=== PATIENT | male | born 1965 | race Caucasian/White ===

== ENCOUNTER → 2016-06-15 | Outpatient (CLI) | payer BC ==
[~2016-06-15] MED LIST: LEVO137T3 PO; LORA-741 PO; LOSA100T33 PO; LOSARTAN-HCTZ PO; LPT40 PO; LXP10 PO; OMEP40CA41 PO
--- NOTE | 2016-06-15 11:34 | DIAGNOSTIC IMAGING REPORT ---
CHEST 2 VIEWS ROUTINE CLINICAL HISTORY: Acute bronchitis COMPARISON STUDY: Chest radiograph August 14, 2015. FINDINGS: Lung volumes are normal. There is no pneumothorax or pleural effusion. No consolidation is identified. There is no evidence of pulmonary edema. Cardiac size is normal. Mediastinal contours are normal. IMPRESSION: No acute cardiopulmonary findings. Electronically signed by: Holland Au M.D. 06/15/2016 11:32 AM
== END | disposition home or self-care (01) ==
LOC: C.RADBC 11:09
PROVIDERS: ATTEND Internal Medicine
DX: J20.9 Acute bronchitis, unspecified (principal)

== ENCOUNTER 2016-10-03 13:12 | Emergency (ER) | payer BC, OTHER ==
[~2016-10-03] VITALS: Ht 170.2 cm; Wt 86.6 kg
[~2016-10-03 13:12] MED LIST changes: -LOSA100T33 PO; -LXP10 PO; -OMEP40CA41 PO
[2016-10-03 13:20] VITALS: TEMP 36.5; Ht 170.2 cm; Wt 86.6 kg
--- NOTE | 2016-10-03 13:48 | DIAGNOSTIC IMAGING REPORT ---
LEFT HAND 3 VIEWS HISTORY: Left hand pain. fall COMPARISON: None. FINDINGS: There is no fracture or dislocation. Mild dorsal soft tissue swelling. No radiopaque foreign bodies. IMPRESSION: No fractures. Electronically signed by: Low Cuello M.D. 10/03/2016 1:46 PM Dictated Date/Time: 10/03/2016 1:43 PM
[2016-10-03 14:10] VITALS: BP 145/94; PULSE 76; O2SAT 94
--- NOTE | 2016-10-03 16:19 | EMERGENCY ROOM VISIT NOTE ---
History First contact with patient: 13:26 Chief Complaint: HAND PAIN/INJURY Stated Complaint: HAND PAIN History of Present Illness The patient is a 51 year old male who presents to the Emergency Room with complaints of left hand pain. The patient reports that he fell over the weekend while fishing. He does not know if he landed on a rock, but noticed sudden onset of excruciating pain in the hand. As he was attempting to get up, he fell again. The patient reports persistent swelling and bruising of the hand. He denies any pain, paresthesias or numbness radiating into the wrist or forearm. The patient is [id number], and rates his discomfort a 4 out of 10. Review of Systems 10 system review was performed and was negative except for pertinent positives and negatives as indicated in history of present illness Past Medical/Surgical History Medical Problems: (1) Anxiety State Nos (2) Diaphragmatic Hernia (3) Esophageal reflux (4) GERD (gastroesophageal reflux disease) (5) Hyperlipidemia (6) Hypertension (7) Hypothyroidism Nos (8) thyroid problems (9) Tobacco Use Disorder Surgical Problems: (1) Lumbar sacral fusion history Family History FH: heart disease FH: hypertension Social History Smoking Status: Current Every Day Smoker Alcohol Use: occasionally Marital Status: Occupation Status: employed Current/Historical Medications Scheduled Atorvastatin (Atorvastatin Calcium), 40 MG PO DAILY Levothyroxine Sodium (Levothyroxine Sodium), 137 MCG PO DAILY [Losartan-Hctz], 1 TAB PO DAILY Scheduled PRN Lorazepam (Ativan), 0.5 MG PO Q6H PRN for Anxiety/Agitation Allergies Coded Allergies: Sulfa Drugs (Verified Allergy, Mild, HIVES, 09/19/14) Physical Exam Vital Signs Date Time Temp Pulse Resp B/P Pulse Ox O2 Delivery O2 Flow Rate FiO2 10/03/16 14:10 76 18 145/94 94 Room Air 10/03/16 13:20 36.5 80 18 151/91 94 Room Air Physical Exam CONSTITUTIONAL: Healthy and well nourished. Alert and oriented X 3 with positive affect. Patient does not appear in any acute distress. HEENT: Normocephalic, atraumatic. Pupils equal, round and reactive. NECK: Full active range of motion without discomfort. MUSCULOSKELETAL: Examination of the left hand shows diffuse edema and ecchymosis of the palm and dorsal distal third and fourth carpal region. The patient otherwise is able to flex and extend the fingers with mild discomfort. Capillary refill is less than 2 seconds. Negative anatomic snuffbox tenderness. The patient has no open wounds on the hand, fingers or wrist. INTEGUMENTARY: No rash or other significant dermatologic conditions noted. NEUROLOGIC: Left hand and fingers are sensory intact. Medical Decision & Procedures ER Provider Diagnostic Interpretation: My interpretation of left hand x-rays does not show any acute fractures or dislocations. Radiologist report is as follows: LEFT HAND 3 VIEWS HISTORY: Left hand pain. fall COMPARISON: None. FINDINGS: There is no fracture or dislocation. Mild dorsal soft tissue swelling. No radiopaque foreign bodies. IMPRESSION: No fractures. ED Course Patient history and physical exam were performed. Nurse's notes were reviewed. Vital signs were reviewed and normal. X-rays of the left hand were normal. The patient was advised that his symptoms are likely secondary to a contusion. He was encouraged to intermittently apply ice and elevate hand for swelling. Ibuprofen and/or Tylenol as needed for additional pain relief. He was given instructions on range of motion exercises to prevent stiffness. Follow-up with family doctor or orthopedics if symptoms have not improved within the next 5-7 days. The patient was happy with plan care, voiced understanding of all discharge instructions, and rated his discomfort a 3 out of 10 at the time of discharge. Impression Primary Impression: Contusion of left hand Departure Information Referrals No Doctor, Assigned (PCP) Patient Instructions My [facility] Problem Qualifiers Primary Impression: Contusion of left hand Encounter type: initial encounter Qualified Codes: S60.222A - Contusion of left hand, initial encounter
[2017-04-18] MEDS ORDERED: LXP10 PO (14:31)
[2017-04-18] MEDS ORDERED: LOSA100T33 PO (14:31)
[2017-04-18] MEDS ORDERED: OMEP40CA41 PO (14:31)
== END 2016-10-03 14:11 | disposition home or self-care (01) ==
LOC: C.EDB 13:13 → C.EDD 14:11
DX: M79.642 Pain in left hand (principal); W19.XXXA Unspecified fall, initial encounter; Y93.89 Activity, other specified; K21.9 Gastro-esophageal reflux disease without esophagitis; I10 Essential (primary) hypertension; E78.5 Hyperlipidemia, unspecified; Z82.49 Family history of ischemic heart disease and other diseases of the circulatory system; F17.210 Nicotine dependence, cigarettes, uncomplicated; Z79.899 Other long term (current) drug therapy

== ENCOUNTER → 2016-10-21 | Outpatient (CLI) | payer BC ==
[~2016-10-21] MED LIST changes: +LOSA100T33 PO; +LXP10 PO; +OMEP40CA41 PO
[2016-10-21 11:16] LABS: BLOOD UREA NITROGEN 14 mg/dl (7-18); BUN/CREATININE RATIO 12.8 (10-20); CARBON DIOXIDE 28 mmol/L (21-32); CHLORIDE 105 mmol/L (98-107); GLUCOSE 108 mg/dl (70-99); POTASSIUM 4.1 mmol/L (3.5-5.1); SODIUM 139 mmol/L (136-145)
[2016-10-21 11:58] LABS: CALCIUM 9.3 mg/dl (8.5-10.1)
== END | disposition home or self-care (01) ==
LOC: C.LABBC 08:02
PROVIDERS: ATTEND Internal Medicine
DX: I10 Essential (primary) hypertension (principal)

== ENCOUNTER → 2017-03-14 | Outpatient (CLI) | payer BC ==
[~2017-03-14] MED LIST changes: -LOSA100T33 PO; -LXP10 PO; -OMEP40CA41 PO
[2017-03-14 11:21] LABS: BASO % 1.1 %; COMPLETE YES; EOS % 5.3 %; HEMATOCRIT 46.8 % (42-52); IG% 0.2 %; LYMPH % 18.7 %; MEAN CELL VOLUME 96.1 fL (80-100); MEAN CORPUSCULAR HGB CONC 33.3 g/dl (32-36); MEAN PLATELET VOLUME 10.6 fL (7.4-10.4); MONO % 12.3 %; NEUT % 62.4 %; PLATELET COUNT 204 K/uL (130-400); RED BLOOD COUNT 4.87 M/uL (4.7-6.1); WHITE BLOOD COUNT 9.11 K/uL (4.8-10.8)
[2017-03-14 11:27] LABS: ALT/SGPT 46 U/L (12-78); BLOOD UREA NITROGEN 16 mg/dl (7-18); CALCIUM 9.2 mg/dl (8.5-10.1); CARBON DIOXIDE 29 mmol/L (21-32); CHLORIDE 104 mmol/L (98-107); CHOLESTEROL 222 mg/dl (0-200); GLUCOSE 98 mg/dl (70-99); POTASSIUM 3.7 mmol/L (3.5-5.1); SODIUM 140 mmol/L (136-145)
[2017-03-14 11:37] LABS: ALKALINE PHOSPHATASE 82 U/L (45-117); AST/SGOT 34 U/L (15-37); CHOLESTEROL/HDL RATIO 2.2; HDL CHOLESTEROL 100 mg/dl; LDL CHOLESTEROL CALCULATED 104 mg/dl; TRIGLYCERIDES 89 mg/dl (0-150); VERY LOW DENSITY LIPOPROT CALC 18 mg/dl
== END | disposition home or self-care (01) ==
LOC: C.LABBC 07:39
PROVIDERS: ATTEND Internal Medicine
DX: K21.9 Gastro-esophageal reflux disease without esophagitis (principal); E03.9 Hypothyroidism, unspecified

== ENCOUNTER 2020-02-24 23:46 | Observation (INO) ==
[2020-02-24] MEDS ORDERED: NITROGLYCERIN SL 0.4 MG/TAB TAB SL STA (23:58)
[2020-02-24] MEDS ORDERED: FAMOTIDINE 20 MG TAB PO ONE (23:58)
[2020-02-24] MEDS ORDERED: GI COCKTAIL ED USE PO ONE (23:58)
[2020-02-24] MEDS ORDERED: ASPIRIN 81 MG CHEW PO STA (23:58)
--- NOTE | 2020-02-25 00:03 | Emergency Department Note ---
Impression & Plan Left-sided chest pain, Alcohol intoxication, Hypokalemia, Hypomagnesemia ED Provider Note Name: SACHIN MCCALL Age: 55 Sex: M Arrives Via: Walk-In Informant: Patient ED Provider: Abdirahman Mukherjee MD Chief Complaint: Left Chest Pain Impression: Left-Sided Chest Pain Alcohol Intoxication Hypokalemia Hypomagnesemia Medical Decision Makin yr old male with history of Hypothyroid, HTN, GERD, DLP, Anxiety, Depression, Asthma and alcoholism arrives with acute left sided chest pain. Intermittent chest pain over the previous month or so without cardiac work-up thus far. Symptoms tonight far greater intensity and duration. Symptoms resolved with SLNTG. Given ASA and with this felt GI Cocktail/Pepcid given acute alcohol use and previous GERD issues. Patient makes clear Chest pain is not similar to GERD symptoms. He has quite an elevated ETOH though by exam is not heavily intoxicated. Good bilateral lower extremity pulses, normal CXR, and symptoms resolving thus I feel dissection risk is low and CTA not indicated. No hypoxia, no DVT findings, no PE/DVT history, and symptoms resolved with SLNTG, thus CTA for PE not indicated. Patient has multiple electrolyte issues consistent with chronic alcoholism thus banana bag given along with K and Mag. Patient stable throughout and agreeable to hospitalization. He is requesting catheterization but I discussed with him given normal trop, unremarkable EKG, and resolution of pain no indication at this time for cath team and further work-up needed before proceeding that direction. Prior Medical Record and Triage/Nursing Notes reviewed by Me Additional history obtained from chart Differentials:Cardiac ischemia, aortic dissection, pulmonary embolism, pn eumothorax, pneumonia, pericarditis, myocarditis, esophageal rupture, GERD, cholecystitis, pancreatitis, musculoskeletal, as well as other pathologies. Vital Signs: reviewed and remarkable for no significant abnormalities Interventions: saline lock, snltg, asa 162mg po, gi cocktail, pepcid po Labs:Reviewed and remarkable for hypoK, HypoMag Imaging:X ray results are stated below per my interpretation: Chest: 1 view: No infiltrate, no effusion, normal cardiac border. EKG:Per My Interpretation: Indication left Chest Pain: NSR 83 bpm, qtc 437. No Ectopy. No Ischemia. No previous for comparison Cardiac/Tele Monitoring: Cardiac Monitoring: An Order was placed for continuous cardiac monitoring. The monitor shows a rate of 80 with a normal sinus rhythm. Consults:Dr John JOHNSON Hospitalist Plan: Disposition:Hospitalization. Condition: Good Blood pressure:Normal.No Referral necessary Prescriptions:none PDMP: n/a History of Present Illness:55 yr old male with history HTN, DLP, Alcoholism, Hypothyroid, GERD arrives for evaluation of chest pain. Patient notes rapid onset left anterior chest pain over the last few hours. Worse with exertion. Better with rest. ASA 81mg PO x 2 without improvement. Denies cough, sob, syncope, headache, neck pain, nausea, vomiting, abdominal pain, weakness, nor other symptoms. No previous CAD though last stress test several years ago. Father of PA. Admits ETOH tonight. Denies left chest pain this severe before, though has had on and off chest pains for the last month without them being this severe nor this long lasting. No leg nor calf pain/swelling. Admits father of PA. ROS: See above HPI for pertinent positives & negatives. A total of 10 systems reviewed and were otherwise negative. Past Medical History:HTN, DLP, Alcoholism, Hypothyroid, GERD Past Surgical History:See Below Family History:See Below Social History:Smoker, Alcoholic, Home Medications:See Below Allergies:Sulfa, Ramses, Amlodipine, Clonidine, chantix Vitals:Blood Pressure: 152/103, Pulse 81, RR 24, T 36.5C, O2 99% on RA Physical Exam: GENERAL: Patient is uncomfortable appearing and in moderate distress. Smells slightly of alcohol EYES: No scleral icterus, unremarkable pupils. ENT: Mucous membranes moist, no nasal congestion. NECK: No masses appreciated, nomeningismus, trachea is midline. RESPIRATORY: No dyspnea. Clear to auscultation and equal bilaterally. No wheeze, no rhonchi. CARDIOVASCULAR: Regular rate and rhythm.No murmurs, rubs, gallops appreciated. GASTROINTESTINAL: Abdomen soft, non-tender, no peritonitis.Bowel sounds positive.No masses appreciated. BACK: No midline tenderness, no CVA tenderness EXTREMITIES: Normal motion all extremities, no cyanosis, no edema. NEUROLOGIC: Alert and oriented, no acute motor or sensory deficits, no focal weakness, cranial nerves grossly intact. SKIN: No rash, no jaundice, no diaphoresis. PSYCH: Appropriate GCS: 15 ED Course: Times/Reassessments: improved with meds and BP trending normal. Abdirahman Mukherjee MD Past Med/Surg History Medical History (Updated 02/25/20 @ 03:43 by Abdirahman Mukherjee MD) Adjustment disorder with depressed mood Alcohol intoxication Allergic rhinitis Anxiety Barretts esophagus Chronic cough Colon polyps Compression fracture of vertebra Current smoker GERD (gastroesophageal reflux disease) Hiatal hernia Hyperlipidemia Hypertension Hypothyroidism Inhibited sexual excitement Obstructive sleep apnea Periodic limb movements of sleep Small airways disease Surgical History History of appendectomy History of colonoscopy History of esophagogastroduodenoscopy (EGD) History of lumbar spinal fusion History of tonsillectomy History of tooth extraction WISDOM TEETH Hx of vasectomy S/P LASIK surgery of both eyes S/P wrist surgery R WRIST REPAIR OF TORN TENDON Family History Father Alcohol abuse COPD (chronic obstructive pulmonary disease) Hypertension Reported family history of early sudden deaths Mother Hypertension Hyperlipidemia Brother Hypertension Sister Graves' disease Social History (Updated 11/11/19 @ 10:33 by Apurva Espinal) Smoking Status: Current every day smoker Cigarettes Per Day: ABOUT 14 A DAY; Second Hand Exposure: No; Hx Alcohol Use: Yes Alcohol type: beer, wine and hard liquor Hx Substance Use: No Preferred Language: Gabonese Communication Ability: Effective Visual Impairment: Limited Hearing Ability: Normal Specialty Therapist Required: No Beliefs That Will Affect Care: None marital status: Current Living Situation: Alone Current Living Situation Comment: LIVES WITH GIRLFRIEND current occupational status: employed current occupation: [employer] Feels Safe at Home: Yes Safety Concerns: Feels Safe At This Time Childhood Exposure to Second-Hand Smoke: No caffeine: Yes Dental Care, Regularly: Yes Physical Activity Frequency: Does not Exercise Seatbelt Use: always Sunscreen Use: No Allergies Allergies Allergy/AdvReac Type Severity Reaction Status Date / Time Sulfa (Sulfonamide Allergy Mild HIVES Verified 02/25/20 00:36 Antibiotics) RAMSES Inhibitors Allergy COUGH Verified 02/25/20 00:36 amlodipine Allergy FATIGUE Verified 02/25/20 00:36 clonidine Allergy HEADACHES Verified 02/25/20 00:36 varenicline [From Chantix] Allergy Unknown Verified 02/25/20 00:36 Home Meds Previous Rx's Medication Instructions Recorded albuterol sulfate 90 mcg/actuation 1 puff INHALATION Q4H PRN #18 gm 03/15/19 aerosol inhaler atorvastatin 40 mg tablet 40 mg PO QPM #90 tab 08/29/19 escitalopram oxalate 10 mg tablet 10 mg PO QPM #90 tab 08/29/19 omeprazole 40 mg capsule,delayed 40 mg PO QPM #90 cap 08/29/19 release valsartan 160 1 tab PO DAILY #90 tab 08/29/19 mg-hydrochlorothiazide 12.5 mg tablet disulfiram 250 mg tablet 250 mg PO BID #180 tab 11/11/19 levothyroxine 137 mcg tablet 137 mcg PO DAILY #90 tab 01/06/20 tadalafil 5 mg tablet 5 mg PO DAILY #30 tab 01/14/20 Results & Data (ED) Vital Signs Vital Signs - 24 hr 02/24/20 23:52 02/24/20 23:53 02/24/20 23:57 Temperature 36.5 C Temperature Source Oral Pulse Rate 81 78 79 Pulse Rate from SpO2 Sensor 78 81 Respiratory Rate 24 16 21 Respiratory Effort / Characteristics Non-Labored Spontaneous Respiratory Depth Normal Blood Pressure 152/103 H 152/103 H Blood Pressure Mean 119 112 Pulse Oximetry 95 98 98 Oxygen Delivery Method Room Air Room Air Sepsis Recent Fever Within 48 Hours No Sepsis New/Unexplained Change in Mental Status No Sepsis Action Taken by Nursing No Action Required Pulse Oximetry Post Tiitration 99 02/25/20 00:00 02/25/20 00:01 02/25/20 00:10 Temperature Temperature Source Pulse Rate 75 75 77 Pulse Rate from SpO2 Sensor 75 75 78 Respiratory Rate 16 14 13 Respiratory Effort / Characteristics Respiratory Depth Blood Pressure 151/95 H Blood Pressure Mean 99 Pulse Oximetry 97 96 96 Oxygen Delivery Method Sepsis Recent Fever Within 48 Hours Sepsis New/Unexplained Change in Mental Status Sepsis Action Taken by Nursing Pulse Oximetry Post Tiitration 02/25/20 00:12 02/25/20 00:13 02/25/20 00:20 Temperature Temperature Source Pulse Rate 83 78 77 Pulse Rate from SpO2 Sensor 84 79 78 Respiratory Rate 20 20 16 Respiratory Effort / Characteristics Respiratory Depth Blood Pressure 121/75 Blood Pressure Mean 93 Pulse Oximetry 91 95 94 Oxygen Delivery Method Sepsis Recent Fever Within 48 Hours Sepsis New/Unexplained Change in Mental Status Sepsis Action Taken by Nursing Pulse Oximetry Post Tiitration 02/25/20 00:33 02/25/20 00:34 02/25/20 00:40 Temperature Temperature Source Pulse Rate 80 77 76 Pulse Rate from SpO2 Sensor 79 76 76 Respiratory Rate 13 Respiratory Effort / Characteristics Respiratory Depth Blood Pressure 113/66 Blood Pressure Mean 82 Pulse Oximetry 94 96 93 Oxygen Delivery Method Sepsis Recent Fever Within 48 Hours Sepsis New/Unexplained Change in Mental Status Sepsis Action Taken by Nursing Pulse Oximetry Post Tiitration 02/25/20 00:50 02/25/20 01:00 02/25/20 01:01 Temperature Temperature Source Pulse Rate 77 74 76 Pulse Rate from SpO2 Sensor 77 74 76 Respiratory Rate 24 12 17 Respiratory Effort / Characteristics Respiratory Depth Blood Pressure 99/65 L Blood Pressure Mean 70 Pulse Oximetry 94 92 94 Oxygen Delivery Method Sepsis Recent Fever Within 48 Hours Sepsis New/Unexplained Change in Mental Status Sepsis Action Taken by Nursing Pulse Oximetry Post Tiitration 02/25/20 01:10 02/25/20 01:20 02/25/20 01:30 Temperature Temperature Source Pulse Rate 74 69 73 Pulse Rate from SpO2 Sensor 73 70 71 Respiratory Rate 16 21 12 Respiratory Effort / Characteristics Respiratory Depth Blood Pressure 119/79 Blood Pressure Mean 94 Pulse Oximetry 90 94 94 Oxygen Delivery Method Sepsis Recent Fever Within 48 Hours Sepsis New/Unexplained Change in Mental Status Sepsis Action Taken by Nursing Pulse Oximetry Post Tiitration 02/25/20 01:31 02/25/20 01:40 02/25/20 01:50 Temperature Temperature Source Pulse Rate 73 76 67 Pulse Rate from SpO2 Sensor 72 75 67 Respiratory Rate 17 18 17 Respiratory Effort / Characteristics Respiratory Depth Blood Pressure Blood Pressure Mean Pulse Oximetry 95 94 93 Oxygen Delivery Method Sepsis Recent Fever Within 48 Hours Sepsis New/Unexplained Change in Mental Status Sepsis Action Taken by Nursing Pulse Oximetry Post Tiitration Laboratory Data Result diagrams: 02/24/20 23:59 02/25/20 02:48 Lab Results 02/24/20 02/24/20 02/25/20 Range/Units 23:59 23:59 00:10 WBC 9.07 (4.8-10.8) K/uL RBC 4.16 L (4.7-6.1) M/uL Hgb 13.9 L (14.0-18.0) g/dL Hct 40.0 L (42-52) % MCV 96.2 (80-100) fL MCH 33.4 (25-34) pg MCHC 34.8 (32-36) g/dL RDW Std Deviation 50.8 H (36.4-46.3) fL RDW Coeff of Joshua 14.6 H (11.5-14.5) % Plt Count 190 (130-400) K/uL MPV 9.8 (7.4-10.4) fL Immature Gran % (Auto) 0.3 % Neut % (Auto) 57.5 % Lymph % (Auto) 29.1 % Peach % (Auto) 10.1 % Eos % (Auto) 2.6 % Baso % (Auto) 0.4 % Neut # (Auto) 5.20 (1.4-6.5) K/uL Lymph # (Auto) 2.64 (1.2-3.4) K/uL Peach # (Auto) 0.92 H (0.11-0.59) K/uL Eos # (Auto) 0.24 (0-0.5) K/uL Baso # (Auto) 0.04 (0-0.2) K/uL Immature Gran # (Auto) 0.03 H (0.00-0.02) K/uL Sodium 141 (136-145) mmol/L Potassium 3.0 L (3.5-5.1) mmol/L Chloride 104 (98-107) mmol/L Carbon Dioxide 25 (21-32) mmol/L Anion Gap 12.0 H (3-11) BUN 10 (7-18) mg/dl Creatinine 1.08 (0.6-1.4) mg/dl Est Cr Clr Drug Dosing 81.4 ml/min Est GFR ( Amer) 88.5 Est GFR (Non-Af Amer) 76.3 BUN/Creatinine Ratio 9.6 L (10-20) Glucose 118 H (70-99) mg/dl Calcium 8.9 (8.5-10.1) mg/dl Magnesium 1.7 L (1.8-2.4) mg/dl Total Bilirubin 0.3 (0.2-1) mg/dl Direct Bilirubin < 0.1 (0-0.2) mg/dl AST 32 (15-37) U/L ALT 53 (12-78) U/L Alkaline Phosphatase 87 (45-117) U/L Troponin I < 0.015 (0-0.045) ng/ml Total Protein 7.5 (6.4-8.2) gm/dl Albumin 3.7 (3.4-5.0) gm/dl Ethyl Alcohol mg/dL 270.0 H (0-3) mg/dl Administered Medications Potassium Chloride/Sodium Chloride (Normal Saline W/20 Meq Kcl) 20 meq in 1,000 mls @ 100 mls/hr IV .Q10H NAEEM Stop: 03/26/20 02:59 Last Admin: 02/25/20 03:15 Dose: 100 mls/hr Documented by: [id number] Discontinued Medications Al Hydrox/Mg Hydrox/Simethicone (Gi Cocktail Ed Use) 1 dose PO ONE ONE Stop: 02/24/20 23:59 Last Admin: 02/25/20 00:12 Dose: 1 dose Documented by: [id number] Aspirin (Aspirin 81 Mg Chew) 162 mg PO NOW STA Stop: 02/24/20 23:59 Last Admin: 02/25/20 00:12 Dose: 162 mg Documented by: [id number] Famotidine (Famotidine 20 Mg Tab) 20 mg PO NOW ONE Stop: 02/24/20 23:59 Last Admin: 02/25/20 00:12 Dose: 20 mg Documented by: [id number] Multivitamins 10 ml/ Thiamine HCl 100 mg/ Folic Acid 1 mg/Sodium Chloride 1,011.2 mls @ 1,011.2 mls/hr IV .Q1H ONE Stop: 02/25/20 01:49 Last Infusion: 02/25/20 02:12 Dose: 0 mls/hr Documented by: [id number] Admin: 02/25/20 01:11 Dose: 1,011.2 mls/hr Documented by: [id number] Magnesium Sulfate/Dextrose (Magnesium Sulfate / D5w) 1 gm in 100 mls @ 100 mls/hr IV NOW STA Stop: 02/25/20 01:49 Last Infusion: 02/25/20 02:12 Dose: 0 mls/hr Documented by: [id number] Admin: 02/25/20 01:11 Dose: 100 mls/hr Documented by: [id number] Potassium Chloride (K Felice / Wtr) 10 meq in 100 mls @ 100 mls/hr IV ONE ONE Stop: 02/25/20 01:49 Last Infusion: 02/25/20 02:12 Dose: 0 mls/hr Documented by: [id number] Admin: 02/25/20 01:11 Dose: 100 mls/hr Documented by: [id number] Nitroglycerin (Nitroglycerin Sl 0.4 Mg/Tab Tab) 0.4 mg SL NOW STA Stop: 02/24/20 23:59 Last Admin: 02/25/20 00:12 Dose: 0.4 mg Documented by: [id number] Potassium Chloride (Potassium Chloride 20 Meq Tabcr) 40 meq PO NOW STA Stop: 02/25/20 02:42 Last Admin: 02/25/20 03:15 Dose: 40 meq Documented by: [id number] Discharge Plan Visit Data Chief Complaint: Chest Pain Stated Complaint: CHEST PAIN ED Provider: Abdirahman Mukherjee Discharge Problem: Left-sided chest pain, Alcohol intoxication, Hypokalemia, Hypomagnesemia Patient Disposition: Admitted As Inpatient Discharge Instructions Interventions: ED Discharge Assessment Last Done: 02/25/20 02:19 Discharge Problem: Alcohol intoxication Qualifiers: Complication of substance-induced condition: uncomplicated Qualified Code(s): F10.920 - Alcohol use, unspecified with intoxication, uncomplicated
[2020-02-25 00:14] LABS: Basophils # (auto) 0.04 K/uL (0-0.2); Basophils % (auto) 0.4 %; Eosinophils # (auto) 0.24 K/uL (0-0.5); Eosinophils % (auto) 2.6 %; Hemoglobin 13.9 g/dL (14.0-18.0); Immature Granulocytes # (auto) 0.03 K/uL (0.00-0.02); Immature Granulocytes % (auto) 0.3 %; Lymphocytes # (auto) 2.64 K/uL (1.2-3.4); Lymphocytes % (auto) 29.1 %; Mean Corpuscular Hemoglobin 33.4 pg (25-34); Mean Corpuscular Hgb Conc 34.8 g/dL (32-36); Mean Corpuscular Volume 96.2 fL (80-100); Mean Platelet Volume 9.8 fL (7.4-10.4); Monocytes # (auto) 0.92 K/uL (0.11-0.59); Monocytes % (auto) 10.1 %; Neutrophils % (auto) 57.5 %; Platelet Count 190 K/uL (130-400); RDW Coefficient of Variation 14.6 % (11.5-14.5); RDW Standard Deviation 50.8 fL (36.4-46.3); Red Blood Count 4.16 M/uL (4.7-6.1); White Blood Count 9.07 K/uL (4.8-10.8)
[2020-02-25 00:38] LABS: Alanine Aminotransferase 53 U/L (12-78); Albumin Level 3.7 gm/dl (3.4-5.0); Aspartate Aminotransferase 32 U/L (15-37); BUN Creatinine Ratio 9.6 (10-20); Bilirubin Direct < 0.1 mg/dl (0-0.2); Blood Urea Nitrogen 10 mg/dl (7-18); Calcium 8.9 mg/dl (8.5-10.1); Carbon Dioxide 25 mmol/L (21-32); Chloride 104 mmol/L (98-107); Creatinine Clr Calc Pharmacy 81.4 ml/min; Est GFR (African American) 88.5; Est GFR (Non-African American) 76.3; Glucose 118 mg/dl (70-99); Magnesium 1.7 mg/dl (1.8-2.4); Sodium 141 mmol/L (136-145)
[2020-02-25 00:43] LABS: Alkaline Phosphatase 87 U/L (45-117); Bilirubin,Total 0.3 mg/dl (0.2-1); Total Protein 7.5 gm/dl (6.4-8.2); Troponin I < 0.015 ng/ml (0-0.045)
[2020-02-25] MEDS ORDERED: MULTI-VITAMIN INFUSION 10 ML, THIAMINE HCL 100 MG, FOLIC ACID 1 MG in SODIUM CHLORIDE 0... IV ONE (00:50)
[2020-02-25] MEDS ORDERED: MAGNESIUM SULFATE / D5W 1 GM/100 ML BAG IV STA (00:50)
[2020-02-25] MEDS ORDERED: POTASSIUM CHLORIDE / WTR 10 MEQ/100 ML PLCT IV ONE (00:50)
--- NOTE | 2020-02-25 01:54 | History & Physical Report ---
Date of Service February 25, 2020 Assessment & Plan (1) Left-sided chest pain: The patient will be admitted to telemetry for serial cardiac enzymes, serial EKG's, cardiac rhythm monitoring and a 2-D echocardiogram with Dopplers. Risk factors include age, hypertension, hyperlipidemia and tobacco use. Holding his antihypertensives at this time due to blood pressure of 99/65 while in the ED. Present on Admission?: Yes (2) Alcohol intoxication: Alcohol intoxication/alcohol abuse- Hold disulfiram. Present on Admission?: Yes (3) Hypokalemia: Potassium 3.0 upon admission and magnesium 1.7. Replace both orally and IV. Follow serial laboratories. Hold for losartan/HCTZ Present on Admission?: Yes (4) Asthma: Hold albuterol HFA Present on Admission?: Yes (5) Hypothyroidism: Continue levothyroxine 137 mcg daily Present on Admission?: Yes (6) Anxiety: Continue Lexapro 10 mg daily Present on Admission?: Yes (7) Hypertension: (8) Barretts esophagus: Hunter's esophagus/GERD- Omeprazole 40 mg p.o. daily Present on Admission?: Yes (9) Hyperlipidemia: Continue atorvastatin 40 mg p.o. daily. Check a fasting lipid panel and hemoglobin A1c Present on Admission?: Yes (10) Alcohol abuse: Holding disulfiram as noted above Present on Admission?: Yes History of Present Illness Chief Complaint: The patient presents to the emergency department with complaint of severe left-sided chest pain, that was improved by sublingual nitroglycerin in the ED. Primary Care Provider: Harmeet Wright MD The patient is a 55-year-old male past medical history including asthma, hypothyroidism, adjustment disorder with depressed mood, allergic rhinitis, anxiety, Hunter's esophagus, chronic cough, colon polyps, hiatal hernia, obstructive sleep apnea, periodic limb movements of sleep, small airways disease, hypertension, alcohol use disorder, hyperlipidemia and GERD. The patient presents to the ED tonight with acute onset of severe left-sided chest pain, unlike ending is experienced in the past. He tried taking 2 baby aspirin at home without relief, but did have significant improvement with sublingual nitroglycerin given in the ED. He has had a stress test in the past, but has not had a cardiac catheterization. His father reportedly because his heart stopped, but there was no confirmation of MRI per the patient Allergies Allergy/AdvReac Type Severity Reaction Status Date / Time Sulfa (Sulfonamide Allergy Mild HIVES Verified 02/25/20 00:36 Antibiotics) MARGARET Inhibitors Allergy COUGH Verified 02/25/20 00:36 amlodipine Allergy FATIGUE Verified 02/25/20 00:36 clonidine Allergy HEADACHES Verified 02/25/20 00:36 varenicline [From Chantix] Allergy Unknown Verified 02/25/20 00:36 Home Medications Home Medications Medication Instructions Recorded Confirmed Type albuterol sulfate 90 mcg/actuation 1 puff INHALATION Q4H PRN #18 gm 03/15/19 02/25/20 Rx aerosol inhaler atorvastatin 40 mg tablet 40 mg PO QPM #90 tab 08/29/19 02/25/20 Rx escitalopram oxalate 10 mg tablet 10 mg PO QPM #90 tab 08/29/19 02/25/20 Rx omeprazole 40 mg capsule,delayed 40 mg PO QPM #90 cap 08/29/19 02/25/20 Rx release valsartan 160 1 tab PO DAILY #90 tab 08/29/19 02/25/20 Rx mg-hydrochlorothiazide 12.5 mg tablet disulfiram 250 mg tablet 250 mg PO BID #180 tab 11/11/19 02/25/20 Rx levothyroxine 137 mcg tablet 137 mcg PO DAILY #90 tab 01/06/20 02/25/20 Rx tadalafil 5 mg tablet 5 mg PO DAILY #30 tab 01/14/20 02/25/20 Rx Past Med/Surg History Medical History (Updated 02/25/20 @ 03:43 by Abdirahman Mukherjee MD) Adjustment disorder with depressed mood Alcohol abuse Alcohol intoxication Allergic rhinitis Anxiety Barretts esophagus Chronic cough Colon polyps Compression fracture of vertebra Current smoker GERD (gastroesophageal reflux disease) Hiatal hernia Hyperlipidemia Hypertension Hypothyroidism Inhibited sexual excitement Obstructive sleep apnea Periodic limb movements of sleep Small airways disease Surgical History History of appendectomy History of colonoscopy History of esophagogastroduodenoscopy (EGD) History of lumbar spinal fusion History of tonsillectomy History of tooth extraction WISDOM TEETH Hx of vasectomy S/P LASIK surgery of both eyes S/P wrist surgery R WRIST REPAIR OF TORN TENDON Family History Father Alcohol abuse COPD (chronic obstructive pulmonary disease) Hypertension Reported family history of early sudden deaths Mother Hypertension Hyperlipidemia Brother Hypertension Sister Graves' disease Social History (Updated 11/11/19 @ 10:33 by Apurva Espinal) Smoking Status: Current every day smoker Cigarettes Per Day: ABOUT 14 A DAY; Second Hand Exposure: No; Hx Alcohol Use: Yes Alcohol type: beer, wine and hard liquor Hx Substance Use: No Preferred Language: Greenlandic Communication Ability: Effective Visual Impairment: Limited Hearing Ability: Normal [employer] Carpets Required: No Beliefs That Will Affect Care: None marital status: Current Living Situation: Alone Current Living Situation Comment: LIVES WITH GIRLFRIEND current occupational status: employed current occupation: [employer] Feels Safe at Home: Yes Safety Concerns: Feels Safe At This Time Childhood Exposure to Second-Hand Smoke: No caffeine: Yes Dental Care, Regularly: Yes Physical Activity Frequency: Does not Exercise Seatbelt Use: always Sunscreen Use: No Review of Systems Review of Systems: The patient denies palpitations, shortness of breath, dyspnea on exertion, lower extremity swelling, sore throat, fevers, chills, sweats, fatigue, nausea, vomiting, diarrhea , constipation, abdominal pain, pelvic pain, blood in urine or stool, dysuria, urinary frequency or urgency, lightheadedness, dizziness, headache, memory loss, loss of consciousness, rash, abnormal bruising or bleeding, imbalance, focal or generalized weakness, numbness or tingling in arms or legs, generalized arthralgias or myalgias, back or neck pain, or night sweats. The review of systems is otherwise negative other than for that already noted above, and at least 10 systems have been reviewed. Physical Exam Physical Exam: The patient is awake, alert and oriented 3, well developed and well nourished, normocephalic and atraumatic, lying in bed and in no acute distress. HEENT--PERRL, EOMI, mucous membranes and oropharynx normal. Neck--supple. No JVD. No bruits. Thyroid normal, trachea midline, no adenopathy. Heart--normal S1 and S2. No murmurs, rubs or gallops. Lungs--clear bilaterally, no respiratory distress, no accessory muscle use. Abdomen--normal bowel sounds and soft. Nontender. Nondistended. Mildly tympanitic and distended Extremities--no cyanosis or clubbing. No edema. Dermatologic--normal skin turgor, normal color, no abnormal lymph nodes, no rash. Neurologic--cranial nerves II through XII grossly intact. Rheumatologic--normal range of motion. Psychiatric--normal affect. Results & Data Results & Data ([facility]) Vital Signs (Past 12 Hours) Vital Signs Temp Pulse Resp BP Pulse Ox 02/25/20 00:20 77 16 94 02/25/20 00:13 78 20 95 02/25/20 00:12 83 20 121/75 91 02/25/20 00:10 77 13 96 02/25/20 00:01 75 14 96 02/25/20 00:00 75 16 151/95 H 97 02/24/20 23:57 79 21 98 02/24/20 23:53 78 16 152/103 H 98 02/24/20 23:52 97.7 F 81 24 152/103 H 95 Laboratory Results Laboratory Results WBC 9.07 K/uL (4.8-10.8) 02/24/20 23:59 RBC 4.16 M/uL (4.7-6.1) L 02/24/20 23:59 Hgb 13.9 g/dL (14.0-18.0) L 02/24/20 23:59 Hct 40.0 % (42-52) L 02/24/20 23:59 MCV 96.2 fL (80-100) 02/24/20 23:59 MCH 33.4 pg (25-34) 02/24/20 23:59 MCHC 34.8 g/dL (32-36) 02/24/20 23:59 RDW Std Deviation 50.8 fL (36.4-46.3) H 02/24/20 23:59 RDW Coeff of Joshua 14.6 % (11.5-14.5) H 02/24/20 23:59 Plt Count 190 K/uL (130-400) 02/24/20 23:59 MPV 9.8 fL (7.4-10.4) 02/24/20 23:59 Immature Gran % (Auto) 0.3 % 02/24/20 23:59 Neut % (Auto) 57.5 % 02/24/20 23:59 Lymph % (Auto) 29.1 % 02/24/20 23:59 [place] % (Auto) 10.1 % 02/24/20 23:59 Eos % (Auto) 2.6 % 02/24/20 23:59 Baso % (Auto) 0.4 % 02/24/20 23:59 Neut # (Auto) 5.20 K/uL (1.4-6.5) 02/24/20 23:59 Lymph # (Auto) 2.64 K/uL (1.2-3.4) 02/24/20 23:59 [place] # (Auto) 0.92 K/uL (0.11-0.59) H 02/24/20 23:59 Eos # (Auto) 0.24 K/uL (0-0.5) 02/24/20 23:59 Baso # (Auto) 0.04 K/uL (0-0.2) 02/24/20 23:59 Immature Gran # (Auto) 0.03 K/uL (0.00-0.02) H 02/24/20 23:59 Sodium 145 mmol/L (136-145) 02/25/20 02:48 Potassium 3.7 mmol/L (3.5-5.1) D 02/25/20 02:48 Chloride 109 mmol/L (98-107) H 02/25/20 02:48 Carbon Dioxide 30 mmol/L (21-32) 02/25/20 02:48 Anion Gap 6.0 (3-11) 02/25/20 02:48 BUN 10 mg/dl (7-18) 02/25/20 02:48 Creatinine 1.01 mg/dl (0.6-1.4) 02/25/20 02:48 Est Cr Clr Drug Dosing 85.9 ml/min 02/25/20 02:48 Est GFR ( Amer) 95.9 02/25/20 02:48 Est GFR (Non-Af Amer) 82.8 02/25/20 02:48 BUN/Creatinine Ratio 9.8 (10-20) L 02/25/20 02:48 Glucose 101 mg/dl (70-99) H 02/25/20 02:48 Calcium 8.5 mg/dl (8.5-10.1) 02/25/20 02:48 Magnesium 1.7 mg/dl (1.8-2.4) L 02/24/20 23:59 Total Bilirubin 0.3 mg/dl (0.2-1) 02/24/20 23:59 Direct Bilirubin < 0.1 mg/dl (0-0.2) 02/24/20 23:59 AST 32 U/L (15-37) 02/24/20 23:59 ALT 53 U/L (12-78) 02/24/20 23:59 Alkaline Phosphatase 87 U/L (45-117) 02/24/20 23:59 Troponin I < 0.015 ng/ml (0-0.045) 02/24/20 23:59 Total Protein 7.5 gm/dl (6.4-8.2) 02/24/20 23:59 Albumin 3.7 gm/dl (3.4-5.0) 02/24/20 23:59 Ethyl Alcohol mg/dL 270.0 mg/dl (0-3) H 02/25/20 00:10 Code Status & VTE Plan Code Status Full code VTE Prophylaxis Plan VTE Prophylaxis will be ordered: Yes PG Care Time/CCT Total # of Minutes Spent Total Time Spent with Patient: Total time spent is greater than 50% in coordination of care (as documented) at patient's floor/unit and/or counseling patient: Coding Level of Care Code 03580 OBS Care - Level 3 Diagnoses Left-sided chest pain R07.9 Alcohol intoxication F10.920 Complication of substance-induced condition: uncomplicated Hypokalemia E87.6 Asthma J45.909 Hypothyroidism E03.9 Anxiety F41.9 Hypertension I10 Barretts esophagus K22.70 Hyperlipidemia E78.5 Alcohol abuse F10.10 (1) Alcohol intoxication Complication of substance-induced condition: uncomplicated Qualified Code(s): F10.920 - Alcohol use, unspecified with intoxication, uncomplicated
[2020-02-25] MEDS ORDERED: ACETAMINOPHEN 325 MG TAB PO PRN (02:41)
[2020-02-25] MEDS ORDERED: MAGNESIUM HYDROXIDE SUSP 30 ML UDC PO PRN (02:41)
[2020-02-25] MEDS ORDERED: POTASSIUM CHLORIDE 20 MEQ TABCR PO STA (02:41)
[2020-02-25] MEDS ORDERED: ONDANSETRON INJ 2 MG/ML 2 ML VIAL IV PRN (02:41)
[2020-02-25] MEDS ORDERED: ALUMINUM/MAGNESIUM SUSP 30 ML UDC PO PRN (02:41)
[2020-02-25] MEDS ORDERED: NSS + 20MEQ KCL 20 MEQ/1,000 ML BAG IV SCH (03:00)
[2020-02-25 03:26] LABS: BUN Creatinine Ratio 9.8 (10-20); Calcium 8.5 mg/dl (8.5-10.1); Creatinine Clr Calc Pharmacy 85.9 ml/min; Est GFR (African American) 95.9; Est GFR (Non-African American) 82.8; Potassium 3.7 mmol/L (3.5-5.1)
[2020-02-25] MEDS ORDERED: LEVOTHYROXINE SODIUM 137 MCG TABLET PO SCH (06:30)
[2020-02-25 07:09] LABS: BUN Creatinine Ratio 9.8 (10-20); Blood Urea Nitrogen 9 mg/dl (7-18); Calcium 8.7 mg/dl (8.5-10.1); Carbon Dioxide 28 mmol/L (21-32); Chloride 111 mmol/L (98-107); Creatinine Clr Calc Pharmacy 95.4 ml/min; Est GFR (African American) 108.8; Est GFR (Non-African American) 93.9; Glucose 90 mg/dl (70-99); Sodium 145 mmol/L (136-145)
[2020-02-25 07:14] LABS: Troponin I < 0.015 ng/ml (0-0.045)
[2020-02-25] MEDS ORDERED: MAGNESIUM OXIDE 400 MG TAB PO ONE ×2 (07:27→12:00)
--- NOTE | 2020-02-25 07:47 | XRay Report ---
XR chest 1V portable CLINICAL HISTORY: Chest pain. COMPARISON STUDY: Chest CT March 04, 2019. FINDINGS: Lung volumes are normal. Lungs are clear. There is no pneumothorax or pleural effusion. Car diac size is normal. Mediastinal contours are normal. There is no evidence for pulmonary edema. IMPRESSION: No acute cardiopulmonary findings. ACT 112: Negative or not required by law. Electronically signed by: Holland Au M.D. 02/25/2020 7:45 AM
[2020-02-25] MEDS ORDERED: PANTOprazole 40 MG TAB PO SCH (09:00)
[2020-02-25] MEDS ORDERED: NICOTINE 14 MG/24 HR PATCH TD SCH (10:00)
--- NOTE | 2020-02-25 11:06 | XCELERA ---
[id number] \\[id number]_[id number]___[id number]
--- NOTE | 2020-02-25 11:08 | XCELERA ---
[id number] \\[id number]\PDF_[id number]___[id number]
--- NOTE | 2020-02-25 15:12 | Electrocardiogram Report ---
Test Reason : Blood Pressure : / mmHG Vent. Rate : 083 BPM Atrial Rate : 083 BPM P-R Int : 156 ms QRS Dur : 086 ms QT Int : 372 ms P-R-T Axes : 072 060 061 degrees QTc Int : 437 ms Poor data quality, interpretation may be adversely affected Normal sinus rhythm Nonspecific T wave abnormality Abnormal ECG When compared with ECG of 18-APR-2017 13:14, Nonspecific T wave abnormality now evident in Lateral leads Confirmed by Wiliam Vee ([id number]) on 02/25/2020 3:12:49 PM Referred By: REFERRED SELF Confirmed By:Wiliam Vee
--- NOTE | 2020-02-25 15:15 | Electrocardiogram Report ---
Test Reason : Blood Pressure : / mmHG Vent. Rate : 078 BPM Atrial Rate : 078 BPM P-R Int : 124 ms QRS Dur : 082 ms QT Int : 378 ms P-R-T Axes : 016 068 057 degrees QTc Int : 430 ms Normal sinus rhythm Normal ECG When compared with ECG of 24-FEB-2020 23:50, (unconfirmed) No significant change was found Confirmed by Wiliam Vee ([id number]) on 02/25/2020 3:15:12 PM Referred By: REFERRED SELF Confirmed By:Wiliam Vee
--- NOTE | 2020-02-25 18:17 | Discharge Summary ---
Date of Service February 25, 2020 Admission HPI Per Admitting Provider The patient is a 55-year-old male past medical history including asthma, hypothyroidism, adjustment disorder with depressed mood, allergic rhinitis, anxiety, Hunter's esophagus, chronic cough, colon polyps, hiatal hernia, obstructive sleep apnea, periodic limb movements of sleep, small airways disease, hypertension, alcohol use disorder, hyperlipidemia and GERD. The patient presents to the ED tonight with acute onset of severe left-sided chest pain, unlike ending is experienced in the past. He tried taking 2 baby aspirin at home without relief, but did have significant improvement with sublingual nitroglycerin given in the ED. He has had a stress test in the past, but has not had a cardiac catheterization. His father reportedly because his heart stopped, but there was no confirmation of MRI per the patient Principal Diagnosis rib related chest pain Discharge Exam gen aaox3 pleasant nad heent nc at mmm breathing unlabored no accessory muscles good effort skin no rashes no pallor or icterus. L sided ribs somewhat tender intercostals. seems to reproduce chest pain some Discharge Data Allergies Allergy/AdvReac Type Severity Reaction Status Date / Time Sulfa (Sulfonamide Allergy Mild HIVES Verified 02/25/20 00:36 Antibiotics) MARGARET Inhibitors Allergy COUGH Verified 02/25/20 00:36 amlodipine Allergy FATIGUE Verified 02/25/20 00:36 clonidine Allergy HEADACHES Verified 02/25/20 00:36 varenicline [From Chantix] Allergy Unknown Verified 02/25/20 00:36 Consultations 02/25/20 00:55 ED Decision to Admit Stat Hospital Course (1) Left-sided chest pain: CA ruled out with reassuring EKGs and negative troponins unstable angina quite unlikely due to reassuring stress test at 85% MPHR alternate explanation of rib pain far more likely stable for home BP up but also seemed reasonably stressed about hospital stay - outpt f/u on this (2) Alcohol intoxication: Alcohol intoxication/alcohol abuse- outpt f/u (3) Hypokalemia: replaced. outpt f/u Total Time Total Time Spent Total Time Spent (In Minutes): <30 Discharge Plan Discharge Items Patient Disposition: Home - Self-Care Reason For Visit: CHEST PAIN Discharge Diagnosis: chest pain Activity: Per Instructions section Non-emergency contact: Primary Care Provider Call non-emergency contact if: your symptoms worsen Follow-up/Referrals: Harmeet Wright MD [Primary Care Provider] - 03/03/20 3:45 pm (PLEASE COME 15 MNUTES EARLY WAIT IN YOUR CAR AND THEY WILL CALL WHEN THEY ARE REAADY TO SEE YOU.) Diet: Heart Healthy Addtl Attending Provider Instructions: Chest pain You came to the hospital for chest pain that was severe in your left chest. Given that you have a history of hypertension, elevated lipids, and tobacco use we were concerned that the chest pain may be from your heart. We evaluated your heart with EKG, labs, ECHO (ultrasound of your heart), we also did a stress test. The chest pain appears to be caused by muscles between your ribs. We reviewed some stretches that may improve your symptoms. To decrease your risk of cardiac issues you should exercise 150 minutes a week at a moderate intensity. You can also try to eat a "Mediterranean diet". Tobacco use You brought up that you were interested in quitting smoking. You have used patches in the past and felt that this worked well for you. Pending Studies at Discharge: No Stand-Alone Forms: My [facility], Smoking Cessation Medications and DC Order Prescriptions: New nicotine 14 mg/24 hr patch 24 hour 1 patch transdermal DAILY Qty: 14 RF: 0 Continued albuterol sulfate [ProAir HFA] 90 mcg/actuation HFA aerosol inhaler 1 puff INHALATION Q4H PRN (Reason: shortness of breath) Qty: 18 RF: 3 atorvastatin 40 mg tablet 40 mg PO QPM Qty: 90 RF: 3 omeprazole 40 mg capsule,delayed release(DR/EC) 40 mg PO QPM Qty: 90 RF: 3 escitalopram oxalate 10 mg tablet 10 mg PO QPM Qty: 90 RF: 3 valsartan-hydrochlorothiazide 160-12.5 mg tablet 1 tab PO DAILY Qty: 90 RF: 3 levothyroxine 137 mcg tablet 137 mcg PO DAILY Qty: 90 RF: 3 tadalafil 5 mg tablet 5 mg PO DAILY Qty: 30 RF: 5 disulfiram 250 mg tablet 250 mg PO BID Qty: 180 RF: 3 Discharge Orders: Discharge Order (Routine); Ordered 02/25/20 Ordered By: [address]/Other Patient Handouts: Alcohol Addiction Admission Data Admit Date/Time: 02/25/20 01:53 Attending Provider: Vic Nguyen Admit Provider: Ramana Lopez Primary Care Provider: Harmeet Wright Other Providers: Ramana Lopez Other Interventions: Discharge Summary Assessment (RN) Last Done: 02/25/20 12:14 Coding Level of Care Code 67008 OBS Care - Discharge Diagnoses Left-sided chest pain R07.9 Alcohol intoxication F10.920 Complication of substance-induced condition: uncomplicated Hypokalemia E87.6
[2020-02-25] MEDS ORDERED: ESCITALOPRAM OXALATE 10 MG TAB PO SCH (21:00)
[2020-02-25] MEDS ORDERED: ATORVASTATIN 40 MG TAB PO SCH (21:00)
[2020-02-25] MEDS ORDERED: NON-FORMULARY MEDICATION (Omeprazole 40 MG) PO SCH (21:00)
== END 2020-02-25 12:49 | disposition home or self-care (01) ==
LOC: 2E 23:46 → ED 23:46 → SUATTDRO 02-25 01:53 → 2E 02-25 02:19

== ENCOUNTER 2023-08-11 22:42 | Inpatient (IN) ==
[2023-08-11 23:38] LABS: Basophils # (auto) 0.01 K/uL (0.00-0.20); Basophils % (auto) 0.1 %; Hematocrit (blood only) 38.2 % (42.0-52.0); Hemoglobin 13.2 g/dl (14.0-18.0); Immature Granulocytes # (auto) 0.07 K/uL (0.01-0.20); Lymphocytes # (auto) 0.45 K/uL (1.20-3.40); Lymphocytes % (auto) 6.4 %; Mean Corpuscular Hemoglobin 34.3 pg (25.0-34.0); Mean Corpuscular Hgb Conc 34.6 g/dL (32.0-36.0); Mean Corpuscular Volume 99.2 fL (80.0-100.0); Mean Platelet Volume 11.5 fL (9.4-12.4); Monocytes # (auto) 0.65 K/uL (0.11-0.59); Monocytes % (auto) 9.3 %; Neutrophils # (auto) 5.81 K/uL (1.40-6.50); Neutrophils % (auto) 83.2 %; Nucleated RBC # (auto) 0.07 K/uL (0.00-0.12); Platelet Count 125 K/uL (130-400); RDW Coefficient of Variation 16.6 % (11.5-14.5); RDW Standard Deviation 60.3 fL (36.4-46.3); Red Blood Count 3.85 M/uL (4.70-6.10); White Blood Count 6.99 K/ul (4.8-10.8)
[2023-08-11 23:42] LABS: Albumin Globulin Ratio 1.4 (0.9-2); Albumin Level 4.6 gm/dl (3.4-5.0); BUN Creatinine Ratio 20.3 (10-20); Bilirubin,Total 2.2 mg/dl (0.2-1.0); Calcium 10.3 mg/dl (8.6-10.3); Est GFR (African American) 47.7 ml/min; Est GFR (Non-African American) 41.1 ml/min; Globulin 3.4 gm/dl (2.5-4.0); Potassium 3.1 mmol/L (3.5-5.1)
[2023-08-11 23:57] LABS: Thyroid Stimulating Hormone 25.498 uIu/ml (0.300-4.500)
[2023-08-12 00:03] LABS: Acetaminophen < 3 ug/ml (10-30); Salicylate < 3.0 mg/dl (3.0-30)
[2023-08-12 00:17] LABS: Influenza A virus by PCR Negative (Neg); Influenza B virus by PCR Negative (Neg); RSV by PCR Negative (Neg); SARS CoV2 RNA(COVID-19) Ceph NEGATIVE (Negative)
[2023-08-12 00:35] LABS: Magnesium 1.8 mg/dl (1.7-2.4)
[2023-08-12] MEDS: SODIUM CHLORIDE 0.9% 1,000 ML IV ONE (01:05)
--- NOTE | 2023-08-12 01:09 | History & Physical Report ---
"Date of Service August 12, 2023 Assessment & Plan (1) Alcohol abuse: (2) Adjustment disorder with depressed mood: (3) Hypothyroidism: (4) Barretts esophagus: (5) GERD (gastroesophageal reflux disease): (6) Asthma: (7) Hyperlipidemia: (8) Hypertension: Plan Alcohol Use Disorder -Patient states he drinks 1 pint of vodka daily, last drink at 6pm on 08/10 -Denies any prior seizures from alcohol withdrawal -Has been on naltrexone, disulfiram in the past. Has previously been to [facility]/rehab -[facility] protocol ordered, will start daily thiamine and folic acid Adjustment Disorder with Depressed Mood -Patient denies current SI or H -Currently on Lexapro. Has not consistently seeing counselor at [place] -Psychiatry consulted, appreciate recommendations Elevated Liver Function Tests -MELD score calculated: 17 -AST, ALT, alk phos and bili elevated from prior tests, likely secondary to ongoing alcohol consumption Hypothyroidism -TSH on admission elevated to 25 -Unsure if patient has been taking medication as prescribed, may need to repeat as outpatient and adjust home dosage -Continue levothyroxine Acute Kidney Injury -Cr at 1.77 on admission, baseline from prior labs appears to be ~1.1 -Monitor Cr with repeat BMP in a.m. Hypokalemia -Potassium of 3.1 on arrival -Repletion ordered, recheck metabolic panel in a.m. GERD | Hunter's Esophagus -Continue daily PPI Hypertension -Continue valsartan-HCTZ Hyperlipidemia -Continue atorvastatin, ezetimibe Admit to telemetry Diet: Heart healthy Code Status: full code History of Present Illness Primary Care Provider: DO Alexei Jenkins Bryan is a 58 year-old male with past medical history including asthma, hypothyroidism, adjustment disorder with depressed mood, allergic rhinitis, anxiety, Hunter's esophagus, chronic cough, colon polyps, hiatal hernia, obstructive sleep apnea, periodic limb movements of sleep, small airways disease, hypertension, alcohol use disorder, hyperlipidemia and GERD. He was brought in by EMS due to concern for ongoing drinking and inability for him to care for himself. Patient endorses drinking 1 pint of vodka per day (last drink was at 6pm), per prior documentation there was concern that patient was not eating for several days at a time and was only leaving the house to buy alcohol. Patient states he used to go to [facility] but has not been going as of late. He denies any specific reason that he has stopped taking his naltrexone and going to [facility]. He states he knows that he drinks too much and would like to stop, but is not interested in going to rehab at this time. Patient denies any nausea/vomiting/abdominal pain/urinary changes. Denies SI or HI at this time. Patient denies any prior history of seizures with alcohol withdrawal. Allergies Allergy/AdvReac Type Severity Reaction Status Date / Time Sulfa (Sulfonamide Allergy Mild HIVES Verified 08/12/23 02:12 Antibiotics) MARGARET Inhibitors Allergy Unknown COUGH Verified 08/12/23 02:12 amlodipine Allergy Unknown FATIGUE Verified 08/12/23 02:12 clonidine Allergy Unknown HEADACHES Verified 08/12/23 02:12 varenicline [From Chantix] Allergy Unknown Unknown Verified 08/12/23 02:12 Home Medications Medication Instructions Recorded Confirmed Type ezetimibe 10 mg tablet 10 mg PO HS 07/29/21 08/12/23 History atorvastatin 40 mg tablet 40 mg PO QPM #90 tabs 09/01/22 08/12/23 Rx omeprazole 40 mg capsule,delayed 40 mg PO QPM #90 caps 09/01/22 08/12/23 Rx release multivitamin 1 tab PO QAM 11/10/22 08/12/23 History tadalafil 5 mg tablet 5 mg PO DAILY PRN Erectile 11/10/22 08/12/23 History Dysfunction valsartan 320 1 tab PO QAM 11/10/22 08/12/23 History mg-hydrochlorothiazide 12.5 mg tablet levothyroxine 125 mcg tablet 125 mcg PO QAM #90 tabs 12/27/22 08/12/23 Rx valacyclovir 1 gram tablet 1,000 mg PO TID #21 tabs 05/31/23 08/12/23 Rx (Valtrex) escitalopram oxalate 20 mg tablet 20 mg PO QPM #90 tabs 06/09/23 08/12/23 Rx disulfiram 250 mg tablet See Rx Instructions .Route 06/28/23 08/12/23 Rx .COMPLEX #60 tabs albuterol sulfate 90 mcg/actuation See Rx Instructions .Route 06/30/23 08/12/23 Rx aerosol inhaler .COMPLEX #18 ea Past Med/Surg History Medical History (Updated 08/12/23 @ 14:24 by Savanah Craven PA-C) Prediabetes Presumed- Hgb A1C 6.3 on 10/12/22 Coronary artery calcification seen on CAT scan chest CT 03/2020 negative stress test 06/2021 Alcohol abuse Adjustment disorder with depressed mood Allergic rhinitis Anxiety Barretts esophagus Chronic cough Hiatal hernia Obstructive sleep apnea no device Periodic limb movements of sleep Small airways disease prn inhaler for this > rare res inh use Hypothyroidism GERD (gastroesophageal reflux disease) Hyperlipidemia Hypertension Surgical History S/P wrist surgery R WRIST REPAIR OF TORN TENDON Hx of vasectomy History of colonoscopy History of esophagogastroduodenoscopy (EGD) History of appendectomy History of tooth extraction WISDOM TEETH History of tonsillectomy S/P LASIK surgery of both eyes History of lumbar spinal fusion Family History Father Alcohol abuse COPD (chronic obstructive pulmonary disease) Hypertension Reported family history of early sudden deaths Mother Hypertension Hyperlipidemia Brother Hypertension Sister Graves' disease Social History Smoking Status: Current every day smoker Tobacco Type: Cigarettes Cigarettes Per Day: 1 ppd; Second Hand Exposure: No; Do You Dip or Chew Tobacco: No; Hx Alcohol Use: No Hx Substance Use: Yes Substance Use Type Other:: medical card very occasional Preferred Language: Slovenian Communication Ability: Effective Visual Impairment: Limited Hearing Ability: Normal Home Health Care Physician Required: No Beliefs That Will Affect Care: None marital status: Current Living Situation: Significant Other Current Living Situation Comment: LIVES WITH GIRLFRIEND current occupational status: employed current occupation: [employer] Feels Safe at Home: Yes Childhood Exposure to Second-Hand Smoke: No caffeine: Yes Dental Care, Regularly: Yes Physical Activity Frequency: Does not Exercise Seatbelt Use: always Sunscreen Use: No Assistive Devices: Glasses Review of Systems Review of Systems: As per above Physical Exam Constitutional: WD/WN, vitals as above Eyes: + anicteric sclerae; no conjunctival abn ormality ENMT: Ears: no external ear abnormality Nose: no external nose abnormality moist mucous membranes Respiratory: normal respiratory effort, lungs clear to auscultation Cardiovascular: Rate/Rhythm: regular rate and regular rhythm No lower extremity edema Gastrointestinal (Abdomen): Inspection/Auscultation: abdomen normal to inspection; abdomen not distended Percussion/Palpation: abdomen soft; abdomen nontender Skin: no rashes, warm and dry no jaundice Psychiatric: Orientation: alert and oriented x 3 Affect: + flat affect Results & Data Results & Data Vital Signs (Past 12 Hours) Vital Signs Temp Pulse Pulse Resp BP BP Pulse Ox 08/12/23 00:46 112 H 08/12/23 00:39 111 H 18 123/88 97 08/11/23 22:49 36.6 C 120 H 20 121/96 93 O2 Del Method 08/12/23 00:46 08/12/23 00:39 Room Air 08/11/23 22:49 Supervising Physician Co-Signing Physician Notes Attending addendum: I have physically seen this patient, have supervised the medical residents activities, and agree with the H&P unless as otherwise noted. Assessment and Plan: Alcohol use disorder- The patient will be admitted to telemetry for serial cardiac enzymes, serial EKG's, cardiac rhythm monitoring and a 2-D echocardiogram with Dopplers. Admits to 1 pint of vodka daily with last drink 6 PM on 08/10 Naltrexone Denies history of alcohol withdrawal seizures Has been to rehab in the past [facility] protocol adjustment disorder with depressed mood- Continue Lexapro Consult to psychiatry Abnormal LFTs- AST 238, ALT 176, alkaline phosphatase 224, INR 1.0 and total bilirubin 2.2 Calculated MELD score 15, MELD sodium score [address] scan abdomen pelvis without contrast Acute kidney injury/hypokalemia- Creatinine 1.77, with baseline 1.14 Potassium 3.1, magnesium 1.8 Status post 1 L normal saline and banana bag in the ED Continue IV fluids with potassium supplementation orally Serial laboratories in a.m. Remaining orders and notations as noted Resident Activity Tracking Resident Involvement: Resident Care Provided Care Provided: Adult Hospital Medicine"
[2023-08-12] MEDS: MULTI-VITAMIN INFUSION 10 ML, THIAMINE HCL 100 MG, FOLIC ACID 1 MG in SODIUM CHLORIDE 0... IV ONE (01:21)
[2023-08-12] MEDS: POTASSIUM CHLORIDE / WTR 10 MEQ/100 ML PLCT IV ONE (01:29)
[2023-08-12 01:37] LABS: T4 Free Thyroxine 0.83 ng/dl (0.61-1.60)
[2023-08-12 02:25] LABS: Prothrombin Time 10.9 Seconds (9.0-12.0)
[2023-08-12] MEDS ORDERED: NICOTINE POLACRILEX 2 MG GUM MT PRN (03:21)
[2023-08-12] MEDS ORDERED: Ativan IV Alcohol Withdrawal--Active Protocol IV PRN (03:57)
[2023-08-12] MEDS ORDERED: ONDANSETRON INJ 2 MG/ML 2 ML VIAL IV PRN (03:57)
[2023-08-12 06:39] LABS: Albumin Globulin Ratio 1.4 (0.9-2); Albumin Level 3.8 gm/dl (3.4-5.0); BUN Creatinine Ratio 20.7 (10-20); Bilirubin,Total 2.4 mg/dl (0.2-1.0); Calcium 8.9 mg/dl (8.6-10.3); Est GFR (African American) 50.4 ml/min; Est GFR (Non-African American) 43.5 ml/min; Globulin 2.8 gm/dl (2.5-4.0); Potassium 3.1 mmol/L (3.5-5.1); Total Protein 6.6 gm/dl (6.0-8.3)
[2023-08-12 06:52] LABS: Basophils # (auto) 0.01 K/uL (0.00-0.20); Basophils % (auto) 0.1 %; Eosinophils # (auto) 0.02 K/uL (0.00-0.50); Eosinophils % (auto) 0.3 %; Hematocrit (blood only) 31.7 % (42.0-52.0); Hemoglobin 10.8 g/dl (14.0-18.0); Immature Granulocytes # (auto) 0.04 K/uL (0.01-0.20); Immature Granulocytes % (auto) 0.6 %; Mean Corpuscular Hemoglobin 34.6 pg (25.0-34.0); Mean Corpuscular Hgb Conc 34.1 g/dL (32.0-36.0); Mean Corpuscular Volume 101.6 fL (80.0-100.0); Mean Platelet Volume 11.6 fL (9.4-12.4); Monocytes # (auto) 0.63 K/uL (0.11-0.59); Monocytes % (auto) 8.7 %; Neutrophils # (auto) 5.22 K/uL (1.40-6.50); Neutrophils % (auto) 72.3 %; Nucleated RBC # (auto) 0.06 K/uL (0.00-0.12); Nucleated RBC % (auto) 0.8 %; Platelet Count 104 K/uL (130-400); RDW Standard Deviation 63.4 fL (36.4-46.3); Red Blood Count 3.12 M/uL (4.70-6.10); White Blood Count 7.22 K/ul (4.8-10.8)
--- NOTE | 2023-08-12 07:17 | CT Scan Report ---
CT head/brain wo con CLINICAL HISTORY: 58 years-old Male with head strike seizure. Acute head injury status post fall TECHNIQUE: Multiple axial CT images of the head were obtained without contrast. A dose lowering tech nique was utilized adhering to the principles of ALARA. CT DOSE: 2289.01 mGy.cm COMPARISON: 09/18/2014. FINDINGS: No acute intracranial hemorrhage, midline shift, intracranial mass, hydrocephalus, territorial ischem ia or abnormal extra-axial collection. Progressive involutional changes. The calvarium is intact. Small left superior forehead frontal scalp contusion. The paranasal sinuses, mastoid air cells, and middle ear cavities are clear. IMPRESSION: 1. No acute intracranial abnormality or calvarial fracture. 2. Small left frontal scalp contusion. ACT 112: Negative or not required by law. The above report was generated using voice recognition software. It may contain grammatical, syntax o r spelling errors. Electronically signed by: Sumit Richey M.D. 08/12/2023 7:14 AM
--- NOTE | 2023-08-12 07:19 | CT Scan Report ---
CT cervical spine wo con CLINICAL HISTORY: 58 years-old Male with direct fall to face toilet with siezure. Acute neck pain st atus post fall COMPARISON: Head CT of same day TECHNIQUE: Multiple axial CT images of the cervical spine were obtained without contrast. A dose low ering technique was utilized adhering to the principles of ALARA. FINDINGS: Grade 1 anterolisthesis C3 on C4, likely secondary to chronic severe facet arthrosis. Multi level intervertebral disc space narrowing includes moderate to severe disc space narrowing at C3-C4, C5-C6 and C6-C7 with moderate to severe multilevel facet arthrosis and moderate spondylitic spurring. Multilevel neural foraminal narrowing is suboptimally evaluated by CT technique. There is at least m ild central canal stenosis at C6/C7 secondary to a large posterior disc osteophyte complex. Straighte agustina of the normal cervical lordosis. The cervical soft tissues appear unremarkable. The visualized lung apices appear clear. IMPRESSION: No acute cervical spine fracture or subluxation. ACT 112: Negative or not required by law. The above report was generated using voice recognition software. It may contain grammatical, syntax o r spelling errors. Electronically signed by: Sumit Richey M.D. 08/12/2023 7:18 AM
[2023-08-12] MEDS: LORazepam 2 MG/1 ML VIAL ONE (07:23)
--- NOTE | 2023-08-12 07:42 | CT Scan Report ---
ABDOMEN AND PELVIS CT WITHOUT CONTRAST HISTORY: Acute generalized abdominal pain status post fall cirrhotic eval for ascities other abd pat hology TECHNIQUE: Multiaxial CT images of the abdomen and pelvis were performed without contrast. A dose lo wering technique was utilized adhering to the principles of ALARA. COMPARISON STUDY: 09/11/2013 FINDINGS: Cardiomegaly with coronary arterial calcifications. Decreased attenuation of the cardiac bl ood pool suggestive of anemia. Mild bibasilar groundglass densities favor atelectasis. There is no fr ee air. Unremarkable spleen, pancreas and adrenal glands. Hyperattenuation of the gallbladder may rep resent biliary sludge. Hepatic steatosis with hepatomegaly. There is equivocal marginal nodularity of the liver. No hepatic mass identified. Nonspecific bilateral perinephric inflammatory stranding. No renal or ureteral calculi or hydronephro sis. Decompressed urinary bladder with wall thickening. Prostatomegaly. Fat filled inguinal hernias a re noted, left greater than right. Atherosclerosis of aorta without aneurysm. No lymphadenopathy. No bowel obstruction. Scattered air-fluid levels are noted throughout the large and small bowel. Fertile jayden diverticulosis. There is wall thickening within the large bowel are noted, with pronounced in the ascending and transverse portions. No CT evidence of acute appendicitis. Unremarkable soft tissues. No acute fracture identified. Posterior interbody rods and screw fusion with discectomy at L5-S1. The re are chronic L5 pars defects with grade 1 anterolisthesis L5 on S1. IMPRESSION: 1. No acute posttraumatic intra-abdominal or intrapelvic abnormality identified. 2. Hepatic steatosis with possible early cirrhosis. 3. Mild wall thickening of the ascending and transverse colon is likely secondary to partial distenti on. A nonspecific colitis considered less likely. 4. Additional findings as above. ACT 112: Negative or not required by law. The above report was generated using voice recognition software. It may contain grammatical, syntax o r spelling errors. Electronically signed by: Sumit Richey M.D. 08/12/2023 7:40 AM
--- NOTE | 2023-08-12 07:48 | Emergency Department Note ---
Impression & Plan Alcohol withdrawal, Acute alcoholic hepatitis, Acute dehydration, Hypokalemia, Acute kidney injury, Thrombocytopenia Admit to the [facility] ED Provider Note NAME: SACHIN MCCALL AGE: 58 SEX: Male INFORMANT: Patient ED PROVIDER(S): Tanesha Aaron DO CHIEF COMPLAINT: Mental health evaluation PLAN: Disposition: Admit to the [facility] for medical clearance and then further evaluation by psychiatry on 302 MEDICAL DECISION MAKING: This is a 58-year-old male patient with a history of alcohol abuse who presents to the emergency department on a 302 warrant. Family was concerned that the patient is not caring for himself by not eating or drinking and only consuming alcohol. Over the past couple of weeks, it was described that he was only leaving the house to get alcohol. On my evaluation of the patient, he is quite unkempt. He seemed lethargic and slightly confused. He appears significantly dehydrated and tachycardic. Laboratory studies revealed no leukocytosis. H/H were stable. However the patient is noted to be thrombocytopenic. Coagulation studies were normal. LFTs are consistent with an alcoholic hepatitis with total bilirubin at 2.2, AST at 238, ALT at 176 and alk phos at 224. The patient was hypokalemic with a potassium of 3.1. The patient was given a K rider. He had evidence of acute kidney injury with a BUN of 36 and a creatinine of 1.77 along with his physical exam findings consistent with acute dehydration. Patient was bolused with IV normal saline solution. The patient could not be medically cleared here in the emergency department for mental health evaluation(302.) He also remained lethargic and confused at times and could not participate in a psychiatric evaluation. The patient was tremulous on exam and appeared to have been withdrawing from alcohol as his level was 0. The patient was given a banana bag and the case was discussed with the [facility]ist. Care/management discussed with: ED psychiatric piano case maker, [facility] Triage Nursing notes: Reviewed and agree with them. Vital Signs: reviewed and remarkable for hypertension and tachycardia Chronic Medical/Social Conditions affecting care: Alcohol use-the patient told me that up until approximately 3 weeks ago that he had been attending [facility] outpatient drug and alcohol therapy 3 times a week and was not drinking alcohol at that time. Differential Diagnosis: Alcohol intoxication, alcohol withdrawal, alcoholic hepatitis, dehydration, hypokalemia, hypomagnesemia, hypoglycemia Diagnostics, independently interpreted by me: ECG: Sinus tachycardia at a rate of [address] segment elevation or signs of ischemia. There is no ectopy. QTc was 457 ms. Cardiac Monitoring: Sinus tachycardia at 109 HPI: 58 year old Male arrives for evaluation of mental health eval. Patient's family petitioned a 302 stating the patient was unable to care for himself as he is not getting up and leaving the house other than to go by alcohol. The patient explains to me that he likes to drink alcohol and that is what he is chosen to do over the past 3 weeks. He denies any suicidal or homicidal thoughts. He does state that he had been going to [facility] drug and alcohol outpatient therapy routinely 3 times a week up until that point and had been sober. PAST MEDICAL HISTORY: See Below, PAST SURGICAL HISTORY: See Below, SOCIAL HISTORY: See Below, HOME MEDICATIONS: See list ALLERGIES: See list VITALS: See Below PHYSICAL EXAMINATION: HEENT: Head - normocephalic and atraumatic Pupils are equal, round, and reactive to light. Extraocular eye muscles are intact, and sclera are anicteric. Nose -dry nasal mucosa without discharge. Mouth -dry buccal mucosa. Oropharynx is nonerythematous and there is no tonsillar exudate or edema noted. Neck: Supple; no cervical lymphadenopathy Heart: Tachycardic rate and regular rhythm. There is a normal S1 and S2 with no murmurs, clicks, or gallops appreciated. Lungs: Clear to auscultation bilaterally with no wheezes, rales, or rhonchi. Abdomen: Soft, completely nontender, nondistended, with good bowel sounds. There are no palpable pulsatile masses or hepatosplenomegaly. There is no guarding, rigidity, or rebound noted. Extremities: No evidence of cyanosis, clubbing, or edema. There are easily palpable peripheral pulses. Skin: warm and dry with poor turgor and no rashes. Emergency department treatment: clinical research monitor, IV normal saline bolus, IV K rider, IV banana bag Emergency department course: The patient was evaluated in room A-6. A complete history and physical was performed. An IV lock was initiated and labs were drawn as above. An order was placed for continuous cardiac monitoring. Patient was in a sinus tachycardia at a rate of 109. A twelve-lead EKG was obtained. The patient was bolused with a liter of normal saline solution. He was then switched to an IV banana bag and started on an IV K rider. I discussed the case with the [facility] Hospitalist and they will evaluate for further inpatient care. Past Med/Surg History Medical History (Updated 08/12/23 @ 07:48 by Tanesha Aaron DO) Prediabetes Presumed- Hgb A1C 6.3 on 10/12/22 Coronary artery calcification seen on CAT scan chest CT 03/2020 negative stress test 06/2021 Alcohol abuse Adjustment disorder with depressed mood Allergic rhinitis Anxiety Barretts esophagus Chronic cough Hiatal hernia Obstructive sleep apnea no device Periodic limb movements of sleep Small airways disease prn inhaler for this > rare res inh use Hypothyroidism GERD (gastroesophageal reflux disease) Hyperlipidemia Hypertension Surgical History S/P wrist surgery R WRIST REPAIR OF TORN TENDON Hx of vasectomy History of colonoscopy History of esophagogastroduodenoscopy (EGD) History of appendectomy History of tooth extraction WISDOM TEETH History of tonsillectomy S/P LASIK surgery of both eyes History of lumbar spinal fusion Family History Father Alcohol abuse COPD (chronic obstructive pulmonary disease) Hypertension Reported family history of early sudden deaths Mother Hypertension Hyperlipidemia Brother Hypertension Sister Graves' disease Social History Smoking Status: Current every day smoker Tobacco Type: Cigarettes Cigarettes Per Day: 1 ppd; Second Hand Exposure: No; Do You Dip or Chew Tobacco: No; Hx Alcohol Use: No Hx Substance Use: Yes Substance Use Type Other:: medical card very occasional Preferred Language: Ukrainian Communication Ability: Effective Visual Impairment: Limited Hearing Ability: Normal Bag Builder Required: No Beliefs That Will Affect Care: None marital status: Current Living Situation: Significant Other Current Living Situation Comment: LIVES WITH GIRLFRIEND current occupational status: employed current occupation: [employer] Feels Safe at Home: Yes Childhood Exposure to Second-Hand Smoke: No caffeine: Yes Dental Care, Regularly: Yes Physical Activity Frequency: Does not Exercise Seatbelt Use: always Sunscreen Use: No Assistive Devices: Glasses Allergies Allergies Allergy/AdvReac Type Severity Reaction Status Date / Time Sulfa (Sulfonamide Allergy Mild HIVES Verified 08/12/23 02:12 Antibiotics) MARGARET Inhibitors Allergy Unknown COUGH Verified 08/12/23 02:12 amlodipine Allergy Unknown FATIGUE Verified 08/12/23 02:12 clonidine Allergy Unknown HEADACHES Verified 08/12/23 02:12 varenicline [From Chantix] Allergy Unknown Unknown Verified 08/12/23 02:12 Home Meds Home Medications Medication Instructions Recorded Confirmed ezetimibe 10 mg tablet 10 mg PO HS 07/29/21 08/12/23 multivitamin 1 tab PO QAM 11/10/22 08/12/23 tadalafil 5 mg tablet 5 mg PO DAILY PRN Erectile 11/10/22 08/12/23 Dysfunction valsartan 320 1 tab PO QAM 11/10/22 08/12/23 mg-hydrochlorothiazide 12.5 mg tablet Previous Rx's Medication Instructions Recorded atorvastatin 40 mg tablet 40 mg PO QPM #90 tabs 09/01/22 omeprazole 40 mg capsule,delayed 40 mg PO QPM #90 caps 09/01/22 release levothyroxine 125 mcg tablet 125 mcg PO QAM #90 tabs 12/27/22 valacyclovir 1 gram tablet 1,000 mg PO TID #21 tabs 05/31/23 (Valtrex) escitalopram oxalate 20 mg tablet 20 mg PO QPM #90 tabs 06/09/23 disulfiram 250 mg tablet See Rx Instructions .Route 06/28/23 .COMPLEX #60 tabs albuterol sulfate 90 mcg/actuation See Rx Instructions .Route 06/30/23 aerosol inhaler .COMPLEX #18 ea Results & Data (ED) Vital Signs Vital Signs - 24 hr 08/11/23 22:49 08/12/23 00:39 08/12/23 00:46 Temperature 36.6 C Temperature Source Oral Pulse Rate 120 H 112 H Pulse Rate [Finger] 111 H Respiratory Rate 20 18 Blood Pressure 121/96 Blood Pressure [Right Arm] 123/88 Blood Pressure Mean 104 Blood Pressure Mean [Right Arm] 99 Blood Pressure Position [Right Arm] Pulse Oximetry 93 97 Oxygen Delivery Method Room Air Sepsis Recent Fever Within 48 Hours No Sepsis New/Unexplained Change in Mental Status N/A Sepsis Action Taken by Nursing No Action Required 08/12/23 01:55 Temperature 36.8 C Temperature Source Oral Pulse Rate Pulse Rate [Finger] 93 H Respiratory Rate 24 Blood Pressure Blood Pressure [Right Arm] 130/89 Blood Pressure Mean Blood Pressure Mean [Right Arm] 102 Blood Pressure Position [Right Arm] Lying Pulse Oximetry 98 Oxygen Delivery Method Room Air Sepsis Recent Fever Within 48 Hours Sepsis New/Unexplained Change in Mental Status Sepsis Action Taken by Nursing Laboratory Data 08/12/23 06:03 08/12/23 06:03 Lab Results 08/11/23 Range/Units 22:55 WBC 6.99 (4.8-10.8) K/ul RBC 3.85 L (4.70-6.10) M/uL Hgb 13.2 L (14.0-18.0) g/dl Hct 38.2 L (42.0-52.0) % MCV 99.2 (80.0-100.0) fL MCH 34.3 H (25.0-34.0) pg MCHC 34.6 (32.0-36.0) g/dL RDW Std Deviation 60.3 H (36.4-46.3) fL RDW Coeff of Joshua 16.6 H (11.5-14.5) % Plt Count 125 L (130-400) K/uL MPV 11.5 (9.4-12.4) fL Immature Gran % (Auto) 1.0 % Neut % (Auto) 83.2 % Lymph % (Auto) 6.4 % [place] % (Auto) 9.3 % Eos % (Auto) 0.0 % Baso % (Auto) 0.1 % Neut # (Auto) 5.81 (1.40-6.50) K/uL Lymph # (Auto) 0.45 L (1.20-3.40) K/uL [place] # (Auto) 0.65 H (0.11-0.59) K/uL Eos # (Auto) 0.00 (0.00-0.50) K/uL Baso # (Auto) 0.01 (0.00-0.20) K/uL Immature Gran # (Auto) 0.07 (0.01-0.20) K/uL Absolute Nucleated RBC 0.07 (0.00-0.12) K/uL Nucleated RBC % (auto) 1.0 % PT 10.9 (9.0-12.0) Seconds INR 1.0 (0.9-1.1) Sodium 136 (136-145) mmol/L Potassium 3.1 L (3.5-5.1) mmol/L Chloride 93 L (98-107) mmol/L Carbon Dioxide 23 (21-32) mmol/L Anion Gap 20 H (3-11) BUN 36 H (6-23) mg/dl Creatinine 1.77 H (0.6-1.4) mg/dl Est Cr Clr Drug Dosing 42.0 ml/min Est GFR ( Amer) 47.7 ml/min Est GFR (Non-Af Amer) 41.1 ml/min BUN/Creatinine Ratio 20.3 H (10-20) Glucose 150 H (70-99(Fasting)) mg/dl Calcium 10.3 (8.6-10.3) mg/dl Magnesium 1.8 (1.7-2.4) mg/dl Total Bilirubin 2.2 H (0.2-1.0) mg/dl AST 238 H (13-39) U/L ALT 176 H (7-52) U/L Alkaline Phosphatase 224 H (34-104) U/L Total Protein 8.0 (6.0-8.3) gm/dl Albumin 4.6 (3.4-5.0) gm/dl Globulin 3.4 (2.5-4.0) gm/dl Albumin/Globulin Ratio 1.4 (0.9-2) TSH 25.498 H (0.300-4.500) uIu/ml Free T4 0.83 (0.61-1.60) ng/dl Salicylates < 3.0 L (3.0-30) mg/dl Acetaminophen < 3 L (10-30) ug/ml Ethyl Alcohol mg/dL < 10.0 (<10.0) mg/dl SARS-CoV-2 (PCR) NEGATIVE (Negative) Influenza Type A (PCR) Negative (Neg) Influenza Type B (PCR) Negative (Neg) RSV (RT-PCR) Negative (Neg) SARS-CoV-2, RNA, NAAT Cancelled Administered Medications Discontinued Medications Sodium Chloride (Nss) 1,000 mls @ 999 mls/hr IV .Q1H1M ONE Stop: 08/12/23 01:50 Last Infusion: 08/12/23 02:10 Dose: Infused Documented By: Admin: 08/12/23 01:05 Dose: 999 mls/hr Documented By: BOBO Multivitamins 10 ml/ Thiamine HCl 100 mg/ Folic Acid 1 mg/Sodium Chloride 1,011.2 mls @ 500 mls/hr IV .Q2H2M ONE Stop: 08/12/23 02:51 Last Infusion: 08/12/23 03:34 Dose: Infused Documented By: Admin: 08/12/23 01:21 Dose: 500 mls/hr Documented By: BOBO Potassium Chloride (K Felice / Wtr) 10 meq in 100 mls @ 100 mls/hr IV ONE ONE Stop: 08/12/23 02:17 Last Infusion: 08/12/23 02:35 Dose: Infused Documented By: Admin: 08/12/23 01:29 Dose: 100 mls/hr Documented By: BOBO Lorazepam (Lorazepam 2 Mg/1 Ml Vial) Confirm Administered Dose 2 mg .ROUTE .STK- MED ONE Stop: 08/12/23 05:57 Last Admin: 08/12/23 07:23 Dose: Not Given Documented By: ASM Discharge Plan Visit Data Chief Complaint: Mental Health Evaluation Stated Complaint: 302 ED Provider: Tanesha Aaron Discharge Problem: Alcohol withdrawal, Acute alcoholic hepatitis, Acute dehydration, Hypokalemia, Acute kidney injury, Thrombocytopenia Patient Disposition: Admitted As Inpatient Discharge Instructions Interventions: ED Discharge Assessment Last Done: 08/12/23 03:35
[2023-08-12] MEDS: LEVOTHYROXINE SODIUM 125 MCG TABLET PO SCH (08:11)
[2023-08-12] MEDS: hydroCHLOROthiazide 25 MG TAB PO SCH (08:12)
[2023-08-12] MEDS: FOLIC ACID 1 MG TAB PO SCH (08:12)
[2023-08-12] MEDS: THIAMINE HCL 100 MG TAB PO SCH (08:13)
[2023-08-12] MEDS: VALSARTAN 80 MG TAB PO SCH (08:13)
[2023-08-12] MEDS: POTASSIUM CHLORIDE CRTAB 20 MEQ TABCR PO STA (08:16)
[2023-08-12] MEDS ORDERED: GABAPENTIN 1200MG ALCOHOL WITHDRAWAL LOAD PO STA (08:31)
--- NOTE | 2023-08-12 08:38 | Electrocardiogram Report ---
Test Reason : Blood Pressure : / mmHG Vent. Rate : 126 BPM Atrial Rate : 126 BPM P-R Int : 136 ms QRS Dur : 086 ms QT Int : 316 ms P-R-T Axes : 055 048 072 degrees QTc Int : 457 ms Sinus tachycardia Diffuse Minor Nonspecific ST abnormality Abnormal ECG When compared with ECG of 11-NOV-2022 09:23, Vent. rate has increased BY 58 BPM Non-specific change in ST segment in Lateral leads Confirmed by Rocco Trammell ([id number]) on 08/12/2023 8:38:10 AM Referred By: REFERRED SELF Confirmed By:Rocco Trammell
[2023-08-12] MEDS: THIAMINE HCL 500 MG in SODIUM CHLORIDE 0.9% 50 ML IV SCH (09:02)
[2023-08-12] MEDS: GABAPENTIN 600 MG TAB PO ONE (09:03)
--- NOTE | 2023-08-12 09:41 | Hospitalist Progress Note ---
Date of Service August 12, 2023 Assessment & Plan (1) Alcohol withdrawal: Plan: -Patient states he drinks 1 pint of vodka daily, last drink at 6pm on 08/10. -Reports witnessed (by girlfriend) ?seizure a few days prior to admission - Etoh level on admission <10 -Has been on naltrexone, disulfiram in the past but has not taken in some time. Has previously been to [facility]/rehab. Was going to therapy at [facility] but stopped in the last month, without a reason -AWSS protocol ordered - Ativan speck dyer of 08/11 - patient with witnessed seizure, fell off toilet and hit head/face - CT Head/C-spine/Abd without acute findings Gabapentin AWSS protocol added Continue folic Acid Thiamine increased to 500 mg IV TID x 6 doses Psych consult - patient currently on 302 from arrival (2) Adjustment disorder with depressed mood: Plan: last seen by PCP for this 01/2023 - documented not controlled, increased lexapro to 20mg - denies suicidial thoughts - Psychiatry following (3) Thrombocytopenia: Plan: Platelets 125 on arrival Decreased to 104 with AM abs Suspect in the setting of increasing LFTs/ETOh abuse AM CBC (4) Acute kidney injury: Plan: -Cr at 1.77 on admission, baseline from prior labs appears to be ~1.1 -Given 1L bolus in ED -am Cr 1.69, will hydrated with IV fluids overnight Hold HCTZ AM BMP (5) Elevated LFTs: Plan: -MELD score calculated: 17 on admission -AST, ALT, alk phos and bili elevated from prior tests, likely secondary to ongoing alcohol consumption - hepatic steatosis with possible early cirrhosis seen on CT A/P (6) Hypokalemia: Plan: -Potassium of 3.1 on arrival, 10meq IV replacement ordered in ED AM labs: K 3.1 --> 40meq PO given recheck AM BMP (7) Hypothyroidism: Plan: -TSH on admission elevated to 25 -Unsure if patient has been taking medication as prescribed, may need to repeat as outpatient and adjust home dosage -Continue levothyroxine (8) Hyperlipidemia: Plan: Continue Atorvastatin, Ezetimibe (9) Hypertension: Plan: Valsartan, HCTZ on hold with EARLINE Plan Dispo: continued inpatient stay DVT Proh: SCDs, (hold on heparin given thrombocytopenia, and lovenox given EARLINE) Admission and Anticipated Discharge Date Admission Date: August 12, 2023 Supervising Physician Co-Signing Physician Notes Attending Attestation - Chart reviewed in detail, care plan d/w HAMZAH Craven. I agree with the mccauley components of her documentation. Yoel Ellis MD Subjective Patient resting in bed. Reports that he stopped going to therapy without a reason. takes medications at home ocassionaly. Would consider inpatient treatment Denies suicidal thoughts or thoughts of self harm. Does report having a seizure at home a few days ago, witnessed by girlfriend, states that was his first one. Maintains appetite. Denies pain currently. Tele Sinus Tachycardia 100s Review of Systems Review of Systems: All systems reviewed & are unremarkable except as noted in Subjective Physical Exam Physical Exam: General: NAD, VS as above Resp: normal respiratory effort, lungs clear to auscultation CV: tachycardic, no murmur, Abd: normal bowel sounds, non tender, no hepatosplenomegaly Extremities: Moves all extremities, no edema Neuro: A&O x3, Results & Data Results & Data Vital Signs (Past 12 Hours) Vital Signs Temp Pulse Pulse Resp BP BP BP 08/12/23 08:01 36.9 C 90 20 153/107 H 08/12/23 03:57 37.2 C 107 H 18 142/96 H 08/12/23 03:51 98 H 08/12/23 03:35 94 H 24 132/89 08/12/23 03:23 36.7 C 97 H 20 153/90 H 08/12/23 03:10 36.8 C 102 H 27 H 153/90 H 08/12/23 01:55 36.8 C 93 H 24 130/89 08/12/23 00:46 112 H 08/12/23 00:39 111 H 18 123/88 08/11/23 22:49 36.6 C 120 H 20 121/96 Pulse Ox O2 Del Method 08/12/23 08:01 95 Room Air 08/12/23 03:57 95 Room Air 08/12/23 03:51 08/12/23 03:35 97 Room Air 08/12/23 03:23 98 Room Air 08/12/23 03:10 95 Room Air 08/12/23 01:55 98 Room Air 08/12/23 00:46 08/12/23 00:39 97 Room Air 08/11/23 22:49 93 Laboratory Results CBC, chemistry, thyroid studies reviewed Diagnostic Findings CT head, C-spine, abdomen pelvis reviewed PG Care Time/CCT Total # of Minutes Spent Total Time Spent with Patient: Total time spent is greater than 50% in coordination of care (as documented) at patient's floor/unit and/or counseling patient: Coding Level of Care Code 18417 SUB INP/OBS CARE 3/50MIN Diagnoses Alcohol withdrawal F10.939 Adjustment disorder with depressed mood F43.21 Thrombocytopenia D69.6 Acute kidney injury N17.9 Elevated LFTs R79.89 Hypokalemia E87.6 Hypothyroidism E03.9 Hyperlipidemia E78.5 Hypertension I10
[2023-08-12] MEDS: LORazepam 1 MG in SYRINGE 0.5 ML IV PRN (10:17)
--- NOTE | 2023-08-12 13:18 | Psychiatric Consultation ---
Date of Consultation August 12, 2023 Impression / Recommendations Impression 58 yo male with little formal psych hx, hx of rx of antabuse for ETOH recovery and relapse after period of non compliance. Unclear when last appointment occurred at [facility]. (1) Alcohol withdrawal: Plan This is a limited consult as patient remains unable to be assessed to complete or decline 302. Based on history so far, alcohol seems primary and explained to significant other that he is unlikely to meet criteria for involuntary commitment under [place] mental health law. so far he has been cooperative as able with medical care and has not been attempting to leave the hospital. He is currently unable to leave AMA with the active [address] CPT Code Overall, I spent a total of 58 minutes with this case, including review of chart, communication with girlfriend, coordination with nursing, and documentation. Psych History Identifying Data 58 yo male from [place] brought to ED on 302 warrant (crisis/[employer] the petitioner). Admit medically for ETOH detox. Chief Complaint unable to be assessed History of Present Illness as per petitioning statement/box A warrant: Mental health decline leading to alc oholism and inability to care. Not taking care of animals, currently incontinent, not eating, not practicing hygiene, and refuses help from family/professionals. Family fears that he may . He takes a bit of food every 4-5 days. Only leaves home to purchase alcohol and is usually drunk when doing so. If he is not drinking, he is sleeping." Girlfriend (emergency contact) is at bedside and denied a mental health history other than nonspecific dep/anxiety for which he has been prescribed Lexapro. Surescripts indicates he has been filling Antabuse but she reports he hasn't taken it for some time and relapsed significantly in past month. He has not made any recent suicidal statements or gestures per chart notes and girlfriend though she did question him 2 weeks ago about him holding on to a bottle of medication and he made a passive suicidal statement that she didn't take seriously at the time as he was intoxicated. The patient has not been consistently able to be examined/provide history due to his medical state and is now sleeping/post ictal after having a witnessed seizure and falling forward off the toilet. Allergies Allergy/AdvReac Type Severity Reaction Status Date / Time Sulfa (Sulfonamide Allergy Mild HIVES Verified 08/12/23 02:12 Antibiotics) MARGARET Inhibitors Allergy Unknown COUGH Verified 08/12/23 02:12 amlodipine Allergy Unknown FATIGUE Verified 08/12/23 02:12 clonidine Allergy Unknown HEADACHES Verified 08/12/23 02:12 varenicline [From Chantix] Allergy Unknown Unknown Verified 08/12/23 02:12 Home Medications Medication Instructions Recorded Confirmed Type ezetimibe 10 mg tablet 10 mg PO HS 07/29/21 08/12/23 History atorvastatin 40 mg tablet 40 mg PO QPM #90 tabs 09/01/22 08/12/23 Rx omeprazole 40 mg capsule,delayed 40 mg PO QPM #90 caps 09/01/22 08/12/23 Rx release multivitamin 1 tab PO QAM 11/10/22 08/12/23 History tadalafil 5 mg tablet 5 mg PO DAILY PRN Erectile 11/10/22 08/12/23 History Dysfunction valsartan 320 1 tab PO QAM 11/10/22 08/12/23 History mg-hydrochlorothiazide 12.5 mg tablet levothyroxine 125 mcg tablet 125 mcg PO QAM #90 tabs 12/27/22 08/12/23 Rx valacyclovir 1 gram tablet 1,000 mg PO TID #21 tabs 05/31/23 08/12/23 Rx (Valtrex) escitalopram oxalate 20 mg tablet 20 mg PO QPM #90 tabs 06/09/23 08/12/23 Rx disulfiram 250 mg tablet See Rx Instructions .Route 06/28/23 08/12/23 Rx .COMPLEX #60 tabs albuterol sulfate 90 mcg/actuation See Rx Instructions .Route 06/30/23 08/12/23 Rx aerosol inhaler .COMPLEX #18 ea Patient History Medical History Prediabetes Presumed- Hgb A1C 6.3 on 10/12/22 Coronary artery calcification seen on CAT scan chest CT 03/2020 negative stress test 06/2021 Alcohol abuse Adjustment disorder with depressed mood Allergic rhinitis Anxiety Barretts esophagus Chronic cough Hiatal hernia Obstructive sleep apnea no device Periodic limb movements of sleep Small airways disease prn inhaler for this > rare res inh use Hypothyroidism GERD (gastroesophageal reflux disease) Hyperlipidemia Hypertension Surgical History S/P wrist surgery R WRIST REPAIR OF TORN TENDON Hx of vasectomy History of colonoscopy History of esophagogastroduodenoscopy (EGD) History of appendectomy History of tooth extraction WISDOM TEETH History of tonsillectomy S/P LASIK surgery of both eyes History of lumbar spinal fusion Family History Father Alcohol abuse COPD (chronic obstructive pulmonary disease) Hypertension Reported family history of early sudden deaths Mother Hypertension Hyperlipidemia Brother Hypertension Sister Graves' disease Social History Smoking Status: Current every day smoker Tobacco Type: Cigarettes Cigarettes Per Day: 1 ppd; Second Hand Exposure: No; Do You Dip or Chew Tobacco: No; Hx Alcohol Use: No Hx Substance Use: Yes Substance Use Type Other:: medical card very occasional Preferred Language: Danish Communication Ability: Effective Visual Impairment: Limited Hearing Ability: Normal Manager Corporate Responsibility Required: No Beliefs That Will Affect Care: None marital status: Current Living Situation: Significant Other Current Living Situation Comment: LIVES WITH GIRLFRIEND current occupational status: employed current occupation: [employer] Feels Safe at Home: Yes Childhood Exposure to Second-Hand Smoke: No caffeine: Yes Dental Care, Regularly: Yes Physical Activity Frequency: Does not Exercise Seatbelt Use: always Sunscreen Use: No Assistive Devices: Glasses Physical Exam Psychiatric: unable to arouse meaningfully Vital Signs (Past 24 Hours): Last Vital Signs Temp 36.8 C 08/12/23 11:58 Pulse 93 H 08/12/23 11:58 Resp 22 08/12/23 11:58 BP 112/74 08/12/23 11:58 Pulse Ox 94 08/12/23 11:58 O2 Del Method Room Air 08/12/23 11:58 Review of Systems Unobtainable due to cognitive status Results & Data (PSY) Laboratory Results 08/12/23 08/11/23 Range/Units 06:03 22:55 WBC 7.22 6.99 (4.8-10.8) K/ul RBC 3.12 L 3.85 L (4.70-6.10) M/uL Hgb 10.8 L 13.2 L (14.0-18.0) g/dl Hct 31.7 L 38.2 L (42.0-52.0) % MCV 101.6 H 99.2 (80.0-100.0) fL MCH 34.6 H 34.3 H (25.0-34.0) pg MCHC 34.1 34.6 (32.0-36.0) g/dL RDW Std Deviation 63.4 H 60.3 H (36.4-46.3) fL RDW Coeff of Joshua 17.0 H 16.6 H (11.5-14.5) % Plt Count 104 L 125 L (130-400) K/uL MPV 11.6 11.5 (9.4-12.4) fL Immature Gran % (Auto) 0.6 1.0 % Neut % (Auto) 72.3 83.2 % Lymph % (Auto) 18.0 6.4 % [place] % (Auto) 8.7 9.3 % Eos % (Auto) 0.3 0.0 % Baso % (Auto) 0.1 0.1 % Neut # (Auto) 5.22 5.81 (1.40-6.50) K/uL Lymph # (Auto) 1.30 0.45 L (1.20-3.40) K/uL [place] # (Auto) 0.63 H 0.65 H (0.11-0.59) K/uL Eos # (Auto) 0.02 0.00 (0.00-0.50) K/uL Baso # (Auto) 0.01 0.01 (0.00-0.20) K/uL Immature Gran # (Auto) 0.04 0.07 (0.01-0.20) K/uL Absolute Nucleated RBC 0.06 0.07 (0.00-0.12) K/uL Nucleated RBC % (auto) 0.8 1.0 % PT 10.9 (9.0-12.0) Seconds INR 1.0 (0.9-1.1) Sodium 138 136 (136-145) mmol/L Potassium 3.1 L 3.1 L (3.5-5.1) mmol/L Chloride 99 93 L (98-107) mmol/L Carbon Dioxide 18 L 23 (21-32) mmol/L Anion Gap 21 H 20 H (3-11) BUN 35 H 36 H (6-23) mg/dl Creatinine 1.69 H 1.77 H (0.6-1.4) mg/dl Est Cr Clr Drug Dosing 44.0 42.0 ml/min Est GFR ( Amer) 50.4 47.7 ml/min Est GFR (Non-Af Amer) 43.5 41.1 ml/min BUN/Creatinine Ratio 20.7 H 20.3 H (10-20) Glucose 122 H 150 H (70-99(Fasting)) mg/dl Calcium 8.9 10.3 (8.6-10.3) mg/dl Magnesium 1.8 (1.7-2.4) mg/dl Total Bilirubin 2.4 H 2.2 H (0.2-1.0) mg/dl AST 449 H 238 H (13-39) U/L ALT 214 H 176 H (7-52) U/L Alkaline Phosphatase 197 H 224 H (34-104) U/L Total Protein 6.6 8.0 (6.0-8.3) gm/dl Albumin 3.8 4.6 (3.4-5.0) gm/dl Globulin 2.8 3.4 (2.5-4.0) gm/dl Albumin/Globulin Ratio 1.4 1.4 (0.9-2) TSH 25.498 H (0.300-4.500) uIu/ml Free T4 0.83 (0.61-1.60) ng/dl Salicylates < 3.0 L (3.0-30) mg/dl Acetaminophen < 3 L (10-30) ug/ml Ethyl Alcohol mg/dL < 10.0 (<10.0) mg/dl SARS-CoV-2 (PCR) NEGATIVE (Negative) Influenza Type A (PCR) Negative (Neg) Influenza Type B (PCR) Negative (Neg) RSV (RT-PCR) Negative (Neg) SARS-CoV-2, RNA, NAAT Cancelled Medications Administered Folic Acid (Folic Acid 1 Mg Tab) 1 mg PO [facility] Stop: 09/11/23 08:59 Last Admin: 08/12/23 08:12 Dose: 1 mg Documented By: DMB Hydrochlorothiazide (Hydrochlorothiazide 25 Mg Tab) 12.5 mg PO [facility] Stop: 09/11/23 08:59 Last Admin: 08/12/23 08:12 Dose: 12.5 mg Documented By: HEIDI Lorazepam 1 mg/ Syringe 1 mls @ 2 mls/min IV UD PRN; Protocol PRN Reason: EtOH Withdrawal AWSS Score 6,7 Stop: 09/11/23 03:56 Last Admin: 08/12/23 10:17 Dose: 2 mls/min Documented By: [place] Thiamine HCl 500 mg/ Sodium (Chloride) 55 mls @ 210 mls/hr IV Q8H [facility] Stop: 08/14/23 01:16 Last Infusion: 08/12/23 09:18 Dose: Infused Documented By: Admin: 08/12/23 09:02 Dose: 210 mls/hr Documented By: HEIDI Levothyroxine Sodium (Levothyroxine Sodium 125 Mcg Tablet) [facility] Stop: 09/11/23 06:29 Last Admin: 08/12/23 08:11 Dose: 125 mcg Documented By: HEIDI Thiamine HCl (Thiamine Hcl 100 Mg Tab) 100 mg PO [facility] Stop: 09/11/23 08:59 Last Admin: 08/12/23 08:13 Dose: 100 mg Documented By: HEIDI Valsartan (Valsartan 80 Mg Tab) [facility] Stop: 09/11/23 08:59 Last Admin: 08/12/23 08:13 Dose: 320 mg Documented By: HEIDI Coding Level of Care Code 53563 [facility] Intl Hosp Care Lvl 2 Diagnoses Alcohol withdrawal F10.939
[2023-08-12] MEDS: GABAPENTIN 600 MG TAB PO SCH (15:11)
--- NOTE | 2023-08-12 15:51 | Billing Data ---
Date of Service August 12, 2023 Coding Level of Care Code 09671 INT INP/OBS CARE
[2023-08-12] MEDS: LACTATED RINGER'S 1,000 ML IV SCH (16:30)
[2023-08-12] MEDS: ESCITALOPRAM OXALATE 20 MG TAB PO SCH (21:29)
[2023-08-12] MEDS: EZETIMIBE 10 MG TAB PO SCH (21:29)
[2023-08-12] MEDS: ATORVASTATIN 40 MG TAB PO SCH (21:29)
[2023-08-12] MEDS: PANTOprazole 40 MG TAB PO SCH (21:29)
[2023-08-13] MEDS: GABAPENTIN 600 MG TAB PO SCH (03:46)
[2023-08-13 08:25] LABS: Hematocrit (blood only) 28.2 % (42.0-52.0); Hemoglobin 9.3 g/dl (14.0-18.0); Mean Corpuscular Hemoglobin 33.5 pg (25.0-34.0); Mean Corpuscular Volume 101.4 fL (80.0-100.0); Mean Platelet Volume 11.4 fL (9.4-12.4); Nucleated RBC # (auto) 0.03 K/uL (0.00-0.12); Nucleated RBC % (auto) 0.5 %; Platelet Count 92 K/uL (130-400); RDW Coefficient of Variation 16.6 % (11.5-14.5); RDW Standard Deviation 61.3 fL (36.4-46.3); Red Blood Count 2.78 M/uL (4.70-6.10); White Blood Count 5.79 K/ul (4.8-10.8)
[2023-08-13 08:29] LABS: Albumin Globulin Ratio 1.3 (0.9-2); Albumin Level 3.5 gm/dl (3.4-5.0); BUN Creatinine Ratio 19.8 (10-20); Bilirubin,Total 2.1 mg/dl (0.2-1.0); Calcium 8.8 mg/dl (8.6-10.3); Creatinine Clr Calc Pharmacy 66.7 ml/min; Est GFR (African American) 75.5 ml/min; Est GFR (Non-African American) 65.1 ml/min; Globulin 2.6 gm/dl (2.5-4.0); Potassium 3.3 mmol/L (3.5-5.1); Total Protein 6.1 gm/dl (6.0-8.3)
[2023-08-13] MEDS: LORazepam 2 MG in SYRINGE 1 ML IV PRN (08:35)
[2023-08-13 09:03] LABS: Basophils # (auto) 0.02 K/uL (0.00-0.20); Basophils % (auto) 0.3 %; Eosinophils # (auto) 0.13 K/uL (0.00-0.50); Eosinophils % (auto) 2.2 %; Immature Granulocytes # (auto) 0.04 K/uL (0.01-0.20); Immature Granulocytes % (auto) 0.7 %; Lymphocytes # (auto) 0.99 K/uL (1.20-3.40); Lymphocytes % (auto) 17.1 %; Monocytes # (auto) 0.43 K/uL (0.11-0.59); Monocytes % (auto) 7.4 %; Neutrophils # (auto) 4.18 K/uL (1.40-6.50); Neutrophils % (auto) 72.3 %
[2023-08-13] MEDS: POTASSIUM CHLORIDE CRTAB 20 MEQ TABCR PO STA (10:22)
[2023-08-13] MEDS: PANTOprazole 40 MG in SYRINGE 0 ML IV SCH (10:23)
[2023-08-13 10:30] LABS: INR 1.1 (0.9-1.1); Prothrombin Time 11.5 Seconds (9.0-12.0)
--- NOTE | 2023-08-13 13:26 | Psychiatric Progress Note ---
Date of Service August 13, 2023 Impression / Recommendations Impression 58 yo male with little formal psych hx, hx of rx of antabuse for ETOH recovery and relapse after period of non compliance. Unclear when last appointment occurred at [facility]. Overall, I spent a total of 40 minutes with this case, including review of chart, direct evaluation of the patient, coordination with nursing,coordination of care with hospitalist service, and documentation. (1) Alcohol withdrawal: Plan the 302 warrant will be declined as collateral history, available MSE, and hospital course are consistent with acute alcohol withdrawal delirium. There is no evidence of acute psychotic condition or that his alcohol use was a suicidal gesture. Any 1-on-1 for suicide precautions/302 status can be discontinued but hospitalist service may have other criteria for 1 on 1 for safety given hx of fall/seizure and ongoing confusion. That said, this patient remains confused and at the time of today's exam was not able to fully understand his medical conditions or risks of leaving AMA so although he is not meeting criteria for commitment under the mental health act, he currently lacks capacity to leave the hospital AMA due to ongoing withdrawal delirium. HAMZAH Lozano and Dr. Ellis updated. He voiced some willingness for rehab programming when medically cleared but was inconsistent in treatment needs at this time. Interval History Identifying Information 58 yo male from [place] brought to ED on 302 warrant (crisis/[employer] the petitioner). Admit medically for ETOH detox. Chief Complaint "I don't want to hurt myself. Antabuse was good. My sister gave that info." Subjective Subjective Patient was seen & assessed and interval progress reviewed with nursing. Patient has been scoring on the AWSS protocol and received prn benzos was s leeping/unable to be assessed this am. Received notice from staff around noon that he was eating and able to communicate. Patient has limited memory of police bringing him to the hospital. Physical Exam Psychiatric Orientation: alert Apperance: + disheveled Eye Contact: + fair eye contact Motor Behavior: + abnormal motor movements (minimal restlessness) Speech: + abnormal rate/rhythm/volume of speech (slurred) Affect: + blunted affect Mood: no depressed mood Thought Process: + concrete thought process Thought Content: not paranoid and no delusions Suicidal Thoughts: denies suicidal thoughts Homicidal Thoughts: denies homicidal thoughts Hallucinations: no auditory hallucinations and no visual hallucinations Cognition: language grossly intact; + attention not intact Vital Signs (Past 24 Hours) Last Vital Signs Temp 36.9 C 08/13/23 11:30 Pulse 113 H 08/13/23 11:30 Resp 28 H 08/13/23 11:30 BP 129/99 08/13/23 11:30 Pulse Ox 96 08/13/23 11:30 O2 Del Method Room Air 08/13/23 11:30 Results & Data ([facility]) Laboratory Results Laboratory Results - last 24 hr 08/13/23 08/13/23 08/13/23 07:34 09:35 12:10 WBC 5.79 RBC 2.78 L Hgb 9.3 L Hct 28.2 L MCV 101.4 H MCH 33.5 MCHC 33.0 RDW Std Deviation 61.3 H RDW Coeff of Joshua 16.6 H Plt Count 92 L MPV 11.4 Immature Gran % (Auto) 0.7 Neut % (Auto) 72.3 Lymph % (Auto) 17.1 [place] % (Auto) 7.4 Eos % (Auto) 2.2 Baso % (Auto) 0.3 Neut # (Auto) 4.18 Lymph # (Auto) 0.[address] [place] # (Auto) 0.43 Eos # (Auto) 0.13 Baso # (Auto) 0.02 Immature Gran # (Auto) 0.04 Absolute Nucleated RBC 0.03 Nucleated RBC % (auto) 0.5 PT 11.5 INR 1.1 Sodium 137 Potassium 3.3 L Chloride 105 Carbon Dioxide 26 Anion Gap 6 BUN 24 H Creatinine 1.21 D Est Cr Clr Drug Dosing 66.7 Est GFR ( Amer) 75.5 Est GFR (Non-Af Amer) 65.1 BUN/Creatinine Ratio 19.8 Glucose 87 Calcium 8.8 Total Bilirubin 2.1 H AST 617 H ALT 355 H Alkaline Phosphatase 209 H Total Creatine Kinase 76 Total Protein 6.1 Albumin 3.5 Globulin 2.6 Albumin/Globulin Ratio 1.3 Stool Occult Bld Scrn Cancelled 08/13/23 12:50 WBC RBC Hgb Hct MCV MCH MCHC RDW Std Deviation RDW Coeff of Joshua Plt Count MPV Immature Gran % (Auto) Neut % (Auto) Lymph % (Auto) [place] % (Auto) Eos % (Auto) Baso % (Auto) Neut # (Auto) Lymph # (Auto) [place] # (Auto) Eos # (Auto) Baso # (Auto) Immature Gran # (Auto) Absolute Nucleated RBC Nucleated RBC % (auto) PT INR Sodium Potassium Chloride Carbon Dioxide Anion Gap BUN Creatinine Est Cr Clr Drug Dosing Est GFR ( Amer) Est GFR (Non-Af Amer) BUN/Creatinine Ratio Glucose Calcium Total Bilirubin AST ALT Alkaline Phosphatase Total Creatine Kinase Total Protein Albumin Globulin Albumin/Globulin Ratio Stool Occult Bld Scrn Pending Current Inpatient Medications Current Inpatient Medications: Current Inpatient Medications Acetaminophen (Acetaminophen 325 Mg Tab) 650 mg PO Q4H PRN PRN Reason: Pain or Fever Stop: 09/11/23 03:56 Atorvastatin Calcium (Atorvastatin 40 Mg Tab) 40 mg PO QPM [facility] Stop: 09/11/23 20:59 Last Admin: 08/12/23 21:29 Dose: 40 mg Ezetimibe (Ezetimibe 10 Mg Tab) 10 mg PO HS [facility] Stop: 09/11/23 20:59 Last Admin: 08/12/23 21:29 Dose: 10 mg Escitalopram Oxalate (Escitalopram Oxalate 20 Mg Tab) 20 mg PO QPM [facility] Stop: 09/11/23 20:59 Last Admin: 08/12/23 21:29 Dose: 20 mg Folic Acid (Folic Acid 1 Mg Tab) 1 mg PO QAM [facility] Stop: 09/11/23 08:59 Last Admin: 08/13/23 07:30 Dose: 1 mg Gabapentin (Gabapentin 600 Mg Tab) 600 mg PO Q24H [facility] Stop: 08/15/23 20:46 Gabapentin (Gabapentin 600 Mg Tab) 600 mg PO Q12H [facility] Stop: 08/14/23 20:46 Gabapentin (Gabapentin 600 Mg Tab) 600 mg PO Q8H [facility] Stop: 08/13/23 20:46 Last Admin: 08/13/23 13:08 Dose: 600 mg Hydrochlorothiazide (Hydrochlorothiazide 25 Mg Tab) 12.5 mg PO QAM [facility] Stop: 09/11/23 08:59 Last Admin: 08/12/23 08:12 Dose: 12.5 mg Lorazepam 1 mg/ Syringe 1 mls @ 2 mls/min IV UD PRN; Protocol PRN Reason: EtOH Withdrawal AWSS Score 6,7 Stop: 09/11/23 03:56 Last Admin: 08/12/23 23:08 Dose: 2 mls/min Lorazepam 2 mg/ Syringe 2 mls @ 2 mls/min IV UD PRN; Protocol PRN Reason: EtOH Withdrawal AWSS Score 8,9 Stop: 09/11/23 03:56 Last Admin: 08/13/23 08:35 Dose: 2 mls/min Lorazepam 3 mg/ Syringe 3 mls @ 2 mls/min IV ONCE PRN; Protocol PRN Reason: EtOH Withdrawal AWSS Score 10+ Thiamine HCl 500 mg/ Sodium (Chloride) 55 mls @ 210 mls/hr IV Q8H [facility] Stop: 08/14/23 01:16 Last Infusion: 08/13/23 08:06 Dose: Infused Lactated Ringer's (Lr) 1,000 mls @ 100 mls/hr IV .Q10H [facility] Stop: 09/11/23 16:29 Last Admin: 08/13/23 03:40 Dose: 100 mls/hr Pantoprazole Sodium 40 mg/ (Syringe) 10 mls @ 5 mls/min IV BID [facility] Stop: 09/12/23 08:59 Last Admin: 08/13/23 10:23 Dose: 5 mls/min Levothyroxine Sodium (Levothyroxine Sodium 125 Mcg Tablet) 125 mcg PO DAILYBB [facility] Stop: 09/11/23 06:29 Last Admin: 08/13/23 06:07 Dose: 125 mcg Ondansetron HCl (Ondansetron Inj 2 Mg/Ml 2 Ml Vial) 4 mg IV Q6H PRN PRN Reason: Nausea Stop: 09/11/23 03:56 Thiamine HCl (Thiamine Hcl 100 Mg Tab) [address] [facility] Stop: 09/11/23 08:59 Last Admin: 08/13/23 07:30 Dose: 100 mg Valsartan (Valsartan 80 Mg Tab) 320 mg PO QAM [facility] Stop: 09/11/23 08:59 Last Admin: 08/13/23 10:24 Dose: 320 mg
--- NOTE | 2023-08-13 13:36 | Hospitalist Progress Note ---
Date of Service August 13, 2023 Assessment & Plan (1) Alcohol withdrawal: Plan: -Patient states he drinks 1 pint of vodka daily, last drink at 6pm on 08/10. -Reports witnessed (by girlfriend) ?seizure a few days prior to admission, girlfriend reported that possible seizure occurred on 08/10 prior to supervisor title arrival - Etoh level on admission <10 -Has been on naltrexone, disulfiram in the past but has not taken in some time. Has previously been to [facility]/rehab. Was going to therapy at [place] but stopped in the last month, without a reason (s/o thinks related to Losing his job) -AWSS protocol ordered - Ativan body line finisher of 08/11 - patient with witnessed seizure, fell off toilet and hit head/face - CT Head/C-spine/Abd without acute findings Gabapentin AWSS protocol added Continue folic Acid Thiamine increased to 500 mg IV TID x 6 doses Psych consult - 302 warrant denied - However at this time does not exhibit capacity to leave AMA at this time (2) Adjustment disorder with depressed mood: Plan: last seen by PCP for this 01/2023 - documented not controlled, increased lexapro to 20mg - denies suicidial thoughts - Psychiatry following (3) Thrombocytopenia: Plan: Platelets 125 on arrival Decreased to 104 --> 92 Suspect in the setting of increasing LFTs/ETOh abuse Follow AM CBC (4) Anemia: Plan: Hgb 13.2 on arrival --> 10.8 --> 9.3 - Baseline 15, suspect some component of dilution and phlebotomy - no evidence of bleeding currently - Heme occult stool negative - Transition PPI to IV BID Trend CBC (5) Acute kidney injury: Plan: -Cr at 1.77 on admission, baseline from prior labs appears to be ~1.1 -Given 1L bolus in ED -am Cr 1.69, will hydrated with IV fluids overnight Hold HCTZ AM BMP (6) Elevated LFTs: Plan: -MELD score calculated: 17 on admission -AST, ALT, alk phos and bili elevated from prior tests, likely secondary to ongoing alcohol consumption - hepatic steatosis with possible early cirrhosis seen on CT A/P 08/12 LFTs increasing, discriminant function 4.4, no indication for steroids at this time Follow AM CMP (7) Hypokalemia: Plan: -Potassium of 3.1 on arrival, 10meq IV replacement ordered in ED AM labs: K 3.1 --> 40meq PO given 3/3: K 3.3 --> 40meq PO given recheck AM CMP and mag (8) Hypothyroidism: Plan: -TSH on admission elevated to 25 -Unsure if patient has been taking medication as prescribed, may need to repeat as outpatient and adjust home dosage -Continue levothyroxine (9) Hyperlipidemia: Plan: Continue Atorvastatin, Ezetimibe (10) Hypertension: Plan: Valsartan continued HCTZ on hold with EARLINE Plan Dispo: continued inpatient stay DVT Proh: SCDs, (hold on heparin given thrombocytopenia, and lovenox given EARLINE) significant other updated at bedside Discussed case with Dr. Avelar, psychiatry Admission and Anticipated Discharge Date Admission Date: August 12, 2023 Supervising Physician Co-Signing Physician Notes Attending Attestation - Chart reviewed in detail, care plan d/w HAMZAH Craven. I agree with the mccauley components of her documentation. Yoel Ellis MD Subjective attempted to see the patient this morning, however he had just received a dose of Ativan and was very difficult to to arouse. Revisited patient later this afternoon had received another dose of Ativan was a little bit more arousable. States that he feels good when he sleeping, when he is not sleeping he feels tired. Denies any pain. Girlfriend present at bedside does not know patient's extensive history as they have not been together long but is concerned about his mental health. States that he stopped going to therapy and taking his medications after he lost his job. he got a new job but was concerned that would not be a good fit for him and he never went to his first day to try it. She is also concerned about his finances. She relates that mother and sister are involved in his care but does relate that there does appear to be family difficulties.. discussed potential seizure that patient relayed to me, girlfriend states that she had gone to the store and came back and patient was sitting with arms extended and almost looked frozen and then after that had difficulty speaking for a few minutes. Questioning if she was seeing him in a postictal state. I informed girlfriend that when he arrived his alcohol level was less than 10, and she is wondering if he did try to stop drinking at home. States that he has been able to cut himself off cold turkey in the past but thinks that this course of drinking was much more than his usual. Tele ST 100s Review of Systems Review of Systems: Unobtainable due to cognitive status Physical Exam Physical Exam: General: NAD, VS as above Resp: Tachypneic, lungs clear to auscultation CV: tachycardic, no murmur, Abd: normal bowel sounds, non tender, no hepatosplenomegaly Extremities: Moves all extremities, no edema mild tremor at times Results & Data Results & Data Vital Signs (Past 12 Hours) Vital Signs Temp Pulse Resp BP Pulse Ox O2 Del Method 08/13/23 11:30 36.9 C 113 H 28 H 129/99 96 Room Air 08/13/23 07:05 37.0 C 90 22 148/104 H 95 Room Air 08/13/23 03:00 36.9 C 97 H 23 138/95 94 Room Air Laboratory Results CBC, chemistry reviewed fecal occult blood reviewed Medications Administered , PG Care Time/CCT Total # of Minutes Spent Total Time Spent with Patient: Total time spent is greater than 50% in coordination of care (as documented) at patient's floor/unit and/or counseling patient: Coding Level of Care Code 62033 SUB INP/OBS CARE 3/50MIN Diagnoses Alcohol withdrawal F10.939 Adjustment disorder with depressed mood F43.21 Thrombocytopenia D69.6 Anemia D64.9 Acute kidney injury N17.9 Elevated LFTs R79.89 Hypokalemia E87.6 Hypothyroidism E03.9 Hyperlipidemia E78.5 Hypertension I10
[2023-08-13 14:52] LABS: Hematocrit (blood only) 26.3 % (42.0-52.0); Hemoglobin 8.8 g/dl (14.0-18.0)
[2023-08-13] MEDS: LORazepam 3 MG in SYRINGE 1.5 ML IV PRN ×2 (20:11→23:00)
--- NOTE | 2023-08-13 21:38 | CT Scan Report ---
Exam(s): CT HEAD Without Contrast EXAM: CT Head Without Intravenous Contrast CLINICAL HISTORY: Reason for exam: Change in Mental Status. TECHNIQUE: Axial computed tomography images of the head/brain without intravenous contrast. CTDI is 37.78 mGy and DLP is 547.75 mGy-cm. Automated exposure control was utilized for the study. A dose lowering technique was utilized adhering to the principles of ALARA. COMPARISON: No relevant prior studies available. FINDINGS: No acute intracranial hemorrhage. No midline shift or mass effect. The [place]-white matter differentiation is maintained throughout. Age-related cerebral volume loss. Periventricular and subcortical white matter hypoattenuation, consistent with chronic microangiopathy. The visualized orbits appear grossly unremarkable. The calvarium is intact. The visualized paranasal sinuses and mastoid air cells are grossly clear. IMPRESSION: No acute intracranial hemorrhage, midline shift, or mass effect. Electronically signed by: Josiah Sanchez MD 08/13/23 21:37 PM
[2023-08-13] MEDS: LORazepam 2 MG in SYRINGE 1 ML IV SCH (21:48)
[2023-08-13 21:57] LABS: Base Excess VBG 3.5 mEq/L; HCO3 VBG 27 mmol/L; Oxygen Saturation VBG 87.5 %; PCO2 VBG 35 mmHg (38-50); PO2 VBG 52 mmHg; pH VBG 7.49 (7.36-7.41)
[2023-08-13] MEDS ORDERED: LORazepam 1 MG TAB PO SCH (22:00)
[2023-08-13 22:03] LABS: Basophils # (auto) 0.02 K/uL (0.00-0.20); Basophils % (auto) 0.3 %; Eosinophils # (auto) 0.14 K/uL (0.00-0.50); Eosinophils % (auto) 2.4 %; Hematocrit (blood only) 25.6 % (42.0-52.0); Hemoglobin 8.5 g/dl (14.0-18.0); Immature Granulocytes # (auto) 0.07 K/uL (0.01-0.20); Immature Granulocytes % (auto) 1.2 %; Lymphocytes # (auto) 1.16 K/uL (1.20-3.40); Lymphocytes % (auto) 20.2 %; Mean Corpuscular Hemoglobin 33.7 pg (25.0-34.0); Mean Corpuscular Hgb Conc 33.2 g/dL (32.0-36.0); Mean Corpuscular Volume 101.6 fL (80.0-100.0); Mean Platelet Volume 11.6 fL (9.4-12.4); Monocytes # (auto) 0.51 K/uL (0.11-0.59); Monocytes % (auto) 8.9 %; Neutrophils # (auto) 3.84 K/uL (1.40-6.50); Nucleated RBC # (auto) 0.06 K/uL (0.00-0.12); Platelet Count 98 K/uL (130-400); RDW Coefficient of Variation 16.5 % (11.5-14.5); RDW Standard Deviation 61.1 fL (36.4-46.3); Red Blood Count 2.52 M/uL (4.70-6.10); White Blood Count 5.74 K/ul (4.8-10.8)
[2023-08-13 22:06] LABS: Appearance Urine Cloudy (Clear); Bacteria Urine Automated 1+ (Negative); Blood Urine Negative (Negative); Color Urine Dark Yellow; Epithelial Cell Urine Auto 0-5 /lpf (0-5); Glucose Urine UA Negative (Negative); Ketones Urine Negative (Negative); Leukocyte Esterase Urine 2+ (Negative); Nitrite Urine Positive (Negative); Protein Urine 1+ (Negative); RBC Urine Automated 0-4 /hpf (0-4); Specific Gravity Urine 1.023 (1.000-1.030); Urobilinogen Urine Positive (Negative); WBC Urine Automated >30 /hpf (0-5)
[2023-08-13 22:12] LABS: Bilirubin Urine 1+ (Negative)
[2023-08-13 22:21] LABS: Albumin Level 3.2 gm/dl (3.4-5.0); Bilirubin,Total 1.8 mg/dl (0.2-1.0); Calcium 8.6 mg/dl (8.6-10.3); Magnesium 1.2 mg/dl (1.7-2.4); Potassium 3.4 mmol/L (3.5-5.1)
[2023-08-13 22:23] LABS: Amphetamines+Metham, Urine Neg (Neg); Barbiturates, Urine Neg (Neg); Benzodiazepine, Urine Neg (Neg); Cocaine, Urine Neg (Neg); MDMA (Ecstacy), Urine Neg (Neg); Marijuana, Urine Neg (Neg); Methadone, Urine Neg (Neg); Opiate, Urine Neg (Neg); Phencyclidine, Urine Neg (Neg)
[2023-08-13 22:27] LABS: Albumin Globulin Ratio 1.2 (0.9-2); Creatinine Clr Calc Pharmacy 67.3 ml/min; Est GFR (African American) 76.3 ml/min; Est GFR (Non-African American) 65.8 ml/min; Globulin 2.6 gm/dl (2.5-4.0); Total Protein 5.8 gm/dl (6.0-8.3)
[2023-08-14] MEDS: MAGNESIUM SULFATE / D5W 1 GM/100 ML BAG IV SCH (00:33)
[2023-08-14] MEDS: POTASSIUM CHLORIDE / WTR 10 MEQ/100 ML PLCT IV SCH (00:33)
--- NOTE | 2023-08-14 06:01 | Communication Note ---
First alerted of elevated AWSS= 13 at approximately 2000 and pt was given 3mg Ativan per AWSS protocol. Evaluated pt at bedside and pt, was sedated but arousable, unable to answer questions appropriate. Ordered repeat labs; CBC, CMP, Mg, Ammonia, VBG which were largely unremarkable compared to prior. K=3.4, Mg=1.2 and both were repleted. CXR unremarkable per my read, f/u final read. Re peat Head CT was ordered and was without acute findings. Throughout the night his AWSS has remained between 13-15. He was been tachycardia and HTN which has improved some with Ativan. He has also been tachypneic. Considered started phenobarbital, but decided against, since he has already been on protocol with Ativan for 3 days. Added scheduled Ativan 2mg q8 in addition to AWSS protocol. Have been monitoring end tidal Co2. I have been up to evaluated pt throughout out the night multiple times for elevated AWSS scores. Assessed and gave additional doses of Ativan as appropriate, when pt was not overly sedated and as he became more tachycardic, HTN, tachypneic and anxious. Date of Service: August 14, 2023
[2023-08-14 06:05] LABS: Base Excess VBG 2.3 mEq/L; HCO3 VBG 27 mmol/L; Oxygen Saturation VBG 66.2 %; PCO2 VBG 39 mmHg (38-50); PO2 VBG 38 mmHg; pH VBG 7.44 (7.36-7.41)
[2023-08-14 06:13] LABS: Basophils # (auto) 0.03 K/uL (0.00-0.20); Basophils % (auto) 0.5 %; Eosinophils # (auto) 0.14 K/uL (0.00-0.50); Eosinophils % (auto) 2.3 %; Hematocrit (blood only) 24.5 % (42.0-52.0); Hemoglobin 8.4 g/dl (14.0-18.0); Immature Granulocytes # (auto) 0.08 K/uL (0.01-0.20); Immature Granulocytes % (auto) 1.3 %; Lymphocytes # (auto) 1.02 K/uL (1.20-3.40); Mean Corpuscular Hemoglobin 34.1 pg (25.0-34.0); Mean Corpuscular Hgb Conc 34.3 g/dL (32.0-36.0); Mean Corpuscular Volume 99.6 fL (80.0-100.0); Mean Platelet Volume 11.5 fL (9.4-12.4); Monocytes # (auto) 0.47 K/uL (0.11-0.59); Monocytes % (auto) 7.8 %; Neutrophils # (auto) 4.26 K/uL (1.40-6.50); Neutrophils % (auto) 71.1 %; Nucleated RBC # (auto) 0.05 K/uL (0.00-0.12); Nucleated RBC % (auto) 0.8 %; Platelet Count 91 K/uL (130-400); RDW Coefficient of Variation 16.5 % (11.5-14.5); Red Blood Count 2.46 M/uL (4.70-6.10); Reticulocyte % 1.56 % (0.50-2.00)
[2023-08-14 06:37] LABS: Albumin Globulin Ratio 1.3 (0.9-2); Albumin Level 3.2 gm/dl (3.4-5.0); BUN Creatinine Ratio 13.3 (10-20); Bilirubin,Total 1.9 mg/dl (0.2-1.0); Calcium 8.4 mg/dl (8.6-10.3); Creatinine Clr Calc Pharmacy 72.1 ml/min; Est GFR (Non-African American) 70.8 ml/min; Globulin 2.5 gm/dl (2.5-4.0); Magnesium 1.9 mg/dl (1.7-2.4); Potassium 3.5 mmol/L (3.5-5.1); Total Protein 5.7 gm/dl (6.0-8.3)
--- NOTE | 2023-08-14 06:50 | XRay Report ---
XR chest 1V portable CLINICAL HISTORY: Increased respitory rate TECHNIQUE: Single frontal radiograph of the chest was obtained. Comparison: Comparison is made to chest radiograph 11/08/2022 FINDINGS: No lines and tubes are seen. The cardiomediastinal silhouette is normal. Faint bilateral airspace opa cities are seen in the left midlung and right upper and midlung. The lungs are noted to be underinfla maya. No evidence of pleural effusion or pneumothorax. IMPRESSION: Faint bilateral airspace opacities which likely represent atelectasis with or without superimposed as piration/pneumonia ACT 112: Negative or not required by law. Electronically signed by: David Owusu M.D. 08/14/2023 6:49 AM
[2023-08-14 07:20] LABS: INR 1.1 (0.9-1.1); Prothrombin Time 11.5 Seconds (9.0-12.0)
[2023-08-14] MEDS: THIAMINE HCL 200 MG in SODIUM CHLORIDE 0.9% 50 ML IV SCH (08:44)
[2023-08-14] MEDS ORDERED: GABAPENTIN 600 MG TAB PO SCH (08:45)
[2023-08-14] MEDS: PHENobarbital sodium 130 MG/ML VIAL IM STA (09:16)
[2023-08-14] MEDS: AMPICILLIN/SULBACTAM SOD 3,000 MG in SODIUM CHLOR 0.9% MINI-B 100 ML IV SCH ×2 (09:16→19:57)
--- NOTE | 2023-08-14 09:52 | Hospitalist Progress Note ---
Date of Service August 14, 2023 Assessment & Plan (1) Alcohol withdrawal: Plan: Metabolic encephalopathy -Patient states he drinks 1 pint of vodka daily, last drink at 6pm on 08/10. -Reports witnessed (by girlfriend) ?seizure a few days prior to admission, girlfriend reported that possible seizure occurred on 08/10 prior to buttonhole facer arrival - Etoh level on admission <10 -Has been on naltrexone, disulfiram in the past but has not taken in some time. Has previously been to [facility]/rehab. 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 - patient with witnessed seizure, fell off toilet and hit head/face - CT Head/C-spine/Abd without acute findings 08/13 - Acute worsening overnight, reported DTs overnight - Stopped Ativan and Gabapentin protocol, and started Phenobarbital protocol - Lopressor 5mg q6h - Clonidine patch added Real Estate Broker Associate consulted - Recommended giving the patient ETOH, however patient currently cannot respond to commands and is NPO and do not feel this is safe - Recommend diuresis - 40mg IV ordered by manager of software development - abx stopped by manager of software development, however + UC and procal so these will be restarted Will place IV fluids on hold, while diuresing Continue folic Acid Thiamine increased to 500 mg IV TID x 6 doses --> completed, now 200 mg IV BID Psych consult - 302 warrant denied - However at this time does not exhibit capacity to leave AMA at this time (2) Adjustment disorder with depressed mood: Plan: last seen by PCP for this 01/2023 - documented not controlled, increased lexapro to 20mg - denies suicidial thoughts - Psychiatry following (3) UTI (urinary tract infection): Plan: 08/12 urine culture with gram negative bacilli - + procal Currently on Unasyn (4) Thrombocytopenia: Plan: Platelets 125 on arrival Decreased to 104 --> 92 Suspect in the setting of increasing LFTs/ETOh abuse Follow AM CBC (5) Anemia: Plan: Hgb 13.2 on arrival --> 10.8 --> 9.3 - Baseline 15, suspect some component of dilution and phlebotomy - no evidence of bleeding currently - Heme occult stool negative - B12 > 1500 - Iron studies without iron deficiency - Transition PPI to IV BID Trend CBC (6) Acute kidney injury: Plan: -Cr at 1.77 on admission, baseline from prior labs appears to be ~1.1 -Given 1L bolus in ED -am Cr 1.69, will hydrated with IV fluids overnight Hold HCTZ Fluids on hold AM BMP (7) Elevated LFTs: Plan: -MELD score calculated: 17 on admission -AST, ALT, alk phos and bili elevated from prior tests, likely secondary to ongoing alcohol consumption - hepatic steatosis with possible early cirrhosis seen on CT A/P 3/ LFTs increasing, discriminant function 4.4, no indication for steroids at this time 3/ LFTs improving Follow AM CMP (8) Hypokalemia: Plan: -Potassium of 3.1 on arrival, 10meq IV replacement ordered in ED AM labs: K 3.1 --> 40meq PO given 08/12: K 3.3 --> 40meq PO given /4 stable (9) Hypothyroidism: Plan: -TSH on admission elevated to 25 -Unsure if patient has been taking medication as prescribed, may need to repeat as outpatient and adjust home dosage -Continue levothyroxine (10) Hyperlipidemia: Plan: Continue Atorvastatin, Ezetimibe (11) Hypertension: Plan: Valsartan continued HCTZ on hold with EARLINE Metoprolol and clonidine added to treat hypertension secondary to ETOH withdrawal Plan Dispo: continued inpatient stay DVT Proh: SCDs, (hold on heparin given thrombocytopenia, and lovenox given EARLINE) significant other updated at bedside Admission and Anticipated Discharge Date Admission Date: August 12, 2023 Supervising Physician Co-Signing Physician Notes Attending Attestation and Progress Note: Pt seen & examined, chart reviewed in detail, care plan d/w HAMZAH Craven. I agree with the mccauley components of her documentation. Events of overnight and the last 24 hours noted. Bedside exam - gen - patient not responsive to his name being called, ill-appearing, tachypneic with retractions neck - no obvious JVD heart - tachy, s1 s2 lungs - course BS b/l, tachypnea, retractions abd - soft NT ND BS+ ext - no edema, pulses 2+ b/l skin - diaphoretic A/P: 1. acute metabolic encephalopathy 2. acute hypoxic respiratory failure 3. severe etoh withdrawal/DTs 4. UTI 5. ?pneumonia 6. acute alcoholic hepatitis 7. tobacco dependence Consulted Dr Garcia from the ICU due to concern he would need higher level of care in the setting of worsening #1, #2, #3. Antibiotics for #4, #5. Stop IV ativan (scheduled and prn). Stop gabapentin. Change to phenobarbital protocol Thiamine, folic acid supplementation. BP control - Dr Garcia added clonidine which will help with BPs and #3. High risk of ongoing deterioration. Yoel Ellis MD Subjective Patient seen earlier this morning - opens his eyes to stimuli. Discussed case with Dr. Garcia this morning, manager of software development, recommended switching to Phenobarbital protocol. Patient acutely worse this afternoon, formally consulted, note in chart. Tele - Sinus Tach 100-110s Review of Systems Review of Systems: Unobtainable due to cognitive status Physical Exam Physical Exam: General: lying in bed, opens eyes to stimuli only , VS as above Resp: Tachypneic,with accessory muscle use CV: tachycardic, no murmur, Abd: appears non tender, Extremities: Moves all extremities, no edema, no tremor presently Results & Data Results & Data Vital Signs (Past 12 Hours) Vital Signs Temp Pulse Pulse Resp BP BP BP 08/14/23 09:16 91 H 46 H 164/112 H 08/14/23 07:44 90 25 H 164/121 H 08/14/23 05:57 36.8 C 96 H 40 H 164/121 H 08/14/23 04:51 36.8 C 92 H 34 H 158/116 H 08/14/23 03:59 37 C 105 H 46 H 148/112 H 08/14/23 02:56 37 C 90 28 H 160/117 H 08/14/23 02:02 37.2 C 94 H 36 H 151/113 H 08/14/23 00:42 37.1 C 94 H 38 H 151/113 H 08/14/23 00:00 37.2 C 94 H 36 H 166/116 H 08/13/23 23:17 36.8 C 96 H 36 H 165/116 H 08/13/23 22:47 37.1 C 97 H 36 H 147/108 H 08/13/23 22:03 37.1 C 91 H 40 H 166/102 H 08/13/23 22:00 96 H Pulse Ox O2 Del Method 08/14/23 09:16 08/14/23 07:44 94 Room Air 08/14/23 05:57 94 Room Air 08/14/23 04:51 93 Room Air 08/14/23 03:59 93 Room Air 08/14/23 02:56 93 Room Air 08/14/23 02:02 94 Room Air 08/14/23 00:42 95 Room Air 08/14/23 00:00 95 Room Air 08/13/23 23:17 95 Room Air 08/13/23 22:47 95 Room Air 08/13/23 22:03 96 Room Air 08/13/23 22:00 Laboratory Results CBC, chemistry, ammonia, irons studies, B12 reveiwed Diagnostic Findings CXR reviewed PG Care Time/CCT Total # of Minutes Spent Total Time Spent with Patient: Total time spent is greater than 50% in coordination of care (as documented) at patient's floor/unit and/or counseling patient: Coding Level of Care Code 70496 SUB INP/OBS CARE 3/50MIN Diagnoses Alcohol withdrawal F10.939 Adjustment disorder with depressed mood F43.21 UTI (urinary tract infection) N39.0 Thrombocytopenia D69.6 Anemia D64.9 Acute kidney injury N17.9 Elevated LFTs R79.89 Hypokalemia E87.6 Hypothyroidism E03.9 Hyperlipidemia E78.5 Hypertension I10
[2023-08-14] MEDS: PHENobarbital sodium 65 MG/ML VIAL IM SCH (12:24)
[2023-08-14] MEDS: METOPROLOL TARTRATE 1 MG/ML VIAL IV SCH (12:50)
[2023-08-14 14:48] LABS: Allen Test Pos (Pos); Base Excess ABG 1.3 mEq/L (-9-1.8); HCO3 ABG 25 mmol/L (19-24); Oxygen Saturation ABG 97.3 % (90-95); PCO2 ABG 33 mmHg (35-46); PO2 ABG 77 mmHg (80-95); pH ABG 7.48 (7.35-7.45)
--- NOTE | 2023-08-14 14:51 | Critical Care Consultation ---
Date of Consultation August 14, 2023 Assessment & Plan (1) Acute alcoholic hepatitis: (2) Alcohol withdrawal: (3) Anemia: (4) Hypertension: Plan Impression: 58-year-old male with extensive history of alcohol abuse admitted for alcohol withdrawal and questionable seizure activity. He is currently on phenobarb and appears sedated but remains tachypneic. His chest x-ray shows low lung volumes and the patient is over 6 L positive which may be driving some of his tachypnea. He continues to demonstrate hypertension. Recommendations: 1. Alcohol withdrawal: Options at this point in time would be to just provide the patient alcohol is apparently according to the notes he does not have any intention of remaining abstinent or participating in counseling programs. The likelihood of him remaining alcohol free after an extensive hospitalization and detox appears low. If additional efforts to remain free of alcohol are required, would agree with phenobarb for now. Could continue judicious benzodiazepines. Medications are largely being dosed based on vital sign abnormalities so would try and treat these abnormalities independent. His tachypnea may be secondary to volume overload so dose of diuretics and follow-up might be appropriate. Will place the patient on a trial of transdermal clonidine which may offer some benefits with regards to central GRADER GREEN MEAT effects as well as antihypertensives. Agree with high-dose thiamine and folate. Precedex would be unlikely to treat tachypnea. If the patient were to demonstrate increasing agitation, restraints, or sitter, consideration for escalation of care may be appropriate however after discussion with the nurse it appears that he does not require those interventions currently. 2. Management of the patient's other medical issues is deferred to the primary admitting service. I do not see an indication for antimicrobial therapy so I would recommend antibiotics be withheld. Critical care services will sign off but will remain remain aware of the patient if our input is needed. Thanks for the opportunity of participating in the care of this patient History of Present Illness Attending Physician: Yoel Ellis MD History of Present Illness Asked by hospitalist to evaluate this patient with tachypnea and alcohol withdrawal syndrome. History is obtained from review the electronic medical record. The patient is obtunded and unable to provide any pertinent history. Patient is a 58-year-old male with a history of alcohol abuse who presented to the hospital 08/12/2023 by EMS and inability to care for the patient at home. The patient has an extensive alcohol history. He is apparently been enrolled in rehab in the past and has been on medications but has failed these inte rventions. He was admitted to the hospitalist service with a diagnosis of alcohol withdrawal. He had questionable seizure activity noted during this hospitalization. He was seen by psychiatry for possible medical hold but this was not felt to be appropriate. He was initially placed on Ativan which was then transitioned to Neurontin. Has been placed on phenobarb today. He remains tachypneic and hypertensive. His elevated alcohol withdrawal scores are largely driven by his vital sign abnormalities including hypertension and tachycardia. He is over 6 L positive since presentation. He has been placed on thiamine and folate. He is on antibiotics for reasons that are not entirely clear. Allergies Allergy/AdvReac Type Severity Reaction Status Date / Time Sulfa (Sulfonamide Allergy Mild HIVES Verified 08/12/23 02:12 Antibiotics) MARGARET Inhibitors Allergy Unknown COUGH Verified 08/12/23 02:12 amlodipine Allergy Unknown FATIGUE Verified 08/12/23 02:12 clonidine Allergy Unknown HEADACHES Verified 08/12/23 02:12 varenicline [From Chantix] Allergy Unknown Unknown Verified 08/12/23 02:12 Home Medications Medication Instructions Recorded Confirmed Type ezetimibe 10 mg tablet 10 mg PO HS 07/29/21 08/12/23 History atorvastatin 40 mg tablet 40 mg PO QPM #90 tabs 09/01/22 08/12/23 Rx omeprazole 40 mg capsule,delayed 40 mg PO QPM #90 caps 09/01/22 08/12/23 Rx release multivitamin 1 tab PO QAM 11/10/22 08/12/23 History tadalafil 5 mg tablet 5 mg PO DAILY PRN Erectile 11/10/22 08/12/23 History Dysfunction valsartan 320 1 tab PO QAM 11/10/22 08/12/23 History mg-hydrochlorothiazide 12.5 mg tablet levothyroxine 125 mcg tablet 125 mcg PO QAM #90 tabs 12/27/22 08/12/23 Rx valacyclovir 1 gram tablet 1,000 mg PO TID #21 tabs 05/31/23 08/12/23 Rx (Valtrex) escitalopram oxalate 20 mg tablet 20 mg PO QPM #90 tabs 06/09/23 08/12/23 Rx disulfiram 250 mg tablet See Rx Instructions .Route 06/28/23 08/12/23 Rx .COMPLEX #60 tabs albuterol sulfate 90 mcg/actuation See Rx Instructions .Route 06/30/23 08/12/23 Rx aerosol inhaler .COMPLEX #18 ea Patient History Medical History (Updated 08/13/23 @ 14:40 by Savanah Craven PA-C) Prediabetes Presumed- Hgb A1C 6.3 on 10/12/22 Coronary artery calcification seen on CAT scan chest CT 03/2020 negative stress test 06/2021 Alcohol abuse Adjustment disorder with depressed mood Allergic rhinitis Anxiety Barretts esophagus Chronic cough Hiatal hernia Obstructive sleep apnea no device Periodic limb movements of sleep Small airways disease prn inhaler for this > rare res inh use Hypothyroidism GERD (gastroesophageal reflux disease) Hyperlipidemia Hypertension Surgical History S/P wrist surgery R WRIST REPAIR OF TORN TENDON Hx of vasectomy History of colonoscopy History of esophagogastroduodenoscopy (EGD) History of appendectomy History of tooth extraction WISDOM TEETH History of tonsillectomy S/P LASIK surgery of both eyes History of lumbar spinal fusion Family History Father Alcohol abuse COPD (chronic obstructive pulmonary disease) Hypertension Reported family history of early sudden deaths Mother Hypertension Hyperlipidemia Brother Hypertension Sister Graves' disease Social History Smoking Status: Current every day smoker Tobacco Type: Cigarettes Cigarettes Per Day: 1 ppd; Second Hand Exposure: No; Do You Dip or Chew Tobacco: No; Hx Alcohol Use: No Hx Substance Use: Yes Substance Use Type Other:: medical card very occasional Preferred Language: Hungarian Communication Ability: Effective Visual Impairment: Limited Hearing Ability: Normal Robotics Technician Required: No Beliefs That Will Affect Care: None marital status: Current Living Situation: Significant Other Current Living Situation Comment: LIVES WITH GIRLFRIEND current occupational status: employed current occupation: [employer]ika [employer] Feels Safe at Home: Yes Childhood Exposure to Second-Hand Smoke: No caffeine: Yes Dental Care, Regularly: Yes Physical Activity Frequency: Does not Exercise Seatbelt Use: always Sunscreen Use: No Assistive Devices: Glasses Review of Systems Review of Systems: Unobtainable due to reduced consciousness Physical Exam Constitutional: Sedated Neck: trachea midline, no thyromegaly Respiratory: + tachypneic; no respiratory distress, n o labored breathing and no cough Auscultation: + crackles; no wheezes Cardiovascular: RRR, no murmur, no edema Gastrointestinal (Abdomen): normal bowel sounds, soft, nontender, no hepatosplenomegaly Musculoskeletal: Extremities: extremities normal to inspection Skin: no rashes, warm and dry Neurologic: Nonfocal exam Lymphatic: no cervical lymphadenopathy Results & Data Results & Data Vital Signs (Past 12 Hours) Vital Signs Temp Pulse Pulse Resp BP BP BP 08/14/23 14:39 95 H 38 H 160/128 H 08/14/23 13:05 91 H 08/14/23 12:24 94 H 22 158/125 H 08/14/23 10:59 36.9 C 90 40 H 158/125 H 08/14/23 09:16 91 H 46 H 164/112 H 08/14/23 07:44 90 25 H 164/121 H 08/14/23 05:57 36.8 C 96 H 40 H 164/121 H 08/14/23 04:51 36.8 C 92 H 34 H 158/116 H 08/14/23 03:59 37 C 105 H 46 H 148/112 H 08/14/23 02:56 37 C 90 28 H 160/117 H Pulse Ox O2 Del Method 08/14/23 14:39 08/14/23 13:05 08/14/23 12:24 08/14/23 10:59 93 Room Air 08/14/23 09:16 08/14/23 07:44 94 Room Air 08/14/23 05:57 94 Room Air 08/14/23 04:51 93 Room Air 08/14/23 03:59 93 Room Air 08/14/23 02:56 93 Room Air Critical Care Results & Data Vital Signs (Past 12 Hours) Vital Signs Temp Pulse Pulse Resp BP BP BP 08/14/23 14:39 95 H 38 H 160/128 H 08/14/23 13:05 91 H 08/14/23 12:24 94 H 22 158/125 H 08/14/23 10:59 36.9 C 90 40 H 158/125 H 08/14/23 09:16 91 H 46 H 164/112 H 08/14/23 07:44 90 25 H 164/121 H 08/14/23 05:57 36.8 C 96 H 40 H 164/121 H 08/14/23 04:51 36.8 C 92 H 34 H 158/116 H 08/14/23 03:59 37 C 105 H 46 H 148/112 H 08/14/23 02:56 37 C 90 28 H 160/117 H Pulse Ox O2 Del Method 08/14/23 14:39 08/14/23 13:05 08/14/23 12:24 08/14/23 10:59 93 Room Air 08/14/23 09:16 08/14/23 07:44 94 Room Air 08/14/23 05:57 94 Room Air 08/14/23 04:51 93 Room Air 08/14/23 03:59 93 Room Air 08/14/23 02:56 93 Room Air Lab & Micro Results (Past 24 Hours) RBC 2.46 M/uL (4.70-6.10) L 08/14/23 WBC 6.00 K/ul (4.8-10.8) 08/14/23 Hgb 8.4 g/dl (14.0-18.0) L 08/14/23 Hct 24.5 % (42.0-52.0) L 08/14/23 MCV 99.6 fL (80.0-100.0) 08/14/23 MCH 34.1 pg (25.0-34.0) H 08/14/23 MCHC 34.3 g/dL (32.0-36.0) 08/14/23 RDW Standard Deviation 60.0 fL (36.4-46.3) H 08/14/23 RDW Coefficient of Variation 16.5 % (11.5-14.5) H 08/14/23 Plt Count 91 K/uL (130-400) L 08/14/23 MPV 11.5 fL (9.4-12.4) 08/14/23 Nucleated Red Blood Cells % (auto) 0.8 % 08/13 Nucleated RBC Absolute Count (auto) 0.05 K/uL (0.00-0.12) 0 08/14/23 Neutrophils (%) (Auto) 71.1 % 08/14/23 Lymphocytes (%) (Auto) 17.0 % 08/14/23 Monocytes # (Auto) 0.47 K/uL (0.11-0.59) 08/14/23 Eosinophils # (Auto) 0.14 K/uL (0.00-0.50) 08/14/23 Immature Granulocyte % (Auto) 1.3 % 08/14/23 Neutrophils # (Auto) 4.26 K/uL (1.40-6.50) 08/14/23 Lymphocytes # (Auto) 1.02 K/uL (1.20-3.40) L 08/14/23 Monocytes # (Auto) 0.47 K/uL (0.11-0.59) 08/14/23 Eosinophils # (Auto) 0.14 K/uL (0.00-0.50) 08/14/23 Basophils # (Auto) 0.03 K/uL (0.00-0.20) 08/14/23 Immature Granulocyte # (Auto) 0.08 K/uL (0.01-0.20) 4 Na 135 mmol/L (136-145) L 08/14/23 K 3.5 mmol/L (3.5-5.1) 08/14/23 Cl 105 mmol/L (98-107) 08/14/23 CO2 25 mmol/L (21-32) 08/14/23 Anion Gap 5 (3-11) 08/14/23 BUN 15 mg/dl (6-23) 08/14/23 Creatinine 1.13 mg/dl (0.6-1.4) 08/14/23 Estimated GFR ( Amer) 82.0 ml/min 08/14/23 Estimated GFR (Non-Af Amer) 70.8 ml/min 08/14/23 BUN/Creatinine Ratio 13.3 (10-20) 08/14/23 Glu 95 mg/dl (70-99(Fasting)) 08/14/23 Ca 8.4 mg/dl (8.6-10.3) L 08/14/23 Total Bilirubin 1.9 mg/dl (0.2-1.0) H 08/14/23 AST 395 U/L (13-39) H 08/14/23 ALT 289 U/L (7-52) H 08/14/23 Alkaline Phosphatase 200 U/L (34-104) H 08/14/23 TP 5.7 gm/dl (6.0-8.3) L 08/14/23 Albumin 3.2 gm/dl (3.4-5.0) L 08/14/23 Globulin 2.5 gm/dl (2.5-4.0) 08/14/23 Albumin/Globulin Ratio 1.3 (0.9-2) 08/14/23 Mg 1.9 mg/dl (1.7-2.4) 08/14/23 05:53 Calcium Level 8.4 mg/dl (8.6-10.3) L 08/14/23 05:53 Prothromb Time International Ratio 1.1 (0.9-1.1) 08/14/23 05:5 3 Venous Blood pH 7.44 (7.36-7.41) H 08/14/23 05:53 Venous Blood Partial Pressure CO2 39 mmHg (38-50) 08/14/23 05:5 3 Venous Blood Partial Pressure O2 38 mmHg 08/14/23 05:53 Venous Blood HCO3 27 mmol/L 08/14/23 05:53 Venous Blood Base Excess 2.3 mEq/L 08/14/23 05:53 Venous Blood Oxygen Saturation 66.2 % 08/14/23 05:53 Arterial Blood pH 7.48 (7.35-7.45) H 08/14/23 14:35 Arterial Blood Partial Pressure CO2 33 mmHg (35-46) L 08/14/23 14:35 Arterial Blood Partial Pressure O2 77 mmHg (80-95) L 08/14/23 1 4:35 Arterial Blood HCO3 25 mmol/L (19-24) H 08/14/23 14:35 Arterial Blood Base Excess 1.3 mEq/L (-9-1.8) 08/14/23 14:35 Arterial Blood Oxygen Saturation 97.3 % (90-95) H 08/14/23 14:3 5 Blood Gas Oxygen Given ROOM AIR 08/14/23 14:35 Binh Test Pos (Pos) 08/14/23 14:35 Microbiology 08/13/23 Unknown Urine Culture - Preliminary Urine,Clean Catch Gram negative bacilli Diagnostic Findings (Past 24 Hours) Chest X-Ray 08/13/23 20:34 XR chest 1V portable CLINICAL HISTORY: Increased respitory rate TECHNIQUE: Single frontal radiograph of the chest was obtained. Comparison: Comparison is made to chest radiograph 11/08/2022 FINDINGS: No lines and tubes are seen. The cardiomediastinal silhouette is normal. Faint bilateral airspace opacities are seen in the left midlung and right upper and midlung. The lungs are noted to be underinflated. No evidence of pleural effusion or pneumothorax. IMPRESSION: Faint bilateral airspace opacities which likely represent atelectasis with or without superimposed aspiration/pneumonia ACT 112: Negative or not required by law. Electronically signed by: David Owusu M.D. 08/14/2023 6:[address] 08/13/23 21:01 Exam(s): CT HEAD Without Contrast EXAM: CT Head Without Intravenous Contrast CLINICAL HISTORY: Reason for exam: Change in Mental Status. TECHNIQUE: Axial computed tomography images of the head/brain without intravenous contrast. CTDI is 37.78 mGy and DLP is 547.75 mGy-cm. Automated exposure control was utilized for the study. A dose lowering technique was utilized adhering to the principles of ALARA. COMPARISON: No relevant prior studies available. FINDINGS: No acute intracranial hemorrhage. No midline shift or mass effect. The [place]-white matter differentiation is maintained throughout. Age-related cerebral volume loss. Periventricular and subcortical white matter hypoattenuation, consistent with chronic microangiopathy. The visualized orbits appear grossly unremarkable. The calvarium is intact. The visualized paranasal sinuses and mastoid air cells are grossly clear. IMPRESSION: No acute intracranial hemorrhage, midline shift, or mass effect. Electronically signed by: Josiah Sanchez MD 08/13/23 21:37 PM I & O Totals 24 Hours 08/13/23 08/14/23 08/15/23 06:59 06:59 06:59 Intake Total 1195 / 1195 2637.5 / 2637.5 985.333 / 985.333 Output Total 480 / 480 115 / 115 Balance 715 / 715 2522.5 / 2522.5 985.333 / 985.333 Cumulative 08/11/23 22:32 thru 08/14/23 10:16 Intake Total 6929.033 Output Total 597 Balance 6332.033 RT Ventilator Mngmt (Last Documented) Ventilator Ordered Settings Respiratory Rate 38 08/14/23 14:39 Ventilator - PT Measurements Respiratory Rate 38 Coding Level of Care Code 95995 IN/OBS CONSULT LVL 4,60M Diagnoses Acute alcoholic hepatitis K70.10 Alcohol withdrawal F10.939 Anemia D64.9 Hypertension I10
[2023-08-14] MEDS: FUROSEMIDE 40 MG/4 ML VIAL IV ONE (15:23)
[2023-08-14] MEDS: cloNIDine HCL 0.3 MG/24 HR TRANSDERM SYS TD SCH (15:23)
[2023-08-14] MEDS: CHECK CLONIDINE PATCH PLACEMENT SCH (15:24)
[2023-08-15 06:20] LABS: Base Excess VBG 4.9 mEq/L; HCO3 VBG 28 mmol/L; Oxygen Saturation VBG 96.8 %; PCO2 VBG 35 mmHg (38-50); PO2 VBG 73 mmHg; pH VBG 7.51 (7.36-7.41)
[2023-08-15 06:28] LABS: Basophils # (auto) 0.02 K/uL (0.00-0.20); Basophils % (auto) 0.3 %; Eosinophils % (auto) 1.5 %; Hematocrit (blood only) 27.1 % (42.0-52.0); Hemoglobin 9.5 g/dl (14.0-18.0); Immature Granulocytes # (auto) 0.11 K/uL (0.01-0.20); Immature Granulocytes % (auto) 1.6 %; Lymphocytes # (auto) 0.83 K/uL (1.20-3.40); Lymphocytes % (auto) 12.3 %; Mean Corpuscular Hemoglobin 34.1 pg (25.0-34.0); Mean Corpuscular Hgb Conc 35.1 g/dL (32.0-36.0); Mean Corpuscular Volume 97.1 fL (80.0-100.0); Monocytes # (auto) 0.68 K/uL (0.11-0.59); Monocytes % (auto) 10.1 %; Neutrophils # (auto) 5.01 K/uL (1.40-6.50); Neutrophils % (auto) 74.2 %; Nucleated RBC # (auto) 0.02 K/uL (0.00-0.12); Nucleated RBC % (auto) 0.3 %; Platelet Count 112 K/uL (130-400); RDW Coefficient of Variation 16.4 % (11.5-14.5); RDW Standard Deviation 58.4 fL (36.4-46.3); Red Blood Count 2.79 M/uL (4.70-6.10); White Blood Count 6.75 K/ul (4.8-10.8)
[2023-08-15 06:46] LABS: Bilirubin,Total 1.8 mg/dl (0.2-1.0); Calcium 8.3 mg/dl (8.6-10.3); Creatinine Clr Calc Pharmacy 81.6 ml/min; Est GFR (African American) 95.1 ml/min; Potassium 3.3 mmol/L (3.5-5.1)
[2023-08-15 06:47] LABS: Albumin Globulin Ratio 1.1 (0.9-2); Albumin Level 3.2 gm/dl (3.4-5.0); Globulin 2.8 gm/dl (2.5-4.0)
[2023-08-15 08:20] LABS: Magnesium 1.4 mg/dl (1.7-2.4)
--- NOTE | 2023-08-15 09:34 | Hospitalist Progress Note ---
Date of Service August 15, 2023 Assessment & Plan (1) Alcohol withdrawal: Plan: Metabolic encephalopathy -Patient reported he drinks 1 pint of vodka daily, last drink at 6pm on 08/10. -Reports witnessed (by girlfriend) ?seizure a few days prior to admission, girlfriend reported that possible seizure occurred on 08/10 prior to glycerin operator arrival - Etoh level on admission <10 -Has been on naltrexone, disulfiram in the past but has not taken in some time. Has previously been to [facility]/rehab. 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, fell off toilet and hit head/face -> CT Head/C-spine/Abd without acute findings Acute worsening overnight into 08/13, reported DTs --> Stopped Ativan and Gabapentin protocol, and started Phenobarbital protocol - Lopressor 5mg q6h - Clonidine patch added Director Security Risk Management consulted - Recommended giving the patient ETOH, however patient currently cannot respond to commands and is NPO and do not feel this is safe - Recommend diuresis - 40mg IV ordered by health and physical education teacher - abx stopped by health and physical education teacher, however + UC and procal so these will be restarted Placed IV fluids on hold 08/13, given 40mg IV lasix by health and physical education teacher Continue folic Acid --> converting to IV daily, added B12 IM Thiamine increased to 500 mg IV TID x 6 doses --> completed, now 200 mg IV BID Psych consult - 302 warrant denied , however at this time NOT having capacity to leave AMA 08/14 Remains sedated on phenobarbital, RAAS -3 most recently. No further DTs observed Continues NPO, not safe for PO intake at present Nutrition consulted K/magnesium replacement ordered, ordered gentle IVF @ 60cc/hr with 20meq kcl with reduced PO intake. Can give additional lasix once more alert/taking PO if needed (was given 40mg IV x 1 on 08/13) Clonidine patch for HTN, hydralazine IV also ordered Abx for UTI: Unasyn IV discontinued, switching to Cefazolin given urine cx ecoli w/ resistance to Unasyn consider IV synthroid if remaining nothing by mouth given TSH to 25 on admission (2) Adjustment disorder with depressed mood: Plan: last seen by PCP for this 01/2023 - documented not controlled, increased lexapro to 20mg - denies suicidal thoughts following, now reduced consciousness Psych on consult/following (3) UTI (urinary tract infection): Plan: 3 urine culture with gram negative bacilli - + procal 0.57 IV Unasyn ordered, switching to Ancef 3/5 in IV given NPO at present and can convert to PO once more awake/taking PO (4) Acute kidney injury: Plan: Cr at 1.77 on admission, baseline from prior labs appears to be ~1.1 1L IVF in ER, HCTZ placed on hold and continuous IVF through 3/4 w/ volume overload and placed on hold w/ IV lasix put out ~3L w/ IV dose of lasix Cr down to 1.0 on AM labs, continue without HCTZ --> urine slight dark in color 08/14 and no PO intake. Resumed gentle IVF as above Monitor BMP (5) Hypokalemia: Plan: 3.1 on arrival, additional PO/IV ordered and remaining low on AM labs at 3.3 and 2 K riders ordered and placed 20meq to IVF Mag checked for completeness, 1.4 and IV replacement ordered BMP/mag in AM (6) Hypomagnesemia: Plan: checked again for stability/tachycardia --> LOW again at 1.4, 3gm IV ordered and will monitor in AM K replacement as above (7) Thrombocytopenia: Plan: Platelets 125 on arrival Decreased to 104 --> 92 --> 112 Suspect in the setting of increasing LFTs/ETOh abuse Follow AM CBC (8) Anemia: Plan: Hgb 13.2 on arrival --> 10.8 --> 9.3 --> 9.5 following IVF - Baseline 15, suspect some component of dilution and phlebotomy - no evidence of bleeding currently - Heme occult stool negative - B12 > 1500 - Iron studies without iron deficiency - Transition PPI to IV BID and continue IV for now while NPO Trend CBC (9) Elevated LFTs: Plan: -MELD score calculated: 17 on admission -AST, ALT, alk phos and bili elevated from prior tests, likely secondary to ongoing alcohol consumption - hepatic steatosis with possible early cirrhosis seen on CT A/P 3/3 LFTs increasing, discriminant function 4.4, no indication for steroids at this time 3/4 LFTs improving however slightly WORSE today and will monitor w/ IVF Follow AM CMP (10) Hypothyroidism: Plan: TSH on admission elevated to 25 -Unsure if patient has been taking medication as prescribed, may need to repeat as outpatient and adjust home dosage -Continue levothyroxine 125mcg daily --MISSED PAST TWO DAYS GIVEN NPO, may require dose IV. will repeat TSH/T4 w/ AM labs (11) Hyperlipidemia: Plan: Continue Atorvastatin, Ezetimibe when taking PO (12) Hypertension: Plan: Valsartan continued (as able w/ BP) HCTZ on hold with EARLINE , decreased PO intake Metoprolol and clonidine added to treat hypertension secondary to ETOH withdrawal , hydralazine IV available today given BP elevated but better, currently 147/101 Plan Dispo: continued inpatient stay DVT Proh: SCDs, (hold on heparin given thrombocytopenia, and lovenox given EARLINE) significant other updated at bedside 3/4 (per nurse, visited this morning) Admission and Anticipated Discharge Date Admission Date: August 12, 2023 Supervising Physician Co-Signing Physician Notes The patient was not seen by me. The chart was reviewed. Case discussed with HAMZAH Dee. Agree with assessment and plan Subjective Evaluated this morning. Remains sedated on phenobarbital. GF visited this morning, information shared with ex- w/ code word as needed (they have children together). Put out ~3L with one time dose of IV lasix yesterday, HRs improved but BP elevated. On clonidine patch, hydralazine added IV. Continues without PO status due to safety. Adding IVF at low rate, urine concentrated. Electrolyte replacement ordered. Urine cx w/ ecoli w/ resistance to Unasyn/ampicillin, switching to Cefazolin IV. Physical Exam Physical Exam: General: 58 yo male laying in bed, seizure pads in place, reduced level of consciousness on phenobarbital but NAD HEENT: head atraumatic, normocephalic, mm slightly dry, trachea midline, CO2 probe in place Resp: even/unlabored, slightly diminished in the bases, no tachypnea (prior RN reported elevated RR previously), on 1L NC CV: RRR, slightly tachy to low 100s at times but maintaining 90s, no significant m/r/g, trace pedal edema GI :+BS, slight distension, nontender : catheter draining slightly concentrated yellow urine/slight pink tinge MSK/Neuro/psych: not able to follow commands due to mental status Results & Data Results & Data Vital Signs (Past 12 Hours) Vital Signs Temp Pulse Pulse Resp BP BP BP 08/15/23 07:43 08/15/23 07:20 37.2 C 90 19 150/110 H 08/15/23 06:11 80 149/106 H 08/15/23 05:37 85 151/115 H 08/15/23 05:34 85 36 H 151/115 H 08/15/23 02:45 37 C 86 32 H 145/109 H 08/15/23 00:34 85 154/108 H 08/15/23 00:01 93 H 143/110 H 08/14/23 23:56 93 H 32 H 143/110 H 08/14/23 22:01 96 H Pulse Ox O2 Del Method O2 Flow Rate 08/15/23 07:43 Nasal Cannula 2 08/15/23 07:20 99 Nasal Cannula 2 08/15/23 06:11 08/15/23 05:37 08/15/23 05:34 93 Room Air 08/15/23 02:45 94 Room Air 08/15/23 00:34 08/15/23 00:01 08/14/23 23:56 92 Room Air 08/14/23 22:01 Laboratory Results 08/15/23 08/14/23 Range/Units 06:02 14:35 WBC 6.75 (4.8-10.8) K/ul RBC 2.79 L (4.70-6.10) M/uL Hgb 9.5 L (14.0-18.0) g/dl Hct 27.1 L (42.0-52.0) % MCV 97.1 (80.0-100.0) fL MCH 34.1 H (25.0-34.0) pg MCHC 35.1 (32.0-36.0) g/dL RDW Std Deviation 58.4 H (36.4-46.3) fL RDW Coeff of Joshua 16.4 H (11.5-14.5) % Plt Count 112 L (130-400) K/uL MPV 11.0 (9.4-12.4) fL Immature Gran % (Auto) 1.6 % Neut % (Auto) 74.2 % Lymph % (Auto) 12.3 % Elbert % (Auto) 10.1 % Eos % (Auto) 1.5 % Baso % (Auto) 0.3 % Neut # (Auto) 5.01 (1.40-6.50) K/uL Lymph # (Auto) 0.83 L (1.20-3.40) K/uL Elbert # (Auto) 0.68 H (0.11-0.59) K/uL Eos # (Auto) 0.10 (0.00-0.50) K/uL Baso # (Auto) 0.02 (0.00-0.20) K/uL Immature Gran # (Auto) 0.11 (0.01-0.20) K/uL Absolute Nucleated RBC 0.02 (0.00-0.12) K/uL Nucleated RBC % (auto) 0.3 % ABG pH 7.48 H (7.35-7.45) ABG pCO2 33 L (35-46) mmHg ABG pO2 77 L (80-95) mmHg ABG HCO3 25 H (19-24) mmol/L ABG O2 Saturation 97.3 H (90-95) % ABG Base Excess 1.3 (-9-1.8) mEq/L Binh Test Pos (Pos) VBG pH 7.51 H (7.36-7.41) VBG pCO2 35 L (38-50) mmHg VBG pO2 73 mmHg VBG HCO3 28 mmol/L VBG O2 Saturation 96.8 % VBG Base Excess 4.9 mEq/L Oxygen Given ROOM AIR Sodium 137 (136-145) mmol/L Potassium 3.3 L (3.5-5.1) mmol/L Chloride 101 (98-107) mmol/L Carbon Dioxide 25 (21-32) mmol/L Anion Gap 11 (3-11) BUN 15 (6-23) mg/dl Creatinine 1.00 (0.6-1.4) mg/dl Est Cr Clr Drug Dosing 81.6 ml/min Est GFR ( Amer) 95.1 ml/min Est GFR (Non-Af Amer) 82.0 ml/min BUN/Creatinine Ratio 15.0 (10-20) Glucose 84 (70-99(Fasting)) mg/dl Lactate 0.8 (0.4-2.0) mmol/L Calcium 8.3 L (8.6-10.3) mg/dl Magnesium 1.4 L (1.7-2.4) mg/dl Total Bilirubin 1.8 H (0.2-1.0) mg/dl AST 321 H (13-39) U/L ALT 249 H (7-52) U/L Alkaline Phosphatase 240 H (34-104) U/L Ammonia 35.0 (18-72) umol/L Total Protein 6.0 (6.0-8.3) gm/dl Albumin 3.2 L (3.4-5.0) gm/dl Globulin 2.8 (2.5-4.0) gm/dl Albumin/Globulin Ratio 1.1 (0.9-2) Procalcitonin 0.53 H (0-0.5) ng/ml PG Care Time/CCT Total # of Minutes Spent Total Time Spent with Patient: Total time spent is greater than 50% in coordination of care (as documented) at patient's floor/unit and/or counseling patient: Coding Level of Care Code 32205 SUB INP/OBS CARE 3/50MIN Diagnoses Alcohol withdrawal F10.939 Adjustment disorder with depressed mood F43.21 UTI (urinary tract infection) N39.0 Acute kidney injury N17.9 Hypokalemia E87.6 Hypomagnesemia E83.42 Thrombocytopenia D69.6 Anemia D64.9 Elevated LFTs R79.89 Hypothyroidism E03.9 Hyperlipidemia E78.5 Hypertension I10
[2023-08-15] MEDS: MAGNESIUM SULFATE / D5W 1 GM/100 ML BAG IV SCH (09:58)
[2023-08-15] MEDS: POTASSIUM CHLORIDE / WTR 10 MEQ/100 ML PLCT IV SCH (09:58)
[2023-08-15] MEDS: ceFAZolin 2000MG 2,000 MG/15 ML SYR IV SCH (11:38)
[2023-08-15] MEDS: NSS + 20MEQ KCL 20 MEQ/1,000 ML BAG IV SCH (11:38)
[2023-08-15] MEDS: FOLIC ACID 1 MG in SYRINGE 9.8 ML IV SCH (12:14)
[2023-08-15] MEDS: hydrALAZINE HCL 20 MG/ML VIAL IV PRN ×2 (13:39→20:39)
[2023-08-15] MEDS: PHENobarbital sodium 65 MG/ML VIAL IM PRN (20:27)
[2023-08-15] MEDS ORDERED: GABAPENTIN 600 MG TAB PO SCH (20:45)
--- NOTE | 2023-08-16 07:29 | XRay Report ---
XR chest 1V portable CLINICAL HISTORY: f/u aspiration/atelectasis TECHNIQUE: Single frontal radiograph of the chest was obtained. Comparison: Comparison is made to chest radiograph 08/13/2023 FINDINGS: No lines and tubes are seen. The cardiomediastinal silhouette is normal. Lungs are better aerated on today's exam, previously noted left midlung and right upper lung remain but are less conspicuous. No evidence of pleural effusion or pneumothorax. IMPRESSION: Lungs are better aerated with improvement of bilateral airspace opacities. These may represent atelec tasis, pneumonia, and/or aspiration. ACT 112: Negative or not required by law. Electronically signed by: David Owusu M.D. 08/16/2023 7:28 AM
[2023-08-16] MEDS: CYANOCOBALAMIN 1000 MCG/ML VIAL IM SCH (07:45)
--- NOTE | 2023-08-16 07:45 | Hospitalist Progress Note ---
Date of Service August 16, 2023 Assessment & Plan (1) Alcohol withdrawal: Plan: Metabolic encephalopathy Patient reporting drinking pint of vodka daily (actually a fifth on further questioning) with last drink 08/10 around 6pm. Has previously been to [facility]/rehab. Was going to therapy at [facility] but stopped in the last month, without a reason (s/o thinks related to Losing his job) Had been on naltrexone, disulfiram in past but not taken in some time on admission (however PCP noting did have recent fill) Etoh on admission <10 Witnessed seizure on admission 08/11 inpatient and reports of ?witnessed seizure few days prior to admission witnessed by GF possible? CT head/c-scope/abdomen without acute findings following fall Initially on ativan protocol however switched to Phenobarbitol protocol (got 130mg IM x 1 dose on 08/13) and nothing on 08/14 but again repeated this morning for 65mg IM x 1 dose and appearing stable but fatigued/falling back asleep quickly Procedure Analyst consulted for consideration for precedex, recommended giving etoh, however reduced LOC/unsafe and NPO at present time. --> Was provided lasix 40mg IV x 1 on 08/13 for diuresis (~3L output reported) but had been NPO on 08/14 and gentle IVF + 20meq KCL provided overnight -- Clonidine patch ordered for HTN, hydralazine available prn (currently BP 123/88) Abx switched to cefazolin 08/14 to cover for ecoli UTI resistant to Unasyn which he was previously on Continue folic acid, B12. Thiamine IV TID x 6 doses and remains on IV continued K/magnesium replacement, also checked phos and ordered dose of K phos for today (08/15) and will monitor electrolyte on repeat Stopping further IVF for today and will see about trial of diet for this evening with supervision CXR w/ improvement in aeration, ?atelectasis vs aspiration vs pneumonia -- supplemental O2 to maintain sats and will monitor WBC wnl, afebrile TSH checked and further elevated to 30s (T4/t3 wnl) and will plan for dose IV if unable to take his PO in AM Continued monitoring on telemetry (2) Adjustment disorder with depressed mood: Plan: last seen by PCP for this 01/2023 - documented not controlled, increased lexapro to 20mg however unclear if he was actually taking this Psych on consult/to follow while inpatient Denies any SI/HI at present but does have reduced level of consciousness 2nd to medications for above (3) UTI (urinary tract infection): Plan: Urine cx w/ ecoli resistant to unasyn as above and switched abx to Ancef given NPO status for now and can convert to PO once PO intake improves/safe Monitor UOP (4) Acute kidney injury: Plan: Cr 1.7 on admit w/ ~1.1 baseline s/p 1L IVF in ER and continuous IVF on admission, now s/p IV lasix and did provide gentle IVF 08/14-08/15 @ 60cc/hr given NPO/cognitive status BUN/Cr stable at 14/0.85 at present Home HCTZ on hold, monitor Urine looking senior clinical data coordinator in color (was darkened on 08/14) and abx for UTI coverage as above Renal dose meds as needed/avoid nephrotoxins as able Monitor BMP (5) Hypokalemia: Plan: 3.1 on arrival, additional PO/IV ordered and remaining low on repeat labs and was given K riders and added to IVF. mag checked/low as below and replacement ordered K 3.4 and K rider as well as K phos ordered and monitor labs in AM (6) Hypomagnesemia: Plan: checked again for stability/tachycardia and was LOW 1.4 on 08/14 and 3gm IV ordered and repeat still low at 1.6 --> additional IV ordered for today and will monitor on repeat (7) Thrombocytopenia: Plan: Platelets 125 on arrival Decreased to 104 --> 92 --> 112 --> IMPROVED and stable at 144 Suspect in the setting of increasing LFTs/ETOh abuse Follow (8) Anemia: Plan: Hgb 13.2 on arrival --> 10.8 --> 9.3 --> 9.5 following IVF and repeat w/ additional IVF stable at 9.5. IVF stopped Suspect some aspect of dilutional and repeat phlebotomy, no evidence of bleeding at present. FOCB NEGATIVE B12 >1500, no iron deficiency on iron studies Continue PPI BID for now given NPO and likely underlying gastritis from drinking TSH elevated on check --> see below Monitor CBC in am/any bleeding (9) Elevated LFTs: Plan: MELD score calculated@17 on admission (currently MELD 7 on 08/15) -AST, ALT, alk phos and bili elevated from prior tests, likely secondary to ongoing alcohol consumption - hepatic steatosis with possible early cirrhosis seen on CT A/P 08/12 LFTs increasing, discriminant function 4.4, no indication for steroids at this time 08/13 LFTs improving however slightly WORSE today and will monitor w/ IVF IVF ordered on 08/14 as outlined above --> LFTS w/ TB 1.8--> 1.2. AST 321--> 224, ALT 249-> 172 however ALP 240--> 252 --> IVF stopped Of note, does have possible biliary sludge but denied any abdominal pain on exam and will monitor Consider obtaining RUQ US for further eval if TB/ALP remaining elevated Hepatitis panel pending Monitor LFTs in AM (10) Hypothyroidism: Plan: TSH on admission elevated to 25 -Unsure if patient has been taking medication as prescribed, may need to repeat as outpatient and adjust home dosage Orders to continue levothyroxine 125mcg daily however given NPO had missed past 3 days --> TSH to 30 on repeat but normal T4/t3 and hopefully able to take PO by tomorrow morning but will consider dose of IV if needed Suspect he hadn't been taking as directed at home, likely contributing to worsened cognitive exam in setting of alcohol use Also suspect contributing to his anemia/tachycardia (however has been NSR/no arrhythmia on monitor at present time) (11) Hyperlipidemia: Plan: Continue Atorvastatin, Ezetimibe as able (12) Hypertension: Plan: Valsartan continued (as able w/ BP) HCTZ on hold with EARLINE , decreased PO intake and NPO as above Metoprolol and clonidine added to treat hypertension secondary to ETOH withdrawal , hydralazine IV available today given BP elevated but better, currently 123/88 Plan Dispo: continued inpatient stay DVT Proh: SCDs in place (hold on heparin given thrombocytopenia, and lovenox given EARLINE) significant other updated at bedside 08/13 Admission and Anticipated Discharge Date Admission Date: August 12, 2023 Supervising Physician Co-Signing Physician Notes The patient was not seen by me. The chart was reviewed. Case discussed with HAMZAH Dee. Agree with assessment and plan Subjective Evaluated this afternoon around lunch. More awake today but back and forth. Discussed diet -- he is hungry. Will discuss if more awake will attempt. Knows august, in [facility], initially said 2013 but easily reoriented to 2023. Moving bowels. No chest pain/shortness of breath. Does appear to have periods of apnea but denied SUZI at baseline but will check overnight pulse ox study as well. Was provided additional dose of phenobarbital overnight for agitation and remaining calm at present. VSS 123/88, 70-90s on monitor NSR, 96%on 2L but currently on room air. Physical Exam Physical Exam: General: 58 yo male laying in bed, seizure pads in place, reduced level of consciousness however able to be aroused more easily today however does go in/out of sleeping but NAD HEENT: head atraumatic, normocephalic, mm slightly dry, , trachea midline, +thick neck Resp: even/unlabored, slightly diminished in the bases, no tachypnea, on room air at present (occassionally 2L) CV: RRR, no significant m/r/g, trace pedal edema GI :+BS, no further significant distension, nontender : catheter draining slightly concentrated urine MSK/Neuro/psych: not able to follow commands due to mental status alert to person, knows in [facility], year 2013 vs 2023, cooperative slightly tremulous at times Results & Data Results & Data Vital Signs (Past 12 Hours) Vital Signs Temp Pulse Pulse Resp BP BP BP 08/16/23 05:26 84 125/95 08/16/23 05:05 102 H 149/96 H 08/16/23 05:03 105 H 32 H 149/96 H 08/16/23 04:24 106 H 127/99 08/16/23 02:57 36.8 C 85 26 H 148/106 H 08/16/23 02:07 87 138/98 08/15/23 23:43 08/15/23 22:57 36.6 C 97 H 22 145/99 H 08/15/23 20:27 99 H 22 152/106 H Pulse Ox O2 Del Method O2 Flow Rate 08/16/23 05:26 08/16/23 05:05 08/16/23 05:03 08/16/23 04:24 08/16/23 02:57 97 Nasal Cannula 08/16/23 02:07 08/15/23 23:43 Nasal Cannula 2 03/05/24 22:57 97 Nasal Cannula 08/15/23 20:27 Laboratory Results 08/16/23 Range/Units 07:48 WBC 6.36 (4.8-10.8) K/ul RBC 2.81 L (4.70-6.10) M/uL Hgb 9.5 L (14.0-18.0) g/dl Hct 28.4 L (42.0-52.0) % MCV 101.1 H (80.0-100.0) fL MCH 33.8 (25.0-34.0) pg MCHC 33.5 (32.0-36.0) g/dL RDW Std Deviation 64.6 H (36.4-46.3) fL RDW Coeff of Joshua 17.3 H (11.5-14.5) % Plt Count 144 (130-400) K/uL MPV 11.0 (9.4-12.4) fL Absolute Nucleated RBC 0.02 (0.00-0.12) K/uL Nucleated RBC % (auto) 0.3 % PT 11.4 (9.0-12.0) Seconds INR 1.0 (0.9-1.1) Sodium 139 (136-145) mmol/L Potassium 3.4 L (3.5-5.1) mmol/L Chloride 105 (98-107) mmol/L Carbon Dioxide 24 (21-32) mmol/L Anion Gap 10 (3-11) BUN 14 (6-23) mg/dl Creatinine 0.85 (0.6-1.4) mg/dl Est Cr Clr Drug Dosing 97.4 ml/min Est GFR ( Amer) 110.5 ml/min Est GFR (Non-Af Amer) 95.4 ml/min BUN/Creatinine Ratio 16.5 (10-20) Glucose 87 (70-99(Fasting)) mg/dl Estimat Average Glucose 128 mg/dl Hemoglobin A1c 6.1 H (4.5-5.6) % Calcium 8.0 L (8.6-10.3) mg/dl Phosphorus 1.6 L (2.5-4.9) mg/dl Magnesium 1.6 L (1.7-2.4) mg/dl Total Bilirubin 1.2 H (0.2-1.0) mg/dl Direct Bilirubin 0.6 H (0-0.2) mg/dl AST 224 H (13-39) U/L ALT 172 H (7-52) U/L Alkaline Phosphatase 252 H (34-104) U/L Total Protein 6.0 (6.0-8.3) gm/dl Albumin 3.1 L (3.4-5.0) gm/dl TSH 30.719 H (0.300-4.500) uIu/ml Free T4 0.71 (0.61-1.60) ng/dl Free T3 2.63 (2.3-4.2) pg/ml Hepatitis A IgM Ab Pending Hep Bs Antigen Pending Hep Bs Ag Confirmation Pending Hep B Core IgM Ab Pending Hepatitis C Ab (EIA) Pending Diagnostic Findings Chest X-Ray 08/16/23 06:30 XR chest 1V portable CLINICAL HISTORY: f/u aspiration/atelectasis TECHNIQUE: Single frontal radiograph of the chest was obtained. Comparison: Comparison is made to chest radiograph 08/13/2023 FINDINGS: No lines and tubes are seen. The cardiomediastinal silhouette is normal. Lungs are better aerated on today's exam, previously noted left midlung and right upper lung remain but are less conspicuous. No evidence of pleural effusion or pneumothorax. IMPRESSION: Lungs are better aerated with improvement of bilateral airspace opacities. These may represent atelectasis, pneumonia, and/or aspiration. ACT 112: Negative or not required by law. Electronically signed by: David Owusu M.D. 08/16/2023 7:28 AM PG Care Time/CCT Total # of Minutes Spent Total Time Spent with Patient: Total time spent is greater than 50% in coordination of care (as documented) at patient's floor/unit and/or counseling patient: Coding Level of Care Code 21619 SUB INP/OBS CARE 3/50MIN Diagnoses Alcohol withdrawal F10.939 Adjustment disorder with depressed mood F43.21 UTI (urinary tract infection) N39.0 Acute kidney injury N17.9 Hypokalemia E87.6 Hypomagnesemia E83.42 Thrombocytopenia D69.6 Anemia D64.9 Elevated LFTs R79.89 Hypothyroidism E03.9 Hyperlipidemia E78.5 Hypertension I10
[2023-08-16 08:14] LABS: Hematocrit (blood only) 28.4 % (42.0-52.0); Hemoglobin 9.5 g/dl (14.0-18.0); Mean Corpuscular Hemoglobin 33.8 pg (25.0-34.0); Mean Corpuscular Hgb Conc 33.5 g/dL (32.0-36.0); Mean Corpuscular Volume 101.1 fL (80.0-100.0); Nucleated RBC # (auto) 0.02 K/uL (0.00-0.12); Nucleated RBC % (auto) 0.3 %; Platelet Count 144 K/uL (130-400); RDW Coefficient of Variation 17.3 % (11.5-14.5); RDW Standard Deviation 64.6 fL (36.4-46.3); Red Blood Count 2.81 M/uL (4.70-6.10); White Blood Count 6.36 K/ul (4.8-10.8)
[2023-08-16 08:22] LABS: Estimated Average Glucose 128 mg/dl; Hemoglobin A1C 6.1 % (4.5-5.6)
[2023-08-16 08:41] LABS: Albumin Level 3.1 gm/dl (3.4-5.0); BUN Creatinine Ratio 16.5 (10-20); Bilirubin Direct 0.6 mg/dl (0-0.2); Bilirubin,Total 1.2 mg/dl (0.2-1.0); Creatinine Clr Calc Pharmacy 97.4 ml/min; Est GFR (African American) 110.5 ml/min; Est GFR (Non-African American) 95.4 ml/min; Magnesium 1.6 mg/dl (1.7-2.4); Phosphorus 1.6 mg/dl (2.5-4.9); Potassium 3.4 mmol/L (3.5-5.1)
[2023-08-16 08:46] LABS: Prothrombin Time 11.4 Seconds (9.0-12.0)
[2023-08-16 08:55] LABS: Thyroid Stimulating Hormone 30.719 uIu/ml (0.300-4.500)
[2023-08-16] MEDS: POTASSIUM CHLORIDE / WTR 10 MEQ/100 ML PLCT IV ONE (09:20)
[2023-08-16] MEDS: MAGNESIUM SULFATE / D5W 1 GM/100 ML BAG IV SCH (09:20)
[2023-08-16 09:30] LABS: T4 Free Thyroxine 0.71 ng/dl (0.61-1.60)
[2023-08-16] MEDS ORDERED: POTASSIUM PHOS 3 MMOL/1 ML INFUSION IV STA (12:03)
[2023-08-16] MEDS: POTASSIUM PHOSPHATE 15 MMOL in SODIUM CHLORIDE 0.9% 250 ML IV ONE (12:36)
[2023-08-16] MEDS: PHENobarbital sodium 65 MG/ML VIAL IM PRN (20:46)
[2023-08-17] MEDS: NICOTINE 14 MG/24 HR PATCH TD SCH (01:30)
[2023-08-17 06:54] LABS: Hematocrit (blood only) 25.6 % (42.0-52.0); Hemoglobin 8.9 g/dl (14.0-18.0); Mean Corpuscular Hemoglobin 34.2 pg (25.0-34.0); Mean Corpuscular Hgb Conc 34.8 g/dL (32.0-36.0); Mean Corpuscular Volume 98.5 fL (80.0-100.0); Mean Platelet Volume 10.9 fL (9.4-12.4); Platelet Count 165 K/uL (130-400); RDW Coefficient of Variation 17.7 % (11.5-14.5); RDW Standard Deviation 63.8 fL (36.4-46.3); White Blood Count 6.12 K/ul (4.8-10.8)
[2023-08-17 07:26] LABS: Albumin Globulin Ratio 1.1 (0.9-2); BUN Creatinine Ratio 11.2 (10-20); Calcium 8.1 mg/dl (8.6-10.3); Creatinine Clr Calc Pharmacy 92.9 ml/min; Est GFR (African American) 108.5 ml/min; Est GFR (Non-African American) 93.6 ml/min; Globulin 2.7 gm/dl (2.5-4.0); Magnesium 1.5 mg/dl (1.7-2.4); Potassium 3.3 mmol/L (3.5-5.1); Total Protein 5.7 gm/dl (6.0-8.3)
--- NOTE | 2023-08-17 07:55 | Hospitalist Progress Note ---
Date of Service August 17, 2023 Assessment & Plan (1) Alcohol withdrawal: Plan: Metabolic encephalopathy Patient reporting drinking pint of vodka daily (actually a fifth on further questioning) with last drink 08/10 around 6pm. Has previously been to [facility]/rehab. Was going to therapy at [facility] but stopped in the last month, without a reason (s/o thinks related to Losing his job) Had been on naltrexone, disulfiram in past but not taken in some time on admission (however PCP noting did have recent fill) Etoh on admission <10 Witnessed seizure on admission 08/11 inpatient and reports of ?witnessed seizure few days prior to admission witnessed by GF possible? CT head/c-scope/abdomen without acute findings following fall Initially on ativan protocol however switched to Phenobarbitol protocol (got 130mg IM x 1 dose on 08/13) and nothing on 08/14 but again repeated this morning for 65mg IM x 1 dose and appearing stable but fatigued/falling back asleep quickly Blood Bank Custodian consulted for consideration for precedex, recommended giving etoh, however reduced LOC/unsafe and NPO at present time. --> Was provided lasix 40mg IV x 1 on 08/13 for diuresis (~3L output reported) but had been NPO on 08/14 and gentle IVF + 20meq KCL provided overnight -- Clonidine patch ordered for HTN, hydralazine available prn (currently BP 123/88) Abx switched to cefazolin 08/14 to cover for ecoli UTI resistant to Unasyn which he was previously on Continue folic acid, B12. Thiamine IV TID x 6 doses and remains on IV continued K/magnesium replacement, also checked phos and ordered dose of K phos for today (08/15) and will monitor electrolyte on repeat Stopped further IVF for 08/15 and will see about trial of diet for this evening with supervision CXR w/ improvement in aeration, ?atelectasis vs aspiration vs pneumonia -- supplemental O2 to maintain sats and will monitor WBC wnl, afebrile TSH checked and further elevated to 30s (T4/t3 wnl) and will plan for dose IV if unable to take his PO in AM Continued monitoring on telemetry 08/16 Was given one dose of phenobarbital 65mg last evening around 20:46 and remaining calm Given soft/bite size diet, tolerating. K 3.3, PO replacement ordered. Mag 1.5 and additional IV magnesium replacement ordered. TB now wnl, AST/ALT/ALP trending down compared to yesterday Eating soft/bite size diet Valsartan resumed for HTN now that taking PO. Labetalol transitioned to metoprolol tartrate 12.5mg BID for now. Monitor ability to dc clonidine vs metoprolol . Have been giving hydralazine prn as well Continue ancef for now given unreliable PO intake however for UTI coverage. 97% on room air PT consult placed (did get up to bedside commode w/ nursing yesterday and reportedly did fairly well) (2) Adjustment disorder with depressed mood: Plan: last seen by PCP for this 01/2023 - documented not controlled, increased lexapro to 20mg however unclear if he was actually taking this Psych on consult/to follow while inpatient Denies any SI/HI at present but does have reduced level of consciousness 2nd to medications for above (3) UTI (urinary tract infection): Plan: Urine cx w/ ecoli resistant to unasyn as above and switched abx to Ancef given NPO status for now and can convert to PO once PO intake improves/safe Monitor UOP (4) Acute kidney injury: Plan: Cr 1.7 on admit w/ ~1.1 baseline s/p 1L IVF in ER and continuous IVF on admission, now s/p IV lasix and did provide gentle IVF 08/14-36 @ 60cc/hr given NPO/cognitive status BUN/Cr stable 10/.89, no further IVF HCTZ remaining on hold but improvement in PO intake Urine slight dark tinge (from bili 2nd to liver/alcohol use) Renal dose meds/avoid nephrotoxins as able Resumed valsartan for BP control BMP in AM (5) Hypokalemia: Plan: additional replacement ordered, mag IV HCTZ remains on hold BMP in AM (6) Hypomagnesemia: Plan: IV magnesium ordered again for today -- hopefully w/ continued improvement in PO intake will normalize BMP in AM (7) Thrombocytopenia: Plan: Platelets 125 on arrival Decreased to 104 --> 92 --> 112 --> IMPROVED and stable at 144 Suspect in the setting of increasing LFTs/ETOh abuse Follow (8) Anemia: Plan: Hgb 13.2 on arrival --> 10.8 --> 9.3 --> 9.5 following IVF and repeat w/ additional IVF stable at 9.5. IVF stopped but 8.9 on repeat Suspect some aspect of dilutional and repeat phlebotomy, no evidence of bleeding at present. FOCB NEGATIVE B12 >1500, no iron deficiency on iron studies Continue PPI BID for now given NPO and likely underlying gastritis from drinking TSH elevated on check --> see below Monitor CBC in am/any bleeding (9) Elevated LFTs: Plan: MELD score calculated@17 on admission (currently MELD 7 on 08/15) -AST, ALT, alk phos and bili elevated from prior tests, likely secondary to ongoing alcohol consumption - hepatic steatosis with possible early cirrhosis seen on CT A/P 08/12 LFTs increasing, discriminant function 4.4, no indication for steroids at this time 08/13 LFTs improving however slightly WORSE today and will monitor w/ IVF IVF ordered 08/14 w/ slight worsening in ALP to 252, stopped and taking PO Hepatitis panel pending LFTs IMPROVED ON REPEAT TESTING AND WILL CONTINUE TO MONITOR. NO RUQ pain on exam (10) Hypothyroidism: Plan: TSH on admission elevated to 25 -Unsure if patient has been taking medication as prescribed, may need to repeat as outpatient and adjust home dosage Orders to continue levothyroxine 125mcg daily however given NPO had missed past 3 days --> TSH to 30 on repeat but normal T4/t3 and now able to take PO. Consider IV if needed/not taking PO moving forward (11) Hyperlipidemia: Plan: Continue Atorvastatin, Ezetimibe as able (12) Hypertension: Plan: Valsartan held while NPO but initially continued (as able w/ BP) HCTZ on hold with EARLINE , will continue to hold for now Labetalol transitioned to metoprolol PO BID, continue clonidine Improvement in BPs initially however ongoing issues. Valsartan resumed and will monitor. Continue hydralazine as needed Plan Dispo: continued inpatient stay DVT Proh: SCDs in place (hold on heparin given thrombocytopenia, and lovenox given EARLINE) - no calf pain/edema today, pulses palpable PT evals ordered Admission and Anticipated Discharge Date Admission Date: August 12, 2023 Supervising Physician Co-Signing Physician Notes The patient was not seen by me. The chart was reviewed. Case discussed with HAMZAH Dee. Agree with assessment and plan Subjective Evaluated this morning around lunch time. Was gotten up out of bed to bedside last evening with 1-2 assist. Got dose phenobarbital overnight. Staying stable at present. Sleepy this morning but able to be awoken. No fever/chills, no chest pain or difficulty breathing. [place] with slightly concentrated urine (2nd to bilirubin), LFTs improving. Switching labetalol to metoprolol BID, BPs overall improved. Having some liquid stools, but no abdominal pain. Tolerating diet last night. Physical Exam Physical Exam: General: 58 yo male laying in bed, seizure pads in place, more awake today but tired from phenobarb overnight but able to answer more questions today -- knew where he was/month/year reported 2014 again though. reported tolerating diet Head atraumatic, normocephalic, mmm, trachea midline Resp: even/unlabored, diminished in the bases but no w/c/r, on room air CV: RRR, slight systolic murmur, trace pedal edema/calves nontender GI: +BS, slight distension but NONTENDER : slightly concentrated urine draining MSK/Neuro: nonfocal, DTRs intact, pupils equal/reactive to light. Able to follow commands as able when awake, no agitation, slight tremor Psych : alert to person/place, intermittent to year, more cooperative Results & Data Results & Data Vital Signs (Past 12 Hours) Vital Signs Temp Pulse Pulse Resp BP BP Pulse Ox 08/17/23 06:17 135/80 08/17/23 05:44 78 151/109 H 08/17/23 05:25 91 H 159/112 H 08/17/23 02:50 36.8 C 93 H 22 145/94 H 94 08/17/23 00:41 96 H 08/16/23 23:47 89 139/100 08/16/23 23:32 98 H 116/75 08/16/23 23:10 37 C 98 H 22 116/75 96 08/16/23 20:46 101 H 36 H 146/105 H 08/16/23 20:14 O2 Del Method O2 Flow Rate 08/17/23 06:17 08/17/23 05:44 08/17/23 05:25 08/17/23 02:50 Room Air 08/17/23 00:41 08/16/23 23:47 08/16/23 23:32 08/16/23 23:10 Room Air 08/16/23 20:46 08/16/23 20:14 Nasal Cannula 1 Laboratory Results 08/17/23 08/16/23 Range/Units 06:35 07:48 WBC 6.12 6.36 (4.8-10.8) K/ul RBC 2.60 L 2.81 L (4.70-6.10) M/uL Hgb 8.9 L 9.5 L (14.0-18.0) g/dl Hct 25.6 L 28.4 L (42.0-52.0) % MCV 98.5 101.1 H (80.0-100.0) fL MCH 34.2 H 33.8 (25.0-34.0) pg MCHC 34.8 33.5 (32.0-36.0) g/dL RDW Std Deviation 63.8 H 64.6 H (36.4-46.3) fL RDW Coeff of Joshua 17.7 H 17.3 H (11.5-14.5) % Plt Count 165 144 (130-400) K/uL MPV 10.9 11.0 (9.4-12.4) fL Absolute Nucleated RBC 0.02 (0.00-0.12) K/uL Nucleated RBC % (auto) 0.3 % PT 11.4 (9.0-12.0) Seconds INR 1.0 (0.9-1.1) Sodium 136 139 (136-145) mmol/L Potassium 3.3 L 3.4 L (3.5-5.1) mmol/L Chloride 105 105 (98-107) mmol/L Carbon Dioxide 24 24 (21-32) mmol/L Anion Gap 7 10 (3-11) BUN 10 14 (6-23) mg/dl Creatinine 0.89 0.85 (0.6-1.4) mg/dl Est Cr Clr Drug Dosing 92.9 97.4 ml/min Est GFR ( Amer) 108.5 110.5 ml/min Est GFR (Non-Af Amer) 93.6 95.4 ml/min BUN/Creatinine Ratio 11.2 16.5 (10-20) Glucose 100 H 87 (70-99(Fasting)) mg/dl Estimat Average Glucose 128 mg/dl Hemoglobin A1c 6.1 H (4.5-5.6) % Calcium 8.1 L 8.0 L (8.6-10.3) mg/dl Phosphorus 1.6 L (2.5-4.9) mg/dl Magnesium 1.5 L 1.6 L (1.7-2.4) mg/dl Total Bilirubin 1.0 1.2 H (0.2-1.0) mg/dl Direct Bilirubin 0.6 H (0-0.2) mg/dl AST 167 H 224 H (13-39) U/L ALT 111 H 172 H (7-52) U/L Alkaline Phosphatase 239 H 252 H (34-104) U/L Total Protein 5.7 L 6.0 (6.0-8.3) gm/dl Albumin 3.0 L 3.1 L (3.4-5.0) gm/dl Globulin 2.7 (2.5-4.0) gm/dl Albumin/Globulin Ratio 1.1 (0.9-2) TSH 30.719 H (0.300-4.500) uIu/ml Free T4 0.71 (0.61-1.60) ng/dl Free T3 2.63 (2.3-4.2) pg/ml Hepatitis A IgM Ab Pending Hep Bs Antigen Pending Hep Bs Ag Confirmation Pending Hep B Core IgM Ab Pending Hepatitis C Ab (EIA) Pending PG Care Time/CCT Total # of Minutes Spent Total Time Spent with Patient: Total time spent is greater than 50% in coordination of care (as documented) at patient's floor/unit and/or counseling patient: Coding Level of Care Code 59544 SUB INP/OBS CARE 3/50MIN Diagnoses Alcohol withdrawal F10.939 Adjustment disorder with depressed mood F43.21 UTI (urinary tract infection) N39.0 Acute kidney injury N17.9 Hypokalemia E87.6 Hypomagnesemia E83.42 Thrombocytopenia D69.6 Anemia D64.9 Elevated LFTs R79.89 Hypothyroidism E03.9 Hyperlipidemia E78.5 Hypertension I10
[2023-08-17] MEDS: POTASSIUM CHLORIDE CRTAB 20 MEQ TABCR PO STA (08:28)
[2023-08-17] MEDS: MAGNESIUM SULFATE / D5W 1 GM/100 ML BAG IV SCH (08:28)
[2023-08-17 11:42] LABS: HBSAG NON-REACTIVE (NON-REACTIVE); Hepatitis A Antibody IgM NON-REACTIVE (NON-REACTIVE); Hepatitis B Core Antibody IgM NON-REACTIVE (NON-REACTIVE)
[2023-08-17] MEDS ORDERED: VALSARTAN/HCTZ 320/12.5 MG TAB PO SCH (12:30)
[2023-08-17] MEDS ORDERED: VALSARTAN 80 MG TAB PO SCH (12:30)
[2023-08-17] MEDS: hydroCHLOROthiazide 25 MG TAB PO SCH (12:35)
[2023-08-17] MEDS: METOPROLOL TARTRATE 25 MG TAB PO SCH (20:35)
[2023-08-18 06:23] LABS: Albumin Level 2.9 gm/dl (3.4-5.0); BUN Creatinine Ratio 10.6 (10-20); Bilirubin Direct 0.3 mg/dl (0-0.2); Bilirubin,Total 0.7 mg/dl (0.2-1.0); Calcium 7.8 mg/dl (8.6-10.3); Creatinine Clr Calc Pharmacy 97.4 ml/min; Est GFR (African American) 110.5 ml/min; Est GFR (Non-African American) 95.4 ml/min; Magnesium 1.7 mg/dl (1.7-2.4); Phosphorus 2.5 mg/dl (2.5-4.9); Potassium 3.7 mmol/L (3.5-5.1); Total Protein 5.5 gm/dl (6.0-8.3)
[2023-08-18 06:26] LABS: Basophils # (auto) 0.03 K/uL (0.00-0.20); Basophils % (auto) 0.5 %; Eosinophils % (auto) 1.7 %; Hemoglobin 8.4 g/dl (14.0-18.0); Immature Granulocytes # (auto) 0.07 K/uL (0.01-0.20); Immature Granulocytes % (auto) 1.2 %; Lymphocytes # (auto) 0.84 K/uL (1.20-3.40); Lymphocytes % (auto) 14.6 %; Mean Corpuscular Hgb Conc 33.6 g/dL (32.0-36.0); Mean Corpuscular Volume 101.2 fL (80.0-100.0); Mean Platelet Volume 11.1 fL (9.4-12.4); Monocytes # (auto) 0.73 K/uL (0.11-0.59); Monocytes % (auto) 12.7 %; Neutrophils # (auto) 3.97 K/uL (1.40-6.50); Neutrophils % (auto) 69.3 %; Platelet Count 185 K/uL (130-400); RDW Coefficient of Variation 18.1 % (11.5-14.5); RDW Standard Deviation 67.1 fL (36.4-46.3); Red Blood Count 2.47 M/uL (4.70-6.10); White Blood Count 5.74 K/ul (4.8-10.8)
[2023-08-18 06:30] LABS: Prothrombin Time 10.9 Seconds (9.0-12.0)
--- NOTE | 2023-08-18 07:56 | Hospitalist Progress Note ---
Date of Service August 18, 2023 Assessment & Plan (1) Alcohol withdrawal: Plan: Metabolic encephalopathy Patient reporting drinking pint of vodka daily (actually a fifth on further questioning) with last drink 08/10 around 6pm. Has previously been to [facility]/rehab. Was going to therapy at [facility] but stopped in the last month, without a reason (s/o thinks related to Losing his job) Had been on naltrexone, disulfiram in past but not taken in some time on admission (however PCP noting did have recent fill) Etoh on admission <10 Witnessed seizure on admission 08/11 inpatient and reports of ?witnessed seizure few days prior to admission witnessed by GF possible? CT head/c-scope/abdomen without acute findings following fall Initially on ativan protocol however switched to Phenobarbitol protocol (got 130mg IM x 1 dose on 08/13) and nothing on 08/14 but again repeated this morning for 65mg IM x 1 dose and appearing stable but fatigued/falling back asleep quickly Rug Cleaning Supervisor consulted for consideration for precedex, recommended giving etoh, however reduced LOC/unsafe and NPO at present time. --> Was provided lasix 40mg IV x 1 on 08/13 for diuresis (~3L output reported) but had been NPO on 08/14 and gentle IVF + 20meq KCL provided overnight -- Clonidine patch ordered for HTN, hydralazine available prn (currently BP 123/88) Abx switched to cefazolin 08/14 to cover for ecoli UTI resistant to Unasyn which he was previously on Continue folic acid, B12. Thiamine IV TID x 6 doses and remains on IV continued Stopped further IVF for 08/15 CXR w/ improvement in aeration, ?atelectasis vs aspiration vs pneumonia -- supplemental O2 to maintain sats and will monitor WBC wnl, afebrile TSH checked and further elevated to 30s (T4/t3 wnl) -- now taking PO 08/16 Was given one dose of phenobarbital 65mg last evening around 20:46 and remaining calm Given soft/bite size diet, tolerating. K 3.3, PO replacement ordered. Mag 1.5 and additional IV magnesium replacement ordered. TB now wnl, AST/ALT/ALP trending down compared to yesterday Eating soft/bite size diet Valsartan resumed for HTN now that taking PO. Labetalol transitioned to metoprolol tartrate 12.5mg BID for now. Monitor ability to dc clonidine vs metoprolol . Have been giving hydralazine prn as well Continue ancef for now given unreliable PO intake however for UTI coverage. 97% on room air PT consult placed (did get up to bedside commode w/ nursing yesterday and reportedly did fairly well) 08/17 Did only get one loading dose phenobarb. Has gotten prn dose on 08/15, repeated overnight into 08/16 Added back ativan IV AWSS. Will monitor but if worse will plan for scheduled PO phenobarb. Patient awake/alert and oriented during encounter but does have intermittent issues with year with nursing at times still Agreeable to inpatient alcohol rehab, [facility] liason notified to further discuss Labs w/ improvement in electrolytes today, has been taking some PO. Volume overloaded and BNP elevation and lasix 40mg IV x 1 and monitoring response. K supplementaion w/ lasix BP remains elevated, hydralazine available, continues on clonidine patch. Resumed home valsartan 08/16 and will plan to resume his HCTZ vs additonal lasix for tomorrow. Check ECHO given elevated BNP to assess for any further issues. Suspect significant LVH from his HTN. Denied CP/SOB at present time continued telemetry monitoring (2) Adjustment disorder with depressed mood: Plan: last seen by PCP for this 01/2023 - documented not controlled, increased lexapro to 20mg however unclear if he was actually taking this Psych on consult/to follow while inpatient Denies any SI/HI at present but very irritable Ativan AWSS as above, [facility] liaison to see today (3) UTI (urinary tract infection): Plan: Urine cx w/ ecoli resistant to unasyn as above and switched abx to Ancef given NPO status and will just complete course on such to ensure getting adequate treatment with his waxing/waning alertness UOP acceptable,lasix as above (4) Hypertension: Plan: SIGNIFICANT HTN. No CP at present time but BP remaining elevated and working on resuming home medications Valsartan held while NPO and utilizing clonidine/hydralazine/labetalol IV Switched to metoprolol for HR control BID, remains on clonidine Valsartan resumed Hydralazine remains prn Lasix IV x 1 as above, monitor labs in AM/resumed HCTZ pending (5) Acute kidney injury: Plan: Cr 1.7 on admit w/ ~1.1 baseline s/p 1L IVF in ER and continuous IVF on admission, now s/p IV lasix and did provide gentle IVF 08/14-08/15 @ 60cc/hr given NPO/cognitive status HCTZ remaining on hold, valsartan resumed. BUN/Cr 9/0.85 Lasix 40mg IV x 1 for today for volume overload Renal dose meds as needed/avoid nephrotoxins as able BMP in AM (6) Hypokalemia: Plan: IMPROVED/normalized on repeat. Did order dose of lasix as above, PO K w/ such to prevent further hypokalemia Valsartan resumed for BP BMP in AM (7) Hypomagnesemia: Plan: NORMALIZED on repeat, continue to monitor/replacement as needed (8) Thrombocytopenia: Plan: Platelets 125 on arrival , down to 92 but improved/stabilized Monitor (9) Anemia: Plan: 13.2 on admission but copious IVF provided as well as multiple lab draws Iron studies w/o significant deficiency, B12 >1500. Hgb 8.4, heparin/lovenox on hold and using SCDs Fecal occult NEGATIVE BNP elevated/congested --> will order dose lasix today/monitor in AM No bleeding reported at present time Synthroid replacement as outlined CBC in AM (10) Elevated LFTs: Plan: MELD score calculated@17 on admission (MELD 7 on 08/15) AST, ALT, alk phos and bili elevated from prior tests, likely secondary to ongoing alcohol consumption - hepatic steatosis with possible early cirrhosis seen on CT A/P 08/12 LFTs increasing, discriminant function 4.4, no indication for steroids at this time / LFTs improving however slightly WORSE today and will monitor w/ IVF IVF ordered 08/14 w/ slight worsening in ALP to 252, stopped and taking PO now LFTs trending down w/ exception of ALP NO RUQ pain on exam but will monitor Hepatitis panel negative Lasix 40mg IV x 1, suspect some cirrhosis/abdominal fullness/hepatic congestion Notable CXR w/ some pulmonary edema as well Monitor on repeat (11) Hypothyroidism: Plan: TSH on admission elevated to 25 -Unsure if patient has been taking medication as prescribed, may need to repeat as outpatient and adjust home dosage continue levothyroxine 125mcg daily however given NPO had missed prior 3 days, now taking PO and remains on such. If any further NPO/would order dose IV (12) Hyperlipidemia: Plan: Continue Atorvastatin, Ezetimibe as able Placed statin on hold given elevated LFTs and can resume once normalized Plan Dispo: continued inpatient stay DVT Proh: SCDs in place (hold on heparin given thrombocytopenia,lovenox given EARLINE) - no calf pain/edema today, pulses palpable PT evals ordered U liaison to see today/consideration inpatient alcohol rehab Admission and Anticipated Discharge Date Admission Date: August 12, 2023 Supervising Physician Co-Signing Physician Notes The patient was not seen by me. The chart was reviewed. Case discussed with HAMZAH Dee. Agree with assessment and plan Subjective Evaluated this morning around 11am, more awake today/able to converse. When asked orientation questions, reports in hospital, 2023, august. When asking about rehab/inpatient treatment or if he was not interested at this time and he said "I'm interested in treatment". Does seem irritable that staff keep waking him and reports "wish they would just let me fucking sleep". No fever/chills, chest pain, shortness of breath reported. Reported eating fine. No abdominal pain/nausea. Physical Exam Physical Exam: General: 58 yo male laying in bed, seizure pads in place, more awake today and answering questions but irritable and wanting to be left alone to sleep, NAD reports 2023, august, in hospital [facility] Head atraumatic, normocephalic, mmm, trachea midline Resp: even/unlabored, diminished in the bases, end expiratory wheezing, no crackles, on room air CV: RRR, slight systolic murmur, trace pedal edema/calves nontender GI: +BS, slight distension but NONTENDER : slightly concentrated urine draining (?2nd to bili) MSK/Neuro: nonfocal, DTRs intact, pupils equal/reactive to light. Able to follow commands as able when awake, + agitation, slight tremor (decreased) Psych : alert to person/place, intermittent to year (improved 08/17), more cooperative but agitated/irritable Results & Data Results & Data Vital Signs (Past 12 Hours) Vital Signs Temp Pulse Pulse Resp BP Pulse Ox O2 Del Method 08/18/23 07:48 36.6 C 102 H 24 166/105 H 96 Room Air 08/18/23 02:57 37.2 C 79 22 117/79 95 Room Air 08/18/23 02:19 79 08/17/23 22:58 37.1 C 79 25 H 133/90 97 Room Air Laboratory Results 08/18/23 08/16/23 Range/Units 05:53 07:48 WBC 5.74 (4.8-10.8) K/ul RBC 2.47 L (4.70-6.10) M/uL Hgb 8.4 L (14.0-18.0) g/dl Hct 25.0 L (42.0-52.0) % MCV 101.2 H (80.0-100.0) fL MCH 34.0 (25.0-34.0) pg MCHC 33.6 (32.0-36.0) g/dL RDW Std Deviation 67.1 H (36.4-46.3) fL RDW Coeff of Joshua 18.1 H (11.5-14.5) % Plt Count 185 (130-400) K/uL MPV 11.1 (9.4-12.4) fL Immature Gran % (Auto) 1.2 % Neut % (Auto) 69.3 % Lymph % (Auto) 14.6 % [place] % (Auto) 12.7 % Eos % (Auto) 1.7 % Baso % (Auto) 0.5 % Neut # (Auto) 3.97 (1.40-6.50) K/uL Lymph # (Auto) 0.84 L (1.20-3.40) K/uL [place] # (Auto) 0.73 H (0.11-0.59) K/uL Eos # (Auto) 0.10 (0.00-0.50) K/uL Baso # (Auto) 0.03 (0.00-0.20) K/uL Immature Gran # (Auto) 0.07 (0.01-0.20) K/uL PT 10.9 (9.0-12.0) Seconds INR 1.0 (0.9-1.1) Sodium 137 (136-145) mmol/L Potassium 3.7 (3.5-5.1) mmol/L Chloride 108 H (98-107) mmol/L Carbon Dioxide 23 (21-32) mmol/L Anion Gap 6 (3-11) BUN 9 (6-23) mg/dl Creatinine 0.85 (0.6-1.4) mg/dl Est Cr Clr Drug Dosing 97.4 ml/min Est GFR ( Amer) 110.5 ml/min Est GFR (Non-Af Amer) 95.4 ml/min BUN/Creatinine Ratio 10.6 (10-20) Glucose 97 (70-99(Fasting)) mg/dl Calcium 7.8 L (8.6-10.3) mg/dl Phosphorus 2.5 (2.5-4.9) mg/dl Magnesium 1.7 (1.7-2.4) mg/dl Total Bilirubin 0.7 (0.2-1.0) mg/dl Direct Bilirubin 0.3 H (0-0.2) mg/dl AST 160 H (13-39) U/L ALT 83 H (7-52) U/L Alkaline Phosphatase 259 H (34-104) U/L B-Natriuretic Peptide 256 H (0-100) pg/ml Total Protein 5.5 L (6.0-8.3) gm/dl Albumin 2.9 L (3.4-5.0) gm/dl Hepatitis A IgM Ab NON-REACTIVE (NON-REACTIVE) Hep Bs Antigen NON-REACTIVE (NON-REACTIVE) Hep Bs Ag Confirmation TNP Hep B Core IgM Ab NON-REACTIVE (NON-REACTIVE) Hepatitis C Ab (EIA) NON-REACTIVE (NON-REACTIVE) PG Care Time/CCT Total # of Minutes Spent Total Time Spent with Patient: Total time spent is greater than 50% in coordination of care (as documented) at patient's floor/unit and/or counseling patient: Coding Level of Care Code 46308 SUB INP/OBS CARE 3/50MIN Diagnoses Alcohol withdrawal F10.939 Adjustment disorder with depressed mood F43.21 UTI (urinary tract infection) N39.0 Hypertension I10 Acute kidney injury N17.9 Hypokalemia E87.6 Hypomagnesemia E83.42 Thrombocytopenia D69.6 Anemia D64.9 Elevated LFTs R79.89 Hypothyroidism E03.9 Hyperlipidemia E78.5
[2023-08-18] MEDS: FUROSEMIDE INJ 20 MG/2 ML VIAL IV ONE (08:15)
[2023-08-18] MEDS: POTASSIUM CHLORIDE CRTAB 20 MEQ TABCR PO STA (08:15)
[2023-08-18] MEDS ORDERED: Ativan IV Alcohol Withdrawal--Active Protocol IV PRN (08:18)
[2023-08-18] MEDS ORDERED: LORazepam 2 MG in SYRINGE 1 ML IV PRN (08:18)
[2023-08-18] MEDS ORDERED: LORazepam 3 MG in SYRINGE 1.5 ML IV PRN (08:18)
--- NOTE | 2023-08-18 11:23 | XCELERA ---
[id number] [id number]
[2023-08-18] MEDS: LORazepam 1 MG in SYRINGE 0.5 ML IV PRN (13:28)
--- NOTE | 2023-08-18 18:09 | Communication Note ---
Date of Service: August 18, 2023 Visited with Alexei this afternoon per his request. He was much more awake/alert and willing to have conversation. Initially reported ok w/ inpatient alcohol rehab this morning but he is hopeful to dc home first. Discussed needing to ensure therapy evals/safety at home. Discussed I do not feel this is safe at this present time and just today appearing improved and wanting to monitor and resume home medications/better control of his blood pressure and monitoring for further DTs. Discussed given lasix this morning and monitoring ability to resume home HCTZ in AM vs additional lasix dosing pending repeat exam. Reports breathing stable, no CP. He does note increased stress earlier this year with loosing his job. Support provided, encouraged cessation and discussion of risks w/ continued drinking and withdrawals, especially given he had a seizure while inpatient due to such. Vitals presently stable, BP 142/77, HR in 70s on telemetry, NSR, no fever. No tremor at present. While wanting to go home, he was agreeable to work with me through this weekend to see how tuned up we can get him and will have psych also eval to ensure able to have follow up/safe to dc. Will need ongoing discussions on risks if he ends up wanting to sign out AMA at this time. Psych liaison contacted this afternoon, was not able to see this morning and going to room last evening.
[2023-08-19 06:59] LABS: Hematocrit (blood only) 25.6 % (42.0-52.0); Hemoglobin 8.5 g/dl (14.0-18.0); Mean Corpuscular Hemoglobin 34.1 pg (25.0-34.0); Mean Corpuscular Hgb Conc 33.2 g/dL (32.0-36.0); Mean Corpuscular Volume 102.8 fL (80.0-100.0); Mean Platelet Volume 11.3 fL (9.4-12.4); Platelet Count 199 K/uL (130-400); RDW Coefficient of Variation 18.1 % (11.5-14.5); Red Blood Count 2.49 M/uL (4.70-6.10); White Blood Count 5.78 K/ul (4.8-10.8)
[2023-08-19 07:34] LABS: Albumin Level 3.1 gm/dl (3.4-5.0); BUN Creatinine Ratio 8.3 (10-20); Bilirubin Direct 0.3 mg/dl (0-0.2); Bilirubin,Total 0.7 mg/dl (0.2-1.0); Calcium 8.3 mg/dl (8.6-10.3); Creatinine Clr Calc Pharmacy 85.6 ml/min; Est GFR (African American) 99.9 ml/min; Est GFR (Non-African American) 86.2 ml/min; Magnesium 1.4 mg/dl (1.7-2.4); Phosphorus 3.2 mg/dl (2.5-4.9); Potassium 3.8 mmol/L (3.5-5.1); Total Protein 5.7 gm/dl (6.0-8.3)
--- NOTE | 2023-08-19 07:41 | Hospitalist Progress Note ---
Date of Service August 19, 2023 Assessment & Plan (1) Alcohol withdrawal: Plan: Metabolic encephalopathy Patient reporting drinking pint of vodka daily (actually a fifth on further questioning) with last drink 08/10 around 6pm. Has previously been to [facility]/rehab. Was going to therapy at [facility] but stopped in the last month, without a reason (s/o thinks related to Losing his job) Had been on naltrexone, disulfiram in past but not taken in some time on admission (however PCP noting did have recent fill) Etoh on admission <10 Witnessed seizure on admission 08/11 inpatient and reports of ?witnessed seizure few days prior to admission witnessed by GF possible? CT head/c-scope/abdomen without acute findings following fall Initially on ativan protocol however switched to Phenobarbitol protocol (got 130mg IM x 1 dose on 08/13) and nothing on 08/14 but again repeated this morning for 65mg IM x 1 dose and appearing stable but fatigued/falling back asleep quickly Hospitalist Nocturnist Physician consulted for consideration for precedex, recommended giving etoh, however reduced LOC/unsafe and NPO at present time. --> Was provided lasix 40mg IV x 1 on 08/13 for diuresis (~3L output reported) but had been NPO on 08/14 and gentle IVF + 20meq KCL provided overnight -- Clonidine patch ordered for HTN, hydralazine available prn (currently BP 123/88) Abx switched to cefazolin 08/14 to cover for ecoli UTI resistant to Unasyn which he was previously on Continue folic acid, B12. Thiamine IV TID x 6 doses and remains on IV continued Stopped further IVF for 08/15 CXR w/ improvement in aeration, ?atelectasis vs aspiration vs pneumonia -- supplemental O2 to maintain sats and will monitor WBC wnl, afebrile TSH checked and further elevated to 30s (T4/t3 wnl) -- now taking PO 08/16 Was given one dose of phenobarbital 65mg last evening around 20:46 and remaining calm Given soft/bite size diet, tolerating. K 3.3, PO replacement ordered. Mag 1.5 and additional IV magnesium replacement ordered. TB now wnl, AST/ALT/ALP trending down compared to yesterday Eating soft/bite size diet Valsartan resumed for HTN now that taking PO. Labetalol transitioned to metoprolol tartrate 12.5mg BID for now. Monitor ability to dc clonidine vs metoprolol . Have been giving hydralazine prn as well Continue ancef for now given unreliable PO intake however for UTI coverage. 97% on room air PT consult placed (did get up to bedside commode w/ nursing yesterday and reportedly did fairly well) 08/17 Did only get one loading dose phenobarb. Has gotten prn dose on 08/15, repeated overnight into 08/16 Added back ativan IV AWSS. Will monitor but if worse will plan for scheduled PO phenobarb. Patient awake/alert and oriented during encounter but does have intermittent issues with year with nursing at times still Agreeable to inpatient alcohol rehab, U liason notified to further discuss Labs w/ improvement in electrolytes today, has been taking some PO. Volume overloaded and BNP elevation and lasix 40mg IV x 1 and monitoring response. K supplementation w/ lasix BP remains elevated, hydralazine available, continues on clonidine patch. Resumed home valsartan 08/16 and will plan to resume his HCTZ vs additional lasix for tomorrow. Check ECHO given elevated BNP to assess for any further issues. Suspect significant LVH from his HTN. Denied CP/SOB at present time continued telemetry monitoring 08/18 - VSS this morning, BP 116/82, HR 71, temp 36.8C, 97% on RA - Received 1mg IV ativan afternoon 08/17, additional 1mg overnight into this morning for AWSS of 6 (prior 1) and will continue to monitor - Received 40mg IV lasix yesterday morning, BUN/Cr stable 8/0.96 and will repeat dose for today - Mag 1.4, IV replacement ordered and adding PO slow mag daily and can consider increasing to BID if needed pending AM labs - Discussed w/ patient last enveing about rehab and he did want to go home. Continued discussions/working on underlying medical issues but appearing much better. U liaison was to visit/talk with patient last night. Patient did remember our discussion/conversation about wanting to keep inpatient/concerns about going home and need for rehab. PT hamletals do recommend rehab, he is a little unsteady on his feet likely from being in bed for several days while needing sedation following seizure/phenobarbitol use. He was ok w/ updating his significant other. Called her today and she is in agreement Alexei should not come home just yet and is also on board with need for some short term rehab. She will be in to see him shortly and continue to encourage inpatient stay working on elevcetrolytes/volume overload/etc prior to entertaining discharge. Should he want to leave, would contact psych to see about ability to allow him to sign self out AMA - did discuss in my medical opinion at present time concerns about discharge too soon given events during inpatient stay (2) Adjustment disorder with depressed mood: Plan: last seen by PCP for this 01/2023 - documented not controlled, increased lexapro to 20mg however unclear if he was actually taking this Psych on consult/to follow while inpatient Denies any SI/HI at present but very irritable at times (improved for myself 08/18 but still wanting to go home) [facility] as [facility], [facility] liaison saw 08/17. Would have see if decides to want to sign out AMA (3) UTI (urinary tract infection): Plan: Urine cx w/ ecoli resistant to unasyn as above and switched abx to Ancef given NPO status and will just complete course on such to ensure getting adequate treatment with his waxing/waning alertness UOP acceptable,lasix as above (4) Hypertension: Plan: SIGNIFICANT HTN. No CP at present time but BP remaining elevated and working on resuming home medications Valsartan has been resumed and continued Given Lasix 40mg IV on 08/17, repeating for today Holding further metoprolol (not on at home) as BP MUCH improved and to 113/75 --> remains on clonidine patch in meantime (suspect benefit w/ mood w/ such as well, consider continuing at discharge) Monitor labs/BP in AM (5) Acute kidney injury: Plan: Cr 1.7 on admit w/ ~1.1 baseline s/p 1L IVF in ER and continuous IVF on admission, now s/p IV lasix by Dr Garcia last week Did provide gentle IVF 08/14-08/15 @ 60cc/hr given NPO/cognitive status but now more awake/taking PO Valsartan resumed, lasix 40mg IV on 08/17, repeated for today given BUN/Cr 8/0.96 and likely able to resume HCTZ in AM, however suspect likely with underlying cirrhosis may be more better suited with low dose lasix, ?20 vs 40mg PO BMP in AM (6) Hypokalemia: Plan: IMPROVED/normalized on repeat. Valsartan resumed and remaining stable. Did get PO Kcl w/ IV lasix to prevent any further issues. PO intake as above much improved BMP in AM (7) Hypomagnesemia: Plan: NORMALIZED on repeat, however have been continuing to monitor for stability --> Again low 1.4, IV magnesium ordered and starting once daily SLOW MAG but consider increasing to BID if remaining low Mag in AM (8) Thrombocytopenia: Plan: Platelets 125 on arrival , down to 92 but improved/stabilized and remaining stable Monitor (9) Anemia: Plan: 13.2 on admission but copious IVF provided as well as multiple lab draws Iron studies w/o significant deficiency, B12 >1500. Hgb 8.4, heparin/lovenox on hold and using SCDs Fecal occult NEGATIVE, no bleeding reported. Will repeat fecal occult given loose stools (however no darkened/black stools reported) BNP elevated/congested --> IV lasix as above, Synthroid as outlined below Continuing on B12/folate supplementation given etoh as above Hgb presently 8.5 and will monitor with continued diuretics/any bleeding CBC in AM (10) Elevated LFTs: Plan: MELD score calculated@17 on admission (MELD 7 on 08/15) AST, ALT, alk phos and bili elevated from prior tests, likely secondary to ongoing alcohol consumption - hepatic steatosis with possible early cirrhosis seen on CT A/P 08/12 LFTs increasing, discriminant function 4.4, no indication for steroids at this time 3/ LFTs improving however slightly WORSE today and will monitor w/ IVF IVF ordered 08/14 w/ slight worsening in ALP to 252, stopped and taking PO now and provided lasix x1 *Notable patient had been continued on his statin however was not getting while NPO 08/12-08/14 but was given 08/15 --NOW ON HOLD FOR FURTHER LFTs w/ normal TB 0.7 at present. DB 0.3. However, AST slightly worse today at 174 from 160 however ALT/ALP trending down Continue to hold statin, lasix as above Consider RUQ in f/u if any worsening (did have some sludge on initial imaging but normal TB at present time) LFTs in AM (11) Hypothyroidism: Plan: TSH on admission elevated to 25 -Unsure if patient has been taking medication as prescribed, may need to repeat as outpatient and adjust home dosage Had missed several days while NPO and elevated to 30 on repeat (normal T4/T3 to note) but now taking PO and home dose 125mcg continued Will need repeat TFT as outpatient in next month/adjustment as needed (12) Hyperlipidemia: Plan: Continue Atorvastatin, Ezetimibe as able Placed statin on hold given elevated LFTs and can resume once normalized Plan Dispo: continued inpatient stay DVT proph: SCDs continued. No evidence for DVT at present but prior heparin placed on hold given thrombocytopenia (now improved/resolved) and lovenox given EARLINE -No calf pain reported and has been having improvement with ambulation. Checking repeat fecal occult given loose stools/hgb 8.5 without reports of bleeding. If remains negative can restart Heparin SQ if plts remaining stable PT eval rec rehab -- patient declined. Should have continued therapy while inpatient and ongoing discussions/encouragement for rehab [place] [facility] given extended inpatient stay/not stable for dc home by himself at present time. Discussed care with nicko Del Toro this morning, she will continue to encourage rehab. Going to ask Alexei if needing anything brought in/assistance with paying bills to encourage staying to get care he needs Admission and Anticipated Discharge Date Admission Date: August 12, 2023 Supervising Physician Co-Signing Physician Notes The patient was not seen by me. The chart was reviewed. Case discussed with HAMZAH Dee. Agree with assessment and plan Subjective Evaluated this morning, resting in bed upon entry, easily awoken. When asked if he rememebered our discussion last night, he was able to recall we talked about keeping in the hospital a little longer and attempting to get his medical issues under control and labs/electrolyte improved and wanting to go home and talk with PCP about rehab in follow up but wanting to go home first. Did see U liaison last evening. PT saw yesterday and got up to the chair. Discussed when witnessing patient get up to side of the bed to use urinal (noting urinating clear yellow urine on the floor), was somewhat unsteady and I didn't feel comfortable at this point letting him go home and will continue to monitor daily. If labs improved/stable, will see about tomorrow but discussed it may be more of against medical advice if he is alert/oriented and able to demonstrate understanding of risks at discharge. When asked if able to update significant other he reports being fine with this. THey live together in shared home and he reports it is his house. Reports no chest pain/shortness of breath. Intermittent nausea at times but not at present time/need for medication. Will call to discuss questions/concerns. Physical Exam Physical Exam: General: 58 yo male laying in bed, seizure pads in place, more awake today and answering questions more appropriately, less irritable, NAD, wanting to get up to pee Year 2013 reported but knew in [place], month, remembered our conversation from evening 08/17 Head atraumatic, normocephalic, mmm, trachea midline Resp: even/unlabored, slightly diminished in the bases w/ faint end expiratory wheeze, no crackles, on room air 96% CV: RRR, no significant m/r/g, trace pedal edema, calves nontender GI: +BS, slight distension but no overt tenderness ; no funez, sitting up in bed using urinal, urine spilled on the floor MSK/Neuro: nonfocal, strength equal bilaterally however some muscle atrophy to legs, no significant tremor, impulsive at times Psych: alert to person/place/month, intermittent to year, cooperative for myself during encounter but still voicing wanting to go home Results & Data Results & Data Vital Signs (Past 12 Hours) Vital Signs Temp Pulse Pulse Resp BP Pulse Ox O2 Del Method 08/19/23 07:29 36.8 C 71 18 116/82 97 Room Air 08/19/23 03:17 73 20 154/99 H 95 Room Air 08/18/23 23:35 37.3 C 75 19 141/91 H 96 Room Air 08/18/23 23:17 71 08/18/23 21:57 Room Air Laboratory Results 08/19/23 Range/Units 06:35 WBC 5.78 (4.8-10.8) K/ul RBC 2.49 L (4.70-6.10) M/uL Hgb 8.5 L (14.0-18.0) g/dl Hct 25.6 L (42.0-52.0) % MCV 102.8 H (80.0-100.0) fL MCH 34.1 H (25.0-34.0) pg MCHC 33.2 (32.0-36.0) g/dL RDW Std Deviation 68.0 H (36.4-46.3) fL RDW Coeff of Joshua 18.1 H (11.5-14.5) % Plt Count 199 (130-400) K/uL MPV 11.3 (9.4-12.4) fL Sodium 136 (136-145) mmol/L Potassium 3.8 (3.5-5.1) mmol/L Chloride 106 (98-107) mmol/L Carbon Dioxide 25 (21-32) mmol/L Anion Gap 5 (3-11) BUN 8 (6-23) mg/dl Creatinine 0.96 (0.6-1.4) mg/dl Est Cr Clr Drug Dosing 85.6 ml/min Est GFR ( Amer) 99.9 ml/min Est GFR (Non-Af Amer) 86.2 ml/min BUN/Creatinine Ratio 8.3 L (10-20) Glucose 89 (70-99(Fasting)) mg/dl Calcium 8.3 L (8.6-10.3) mg/dl Ionized Calcium 1.19 (1.12-1.32) mmol/L Phosphorus 3.2 (2.5-4.9) mg/dl Magnesium 1.4 L (1.7-2.4) mg/dl Total Bilirubin 0.7 (0.2-1.0) mg/dl Direct Bilirubin 0.3 H (0-0.2) mg/dl AST 174 H (13-39) U/L ALT 63 H (7-52) U/L Alkaline Phosphatase 248 H (34-104) U/L Total Protein 5.7 L (6.0-8.3) gm/dl Albumin 3.1 L (3.4-5.0) gm/dl PG Care Time/CCT Total # of Minutes Spent Total Time Spent with Patient: Total time spent is greater than 50% in coordination of care (as documented) at patient's floor/unit and/or counseling patient: Coding Level of Care Code 71671 SUB INP/OBS CARE 3/50MIN Diagnoses Alcohol withdrawal F10.939 Adjustment disorder with depressed mood F43.21 UTI (urinary tract infection) N39.0 Hypertension I10 Acute kidney injury N17.9 Hypokalemia E87.6 Hypomagnesemia E83.42 Thrombocytopenia D69.6 Anemia D64.9 Elevated LFTs R79.89 Hypothyroidism E03.9 Hyperlipidemia E78.5
[2023-08-19] MEDS: MAGNESIUM SULFATE / D5W 1 GM/100 ML BAG IV SCH (08:08)
[2023-08-19] MEDS: POTASSIUM CHLORIDE 10 MEQ TABCR PO STA (08:08)
[2023-08-19] MEDS: FUROSEMIDE 40 MG/4 ML VIAL IV ONE (08:08)
[2023-08-19] MEDS: CYANOCOBALAMIN (B-12) 500 MCG TABLET PO SCH (08:09)
[2023-08-19] MEDS: MAGNESIUM CHLORIDE W/CALCIUM 64MG DELAYED REL TAB PO SCH (08:09)
[2023-08-19] MEDS: FOLIC ACID 1 MG TAB PO SCH (08:10)
[2023-08-19] MEDS: THIAMINE HCL 100 MG TAB PO SCH (20:30)
[2023-08-20 07:13] LABS: Hematocrit (blood only) 26.6 % (42.0-52.0); Hemoglobin 8.9 g/dl (14.0-18.0); Mean Corpuscular Hemoglobin 33.6 pg (25.0-34.0); Mean Corpuscular Hgb Conc 33.5 g/dL (32.0-36.0); Mean Corpuscular Volume 100.4 fL (80.0-100.0); Mean Platelet Volume 11.3 fL (9.4-12.4); Platelet Count 229 K/uL (130-400); RDW Coefficient of Variation 17.8 % (11.5-14.5); RDW Standard Deviation 65.9 fL (36.4-46.3); Red Blood Count 2.65 M/uL (4.70-6.10); White Blood Count 6.21 K/ul (4.8-10.8)
[2023-08-20 07:32] LABS: Albumin Level 3.3 gm/dl (3.4-5.0); BUN Creatinine Ratio 8.2 (10-20); Bilirubin Direct 0.2 mg/dl (0-0.2); Bilirubin,Total 0.7 mg/dl (0.2-1.0); Calcium 8.4 mg/dl (8.6-10.3); Creatinine Clr Calc Pharmacy 83.8 ml/min; Est GFR (African American) 98.6 ml/min; Est GFR (Non-African American) 85.1 ml/min; Magnesium 1.7 mg/dl (1.7-2.4); Potassium 3.8 mmol/L (3.5-5.1); Total Protein 6.1 gm/dl (6.0-8.3)
--- NOTE | 2023-08-20 07:45 | Hospitalist Progress Note ---
Date of Service August 20, 2023 Assessment & Plan (1) Alcohol withdrawal: Plan: Metabolic encephalopathy Patient reporting drinking pint of vodka daily (actually a fifth on further questioning) with last drink 08/10 around 6pm. Has previously been to [facility]/rehab. Was going to therapy at [facility] but stopped in the last month, without a reason (s/o thinks related to Losing his job) Had been on naltrexone, disulfiram in past but not taken in some time on admission (however PCP noting did have recent fill) Etoh on admission <10 Witnessed seizure on admission 08/11 inpatient and reports of ?witnessed seizure few days prior to admission witnessed by GF possible? CT head/c-scope/abdomen without acute findings following fall Initially on ativan protocol however switched to Phenobarbitol protocol (got 130mg IM x 1 dose on 08/13) and nothing on 08/14 but again repeated this morning for 65mg IM x 1 dose and appearing stable but fatigued/falling back asleep quickly Manager Marketing consulted for consideration for precedex, recommended giving etoh, however reduced LOC/unsafe and NPO at present time. --> Was provided lasix 40mg IV x 1 on 08/13 for diuresis (~3L output reported) but had been NPO on 08/14 and gentle IVF + 20meq KCL provided overnight -- Clonidine patch ordered for HTN, hydralazine available prn (currently BP 123/88) Abx switched to cefazolin 08/14 to cover for ecoli UTI resistant to Unasyn which he was previously on Continue folic acid, B12. Thiamine IV TID x 6 doses and remains on IV continued Stopped further IVF for 08/15 CXR w/ improvement in aeration, ?atelectasis vs aspiration vs pneumonia -- supplemental O2 to maintain sats and will monitor WBC wnl, afebrile TSH checked and further elevated to 30s (T4/t3 wnl) -- now taking PO 08/16 Was given one dose of phenobarbital 65mg last evening around 20:46 and remaining calm Given soft/bite size diet, tolerating. K 3.3, PO replacement ordered. Mag 1.5 and additional IV magnesium replacement ordered. TB now wnl, AST/ALT/ALP trending down compared to yesterday Eating soft/bite size diet Valsartan resumed for HTN now that taking PO. Labetalol transitioned to metoprolol tartrate 12.5mg BID for now. Monitor ability to dc clonidine vs metoprolol . Have been giving hydralazine prn as well Continue ancef for now given unreliable PO intake however for UTI coverage. 97% on room air PT consult placed (did get up to bedside commode w/ nursing yesterday and reportedly did fairly well) 08/17 Did only get one loading dose phenobarb. Has gotten prn dose on 08/15, repeated overnight into 08/16 Added back ativan IV AWSS. Will monitor but if worse will plan for scheduled PO phenobarb. Patient awake/alert and oriented during encounter but does have intermittent issues with year with nursing at times still Agreeable to inpatient alcohol rehab, U liason notified to further discuss Labs w/ improvement in electrolytes today, has been taking some PO. Volume overloaded and BNP elevation and lasix 40mg IV x 1 and monitoring response. K supplementation w/ lasix BP remains elevated, hydralazine available, continues on clonidine patch. Resumed home valsartan 08/16 and will plan to resume his HCTZ vs additional lasix for tomorrow. Check ECHO given elevated BNP to assess for any further issues. Suspect significant LVH from his HTN. Denied CP/SOB at present time continued telemetry monitoring 08/18 - VSS this morning, BP 116/82, HR 71, temp 36.8C, 97% on RA - Received 1mg IV ativan afternoon 08/17, additional 1mg overnight into this morning for AWSS of 6 (prior 1) and will continue to monitor - Received 40mg IV lasix yesterday morning, BUN/Cr stable 8/0.96 and will repeat dose for today - Mag 1.4, IV replacement ordered and adding PO slow mag daily and can consider increasing to BID if needed pending AM labs - Discussed w/ patient last evening about rehab and he did want to go home. Continued discussions/working on underlying medical issues but appearing much better. U liaison was to visit/talk with patient last night. Patient did remember our discussion/conversation about wanting to keep inpatient/concerns about going home and need for rehab. PT evals do recommend rehab, he is a little unsteady on his feet likely from being in bed for several days while needing sedation following seizure/phenobarbitol use. He was ok w/ updating his significant other. Called her today and she is in agreement Alexei should not come home just yet and is also on board with need for some short term rehab. She will be in to see him shortly and continue to encourage inpatient stay working on elevcetrolytes/volume overload/etc prior to entertaining discharge. Should he want to leave, would contact psych to see about ability to allow him to sign self out AMA - did discuss in my medical opinion at present time concerns about discharge too soon given events during inpatient stay 08/19 AWSS most recently 1 overnight. Has not required any further ativan at this time since ~1am on 08/18 Lasix 40mg PO for this morning LFTs remain elevated/TB wnl. Hepatitis panel negative. Did have some diarrhea, cdiff/occult blood negative Could consider repeat CTabd imaging vs RUQ US however DENIES abdominal pain at present. Chronic elevations 2nd to alcohol use. Monitor for hepatotoxic medications Psych to see in AM as discussed with Liason this morning, updated significant other by phone and significant concerns w/ strength at home at wi given inpatient course. Encouarged to strongly encourage rehab during their encounter as well (2) Adjustment disorder with depressed mood: Plan: last seen by PCP for this 01/2023 - documented not controlled, increased lexapro to 20mg however unclear if he was actually taking this Psych on consult/to follow while inpatient Denies any SI/HI at present but very irritable at times (improved for myself 08/18 but still wanting to go home) [facility] as [facility], [facility] liaison saw 08/17. Would have see if decides to want to sign out AMA (3) UTI (urinary tract infection): Plan: Urine cx w/ ecoli resistant to unasyn as above and switched abx to Ancef given NPO status and will just complete course on such to ensure getting adequate treatment with his waxing/waning alertness UOP acceptable,lasix as above would complete 7 day course which should be complete 08/20 cdiff negative, less diarrhea - likely from withdrawals, improving (4) Hypertension: Plan: SIGNIFICANT HTN. No CP at present time but BP remaining elevated and working on resuming home medications Valsartan has been resumed and continued Given Lasix 40mg IV on 08/17, repeated 08/18 and ordered 40mg PO for 08/19 Metoprolol discontinued as not taking at home, remains on clonidine patch and suspect helping with his mood as well and would consider continuing such at dis charge Discussed w/ patient low dose diuretic w/ lasix over HCTZ at discharge and will monitor response to PO lasix -- BP presently 121/76 this afternoon Monitor (5) Acute kidney injury: Plan: Cr 1.7 on admit w/ ~1.1 baseline s/p 1L IVF in ER and continuous IVF on admission, now s/p IV lasix by Dr Garcia last week -Did provide gentle IVF 08/14-08/15 @ 60cc/hr given NPO/cognitive status but now more awake/taking PO Valsartan resumed, lasix 40mg IV on 08/17 and 08/18 and ordered PO for today Suspect could dc on lasix 40mg PO daily if continuing to tolerate/kidney function remains stable BMP in AM (6) Hypokalemia: Plan: IMPROVED/normalized on repeat. Valsartan resumed and remaining stable. Did get PO Kcl w/ IV lasix to prevent any further issues however not for today and will monitor given improvement in PO intake Monitor BMP (7) Hypomagnesemia: Plan: NORMALIZED on repeat, however have been continuing to monitor for stability and had been low on repeat/additional IV ordered 08/18 and started daily slow mag and normal on AM labs but again will repeat in AM to see if needing to increase PO to BID (8) Thrombocytopenia: Plan: Platelets 125 on arrival , down to 92 but improved/stabilized and remaining stable on repeat labs Monitor (9) Anemia: Plan: 13.2 on admission but copious IVF provided as well as multiple lab draws Iron studies w/o significant deficiency, B12 >1500. Hgb 8.4, heparin/lovenox on hold and using SCDs Fecal occult NEGATIVE, no bleeding reported. repeat fecal occult remaining negative Hgb 8.9 with continued diuretics and repeat PO dose for today and continues on B12/folate/thiamine for etoh as above Monitor (10) Elevated LFTs: Plan: MELD score calculated@17 on admission (MELD 7 on 08/15) AST, ALT, alk phos and bili elevated from prior tests, likely secondary to ongoing alcohol consumption - hepatic steatosis with possible early cirrhosis seen on CT A/P 08/12 LFTs increasing, discriminant function 4.4, no indication for steroids at this time 08/13 LFTs improving however slightly WORSE today and will monitor w/ IVF IVF ordered 08/14 w/ slight worsening in ALP to 252, stopped and taking PO now and provided lasix x1 *Notable patient had been continued on his statin however was not getting while NPO 08/12-08/14 but was given 08/15 --NOW ON HOLD FOR FURTHER 08/19- TB/DB wnl, AST/ALT/ALP elevated. No abdominal pain reported today (does have some sludge on imaging) and will monitor, continue to hold statin/ezetimibe (11) Hypothyroidism: Plan: TSH on admission elevated to 25 -Unsure if patient has been taking medication as prescribed, may need to repeat as outpatient and adjust home dosage Had missed several days while NPO and elevated to 30 on repeat (normal T4/T3 to note) but now taking PO and home dose 125mcg continued Will need repeat TFT as outpatient in next month/adjustment as needed (12) Hyperlipidemia: Plan: Continue Atorvastatin, Ezetimibe as able Placed statin on hold given elevated LFTs and can resume once normalized vs continuing to hold given underlying liver dysfunction Plan Dispo: continued inpatient stay DVT proph: SCDs continued. prior heparin placed on hold given thrombocytopenia (now improved/resolved) and lovenox given EARLINE. No evidence for DVT at present time PT eval rec rehab -- patient declined rehab but has been encouraged. Will repeat eval in AM Updated s.o Katey AM 08/19 Admission and Anticipated Discharge Date Admission Date: August 12, 2023 Supervising Physician Co-Signing Physician Notes The patient was not seen by me. The chart was reviewed. Case discussed with HAMZAH Dee. Agree with assessment and plan Subjective Evaluated this morning, continues with improvement. BP elevated but improved. No headache reported. Remembers seeing me from days prior -- discussed and confirmed I am with medicine taking care of him (mentioned to nursing hasn't been seen in 2 days). Reports good appetite, can be irritable about waiting to go home at times but did discuss labs improving and appearing better but would like to keep another night and have therapy re-evaluate him in the morning to see if strong enough for discharge. Said girlfriend coming in today with whatever he needs for bills/etc. No abdominal, pain or nausea reported. He would like to go home tomorrow . Discussed will attempt measures to see if able to make this happen. Physical Exam Physical Exam: General: 58 yo male laying in bed, seizure pads in place, more awake today/answering questions. appears alert to person/place/month but intermittently will say year is 2013 at times Head atraumatic, normocephalic, mmm, trachea midline Resp: even/unlabored, slightly diminished in the bases w/ faint end expiratory wheeze, no crackles, on room air 97% CV: RRR, no significant m/r/g, trace pedal edema, calves nontender GI: +BS, slight distension (decreased) but no overt tenderness ; no funez MSK/Neuro: nonfocal, strength equal bilaterally however some muscle atrophy to legs, no significant tremor, impulsive at times Psych: alert to person/place/month, intermittent to year, cooperative for myself during encounter but still voicing wanting to go home Results & Data Results & Data Vital Signs (Past 12 Hours) Vital Signs Temp Pulse Pulse Resp BP Pulse Ox O2 Del Method 08/20/23 03:15 37.3 C 77 15 123/82 95 Room Air 08/19/23 23:05 36.8 C 76 16 143/99 H 95 Room Air 08/19/23 22:55 72 08/19/23 19:20 36.7 C 74 21 147/95 H 95 Room Air Laboratory Results 08/20/23 08/19/23 Range/Units 06:34 17:30 WBC 6.21 (4.8-10.8) K/ul RBC 2.65 L (4.70-6.10) M/uL Hgb 8.9 L (14.0-18.0) g/dl Hct 26.6 L (42.0-52.0) % MCV 100.4 H (80.0-100.0) fL MCH 33.6 (25.0-34.0) pg MCHC 33.5 (32.0-36.0) g/dL RDW Std Deviation 65.9 H (36.4-46.3) fL RDW Coeff of Joshua 17.8 H (11.5-14.5) % Plt Count 229 (130-400) K/uL MPV 11.3 (9.4-12.4) fL Sodium 135 L (136-145) mmol/L Potassium 3.8 (3.5-5.1) mmol/L Chloride 102 (98-107) mmol/L Carbon Dioxide 26 (21-32) mmol/L Anion Gap 7 (3-11) BUN 8 (6-23) mg/dl Creatinine 0.97 (0.6-1.4) mg/dl Est Cr Clr Drug Dosing 83.8 ml/min Est GFR ( Amer) 98.6 ml/min Est GFR (Non-Af Amer) 85.1 ml/min BUN/Creatinine Ratio 8.2 L (10-20) Glucose 96 (70-99(Fasting)) mg/dl Calcium 8.4 L (8.6-10.3) mg/dl Magnesium 1.7 (1.7-2.4) mg/dl Total Bilirubin 0.7 (0.2-1.0) mg/dl Direct Bilirubin 0.2 (0-0.2) mg/dl AST 187 H (13-39) U/L ALT 59 H (7-52) U/L Alkaline Phosphatase 259 H (34-104) U/L Total Creatine Kinase 46 (30-223) U/L Total Protein 6.1 (6.0-8.3) gm/dl Albumin 3.3 L (3.4-5.0) gm/dl Stool Occult Bld Scrn Negative (Negative) Stl C. diff Tox B Gene Negative Cdiff Gene (Neg) PG Care Time/CCT Total # of Minutes Spent Total Time Spent with Patient: Total time spent is greater than 50% in coordination of care (as documented) at patient's floor/unit and/or counseling patient: Coding Level of Care Code 61751 SUB INP/OBS CARE 3/50MIN Diagnoses Alcohol withdrawal F10.939 Adjustment disorder with depressed mood F43.21 UTI (urinary tract infection) N39.0 Hypertension I10 Acute kidney injury N17.9 Hypokalemia E87.6 Hypomagnesemia E83.42 Thrombocytopenia D69.6 Anemia D64.9 Elevated LFTs R79.89 Hypothyroidism E03.9 Hyperlipidemia E78.5
[2023-08-20] MEDS: FUROSEMIDE 40 MG TAB PO ONE (09:22)
--- NOTE | 2023-08-20 13:26 | Communication Note ---
Date of Service: August 20, 2023 Went back to visit/see patient this afternoon with ex- Rossana and significant other Katey. Patient calm/cooperative during encounter. Discussed our concerns for weakness due to hospital stay and need for rehab at discharge. Strongly encouraged but discussed cannot force him. When asked if he would be willing to consider after our discussion he reported yes and will contact CM to send referral. Would be agreeable to [facility] this upcoming week, will have CM follow up.
[2023-08-20] MEDS: PANTOprazole 40 MG TAB PO SCH (20:30)
[2023-08-20] MEDS: ACETAMINOPHEN 325 MG TAB PO PRN (23:58)
[2023-08-21 06:54] LABS: Hematocrit (blood only) 26.9 % (42.0-52.0); Hemoglobin 8.9 g/dl (14.0-18.0); Mean Corpuscular Hemoglobin 33.6 pg (25.0-34.0); Mean Corpuscular Hgb Conc 33.1 g/dL (32.0-36.0); Mean Corpuscular Volume 101.5 fL (80.0-100.0); Mean Platelet Volume 10.9 fL (9.4-12.4); Platelet Count 257 K/uL (130-400); RDW Coefficient of Variation 17.3 % (11.5-14.5); RDW Standard Deviation 63.8 fL (36.4-46.3); Red Blood Count 2.65 M/uL (4.70-6.10); White Blood Count 6.55 K/ul (4.8-10.8)
[2023-08-21 07:29] LABS: Albumin Level 3.3 gm/dl (3.4-5.0); BUN Creatinine Ratio 7.1 (10-20); Bilirubin Direct 0.2 mg/dl (0-0.2); Bilirubin,Total 0.6 mg/dl (0.2-1.0); Calcium 8.7 mg/dl (8.6-10.3); Creatinine Clr Calc Pharmacy 81.7 ml/min; Est GFR (African American) 96.2 ml/min; Magnesium 1.5 mg/dl (1.7-2.4); Potassium 3.8 mmol/L (3.5-5.1); Total Protein 6.1 gm/dl (6.0-8.3)
--- NOTE | 2023-08-21 07:42 | Hospitalist Progress Note ---
Date of Service August 21, 2023 Assessment & Plan (1) Alcohol withdrawal: Plan: Metabolic encephalopathy Patient reporting drinking pint of vodka daily (actually a fifth on further questioning) with last drink 08/10 around 6pm. Has previously been to [facility]/rehab. Was going to therapy at [facility] but stopped in the last month, without a reason (s/o thinks related to Losing his job) Had been on naltrexone, disulfiram in past but not taken in some time on admission (however PCP noting did have recent fill) Etoh on admission <10 Witnessed seizure on admission 08/11 inpatient and reports of ?witnessed seizure few days prior to admission witnessed by GF possible? CT head/c-scope/abdomen without acute findings following fall Initially on ativan protocol however switched to Phenobarbitol protocol (got 130mg IM x 1 dose on 08/13) and nothing on 08/14 but again repeated this morning for 65mg IM x 1 dose and appearing stable but fatigued/falling back asleep quickly Esthetician consulted for consideration for precedex, recommended giving etoh, however reduced LOC/unsafe and NPO at present time. --> Was provided lasix 40mg IV x 1 on 08/13 for diuresis (~3L output reported) but had been NPO on 08/14 and gentle IVF + 20meq KCL provided overnight -- Clonidine patch ordered for HTN, hydralazine available prn (currently BP 123/88) Abx switched to cefazolin 08/14 to cover for ecoli UTI resistant to Unasyn which he was previously on Continue folic acid, B12. Thiamine IV TID x 6 doses and remains on IV continued Stopped further IVF for 08/15 CXR w/ improvement in aeration, ?atelectasis vs aspiration vs pneumonia -- supplemental O2 to maintain sats and will monitor WBC wnl, afebrile TSH checked and further elevated to 30s (T4/t3 wnl) -- now taking PO 08/16 Was given one dose of phenobarbital 65mg last evening around 20:46 and remaining calm Given soft/bite size diet, tolerating. K 3.3, PO replacement ordered. Mag 1.5 and additional IV magnesium replacement ordered. TB now wnl, AST/ALT/ALP trending down compared to yesterday Eating soft/bite size diet Valsartan resumed for HTN now that taking PO. Labetalol transitioned to metoprolol tartrate 12.5mg BID for now. Monitor ability to dc clonidine vs metoprolol . Have been giving hydralazine prn as well Continue ancef for now given unreliable PO intake however for UTI coverage. 97% on room air PT consult placed (did get up to bedside commode w/ nursing yesterday and reportedly did fairly well) 08/17 Did only get one loading dose phenobarb. Has gotten prn dose on 08/15, repeated overnight into 08/16 Added back ativan IV AWSS. Will monitor but if worse will plan for scheduled PO phenobarb. Patient awake/alert and oriented during encounter but does have intermittent issues with year with nursing at times still Agreeable to inpatient alcohol rehab, U liason notified to further discuss Labs w/ improvement in electrolytes today, has been taking some PO. Volume overloaded and BNP elevation and lasix 40mg IV x 1 and monitoring response. K supplementation w/ lasix BP remains elevated, hydralazine available, continues on clonidine patch. Resumed home valsartan 08/16 and will plan to resume his HCTZ vs additional lasix for tomorrow. Check ECHO given elevated BNP to assess for any further issues. Suspect significant LVH from his HTN. Denied CP/SOB at present time continued telemetry monitoring 08/18 - VSS this morning, BP 116/82, HR 71, temp 36.8C, 97% on RA - Received 1mg IV Ativan afternoon 08/17, additional 1mg overnight into this morning for AWSS of 6 (prior 1) and will continue to monitor - Received 40mg IV Lasix yesterday morning, BUN/Cr stable 8/0.96 and will repeat dose for today - Mag 1.4, IV replacement ordered and adding PO slow mag daily and can consider increasing to BID if needed pending AM labs - Discussed w/ patient last evening about rehab and he did want to go home. Continued discussions/working on underlying medical issues but appearing much better. U liaison was to visit/talk with patient last night. Patient did remember our discussion/conversation about wanting to keep inpatient/concerns about going home and need for rehab. PT evals do recommend rehab, he is a little unsteady on his feet likely from being in bed for several days while needing sedation following seizure/phenobarbital use. He was ok w/ updating his significant other. Called her today and she is in agreement Alexei should not come home just yet and is also on board with need for some short term rehab. She will be in to see him shortly and continue to encourage inpatient stay working on electrolytes/volume overload/etc prior to entertaining discharge. Should he want to leave, would contact psych to see about ability to allow him to sign self out AMA - did discuss in my medical opinion at present time concerns about discharge too soon given events during inpatient stay 08/19 AWSS most recently 1 overnight. Has not required any further ativan at this time since ~1am on 08/18 Lasix 40mg PO for this morning LFTs remain elevated/TB wnl. Hepatitis panel negative. Did have some diarrhea, cdiff/occult blood negative Could consider repeat CTabd imaging vs RUQ US however DENIES abdominal pain at present. Chronic elevations 2nd to alcohol use. Monitor for hepatotoxic medications Psych to see in AM as discussed with Liaison this morning, updated significant other by phone and significant concerns w/ strength at home at or given inpatient course. Encouraged to strongly encourage rehab during their encounter as well 08/20 WBC wnl, afebrile. Last Ativan 1mg on 08/18. Most recent AWSS 1 Scheduled lasix 40mg daily for control of his cirrhosis/volume overload from admission and suspect benefit for ongoing use at discharge and will utilize over his HCTZ. HCTZ discontinued at or Mag 1.5, IV replacement ordered and increased PO slow mag to BID. Suspect from diarrheal losses/PPI use. Diarrhea slowed/negative cdiff testing. Continue increased mag PO BID at discharge Remains on valsartan/clonidine patch for BP control, BP presently stable 126/83 Was agreeable to inpatient physical therapy afternoon 08/19 and will need continued discussion --> now not agreeable, Psych req neuro consult, neuro consult noting patient alert/oriented, able to make decisions, answering questions appropriately Psych seen for clearance, able to express wishes/decide on rehab. Patient decided AGAINST acute inpatient rehab and wanting to go home but discuss w/ PCP this upcoming week about inpatient D&A, insurance did lapse and can have assistance through [facility]. Asked case management to provide information for MA application/number for [facility] in case any issues. Rxs for meds sent at or to [facility] for cost. -->Rx for BP at or : patient agreeable to continue clonidine patch - 0.3mg transdermal, changing prior to dc and discussed next change 7 days. continue valsartan and lasix 40mg PO over his HCTZ Rx for PPI BID continued and recommended he have f/u GI outpatient for surveillance/screening given his cirrhosis. No significant ascites prior to dc/SOB/hypoxia or fever/leukocytosis or abdominal pain and tolerating diet without issue. Fecal occult negative x 2. To continue vitamin replacement w/ thiamine/folate/b12 as well. avoidance of alcohol strongly encouraged and holding his home statin/zetia given LFT elevation and should be discussed with PCP in follow up. Synthroid rx at discharge, to take prior to other meds/empty stomach and repeat TFT w/ PCP and adjustments pending repeat testing Provided walker to assist with ambulation at discharge to ensure steady on his feet/avoidance of falls- seen by PT as asked to see on day of discharge to assess ambulation and to continue RW at discharge. Significant other called/updated via voicemail this morning about able to pick him up this evening given clearance and alert/oriented and answering questions appropriately. Demonstrated capacity to make decision and discharge instructions typed out thoroughly for patient for reference at discharge. Can arrange for Lyft at or if able to ensure someone to get his rx (2) Adjustment disorder with depressed mood: last seen by PCP for this 01/2023 - documented not controlled, increased lexapro to 20mg however unclear if he was actually taking this Psych on consult/to follow while inpatient Denies any SI/HI at present but very irritable at times (improved for myself 08/18 but still wanting to go home) [facility], [facility] [[email or web address] liaison saw 08/17. Would have see if decides to want to sign out AMA (3) UTI (urinary tract infection): Urine cx w/ ecoli resistant to unasyn as above and switched abx to Ancef given NPO status and will just complete course on such to ensure getting adequate treatment with his waxing/waning alertness UOP acceptable,lasix as above would complete 7 day course which should be complete 08/20 cdiff negative, less diarrhea - likely from withdrawals, improving (4) Hypertension: SIGNIFICANT HTN (notable significant LVH on ECHO as well) No CP at present time but BP remaining elevated and working on resuming home medications Valsartan has been resumed and continued Given Lasix 40mg IV on 08/17, repeated 08/18 and ordered 40mg PO for 08/19 Metoprolol discontinued as not taking at home, remains on clonidine patch and suspect helping with his mood as well and would consider continuing such at discharge Discussed w/ patient low dose diuretic w/ lasix over HCTZ at discharge and will monitor response to PO lasix -- BP presently 121/76 this afternoon Monitor (5) Acute kidney injury: Cr 1.7 on admit w/ ~1.1 baseline s/p 1L IVF in ER and continuous IVF on admission, now s/p IV lasix by Dr Garcia last week -Did provide gentle IVF 08/14-08/15 @ 60cc/hr given NPO/cognitive status but now more awake/taking PO Valsartan resumed, lasix 40mg IV on 08/17 and 08/18 and ordered PO for today Suspect could dc on lasix 40mg PO daily if continuing to tolerate/kidney function remains stable BMP in AM (6) Hypokalemia: IMPROVED/normalized on repeat. Valsartan resumed and remaining stable. Did get PO Kcl w/ IV lasix to prevent any further issues however not for today and will monitor given improvement in PO intake Monitor BMP (7) Hypomagnesemia: NORMALIZED on repeat, however have been continuing to monitor for stability and had been low on repeat/additional IV ordered 08/18 and started daily slow mag and normal on AM labs but again will repeat in AM to see if needing to increase PO to BID (8) Thrombocytopenia: Platelets 125 on arrival , down to 92 but improved/stabilized and remaining stable on repeat labs Monitor (9) Anemia: 13.2 on admission but copious IVF provided as well as multiple lab draws Iron studies w/o significant deficiency, B12 >1500. Hgb 8.4, heparin/lovenox on hold and using SCDs Fecal occult NEGATIVE, no bleeding reported. repeat fecal occult remaining negative Hgb 8.9 with continued diuretics and repeat PO dose for today and continues on B12/folate/thiamine for etoh as above Monitor (10) Elevated LFTs: MELD score calculated@17 on admission (MELD 7 on 08/15) AST, ALT, alk phos and bili elevated from prior tests, likely secondary to ongoing alcohol consumption - hepatic steatosis with possible early cirrhosis seen on CT A/P 08/12 LFTs increasing, discriminant function 4.4, no indication for steroids at this time 08/13 LFTs improving however slightly WORSE today and will monitor w/ IVF IVF ordered 08/14 w/ slight worsening in ALP to 252, stopped and taking PO now and provided lasix x1 *Notable patient had been continued on his statin however was not getting while NPO 08/12-08/14 but was given 08/15 --NOW ON HOLD FOR FURTHER 08/19- TB/DB wnl, AST/ALT/ALP elevated. No abdominal pain reported today (does have some sludge on imaging) and will monitor, continue to hold statin/ezetimibe (11) Hypothyroidism: TSH on admission elevated to 25 -Unsure if patient has been taking medication as prescribed, may need to repeat as outpatient and adjust home dosage Had missed several days while NPO and elevated to 30 on repeat (normal T4/T3 to note) but now taking PO and home dose 125mcg continued Will need repeat TFT as outpatient in next month/adjustment as needed (12) Hyperlipidemia: Continue Atorvastatin, Ezetimibe as able Placed statin on hold given elevated LFTs and can resume once normalized vs continuing to hold given underlying liver dysfunction Plan Dispo: continued inpatient stay DVT proph: SCDs continued. prior heparin placed on hold given thrombocytopenia (now improved/resolved) and lovenox given EARLINE. No evidence for DVT at present time PT eval rec rehab -- patient declined rehab but has been encouraged. Will repeat eval in AM Updated s.o Katey AM 08/19 (2) Adjustment disorder with depressed mood: (3) Thrombocytopenia: (4) Anemia: (5) Acute kidney injury: (6) Elevated LFTs: (7) Hypokalemia: (8) Hypothyroidism: (9) Hyperlipidemia: (10) Hypertension: (11) UTI (urinary tract infection): (12) Hypomagnesemia: Admission and Anticipated Discharge Date Admission Date: August 12, 2023 Subjective Evaluted this morning, had been asking for me. Walking in the halls with walker, currently declining inpatient physial rehab as wanting to go home first. Denies homicidal/suicidal thoughts at present. Denies fever/chills, chest pain, shortness of breath, abdominal pain or nausea/vomiting. Reports in [facility], year he reports "I wanna say 2013, but I know that's wrong", month intermittent September vs August. Discussed significant other able to assist with septic issues at home, but again he declines. He states he would be agreeable to home health therapy. Will have PT see today as well as psych for possible clearance. Strongly encouraged avoiding alcohol with medications - he was agreeable to continue the lasix in place of HCTZ and continue the clonidine given improvement in blood pressure with such given prior elevations. Discussed rx for medications at discharge. Questions/concerns addressed at this time. Results & Data Results & Data Vital Signs (Past 12 Hours) Vital Signs Temp Pulse Pulse Resp BP Pulse Ox O2 Del Method 08/21/23 03:24 37.2 C 72 16 126/83 95 Room Air 08/21/23 00:06 37.3 C 74 16 145/90 H 97 Room Air 08/20/23 23:11 77 08/20/23 20:11 37.1 C 74 18 123/83 97 Room Air Laboratory Results 08/21/23 08/20/23 Range/Units 06:37 06:34 WBC 6.55 (4.8-10.8) K/ul RBC 2.65 L (4.70-6.10) M/uL Hgb 8.9 L (14.0-18.0) g/dl Hct 26.9 L (42.0-52.0) % MCV 101.5 H (80.0-100.0) fL MCH 33.6 (25.0-34.0) pg MCHC 33.1 (32.0-36.0) g/dL RDW Std Deviation 63.8 H (36.4-46.3) fL RDW Coeff of Joshua 17.3 H (11.5-14.5) % Plt Count 257 (130-400) K/uL MPV 10.9 (9.4-12.4) fL PT Pending INR Pending Sodium 136 (136-145) mmol/L Potassium 3.8 (3.5-5.1) mmol/L Chloride 103 (98-107) mmol/L Carbon Dioxide 26 (21-32) mmol/L Anion Gap 7 (3-11) BUN 7 (6-23) mg/dl Creatinine 0.99 (0.6-1.4) mg/dl Est Cr Clr Drug Dosing 81.7 ml/min Est GFR ( Amer) 96.2 ml/min Est GFR (Non-Af Amer) 83.0 ml/min BUN/Creatinine Ratio 7.1 L (10-20) Glucose 95 (70-99(Fasting)) mg/dl Calcium 8.7 (8.6-10.3) mg/dl Magnesium 1.5 L (1.7-2.4) mg/dl Total Bilirubin 0.6 (0.2-1.0) mg/dl Direct Bilirubin 0.2 (0-0.2) mg/dl AST 185 H (13-39) U/L ALT 53 H (7-52) U/L Alkaline Phosphatase 236 H (34-104) U/L Total Creatine Kinase 46 (30-223) U/L Total Protein 6.1 (6.0-8.3) gm/dl Albumin 3.3 L (3.4-5.0) gm/dl PG Care Time/CCT Total # of Minutes Spent Total Time Spent with Patient: Total time spent is greater than 50% in coordination of care (as documented) at patient's floor/unit and/or counseling patient: Coding Diagnoses Alcohol withdrawal F10.939 Adjustment disorder with depressed mood F43.21 Thrombocytopenia D69.6 Anemia D64.9 Acute kidney injury N17.9 Elevated LFTs R79.89 Hypokalemia E87.6 Hypothyroidism E03.9 Hyperlipidemia E78.5 Hypertension I10 UTI (urinary tract infection) N39.0 Hypomagnesemia E83.42
[2023-08-21 07:45] LABS: INR 1.1 (0.9-1.1); Prothrombin Time 11.9 Seconds (9.0-12.0)
--- NOTE | 2023-08-21 07:47 | Hospitalist Progress Note ---
Date of Service August 21, 2023 Assessment & Plan Admission and Anticipated Discharge Date Admission Date: August 12, 2023 Results & Data Results & Data Vital Signs (Past 12 Hours) Vital Signs Temp Pulse Pulse Resp BP BP Pulse Ox 08/21/23 07:39 36.5 C 66 18 128/87 93 08/21/23 03:24 37.2 C 72 16 126/83 95 08/21/23 00:06 37.3 C 74 16 145/90 H 97 08/20/23 23:11 77 08/20/23 20:11 37.1 C 74 18 123/83 97 O2 Del Method 08/21/23 07:39 Room Air 08/21/23 03:24 Room Air 08/21/23 00:06 Room Air 08/20/23 23:11 08/20/23 20:11 Room Air PG Care Time/CCT Total # of Minutes Spent Total Time Spent with Patient: Total time spent is greater than 50% in coordination of care (as documented) at patient's floor/unit and/or counseling patient: Coding
[2023-08-21] MEDS: MAGNESIUM SULFATE / D5W 1 GM/100 ML BAG IV SCH (08:08)
[2023-08-21] MEDS: MAGNESIUM CHLORIDE W/CALCIUM 64MG DELAYED REL TAB PO SCH (08:14)
[2023-08-21] MEDS: FUROSEMIDE 40 MG TAB PO SCH (08:50)
--- NOTE | 2023-08-21 10:00 | Neurology Consultation ---
Date of Consultation August 21, 2023 Assessment & Plan (1) Alcohol withdrawal: History of Present Illness Attending Physician: Tamy Hernandez MD History of Present Illness pt this morning alert and not in distress. pt not sure why neurology consulted. pt without seizure and no confusion. chart reviewed. admission HPI:Alexei Adams is a 58 year-old male with past medical history including asthma, hypothyroidism, adjustment disorder with depressed mood, allergic rhinitis, anxiety, Hunter's esophagus, chronic cough, colon polyps, hiatal hernia, obstructive sleep apnea, periodic limb movements of sleep, small airways disease, hypertension, alcohol use disorder, hyperlipidemia and GERD. He was brought in by EMS due to concern for ongoing drinking and inability for him to care for himself. Patient endorses drinking 1 pint of vodka per day (last drink was at 6pm), per prior documentation there was concern that patient was not eating for several days at a time and was only leaving the house to buy alcohol. Patient states he used to go to [facility] but has not been going as of late. He denies any specific reason that he has stopped taking his naltrexone and going to [facility]. He states he knows that he drinks too much and would like to stop, but is not interested in going to rehab at this time. Patient denies any nausea/vomiting/abdominal pain/urinary changes. Denies SI or HI at this time. Patient denies any prior history of seizures with alcohol withdrawal. Allergies Allergy/AdvReac Type Severity Reaction Status Date / Time Sulfa (Sulfonamide Allergy Mild HIVES Verified 08/12/23 02:12 Antibiotics) MARGARET Inhibitors Allergy Unknown COUGH Verified 08/12/23 02:12 amlodipine Allergy Unknown FATIGUE Verified 08/12/23 02:12 clonidine Allergy Unknown HEADACHES Verified 08/12/23 02:12 varenicline [From Chantix] Allergy Unknown Unknown Verified 08/12/23 02:12 Home Medications Medication Instructions Recorded Confirmed Type ezetimibe 10 mg tablet 10 mg PO HS 07/29/21 08/12/23 History atorvastatin 40 mg tablet 40 mg PO QPM #90 tabs 09/01/22 08/12/23 Rx omeprazole 40 mg capsule,delayed 40 mg PO QPM #90 caps 09/01/22 08/12/23 Rx release multivitamin 1 tab PO QAM 11/10/22 08/12/23 History tadalafil 5 mg tablet 5 mg PO DAILY PRN Erectile 11/10/22 08/12/23 History Dysfunction valsartan 320 1 tab PO QAM 11/10/22 08/12/23 History mg-hydrochlorothiazide 12.5 mg tablet levothyroxine 125 mcg tablet 125 mcg PO QAM #90 tabs 12/27/22 08/12/23 Rx valacyclovir 1 gram tablet 1,000 mg PO TID #21 tabs 05/31/23 08/12/23 Rx (Valtrex) escitalopram oxalate 20 mg tablet 20 mg PO QPM #90 tabs 06/09/23 08/12/23 Rx disulfiram 250 mg tablet See Rx Instructions .Route 06/28/23 08/12/23 Rx .COMPLEX #60 tabs albuterol sulfate 90 mcg/actuation See Rx Instructions .Route 06/30/23 08/12/23 Rx aerosol inhaler .COMPLEX #18 ea Patient History Medical History (Updated 08/21/23 @ 10:15 by Figueroa Valladares MD) Prediabetes Presumed- Hgb A1C 6.3 on 10/12/22 Coronary artery calcification seen on CAT scan chest CT 03/2020 negative stress test 06/2021 Alcohol abuse Adjustment disorder with depressed mood Allergic rhinitis Anxiety Barretts esophagus Chronic cough Hiatal hernia Obstructive sleep apnea no device Periodic limb movements of sleep Small airways disease prn inhaler for this > rare res inh use Hypothyroidism GERD (gastroesophageal reflux disease) Hyperlipidemia Hypertension Surgical History S/P wrist surgery R WRIST REPAIR OF TORN TENDON Hx of vasectomy History of colonoscopy History of esophagogastroduodenoscopy (EGD) History of appendectomy History of tooth extraction WISDOM TEETH History of tonsillectomy S/P LASIK surgery of both eyes History of lumbar spinal fusion Family History Father Alcohol abuse COPD (chronic obstructive pulmonary disease) Hypertension Reported family history of early sudden deaths Mother Hypertension Hyperlipidemia Brother Hypertension Sister Graves' disease Social History Smoking Status: Current every day smoker Tobacco Type: Cigarettes Cigarettes Per Day: 1 ppd; Second Hand Exposure: No; Do You Dip or Chew Tobacco: No; Hx Alcohol Use: No Hx Substance Use: Yes Substance Use Type Other:: medical card very occasional Preferred Language: Romansh Communication Ability: Effective Visual Impairment: Limited Hearing Ability: Normal Building Contractor Required: No Beliefs That Will Affect Care: None marital status: Current Living Situation: Significant Other Current Living Situation Comment: LIVES WITH GIRLFRIEND current occupational status: employed current occupation: [employer] Feels Safe at Home: Yes Childhood Exposure to Second-Hand Smoke: No caffeine: Yes Dental Care, Regularly: Yes Physical Activity Frequency: Does not Exercise Seatbelt Use: always Sunscreen Use: No Assistive Devices: None Exam (Neuro) Physical Exam: HEENT: normocephalic Neuro: Mental: AOx4, fluent speech, normal comprehension, no apraxia, no L/R confusion, no neglect. good conversation skills. CN: PERRL, Full EOM, symmetric face, intact sensation t/o face, midline T/U/P, 5/5 SCM/traps. Motor: No abnormal movements, normal tone and bulk, 5/5 t/o bilaterally Coord: intact b/l Gait:deferred Impression: 58 yo male with severe alcohol abuse hx and recent admission for alcohol withdrawal, UTI and seizure. pt currently doing well without sign of seizure. Pt is not encephalopathic and he is coherent to answering questions logically. Recommendations: Not much to add from neurology at this point. hospitalist and psychiatry can make medical decision for his rehab and future treatment at this point. i do not see need for further neurological work up at this point as pt is not confused or encephalopathic. call again if new question. Chart reviewed I have spent more than 50% educating patient about potential diagnosis and neurological evaluation and coordinating care with patient's treatment team. Total time spent (including chart review and coordination of care): 45 min (this includes chart review). Results & Data Vital Signs (Past 12 Hours) Vital Signs Temp Pulse Pulse Resp BP BP Pulse Ox 08/21/23 07:39 36.5 C 66 18 128/87 93 08/21/23 06:00 72 08/21/23 03:24 37.2 C 72 16 126/83 95 08/21/23 00:06 37.3 C 74 16 145/90 H 97 08/20/23 23:11 77 O2 Del Method 08/21/23 07:39 Room Air 08/21/23 06:00 08/21/23 03:24 Room Air 08/21/23 00:06 Room Air 08/20/23 23:11 PG Care Time/CCT Total # of Minutes Spent Total Time Spent with Patient: Total time spent is greater than 50% in coordination of care (as documented) at patient's floor/unit and/or counseling patient: Coding Level of Care Code 60119 IN/OBS CONSULT LVL 3,45M Diagnoses Alcohol withdrawal syndrome without complication F10.930 Complication of substance-induced condition: uncomplicated (1) Alcohol withdrawal Complication of substance-induced condition: uncomplicated Qualified Code(s): F10.930 - Alcohol use, unspecified with withdrawal, uncomplicated
--- NOTE | 2023-08-21 14:34 | Psychiatric Consultation ---
Date of Consultation August 21, 2023 Impression / Recommendations Impression 58 yo male with little formal psych hx, hx of rx of antabuse for ETOH recovery and relapse after period of non compliance. Unclear when last appointment occurred at [facility]. Overall, I spent a total of 40 minutes with this case, including review of chart, direct evaluation of the patient, coordination with nursing,coordination of care with hospitalist service, and documentation. (1) Alcohol withdrawal: Patient has come through his acute withdrawal and is now ready to go to physical rehab. Complication of substance-induced condition: uncomplicated Qualified Code(s): F10.930 - Alcohol use, unspecified with withdrawal, uncomplicated Plan There is no evidence of acute psychotic condition or that his alcohol use was a suicidal gesture. Patient does not meet criteria for inpatient psychiatric hospitalization. Patient would benefit from substance abuse treatment and this should be offered to him. At the time of the interview, patient did have the capacity to make the decision to go to inpatient physical rehab or to go home. He is being evasive about his motives, but does understand what he is doing. There is likely secondary gain for him from going home vs going to inpatient rehab. He understands the risks and benefits of his choices. He can be discharged from the point of view of psychiatry. Psych History Chief Complaint "I have things to do at home". History of Present Illness 58 year old male with past psychiatric history of alcohol dependence who presented due to increased drinking leading to poor self care. Patient was admitted to the medical floor and stabilized. He reportedly had a seizure. Since that time, the patient has responded to treatment and has improved and stabilized to the point where he can be discharged from the hospital. His primary team appropriately wants him to go to physical rehab but the patient is resisting. He reportedly agrees to go, the states he won't go, but at the time of my interview he stated that he is again intending to go. However, he is being evasive and only superficially cooperative: when I questioned him further he admitted that he will go to rehab only after he goes home first because "I have things to do at home". I told him that going to rehab was usually directly from the hospital rather than going home first. I asked him what things he needed to do. He replied that his septic system was backed up and he needed to pay some bills. I was skeptical of the idea that he could safely do this work in his weakened state but also stated that jesus could be taken care of online. I believe the patient was being purposely evasive however he is fully aware of what he is saying and recognizes the risks he is taking but he does not care. I discussed alcohol rehab with him and he admitted that he has been in treatment before. He was only able to tell me of one occasion when he was abstinent for a month. He showed no interest in going to alcohol rehab treatment again. Allergies Allergy/AdvReac Type Severity Reaction Status Date / Time Sulfa (Sulfonamide Allergy Mild HIVES Verified 08/12/23 02:12 Antibiotics) MARGARET Inhibitors Allergy Unknown COUGH Verified 08/12/23 02:12 amlodipine Allergy Unknown FATIGUE Verified 08/12/23 02:12 clonidine Allergy Unknown HEADACHES Verified 08/12/23 02:12 varenicline [From Chantix] Allergy Unknown Unknown Verified 08/12/23 02:12 Home Medications Medication Instructions Recorded Confirmed Type ezetimibe 10 mg tablet 10 mg PO HS 07/29/21 08/12/23 History atorvastatin 40 mg tablet 40 mg PO QPM #90 tabs 09/01/22 08/12/23 Rx multivitamin 1 tab PO QAM 11/10/22 08/12/23 History tadalafil 5 mg tablet 5 mg PO DAILY PRN Erectile 11/10/22 08/12/23 History Dysfunction valsartan 320 1 tab PO QAM 11/10/22 08/12/23 History mg-hydrochlorothiazide 12.5 mg tablet valacyclovir 1 gram tablet 1,000 mg PO TID #21 tabs 05/31/23 08/12/23 Rx (Valtrex) escitalopram oxalate 20 mg tablet 20 mg PO QPM #90 tabs 06/09/23 08/12/23 Rx disulfiram 250 mg tablet See Rx Instructions .Route 06/28/23 08/12/23 Rx .COMPLEX #60 tabs albuterol sulfate 90 mcg/actuation See Rx Instructions .Route 06/30/23 08/12/23 Rx aerosol inhaler .COMPLEX #18 ea clonidine 0.3 mg/24 hr weekly 1 patch transdermal Q7D #4 ea 08/21/23 Rx transdermal patch cyanocobalamin (vitamin B-12) 500 500 mcg PO QAM #30 tabs 08/21/23 Rx mcg tablet folic acid 1 mg tablet 1 mg PO QAM #30 tabs 08/21/23 Rx furosemide 40 mg tablet 40 mg PO QAM #30 tabs 08/21/23 Rx levothyroxine 125 mcg tablet 125 mcg PO QAM #30 tabs 08/21/23 Rx magnesium chloride 64 mg 64 mg PO BID #60 tabs 08/21/23 Rx (magnesium chloride) tablet,delayed release (Mag 64) omeprazole 40 mg capsule,delayed 40 mg PO BID #60 caps 08/21/23 Rx release thiamine HCl (vitamin B1) 100 mg 100 mg PO BID #60 tabs 08/21/23 Rx tablet valsartan 80 mg tablet (Diovan) 320 mg (4 x 80 mg) PO QAM 30 days 08/21/23 Rx #120 tabs Patient History Medical History (Updated 08/21/23 @ 10:15 by Figueroa Valladares MD) Prediabetes Presumed- Hgb A1C 6.3 on 10/12/22 Coronary artery calcification seen on CAT scan chest CT 03/2020 negative stress test 06/2021 Alcohol abuse Adjustment disorder with depressed mood Allergic rhinitis Anxiety Barretts esophagus Chronic cough Hiatal hernia Obstructive sleep apnea no device Periodic limb movements of sleep Small airways disease prn inhaler for this > rare res inh use Hypothyroidism GERD (gastroesophageal reflux disease) Hyperlipidemia Hypertension Surgical History S/P wrist surgery R WRIST REPAIR OF TORN TENDON Hx of vasectomy History of colonoscopy History of esophagogastroduodenoscopy (EGD) History of appendectomy History of tooth extraction WISDOM TEETH History of tonsillectomy S/P LASIK surgery of both eyes History of lumbar spinal fusion Family History Father Alcohol abuse COPD (chronic obstructive pulmonary disease) Hypertension Reported family history of early sudden deaths Mother Hypertension Hyperlipidemia Brother Hypertension Sister Graves' disease Social History Smoking Status: Current every day smoker Tobacco Type: Cigarettes Cigarettes Per Day: 1 ppd; Second Hand Exposure: No; Do You Dip or Chew Tobacco: No; Hx Alcohol Use: No Hx Substance Use: Yes Substance Use Type Other:: medical card very occasional Preferred Language: Belarusian Communication Ability: Effective Visual Impairment: Limited Hearing Ability: Normal Physician Scientist Required: No Beliefs That Will Affect Care: None marital status: Current Living Situation: Significant Other Current Living Situation Comment: LIVES WITH GIRLFRIEND current occupational status: employed current occupation: [employer] Feels Safe at Home: Yes Childhood Exposure to Second-Hand Smoke: No caffeine: Yes Dental Care, Regularly: Yes Physical Activity Frequency: Does not Exercise Seatbelt Use: always Sunscreen Use: No Assistive Devices: None Physical Exam Psychiatric: Orientation: alert and oriented x 3 Apperance: + disheveled Eye Contact: good eye contact Motor Behavior: no abnormal motor movements Speech: normal rate/rhythm/volume of speech (slurred) Affect: euthymic affect Mood: no depressed mood Thought Process: + concrete thought process Thought Content: reality based without delusions; not paranoid and no delusions Suicidal Thoughts: denies suicidal thoughts Homicidal Thoughts: denies homicidal thoughts Hallucinations: no auditory hallucinations and no visual hallucinations Cognition: attention grossly intact and language grossly intact Estimated Intelligence: consistent with education level Insight: + limited insight Judgment: + limited judgement Vital Signs (Past 24 Hours): Last Vital Signs Temp 36.6 C 08/21/23 11:34 Pulse 65 08/21/23 11:34 Resp 18 08/21/23 11:34 BP 103/71 08/21/23 11:34 Pulse Ox 96 08/21/23 11:34 O2 Del Method Room Air 08/21/23 11:34 O2 Flow Rate 1 08/16/23 20:14 Results & Data (PSY) Medications Administered Acetaminophen (Acetaminophen 325 Mg Tab) 650 mg PO Q4H PRN PRN Reason: Pain or Fever Stop: 09/11/23 03:56 Last Admin: 08/20/23 23:58 Dose: 650 mg Documented By: GERALD Atorvastatin Calcium (Atorvastatin 40 Mg Tab) 40 mg PO QPM [facility]EEM Stop: 09/11/23 20:59 Last Admin: 08/16/23 20:02 Dose: 40 mg Documented By: Admin: 08/15/23 20:07 Dose: Not Given Documented By: TMAnuradha Admin: 08/14/23 19:57 Dose: Not Given Documented By: Admin: 08/13/23 21:34 Dose: Not Given Documented By: Admin: 08/12/23 21:29 Dose: 40 mg Documented By: MARY Clonidine HCl (Clonidine Hcl 0.3 Mg/24 Hr Transderm Sys) 1 patch TD Q7D [facility] Stop: 09/13/23 14:59 Last Admin: 08/14/23 15:23 Dose: 1 patch Documented By: SASHA(2) Cyanocobalamin (Cyanocobalamin (B-12) 500 Mcg Tablet) 500 mcg PO QAM [facility] Stop: 09/18/23 08:59 Last Admin: 08/21/23 08:13 Dose: 500 mcg Documented By: Admin: 08/20/23 08:56 Dose: 500 mcg Documented By: Admin: 08/19/23 08:09 Dose: 500 mcg Documented By: MAXIMILIANO Ezetimibe (Ezetimibe 10 Mg Tab) 10 mg PO [facility] Stop: 09/11/23 20:59 Last Admin: 08/17/23 20:36 Dose: 10 mg Documented By: Admin: 08/16/23 20:01 Dose: 10 mg Documented By: Admin: 08/15/23 20:07 Dose: Not Given Documented By: Admin: 08/14/23 19:57 Dose: Not Given Documented By: Admin: 08/13/23 21:34 Dose: Not Given Documented By: Admin: 08/12/23 21:29 Dose: 10 mg Documented By: MARY Escitalopram Oxalate (Escitalopram Oxalate 20 Mg Tab) 20 mg PO QPM [facility] Stop: 09/11/23 20:59 Last Admin: 08/20/23 20:30 Dose: 20 mg Documented By: Admin: 08/19/23 20:30 Dose: 20 mg Documented By: Admin: 08/18/23 20:30 Dose: 20 mg Documented By: Admin: 08/17/23 20:36 Dose: 20 mg Documented By: Admin: 08/16/23 20:02 Dose: 20 mg Documented By: Admin: 08/15/23 20:07 Dose: Not Given Documented By: Admin: 08/14/23 19:57 Dose: Not Given Documented By: Admin: 08/13/23 21:34 Dose: Not Given Documented By: Admin: 08/12/23 21:29 Dose: 20 mg Documented By: MARY Folic Acid (Folic Acid 1 Mg Tab) 1 mg PO [facility] Stop: 09/18/23 08:59 Last Admin: 08/21/23 08:13 Dose: 1 mg Documented By: Admin: 08/20/23 08:53 Dose: 1 mg Documented By: Admin: 08/19/23 08:10 Dose: 1 mg Documented By: MAXIMILIANO Furosemide (Furosemide 40 Mg Tab) 40 mg PO [facility] Stop: 09/20/23 08:59 Last Admin: 08/21/23 08:50 Dose: 40 mg Documented By: AMNA Hydralazine HCl (Hydralazine Hcl 20 Mg/Ml Vial) 10 mg IV Q6H PRN PRN Reason: hypertension Stop: 09/14/23 10:36 Last Admin: 08/17/23 12:44 Dose: 10 mg Documented By: Admin: 08/16/23 20:50 Dose: 10 mg Documented By: Admin: 08/16/23 14:41 Dose: 10 mg Documented By: Admin: 08/16/23 09:00 Dose: 10 mg Documented By: Admin: 08/16/23 03:25 Dose: 10 mg Documented By: Admin: 08/15/23 20:39 Dose: 10 mg Documented By: FIDE Cefazolin Sodium (Ancef 2000mg) 2,000 mg in 15 mls @ 3.75 mls/min IV Q8H [facility] Stop: 08/25/23 11:59 Last Admin: 08/21/23 12:07 Dose: 3.75 mls/min Documented By: Admin: 08/21/23 04:22 Dose: 3.75 mls/min Documented By: Admin: 08/20/23 20:30 Dose: 3.75 mls/min Documented By: Admin: 08/20/23 12:40 Dose: 3.75 mls/min Documented By: Admin: 08/20/23 04:22 Dose: 3.75 mls/min Documented By: Admin: 08/19/23 19:46 Dose: 3.75 mls/min Documented By: Admin: 08/19/23 12:22 Dose: 3.75 mls/min Documented By: Admin: 08/19/23 04:05 Dose: 3.75 mls/min Documented By: Admin: 08/18/23 19:42 Dose: 3.75 mls/min Documented By: Admin: 08/18/23 13:27 Dose: 3.75 mls/min Documented By: Admin: 08/18/23 04:24 Dose: 3.75 mls/min Documented By: Admin: 08/17/23 19:44 Dose: 3.75 mls/min Documented By: Admin: 08/17/23 11:24 Dose: 3.75 mls/min Documented By: Admin: 08/17/23 03:53 Dose: 3.75 mls/min Documented By: Admin: 08/16/23 20:32 Dose: 3.75 mls/min Documented By: Admin: 08/16/23 11:27 Dose: 3.75 mls/min Documented By: Admin: 08/16/23 03:25 Dose: 3.75 mls/min Documented By: Admin: 08/15/23 20:26 Dose: 3.75 mls/min Documented By: Admin: 08/15/23 11:38 Dose: 3.75 mls/min Documented By: SASHA(2) Lorazepam 1 mg/ Syringe 1 mls @ 2 mls/min IV UD PRN; Protocol PRN Reason: EtOH Withdrawal AWSS Score 6,7 Stop: 09/17/23 08:17 Last Admin: 08/19/23 01:23 Dose: 2 mls/min Documented By: Admin: 08/18/23 13:28 Dose: 2 mls/min Documented By: MAXIMILIANO Levothyroxine Sodium (Levothyroxine Sodium 125 Mcg Tablet) 125 mcg PO DAILYBB [facility] Stop: 09/11/23 06:29 Last Admin: 08/21/23 05:34 Dose: 125 mcg Documented By: Admin: 08/20/23 05:43 Dose: 125 mcg Documented By: Admin: 08/19/23 06:29 Dose: 125 mcg Documented By: Admin: 08/18/23 05:55 Dose: 125 mcg Documented By: Admin: 08/17/23 05:25 Dose: 125 mcg Documented By: Admin: 08/16/23 05:28 Dose: Not Given Documented By: Admin: 08/15/23 05:37 Dose: Not Given Documented By: Admin: 08/14/23 08:45 Dose: Not Given Documented By: SASHA(2) Admin: 08/13/23 06:07 Dose: 125 mcg Documented By: Admin: 08/12/23 08:11 Dose: 125 mcg Documented By: HEIDI Magnesium Chloride (Magnesium Chloride W/Calcium 64mg Delayed Rel Tab) 64 mg PO BID [facility] Stop: 09/20/23 08:59 Last Admin: 08/21/23 08:14 Dose: 64 mg Documented By: AMNA Metoprolol Tartrate (Metoprolol Tartrate 25 Mg Tab) 25 mg PO BID [facility] Stop: 09/16/23 20:59 Last Admin: 08/19/23 08:09 Dose: 25 mg Documented By: Admin: 08/18/23 20:30 Dose: 25 mg Documented By: Admin: 08/18/23 07:51 Dose: 25 mg Documented By: Admin: 08/17/23 20:35 Dose: 25 mg Documented By: GERALD Miscellaneous (Check Clonidine Patch Placement) 1 each N/A QS [facility] Stop: 09/13/23 15:59 Last Admin: 08/21/23 07:35 Dose: 1 each Documented By: Admin: 08/21/23 00:05 Dose: 1 each Documented By: Admin: 08/20/23 16:28 Dose: 1 each Documented By: Admin: 08/20/23 08:51 Dose: 1 each Documented By: Admin: 08/20/23 00:10 Dose: 1 each Documented By: Admin: 08/19/23 16:42 Dose: 1 each Documented By: Admin: 08/19/23 08:08 Dose: 1 each Documented By: Admin: 08/19/23 00:00 Dose: 1 each Documented By: Admin: 08/18/23 16:27 Dose: 1 each Documented By: Admin: 08/18/23 07:49 Dose: 1 each Documented By: Admin: 08/18/23 00:00 Dose: 1 each Documented By: Admin: 08/17/23 16:26 Dose: 1 each Documented By: Admin: 08/17/23 07:17 Dose: 1 each Documented By: Admin: 08/16/23 22:57 Dose: 1 each Documented By: Admin: 08/16/23 14:43 Dose: 1 each Documented By: Admin: 08/16/23 07:38 Dose: 1 each Documented By: Admin: 08/16/23 00:43 Dose: 1 each Documented By: Admin: 08/15/23 15:17 Dose: 1 each Documented By: SASHA(2) Admin: 08/15/23 07:11 Dose: 1 each Documented By: SASHA(2) Admin: 08/15/23 00:01 Dose: 1 each Documented By: Admin: 08/14/23 15:24 Dose: 1 each Documented By: SASHA(2) Miscellaneous (Remove Clonidine Patch) 1 each N/A CQWK [facility] Stop: 09/13/23 14:59 Last Admin: 08/18/23 04:24 Dose: 1 each Documented By: Admin: 08/16/23 00:43 Dose: 1 each Documented By: Admin: 08/14/23 15:24 Dose: Not Given Documented By: SASHA(2) Miscellaneous (Remove Nicoderm Patch) 1 each N/A DAILY@0859 [facility] Stop: 09/16/23 08:58 Last Admin: 08/21/23 08:13 Dose: 1 each Documented By: Admin: 08/20/23 08:51 Dose: 1 each Documented By: Admin: 08/19/23 08:08 Dose: 1 each Documented By: Admin: 08/18/23 08:15 Dose: 1 each Documented By: Admin: 08/17/23 07:17 Dose: 1 each Documented By: NAA Nicotine (Nicotine 14 Mg/24 Hr Patch) 14 mg TD DAILY [facility] Stop: 09/16/23 00:29 Last Admin: 08/21/23 08:14 Dose: 14 mg Documented By: Admin: 08/20/23 08:52 Dose: 14 mg Documented By: Admin: 08/19/23 08:09 Dose: 14 mg Documented By: Admin: 08/18/23 07:50 Dose: 14 mg Documented By: Admin: 08/17/23 07:18 Dose: 14 mg Documented By: Admin: 08/17/23 01:30 Dose: 14 mg Documented By: PHILIP Pantoprazole Sodium (Pantoprazole 40 Mg Tab) 40 mg PO BID [facility] Stop: 09/19/23 20:59 Last Admin: 08/21/23 08:14 Dose: 40 mg Documented By: Admin: 08/20/23 20:30 Dose: 40 mg Documented By: GERALD Phenobarbital Sodium (Phenobarbital Sodium 65 Mg/Ml Vial) 65 mg IM Q4H PRN PRN Reason: AWSS greater than 8 Last Admin: 08/16/23 20:46 Dose: 65 mg Documented By: PHILIP Thiamine HCl (Thiamine Hcl 100 Mg Tab) 100 mg PO BID [facility] Stop: 09/18/23 20:59 Last Admin: 08/21/23 08:14 Dose: 100 mg Documented By: Admin: 08/20/23 20:30 Dose: 100 mg Documented By: Admin: 08/20/23 08:55 Dose: 100 mg Documented By: Admin: 08/19/23 20:30 Dose: 100 mg Documented By: GERALD Valsartan (Valsartan 80 Mg Tab) 320 mg PO QAM [facility] Stop: 09/11/23 08:59 Last Admin: 08/21/23 08:15 Dose: 320 mg Documented By: Admin: 08/20/23 08:54 Dose: 320 mg Documented By: Admin: 08/19/23 08:10 Dose: 320 mg Documented By: Admin: 08/18/23 07:51 Dose: 320 mg Documented By: Admin: 08/17/23 07:17 Dose: 320 mg Documented By: Admin: 08/16/23 07:39 Dose: Not Given Documented By: Admin: 08/15/23 07:15 Dose: Not Given Documented By: SASHA(2) Admin: 08/14/23 08:44 Dose: Not Given Documented By: SASHA(2) Admin: 08/13/23 10:24 Dose: 320 mg Documented By: Admin: 08/12/23 08:13 Dose: 320 mg Documented By: HEIDI Coding [place] [address] Office/OBS Consult Lvl 1 Patient Type Established History Problem Focused Exam Problem Focused Medical Decision Making Low Complexity Diagnoses Alcohol withdrawal syndrome without complication F10.930 Complication of substance-induced condition: uncomplicated Time Spent (min) 30
--- NOTE | 2023-08-21 16:46 | Discharge Summary ---
Date of Service August 21, 2023 Admission HPI Per Admitting Provider Alexei Adams is a 58 year-old male with past medical history including asthma, hypothyroidism, adjustment disorder with depressed mood, allergic rhinitis, anxiety, Hutner's esophagus, chronic cough, colon polyps, hiatal hernia, obstructive sleep apnea, periodic limb movements of sleep, small airways disease, hypertension, alcohol use disorder, hyperlipidemia and GERD. He was brought in by EMS due to concern for ongoing drinking and inability for him to care for himself. Patient endorses drinking 1 pint of vodka per day (last drink was at 6pm), per prior documentation there was concern that patient was not ea ting for several days at a time and was only leaving the house to buy alcohol. Patient states he used to go to [facility] but has not been going as of late. He denies any specific reason that he has stopped taking his naltrexone and going to [facility]. He states he knows that he drinks too much and would like to stop, but is not interested in going to rehab at this time. Patient denies any nausea/vomiting/abdominal pain/urinary changes. Denies SI or HI at this time. Patient denies any prior history of seizures with alcohol withdrawal. Admission Exam Per Admitting Provider Constitutional: WD/WN, vitals as above Eyes: + anicteric sclerae; no conjunctival abn ormality ENMT: Ears: no external ear abnormality Nose: no external nose abnormality moist mucous membranes Respiratory: normal respiratory effort, lungs clear to auscultation Cardiovascular: Rate/Rhythm: regular rate and regular rhythm No lower extremity edema Gastrointestinal (Abdomen): Inspection/Auscultation: abdomen normal to inspection; abdomen not distended Percussion/Palpation: abdomen soft; abdomen nontender Skin: no rashes, warm and dry no jaundice Psychiatric: Orientation: alert and oriented x 3 Affect: + flat affect Principal Diagnosis Alcohol withdrawal, withdrawal seizure, UTI Discharge Exam General: 58 yo male laying in bed on his side, appearing alert/oriented/improved, NAD and tolerating diet, awaiting discharge today Head atraumatic, normocephalic, mmm, trachea midline Resp: even/unlabored, slightly diminished in the bases but no w/c/r, on room air 96% CV: RRR, no significant m/r/g, no pitting edema/calf tenderness GI: +BS, soft, slight distension but nontender, no guarding/rigidity : no funez, voiding in urinal spontaneously MSK/Neuro: nonfocal, generalized weakness, strength 4/5 bilaterally, some atrophy to his leg muscles noted, CN intact grossly, no tremor Psych: alert/oriented, flat affect at times and wanting to go home but denied any SI/HI, agreeable to follow up with [facility] and PCP to consider D&A rehab at discharge Discharge Data Allergies Allergy/AdvReac Type Severity Reaction Status Date / Time Sulfa (Sulfonamide Allergy Mild HIVES Verified 08/12/23 02:12 Antibiotics) MARGARET Inhibitors Allergy Unknown COUGH Verified 08/12/23 02:12 amlodipine Allergy Unknown FATIGUE Verified 08/12/23 02:12 clonidine Allergy Unknown HEADACHES Verified 08/12/23 02:12 varenicline [From Chantix] Allergy Unknown Unknown Verified 08/12/23 02:12 Consultations 08/12/23 01:18 ED Decision to Admit Stat 08/14/23 13:59 Consult Hydro Plant Technician Routine 08/19/23 06:57 Consult Behavioral Health Liaison Routine 08/20/23 10:35 Consult Psychiatry Routine 08/21/23 09:32 Consult Neurology Routine Ordered Studies Cervical Spine CT 08/12/23 05:59 CT cervical spine wo con CLINICAL HISTORY: 58 years-old Male with direct fall to face toilet with siezure. Acute neck pain status post fall COMPARISON: Head CT of same day TECHNIQUE: Multiple axial CT images of the cervical spine were obtained without contrast. A dose lowering technique was utilized adhering to the principles of ALARA. FINDINGS: Grade 1 anterolisthesis C3 on C4, likely secondary to chronic severe facet arthrosis. Multilevel intervertebral disc space narrowing includes moderate to severe disc space narrowing at C3-C4, C5-C6 and C6-C7 with moderate to severe multilevel facet arthrosis and moderate spondylitic spurring. Multilevel neural foraminal narrowing is suboptimally evaluated by CT technique. There is at least mild central canal stenosis at C6/C7 secondary to a large posterior disc osteophyte complex. Straightening of the normal cervical lordosis. The cervical soft tissues appear unremarkable. The visualized lung apices appear clear. IMPRESSION: No acute cervical spine fracture or subluxation. ACT 112: Negative or not required by law. The above report was generated using voice recognition software. It may contain grammatical, syntax or spelling errors. Electronically signed by: Sumit Richey M.D. 08/12/2023 7:[address] 08/12/23 05:59 CT head/brain wo con CLINICAL HISTORY: 58 years-old Male with head strike seizure. Acute head injury status post fall TECHNIQUE: Multiple axial CT images of the head were obtained without contrast. A dose lowering technique was utilized adhering to the principles of ALARA. CT DOSE: 2289.01 mGy.cm COMPARISON: 09/18/2014. FINDINGS: No acute intracranial hemorrhage, midline shift, intracranial mass, hydrocephalus, territorial ischemia or abnormal extra-axial collection. Progressive involutional changes. The calvarium is intact. Small left superior forehead frontal scalp contusion. The paranasal sinuses, mastoid air cells, and middle ear cavities are clear. IMPRESSION: 1. No acute intracranial abnormality or calvarial fracture. 2. Small left frontal scalp contusion. ACT 112: Negative or not required by law. The above report was generated using voice recognition software. It may contain grammatical, syntax or spelling errors. Electronically signed by: Sumit Richey M.D. 08/12/2023 7:14 AM Abdomen/Pelvis CT 08/12/23 06:[address] WITHOUT CONTRAST HISTORY: Acute generalized abdominal pain status post fall cirrhotic eval for ascities other abd pathology TECHNIQUE: Multiaxial CT images of the abdomen and pelvis were performed without contrast. A dose lowering technique was utilized adhering to the principles of ALARA. COMPARISON STUDY: 09/11/2013 FINDINGS: Cardiomegaly with coronary arterial calcifications. Decreased attenuation of the cardiac blood pool suggestive of anemia. Mild bibasilar groundglass densities favor atelectasis. There is no free air. Unremarkable spleen, pancreas and adrenal glands. Hyperattenuation of the gallbladder may represent biliary sludge. Hepatic steatosis with hepatomegaly. There is equivocal marginal nodularity of the liver. No hepatic mass identified. Nonspecific bilateral perinephric inflammatory stranding. No renal or ureteral calculi or hydronephrosis. Decompressed urinary bladder with wall thickening. Prostatomegaly. Fat filled inguinal hernias are noted, left greater than right. Atherosclerosis of aorta without aneurysm. No lymphadenopathy. No bowel obstruction. Scattered air-fluid levels are noted throughout the large and small bowel. Colonic diverticulosis. There is wall thickening within the large bowel are noted, with pronounced in the ascending and transverse portions. No CT evidence of acute appendicitis. Unremarkable soft tissues. No acute fracture identified. Posterior interbody rods and screw fusion with discectomy at L5-S1. There are chronic L5 pars defects with grade 1 anterolisthesis L5 on S1. IMPRESSION: 1. No acute posttraumatic intra-abdominal or intrapelvic abnormality identified. 2. Hepatic steatosis with possible early cirrhosis. 3. Mild wall thickening of the ascending and transverse colon is likely secondary to partial distention. A nonspecific colitis considered less likely. 4. Additional findings as above. ACT 112: Negative or not required by law. The above report was generated using voice recognition software. It may contain grammatical, syntax or spelling errors. Electronically signed by: Sumit Richey M.D. 08/12/2023 7:40 AM Chest X-Ray 08/13/23 20:34 XR chest 1V portable CLINICAL HISTORY: Increased respitory rate TECHNIQUE: Single frontal radiograph of the chest was obtained. Comparison: Comparison is made to chest radiograph 11/08/2022 FINDINGS: No lines and tubes are seen. The cardiomediastinal silhouette is normal. Faint bilateral airspace opacities are seen in the left midlung and right upper and midlung. The lungs are noted to be underinflated. No evidence of pleural effusion or pneumothorax. IMPRESSION: Faint bilateral airspace opacities which likely represent atelectasis with or without superimposed aspiration/pneumonia ACT 112: Negative or not required by law. Electronically signed by: David Owusu M.D. 08/14/2023 6:[address] 08/13/23 21:01 Exam(s): CT HEAD Without Contrast EXAM: CT Head Without Intravenous Contrast CLINICAL HISTORY: Reason for exam: Change in Mental Status. TECHNIQUE: Axial computed tomography images of the head/brain without intravenous contrast. CTDI is 37.78 mGy and DLP is 547.75 mGy-cm. Automated exposure control was utilized for the study. A dose lowering technique was utilized adhering to the principles of ALARA. COMPARISON: No relevant prior studies available. FINDINGS: No acute intracranial hemorrhage. No midline shift or mass effect. The [place]-white matter differentiation is maintained throughout. Age-related cerebral volume loss. Periventricular and subcortical white matter hypoattenuation, consistent with chronic microangiopathy. The visualized orbits appear grossly unremarkable. The calvarium is intact. The visualized paranasal sinuses and mastoid air cells are grossly clear. IMPRESSION: No acute intracranial hemorrhage, midline shift, or mass effect. Electronically signed by: Josiah Sanchez MD 08/13/23 21:37 PM Chest X-Ray 08/16/23 06:30 XR chest 1V portable CLINICAL HISTORY: f/u aspiration/atelectasis TECHNIQUE: Single frontal radiograph of the chest was obtained. Comparison: Comparison is made to chest radiograph 08/13/2023 FINDINGS: No lines and tubes are seen. The cardiomediastinal silhouette is normal. Lungs are better aerated on today's exam, previously noted left midlung and right upper lung remain but are less conspicuous. No evidence of pleural effusion or pneumothorax. IMPRESSION: Lungs are better aerated with improvement of bilateral airspace opacities. These may represent atelectasis, pneumonia, and/or aspiration. ACT 112: Negative or not required by law. Electronically signed by: David Owusu M.D. 08/16/2023 7:28 AM ECHOCARDIOGRAM 08/18/2023 No prior study for comparison The left ventricle is normal in size. Left ventricular systolic function is normal. EF 55-60%. The left ventricular wall motion is normal. There is severe concentric left ventricular hypertrophy. Grade I diastolic dysfunction. The right ventricle is normal in size and function. No significant valvular disease. Hospital Course (1) Alcohol withdrawal: Metabolic encephalopathy Patient reporting drinking pint of vodka daily (actually a fifth on further questioning) with last drink 08/10 around 6pm. Has previously been to [facility]/rehab. Was going to therapy at [facility] but stopped in the last month, without a reason (s/o thinks related to Losing his job) Had been on naltrexone, disulfiram in past but not taken in some time on admission (however PCP noting did have recent fill) Etoh on admission <10 Witnessed seizure on admission 08/11 inpatient and reports of ?possible witnessed seizure few days prior to admission witnessed by GF while attempting to detox himeself at home Initially on ativan protocol however switched to Phenobarbitol protocol w/ seizure activity (got 130mg IM x 1 dose on 08/13) and nothing on 08/14 but got prn IM given NPO/airway not safe on 08/15, 08/16 and switched back to Ativan AWSS following switch abx to ANcef to cover for Ecoli UTI resistant to Unasyn CT head/c-scope/abdomen without acute findings following fall Hydro Plant Technician consulted for consideration transfer/precedex however rec'd to give etoh through [facility] however reduced LOC/unsafe and improvement w/ tx of UTI and switching back to ativan AWSS protocol Was given IVF while npo and volume overloaded subsequently, lasix IV x 1 and gentle IVF while NPO w/ supplemental O2 and started tolerating diet again on 08/16, soft/bite size initially and IV lasix provided subsequently with resumption of some of his home antiHTN agents (utilized clonidine patch while NPO per [facility] [place] and added IV hydralazine) Then daily lasix 40mg PO ordered at time of eval daily w/ return back to baseline w/o volume overload and switched his HCTZ to furosemide as below Continued electrolyte replacement was undertaken and improvement in labs and normalization in renal function given EARLINE on admission with exception of magnesium and PO started/increased as below and continued at discharge On day of discharge: WBC wnl, afebrile. Last Ativan 1mg on 08/18. Most recent AWSS 1, VSS with BP 126/83, pulse 65bpm, RR 18, temp 36.6C, 96% on RA. No tremor or evidence for active DT and is irritable and wanting to go home and declining rehab which he was agreeable to on 08/19 however this was during discussion with ex- and significant other at bedside and suspect he had no intentions of pursuing inpatient physical rehab. Ex/SO concerns about ambulation/weakness at discharge and going home but discussed about evals and if alert/oriented and demonstrating understands risks could be discharged with outpatient follow up and encouragement of alcohol cessation and follow up with outpatient D&A rehab as well as psych/PCP. Patient alert/oriented and answering questions appropriately AM 08/20 and wanting to go home. Discussed would have therapy evals undertaken and discussed with psych about seeing prior to discharge. Psych req neuro consult, placed. neuro consult noting patient alert/oriented, able to make decisions, answering questions appropriately/no further testing or eval warranted -- see note Psych seen for clearance, able to express wishes/decide on rehab. * Patient decided AGAINST acute inpatient rehab and wanting to go home but discuss w/ PCP this upcoming week about inpatient D&A, insurance did lapse and can have assistance through [facility]. Asked case management to provide information for MA application/number for [facility] in case any issues. Asked PT to see patient prior to potential discharge and made improvements but should be utilizing RW at discharge and were able to provide this to patient, delivered to patient in room. To continue HHPT, however issues with insurance/lapse given lost job earlier this year. Again, declined inpatient rehab/SNF at present time, wanting to go home. Significant other called/updated via voicemail this morning about able to pick him up this evening given clearance and alert/oriented and answering questions appropriately. Demonstrated capacity to make decision and discharge instructions typed out thoroughly for patient for reference at discharge. Can arrange for Lyft at nd if able to ensure someone to get his rx Prior to dc, electrolyte/kidney function stable w/ exception mag 1.5- no issues /arrhythmia on monitor or reported palpitations - IV replacement ordered and increased PO slow mag to BID. Suspect 2nd to PPI use/etoh and cdiff testing negative and continue PO BID slow mag at nd. No further reports of diarrhea Remained on valsartan/clonidine patch for BP control, BP presently stable 126/83. -Allergy listed to clonidine but has had in place and denied GRANGER and continued. Changed patch prior to dc and next change due 7 days (08/27). To continue vitamin replacement w/ thiamine/folate/b12 as well. Avoidance of alcohol strongly encouraged Continued to hold his home statin/zetia given LFT elevation and should be discussed with PCP in follow up. Regarding medications at discharge: -HCTZ discontinued, however had been giving IV/PO lasix prior for volume overload, now improved/stable on daily 40mg PO lasix without hypokalemia or EARLINE/elevation in BUN and tolerating diet without issue. Suspect better effect given his underlying cirrhosis, but also discussed should have eventual f/u GI for surveillance/screening w/ EGD/c-scope which can be further discussed w/ PCP in follow up (appointment this upcoming per CM) Rxs for meds sent at nd to [facility] for cost -- clonidine patch, refill of his valsartan. Lasix 40mg PO daily as above. PPI, but increased to BID. No significant ascites prior to dc/SOB/hypoxia or fever/leukocytosis or abdominal pain and tolerating diet without issue. Fecal occult negative x 2. Again, should f/u GI as discussed Synthroid rx at discharge, to take prior to other meds/empty stomach and repeat TFT w/ PCP and adjustments pending repeat testing (2) Adjustment disorder with depressed mood: last seen by PCP for this 01/2023 and was documented as not well controlled, increased lexapro to 20mg daily however unclear if he was actually taking. Has been continued on while inpatient and continued at dc Psych consulted while inpatient, alcohol use not in attempt for suicial attempt. Currently denied any SI/HI but can have flat affect/irritable about going home and not staying any longer. See above, strongly encouraged outpatient follow up with [facility], D&A , AA meetings as well. (3) UTI (urinary tract infection): Urine cx obtained given appearance/confusion and had been on Unasyn IV to cover for urine/pulm. Lasix as above w/ improvement in CXR on repeat, no evidence for PNA on repeat exams or sputum production Abx switched to Ancef and continued IV up front given NPO/mental status and continued to ensure taking (no blood cultures obtained) and completed course from 08/14-08/20 for 7 day course Cdiff testing given diarrhea however suspect from alcohol withdrawal (4) Hypertension: SIGNIFICANT HTN (notable significant LVH on ECHO as well) No CP at present time but BP remaining elevated and improved with IV hydralazine and resumption of his home valsartan followed by switching to lasix over his HCTZ Had been provided lasix 40mg IV 08/17-08/18, switched to PO 40mg on 08/20 and continued 40mg PO daily at discharge HCTZ discontinued Clonidine patch continued (noted allergy but helping w/ BP and mood and denied headache )-- switched pach prior to dc by nursing and to change in 7 days BP 126/83 and much better/improved and stable over past 48 hours since resumption in home meds and changes as outlined Rxs for meds sent at discharge F/u PCP (5) Acute kidney injury: Cr 1.7 on admit w/ ~1.1 baseline s/p 1L IVF in ER and continuous IVF on admission, now s/p IV lasix by Dr Garcia last week -Did provide gentle IVF 08/14-08/15 @ 60cc/hr given NPO/cognitive status but once more awake/taking PO was discontinued, IV lasix and switched to PO as above and renal function staying stable/no hypokalemia BUN/Cr 7/0.99 prior to discharge and continued lasix over HCTZ at discharge as above, valsartan continued Should avoid NSAIDS (6) Hypothyroidism: TSH on admission elevated to 25, Unsure if patient has been taking medication as prescribed and repeated while NPO and was up to 30 however normal T3/T4. Resumed home PO and tolerating but as discussed with patient and written in dc instructions will need repeat TFT in next 4-6 weeks with PCP/adjustment if remains elevated (7) Anemia: 13.2 on admission but copious IVF provided as well as multiple lab draws Iron studies w/o significant deficiency, B12 >1500. Hgb 8.4, heparin/Lovenox on hold and using SCDs Hgb stable/improved to 8.9 and at discharge PO Lasix and B12/thiamine/folate as above, continue Synthroid given TSH elevation and likely had not been taking/compliant (no arrythmia on monitor) Continued PPI but increased to BID and continued at discharge -- as discussed given his cirrhosis should have GI f/u at dc for endoscopy/surveillance Fecal occult NEGATIVE, no bleeding reported. -- REPEAT occult blood NEGATIVE (8) Elevated LFTs: MELD score calculated@17 on admission AST, ALT, alk phos and bili elevated from alcohol consumption, prior elevations. Hepatic steatosis w/ early cirrhosis possible on CTAP HCTZ switched to lasix as above, improvement in LFTs on repeat Educated to limit tylenol use <2gm if needed to use Encouraged to AVOID alcohol at discharge as above HELD Statin/ezetimibe after 08/15 which had been continued initially while in patient and discussed to continue to HOLD at discharge given elevation and f/u discussion with primary care MELD 7 at time of dc - Cr 0.99, TB 0.6, INR 1.1, Na 136 - 1.9% 3 month mortality F/u PCP/GI as above (9) Hypokalemia: IMPROVED/normalized on repeat. Valsartan resumed as above and remaining stable with continued lasix (10) Thrombocytopenia: Platelets 125 on arrival , down to 92 but improved/stabilized and remaining stable on repeat labs and suspect 2nd to alcohol use and has remained stable for days/no bleeding (11) Hyperlipidemia: Continued Atorvastatin, Ezetimibe on admission however given LFT elevation, placed further on hold and continued on lasix for volume management (much improved) and improved on repeat --> to continue to hold at discharge and discuss with primary care in follow up given underlying liver dysfunction/earlier cirrhosis and alcohol use (12) Hypomagnesemia: NORMALIZED on repeat, however have been continuing to monitor for stability and had been low on repeat/additional IV ordered 08/18 and started daily slow mag and normal on AM labs but repeated to ensure staying stable and was again low and IV replacement ordered prior to dc and increased PO to BID at discharge slow mag. Plan Seen by psych/neuro day of discharge, no objections to patient being able to make own decisions and was alert/oriented and deems to have capacity to make decision on not going to inpatient rehab. left voicemail regarding plan with significant other as requested by patient and cleared for discharge. No SI/HI reported when asked. Discharged home with family, new rxs for BP control, PPI, vitamin replacement, rolling walker and encouraged avoidance of alcohol encouraged and follow up with AA meetings/[facility]/PCP (appt this upcoming ). Total Time Total Time Spent Total Time Spent (In Minutes): 70 Discharge Plan Discharge Items Patient Disposition: Home - Self-Care Reason For Visit: ALCOHOL ABUSE Discharge Diagnosis: Alcohol intoxication, withdrawal seizure Goals: You have been hospitalized for an acute medical problem. During your stay at [facility], we have made an effort to correct the problem that brought you to the hospital while keeping you as comfortable as possible. Medications were used to bring your condition under control and your discharge instructions will include directions for any medications you should take after leaving the hospital. Please make sure you see your Primary Care Provider as part of your follow up plan. Activity: As commented below Activity Comment: increase activity with walker as tolerated Non-emergency contact: Primary Care Provider and Psychiatrist Call non-emergency contact if: you have any medication questions, your symptoms worsen, your pain is concerning for you and you have a fever Follow-up/Referrals: [facility] [Other] ([facility]- Please call or visit website [email or web address]) to complete the intake process. ) Sharyn Chi DO [Primary Care Provider] - 08/24/23 10:15 am (appointment with Sara Laura PA-C. Please arrive 15 minutes prior to appointment time. ) Diet: Heart Healthy and Low Sodium (2gm) Addtl Attending Provider Instructions: You have been hospitalized for acute alcohol intoxication and withdrawal. This is a very serious problem Alexei, and you ended up having a withdrawal seizure while in the hospital and medications were used to prevent further seizure and withdrawal, but I worry if you start drinking again this will c ontinue to happen. CT scan of the head was negative for acute stroke. AVOIDANCE of alcohol is strongly encouraged and follow up with drug and alcohol rehab as an outpatient is STRONGLY encouraged as well as smoking cessation. You really would benefit from acute inpatient physical rehab as well, however psych has evaluated you as well as neurology and cleared you for discharge. You are allowed to make your own decisions, even if they aren't what we feel is best for you but are hopeful with close follow up you will continue to improve. You should continue B12, B1, folate supplementation for your alcohol withdrawal. Regarding your cirrhosis, you should get screening endoscopy with EGD/colonoscopy in routine surveillance for evaluation of development of varices which can be caused by increased pressures in your liver and cause bleeding which can be arranged as an outpatient. You should continue your Protonix, but increased to TWICE daily as you likely have underlying gastritis from drinking. Your stool testing was NEGATIVE for blood, checked twice. You should HOLD your home atorvastatin and ezetimibe (Zetia) for your cholesterol given your elevated liver enzymes from drinking and can discuss with primary care in follow up about timing to resume. Your blood pressure was VERY elevated and at discharge your medications should be as follows: - Clonidine 0.3mg transdermal patch which is to be changed every SEVEN days. This was changed prior to discharge and you should change it out for the next one on 08/27 - Valsartan 320mg daily continued - Your hydrochlorothiazide was changed to furosemide (Lasix) 40mg by mouth daily given your underlying cirrhosis from drinking and need to maintain fluid balance/prevent fluid retention. We refilled your other medications and in particular, your Synthroid which should be taken in the morning before other medications and will need repeat thyroid testing in next 4-6 weeks to see if this needs increased. You have also been discharged on oral magnesium to help keep these levels replete and this will be twice daily. You were also found to have evidence for urinary tract infection and completed course of antibiotics while in the hospital. You should follow up with primary care in the next 7-10 days to monitor your status. Again, please AVOID any/all alcohol. Please return to the ER with any fevers/chills, chest pain, shortness of breath, confusion, increased tremors, or for any other symptoms concerning for you. Take care! Pending Studies at Discharge: No Stand-Alone Forms: My [facility], Smoking Cessation Medications and DC Order Prescriptions: New valsartan [Diovan] 80 mg Tablet 320 mg PO QAM 30 Days Qty: 120 0RF clonidine 0.3 mg/24 hr Patch Weekly 1 patch transdermal Q7D Qty: 4 0RF furosemide 40 mg Tablet 40 mg PO QAM Qty: 30 0RF Mag 64 64 mg Tablet,Delayed Release (Dr/Ec) 64 mg PO BID Qty: 60 0RF cyanocobalamin (vitamin B-12) 500 mcg Tablet 500 mcg PO QAM Qty: 30 0RF thiamine HCl (vitamin B1) 100 mg Tablet 100 mg PO BID Qty: 60 0RF folic acid 1 mg Tablet 1 mg PO QAM Qty: 30 0RF Continued escitalopram oxalate 20 mg tablet 20 mg PO QPM Qty: 90 1RF disulfiram 250 mg tablet See Rx Instructions .ROUTE .COMPLEX Qty: 60 1RF Dose Instruction: TAKE 1 TABLET BY MOUTH TWICE A DAY NEEDED FOR OTHER Rx Instructions: TAKE 1 TABLET BY MOUTH TWICE A DAY NEEDED FOR OTHER albuterol sulfate 90 mcg/actuation HFA aerosol inhaler See Rx Instructions .ROUTE .COMPLEX Qty: 18 3RF Dose Instruction: INHALE 1 PUFF BY MOUTH ONCE EVERY 4 HOURS NEEDED FOR SHORTNESS OF BREATH Rx Instructions: INHALE 1 PUFF BY MOUTH ONCE EVERY 4 HOURS NEEDED FOR SHORTNESS OF BREATH multivitamin Tablet 1 tab PO QAM levothyroxine 125 mcg tablet 125 mcg PO QAM Qty: 30 3RF Changed omeprazole 40 mg capsule,delayed release(DR/EC) 40 mg PO BID Qty: 60 3RF Held atorvastatin 40 mg tablet 40 mg PO QPM Qty: 90 3RF Hold Instructions: Resume on 09/15/23. ezetimibe 10 mg tablet 10 mg PO HS Hold Instructions: Resume on 09/15/23. Discontinued valacyclovir [Valtrex] 1 gram tablet 1,000 mg PO TID Qty: 21 0RF tadalafil 5 mg tablet 5 mg PO DAILY PRN (Reason: Erectile Dysfunction) valsartan-hydrochlorothiazide 320-12.5 mg tablet 1 tab PO QAM Discharge Orders: Discharge Order (Routine); Ordered 08/21/23 Ordered By: Bailey Aldana Admission Data Admit Date/Time: 08/12/23 02:30 Attending Provider: Tamy Hernandez Admit Provider: Sandra Velez Primary Care Provider: Sharyn Chi Other Providers: Ramana Lopez; Rafiq Garcia; [facility]; Alexandra Castellon; Alissa Avelar; Berto Melendrez; Ranulfo Leonard; Jigar Vazquez Jr; Devora Avilez; Figueroa Valladares Other Interventions: Discharge Summary Assessment (RN) Last Done: 08/21/23 15:55 Coding Level of Care Code 58555 INP/OBS DISCH >30 MIN Diagnoses Alcohol withdrawal syndrome without complication F10.930 Complication of substance-induced condition: uncomplicated Adjustment disorder with depressed mood F43.21 UTI (urinary tract infection) N39.0 Hypertension I10 Acute kidney injury N17.9 Hypothyroidism E03.9 Anemia D64.9 Elevated LFTs R79.89 Hypokalemia E87.6 Thrombocytopenia D69.6 Hyperlipidemia E78.5 Hypomagnesemia E83.42
== END 2023-08-21 17:10 | disposition home or self-care (01) | DRG 896 ==
LOC: ED 22:42 → 2E 08-12 02:30 → SUATTDRO 08-12 02:30 → 2E 08-12 03:35
DX: E83.42 Hypomagnesemia; Z11.52 Encounter for screening for COVID-19; Z91.81 History of falling; G93.41 Metabolic encephalopathy; Z16.11 Resistance to penicillins; D64.9 Anemia, unspecified; F41.9 Anxiety disorder, unspecified; Z88.2 Allergy status to sulfonamides; Z59.7 Insufficient social insurance and welfare support; E03.9 Hypothyroidism, unspecified; I10 Essential (primary) hypertension; E87.6 Hypokalemia; Y90.0 Blood alcohol level of less than 20 mg/100 ml; Z79.899 Other long term (current) drug therapy; E87.5 Hyperkalemia; Z79.890 Hormone replacement therapy; N39.0 Urinary tract infection, site not specified; J45.909 Unspecified asthma, uncomplicated; K70.10 Alcoholic hepatitis without ascites; E87.70 Fluid overload, unspecified; K70.0 Alcoholic fatty liver; F10.131 Alcohol abuse with withdrawal delirium; Z88.8 Allergy status to other drugs, medicaments and biological substances; B96.20 Unspecified Escherichia coli [E. coli] as the cause of diseases classified elsewhere; F43.21 Adjustment disorder with depressed mood; K22.70 Barrett's esophagus without dysplasia; E86.0 Dehydration; D69.59 Other secondary thrombocytopenia; K21.9 Gastro-esophageal reflux disease without esophagitis; N17.9 Acute kidney failure, unspecified; F17.210 Nicotine dependence, cigarettes, uncomplicated; R56.9 Unspecified convulsions

== ENCOUNTER 2023-10-17 15:54 | Inpatient (IN) ==
--- NOTE | 2023-10-17 16:23 | Emergency Department Note ---
Impression & Plan Acute renal failure (ARF), Anemia, Hypomagnesemia, Weakness, Abnormal CT of the head, Diarrhea ED Provider Note NAME: SACHIN MCCALL AGE: 58 SEX: M : 1965 ARRIVES VIA: Walk-In INFORMANT: Patient, the patient's family members ED PROVIDER(S): Wiliam Steinberg DO CHIEF COMPLAINT: Diarrhea HPI: The patient is a 58-year-old male who presented to the emergency department for an evaluation of diarrhea. The patient was noted to have some blood in his stool. He has been having multiple days of loose stool with blood streaks over the course of the last few days. He states has been compliant with his outpatient medications. He has a history of alcoholism but has not been drinking recently according to his family members. He has not had any vomiting. He denies having any headache or neck pain but has had falls recently that were witnessed by the family members. The patient has not been seen by his family doctor for the symptoms. He denies having any cough or fever but his family state he has been coughing somewhat. Patient denies having any hemoptysis. ROS: See above HPI for pertinent positives & negatives. A total of 10 systems reviewed and were otherwise negative. PAST MEDICAL HISTORY: See Below PAST SURGICAL HISTORY: See Below FAMILY HISTORY: See Below SOCIAL HISTORY: See Below HOME MEDICATIONS: See Below ALLERGIES: See Below VITALS: See Below PHYSICAL EXAMINATION: GENERAL: The patient is awake and alert. The patient isAnxious appearing but overall comfortable. EYES: The conjunctivae are clear. The pupils are round and reactive. EARS, NOSE, MOUTH AND THROAT: The nose is without any evidence of any deformity. Mucous membranes are dry. NECK: The neck is nontender and supple. RESPIRATORY: Normal respiratory effort is noted there is no evidence of wheezing rhonchi or rales CARDIOVASCULAR: Cardiac and regular heart sounds were noted to auscultation. There is no definite murmur. GASTROINTESTINAL: The abdomen was distended but soft. There is no tenderness guarding rigidity. MUSCULOSKELETAL/EXTREMITIES: There is no evidence of gross deformity full range of motion is noted in the hips and shoulders. SKIN: There is no obvious evidence of any rash. There are no petechiae, pallor or cyanosis noted. NEUROLOGIC: Patient is awake alert and oriented x3 strength is symmetric patellar reflexes are 2+ bilaterally MEDICAL DECISION MAKING: The patient is a 58-year-old male who does have a history of alcohol abuse who presented to the emergency department for diarrhea and generalized weakness. The patient was found to have signs of renal failure on laboratory studies. This is most likely prerenal given his recent diarrhea. He was treated with IV fluids in the emergency department. The patient was also hypotensive. There was concerns for sepsis. The patient was cultured and treated with IV antibiotics. I discussed the patient's laboratory and radiographic studies with him. I discussed his condition with the on-call [facility]. They have agreed to evaluate the patient in the emergency department for further management and disposition. Vital signs improved after IV fluid administration. Triage Nursing notes reviewed. Prior medical records reviewed Vital Signs: reviewed and remarkable for tachycardia. Differential diagnosis: Infection, dehydration, metabolic abnormality, hypo/hyperglycemia, electrolyte disturbance, anemia, hypoxia, cardiac sources, intracerebral event, toxicologic, neurologic, as well as other pathologies. ER treatment provided: See below Diagnostics interpreted by me: ECG: EKG was obtained in the emergency department. My interpretation is sinus tachycardia at 119 bpm. There was no ectopy. Nonspecific ST segment abnormalities noted. This was compared to a tracing from August 11, 2023. No changes were noted Cardiac Monitoring: An order was placed for continuous cardiac monitoring. The monitor shows a rate of 93 bpm with sinus rhythm. Laboratory studies: As stated above and show below. Imaging studies: See below. Radiographic imaging was reviewed by myself Consultation(s): I discussed this case with Dr. Babin [facility] Past Med/Surg History Medical History UTI (urinary tract infection) Thrombocytopenia Acute kidney injury Hypokalemia Acute dehydration Alcohol withdrawal Prediabetes Presumed- Hgb A1C 6.3 on 10/12/22 Coronary artery calcification seen on CAT scan chest CT 03/2020 negative stress test 06/2021 Alcohol abuse Adjustment disorder with depressed mood Allergic rhinitis Anxiety Barretts esophagus Chronic cough Hiatal hernia Obstructive sleep apnea no device Periodic limb movements of sleep Small airways disease prn inhaler for this > rare res inh use Hypothyroidism GERD (gastroesophageal reflux disease) Hyperlipidemia Hypertension Surgical History S/P wrist surgery R WRIST REPAIR OF TORN TENDON Hx of vasectomy History of colonoscopy History of esophagogastroduodenoscopy (EGD) History of appendectomy History of tooth extraction WISDOM TEETH History of tonsillectomy S/P LASIK surgery of both eyes History of lumbar spinal fusion Family History Father Alcohol abuse COPD (chronic obstructive pulmonary disease) Hypertension Reported family history of early sudden deaths Mother Hypertension Hyperlipidemia Brother Hypertension Sister Graves' disease Social History Smoking Status: Current every day smoker Tobacco Type: Cigarettes Cigarettes Per Day: 1 ppd; Second Hand Exposure: No; Do You Dip or Chew Tobacco: No; Hx Alcohol Use: No Hx Substance Use: Yes Substance Use Type Other:: medical card very occasional Preferred Language: Haitian Communication Ability: Effective Visual Impairment: Limited Hearing Ability: Normal Therapeutic Assistant Required: No Beliefs That Will Affect Care: None marital status: Current Living Situation: Significant Other Current Living Situation Comment: LIVES WITH GIRLFRIEND current occupational status: employed current occupation: [employer] Feels Safe at Home: Yes Childhood Exposure to Second-Hand Smoke: No caffeine: Yes Dental Care, Regularly: Yes Physical Activity Frequency: Does not Exercise Seatbelt Use: always Sunscreen Use: No Assistive Devices: None Allergies Allergies Allergy/AdvReac Type Severity Reaction Status Date / Time Sulfa (Sulfonamide Allergy Mild HIVES Verified 08/12/23 02:12 Antibiotics) MARGARET Inhibitors Allergy Unknown COUGH Verified 08/12/23 02:12 amlodipine Allergy Unknown FATIGUE Verified 08/12/23 02:12 clonidine Allergy Unknown HEADACHES Verified 08/12/23 02:12 varenicline [From Chantix] Allergy Unknown Unknown Verified 08/12/23 02:12 Home Meds Home Medications Medication Instructions Recorded Confirmed ezetimibe 10 mg tablet 10 mg PO HS 07/29/21 10/17/23 multivitamin 1 tab PO QAM 11/10/22 10/17/23 albuterol sulfate 90 mcg/actuation 1 puff inhalation Q4 PRN sob 10/17/23 10/17/23 aerosol inhaler carvedilol 6.25 mg tablet 6.25 mg PO BID 10/17/23 10/17/23 valsartan 320 mg tablet 320 mg PO QAM 10/17/23 10/17/23 Previous Rx's Medication Instructions Recorded atorvastatin 40 mg tablet 40 mg PO QPM #90 tabs 09/01/22 escitalopram oxalate 20 mg tablet 20 mg PO QPM #90 tabs 06/09/23 cyanocobalamin (vitamin B-12) 500 500 mcg PO QAM #30 tabs 08/21/23 mcg tablet levothyroxine 125 mcg tablet 125 mcg PO QAM #30 tabs 08/21/23 magnesium chloride 64 mg 64 mg PO BID #60 tabs 08/21/23 (magnesium chloride) tablet,delayed release (Mag 64) omeprazole 40 mg capsule,delayed 40 mg PO BID #60 caps 08/21/23 release thiamine HCl (vitamin B1) 100 mg 100 mg PO BID #60 tabs 08/21/23 tablet Results & Data (ED) Vital Signs Vital Signs - 24 hr 10/17/23 16:01 10/17/23 16:26 10/17/23 16:42 Temperature 35.8 C L Temperature Source Temporal Artery Scan Pulse Rate 132 H 104 H Pulse Rate from SpO2 Sensor Respiratory Rate 22 Respiratory Effort / Characteristics Non-Labored Spontaneous Respiratory Depth Normal Blood Pressure 87/57 L Blood Pressure Mean 67 Pulse Oximetry 97 98 Oxygen Delivery Method Room Air Room Air Sepsis Recent Fever Within 48 Hours No Sepsis New/Unexplained Change in Mental Status N/A Sepsis Action Taken by Nursing No Action Required 10/17/23 16:58 10/17/23 17:00 10/17/23 17:18 Temperature Temperature Source Pulse Rate 105 H 102 H 104 H Pulse Rate from SpO2 Sensor 104 H 101 H Respiratory Rate 26 H 25 H 16 Respiratory Effort / Characteristics Respiratory Depth Blood Pressure 119/99 132/95 Blood Pressure Mean 105 107 Pulse Oximetry 97 97 97 Oxygen Delivery Method Room Air Room Air Room Air Sepsis Recent Fever Within 48 Hours Sepsis New/Unexplained Change in Mental Status Sepsis Action Taken by Nursing 10/17/23 17:30 10/17/23 17:45 10/17/23 18:00 Temperature Temperature Source Pulse Rate 102 H 99 H 107 H Pulse Rate from SpO2 Sensor 100 H 98 H 105 H Respiratory Rate 16 22 16 Respiratory Effort / Characteristics Respiratory Depth Blood Pressure 109/82 122/87 125/86 Blood Pressure Mean 91 98 99 Pulse Oximetry 97 98 96 Oxygen Delivery Method Room Air Room Air Room Air Sepsis Recent Fever Within 48 Hours Sepsis New/Unexplained Change in Mental Status Sepsis Action Taken by Nursing 10/17/23 18:15 10/17/23 18:32 10/17/23 20:35 Temperature Temperature Source Pulse Rate 98 H 100 H 94 H Pulse Rate from SpO2 Sensor 101 H Respiratory Rate 20 20 Respiratory Effort / Characteristics Respiratory Depth Blood Pressure 123/88 Blood Pressure Mean 99 Pulse Oximetry 97 99 Oxygen Delivery Method Room Air Sepsis Recent Fever Within 48 Hours Sepsis New/Unexplained Change in Mental Status Sepsis Action Taken by Residential Medications Current Medication List: was personally reviewed by me Laboratory Data Attestation: I reviewed the patient's lab results. 10/17/23 16:24 10/17/23 16:24 Lab Results 10/17/23 10/17/23 10/17/23 Range/Units 16:24 16:38 16:42 WBC 7.34 (4.8-10.8) K/ul RBC 2.94 L (4.70-6.10) M/uL Hgb 10.2 L (14.0-18.0) g/dl POC Hgb 10.5 L (14.0-18.0) g/dl Hct 28.6 L (42.0-52.0) % POC Hct 31 L (42-52) % MCV 97.3 (80.0-100.0) fL MCH 34.7 H (25.0-34.0) pg MCHC 35.7 (32.0-36.0) g/dL RDW Std Deviation 54.6 H (36.4-46.3) fL RDW Coeff of Joshua 15.4 H (11.5-14.5) % Plt Count 165 (130-400) K/uL MPV 11.0 (9.4-12.4) fL Immature Gran % (Auto) 0.5 % Neut % (Auto) 74.7 % Lymph % (Auto) 12.5 % [place] % (Auto) 11.9 % Eos % (Auto) 0.1 % Baso % (Auto) 0.3 % Neut # (Auto) 5.48 (1.40-6.50) K/uL Lymph # (Auto) 0.92 L (1.20-3.40) K/uL [place] # (Auto) 0.87 H (0.11-0.59) K/uL Eos # (Auto) 0.01 (0.00-0.50) K/uL Baso # (Auto) 0.02 (0.00-0.20) K/uL Immature Gran # (Auto) 0.04 (0.01-0.20) K/uL Absolute Nucleated RBC 0.05 (0.00-0.12) K/uL Nucleated RBC % (auto) 0.7 % PT 10.9 (9.0-12.0) Seconds INR 1.0 (0.9-1.1) APTT 24 (21-31) Seconds PTT Ratio 0.9 VBG pH 7.48 H (7.36-7.41) VBG pCO2 30 L (38-50) mmHg VBG pO2 56 mmHg VBG HCO3 22 mmol/L VBG O2 Saturation 87.4 % VBG Base Excess -0.3 mEq/L POC Sodium 133 L (135-144) mmol/L Sodium 135 L (136-145) mmol/L POC Potassium 2.9 L (3.3-5.0) mmol/L Potassium 3.1 L (3.5-5.1) mmol/L POC Chloride 100 L (101-112) mmol/L Chloride 93 L (98-107) mmol/L Carbon Dioxide 20 L (21-32) mmol/L POC Total CO2 21 L (24-31) mmol/L Anion Gap 22 H (3-11) POC Anion Gap 15.0 L (16-25) mmol/L POC BUN 48 H (7-18) mg/dl BUN 58 H (6-23) mg/dl Creatinine 3.85 H (0.6-1.4) mg/dl POC Creatinine 4.4 H (0.6-1.3) mg/dl Est Cr Clr Drug Dosing Not Reportable Est GFR ( Amer) 18.6 ml/min Est GFR (Non-Af Amer) 16.1 ml/min BUN/Creatinine Ratio 15.1 (10-20) Glucose 152 H (70-99(Fasting)) mg/dl POC Glucose (other) 154 H (70-99) mg/dl Lactate 2.4 H* (0.4-2.0) mmol/L Calcium 9.2 (8.6-10.3) mg/dl POC Ioniz Calcium Yolanda 1.03 L (1.12-1.32) mmol/l Magnesium 1.5 L (1.7-2.4) mg/dl Total Bilirubin 1.2 H (0.2-1.0) mg/dl Direct Bilirubin 0.5 H (0-0.2) mg/dl AST 97 H (13-39) U/L ALT 57 H (7-52) U/L Alkaline Phosphatase 181 H (34-104) U/L Troponin I High Sens 34.2 H (0-20) pg/ml Total Protein 7.9 (6.0-8.3) gm/dl Albumin 4.3 (3.4-5.0) gm/dl Globulin 3.6 (2.5-4.0) gm/dl Albumin/Globulin Ratio 1.2 (0.9-2) Lipase 282 H (11-82) U/L Procalcitonin 2.59 H (0-0.5) ng/ml Stl C. cayetanensis PCR (NotDetected) Stool Rotavirus A PCR (NotDetected) Stl Adenov F 40/41 PCR (NotDetected) Stool Astrovirus (PCR) (NotDetected) Stool Campylobacter PCR (NotDetected) Stl C. diff Tox B Gene (Neg) Stool Cryptosporidium PCR (NotDetected) Stl E.coli Shiga Tox PCR (NotDetected) Stl Enterotoxigenic E PCR (NotDetected) Stool EPEC (PCR) (NotDetected) Stool EAEC (PCR) (NotDetected) Stl E. histolytica PCR (NotDetected) Stool Giardia Lamblia PCR (NotDetected) Stool Salmonella PCR (NotDetected) Stool Sapovirus (PCR) (NotDetected) Stl P. shigelloides PCR (NotDetected) Stl Shigella/EIEC PCR (NotDetected) St Y.enterocolitica PCR (NotDetected) Stool Vibrio (PCR) (NotDetected) Stl Vibrio cholerae PCR (NotDetected) Stl Norovirus GI/GII PCR (NotDetected) Ethyl Alcohol mg/dL < 10.0 (<10.0) mg/dl Blood Type O Positive Antibody Screen NEGATIVE 10/17/23 10/17/23 Range/Units 18:45 19:00 WBC (4.8-10.8) K/ul RBC (4.70-6.10) M/uL Hgb (14.0-18.0) g/dl POC Hgb (14.0-18.0) g/dl Hct (42.0-52.0) % POC Hct (42-52) % MCV (80.0-100.0) fL MCH (25.0-34.0) pg MCHC (32.0-36.0) g/dL RDW Std Deviation (36.4-46.3) fL RDW Coeff of Joshua (11.5-14.5) % Plt Count (130-400) K/uL MPV (9.4-12.4) fL Immature Gran % (Auto) % Neut % (Auto) % Lymph % (Auto) % [place] % (Auto) % Eos % (Auto) % Baso % (Auto) % Neut # (Auto) (1.40-6.50) K/uL Lymph # (Auto) (1.20-3.40) K/uL [place] # (Auto) (0.11-0.59) K/uL Eos # (Auto) (0.00-0.50) K/uL Baso # (Auto) (0.00-0.20) K/uL Immature Gran # (Auto) (0.01-0.20) K/uL Absolute Nucleated RBC (0.00-0.12) K/uL Nucleated RBC % (auto) % PT (9.0-12.0) Seconds INR (0.9-1.1) APTT (21-31) Seconds PTT Ratio VBG pH (7.36-7.41) VBG pCO2 (38-50) mmHg VBG pO2 mmHg VBG HCO3 mmol/L VBG O2 Saturation % VBG Base Excess mEq/L POC Sodium (135-144) mmol/L Sodium (136-145) mmol/L POC Potassium (3.3-5.0) mmol/L Potassium (3.5-5.1) mmol/L POC Chloride (101-112) mmol/L Chloride (98-107) mmol/L Carbon Dioxide (21-32) mmol/L POC Total CO2 (24-31) mmol/L Anion Gap (3-11) POC Anion Gap (16-25) mmol/L POC BUN (7-18) mg/dl BUN (6-23) mg/dl Creatinine (0.6-1.4) mg/dl POC Creatinine (0.6-1.3) mg/dl Est Cr Clr Drug Dosing Est GFR ( Amer) ml/min Est GFR (Non-Af Amer) ml/min BUN/Creatinine Ratio (10-20) Glucose (70-99(Fasting)) mg/dl POC Glucose (other) (70-99) mg/dl Lactate 1.7 (0.4-2.0) mmol/L Calcium (8.6-10.3) mg/dl POC Ioniz Calcium Yolanda (1.12-1.32) mmol/l Magnesium (1.7-2.4) mg/dl Total Bilirubin (0.2-1.0) mg/dl Direct Bilirubin (0-0.2) mg/dl AST (13-39) U/L ALT (7-52) U/L Alkaline Phosphatase (34-104) U/L Troponin I High Sens 28.4 H (0-20) pg/ml Total Protein (6.0-8.3) gm/dl Albumin (3.4-5.0) gm/dl Globulin (2.5-4.0) gm/dl Albumin/Globulin Ratio (0.9-2) Lipase (11-82) U/L Procalcitonin (0-0.5) ng/ml Stl C. cayetanensis PCR Not Detected (NotDetected) Stool Rotavirus A PCR Not Detected (NotDetected) Stl Adenov F 40/41 PCR Not Detected (NotDetected) Stool Astrovirus (PCR) Not Detected (NotDetected) Stool Campylobacter PCR Not Detected (NotDetected) Stl C. diff Tox B Gene Negative Cdiff Gene (Neg) Stool Cryptosporidium PCR Not Detected (NotDetected) Stl E.coli Shiga Tox PCR Not Detected (NotDetected) Stl Enterotoxigenic E PCR Not Detected (NotDetected) Stool EPEC (PCR) Not Detected (NotDetected) Stool EAEC (PCR) Not Detected (NotDetected) Stl E. histolytica PCR Not Detected (NotDetected) Stool Giardia Lamblia PCR Not Detected (NotDetected) Stool Salmonella PCR Not Detected (NotDetected) Stool Sapovirus (PCR) Not Detected (NotDetected) Stl P. shigelloides PCR Not Detected (NotDetected) Stl Shigella/EIEC PCR Not Detected (NotDetected) St Y.enterocolitica PCR Not Detected (NotDetected) Stool Vibrio (PCR) Not Detected (NotDetected) Stl Vibrio cholerae PCR Not Detected (NotDetected) Stl Norovirus GI/GII PCR Not Detected (NotDetected) Ethyl Alcohol mg/dL (<10.0) mg/dl Blood Type Antibody Screen Administered Medications Potassium Chloride (K Felice / Wtr) 10 meq in 100 mls @ 100 mls/hr IV Q1H NAEEM Stop: 10/17/23 22:14 Last Admin: 10/17/23 20:47 Dose: 100 mls/hr Documented By: KYRA Discontinued Medications Sodium Chloride (Nss) 1,000 mls @ 999 mls/hr IV .Q1H1M STA Stop: 10/17/23 17:10 Last Infusion: 10/17/23 17:20 Dose: Infused Documented By: Admin: 10/17/23 16:31 Dose: 999 mls/hr Documented By: RISA Thiamine HCl 200 mg/ Sodium (Chloride) 52 mls @ 210 mls/hr IV NOW STA Stop: 10/17/23 16:24 Last Infusion: 10/17/23 17:43 Dose: Infused Documented By: Admin: 10/17/23 17:24 Dose: 210 mls/hr Documented By: RISA Sodium Chloride (Nss) 1,000 mls @ 999 mls/hr IV .Q1H1M ONE Stop: 10/17/23 18:23 Last Infusion: 10/17/23 19:30 Dose: Infused Documented By: Admin: 10/17/23 17:25 Dose: 999 mls/hr Documented By: RISA Potassium Chloride (K Felice / Wtr) 10 meq in 100 mls @ 100 mls/hr IV ONE ONE Stop: 10/17/23 18:42 Last Infusion: 10/17/23 20:02 Dose: Infused Documented By: Admin: 10/17/23 18:59 Dose: 100 mls/hr Documented By: PORSHA Magnesium Sulfate/Dextrose (Magnesium Sulfate / D5w) 1 gm in 100 mls @ 100 mls/hr IV NOW STA Stop: 10/17/23 18:42 Last Infusion: 10/17/23 20:02 Dose: Infused Documented By: Admin: 10/17/23 18:59 Dose: 100 mls/hr Documented By: PORSHA Cefepime HCl (Maxipime) 2,000 mg in 20 mls @ 5 mls/min IV NOW STA; Protocol Stop: 10/17/23 18:11 Last Admin: 10/17/23 18:59 Dose: 5 mls/min Documented By: PORSHA Lactated Ringer's (Lr) 1,000 mls @ 999 mls/hr IV .Q1H1M ONE Stop: 10/17/23 19:19 Last Admin: 10/17/23 18:55 Dose: 999 mls/hr Documented By: PORSHA Magnesium Sulfate/Dextrose (Magnesium Sulfate / D5w) 1 gm in 100 mls @ 100 mls/hr IV NOW STA Stop: 10/17/23 21:04 Last Admin: 10/17/23 20:47 Dose: 100 mls/hr Documented By: KYRA Ondansetron HCl (Ondansetron Inj 2 Mg/Ml 2 Ml Vial) 4 mg IV NOW STA Stop: 10/17/23 16:11 Last Admin: 10/17/23 16:31 Dose: 4 mg Documented By: RISA Imaging Data Attestation: I personally reviewed and interpreted this imaging study as follows: My Impression: CT of the brain was obtained in the emergency department. My interpretation is no intracranial hemorrhage or mass effect, final report below. CT scan of the abdomen and pelvis was obtained in the emergency department. My interpretation is no free air or signs of bowel obstruction, final report below. Radiologist's Impression: Cervical Spine CT 10/17/23 16:10 CT OF THE CERVICAL SPINE WITHOUT CONTRAST CLINICAL HISTORY: fall COMPARISON STUDY: Cervical spine CT September 06, 2023. TECHNIQUE: Helical axial images of the cervical spine were obtained without IV contrast. Sagittal and coronal reconstructions were viewed. Automated exposure control was utilized for the study. A dose lowering technique was utilized adhering to the principles of ALARA. FINDINGS: Reversal of the cervical lordosis is similar to prior exam. Anterolisthesis of C3 on C4 is unchanged. No acute cervical spine fracture is present. Moderate multilevel degenerative disc disease and facet arthrosis is present. There is no prevertebral edema. IMPRESSION: No acute cervical spine fracture or subluxation. ACT 112: Negative or not required by law. Electronically signed by: Holland Au M.D. 10/17/2023 5:[address] 10/17/23 16:10 CT OF THE HEAD WITHOUT CONTRAST CLINICAL HISTORY: fall COMPARISON STUDY: Head CT September 06, 2023. TECHNIQUE: Helical axial images of the head were obtained without IV contrast. Automated exposure control was utilized for the study. A dose lowering technique was utilized adhering to the principles of ALARA. FINDINGS: No acute intracranial hemorrhage, midline shift or mass effect is present. The ventricular system is stable. A 1.6 x 1.3 cm hypodense focus within the central aspect of the gabriela is noted. The appearance has changed since prior CT. The basal cisterns are patent. No extra-axial collections are present. There are no findings to suggest acute dural sinus thrombosis or acute territorial infarct. No significant calvarial abnormalities are present. Visualized portions of the sinuses and mastoid air cells are clear. IMPRESSION: 1. No acute intracranial hemorrhage. 2. No calvarial fractures. 3. 1.6 x 1.3 cm hypodense focus within the central aspect of the gabriela. 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 An old pontine infarct could appear similar. ACT 112: Negative or not required by law. Electronically signed by: Holland Au M.D. 10/17/2023 5:22 PM Chest X-Ray 10/17/23 16:11 XR chest 1V portable CLINICAL HISTORY: fall TECHNIQUE: Single frontal radiograph of the chest was obtained. Comparison: Comparison is made to chest radiograph 08/16/2023 FINDINGS: No lines and tubes are seen. The cardiomediastinal silhouette is normal. The lungs are clear. No evidence of pleural effusion or pneumothorax. IMPRESSION: No acute chest disease. ACT 112: Negative or not required by law. Electronically signed by: David Owusu M.D. 10/17/2023 4:52 PM KUB X-Ray 10/17/23 16:11 XR KUB/Abdomen 1 view CLINICAL HISTORY: fal TECHNIQUE: 1 view of the abdomen was obtained. Comparison: Comparison is made to chest and abdomen radiographs 05/06/2014 FINDINGS: Posterior fixation hardware is seen spanning L5-S1. Degenerative changes are seen in the visualized skeleton. The bowel gas pattern is nonobstructive. Small stool burden is seen. IMPRESSION: Nonobstructive bowel gas pattern. ACT 112: Negative or not required by law. Electronically signed by: David Owusu M.D. 10/17/2023 4:53 PM Abdomen/Pelvis CT 10/17/23 16:44 CT OF THE ABDOMEN AND PELVIS WITHOUT CONTRAST CLINICAL HISTORY: Acute renal failure. COMPARISON STUDY: CT of the abdomen and pelvis August 12, 2023. KUB October 16 TECHNIQUE: Axial images of the abdomen and pelvis were obtained without IV contrast. Images were reviewed in the axial, sagittal, and coronal planes. Automated exposure control was utilized for the study. A dose lowering technique was utilized adhering to the principles of ALARA. FINDINGS: Lung bases are unremarkable. No pneumatosis, free air or portal venous gas is present. There are no renal, ureteral or bladder calculi. There is no hydronephrosis or hydroureter. Mild bilateral symmetric perinephric infiltration is similar to prior exam. Severe hepatic steatosis is noted. There is no biliary or pancreatic ductal dilatation. There is subtle stranding adjacent to the pancreatic head. Spleen, adrenal glands are unremarkable. There is no evidence for a bowel obstruction. No acute fractures are identified. There are no fluid collections. There is no lymphadenopathy. Stable postoperative findings within the lumbosacral spine are noted. IMPRESSION: 1. No urinary calculi or hydronephrosis. 2. Subtle infiltration adjacent to the pancreatic head. Findings could be correlated with serum lipase level to exclude mild acute pancreatitis. 3. Hepatic steatosis. 4. No bowel obstruction. ACT 112: Negative or not required by law. Electronically signed by: Holland Au M.D. 10/17/2023 5:44 PM Discharge Plan Visit Data Chief Complaint: Rectal Bleed Stated Complaint: DIARREA/RECTAL BLEEDING, WEAKNESS/SHAKEY ED Provider: Wiliam Steinberg Discharge Problem: Acute renal failure (ARF), Anemia, Hypomagnesemia, Weakness, Abnormal CT of the head, Diarrhea Patient Disposition: Being Evaluated by Hospitalist Forms Stand Alone Forms: My [facility] Prescriptions Prescriptions: No Action atorvastatin 40 mg tablet 40 mg PO QPM Qty: 90 3RF Hold Instructions: Resume on 09/15/23. escitalopram oxalate 20 mg tablet 20 mg PO QPM Qty: 90 1RF ezetimibe 10 mg tablet 10 mg PO HS Hold Instructions: Resume on 09/15/23. multivitamin Tablet 1 tab PO QAM magnesium chloride [Mag 64] 64 mg Tablet,Delayed Release (Dr/Ec) 64 mg PO BID Qty: 60 0RF cyanocobalamin (vitamin B-12) 500 mcg Tablet 500 mcg PO QAM Qty: 30 0RF thiamine HCl (vitamin B1) 100 mg Tablet 100 mg PO BID Qty: 60 0RF omeprazole 40 mg capsule,delayed release(DR/EC) 40 mg PO BID Qty: 60 3RF levothyroxine 125 mcg tablet 125 mcg PO QAM Qty: 30 3RF carvedilol 6.25 mg Tablet 6.25 mg PO BID Rx Instructions: must administer with a meal/food valsartan 320 mg tablet 320 mg PO QAM albuterol sulfate 90 mcg/actuation HFA aerosol inhaler 1 puff inhalation Q4 PRN (Reason: sob) Rx Instructions: INHALE 1 PUFF BY MOUTH ONCE EVERY 4 HOURS NEEDED FOR SHORTNESS OF BREATH Referrals Referrals: PCP,NO [Primary Care Provider] - Discharge Problem: Acute renal failure (ARF) Qualifiers: Acute renal failure type: unspecified Qualified Code(s): N17.9 - Acute kidney failure, unspecified Anemia Qualifiers: Anemia type: unspecified type Qualified Code(s): D64.9 - Anemia, unspecified Diarrhea Qualifiers: Diarrhea type: unspecified type Qualified Code(s): R19.7 - Diarrhea, unspecified
[2023-10-17] MEDS: ONDANSETRON INJ 2 MG/ML 2 ML VIAL IV STA (16:31)
[2023-10-17] MEDS: SODIUM CHLORIDE 0.9% 1,000 ML IV STA (16:31)
--- NOTE | 2023-10-17 16:53 | XRay Report ---
XR chest 1V portable CLINICAL HISTORY: fall TECHNIQUE: Single frontal radiograph of the chest was obtained. Comparison: Comparison is made to chest radiograph 08/16/2023 FINDINGS: No lines and tubes are seen. The cardiomediastinal silhouette is normal. The lungs are clear. No evid ence of pleural effusion or pneumothorax. IMPRESSION: No acute chest disease. ACT 112: Negative or not required by law. Electronically signed by: David Owusu M.D. 10/17/2023 4:52 PM
--- NOTE | 2023-10-17 16:54 | XRay Report ---
XR KUB/Abdomen 1 view CLINICAL HISTORY: fal TECHNIQUE: 1 view of the abdomen was obtained. Comparison: Comparison is made to chest and abdomen radiographs 05/06/2014 FINDINGS: Posterior fixation hardware is seen spanning L5-S1. Degenerative changes are seen in the visualized s keleton. The bowel gas pattern is nonobstructive. Small stool burden is seen. IMPRESSION: Nonobstructive bowel gas pattern. ACT 112: Negative or not required by law. Electronically signed by: David Owusu M.D. 10/17/2023 4:53 PM
[2023-10-17 16:55] LABS: iSTAT Creatinine 4.4 mg/dl (0.6-1.3); iSTAT Hemoglobin 10.5 g/dl (14.0-18.0); iSTAT Ionized Calcium 1.03 mmol/l (1.12-1.32); iSTAT Potassium 2.9 mmol/L (3.3-5.0)
[2023-10-17 16:59] LABS: Base Excess VBG -0.3 mEq/L; HCO3 VBG 22 mmol/L; Oxygen Saturation VBG 87.4 %; PCO2 VBG 30 mmHg (38-50); PO2 VBG 56 mmHg; pH VBG 7.48 (7.36-7.41)
[2023-10-17 17:10] LABS: Basophils # (auto) 0.02 K/uL (0.00-0.20); Basophils % (auto) 0.3 %; Eosinophils # (auto) 0.01 K/uL (0.00-0.50); Eosinophils % (auto) 0.1 %; Hematocrit (blood only) 28.6 % (42.0-52.0); Hemoglobin 10.2 g/dl (14.0-18.0); Immature Granulocytes # (auto) 0.04 K/uL (0.01-0.20); Immature Granulocytes % (auto) 0.5 %; Lymphocytes # (auto) 0.92 K/uL (1.20-3.40); Lymphocytes % (auto) 12.5 %; Mean Corpuscular Hemoglobin 34.7 pg (25.0-34.0); Mean Corpuscular Hgb Conc 35.7 g/dL (32.0-36.0); Mean Corpuscular Volume 97.3 fL (80.0-100.0); Monocytes # (auto) 0.87 K/uL (0.11-0.59); Monocytes % (auto) 11.9 %; Neutrophils # (auto) 5.48 K/uL (1.40-6.50); Neutrophils % (auto) 74.7 %; Nucleated RBC # (auto) 0.05 K/uL (0.00-0.12); Nucleated RBC % (auto) 0.7 %; Platelet Count 165 K/uL (130-400); RDW Coefficient of Variation 15.4 % (11.5-14.5); RDW Standard Deviation 54.6 fL (36.4-46.3); Red Blood Count 2.94 M/uL (4.70-6.10); White Blood Count 7.34 K/ul (4.8-10.8)
[2023-10-17 17:17] LABS: Partial Thromboplastin Ratio 0.9; Partial Thromboplastin Time 24 Seconds (21-31); Prothrombin Time 10.9 Seconds (9.0-12.0)
[2023-10-17] MEDS: THIAMINE HCL 200 MG in SODIUM CHLORIDE 0.9% 50 ML IV STA (17:24)
--- NOTE | 2023-10-17 17:24 | CT Scan Report ---
CT OF THE HEAD WITHOUT CONTRAST CLINICAL HISTORY: fall COMPARISON STUDY: Head CT September 06, 2023. TECHNIQUE: Helical axial images of the head were obtained without IV contrast. Automated exposure con trol was utilized for the study. A dose lowering technique was utilized adhering to the principles o f ALARA. FINDINGS: No acute intracranial hemorrhage, midline shift or mass effect is present. The ventricular system is stable. A 1.6 x 1.3 cm hypodense focus within the central aspect of the gabriela is noted. The appearance has changed since prior CT. The basal cisterns are patent. No extra-axial collections are present. There are no findings to suggest acute dural sinus thrombosis or acute territorial infarct. No significant calvarial abnormalities are present. Visualized portions of the sinuses and mastoid ai r cells are clear. IMPRESSION: 1. No acute intracranial hemorrhage. 2. No calvarial fractures. 3. 1.6 x 1.3 cm hypodense focus within the central aspect of the gabriela. 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 An old pontine infarct could appear similar. ACT 112: Negative or not required by law. Electronically signed by: Holland Au M.D. 10/17/2023 5:22 PM
[2023-10-17] MEDS: SODIUM CHLORIDE 0.9% 1,000 ML IV ONE (17:25)
--- NOTE | 2023-10-17 17:26 | CT Scan Report ---
CT OF THE CERVICAL SPINE WITHOUT CONTRAST CLINICAL HISTORY: fall COMPARISON STUDY: Cervical spine CT September 06, 2023. TECHNIQUE: Helical axial images of the cervical spine were obtained without IV contrast. Sagittal a nd coronal reconstructions were viewed. Automated exposure control was utilized for the study. A do se lowering technique was utilized adhering to the principles of ALARA. FINDINGS: Reversal of the cervical lordosis is similar to prior exam. Anterolisthesis of C3 on C4 is unchanged. No acute cervical spine fracture is present. Moderate multilevel degenerative disc disease and facet arthrosis is present. There is no prevertebral edema. IMPRESSION: No acute cervical spine fracture or subluxation. ACT 112: Negative or not required by law. Electronically signed by: Holland Au M.D. 10/17/2023 5:25 PM
[2023-10-17 17:29] LABS: Alanine Aminotransferase 57 U/L (7-52); Albumin Globulin Ratio 1.2 (0.9-2); Albumin Level 4.3 gm/dl (3.4-5.0); Alkaline Phosphatase 181 U/L (34-104); Anion Gap 22 (3-11); Aspartate Aminotransferase 97 U/L (13-39); BUN Creatinine Ratio 15.1 (10-20); Bilirubin Direct 0.5 mg/dl (0-0.2); Bilirubin,Total 1.2 mg/dl (0.2-1.0); Blood Urea Nitrogen 58 mg/dl (6-23); Calcium 9.2 mg/dl (8.6-10.3); Carbon Dioxide 20 mmol/L (21-32); Chloride 93 mmol/L (98-107); Est GFR (African American) 18.6 ml/min; Est GFR (Non-African American) 16.1 ml/min; Globulin 3.6 gm/dl (2.5-4.0); Glucose 152 mg/dl (70-99(Fasting)); Lipase 282 U/L (11-82); Magnesium 1.5 mg/dl (1.7-2.4); Potassium 3.1 mmol/L (3.5-5.1); Sodium 135 mmol/L (136-145); Total Protein 7.9 gm/dl (6.0-8.3)
[2023-10-17 17:35] LABS: Troponin I High Sensitivity 34.2 pg/ml (0-20)
--- NOTE | 2023-10-17 17:47 | CT Scan Report ---
CT OF THE ABDOMEN AND PELVIS WITHOUT CONTRAST CLINICAL HISTORY: Acute renal failure. COMPARISON STUDY: CT of the abdomen and pelvis August 12, 2023. KUB October 16 TECHNIQUE: Axial images of the abdomen and pelvis were obtained without IV contrast. Images were revi ewed in the axial, sagittal, and coronal planes. Automated exposure control was utilized for the parrish dy. A dose lowering technique was utilized adhering to the principles of ALARA. FINDINGS: Lung bases are unremarkable. No pneumatosis, free air or portal venous gas is present. Ther e are no renal, ureteral or bladder calculi. There is no hydronephrosis or hydroureter. Mild bilatera l symmetric perinephric infiltration is similar to prior exam. Severe hepatic steatosis is noted. The re is no biliary or pancreatic ductal dilatation. There is subtle stranding adjacent to the pancreati c head. Spleen, adrenal glands are unremarkable. There is no evidence for a bowel obstruction. No acu te fractures are identified. There are no fluid collections. There is no lymphadenopathy. Stable post operative findings within the lumbosacral spine are noted. IMPRESSION: 1. No urinary calculi or hydronephrosis. 2. Subtle infiltration adjacent to the pancreatic head. Findings could be correlated with serum lipas e level to exclude mild acute pancreatitis. 3. Hepatic steatosis. 4. No bowel obstruction. ACT 112: Negative or not required by law. Electronically signed by: Holland Au M.D. 10/17/2023 5:44 PM
[2023-10-17] MEDS: LACTATED RINGER'S 1,000 ML IV ONE (18:55)
[2023-10-17] MEDS: POTASSIUM CHLORIDE / WTR 10 MEQ/100 ML PLCT IV ONE (18:59)
[2023-10-17] MEDS: CEFEPIME 2,000 MG/20 ML VIAL IV STA (18:59)
[2023-10-17] MEDS: MAGNESIUM SULFATE / D5W 1 GM/100 ML BAG IV STA ×2 (18:59→20:47)
--- NOTE | 2023-10-17 20:13 | History & Physical Report ---
Date of Service October 17, 2023 Assessment & Plan (1) Alcohol withdrawal: Plan: Currently with mild tremor but severe withdrawal in August with a seizure Last alcohol 5/6 ?unclear what time of day Will start phenobarbital IV taper - weight pending but notably even doubling current protocol will be significantly less than 10mg/kg loading with other hospital suggested protocols, therefore if he becomes more symptomatic with RASS > 0 then would be safe to give additional doses of phenobarbital Additional doses per RASS if > 0. RASS q4h. High dose IV thiamine for possible Wernicke's although he was given this last admission making this less likely (2) Sepsis: Plan: CXR unremarkable UA ordered but uncollected Procalcitonin elevated Cefepime given empirically in the ER - will switch to ceftriaxone as causes less encephalopathy and covers previously grown E. Coli ?Diarrheal source - stool + c. diff PCR Follow up blood cultures Lactate 2.4 -> 1.7 (3) Acute pancreatitis: Plan: No epigastric pain however needs pancreatitis diagnosis criteria with imaging changes and lipase greater than 3 times the upper limit of normal Appears to be mild and extremely likely alcohol related Continue IV fluids @ 200ml/hr overnight (4) Acute kidney injury: Plan: Suspect mostly pre-renal, UA pending No post obstructive cause on CT IV fluids, repeat with AM labs (5) Hematochezia: Plan: Monitor hemoglobin. No findings on CT to explain this - ?hemorrhoids vs diarrheal illness (6) Anemia: Plan: At baseline, monitor with AM labs with hematochezia Folate within normal limits of May, B12 elevated in August, ferritin elevated in August with normal transferrin saturations. No need to repeat. (7) Hypertension: Plan: Likely does not usually take his prescribed valsartan or carvedilol therefore we will continue to hold these (8) Diarrhea: Plan: Stool and c. diff PCR (9) Abnormal CT of the head: Plan: No focal neurology on exam Possible explains his generalized unbalanced self though Brain MRI Antiplatelets deferred given subacute suspected and hematochezia (10) Hypomagnesemia: Plan: Magnesium level 1.5 - total 3 g magnesium sulfate Repeat with AM labs (11) Hypokalemia: Plan: Suspect secondary to poor oral intake and diarrhea Replace and repeat level tomorrow (12) GERD (gastroesophageal reflux disease): Plan: Switch omeprazole to pantoprazole IV 40 mg daily (13) Hypothyroidism: Plan: TSH previously elevated in August, repeat with a.m. labs Secondary to not taking his usual levothyroxine therefore continue on just his usual dose Plan VTE prophylaxis - hold due to hematochezia, start chemical prophylaxis if hematochezia stopped Diet - regular Disposition - admit to PCU Admission and Anticipated Discharge Date Admission Date: October 17, 2023 History of Present Illness Chief Complaint: Generalized weakness, dehydration Primary Care Provider: NO PCP Alexei Adams is a 58 year old male who presents to the ER per triage complaining of dizziness and lightheadedness. The patient reports he came because he is dehydrated because he drinks too much alcohol, he denies any complaints when seen. History taken from his ex- in the room (notably he has one adult daughter who just turned 18 who I believe would be default decision maker, not present at bedside and number not in EHR). She reports they have been trying to get him to come to the ER for weeks since his last admission in August for alcohol withdrawal which involved a withdrawal seizure and UTI. He reports going right ack to drinking alcohol following this admission with 1 bottle of Captain Ismael a day. He has lost control of his bowels with ongoing diarrhea for more than a week. Yesterday they looked more yellow and blood came from the rectum yesterday evening. Police were brought in for a well check yesterday but he continued to refuse to come to the hospital. The main problem has been generalized weakness and it got to such an extent today he was unable to get up to go out and buy his alcohol therefore was more agreeable to coming to the ER. He reports non-compliance with his medications, taking them intermittently today. He feels he can probably go home (but is agreeable to staying) and denies any current vision, speech, hearing, weakness, headache, respiratory, gastrointestinal or urinary symptoms. No fever or chills. Allergies Allergy/AdvReac Type Severity Reaction Status Date / Time Sulfa (Sulfonamide Allergy Mild HIVES Verified 08/12/23 02:12 Antibiotics) MARGARET Inhibitors Allergy Unknown COUGH Verified 08/12/23 02:12 amlodipine Allergy Unknown FATIGUE Verified 08/12/23 02:12 clonidine Allergy Unknown HEADACHES Verified 08/12/23 02:12 varenicline [From Chantix] Allergy Unknown Unknown Verified 08/12/23 02:12 Home Medications Medication Instructions Recorded Confirmed Type ezetimibe 10 mg tablet 10 mg PO HS 07/29/21 10/17/23 History atorvastatin 40 mg tablet 40 mg PO QPM #90 tabs 09/01/22 10/17/23 Rx multivitamin 1 tab PO QAM 11/10/22 10/17/23 History escitalopram oxalate 20 mg tablet 20 mg PO QPM #90 tabs 06/09/23 10/17/23 Rx cyanocobalamin (vitamin B-12) 500 500 mcg PO QAM #30 tabs 08/21/23 10/17/23 Rx mcg tablet levothyroxine 125 mcg tablet 125 mcg PO QAM #30 tabs 08/21/23 10/17/23 Rx magnesium chloride 64 mg 64 mg PO BID #60 tabs 08/21/23 10/17/23 Rx (magnesium chloride) tablet,delayed release (Mag 64) omeprazole 40 mg capsule,delayed 40 mg PO BID #60 caps 08/21/23 10/17/23 Rx release thiamine HCl (vitamin B1) 100 mg 100 mg PO BID #60 tabs 08/21/23 10/17/23 Rx tablet albuterol sulfate 90 mcg/actuation 1 puff inhalation Q4 PRN sob 10/17/23 10/17/23 History aerosol inhaler carvedilol 6.25 mg tablet 6.25 mg PO BID 10/17/23 10/17/23 History valsartan 320 mg tablet 320 mg PO QAM 10/17/23 10/17/23 History Past Med/Surg History Medical History (Updated 10/18/23 @ 06:39 by Yoel Babin MD) Acute kidney injury Hypokalemia Alcohol withdrawal UTI (urinary tract infection) Thrombocytopenia Acute dehydration Prediabetes Presumed- Hgb A1C 6.3 on 10/12/22 Coronary artery calcification seen on CAT scan chest CT 03/2020 negative stress test 06/2021 Alcohol abuse Adjustment disorder with depressed mood Allergic rhinitis Anxiety Barretts esophagus Chronic cough Hiatal hernia Obstructive sleep apnea no device Periodic limb movements of sleep Small airways disease prn inhaler for this > rare res inh use Hypothyroidism GERD (gastroesophageal reflux disease) Hyperlipidemia Hypertension Surgical History S/P wrist surgery R WRIST REPAIR OF TORN TENDON Hx of vasectomy History of colonoscopy History of esophagogastroduodenoscopy (EGD) History of appendectomy History of tooth extraction WISDOM TEETH History of tonsillectomy S/P LASIK surgery of both eyes History of lumbar spinal fusion Family History Father Alcohol abuse COPD (chronic obstructive pulmonary disease) Hypertension Reported family history of early sudden deaths Mother Hypertension Hyperlipidemia Brother Hypertension Sister Graves' disease Social History Smoking Status: Current every day smoker Tobacco Type: Cigarettes Cigarettes Per Day: 1 ppd; Second Hand Exposure: No; Do You Dip or Chew Tobacco: No; Hx Alcohol Use: No Hx Substance Use: Yes Substance Use Type Other:: medical card very occasional Preferred Language: Yakut Communication Ability: Effective Visual Impairment: Limited Hearing Ability: Normal Derrick Helper Required: No Beliefs That Will Affect Care: None marital status: Current Living Situation: Significant Other Current Living Situation Comment: LIVES WITH GIRLFRIEND current occupational status: employed current occupation: [employer] Other Information That Helps Us Care for You: No Feels Safe at Home: Yes Safety Concerns: Feels Safe At This Time Childhood Exposure to Second-Hand Smoke: No caffeine: Yes Dental Care, Regularly: Yes Physical Activity Frequency: Does not Exercise Seatbelt Use: always Sunscreen Use: No Assistive Devices: Glasses Review of Systems Review of Systems: All systems reviewed & are unremarkable except as noted in HPI & below Physical Exam Constitutional: WD/WN, vitals as above Eyes: PERRL, conjunctivae normal, anicteric sclerae ENMT: external ear and nose normal, oropharynx normal Neck: trachea midline, no thyromegaly Respiratory: normal respiratory effort, lungs clear to auscultation Cardiovascular: Rate/Rhythm: regular rate and regular rhythm Heart Sounds: no murmur Extremities: normal capillary refill; no calf tenderness and no pedal edema Gastrointestinal (Abdomen): normal bowel sounds, soft, nontender, no hepatosplenomegaly Musculoskeletal: no cyanosis or clubbing, extremities motor strength 5/5 Skin: no rashes, warm and dry Neurologic: moves all extremities and awake; no focal motor deficits and not confused Speech / Cognition: normal speech Motor/Sensory: + tremor (mild R > L) Cranial Nerves: PERRL, EOM intact bilaterally, normal facial strength, tongue midline, able to rotate head bilaterally, able to elevate shoulders bilaterally and symmetric palate elevation; + nystagmus (mild bilateral horizontal lateral) Psychiatric: Orientation: alert and oriented to place; + not oriented to person and + not oriented to time Results & Data Results & Data Vital Signs (Past 12 Hours) Vital Signs Temp Pulse Resp BP Pulse Ox O2 Del Method 10/17/23 18:32 100 H 20 99 10/17/23 18:15 98 H 20 123/88 97 Room Air 10/17/23 18:00 107 H 16 125/86 96 Room Air 10/17/23 17:45 99 H 22 122/87 98 Room Air 10/17/23 17:30 102 H 16 109/82 97 Room Air 10/17/23 17:18 104 H 16 132/95 97 Room Air 10/17/23 17:00 102 H 25 H 97 Room Air 10/17/23 16:58 105 H 26 H 119/99 97 Room Air 10/17/23 16:42 104 H 10/17/23 16:26 98 Room Air 10/17/23 16:01 35.8 C L 132 H 22 87/57 L 97 Room Air Laboratory Results Abnormal lab results 10/17/23 10/17/23 10/17/23 Range/Units 16:24 16:42 19:00 RBC 2.94 L (4.70-6.10) M/uL Hgb 10.2 L (14.0-18.0) g/dl POC Hgb 10.5 L (14.0-18.0) g/dl Hct 28.6 L (42.0-52.0) % POC Hct 31 L (42-52) % MCH 34.7 H (25.0-34.0) pg RDW Std Deviation 54.6 H (36.4-46.3) fL RDW Coeff of Joshua 15.4 H (11.5-14.5) % Lymph # (Auto) 0.92 L (1.20-3.40) K/uL Todd # (Auto) 0.87 H (0.11-0.59) K/uL VBG pH 7.48 H (7.36-7.41) VBG pCO2 30 L (38-50) mmHg POC Sodium 133 L (135-144) mmol/L Sodium 135 L (136-145) mmol/L POC Potassium 2.9 L (3.3-5.0) mmol/L Potassium 3.1 L (3.5-5.1) mmol/L POC Chloride 100 L (101-112) mmol/L Chloride 93 L (98-107) mmol/L Carbon Dioxide 20 L (21-32) mmol/L POC Total CO2 21 L (24-31) mmol/L Anion Gap 22 H (3-11) POC Anion Gap 15.0 L (16-25) mmol/L POC BUN 48 H (7-18) mg/dl BUN 58 H (6-23) mg/dl Creatinine 3.85 H (0.6-1.4) mg/dl POC Creatinine 4.4 H (0.6-1.3) mg/dl Glucose 152 H (70-99(Fasting)) mg/dl POC Glucose (other) 154 H (70-99) mg/dl Lactate 2.4 H* (0.4-2.0) mmol/L POC Ioniz Calcium Yolanda 1.03 L (1.12-1.32) mmol/l Magnesium 1.5 L (1.7-2.4) mg/dl Total Bilirubin 1.2 H (0.2-1.0) mg/dl Direct Bilirubin 0.5 H (0-0.2) mg/dl AST 97 H (13-39) U/L ALT 57 H (7-52) U/L Alkaline Phosphatase 181 H (34-104) U/L Troponin I High Sens 34.2 H 28.4 H (0-20) pg/ml Lipase 282 H (11-82) U/L Procalcitonin 2.59 H (0-0.5) ng/ml Diagnostic Findings XR chest 1V portable CLINICAL HISTORY: fall TECHNIQUE: Single frontal radiograph of the chest was obtained. Comparison: Comparison is made to chest radiograph 08/16/2023 FINDINGS: No lines and tubes are seen. The cardiomediastinal silhouette is normal. The lungs are clear. No evidence of pleural effusion or pneumothorax. IMPRESSION: No acute chest disease. CT OF THE ABDOMEN AND PELVIS WITHOUT CONTRAST CLINICAL HISTORY: Acute renal failure. COMPARISON STUDY: CT of the abdomen and pelvis August 12, 2023. KUB October 16 TECHNIQUE: Axial images of the abdomen and pelvis were obtained without IV contrast. Images were reviewed in the axial, sagittal, and coronal planes. Automated exposure control was utilized for the study. A dose lowering technique was utilized adhering to the principles of ALARA. FINDINGS: Lung bases are unremarkable. No pneumatosis, free air or portal venous gas is present. There are no renal, ureteral or bladder calculi. There is no hydronephrosis or hydroureter. Mild bilateral symmetric perinephric infiltration is similar to prior exam. Severe hepatic steatosis is noted. There is no biliary or pancreatic ductal dilatation. There is subtle stranding adjacent to the pancreatic head. Spleen, adrenal glands are unremarkable. There is no evidence for a bowel obstruction. No acute fractures are identified. There are no fluid collections. There is no lymphadenopathy. Stable postoperative findings within the lumbosacral spine are noted. IMPRESSION: 1. No urinary calculi or hydronephrosis. 2. Subtle infiltration adjacent to the pancreatic head. Findings could be correlated with serum lipase level to exclude mild acute pancreatitis. 3. Hepatic steatosis. 4. No bowel obstruction. XR KUB/Abdomen 1 view CLINICAL HISTORY: fal TECHNIQUE: 1 view of the abdomen was obtained. Comparison: Comparison is made to chest and abdomen radiographs 05/06/2014 FINDINGS: Posterior fixation hardware is seen spanning L5-S1. Degenerative changes are seen in the visualized skeleton. The bowel gas pattern is nonobstructive. Small stool burden is seen. IMPRESSION: Nonobstructive bowel gas pattern. Medications Administered ER Medications Given: Normal saline 1L bolus Ondansetron 4mg IV Thiamine 200mg IV Normal saline 1L bolus Potassium chloride 10 meq IV Magnesium sulfate 1g IV Cefepime 2g IV LR 1L bolus ECG Rate (beats per minute): 119 Rhythm: sinus tachycardia Findings: no acute ischemic change Comparison ECG Date: from (August 11, 2023) Change: no significant change Code Status & VTE Plan Code Status Full VTE Prophylaxis Plan VTE Prophylaxis will be ordered: Yes PG Care Time/CCT Total # of Minutes Spent Total Time Spent with Patient: Total time spent is greater than 50% in coordination of care (as documented) at patient's floor/unit and/or counseling patient: Coding Level of Care Code 83954 INT INP/OBS CARE 3/75MIN Diagnoses Alcohol withdrawal syndrome without complication F10.930 Complication of substance-induced condition: uncomplicated Sepsis A41.9 Acute pancreatitis K85.90 Acute kidney injury N17.9 Hematochezia K92.1 Anemia D64.9 Anemia type: unspecified type Hypertension I10 Diarrhea R19.7 Diarrhea type: unspecified type Abnormal CT of the head R93.0 Hypomagnesemia E83.42 Hypokalemia E87.6 GERD (gastroesophageal reflux disease) K21.9 Hypothyroidism E03.9 (1) Alcohol withdrawal Complication of substance-induced condition: uncomplicated Qualified Code(s): F10.930 - Alcohol use, unspecified with withdrawal, uncomplicated (6) Anemia Anemia type: unspecified type Qualified Code(s): D64.9 - Anemia, unspecified (8) Diarrhea Diarrhea type: unspecified type Qualified Code(s): R19.7 - Diarrhea, uns pecified
[2023-10-17] MEDS: POTASSIUM CHLORIDE / WTR 10 MEQ/100 ML PLCT IV SCH (20:47)
[2023-10-17 20:54] LABS: Adenovirus F 40/41 PCR Not Detected (NotDetected); Astrovirus PCR Not Detected (NotDetected); Campylobacter PCR Not Detected (NotDetected); Cryptosporidium PCR Not Detected (NotDetected); Cyclospora cayetanensis PCR Not Detected (NotDetected); Entamoeba histolytica PCR Not Detected (NotDetected); Enteroaggregative E.coli(EAEC) Not Detected (NotDetected); Enteropathogenic E.coli (EPEC) Not Detected (NotDetected); Enterotoxigenic E.coli (ETEC) Not Detected (NotDetected); Giardia lamblia PCR Not Detected (NotDetected); Norovirus GI/GII PCR Not Detected (NotDetected); Plesiomonas shigelloides PCR Not Detected (NotDetected); Rotavirus A PCR Not Detected (NotDetected); Salmonella PCR Not Detected (NotDetected); Sapovirus PCR Not Detected (NotDetected); Shiga-like Toxin E.coli (STEC) Not Detected (NotDetected); Shigella/Enteroinvasive E.coli Not Detected (NotDetected); Vibrio cholerae PCR Not Detected (NotDetected); Vibrio species PCR Not Detected (NotDetected); Yersinia enterocolitica PCR Not Detected (NotDetected)
[2023-10-17] MEDS ORDERED: PHENobarbital PO Alcohol Withdrawal PO STA (22:24)
[2023-10-17] MEDS ORDERED: PHENobarbital sodium 65 MG/ML VIAL IV PRN ×4 (22:24→22:52)
[2023-10-17] MEDS: PHENobarbital sodium 65 MG/ML VIAL IV STA (22:53)
[2023-10-18] MEDS: THIAMINE HCL 200 MG in SODIUM CHLORIDE 0.9% 50 ML IV SCH (01:17)
[2023-10-18] MEDS: LACTATED RINGER'S 1,000 ML IV SCH (01:17)
[2023-10-18] MEDS: PANTOprazole 40 MG in SYRINGE 0 ML IV SCH (01:17)
[2023-10-18] MEDS: MAGNESIUM SULFATE / D5W 1 GM/100 ML BAG IV ONE (01:18)
[2023-10-18] MEDS: POTASSIUM CHLORIDE CRTAB 20 MEQ TABCR PO STA (01:45)
[2023-10-18 04:03] LABS: Appearance Urine Clear (Clear); Bacteria Urine Automated None Seen (None Seen); Bilirubin Urine Negative (Negative); Blood Urine Negative (Negative); Color Urine Yellow; Epithelial Cell Urine Auto 0-2 /hpf (0-2); Glucose Urine UA Negative (Negative); Hyaline Casts Urine Present /lpf (None Presnt); Ketones Urine Trace (Negative); Leukocyte Esterase Urine 2+ (Negative); Nitrite Urine Negative (Negative); Protein Urine 1+ (Negative); RBC Urine Automated 0-2 /hpf (0-2); Specific Gravity Urine 1.016 (1.000-1.030); Urobilinogen Urine Negative (Negative); WBC Urine Automated 21-50 /hpf (0-5); pH Urine 5.5 (4.5-7.5)
[2023-10-18 04:39] LABS: Albumin Globulin Ratio 1.3 (0.9-2); Albumin Level 3.5 gm/dl (3.4-5.0); BUN Creatinine Ratio 17.5 (10-20); Bilirubin,Total 1.2 mg/dl (0.2-1.0); Calcium 8.1 mg/dl (8.6-10.3); Creatinine Clr Calc Pharmacy 27.6 ml/min; Est GFR (African American) 28.7 ml/min; Est GFR (Non-African American) 24.8 ml/min; Globulin 2.7 gm/dl (2.5-4.0); Magnesium 2.2 mg/dl (1.7-2.4); Potassium 3.4 mmol/L (3.5-5.1); Total Protein 6.2 gm/dl (6.0-8.3)
[2023-10-18 04:40] LABS: Amphetamines+Metham, Urine Neg (Neg); Barbiturates, Urine Pos (Neg); Benzodiazepine, Urine Neg (Neg); Cocaine, Urine Neg (Neg); MDMA (Ecstacy), Urine Neg (Neg); Marijuana, Urine Neg (Neg); Methadone, Urine Neg (Neg); Opiate, Urine Neg (Neg); Phencyclidine, Urine Neg (Neg)
[2023-10-18 04:42] LABS: Thyroid Stimulating Hormone 5.68 uIu/ml (0.300-4.500)
[2023-10-18 04:57] LABS: Basophils # (auto) 0.03 K/uL (0.00-0.20); Basophils % (auto) 0.5 %; Eosinophils # (auto) 0.12 K/uL (0.00-0.50); Eosinophils % (auto) 2.1 %; Hematocrit (blood only) 25.3 % (42.0-52.0); Hemoglobin 8.5 g/dl (14.0-18.0); Immature Granulocytes # (auto) 0.11 K/uL (0.01-0.20); Immature Granulocytes % (auto) 1.9 %; Lymphocytes # (auto) 1.13 K/uL (1.20-3.40); Lymphocytes % (auto) 19.3 %; Mean Corpuscular Hemoglobin 34.4 pg (25.0-34.0); Mean Corpuscular Hgb Conc 33.6 g/dL (32.0-36.0); Mean Corpuscular Volume 102.4 fL (80.0-100.0); Mean Platelet Volume 10.9 fL (9.4-12.4); Monocytes # (auto) 0.64 K/uL (0.11-0.59); Neutrophils # (auto) 3.81 K/uL (1.40-6.50); Neutrophils % (auto) 65.2 %; Nucleated RBC # (auto) 0.02 K/uL (0.00-0.12); Nucleated RBC % (auto) 0.3 %; Platelet Count 130 K/uL (130-400); RDW Coefficient of Variation 15.7 % (11.5-14.5); RDW Standard Deviation 58.4 fL (36.4-46.3); Red Blood Count 2.47 M/uL (4.70-6.10); White Blood Count 5.84 K/ul (4.8-10.8)
[2023-10-18 05:33] LABS: T4 Free Thyroxine 0.86 ng/dl (0.61-1.60)
[2023-10-18] MEDS: HEPARIN SOD 5,000 UNIT/0.5 ML VIAL SQ SCH ×2 (06:41→20:18)
[2023-10-18] MEDS: LEVOTHYROXINE SODIUM 125 MCG TABLET PO SCH (06:46)
[2023-10-18] MEDS: CYANOCOBALAMIN (B-12) 500 MCG TABLET PO SCH (08:20)
[2023-10-18] MEDS: cefTRIAXone SODIUM 2,000 MG/50 ML BAG IV SCH (08:20)
--- NOTE | 2023-10-18 09:09 | Magnetic Resonance Report ---
MR brain wo con CLINICAL HISTORY: Abnormal CT ?CVA TECHNIQUE: Multiplanar and multisequence MR images of the brain were obtained without intravenous con trast. Comparison: Comparison is made to CT head 10/17/2023 FINDINGS: No abnormal restricted diffusion is identified. The white matter is unremarkable. The ventricular sys tem is normal in appearance. Previously noted pontine hypodensity corresponds to a focus of increased T2 signal in the gabriela with increased FLAIR peripherally. There is no mass effect or midline shift. T here is no evidence of acute intraparenchymal hemorrhage. No extra axial fluid collections are seen. The corpus callosum, pituitary gland, and cerebellar tonsils appear grossly unremarkable. Flow voids of the major intracranial arterial vessels are identified. The imaged portions of the para nasal sinuses, mastoid air cells, and orbits are unremarkable. IMPRESSION: Previously noted pontine hypodensity corresponds to fluid density in the gabriela compatible with central pontine myelinolysis. ACT 112: Negative or not required by law. Electronically signed by: David Owusu M.D. 10/18/2023 9:07 AM
[2023-10-18] MEDS: POTASSIUM CHLORIDE / WTR 10 MEQ/100 ML PLCT IV SCH (09:54)
[2023-10-18 10:40] LABS: A calco-baum cmplx NotReported Not Detected (NotDetected); Bact fragilis Not Reported Not Detected (NotDetected); Blood Culture Id Panel PCR Panel Negative (NotDetected); C auris Not Reported Not Detected (NotDetected); Calbicans Not Reported Not Detected (NotDetected); Candida glabrata Not Reported Not Detected (NotDetected); Candida krusei Not Reported Not Detected (NotDetected); Cneoformans/gatti Not Reported Not Detected (NotDetected); Cparapsilosis Not Reported Not Detected (NotDetected); E cloacae compx Not Reported Not Detected (NotDetected); Efaecalis Not Reported Not Detected (NotDetected); Efaecium Not Reported Not Detected (NotDetected); Enterobacterales Not Reported Not Detected (NotDetected); Escherichia coli Not Reported Not Detected (NotDetected); H influenzae Not Reported Not Detected (NotDetected); K aerogenes Not Reported Not Detected (NotDetected); Koxytoca Not Reported Not Detected (NotDetected); Kpneumoniae grp Not Reported Not Detected (NotDetected); Lmonocyt Not Reported Not Detected (NotDetected); N meningitidis Not Reported Not Detected (NotDetected); P aeruginosa Not Reported Not Detected (NotDetected); Proteus spp Not Reported Not Detected (NotDetected); Salmonella spp Not Reported Not Detected (NotDetected); Smarcescens Not Reported Not Detected (NotDetected); Staph lugdunensis Not Reported Not Detected (NotDetected); Staph spp. Not Reported Not Detected (NotDetected); Staphaureus Not Reported Not Detected (NotDetected); Staphepi Not Reported Not Detected (NotDetected); Stenmaltophilia Not Reported Not Detected (NotDetected); Strep agal(GrpB) Not Reported Not Detected (NotDetected); Strep pneum Not Reported Not Detected (NotDetected); Strep pyog (GrpA) Not Reported Not Detected (NotDetected); Strep spp Not Reported Not Detected (NotDetected)
[2023-10-18] MEDS ORDERED: PANCREAZE (LIPASE 10,500U) CAP PO PRN (15:42)
[2023-10-18] MEDS: PHENobarbitaL 30 MG TAB PO SCH (16:04)
[2023-10-18] MEDS: PANCREAZE (LIPASE 10,500U) CAP PO SCH (16:06)
--- NOTE | 2023-10-18 17:35 | Hospitalist Progress Note ---
Date of Service October 18, 2023 Assessment & Plan (1) Alcohol withdrawal: Plan: Currently with mild tremor but severe withdrawal in August with a seizure Last alcohol 10/15 ?unclear what time of day - drinking ~ 1 pint per day Continue phenobarbital IV taper - Additional doses per RASS if > 0. RASS q4h. High dose IV thiamine for possible Wernicke's although he was given this last admission making this less likely (2) Sepsis: Plan: Procalcitonin elevated Lactate 2.4 -> 1.7 CXR unremarkable UA not grossly infected, UC pending Stool biofire and cdiff negative Blood cultures; 1 of 4 positive for Gram pos bacili - suspect contaminate but will continue to follow Cefepime given empirically in the ER - will switch to ceftriaxone as causes less encephalopathy and covers previously grown E. Coli (3) Acute pancreatitis: Plan: No epigastric pain however needs pancreatitis diagnosis criteria with imaging changes and lipase greater than 3 times the upper limit of normal Appears to be mild and extremely likely alcohol related Patient has received total of 6L of IVF so far - tolerating PO intake, will hold on additional IVF at this time (4) Acute kidney injury: Plan: Suspect mostly pre-renal, UA pending No post obstructive cause on CT Improving AM BMP (5) Hematochezia: Plan: Monitor hemoglobin. No findings on CT to explain this - ?hemorrhoids vs raúl rrheal illness patient denies blood in stools 10/17 (6) Anemia: Plan: At baseline, monitor with AM labs with hematochezia Folate within normal limits of May, B12 elevated in August, ferritin elevated in August with normal transferrin saturations. No need to repeat. (7) Hypertension: Plan: Likely does not usually take his prescribed valsartan or carvedilol therefore we will continue to hold these (8) Abnormal CT of the head: Plan: Central pontine myelinolysis No focal neurology on exam Possible explains his generalized balance changes - has been getting up to the bathroom Brain MRI: central pontine myelinolysis Antiplatelets deferred given subacute suspected and hematochezia (9) Hypomagnesemia: Plan: Magnesium level 1.5 - total 3 g magnesium sulfate --> repeat 2.2 Also with hypokalemia. 3.4 today replaced IV AM BMP (10) GERD (gastroesophageal reflux disease): Plan: Switch omeprazole to pantoprazole IV 40 mg daily (11) Hypothyroidism: Plan: TSH previously elevated in August, repeat with a.m. labs Secondary to not taking his usual levothyroxine therefore continue on just his usual dose Plan VTE prophylaxis - will begin heparin SQ q 12 Disposition - continued inpatient stay Patient states that if he was unable to make decision for himself, he would want his ex- Rossana to make decisions on his behalf. Admission and Anticipated Discharge Date Admission Date: October 17, 2023 Supervising Physician Co-Signing Physician Notes Attending Attestation - Chart reviewed, care plan d/w HAMZAH Craven. I agree w/ the mccauley components of her documentation. MRI brain with concerns for central pontine myelinolysis (CPM). Review of his medical record dose NOT show any past h/o hyponatremia. CPM likely is due to chronic alcoholism. Can't rule out malnutrition or other factors. PT, OT as needed for any motor/balance issues. Yoel Ellis MD Subjective Patient seen prior to lunch - tells me that he is feeling fine, no abdominal pain. Hungry and asking when he can get home Continue with diarrhea, but denies blood has been drinking a pint a day. Today states he is not interested in going to rehab to get sober, would like to just go home when i discussed with him the impacts that his alcohol use is having on his internal organs he seemed unphased Review of Systems Review of Systems: All systems reviewed & are unremarkable except as noted in Subjective Physical Exam Physical Exam: General: NAD, VS as above HEENT: no scleral icterus, no gross neuro deficits Resp: normal respiratory effort, lungs clear to auscultation CV: RRR, no murmur, Abd: normal bowel sounds, non tender, no hepatosplenomegaly Extremities: Moves all extremities, no edema Neuro: A&O x3, Skin: intact, no lesions noted Results & Data Results & Data Vital Signs (Past 12 Hours) Vital Signs Pulse Pulse Resp BP Pulse Ox O2 Del Method 10/18/23 16:40 82 10/18/23 16:32 86 16 88 L 10/18/23 16:00 84 21 95 10/18/23 16:00 150/95 H 10/18/23 15:30 80 18 96 10/18/23 15:00 103 H 18 10/18/23 14:30 85 16 99 Room Air 10/18/23 14:00 144/94 H 10/18/23 14:00 87 21 99 10/18/23 13:30 82 19 96 10/18/23 13:00 146/108 H 10/18/23 13:00 93 H 23 10/18/23 12:38 145/93 H 10/18/23 12:38 78 19 98 10/18/23 12:37 79 25 H 98 10/18/23 12:00 78 19 124/88 96 Room Air 10/18/23 11:30 86 20 10/18/23 11:06 102 H 16 10/18/23 10:00 86 20 129/92 97 Room Air 10/18/23 09:30 91 H 23 10/18/23 09:20 104 H 23 10/18/23 09:01 127/51 L 10/18/23 09:01 95 H 17 96 10/18/23 09:00 88 20 10/18/23 08:43 79 10/18/23 08:40 81 19 96 10/18/23 08:20 81 15 98 10/18/23 08:18 87 10 L 10/18/23 08:18 141/99 H 10/18/23 07:09 85 17 98 10/18/23 06:12 84 17 92 Room Air Laboratory Results CBC, chemistry, mag and lipase reveiewed PG Care Time/CCT Total # of Minutes Spent Total Time Spent with Patient: Total time spent is greater than 50% in coordination of care (as documented) at patient's floor/unit and/or counseling patient: Coding Level of Care Code 81573 SUB INP/OBS CARE 3/50MIN Diagnoses Alcohol withdrawal syndrome without complication F10.930 Complication of substance-induced condition: uncomplicated Sepsis A41.9 Acute pancreatitis K85.90 Acute kidney injury N17.9 Hematochezia K92.1 Anemia D64.9 Anemia type: unspecified type Hypertension I10 Abnormal CT of the head R93.0 Hypomagnesemia E83.42 GERD (gastroesophageal reflux disease) K21.9 Hypothyroidism E03.9 (1) Alcohol withdrawal Complication of substance-induced condition: uncomplicated Qualified Code(s): F10.930 - Alcohol use, unspecified with withdrawal, uncomplicated (6) Anemia Anemia type: unspecified type Qualified Code(s): D64.9 - Anemia, unspecified
[2023-10-18] MEDS: ESCITALOPRAM OXALATE 20 MG TAB PO SCH (20:18)
[2023-10-18] MEDS: EZETIMIBE 10 MG TAB PO SCH (20:18)
[2023-10-19 06:08] LABS: Basophils # (auto) 0.03 K/uL (0.00-0.20); Basophils % (auto) 0.7 %; Eosinophils # (auto) 0.16 K/uL (0.00-0.50); Eosinophils % (auto) 3.7 %; Hematocrit (blood only) 23.6 % (42.0-52.0); Hemoglobin 8.1 g/dl (14.0-18.0); Immature Granulocytes # (auto) 0.05 K/uL (0.01-0.20); Immature Granulocytes % (auto) 1.2 %; Lymphocytes # (auto) 0.91 K/uL (1.20-3.40); Mean Corpuscular Hemoglobin 34.5 pg (25.0-34.0); Mean Corpuscular Hgb Conc 34.3 g/dL (32.0-36.0); Mean Corpuscular Volume 100.4 fL (80.0-100.0); Mean Platelet Volume 11.3 fL (9.4-12.4); Monocytes # (auto) 0.35 K/uL (0.11-0.59); Monocytes % (auto) 8.1 %; Neutrophils # (auto) 2.83 K/uL (1.40-6.50); Neutrophils % (auto) 65.3 %; Nucleated RBC # (auto) 0.02 K/uL (0.00-0.12); Nucleated RBC % (auto) 0.5 %; Platelet Count 134 K/uL (130-400); RDW Coefficient of Variation 15.1 % (11.5-14.5); RDW Standard Deviation 54.6 fL (36.4-46.3); Red Blood Count 2.35 M/uL (4.70-6.10); White Blood Count 4.33 K/ul (4.8-10.8)
--- NOTE | 2023-10-19 06:08 | Electrocardiogram Report ---
Test Reason : Blood Pressure : / mmHG Vent. Rate : 119 BPM Atrial Rate : 119 BPM P-R Int : 130 ms QRS Dur : 080 ms QT Int : 334 ms P-R-T Axes : 050 047 065 degrees QTc Int : 469 ms Sinus tachycardia Nonspecific ST abnormality When compared with ECG of 11-AUG-2023 22:47, No significant change was found Confirmed by Roe Bush ([id number]) on 10/19/2023 6:08:14 AM Referred By: REFERRED SELF Confirmed By:Roe Bush
[2023-10-19 06:41] LABS: Albumin Globulin Ratio 1.3 (0.9-2); Albumin Level 3.3 gm/dl (3.4-5.0); Bilirubin,Total 0.9 mg/dl (0.2-1.0); Calcium 8.2 mg/dl (8.6-10.3); Creatinine Clr Calc Pharmacy 45.9 ml/min; Est GFR (Non-African American) 45.8 ml/min; Globulin 2.5 gm/dl (2.5-4.0); Magnesium 1.4 mg/dl (1.7-2.4); Potassium 3.4 mmol/L (3.5-5.1); Total Protein 5.8 gm/dl (6.0-8.3)
[2023-10-19] MEDS: POTASSIUM CHLORIDE CRTAB 20 MEQ TABCR PO STA (08:42)
[2023-10-19] MEDS: MAGNESIUM SULFATE / D5W 1 GM/100 ML BAG IV SCH (08:42)
[2023-10-19] MEDS: PHENobarbitaL 30 MG TAB PO SCH (14:02)
--- NOTE | 2023-10-19 16:29 | Hospitalist Progress Note ---
Date of Service October 19, 2023 Assessment & Plan (1) Alcohol withdrawal: Plan: Currently with mild tremor but severe withdrawal in August with a seizure Last alcohol 10/15 ?unclear what time of day - drinking ~ 1 pint per day Continue phenobarbital IV taper - Additional doses per RASS if > 0. RASS q4h. High dose IV thiamine for possible Wernicke's although he was given this last admission making this less likely patient without signs of active withdrawal, continuing phenobarbital taper (2) Sepsis: Plan: Procalcitonin elevated - suspect this was related to EARLINE and pancreatitis rather than actual infection Lactate 2.4 -> 1.7 CXR unremarkable UC negative Stool biofire and cdiff negative Blood cultures; 1 of 4 positive for Gram pos bacili - suspect contaminate but will continue to follow Cefepime given empirically in the ER - will switch to ceftriaxone as causes less encephalopathy and covers previously grown E. Coli (3) Acute pancreatitis: Plan: No epigastric pain however needs pancreatitis diagnosis criteria with imaging changes and lipase greater than 3 times the upper limit of normal Appears to be mild and extremely likely alcohol related Patient has received total of 6L of IVF so far - tolerating PO intake, will hold on additional IVF at this time slight bump in LFTs today will recheck in the morning (4) Acute kidney injury: Plan: Suspect mostly pre-renal, UA pending No post obstructive cause on CT continues to improve AM BMP (5) Hematochezia: Plan: Monitor hemoglobin. No findings on CT to explain this - ?hemorrhoids vs diarrheal illness patient denies blood in stools 10/17 and 10/18 (6) Anemia: Plan: At baseline, monitor with AM labs with hematochezia Folate within normal limits of May, B12 elevated in August, ferritin elevated in August with normal transferrin saturations. No need to repeat. (7) Hypertension: Plan: Likely does not usually take his prescribed valsartan or carvedilol therefore we will continue to hold these BPs without significant elevation (8) Abnormal CT of the head: Plan: Central pontine myelinolysis No focal neurology on exam Possible explains his generalized balance changes - has been getting up to the bathroom Brain MRI: central pontine myelinolysis Antiplatelets deferred given subacute suspected and hematochezia (9) Hypomagnesemia: Plan: Magnesium level 1.5 - total 3 g magnesium sulfate --> repeat 2.2 mag low again today, replaced IV Also with hypokalemia. 3.4 today replaced PO AM Mag (10) GERD (gastroesophageal reflux disease): Plan: Switch omeprazole to pantoprazole IV 40 mg daily (11) Hypothyroidism: Plan: TSH previously elevated in August, repeat with a.m. labs Secondary to not taking his usual levothyroxine therefore continue on just his usual dose Plan VTE prophylaxis - continue heparin SQ q 12 Disposition - continued inpatient stay Patient states that if he was unable to make decision for himself, he would want his ex- Rossana to make decisions on his behalf. Admission and Anticipated Discharge Date Admission Date: October 17, 2023 Supervising Physician Co-Signing Physician Notes Attending Attestation - Chart reviewed, care plan d/w HAMZAH Craven. I agree w/ the mccauley components of her documentation. Yoel Ellis MD Subjective patient seen sitting at the side of the bed. States he still having loose stools about every 2 hours. No blood in the stool, denies abdominal pain. No nausea or vomiting When I asked him today if he was considering going to rehab or getting sober he states that he has not thought about it and is "just trying to get through this" telemetry sinus rhythm in the 80s Review of Systems Review of Systems: All systems reviewed & are unremarkable except as noted in Subjective Physical Exam Physical Exam: General: NAD, VS as above HEENT: no scleral icterus, no gross neuro deficits, no tremor Resp: normal respiratory effort, lungs clear to auscultation CV: RRR, no murmur, Abd: normal bowel sounds, non tender, no hepatosplenomegaly Extremities: Moves all extremities, no edema Neuro: A&O x3, Skin: intact, no lesions noted Results & Data Results & Data Vital Signs (Past 12 Hours) Vital Signs Temp Pulse Pulse Resp BP Pulse Ox O2 Del Method 10/19/23 15:35 91 H 10/19/23 15:10 36.9 C 90 20 124/85 97 Room Air 10/19/23 11:08 36.9 C 81 18 131/88 95 Room Air 10/19/23 09:18 83 10/19/23 08:00 Room Air 10/19/23 07:12 36.9 C 84 18 143/75 H 97 Room Air Laboratory Results CBC, chemistry, magnesium reviewed PG Care Time/CCT Total # of Minutes Spent Total Time Spent with Patient: Total time spent is greater than 50% in coordination of care (as documented) at patient's floor/unit and/or counseling patient: Coding Level of Care Code 33057 SUB INP/OBS CARE 3/50MIN Diagnoses Alcohol withdrawal syndrome without complication F10.930 Complication of substance-induced condition: uncomplicated Sepsis A41.9 Acute pancreatitis K85.90 Acute kidney injury N17.9 Hematochezia K92.1 Anemia D64.9 Anemia type: unspecified type Hypertension I10 Abnormal CT of the head R93.0 Hypomagnesemia E83.42 GERD (gastroesophageal reflux disease) K21.9 Hypothyroidism E03.9 (1) Alcohol withdrawal Complication of substance-induced condition: uncomplicated Qualified Code(s): F10.930 - Alcohol use, unspecified with withdrawal, uncomplicated (6) Anemia Anemia type: unspecified type Qualified Code(s): D64.9 - Anemia, unspecified
[2023-10-19] MEDS: LOPERAMIDE HCL 2 MG CAP PO PRN (16:54)
[2023-10-20 06:31] LABS: Basophils # (auto) 0.03 K/uL (0.00-0.20); Basophils % (auto) 0.7 %; Eosinophils # (auto) 0.11 K/uL (0.00-0.50); Eosinophils % (auto) 2.6 %; Hematocrit (blood only) 23.9 % (42.0-52.0); Hemoglobin 8.2 g/dl (14.0-18.0); Immature Granulocytes # (auto) 0.13 K/uL (0.01-0.20); Immature Granulocytes % (auto) 3.1 %; Lymphocytes # (auto) 0.97 K/uL (1.20-3.40); Lymphocytes % (auto) 22.9 %; Mean Corpuscular Hemoglobin 34.7 pg (25.0-34.0); Mean Corpuscular Hgb Conc 34.3 g/dL (32.0-36.0); Mean Corpuscular Volume 101.3 fL (80.0-100.0); Mean Platelet Volume 10.9 fL (9.4-12.4); Monocytes # (auto) 0.51 K/uL (0.11-0.59); Monocytes % (auto) 12.1 %; Neutrophils # (auto) 2.48 K/uL (1.40-6.50); Neutrophils % (auto) 58.6 %; Nucleated RBC # (auto) 0.08 K/uL (0.00-0.12); Nucleated RBC % (auto) 1.9 %; Platelet Count 145 K/uL (130-400); RDW Coefficient of Variation 15.5 % (11.5-14.5); RDW Standard Deviation 56.4 fL (36.4-46.3); Red Blood Count 2.36 M/uL (4.70-6.10); White Blood Count 4.23 K/ul (4.8-10.8)
[2023-10-20 06:44] LABS: Albumin Globulin Ratio 1.2 (0.9-2); Albumin Level 3.2 gm/dl (3.4-5.0); BUN Creatinine Ratio 10.3 (10-20); Bilirubin,Total 0.9 mg/dl (0.2-1.0); Calcium 8.5 mg/dl (8.6-10.3); Est GFR (African American) 71.9 ml/min; Globulin 2.6 gm/dl (2.5-4.0); Magnesium 1.3 mg/dl (1.7-2.4); Potassium 3.5 mmol/L (3.5-5.1); Total Protein 5.8 gm/dl (6.0-8.3)
[2023-10-20] MEDS: MAGNESIUM SULFATE / D5W 1 GM/100 ML BAG IV SCH (08:25)
[2023-10-20 12:22] LABS: Amobarbital, Urine Conf NEGATIVE ng/mL (<100); Butalbital, Urine NEGATIVE ng/mL (<100); Pentobarbital, Urine Conf NEGATIVE ng/mL (<100); Phenobarbital, Urine 2490 ng/mL (<100); Secobarbital, Urine Conf NEGATIVE ng/mL (<100)
--- NOTE | 2023-10-20 15:37 | Discharge Summary ---
Discharge Summary Date of Service October 20, 2023 Notes For Next Care Provider Patient admitted with lightheaded and dizziness thought to be from dehydration due to frequent diarrhea also secondary to alcohol withdrawal. Also with weakness. He completed a phenobarbital taper without signs of withdrawal, patient repetitively states that he is not interested going to rehab to get sober, handout of local resources provided. encourage compliance of home medications instructed to stop drinking Medication Changes From Visit magnesium supplementation last dose of phenobarbital taper Admission HPI Per Admitting Provider Alexei Adams is a 58 year old male who presents to the ER per triage complaining of dizziness and lightheadedness. The patient reports he came because he is dehydrated because he drinks too much alcohol, he denies any complaints when seen. History taken from his ex- in the room (notably he has one adult daughter who just turned 18 who I believe would be default decision maker, not present at bedside and number not in EHR). She reports they have been trying to get him to come to the ER for weeks since his last admission in August for alcohol withdrawal which involved a withdrawal seizure and UTI. He reports going right ack to drinking alcohol following this admission with 1 bottle of [place] a day. He has lost control of his bowels with ongoing diarrhea for more than a week. Yesterday they looked more yellow and blood came from the rectum yesterday evening. Police were brought in for a well check yesterday but he continued to refuse to come to the hospital. The main problem has been generalized weakness and it got to such an extent today he was unable to get up to go out and buy his alcohol therefore was more agreeable to coming to the ER. He reports non-compliance with his medications, taking them intermittently today. He feels he can probably go home (but is agreeable to staying) and denies any current vision, speech, hearing, weakness, headache, respiratory, gastrointestinal or urinary symptoms. No fever or chills. Principal Dx & Hospital Course #1 = Principal Diagnosis (1) Alcohol withdrawal: had mild tremor on admission but otherwise no signs of symptoms of active withdrawal. Last alcohol 5/6 ?unclear what time of day - drinking ~ 1 pint per day received phenobarbital taper - did not require any of the as needed doses received high dose IV thiamine therapy, continue p.o. thiamine at discharge patient again declining to go to rehab states that he will go to meetings. I discussed with the patient the implications to his liver, kidney, pancreas and brain because of his drinking habits. family really wanting patient to go to rehab but understanding that we cannot for someone to go against their will (2) Acute pancreatitis: No epigastric pain however needs pancreatitis diagnosis criteria with imaging changes and lipase greater than 3 times the upper limit of normal Appears to be mild and extremely likely alcohol related Patient has received total of 6L of IVF so far - tolerating PO intake was given p.o. Creon (3) Sepsis: Procalcitonin elevated - suspect this was related to EARLINE and pancreatitis rather than actual infection Lactate 2.4 -> 1.7 CXR unremarkable UC negative Stool biofire and cdiff negative Blood cultures; 1 of 4 positive for Gram pos bacili - contaminant as other cultures remain negative no source of infection Cefepime given empirically in the ER - will switch to ceftriaxone as causes less encephalopathy, this was discontinued after no source found (4) Acute kidney injury: Suspect mostly pre-renal, UA noninfectious No post obstructive cause on CT resolved with rehydration (5) Hematochezia: No findings on CT to explain this - ?hemorrhoids vs diarrheal illness hemoglobin remained stable patient denies blood in stools 10/17 and 10/18 (6) Anemia: At baseline, monitor with AM labs with hematochezia Folate within normal limits of May, B12 elevated in August, ferritin elevated in August with normal transferrin saturations. No need to repeat. 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 labs Secondary to not taking his usual levothyroxine therefore continue on just his usual dose Plan dispo: Discharged to home today, strongly encouraged rehab again but patient continues to refuse. Provided written documentation of local resources Discharge Exam General: NAD, VS as above HEENT: no scleral icterus, no gross neuro deficits, no tremor Resp: normal respiratory effort, lungs clear to auscultation CV: RRR, no murmur, Abd: normal bowel sounds, non tender, no hepatosplenomegaly Neuro: A&O x3, Updated Medication List Medication Instructions Recorded Confirmed Type ezetimibe 10 mg tablet 10 mg PO HS 07/29/21 10/17/23 History atorvastatin 40 mg tablet 40 mg PO QPM #90 tabs 09/01/22 10/17/23 Rx multivitamin 1 tab PO QAM 11/10/22 10/17/23 History escitalopram oxalate 20 mg tablet 20 mg PO QPM #90 tabs 06/09/23 10/17/23 Rx cyanocobalamin (vitamin B-12) 500 500 mcg PO QAM #30 tabs 08/21/23 10/17/23 Rx mcg tablet levothyroxine 125 mcg tablet 125 mcg PO QAM #30 tabs 08/21/23 10/17/23 Rx omeprazole 40 mg capsule,delayed 40 mg PO BID #60 caps 08/21/23 10/17/23 Rx release thiamine HCl (vitamin B1) 100 mg 100 mg PO BID #60 tabs 08/21/23 10/17/23 Rx tablet albuterol sulfate 90 mcg/actuation 1 puff inhalation Q4 PRN sob 10/17/23 10/17/23 History aerosol inhaler carvedilol 6.25 mg tablet 6.25 mg PO BID 10/17/23 10/17/23 History loperamide 2 mg capsule 2 mg PO Q2H PRN loose stool #30 10/20/23 Rx caps magnesium chloride 64 mg 64 mg PO BID #60 tabs 10/20/23 Rx (magnesium chloride) tablet,delayed release (Mag 64) phenobarbital 30 mg tablet 30 mg PO Q24H #1 tab 10/20/23 Rx Hospital Stay Data Consultations 10/17/23 18:37 ED Decision to Admit Stat Diagnostic Imagining Performed Cervical Spine CT 10/17/23 16:10 CT OF THE CERVICAL SPINE WITHOUT CONTRAST CLINICAL HISTORY: fall COMPARISON STUDY: Cervical spine CT September 06, 2023. TECHNIQUE: Helical axial images of the cervical spine were obtained without IV contrast. Sagittal and coronal reconstructions were viewed. Automated exposure control was utilized for the study. A dose lowering technique was utilized adhering to the principles of ALARA. FINDINGS: Reversal of the cervical lordosis is similar to prior exam. Anterolisthesis of C3 on C4 is unchanged. No acute cervical spine fracture is present. Moderate multilevel degenerative disc disease and facet arthrosis is p resent. There is no prevertebral edema. IMPRESSION: No acute cervical spine fracture or subluxation. ACT 112: Negative or not required by law. Electronically signed by: Holland Au M.D. 10/17/2023 5:[address] 10/17/23 16:10 CT OF THE HEAD WITHOUT CONTRAST CLINICAL HISTORY: fall COMPARISON STUDY: Head CT September 06, 2023. TECHNIQUE: Helical axial images of the head were obtained without IV contrast. Automated exposure control was utilized for the study. A dose lowering technique was utilized adhering to the principles of ALARA. FINDINGS: No acute intracranial hemorrhage, midline shift or mass effect is present. The ventricular system is stable. A 1.6 x 1.3 cm hypodense focus within the central aspect of the gabriela is noted. The appearance has changed since prior CT. The basal cisterns are patent. No extra-axial collections are present. There are no findings to suggest acute dural sinus thrombosis or acute territorial infarct. No significant calvarial abnormalities are present. Visualized portions of the sinuses and mastoid air cells are clear. IMPRESSION: 1. No acute intracranial hemorrhage. 2. No calvarial fractures. 3. 1.6 x 1.3 cm hypodense focus within the central aspect of the gabriela. 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 An old pontine infarct could appear similar. ACT 112: Negative or not required by law. Electronically signed by: Holland Au M.D. 10/17/2023 5:22 PM Chest X-Ray 10/17/23 16:11 XR chest 1V portable CLINICAL HISTORY: fall TECHNIQUE: Single frontal radiograph of the chest was obtained. Comparison: Comparison is made to chest radiograph 08/16/2023 FINDINGS: No lines and tubes are seen. The cardiomediastinal silhouette is normal. The lungs are clear. No evidence of pleural effusion or pneumothorax. IMPRESSION: No acute chest disease. ACT 112: Negative or not required by law. Electronically signed by: David Owusu M.D. 10/17/2023 4:52 PM KUB X-Ray 10/17/23 16:11 XR KUB/Abdomen 1 view CLINICAL HISTORY: fal TECHNIQUE: 1 view of the abdomen was obtained. Comparison: Comparison is made to chest and abdomen radiographs 05/06/2014 FINDINGS: Posterior fixation hardware is seen spanning L5-S1. Degenerative changes are seen in the visualized skeleton. The bowel gas pattern is nonobstructive. Small stool burden is seen. IMPRESSION: Nonobstructive bowel gas pattern. ACT 112: Negative or not required by law. Electronically signed by: David Owusu M.D. 10/17/2023 4:53 PM Abdomen/Pelvis CT 10/17/23 16:44 CT OF THE ABDOMEN AND PELVIS WITHOUT CONTRAST CLINICAL HISTORY: Acute renal failure. COMPARISON STUDY: CT of the abdomen and pelvis August 12, 2023. KUB October 16 TECHNIQUE: Axial images of the abdomen and pelvis were obtained without IV contrast. Images were reviewed in the axial, sagittal, and coronal planes. Automated exposure control was utilized for the study. A dose lowering technique was utilized adhering to the principles of ALARA. FINDINGS: Lung bases are unremarkable. No pneumatosis, free air or portal venous gas is present. There are no renal, ureteral or bladder calculi. There is no hydronephrosis or hydroureter. Mild bilateral symmetric perinephric infiltration is similar to prior exam. Severe hepatic steatosis is noted. There is no biliary or pancreatic ductal dilatation. There is subtle stranding adjacent to the pancreatic head. Spleen, adrenal glands are unremarkable. There is no evidence for a bowel obstruction. No acute fractures are identified. There are no fluid collections. There is no lymphadenopathy. Stable postoperative findings within the lumbosacral spine are noted. IMPRESSION: 1. No urinary calculi or hydronephrosis. 2. Subtle infiltration adjacent to the pancreatic head. Findings could be correlated with serum lipase level to exclude mild acute pancreatitis. 3. Hepatic steatosis. 4. No bowel obstruction. ACT 112: Negative or not required by law. Electronically signed by: Holland Au M.D. 10/17/2023 5:44 PM Brain MRI 10/18/23 06:35 MR brain wo con CLINICAL HISTORY: Abnormal CT ?CVA TECHNIQUE: Multiplanar and multisequence MR images of the brain were obtained without intravenous contrast. Comparison: Comparison is made to CT head 10/17/2023 FINDINGS: No abnormal restricted diffusion is identified. The white matter is unremarkable. The ventricular system is normal in appearance. Previously noted pontine hypodensity corresponds to a focus of increased T2 signal in the gabriela with increased FLAIR peripherally. There is no mass effect or midline shift. There is no evidence of acute intraparenchymal hemorrhage. No extra axial fluid collections are seen. The corpus callosum, pituitary gland, and cerebellar tonsils appear grossly unremarkable. Flow voids of the major intracranial arterial vessels are identified. The imaged portions of the paranasal sinuses, mastoid air cells, and orbits are unremarkable. IMPRESSION: Previously noted pontine hypodensity corresponds to fluid density in the gabriela compatible with central pontine myelinolysis. ACT 112: Negative or not required by law. Electronically signed by: David Owusu M.D. 10/18/2023 9:07 AM Pending Results Patient Have Any Pending Studies at Discharge: No Discharge Instructions Given to Patient (Per Discharging Provider) Mr. Adams, mendoza were hospitalized after having multiple episodes of diarrhea, which is likely consequence of your drinking habits. You also had mild pancreatitis, acute pontine myelolysis and an acute kidney injury. you also had multiple electrolyte disturbances. you are drinking as cause you to be very sick, you are going to have lasting impact from this. It was suggested multiple times that you attend rehab to get sober however you declined these. You were given a handout on local resources and meetings that you can attend. You have 1 more dose of your phenobarbital that I have sent to the pharmacy to complete your withdrawal taper. I have also sent magnesium supplement that you should take every day. You can take Imodium for loose stools. Follow the instructions on the box. I would recommend that you stop drinking. Total Time Total Time Spent Total Time Spent (In Minutes): Time spend day of discharge 50+ minutes including direct patient care, medication reconciliation, documentation, review of labs and images, and coordination of care. this also includes a 23-minute conversation that I had with patient's mother over the phone regarding why we cannot force him to attend rehab and overall updates about patient's condition Coding Level of Care Code 50432 INP/OBS DISCH >30 MIN Diagnoses Alcohol withdrawal syndrome without complication F10.930 Complication of substance-induced condition: uncomplicated Acute pancreatitis K85.90 Sepsis A41.9 Acute kidney injury N17.9 Hematochezia K92.1 Anemia D64.9 Anemia type: unspecified type Hypertension I10 Abnormal CT of the head R93.0 Hypomagnesemia E83.42 GERD (gastroesophageal reflux disease) K21.9 Hypothyroidism E03.9
[2023-10-21] MEDS ORDERED: PHENobarbitaL 30 MG TAB PO SCH (03:00)
== END 2023-10-20 18:14 | disposition home or self-care (01) | DRG 896 ==
LOC: ED 15:54 → SUATTDRO 19:02 → EDINP 19:02 → 2S 22:24
DX: G37.2 Central pontine myelinolysis; E86.0 Dehydration; R19.7 Diarrhea, unspecified; K85.20 Alcohol induced acute pancreatitis without necrosis or infection; E03.9 Hypothyroidism, unspecified; R65.11 Systemic inflammatory response syndrome (SIRS) of non-infectious origin with acute organ dysfunction; E83.42 Hypomagnesemia; Z88.8 Allergy status to other drugs, medicaments and biological substances; Z79.890 Hormone replacement therapy; Z88.2 Allergy status to sulfonamides; F10.239 Alcohol dependence with withdrawal, unspecified; D64.9 Anemia, unspecified; K92.1 Melena; Z91.148 Patient's other noncompliance with medication regimen for other reason; N17.9 Acute kidney failure, unspecified; I10 Essential (primary) hypertension

== ENCOUNTER 2023-11-14 13:35 | Inpatient (IN) ==
--- NOTE | 2023-11-14 14:14 | Emergency Department Note ---
Impression & Plan EARLINE (acute kidney injury) ADMIT ED Provider Note HPI: History obtained from patient and patient's brother at the bedside. The patient is a 58-year-old gentleman with history of chronic alcoholism, who presents the emergency department with a chief complaint of multiple falls at home recently. Patient's brother is at the bedside and is serving most of the history, he states that the patient's ex- came to visit him today and the patient mentioned that he had had some falls recently and was complaining of some right shoulder pain. Patient states his last drink was 2 days ago because he ran out of alcohol. On arrival here to the ED the patient is initially 71/49, heart rate is 119, patient is afebrile and saturating well on room air. By the time I was assessing the patient in the room his repeat blood pressure is 94/55, heart rate remains within normal limits. Patient is somewhat slow to answer some of my questions but he is alert and oriented x 3, he does not display any focal deficits on my initial evaluation. ROS: - Per HPI Differential Diagnosis: Dehydration/acute kidney injury, alcohol withdrawal syndrome, traumatic pathology to include skull fracture, subdural hematoma, epidural hematoma, critical electrolyte abnormalities to include hyponatremia, hypokalemia/hyperkalemia, pneumonia, urinary tract infection, sepsis, amongst other potential pathologies. *Outpatient medications and allergy history reviewed. PE: General: Alert, disheveled appearing, frail-appearing HEENT: Normocephalic, trachea midline Eyes: Extraocular eye movement is intact, no scleral erythema Pulmonary: Clear to auscultation bilaterally, no wheezing Cardio: Regular rate and rhythm GI: Abdomen is soft to palpation : No suprapubic tenderness MSK: No evidence of trauma or malformation of the extremities, no edema, patient maintains flexion at the hips bilaterally Skin: No evidence of rash Neuro: Alert, no focal deficits Psychiatric: Cooperative INDEPENDENT INTERPRETATIONS: director mortgage: (As interpreted by myself): - An order was placed for continuous cardiac monitoring - Patient was noted to be in sinus rhythm with a rate of 80 EKG: (As interpreted by myself): Rate: 99 Rhythm: Normal sinus rhythm Intervals: Within normal limits ST changes: No ST elevation Time: 1357 Chest x-ray: (As interpreted by myself): No acute disease Interventions provided in ED: -IV fluid bolus, IV thiamine, IV folic acid, oral potassium Medical Decision Making: IV was established and lab work obtained, patient was placed on tawer. Lab work shows no leukocytosis, hemoglobin is stable at 8.8 which appears to be the patient's baseline. Platelet count is normal, CMP shows multiple abnormalities including hypokalemia at 2.7, hyponatremia 132, creatinine is elevated at 5.01 (baseline appears to be near normal), magnesium is low at 1.4. CT imaging of the head was obtained that shows no evidence of any acute intracranial process. Chest x-ray does not show any evidence of acute disease. Patient was given IV fluids here in the ED as well as IV folic acid and IV thiamine. His blood pressure is stable following IV fluids, heart rate is within normal limits. Patient does not appear to be going through any active alcohol withdrawal at this time, his alcohol level is noted to be negative. Given the patient's acute kidney injury and multiple electrolyte abnormalities, I did recommend admission and the patient and his brother at the bedside are in agreement. Case was discussed with the on-call hospitalist, Dr. Babin, and the patient was placed for admission in stable condition. Consultants/Discussions held with other healthcare providers: -Hospitalist, Dr. Babin Disposition discussion held by myself with: -Patient and patient's brother at the bedside Diagnosis: 1. Acute kidney injury 2. Hypokalemia, acute 3. Hyponatremia, acute 4. Hypomagnesemia, acute 5. History of alcohol abuse with ambulatory dysfunction Disposition: Admission Ranulfo Doherty DO Emergency Medicine Past Med/Surg History Problem List (Updated 11/14/23 @ 18:59 by Ranulfo Doherty DO) EARLINE (acute kidney injury) (Acute) Noncompliance with medication regimen 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 Acute kidney injury Hematochezia Hypokalemia Acute pancreatitis Sepsis Alcohol withdrawal Diarrhea (Acute) Abnormal CT of the head (Acute) Weakness (Acute) Hypomagnesemia (Acute) Anemia (Acute) Acute renal failure (ARF) (Acute) Hypomagnesemia Anemia Elevated LFTs Hyperlipidemia Hypertension Acute alcoholic hepatitis (Acute) Benign localized prostatic hyperplasia with lower urinary tract symptoms (LUTS) Prediabetes Presumed- Hgb A1C 6.3 on 10/12/22 Encounter for pre-operative examination Renal insufficiency Dyspnea Left rotator cuff tear Spermatocele Abnormal CT lung screening Coronary artery calcification seen on CAT scan chest CT 03/2020 negative stress test 06/2021 Radial head fracture, closed Alcohol abuse Left-sided chest pain (Acute) Hypothyroidism (Chronic) Current smoker Adjustment disorder with depressed mood (Acute) Allergic rhinitis (Acute) Barretts esophagus (Acute) Chronic cough (Acute) Colon polyps (Acute) Hiatal hernia (Acute) Inhibited sexual excitement (Acute) Obstructive sleep apnea (Acute) no device Periodic limb movements of sleep (Acute) Small airways disease (Acute) prn inhaler for this > rare res inh use Asthma INHALER DAILY GERD (gastroesophageal reflux disease) (Chronic) Hyperlipidemia (Chronic) Hypertension (Chronic) Medical History (Updated 11/14/23 @ 18:59 by Ranulfo Doherty DO) UTI (urinary tract infection) Thrombocytopenia Acute dehydration Anxiety Hypothyroidism GERD (gastroesophageal reflux disease) Surgical History S/P wrist surgery R WRIST REPAIR OF TORN TENDON Hx of vasectomy History of colonoscopy History of esophagogastroduodenoscopy (EGD) History of appendectomy History of tooth extraction WISDOM TEETH History of tonsillectomy S/P LASIK surgery of both eyes History of lumbar spinal fusion Family History Father Alcohol abuse COPD (chronic obstructive pulmonary disease) Hypertension Reported family history of early sudden deaths Mother Hypertension Hyperlipidemia Brother Hypertension Sister Graves' disease Social History Smoking Status: Current every day smoker Tobacco Type: Cigarettes Cigarettes Per Day: 1 ppd; Second Hand Exposure: No; Do You Dip or Chew Tobacco: No; Hx Alcohol Use: No Hx Substance Use: Yes Substance Use Type Other:: medical card very occasional Preferred Language: Indonesian Communication Ability: Effective Visual Impairment: Limited Hearing Ability: Normal Microelectronics Assembler Required: No Beliefs That Will Affect Care: None marital status: Current Living Situation: Significant Other Current Living Situation Comment: LIVES WITH GIRLFRIEND current occupational status: employed current occupation: [employer] Feels Safe at Home: Yes Childhood Exposure to Second-Hand Smoke: No caffeine: Yes Dental Care, Regularly: Yes Physical Activity Frequency: Does not Exercise Seatbelt Use: always Sunscreen Use: No Assistive Devices: Walker Allergies Allergies Allergy/AdvReac Type Severity Reaction Status Date / Time Sulfa (Sulfonamide Allergy Intermediate HIVES Verified 11/14/23 16:34 Antibiotics) MARGARET Inhibitors AdvReac Intermediate COUGH Verified 11/14/23 16:34 amlodipine AdvReac Intermediate FATIGUE Verified 11/14/23 16:34 clonidine AdvReac Intermediate HEADACHES Verified 11/14/23 16:34 varenicline [From Chantix] AdvReac Intermediate JITTERY/SHA Verified 11/14/23 16:34 KES Home Meds Home Medications Medication Instructions Recorded Confirmed ezetimibe 10 mg tablet 10 mg PO HS 07/29/21 11/14/23 albuterol sulfate 90 mcg/actuation 1 puff inhalation Q4 PRN sob 10/17/23 11/14/23 aerosol inhaler folic acid 1 mg tablet 1 mg PO QAM 11/14/23 11/14/23 furosemide 40 mg tablet 40 mg PO QAM 11/14/23 11/14/23 valsartan 320 mg tablet 320 mg PO QAM 11/14/23 11/14/23 Previous Rx's Medication Instructions Recorded atorvastatin 40 mg tablet 40 mg PO QPM #90 tabs 09/01/22 escitalopram oxalate 20 mg tablet 20 mg PO QPM #90 tabs 06/09/23 levothyroxine 125 mcg tablet 125 mcg PO QAM #30 tabs 08/21/23 omeprazole 40 mg capsule,delayed 40 mg PO BID #60 caps 08/21/23 release loperamide 2 mg capsule 2 mg PO Q2H PRN loose stool #30 10/20/23 caps phenobarbital 30 mg tablet 30 mg PO Q24H #1 tab 10/20/23 Results & Data (ED) Vital Signs Vital Signs - 24 hr 11/14/23 13:40 11/14/23 14:33 11/14/23 14:51 Temperature 36.2 C L Temperature Source Temporal Artery Scan Pulse Rate 119 H 90 95 H Pulse Rate [Right Finger] Pulse Rhythm Regular Regular Pulse Strength Normal Respiratory Rate 18 23 14 Respiratory Effort / Characteristics Non-Labored Respiratory Depth Normal Respiratory Pattern Regular Blood Pressure 71/49 L 91/57 L Blood Pressure [Right Arm] Blood Pressure Mean 56 68 Blood Pressure Mean [Right Arm] Blood Pressure Position Sitting Pulse Oximetry 98 98 98 Oxygen Delivery Method Room Air Room Air Room Air Sepsis Recent Fever Within 48 Hours No Sepsis New/Unexplained Change in Mental Status N/A Sepsis Action Taken by Nursing No Action Required 11/14/23 15:48 11/14/23 15:51 11/14/23 15:52 Temperature Temperature Source Pulse Rate 89 88 Pulse Rate [Right Finger] 88 Pulse Rhythm Pulse Strength Respiratory Rate 24 22 Respiratory Effort / Characteristics Non-Labored Spontaneous Respiratory Depth Normal Respiratory Pattern Blood Pressure 108/67 Blood Pressure [Right Arm] 108/67 Blood Pressure Mean 79 Blood Pressure Mean [Right Arm] 80 Blood Pressure Position Pulse Oximetry 95 99 Oxygen Delivery Method Room Air Room Air Sepsis Recent Fever Within 48 Hours Sepsis New/Unexplained Change in Mental Status Sepsis Action Taken by Nursing 11/14/23 17:30 11/14/23 17:33 11/14/23 18:37 Temperature Temperature Source Pulse Rate 88 90 90 Pulse Rate [Right Finger] Pulse Rhythm Regular Pulse Strength Respiratory Rate 24 20 20 Respiratory Effort / Characteristics Respiratory Depth Respiratory Pattern Blood Pressure 114/74 104/76 Blood Pressure [Right Arm] Blood Pressure Mean 89 Blood Pressure Mean [Right Arm] Blood Pressure Position Pulse Oximetry 97 94 Oxygen Delivery Method Room Air Sepsis Recent Fever Within 48 Hours Sepsis New/Unexplained Change in Mental Status Sepsis Action Taken by Nursing 11/14/23 18:38 Temperature Temperature Source Pulse Rate 88 Pulse Rate [Right Finger] Pulse Rhythm Pulse Strength Respiratory Rate 24 Respiratory Effort / Characteristics Respiratory Depth Respiratory Pattern Blood Pressure 104/76 Blood Pressure [Right Arm] Blood Pressure Mean 88 Blood Pressure Mean [Right Arm] Blood Pressure Position Pulse Oximetry 99 Oxygen Delivery Method Room Air Sepsis Recent Fever Within 48 Hours Sepsis New/Unexplained Change in Mental Status Sepsis Action Taken by Nursing Laboratory Data 11/14/23 14:10 11/14/23 14:10 Lab Results 11/14/23 11/14/23 11/14/23 Range/Units 14:10 15:50 16:15 WBC 8.93 (4.8-10.8) K/ul RBC 2.68 L (4.70-6.10) M/uL Hgb 8.8 L (14.0-18.0) g/dl Hct 26.1 L (42.0-52.0) % MCV 97.4 (80.0-100.0) fL MCH 32.8 (25.0-34.0) pg MCHC 33.7 (32.0-36.0) g/dL RDW Std Deviation 59.9 H (36.4-46.3) fL RDW Coeff of Joshua 17.0 H (11.5-14.5) % Plt Count 196 (130-400) K/uL MPV 10.9 (9.4-12.4) fL Immature Gran % (Auto) 2.6 % Neut % (Auto) 78.7 % Lymph % (Auto) 5.8 % Carver % (Auto) 12.5 % Eos % (Auto) 0.2 % Baso % (Auto) 0.2 % Neut # (Auto) 7.02 H (1.40-6.50) K/uL Lymph # (Auto) 0.52 L (1.20-3.40) K/uL Carver # (Auto) 1.12 H (0.11-0.59) K/uL Eos # (Auto) 0.02 (0.00-0.50) K/uL Baso # (Auto) 0.02 (0.00-0.20) K/uL Immature Gran # (Auto) 0.23 H (0.01-0.20) K/uL Absolute Nucleated RBC 0.08 (0.00-0.12) K/uL Nucleated RBC % (auto) 0.9 % Sodium 132 L (136-145) mmol/L Potassium 2.7 L (3.5-5.1) mmol/L Chloride 89 L (98-107) mmol/L Carbon Dioxide 21 (21-32) mmol/L Anion Gap 22 H (3-11) BUN 58 H (6-23) mg/dl Creatinine 5.01 H* (0.6-1.4) mg/dl Est Cr Clr Drug Dosing 16.4 ml/min Est GFR ( Amer) 13.5 ml/min Est GFR (Non-Af Amer) 11.7 ml/min BUN/Creatinine Ratio 11.6 (10-20) Glucose 128 H (70-99(Fasting)) mg/dl Lactate 2.3 H* 1.1 (0.4-2.0) mmol/L Calcium 9.4 (8.6-10.3) mg/dl Magnesium 1.4 L (1.7-2.4) mg/dl Total Bilirubin 1.7 H (0.2-1.0) mg/dl Direct Bilirubin 0.8 H (0-0.2) mg/dl AST 101 H (13-39) U/L ALT 33 (7-52) U/L Alkaline Phosphatase 183 H (34-104) U/L Troponin I High Sens 19.3 (0-20) pg/ml Total Protein 7.3 (6.0-8.3) gm/dl Albumin 3.9 (3.4-5.0) gm/dl Lipase 1778 H (11-82) U/L Procalcitonin 3.85 H (0-0.5) ng/ml Stl C. diff Tox B Gene Negative Cdiff Gene (Neg) Ethyl Alcohol mg/dL < 10.0 (<10.0) mg/dl Administered Medications Lactated Ringer's (Lr) 1,000 mls @ 250 mls/hr IV .Q4H NAEEM Stop: 11/15/23 01:14 Last Admin: 11/14/23 17:30 Dose: 250 mls/hr Documented By: VERONICA Discontinued Medications Sodium Chloride (Nss) 1,000 mls @ 999 mls/hr IV .Q1H1M NAEEM Stop: 11/14/23 16:15 Last Infusion: 11/14/23 15:55 Dose: Infused Documented By: Admin: 11/14/23 14:43 Dose: 999 mls/hr Documented By: Infusion: 11/14/23 14:43 Dose: Infused Documented By: Admin: 11/14/23 14:34 Dose: 999 mls/hr Documented By: VERONICA Folic Acid 1 mg/ Syringe 10 mls @ 5 mls/min IV NOW STA Stop: 11/14/23 14:11 Last Admin: 11/14/23 15:18 Dose: 5 mls/min Documented By: VERONICA Thiamine HCl 100 mg/ Syringe 10 mls @ 2 mls/min IV NOW STA Stop: 11/14/23 14:17 Last Admin: 11/14/23 14:43 Dose: 2 mls/min Documented By: VERONICA Potassium Chloride/Sodium Chloride (Normal Saline W/20 Meq Kcl) 20 meq in 1,000 mls @ 125 mls/hr IV .Q8H NAEEM; Protocol Stop: 12/14/23 15:14 Last Infusion: 11/14/23 17:35 Dose: Infused Documented By: Admin: 11/14/23 15:16 Dose: 125 mls/hr Documented By: VERONICA Magnesium Sulfate/Dextrose (Magnesium Sulfate / D5w) 1 gm in 100 mls @ 200 mls/hr IV Q30M NAEEM Stop: 11/14/23 16:03 Last Infusion: 11/14/23 16:26 Dose: Infused Documented By: Admin: 11/14/23 15:55 Dose: 200 mls/hr Documented By: Infusion: 11/14/23 15:46 Dose: Infused Documented By: Admin: 11/14/23 15:16 Dose: 200 mls/hr Documented By: VERONICA Phenobarbital Sodium (Phenobarbital Sodium 65 Mg/Ml Vial) 260 mg IV NOW STA Stop: 11/14/23 18:23 Last Admin: 11/14/23 18:37 Dose: 260 mg Documented By: VERONICA Potassium Chloride (Potassium Chloride Pwd 20 Meq Pack) 40 meq PO NOW STA Stop: 11/14/23 15:04 Last Admin: 11/14/23 15:16 Dose: 40 meq Documented By: VERONICA Imaging Data Radiologist's Impression: Chest X-Ray 11/14/23 14:02 XR chest 1V portable HISTORY: Sepsis COMPARISON: Chest 10/17/2023. FINDINGS: There are low lung volumes with mild elevation of the right hemidiaphragm. This remains unchanged the lungs are clear. The heart is normal in size. No pleural effusions. No pneumothorax. No acute fractures identified. IMPRESSION: No significant change compared to the prior study. No acute process. ACT 112: Negative or not required by law. Electronically signed by: Low Cuello M.D. 11/14/2023 2:[address] 11/14/23 14:06 CT head/brain wo con CLINICAL HISTORY: 58 years-old Male with fall. Acute head trauma status post fall TECHNIQUE: Multiple axial CT images of the head were obtained without contrast. A dose lowering technique was utilized adhering to the principles of ALARA. CT DOSE: 625.8 mGy.cm COMPARISON: 10/17/2023. FINDINGS: No acute intracranial hemorrhage, midline shift, intracranial mass, hydrocephalus, territorial ischemia or abnormal extra-axial collection. Involutional changes with chronic microvascular ischemic disease. Unchanged 1.6 cm hypodense focus of the central gabriela. The calvarium is intact. The paranasal sinuses, mastoid air cells, and middle ear cavities are clear. IMPRESSION: 1. No acute intracranial abnormality or calvarial fracture. 2. Chronic findings as above. ACT 112: Negative or not required by law. The above report was generated using voice recognition software. It may contain grammatical, syntax or spelling errors. Electronically signed by: Sumit Richey M.D. 11/14/2023 3:36 PM Discharge Plan Visit Data Chief Complaint: Fall Stated Complaint: FALLS ED Provider: Ranulfo Doherty Discharge Problem: EARLINE (acute kidney injury) Forms Stand Alone Forms: [facility] Prescriptions Prescriptions: No Action atorvastatin 40 mg tablet 40 mg PO QPM Qty: 90 3RF Hold Instructions: Resume on 09/15/23. Rx Instructions: PER PT "DON'T KNOW WHEN LAST TOOK MEDS". LAST FILLED 07/13/23 FOR 90 DAYS. escitalopram oxalate 20 mg tablet 20 mg PO QPM Qty: 90 1RF Rx Instructions: PER PT "DON'T KNOW WHEN LAST TOOK MEDS". LAST FILLED 06/09/23 FOR 90 DAYS ezetimibe 10 mg tablet 10 mg PO HS Hold Instructions: Resume on 09/15/23. Rx Instructions: PER PT "DON'T KNOW WHEN LAST TOOK MEDS". LAST FILLED 06/28/23 FOR 90 DAYS omeprazole 40 mg capsule,delayed release(DR/EC) 40 mg PO BID Qty: 60 3RF Rx Instructions: PER PT "DON'T KNOW WHEN LAST TOOK MEDS". levothyroxine 125 mcg tablet 125 mcg PO QAM Qty: 30 3RF Rx Instructions: PER PT "DON'T KNOW WHEN LAST TOOK MEDS". LAST FILLED 07/13/23 FOR 90 DAYS furosemide 40 mg tablet 40 mg PO QAM Rx Instructions: PER PT "DON'T KNOW WHEN LAST TOOK MEDS". LAST FILLED 08/21/23 FOR 30 DAYS valsartan 320 mg tablet 320 mg PO QAM Rx Instructions: PER PT "DON'T KNOW WHEN LAST TOOK MEDS". LAST FILLED 08/22/23 FOR 30 DAYS. folic acid 1 mg tablet 1 mg PO QAM Rx Instructions: PER PT "DON'T KNOW WHEN LAST TOOK MEDS". LAST FILLED 08/21/23 FOR 30 DAYS albuterol sulfate 90 mcg/actuation HFA aerosol inhaler 1 puff inhalation Q4 PRN (Reason: sob) Rx Instructions: PER PT "DON'T KNOW WHEN LAST TOOK MEDS". LAST FILLED 07/23/23. phenobarbital 30 mg Tablet 30 mg PO Q24H Qty: 1 0RF Rx Instructions: PER PT "DON'T KNOW WHEN LAST TOOK MEDS". ORDERED 10/20/23, PER PT "NEVER MINILAB OPERATOR FROM PHARMACY". loperamide 2 mg Capsule 2 mg PO Q2H PRN (Reason: loose stool) Qty: 30 0RF Rx Instructions: PER PT "DON'T KNOW WHEN LAST TOOK MEDS". Referrals Referrals: PCP,NO [Primary Care Provider] -
[2023-11-14 14:31] LABS: Basophils # (auto) 0.02 K/uL (0.00-0.20); Basophils % (auto) 0.2 %; Eosinophils # (auto) 0.02 K/uL (0.00-0.50); Eosinophils % (auto) 0.2 %; Hematocrit (blood only) 26.1 % (42.0-52.0); Hemoglobin 8.8 g/dl (14.0-18.0); Immature Granulocytes # (auto) 0.23 K/uL (0.01-0.20); Immature Granulocytes % (auto) 2.6 %; Lymphocytes # (auto) 0.52 K/uL (1.20-3.40); Lymphocytes % (auto) 5.8 %; Mean Corpuscular Hemoglobin 32.8 pg (25.0-34.0); Mean Corpuscular Hgb Conc 33.7 g/dL (32.0-36.0); Mean Corpuscular Volume 97.4 fL (80.0-100.0); Mean Platelet Volume 10.9 fL (9.4-12.4); Monocytes # (auto) 1.12 K/uL (0.11-0.59); Monocytes % (auto) 12.5 %; Neutrophils # (auto) 7.02 K/uL (1.40-6.50); Neutrophils % (auto) 78.7 %; Nucleated RBC # (auto) 0.08 K/uL (0.00-0.12); Nucleated RBC % (auto) 0.9 %; Platelet Count 196 K/uL (130-400); RDW Standard Deviation 59.9 fL (36.4-46.3); Red Blood Count 2.68 M/uL (4.70-6.10); White Blood Count 8.93 K/ul (4.8-10.8)
[2023-11-14] MEDS: SODIUM CHLORIDE 0.9% 1,000 ML IV SCH (14:34)
[2023-11-14] MEDS: THIAMINE HCL 100 MG in SYRINGE 9 ML IV STA (14:43)
--- NOTE | 2023-11-14 14:51 | XRay Report ---
XR chest 1V portable HISTORY: Sepsis COMPARISON: Chest 10/17/2023. FINDINGS: There are low lung volumes with mild elevation of the right hemidiaphragm. This remains unc hanged the lungs are clear. The heart is normal in size. No pleural effusions. No pneumothorax. No ac tuscarora fractures identified. IMPRESSION: No significant change compared to the prior study. No acute process. ACT 112: Negative or not required by law. Electronically signed by: Low Cuello M.D. 11/14/2023 2:49 PM
[2023-11-14 15:00] LABS: Albumin Level 3.9 gm/dl (3.4-5.0); BUN Creatinine Ratio 11.6 (10-20); Bilirubin Direct 0.8 mg/dl (0-0.2); Bilirubin,Total 1.7 mg/dl (0.2-1.0); Calcium 9.4 mg/dl (8.6-10.3); Creatinine Clr Calc Pharmacy 16.4 ml/min; Est GFR (African American) 13.5 ml/min; Est GFR (Non-African American) 11.7 ml/min; Magnesium 1.4 mg/dl (1.7-2.4); Potassium 2.7 mmol/L (3.5-5.1); Total Protein 7.3 gm/dl (6.0-8.3)
[2023-11-14 15:01] LABS: Troponin I High Sensitivity 19.3 pg/ml (0-20)
[2023-11-14] MEDS: MAGNESIUM SULFATE / D5W 1 GM/100 ML BAG IV SCH ×2 (15:16→21:17)
[2023-11-14] MEDS: POTASSIUM CHLORIDE PWD 20 MEQ PACK PO STA (15:16)
[2023-11-14] MEDS: NSS + 20MEQ KCL 20 MEQ/1,000 ML BAG IV SCH (15:16)
[2023-11-14] MEDS: FOLIC ACID 1 MG in SYRINGE 9.8 ML IV STA (15:18)
--- NOTE | 2023-11-14 15:38 | CT Scan Report ---
CT head/brain wo con CLINICAL HISTORY: 58 years-old Male with fall. Acute head trauma status post fall TECHNIQUE: Multiple axial CT images of the head were obtained without contrast. A dose lowering tech nique was utilized adhering to the principles of ALARA. CT DOSE: 625.8 mGy.cm COMPARISON: 10/17/2023. FINDINGS: No acute intracranial hemorrhage, midline shift, intracranial mass, hydrocephalus, territorial ischem ia or abnormal extra-axial collection. Involutional changes with chronic microvascular ischemic disea se. Unchanged 1.6 cm hypodense focus of the central gabriela. The calvarium is intact. The paranasal sinuses, mastoid air cells, and middle ear cavities are clear . IMPRESSION: 1. No acute intracranial abnormality or calvarial fracture. 2. Chronic findings as above. ACT 112: Negative or not required by law. The above report was generated using voice recognition software. It may contain grammatical, syntax o r spelling errors. Electronically signed by: Sumit Richey M.D. 11/14/2023 3:36 PM
--- NOTE | 2023-11-14 16:18 | History & Physical Report ---
Date of Service November 14, 2023 Assessment & Plan (1) Acute renal failure (ARF): Plan: BUN 58, creatinine 5.01 (baseline 1.26), and EGFR 11.7 Lactate 2.1-->1.1 on arrival Avoid all nephrotoxic agents Suspect this could be due to a combination of prerenal EARLINE, ongoing diarrhea/GI losses, and alcohol abuse Lactated ringer at 250 mL/hr x 2 A.m. CBC, CMP, mag (2) Alcohol abuse: Plan: History of admissions for alcohol withdrawal; at present, he denies alcohol withdrawal seizures Last drink 2 days ago Alcohol level WNL on arrival Lipase elevated at 1778 Strict n.p.o. for now A/P CT without contrast ordered, pending to assess for pancreatitis Lactate dehydrogenase ordered IVF resuscitation (as above) Fall precautions Seizure precautions AWSS at risk protocol RASS q4h Communication order to notify provider for RASS >0 or AWSS >8 Thiamine and folate supplementation daily Case management consulted as patient is open to discussing alcohol cessation/rehab (3) Alcohol withdrawal: Plan: Will start on IV phenobarbital taper Plan (as above) (4) Hypokalemia: Plan: K 2.7 on arrival Potassium 40mEq p.o. given Trend BMP q4h (5) Hypomagnesemia: Plan: Magnesium 1.4 on arrival Suspect secondary to diarrhea Magnesium sulfate 1 g x 3 given Recheck a.m. mag (6) Diarrhea: Plan: PCR stool and C. difficile ordered, pending Patient denies blood in stool and melena (7) Anemia: Plan: Chronic; however, Hgb 8.8-->7.5 on arrival, which may be secondary to IV fluids, volume contraction, and/or phlebotomy Clinically, no signs of active bleeding on physical exam In the setting of acute falls/trauma with unclear history, will continue to trend H&H q4h x 2 Typed and screened Had a long discussion with patient regarding blood consent form; risks and benefits discussed, as well as recommended transfusion if patient becomes symptomatic or Hgb drops below 7.0 Patient declines blood transfusion at this time Patient was informed that he can change his decision at any time if he wishes (8) Fall: Plan: Fall x 2 on 11/12 and 11/13 Patient only vaguely remembers falling; struck head and right shoulder He endorses right shoulder pain at present Right shoulder x-ray ordered, pending (9) Noncompliance with medication regimen: Plan: Patient reports he has not taken any of his medications in the past 2 days Per discussion with [facility], patient has several medications that were last filled months ago, and have likely ran out (10) Hypothyroidism: Plan: TSH ordered, pending Continue levothyroxine (11) Hypertension: (12) Acute pancreatitis: Plan Disposition: Admit to PCU telemetry Full code N.p.o. for now pending CT A/P VTE PPx: SCDs (hold chemical DVT PPx for 24 hours in the setting of acute head trauma) History of Present Illness Chief Complaint: Fall, alcohol abuse Primary Care Provider: NO PCP Alexei is a 58-year-old male with PMH of alcohol use disorder, alcohol withdrawal seizures, central pontine myelinolysis, asthma, hypothyroidism, HLD, GERD, Hunter's esophagus, SUZI, allergic rhinitis, anxiety. He presented via [facility] for a fall on 11/13. No LOC. Patient reports he struck his head as well as his right shoulder. He is unsure if he fell yesterday, and only vaguely remembers falling today. Patient does have a history of alcohol abuse; reports he is dehydrated and that his last alcohol drink was 2 days ago. He was previously drinking around 4 drinks per day of rum. He has not taking any of his regular medications in the past 2 days; no recent change in medications. No change in dietary habits, but has been drinking less fluids. Patient endorses 10/10 right shoulder pain at present, which she attributes to the fall. The pain radiates down his hand; no radiation to the scapula. It is a constant pain, that is worse with movements, and patient has difficulty lifting the arm. He did not take any pain medicine before coming in. When asked about history of alcohol withdrawal, he denies any history of alcohol withdrawal seizures. When asked why the patient started drinking again, he reports he is unsure why; he does note he is open to speaking with people about alcohol cessation during this admission. No PMH of kidney stones, AK, or DVT/PE to his knowledge. He does endorse tobacco cigarette smoking; <1PPD. He denies recreational drug use. Patient is mildly hypothermic at 36.2 C at time of admission. ED course: NSS 1000 mL IV NSS with 20mEq IV x 1 Potassium supplementation 40mEq p.o. Magnesium 1 g IV Folic acid 1 mg IV Thiamine 100 mg IV ROS: Patient endorses confusion, fatigue, and right shoulder pain/tingling. Patient denies fever, chills, night-sweats, body aches, dizziness, l ightheadedness, GRANGER, chest pain, SOB, cough, pleuritic CP, abdominal pain, nausea, vomiting, hematemesis, no blood in urine/stool, melena, and change in urinary/bowel. Per discussion with med rec, patient has not filled certain 30-day medications since August 2023, which could indicate poor compliance with medications over the past several months. Allergies Allergy/AdvReac Type Severity Reaction Status Date / Time Sulfa (Sulfonamide Allergy Intermediate HIVES Verified 11/14/23 16:34 Antibiotics) MARGARET Inhibitors AdvReac Intermediate COUGH Verified 11/14/23 16:34 amlodipine AdvReac Intermediate FATIGUE Verified 11/14/23 16:34 clonidine AdvReac Intermediate HEADACHES Verified 11/14/23 16:34 varenicline [From Chantix] AdvReac Intermediate JITTERY/SHA Verified 11/14/23 16:34 [facility] Home Medications Medication Instructions Recorded Confirmed Type ezetimibe 10 mg tablet 10 mg PO HS 07/29/21 11/14/23 History atorvastatin 40 mg tablet 40 mg PO QPM #90 tabs 09/01/22 11/14/23 Rx escitalopram oxalate 20 mg tablet 20 mg PO QPM #90 tabs 06/09/23 11/14/23 Rx levothyroxine 125 mcg tablet 125 mcg PO QAM #30 tabs 08/21/23 11/14/23 Rx omeprazole 40 mg capsule,delayed 40 mg PO BID #60 caps 08/21/23 11/14/23 Rx release albuterol sulfate 90 mcg/actuation 1 puff inhalation Q4 PRN sob 10/17/23 11/14/23 History aerosol inhaler loperamide 2 mg capsule 2 mg PO Q2H PRN loose stool #30 10/20/23 11/14/23 Rx caps phenobarbital 30 mg tablet 30 mg PO Q24H #1 tab 10/20/23 11/14/23 Rx folic acid 1 mg tablet 1 mg PO QAM 11/14/23 11/14/23 History furosemide 40 mg tablet 40 mg PO QAM 11/14/23 11/14/23 History valsartan 320 mg tablet 320 mg PO QAM 11/14/23 11/14/23 History Past Med/Surg History Problem List (Updated 11/14/23 @ 18:59 by Ranulfo Doherty DO) EARLINE (acute kidney injury) (Acute) Noncompliance with medication regimen 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 Acute kidney injury Hematochezia Hypokalemia Acute pancreatitis Sepsis Alcohol withdrawal Diarrhea (Acute) Abnormal CT of the head (Acute) Weakness (Acute) Hypomagnesemia (Acute) Anemia (Acute) Acute renal failure (ARF) (Acute) Hypomagnesemia Anemia Elevated LFTs Hyperlipidemia Hypertension Acute alcoholic hepatitis (Acute) Benign localized prostatic hyperplasia with lower urinary tract symptoms (LUTS) Prediabetes Presumed- Hgb A1C 6.3 on 10/12/22 Encounter for pre-operative examination Renal insufficiency Dyspnea Left rotator cuff tear Spermatocele Abnormal CT lung screening Coronary artery calcification seen on CAT scan chest CT 03/2020 negative stress test 06/2021 Radial head fracture, closed Alcohol abuse Left-sided chest pain (Acute) Hypothyroidism (Chronic) Current smoker Adjustment disorder with depressed mood (Acute) Allergic rhinitis (Acute) Barretts esophagus (Acute) Chronic cough (Acute) Colon polyps (Acute) Hiatal hernia (Acute) Inhibited sexual excitement (Acute) Obstructive sleep apnea (Acute) no device Periodic limb movements of sleep (Acute) Small airways disease (Acute) prn inhaler for this > rare res inh use Asthma INHALER DAILY GERD (gastroesophageal reflux disease) (Chronic) Hyperlipidemia (Chronic) Hypertension (Chronic) Medical History (Updated 11/14/23 @ 18:59 by Ranulfo Doherty DO) UTI (urinary tract infection) Thrombocytopenia Acute dehydration Anxiety Hypothyroidism GERD (gastroesophageal reflux disease) Surgical History S/P wrist surgery R WRIST REPAIR OF TORN TENDON Hx of vasectomy History of colonoscopy History of esophagogastroduodenoscopy (EGD) History of appendectomy History of tooth extraction WISDOM TEETH History of tonsillectomy S/P LASIK surgery of both eyes History of lumbar spinal fusion Family History Father Alcohol abuse COPD (chronic obstructive pulmonary disease) Hypertension Reported family history of early sudden deaths Mother Hypertension Hyperlipidemia Brother Hypertension Sister Graves' disease Social History Smoking Status: Current every day smoker Tobacco Type: Cigarettes Cigarettes Per Day: 1 ppd; Second Hand Exposure: No; Do You Dip or Chew Tobacco: No; Tobacco Cessation Education Requested by Patient: No Hx Alcohol Use: Yes Alcohol type: hard liquor Hx Substance Use: No Preferred Language: Greenlandic Communication Ability: Impaired Visual Impairment: Limited Hearing Ability: Normal Landscape Management Technician Required: No Beliefs That Will Affect Care: None marital status: Current Living Situation: Significant Other Current Living Situation Comment: LIVES WITH GIRLFRIEND current occupational status: employed current occupation: [employer] Other Information That Helps Us Care for You: No Feels Safe at Home: Yes Safety Concerns: Feels Safe At This Time Childhood Exposure to Second-Hand Smoke: No caffeine: Yes Dental Care, Regularly: Yes Physical Activity Frequency: Does not Exercise Seatbelt Use: always Sunscreen Use: No Assistive Devices: Glasses Review of Systems Review of Systems: See HPI above Physical Exam Physical Exam: General: Lethargic; disheveled; non-toxic appearing; cooperative; SpO2 99% on RA HEENT: Superficial abrasions on the posterior scalp and the bridge of the nose; no scleral icterus; PERRLA; moist mucus membrane; vision and hearing intact Neck: supple; no lymphadenopathy; trachea midline Skin: warm, dry without signs of tenting; no cyanosis; no rashes, bruising, lesions, or erythema noted CV: chest wall NTP; RRR; S1/S2 normal; no murmurs/rubs/gallops; pulses intact and symmetric at radial, DP, and PT Lungs: no acute respiratory distress; symmetrical chest wall expansion; clear breath sounds across all lung kent w/o adventitious sounds; no wheezing ABD: Soft, NTP; BS present; no rebound/guarding; no distention MSK: Right shoulder is NTP, however he endorses pain with passive ROM; no tics or fasciculations; no edema noted in the LEs b/l, nonerythematous Neuro: Patient is alert and oriented to name, , and location; not oriented to month; normal mood and affect; fluent speech; no focal deficits; sensation grossly intact in the LEs b/l Results & Data Results & Data Vital Signs (Past 12 Hours) Vital Signs Temp Pulse Pulse Resp BP BP Pulse Ox 11/14/23 15:52 88 11/14/23 15:51 88 22 108/67 99 11/14/23 14:51 95 H 14 98 11/14/23 13:40 36.2 C L 119 H 18 71/49 L 98 O2 Del Method 11/14/23 15:52 11/14/23 15:51 Room Air 11/14/23 14:51 Room Air 11/14/23 13:40 Room Air Laboratory Results Abnormal lab results 11/14/23 Range/Units 14:10 RBC 2.68 L (4.70-6.10) M/uL Hgb 8.8 L (14.0-18.0) g/dl Hct 26.1 L (42.0-52.0) % RDW Std Deviation 59.9 H (36.4-46.3) fL RDW Coeff of Joshua 17.0 H (11.5-14.5) % Neut # (Auto) 7.02 H (1.40-6.50) K/uL Lymph # (Auto) 0.52 L (1.20-3.40) K/uL [place] # (Auto) 1.12 H (0.11-0.59) K/uL Immature Gran # (Auto) 0.23 H (0.01-0.20) K/uL Sodium 132 L (136-145) mmol/L Potassium 2.7 L (3.5-5.1) mmol/L Chloride 89 L (98-107) mmol/L Anion Gap 22 H (3-11) BUN 58 H (6-23) mg/dl Creatinine 5.01 H* (0.6-1.4) mg/dl Glucose 128 H (70-99(Fasting)) mg/dl Lactate 2.3 H* (0.4-2.0) mmol/L Magnesium 1.4 L (1.7-2.4) mg/dl Total Bilirubin 1.7 H (0.2-1.0) mg/dl Direct Bilirubin 0.8 H (0-0.2) mg/dl AST 101 H (13-39) U/L Alkaline Phosphatase 183 H (34-104) U/L Procalcitonin 3.85 H (0-0.5) ng/ml Diagnostic Findings Chest X-Ray 11/14/23 14:02 XR chest 1V portable HISTORY: Sepsis COMPARISON: Chest 10/17/2023. FINDINGS: There are low lung volumes with mild elevation of the right hemidiaphragm. This remains unchanged the lungs are clear. The heart is normal in size. No pleural effusions. No pneumothorax. No acute fractures identified. IMPRESSION: No significant change compared to the prior study. No acute process. ACT 112: Negative or not required by law. Electronically signed by: Low Cuello M.D. 11/14/2023 2:[address] 11/14/23 14:06 CT head/brain wo con CLINICAL HISTORY: 58 years-old Male with fall. Acute head trauma status post fall TECHNIQUE: Multiple axial CT images of the head were obtained without contrast. A dose lowering technique was utilized adhering to the principles of ALARA. CT DOSE: 625.8 mGy.cm COMPARISON: 10/17/2023. FINDINGS: No acute intracranial hemorrhage, midline shift, intracranial mass, hydrocephalus, territorial ischemia or abnormal extra-axial collection. Involutional changes with chronic microvascular ischemic disease. Unchanged 1.6 cm hypodense focus of the central gabriela. The calvarium is intact. The paranasal sinuses, mastoid air cells, and middle ear cavities are clear. IMPRESSION: 1. No acute intracranial abnormality or calvarial fracture. 2. Chronic findings as above. ACT 112: Negative or not required by law. The above report was generated using voice recognition software. It may contain grammatical, syntax or spelling errors. Electronically signed by: Smuit Richey M.D. 11/14/2023 3:36 PM ECG Additional Comments: ECG revealed NSR at 99 bpm; QTc 477 Code Status & VTE Plan Code Status Full code VTE Prophylaxis Plan VTE Prophylaxis will be ordered: Yes Supervising Physician Co-Signing Physician Notes I personally saw and examined the patient. I independently reviewed the labs, EKG, imaging, problem list, medication list, past medical history and family history. I verified all mccauley points and agree with Low Purcell PA-C with the following exceptions and/or additions: 58 year old male with alcohol abuse presents to the ER with generalized weakness, fatigue, decline, confusion, recurrent falls. Prior history of alcohol withdrawal. History of unreliable history taking with regards to his drinking although he reports his last drink was 2 days ago. O/E Alert & orientated to self only, HS increased rate, regular rhythm, no murmurs, Chest CTAB, Abdo SNT, no CVA tenderness A/P EARLINE - suspect pre-renal as per prior admission with diarrhea. LR ordered with repeat labs Hypokalemia/hypomagnesemia - secondary to diarrhea and poor oral intake, replace and repeat level in AM Alcohol withdrawal - mild agitation on exam and unreliable in terms of last drink. Prior alcohol withdrawal seizure therefore will start on phenobarbital but at a lower (<10mg/kg) loading dose of 260mg IV. Continue thiamine and folic acid Acute pancreatitis - no abdominal pain but imaging changes and elevated lipase. Additional LR 1L bolus now then 250ml/hr overnight PG Care Time/CCT Total # of Minutes Spent Total Time Spent with Patient: Total time spent is greater than 50% in coordination of care (as documented) at patient's floor/unit and/or counseling patient: Coding [place] [address] INT INP/OBS CARE 3/75MIN Patient Type Established Medical Decision Making High Complexity Diagnoses Acute renal failure (ARF) N17.9 Acute renal failure type: unspecified Alcohol abuse F10.10 Alcohol withdrawal syndrome without complication F10.930 Complication of substance-induced condition: uncomplicated Hypokalemia E87.6 Hypomagnesemia E83.42 Diarrhea R19.7 Diarrhea type: unspecified type Anemia D64.9 Anemia type: unspecified type Fall W19.XXXA Noncompliance with medication regimen Z91.148 Hypothyroidism E03.9 Hypertension I10 Acute pancreatitis K85.90 (1) Acute renal failure (ARF) Acute renal failure type: unspecified Qualified Code(s): N17.9 - Acute kidney failure, unspecified (3) Alcohol withdrawal Complication of substance-induced condition: uncomplicated Qualified Code(s): F10.930 - Alcohol use, unspecified with withdrawal, uncomplicated (6) Diarrhea Diarrhea type: unspecified type Qualified Code(s): R19.7 - Diarrhea, unspecified (7) Anemia Anemia type: unspecified type Qualified Code(s): D64.9 - Anemia, unspecified
[2023-11-14] MEDS: LACTATED RINGER'S 1,000 ML IV SCH (17:30)
[2023-11-14] MEDS ORDERED: PHENobarbital PO Alcohol Withdrawal PO STA (18:22)
[2023-11-14] MEDS ORDERED: PHENobarbital sodium 65 MG/ML VIAL IV PRN ×2 (18:37→20:22)
[2023-11-14] MEDS: PHENobarbital sodium 65 MG/ML VIAL IV STA (18:37)
--- NOTE | 2023-11-14 18:58 | CT Scan Report ---
ABDOMEN AND PELVIS CT WITHOUT CONTRAST CT DOSE: 1490.76 mGy.cm HISTORY: ARF; alc withdrawal; elevated lipase TECHNIQUE: Multiaxial CT images of the abdomen and pelvis were performed without contrast. A dose lo wering technique was utilized adhering to the principles of ALARA. COMPARISON STUDY: Abdomen and pelvis CT 10/17/2023. The lung bases are clear. No pneumoperitoneum. No p neumatosis. L5-S1 posterior decompression and fusion with pedicle screws and rods. Severe disc space narrowing within the mid to lower lumbar spine. 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 Moderate coronary artery calcifications are noted. Small fat-containin g bilateral inguinal hernias. Severe hepatic steatosis again noted. The unenhanced gallbladder, splee n, and adrenal glands unremarkable. No renal or ureteral stones. No hydronephrosis. There is mild pepe ateral perinephric edema, unchanged. Mild thickening of the duodenum is likely reactive. There is per ipancreatic edema/inflammatory change which has progressed in the interval. This is consistent with a cute pancreatitis. Calcified plaque within the normal caliber abdominal aorta. No retroperitoneal or pelvic lymphadenopathy. The bladder is unremarkable. Suboptimal evaluation for bowel pathology due to the lack of intravenous and oral contrast. There are few sigmoid diverticula. No evidence for acute diverticulitis. No dilated loops of bowel to suggest an obstruction. FINDINGS: 1. Interval progression of the acute pancreatitis. 2. Severe hepatic steatosis, unchanged. 3. No evidence for a bowel obstruction. 4. Additional findings as described above. IMPRESSION: No significant abnormality identified within the abdomen or pelvis. ACT 112: Negative or not required by law. Electronically signed by: Low Cuello M.D. 11/14/2023 6:55 PM
[2023-11-14 19:00] LABS: Adenovirus F 40/41 PCR Not Detected (NotDetected); Astrovirus PCR Not Detected (NotDetected); Campylobacter PCR Not Detected (NotDetected); Cryptosporidium PCR Not Detected (NotDetected); Cyclospora cayetanensis PCR Not Detected (NotDetected); Entamoeba histolytica PCR Not Detected (NotDetected); Enteroaggregative E.coli(EAEC) Not Detected (NotDetected); Enteropathogenic E.coli (EPEC) Not Detected (NotDetected); Enterotoxigenic E.coli (ETEC) Not Detected (NotDetected); Giardia lamblia PCR Not Detected (NotDetected); Norovirus GI/GII PCR Not Detected (NotDetected); Plesiomonas shigelloides PCR Not Detected (NotDetected); Rotavirus A PCR Not Detected (NotDetected); Salmonella PCR Not Detected (NotDetected); Sapovirus PCR Not Detected (NotDetected); Shiga-like Toxin E.coli (STEC) Not Detected (NotDetected); Shigella/Enteroinvasive E.coli Not Detected (NotDetected); Vibrio cholerae PCR Not Detected (NotDetected); Vibrio species PCR Not Detected (NotDetected); Yersinia enterocolitica PCR Not Detected (NotDetected)
[2023-11-14 19:01] LABS: Hematocrit (blood only) 22.8 % (42.0-52.0); Hemoglobin 7.5 g/dl (14.0-18.0)
[2023-11-14 19:22] LABS: Calcium 8.4 mg/dl (8.6-10.3); Creatinine Clr Calc Pharmacy 18.8 ml/min; Est GFR (African American) 16.1 ml/min; Est GFR (Non-African American) 13.9 ml/min; Potassium 2.9 mmol/L (3.5-5.1)
--- NOTE | 2023-11-14 19:28 | XRay Report ---
XR shoulder RT min 2V routine CLINICAL HISTORY: Fall; 10 right shoulder pain COMPARISON STUDY: None. FINDINGS: No fracture or dislocation within the right shoulder. The right clavicle is intact. Mild de generative changes within the right shoulder. IMPRESSION: No fracture or dislocation within the right shoulder. ACT 112: Negative or not required by law. Electronically signed by: Low Cuello M.D. 11/14/2023 7:27 PM
[2023-11-14 19:37] LABS: Thyroid Stimulating Hormone 2.062 uIu/ml (0.300-4.500)
[2023-11-14] MEDS: MAGNESIUM SULFATE / D5W 1 GM/100 ML BAG IV ONE (21:04)
[2023-11-14] MEDS: PANTOprazole 40 MG TAB PO SCH (21:05)
[2023-11-14] MEDS: ESCITALOPRAM OXALATE 20 MG TAB PO SCH (21:05)
[2023-11-14] MEDS: ATORVASTATIN 40 MG TAB PO SCH (21:05)
[2023-11-14] MEDS: EZETIMIBE 10 MG TAB PO SCH (21:05)
[2023-11-14] MEDS: POTASSIUM CHLORIDE CRTAB 20 MEQ TABCR PO STA (21:05)
[2023-11-14] MEDS: LOPERAMIDE HCL 2 MG CAP PO PRN (21:05)
[2023-11-14] MEDS: ONDANSETRON INJ 2 MG/ML 2 ML VIAL IV PRN (21:06)
[2023-11-14 23:03] LABS: Hemoglobin 7.5 g/dl (14.0-18.0)
[2023-11-14 23:20] LABS: BUN Creatinine Ratio 12.6 (10-20); Calcium 8.4 mg/dl (8.6-10.3); Est GFR (African American) 17.2 ml/min; Est GFR (Non-African American) 14.8 ml/min; Potassium 3.1 mmol/L (3.5-5.1)
[2023-11-15 00:29] LABS: Amphetamines+Metham, Urine Neg (Neg); Barbiturates, Urine Pos (Neg); Benzodiazepine, Urine Neg (Neg); Cocaine, Urine Neg (Neg); Fentanyl, Urine Neg (Neg); MDMA (Ecstacy), Urine Neg (Neg); Marijuana, Urine Neg (Neg); Methadone, Urine Neg (Neg); Opiate, Urine Neg (Neg); Phencyclidine, Urine Neg (Neg)
[2023-11-15 01:12] LABS: Appearance Urine Clear (Clear); Bacteria Urine Automated None Seen (None Seen); Bilirubin Urine Negative (Negative); Blood Urine Trace (Negative); Color Urine Yellow; Epithelial Cell Urine Auto 0-2 /hpf (0-2); Glucose Urine UA 1+ (Negative); Granular Casts Urine Present /lpf (None Prsent); Hyaline Casts Urine Present /lpf (None Presnt); Ketones Urine 1+ (Negative); Leukocyte Esterase Urine Negative (Negative); Nitrite Urine Negative (Negative); Protein Urine 1+ (Negative); RBC Urine Automated 0-2 /hpf (0-2); Specific Gravity Urine 1.015 (1.000-1.030); Urobilinogen Urine Negative (Negative); WBC Urine Automated 0-5 /hpf (0-5); pH Urine 5.5 (4.5-7.5)
[2023-11-15] MEDS: LEVOTHYROXINE SODIUM 125 MCG TABLET PO SCH (05:47)
[2023-11-15 06:58] LABS: Basophils # (auto) 0.01 K/uL (0.00-0.20); Basophils % (auto) 0.1 %; Eosinophils % (auto) 1.3 %; Hematocrit (blood only) 22.1 % (42.0-52.0); Hemoglobin 7.4 g/dl (14.0-18.0); Immature Granulocytes % (auto) 1.3 %; Lymphocytes # (auto) 0.67 K/uL (1.20-3.40); Lymphocytes % (auto) 8.4 %; Mean Corpuscular Hemoglobin 32.9 pg (25.0-34.0); Mean Corpuscular Hgb Conc 33.5 g/dL (32.0-36.0); Mean Corpuscular Volume 98.2 fL (80.0-100.0); Mean Platelet Volume 10.5 fL (9.4-12.4); Monocytes # (auto) 0.93 K/uL (0.11-0.59); Monocytes % (auto) 11.7 %; Neutrophils # (auto) 6.14 K/uL (1.40-6.50); Neutrophils % (auto) 77.2 %; Nucleated RBC # (auto) 0.03 K/uL (0.00-0.12); Nucleated RBC % (auto) 0.4 %; Platelet Count 167 K/uL (130-400); RDW Standard Deviation 60.7 fL (36.4-46.3); Red Blood Count 2.25 M/uL (4.70-6.10); White Blood Count 7.95 K/ul (4.8-10.8)
[2023-11-15 07:26] LABS: Albumin Level 3.2 gm/dl (3.4-5.0); BUN Creatinine Ratio 13.4 (10-20); Bilirubin,Total 1.2 mg/dl (0.2-1.0); Calcium 8.2 mg/dl (8.6-10.3); Creatinine Clr Calc Pharmacy 20.8 ml/min; Est GFR (African American) 20.4 ml/min; Est GFR (Non-African American) 17.6 ml/min; Globulin 3.1 gm/dl (2.5-4.0); Potassium 3.4 mmol/L (3.5-5.1); Total Protein 6.3 gm/dl (6.0-8.3)
--- NOTE | 2023-11-15 07:35 | Hospitalist Progress Note ---
Date of Service November 15, 2023 Assessment & Plan (1) EARLINE (acute kidney injury): (2) Acute pancreatitis: (3) Central pontine myelinolysis: (4) Fall: (5) Alcohol withdrawal: (6) Hypomagnesemia: (7) Hyperlipidemia: (8) Prediabetes: (9) Right shoulder pain: Plan Acute renal failure (ARF) -Likely combination of dehydration/prerenal EARLINE, ongoing diarrhea/GI losses, and alcohol abuse -On arrival: BUN 58, creatinine 5.01 (baseline 1.26), EGFR 17.6, Lactate 2.3 -Current: BUN 48, creatinine 3.57 EGFR 11.7, lactate 1.1 -Urinalysis: -1+ protein, 1+ glucose, 1+ ketones, 1+ blood -Hyaline casts (suggestive of dehydration/pre-renal EARLINE) and granular casts (suggestive of acute tubular necrosis) present -Lactated ringer at 250 mL/hr x 2 -Avoid all nephrotoxic agents -Trend CBC, CMP, mag Alcohol Use Disorder - chronic -History of admissions for alcohol withdrawal; he denies alcohol withdrawal seizures -Patient contemplating quitting alcohol -Last drink on 11/12/23, Alcohol level WNL on arrival -Last AWSS at 1200 was 7 -Urine tox screen pending, negative for opiates, methadone, fentanyl, PCP, amphetamines, MDMA, benzodiazepines, cocaine, THC - Fall precautions - Seizure precautions - AWSS at risk protocol - RASS q4h - Communication order to notify provider for RASS >0 or AWSS >8 - Case management consulted as patient is open to discussing alcohol cessation/rehab - IVF resuscitation (as above) - Thiamine and folate supplementation daily Alcohol withdrawal - acute -Discontinue IV phenobarbital -AWSS Ativan, monitor and reevaluate need for phenobarbital for 7 PM Right shoulder pain - acute -Endorses 10/10 right shoulder pain following fall(s) -Shoulder XR on 11/14/23: No fracture or dislocation within the right shoulder. The right clavicle is intact. Mild degenerative changes within the right shoulder. IMPRESSION: No fracture or dislocation within the right shoulder. -Ordered Voltaren 1% 2g BID Acute Pancreatitis -Patient does not endorse abdominal pain -Lipase 1778 on arrival, currently 444 -Concerning for acute pancreatitis, renal failure (creatinine 3.57, BUN 48) -Identified on CT abd/pelvis 11/13: "Interval progression of the acute pancreatitis" -Continue Lactated Ringer, 200 ml/hr Severe Hepatic Steatosis -Identified on CT abd/pelvis 11/13: "Severe hepatic steatosis, unchanged." -Total bilirubin: 1.2, direct 0.8, AST 89, ALT 27, alk phos 155, albumin 2. -Continue to trend Hyponatremia -History of central pontine myelinolysis, high risk for recurrance due to AUD, liver disease, and hypokalemia -132 on arrival, currently 133 -Trend BMP Hypokalemia -acute -K 2.7 on arrival, potassium 40mEq p.o. given -Currently 3.4 -Trend BMP Hypomagnesemia - resolved -Magnesium 1.4 on arrival, magnesium sulfate 1 g x 3 given -Suspect secondary to diarrhea -Currently 2.0 -Trend BMP Diarrhea -Patient denies blood in stool and melena -PCR stool and C. difficile negative Abnormal EKG -Small, but real appearing Q waves present in inferior leads. Min -Troponin normal -Clinical significance undetermined -Consider echo if patient develops any symptoms Normocytic Anemia -Hgb 8.8 on arrival, now 7.4. May be secondary to IV fluids, volume contraction, and/or phlebotomy -Clinically, no signs of active bleeding on physical exam - In the setting of acute falls/trauma with unclear history, will continue to trend H&H q4h x 2 -Typed and screened completed -Patient declined blood transfusion (11/14/23) Hypothyroidism - Levothyroxine 125 Mcg -TSH 2.062 -Continue levothyroxine Hypertension - Valsartan 230 mg -Continue valsartan 230 mg PO QAM FEN: low fat diet Code status: full code DVT ppx: SCDs Held home meds: N/A Consults: N/A consider psych consult Case management: Consulted as patient is open to discussing alcohol cessation/rehab Dispo: telemetry Admission and Anticipated Discharge Date Admission Date: November 14, 2023 Supervising Physician Co-Signing Physician Notes I personally examined the patient and verified all mccauley points of history and exam, discussed case, and agree with decision making with Dr Gonzales and Yuliana Anderson MS4 feeling better than earlier today. No abdominal pain. Vitals noted, in general he is awake and alert pleasant no distress. HEENT normocephalic atraumatic mucous membranes moist. Breathing unlabored no accessory muscle use good effort. Skin shows no rashes no pallor or icterus. Neuro without focal deficits. Acute renal failureseems to be predominantly prerenal. To be seen how much might also be ATN, but fortunately at least his creatinine is improved markedly with IV fluids. Continue fluids, follow. Alcohol abuse/withdrawalthiamine, folate, seems to be a bit sedated from barbiturates earlier todaychanged to symptom triggered benzodiazepine regimen. Follow closely. Discussed alcohol cessation, discussed in the context of possibly self-medicating for anxiety, he endorses this could be the case. Elevated lipase/pancreatitis type findings on CThas no abdominal pain to palpation and no complaint of abdominal painsuspect more chronic pancreatitis based on lab and imaging but no symptoms. Follow closely. DVT proph - heparin SQ Subjective Alexei Adams is a 58 year old male with a PMHx of AUD, osmotic demyelination syndrome (central pontine myelinolysis), prediabetes, asthma, hypothyroidism, HTN, HLD, GERD, Hunter's esophagus, SUZI, allergic rhinitis, anxiety who was admitted on 11/14/23 for concerns of a fall and alcohol withdrawal. Limited history secondary to patient drowsiness, information mostly obtained from chart review Fall -Patient reports falling and striking his head and right shoulder on 11/14/23 -He is unsure if he also fell on 11/13/23 Alcohol Use Disorder with active withdrawal -Patient states that he experienced withdrawal symptoms 1 month ago when he tried to quit drinking -Stress management: cutting grass. Played baseball and football when younger. -He returned to drinking since that time. He states that he doesn't have a reaso n for starting drinking again. He stopped drinking 2 days prior to admission because he ran out of alcohol. -He had been drinking "4 drinks of rum" per day -He denies a history of alcohol withdrawal seizures. -No change in dietary habits, but has been drinking less fluids. -He denies other recreational drug use. -Patient denies abdominal pain Right Shoulder Pain -Patient reports he struck his head as well as his right shoulder during the fall. -Patient endorses 10/10 constant right shoulder pain, worse with movement -Radiation: Down his hand; no radiation to the scapula. No recent changes in medication, but did not take his home meds for 2 days prior to admission. Primary Care Provider: N/A Review of Systems Review of Systems: See HPI for pertinent positives & negatives. A total of 10 systems reviewed and were otherwise negative. Physical Exam Physical Exam: Constitutional: Drowsy, falling asleep during conversation, no acute distress HEENT: NCAT, no conjunctival injection CV: Regular rhythm, no murmur appreciated, extremities well-perfused, no LE edema Resp: CTABL, no wheezes/rales/rhonchi appreciated,no increased work of breathing GI: soft, nondistended, nontender, BS normoactive MSK: no gross deformities appreciated. Skin: warm, dry, no rash appreciated, laceration present scalp and on forehead between eyebrows. Neuro: Drowsy, falling asleep during conversation, oriented to person and place, no focal neurologic deficit appreciated. Tremor noted in right hand Results & Data Results & Data Vital Signs (Past 12 Hours) Vital Signs Temp Pulse Pulse Resp BP Pulse Ox O2 Del Method 11/15/23 02:28 97.9 F 96 H 24 106/72 92 Room Air 11/14/23 23:47 92 H 11/14/23 23:40 97.7 F 89 20 99/64 L 94 Room Air 11/14/23 22:59 Room Air 11/14/23 20:15 86 11/14/23 19:55 Room Air 11/14/23 19:55 98.4 F 88 20 119/76 98 Room Air Laboratory Results Laboratory Results - last 24 hr 11/14/23 11/14/23 11/14/23 14:10 15:50 16:15 WBC 8.93 RBC 2.68 L Hgb 8.8 L Hct 26.1 L MCV 97.4 MCH 32.8 MCHC 33.7 RDW Std Deviation 59.9 H RDW Coeff of Joshua 17.0 H Plt Count 196 MPV 10.9 Immature Gran % (Auto) 2.6 Neut % (Auto) 78.7 Lymph % (Auto) 5.8 [place] % (Auto) 12.5 Eos % (Auto) 0.2 Baso % (Auto) 0.2 Neut # (Auto) 7.02 H Lymph # (Auto) 0.52 L [place] # (Auto) 1.12 H Eos # (Auto) 0.02 Baso # (Auto) 0.02 Immature Gran # (Auto) 0.23 H Absolute Nucleated RBC 0.08 Nucleated RBC % (auto) 0.9 RBC Morphology Sodium 132 L Potassium 2.7 L Chloride 89 L Carbon Dioxide 21 Anion Gap 22 H BUN 58 H Creatinine 5.01 H* Est Cr Clr Drug Dosing 16.4 Est GFR ( Amer) 13.5 Est GFR (Non-Af Amer) 11.7 BUN/Creatinine Ratio 11.6 Glucose 128 H Lactate 2.3 H* 1.1 Calcium 9.4 Magnesium 1.4 L Total Bilirubin 1.7 H Direct Bilirubin 0.8 H AST 101 H ALT 33 Alkaline Phosphatase 183 H Lactate Dehydrogenase Troponin I High Sens 19.3 Total Protein 7.3 Albumin 3.9 Globulin Albumin/Globulin Ratio Lipase 1778 H Procalcitonin 3.85 H TSH Urine Color Urine Appearance Urine pH Ur Specific [place] Urine Protein Urine Glucose (UA) Urine Ketones Urine Blood Urine Nitrite Urine Bilirubin Urine Urobilinogen Ur Leukocyte Esterase Urine WBC (Auto) Urine RBC (Auto) U Hyaline Cast (Auto) U Epithel Cells (Auto) Urine Bacteria (Auto) Hyaline Casts Granular Casts Stl C. cayetanensis PCR Not Detected Stool Rotavirus A PCR Not Detected Stl Adenov F 40/41 PCR Not Detected Stool Astrovirus (PCR) Not Detected Stool Campylobacter PCR Not Detected Stl C. diff Tox B Gene Negative Cdiff Gene Stool Cryptosporidium PCR Not Detected Stl E.coli Shiga Tox PCR Not Detected Stl Enterotoxigenic E PCR Not Detected Stool EPEC (PCR) Not Detected Stool EAEC (PCR) Not Detected Stl E. histolytica PCR Not Detected Stool Giardia Lamblia PCR Not Detected Stool Salmonella PCR Not Detected Stool Sapovirus (PCR) Not Detected Stl P. shigelloides PCR Not Detected Stl Shigella/EIEC PCR Not Detected St Y.enterocolitica PCR Not Detected Stool Vibrio (PCR) Not Detected Stl Vibrio cholerae PCR Not Detected Stl Norovirus GI/GII PCR Not Detected Urine Butalbital Urine Opiates Screen Ur Methadone, Qual Urine Fentanyl Screen Urine Barbiturates Ur Phencyclidine (PCP) U Amphetamin/Meth Scrn MDMA (Ecstasy) Screen Urine Amobarbital Urine Pentobarbital Urine Phenobarbital Urine Secobarbital U Benzodiazepines Scrn Ur Cocaine Metabolite U Marijuana (THC) Screen Drug Screen Comment Ethyl Alcohol mg/dL < 10.0 Blood Type Antibody Screen 11/14/23 11/14/23 11/14/23 18:27 22:22 Unknown WBC RBC Hgb 7.5 L 7.5 L Hct 22.8 L 22.0 L MCV MCH MCHC RDW Std Deviation RDW Coeff of Joshua Plt Count MPV Immature Gran % (Auto) Neut % (Auto) Lymph % (Auto) [place] % (Auto) Eos % (Auto) Baso % (Auto) Neut # (Auto) Lymph # (Auto) [place] # (Auto) Eos # (Auto) Baso # (Auto) Immature Gran # (Auto) Absolute Nucleated RBC Nucleated RBC % (auto) RBC Morphology Sodium 133 L 133 L Potassium 2.9 L 3.1 L Chloride 97 L 98 Carbon Dioxide 20 L 22 Anion Gap 16 H 13 H BUN 52 H 52 H Creatinine 4.35 H D 4.12 H Est Cr Clr Drug Dosing 18.8 18.0 Est GFR ( Amer) 16.1 17.2 Est GFR (Non-Af Amer) 13.9 14.8 BUN/Creatinine Ratio 12.0 12.6 Glucose 115 H 122 H Lactate Calcium 8.4 L 8.4 L Magnesium Total Bilirubin Direct Bilirubin AST ALT Alkaline Phosphatase Lactate Dehydrogenase 184 Troponin I High Sens Total Protein Albumin Globulin Albumin/Globulin Ratio Lipase Procalcitonin TSH 2.062 Urine Color Yellow Urine Appearance Clear Urine pH 5.5 Ur Specific [place] 1.015 Urine Protein 1+ H Urine Glucose (UA) 1+ H Urine Ketones 1+ H Urine Blood Trace H Urine Nitrite Negative Urine Bilirubin Negative Urine Urobilinogen Negative Ur Leukocyte Esterase Negative Urine WBC (Auto) 0-5 Urine RBC (Auto) 0-2 U Hyaline Cast (Auto) 6-10 H U Epithel Cells (Auto) 0-2 Urine Bacteria (Auto) None Seen Hyaline Casts Present A Granular Casts Present A Stl C. cayetanensis PCR Stool Rotavirus A PCR Stl Adenov F 40/41 PCR Stool Astrovirus (PCR) Stool Campylobacter PCR Stl C. diff Tox B Gene Stool Cryptosporidium PCR Stl E.coli Shiga Tox PCR Stl Enterotoxigenic E PCR Stool EPEC (PCR) Stool EAEC (PCR) Stl E. histolytica PCR Stool Giardia Lamblia PCR Stool Salmonella PCR Stool Sapovirus (PCR) Stl P. shigelloides PCR Stl Shigella/EIEC PCR St Y.enterocolitica PCR Stool Vibrio (PCR) Stl Vibrio cholerae PCR Stl Norovirus GI/GII PCR Urine Butalbital Pending Urine Opiates Screen Neg Ur Methadone, Qual Neg Urine Fentanyl Screen Neg Urine Barbiturates Pos H Ur Phencyclidine (PCP) Neg U Amphetamin/Meth Scrn Neg MDMA (Ecstasy) Screen Neg Urine Amobarbital Pending Urine Pentobarbital Pending Urine Phenobarbital Pending Urine Secobarbital Pending U Benzodiazepines Scrn Neg Ur Cocaine Metabolite Neg U Marijuana (THC) Screen Neg Drug Screen Comment Pending Ethyl Alcohol mg/dL Blood Type O Positive Antibody Screen NEGATIVE 11/15/23 06:39 WBC 7.95 RBC 2.25 L Hgb 7.4 L Hct 22.1 L MCV 98.2 MCH 32.9 MCHC 33.5 RDW Std Deviation 60.7 H RDW Coeff of Joshua 17.0 H Plt Count 167 MPV 10.5 Immature Gran % (Auto) 1.3 Neut % (Auto) 77.2 Lymph % (Auto) 8.4 [place] % (Auto) 11.7 Eos % (Auto) 1.3 Baso % (Auto) 0.1 Neut # (Auto) 6.14 Lymph # (Auto) 0.67 L [place] # (Auto) 0.93 H Eos # (Auto) 0.10 Baso # (Auto) 0.01 Immature Gran # (Auto) 0.10 Absolute Nucleated RBC 0.03 Nucleated RBC % (auto) 0.4 RBC Morphology Unremarkable Sodium 133 L Potassium 3.4 L Chloride 97 L Carbon Dioxide 24 Anion Gap 12 H BUN 48 H Creatinine 3.57 H D Est Cr Clr Drug Dosing 20.8 Est GFR ( Amer) 20.4 Est GFR (Non-Af Amer) 17.6 BUN/Creatinine Ratio 13.4 Glucose 129 H Lactate Calcium 8.2 L Magnesium 2.0 Total Bilirubin 1.2 H Direct Bilirubin AST 89 H ALT 27 Alkaline Phosphatase 155 H Lactate Dehydrogenase Troponin I High Sens Total Protein 6.3 Albumin 3.2 L Globulin 3.1 Albumin/Globulin Ratio 1.0 Lipase 444 H Procalcitonin TSH Urine Color Urine Appearance Urine pH Ur Specific [place] Urine Protein Urine Glucose (UA) Urine Ketones Urine Blood Urine Nitrite Urine Bilirubin Urine Urobilinogen Ur Leukocyte Esterase Urine WBC (Auto) Urine RBC (Auto) U Hyaline Cast (Auto) U Epithel Cells (Auto) Urine Bacteria (Auto) Hyaline Casts Granular Casts Stl C. cayetanensis PCR Stool Rotavirus A PCR Stl Adenov F 40/41 PCR Stool Astrovirus (PCR) Stool Campylobacter PCR Stl C. diff Tox B Gene Stool Cryptosporidium PCR Stl E.coli Shiga Tox PCR Stl Enterotoxigenic E PCR Stool EPEC (PCR) Stool EAEC (PCR) Stl E. histolytica PCR Stool Giardia Lamblia PCR Stool Salmonella PCR Stool Sapovirus (PCR) Stl P. shigelloides PCR Stl Shigella/EIEC PCR St Y.enterocolitica PCR Stool Vibrio (PCR) Stl Vibrio cholerae PCR Stl Norovirus GI/GII PCR Urine Butalbital Urine Opiates Screen Ur Methadone, Qual Urine Fentanyl Screen Urine Barbiturates Ur Phencyclidine (PCP) U Amphetamin/Meth Scrn MDMA (Ecstasy) Screen Urine Amobarbital Urine Pentobarbital Urine Phenobarbital Urine Secobarbital U Benzodiazepines Scrn Ur Cocaine Metabolite U Marijuana (THC) Screen Drug Screen Comment Ethyl Alcohol mg/dL Blood Type Antibody Screen Diagnostic Findings ABDOMEN AND PELVIS CT WITHOUT CONTRAST HISTORY: ARF; alc withdrawal; elevated lipase FINDINGS: 1. Interval progression of the acute pancreatitis. 2. Severe hepatic steatosis, unchanged. 3. No evidence for a bowel obstruction. 4. Additional findings as described above. IMPRESSION: No significant abnormality identified within the abdomen or pelvis. XR chest 1V portable HISTORY: Sepsis FINDINGS: There are low lung volumes with mild elevation of the right hemidiaphragm. This remains unchanged the lungs are clear. The heart is normal in size. No pleural effusions. No pneumothorax. No acute fractures identified. IMPRESSION: No significant change compared to the prior study. No acute process. CT head/brain wo con CLINICAL HISTORY: 58 years-old Male with fall. Acute head trauma status post fall FINDINGS: No acute intracranial hemorrhage, midline shift, intracranial mass, hydrocephalus, territorial ischemia or abnormal extra-axial collection. Involutional changes with chronic microvascular ischemic disease. Unchanged 1.6 cm hypodense focus of the central gabriela. The calvarium is intact. The paranasal sinuses, mastoid air cells, and middle ear cavities are clear. IMPRESSION: 1. No acute intracranial abnormality or calvarial fracture. 2. Chronic findings as above. XR shoulder RT min 2V routine CLINICAL HISTORY: Fall; 10 right shoulder pain COMPARISON STUDY: None. FINDINGS: No fracture or dislocation within the right shoulder. The right clavicle is intact. Mild degenerative changes within the right shoulder. IMPRESSION: No fracture or dislocation within the right shoulder. Medications Administered Current Inpatient Medications Albuterol (Albuterol Hfa 8 Gm Inhaler) 1 puffs INH Q4 PRN PRN Reason: Shortness Of Breath Stop: 12/14/23 19:54 Atorvastatin Calcium (Atorvastatin 40 Mg Tab) 40 mg PO QPM NAEEM Stop: 12/14/23 20:59 Last Admin: 11/14/23 21:05 Dose: 40 mg Ezetimibe (Ezetimibe 10 Mg Tab) 10 mg PO HS NAEEM Stop: 12/14/23 20:59 Last Admin: 11/14/23 21:05 Dose: 10 mg Escitalopram Oxalate (Escitalopram Oxalate 20 Mg Tab) 20 mg PO QPM NAEEM Stop: 12/14/23 20:59 Last Admin: 11/14/23 21:05 Dose: 20 mg Folic Acid (Folic Acid 1 Mg Tab) 1 mg PO QAM NAEEM Stop: 12/15/23 08:59 Last Admin: 11/15/23 08:52 Dose: 1 mg Lactated Ringer's (Lr) 1,000 mls @ 200 mls/hr IV .Q5H NAEEM Stop: 12/15/23 07:44 Last Admin: 11/15/23 12:45 Dose: 200 mls/hr Levothyroxine Sodium (Levothyroxine Sodium 125 Mcg Tablet) 125 mcg PO DAILYBB [facility] Stop: 12/15/23 06:29 Last Admin: 11/15/23 05:47 Dose: 125 mcg Loperamide HCl (Loperamide Hcl 2 Mg Cap) 2 mg PO Q2H PRN PRN Reason: loose stool Stop: 12/14/23 19:54 Last Admin: 11/14/23 21:05 Dose: 2 mg Ondansetron HCl (Ondansetron Inj 2 Mg/Ml 2 Ml Vial) 4 mg IV Q6H PRN PRN Reason: Nausea Stop: 12/14/23 19:54 Last Admin: 11/14/23 21:06 Dose: 4 mg Pantoprazole Sodium (Pantoprazole 40 Mg Tab) 40 mg PO BID NAEEM Stop: 12/14/23 20:59 Last Admin: 11/15/23 08:52 Dose: 40 mg Phenobarbital (Phenobarbital 30 Mg Tab) 60 mg PO Q12H NAEEM Stop: 11/16/23 00:31 Last Admin: 11/15/23 12:51 Dose: 60 mg Phenobarbital (Phenobarbital 30 Mg Tab) 30 mg PO Q12H [facility] Stop: 11/17/23 00:31 Phenobarbital (Phenobarbital 30 Mg Tab) 30 mg PO Q24H [facility] Stop: 11/18/23 00:31 Phenobarbital Sodium (Phenobarbital Sodium 65 Mg/Ml Vial) 130 mg IV Q6H PRN PRN Reason: RASS > 0 Stop: 11/18/23 23:59 Thiamine HCl (Thiamine Hcl 100 Mg Tab) 100 mg PO QAM [facility] Stop: 12/15/23 08:59 Last Admin: 11/15/23 08:52 Dose: 100 mg ECG Rate (beats per minute): 99 Rhythm: sinus rhythm Findings: + other (LVH with repolarization abnormality, "cannot rule out inferior infarct, age undetermined") Comparison ECG Date: from (10/17/2023) Change: the following changes noted (Minimal criteria for inferior infarct are now present. TWI now evident in inferior leads, nonspecific t wave abnormalities in lateral leads) (5) Alcohol withdrawal Complication of substance-induced condition: uncomplicated Qualified Code(s): F10.930 - Alcohol use, unspecified with withdrawal, uncomplicated
[2023-11-15] MEDS: LACTATED RINGER'S 1,000 ML IV SCH (07:43)
[2023-11-15] MEDS: FOLIC ACID 1 MG TAB PO SCH (08:52)
[2023-11-15] MEDS: THIAMINE HCL 100 MG TAB PO SCH (08:52)
[2023-11-15 09:46] LABS: RBC Morphology Unremarkable
[2023-11-15] MEDS: PHENobarbitaL 30 MG TAB PO SCH (12:51)
[2023-11-15] MEDS ORDERED: LORazepam 3 MG in SYRINGE 1.5 ML IV PRN (15:00)
[2023-11-15] MEDS ORDERED: LORazepam 1 MG TAB PO PRN ×2 (15:00)
[2023-11-15] MEDS ORDERED: Ativan IV Alcohol Withdrawal--Active Protocol IV PRN (15:00)
[2023-11-15] MEDS ORDERED: LORazepam 2 MG in SYRINGE 1 ML IV PRN (15:00)
[2023-11-15] MEDS ORDERED: Ativan PO Alcohol Withdrawal--Active Protocol PO PRN (15:00)
[2023-11-15] MEDS ORDERED: LORazepam 1 MG in SYRINGE 0.5 ML IV PRN (15:00)
[2023-11-15] MEDS ORDERED: DICLOFENAC SOD 1% GEL 100 GM TUBE EXT PRN (17:18)
--- NOTE | 2023-11-15 18:15 | Billing Data ---
Date of Service November 15, 2023 Coding Level of Care Code 92408 SUB INP/OBS CARE
[2023-11-15] MEDS: HEPARIN SOD 5,000 UNIT/0.5 ML VIAL SQ SCH (21:02)
[2023-11-16 06:46] LABS: Hematocrit (blood only) 19.8 % (42.0-52.0); Hemoglobin 6.8 g/dl (14.0-18.0); Mean Corpuscular Hemoglobin 33.2 pg (25.0-34.0); Mean Corpuscular Hgb Conc 34.3 g/dL (32.0-36.0); Mean Corpuscular Volume 96.6 fL (80.0-100.0); Mean Platelet Volume 10.3 fL (9.4-12.4); Platelet Count 156 K/uL (130-400); RDW Coefficient of Variation 16.3 % (11.5-14.5); RDW Standard Deviation 57.3 fL (36.4-46.3); Red Blood Count 2.05 M/uL (4.70-6.10); White Blood Count 7.41 K/ul (4.8-10.8)
[2023-11-16 07:01] LABS: Albumin Level 2.9 gm/dl (3.4-5.0); BUN Creatinine Ratio 16.2 (10-20); Bilirubin,Total 1.1 mg/dl (0.2-1.0); Calcium 7.9 mg/dl (8.6-10.3); Creatinine Clr Calc Pharmacy 37.6 ml/min; Est GFR (African American) 41.6 ml/min; Est GFR (Non-African American) 35.9 ml/min; Globulin 2.9 gm/dl (2.5-4.0); Magnesium 1.4 mg/dl (1.7-2.4); Total Protein 5.8 gm/dl (6.0-8.3)
[2023-11-16 07:10] LABS: Basophils # (auto) 0.02 K/uL (0.00-0.20); Basophils % (auto) 0.3 %; Dohle Bodies 1+; Eosinophils % (auto) 1.3 %; Immature Granulocytes % (auto) 1.3 %; Lymphocytes # (auto) 0.71 K/uL (1.20-3.40); Lymphocytes % (auto) 9.6 %; Monocytes % (auto) 12.1 %; Neutrophils # (auto) 5.58 K/uL (1.40-6.50); Neutrophils % (auto) 75.4 %; Polychromasia 1+; Stomatocytes 1+; Target Cells 1+
[2023-11-16] MEDS: MAGNESIUM SULFATE / D5W 1 GM/100 ML BAG IV SCH (08:34)
[2023-11-16] MEDS: DICLOFENAC SOD 1% GEL 100 GM TUBE EXT SCH (08:36)
--- NOTE | 2023-11-16 08:40 | Hospitalist Progress Note ---
Date of Service November 16, 2023 Assessment & Plan (1) EARLINE (acute kidney injury): (2) Acute pancreatitis: (3) Central pontine myelinolysis: (4) Fall: (5) Alcohol withdrawal: (6) Hypomagnesemia: (7) Hyperlipidemia: (8) Prediabetes: (9) Right shoulder pain: Plan Normocytic Anemia -Hbg 8.8 on admission, Most recent 6.8 g/dl -Platelet count 196 on admission, most recent 156 -Clinically, no signs of active bleeding on physical exam, creatinine and BUN improving are clinically reassuring for renal profusion -New epigastric tenderness on PE -Typed and screened completed -Patient states that he would want to receive a blood transfusion if necessary (11/16/23) -Consider evaluating for esophageal varices due to worsening anemia with EDG, -No known history of esophageal varies -No prior chest CT or EDG in chart -Consider FOBT. If positive, consider EDG. -Continue to monitor for sings of bleeding on physical exam -Trend with CBC in AM Acute Pancreatitis -New mild epigastric abdominal tenderness on physical exam -Lipase 1778 on arrival, 444 on 11/15 -Identified on CT abd/pelvis 11/13: "Interval progression of the acute pancreatitis" -Continue Lactated Ringer, 200 ml/hr Acute renal failure (ARF) - improving -Likely combination of dehydration/prerenal EARLINE, ongoing diarrhea/GI losses, and alcohol use -On arrival: BUN 58, creatinine 5.01 (baseline 1.26) -Current: Trending downward - BUN 32, creatinine 1.98 -Urinalysis from 11/15/23: -1+ protein, 1+ glucose, 1+ ketones, 1+ blood -Hyaline casts (suggestive of dehydration/pre-renal EARLINE) and granular casts (suggestive of acute tubular necrosis) present -Continue fluids -Avoid all nephrotoxic agents -Trend CBC, CMP, mag Hypomagnesemia -Magnesium 1.4 on arrival, magnesium sulfate 1 g x 3 given -Back to 1.4 mg/dl -Replaced -Trend BMP in AM Alcohol Use Disorder - chronic -History of admissions for alcohol withdrawal; he denies alcohol withdrawal seizures -Patient contemplating quitting alcohol -Last drink on 11/12/23, Alcohol level WNL on arrival -Last AWSS at 1200 was 7 -Urine tox screen pending, negative for opiates, methadone, fentanyl, PCP, amphetamines, MDMA, benzodiazepines, cocaine, THC - Fall precautions - Seizure precautions - AWSS at risk protocol - RASS q4h - Communication order to notify provider for RASS >0 or AWSS >8 - Case management consulted as patient is open to discussing alcohol cessation/rehab - IVF resuscitation (as above) - Thiamine and folate supplementation daily Alcohol withdrawal - resolving -Discontinue IV phenobarbital -AWSS Ativan Right shoulder pain - acute -Endorses continued right shoulder pain following fall(s) -Shoulder XR on 11/14/23: No fracture or dislocation within the right shoulder. The right clavicle is intact. Mild degenerative changes within the right shoulder. IMPRESSION: No fracture or dislocation within the right shoulder. -Ordered Voltaren 1% 2g BID Severe Hepatic Steatosis -Identified on CT abd/pelvis 11/13: "Severe hepatic steatosis, unchanged." -Slight bump in ALT and AST from yesterday, ALT still WNL. -Increase in ALK (187), decrease in protein (5.8) and albumin (2.9( -11/14: Total bilirubin: 1.2, direct 0.8, AST 89, ALT 27, alk phos 155, albumin 2. -Continue to trend Hyponatremia -History of central pontine myelinolysis, high risk for recurrence due to AUD, liver disease, and hypokalemia -132 on arrival, currently 134 -Trend BMP Hypokalemia -acute -K 2.7 on arrival, potassium 40mEq p.o. given -Currently 3.0 -Trend BMP Diarrhea -Patient denies blood in stool and melena -PCR stool and C. difficile negative Abnormal EKG -Small, but real appearing Q waves present in inferior leads -Troponin normal -Clinical significance undetermined -Consider echo if patient develops any symptoms -Recommend to follow up with PCP outpatient Hypothyroidism - Levothyroxine 125 Mcg -TSH 2.062 -Continue levothyroxine Hypertension - Valsartan 230 mg -Continue valsartan 230 mg PO QAM FEN: low fat diet Code status: full code DVT ppx: Heparin SQ Held home meds: N/A Consults: N/A consider psych consult Case management: Consulted as patient is open to discussing alcohol cessation/rehab Dispo: telemetry Admission and Anticipated Discharge Date Admission Date: November 14, 2023 Supervising Physician Co-Signing Physician Notes I personally examined the patient and verified all mccauley points of history and exam, discussed case, and agree with decision making with Dr Gonzales and Yuliana Anderson MS4 Feels weak and tired. Abdominal pain earlier seems to be improved now. No hematemesis. No bowel movements. Vitals noted, in general he is awake fatigued no distress. Breathing unlabored no accessory muscle use good effort. Abdomen is soft mildly distended nontender (the rest my team noted that it was earlier) no guarding rebound or rigidity. Extremities are without cyanosis or clubbing no calf tenderness. Anemiahave to assume acute blood loss from upper GI bleeding given his alcohol abuse history and abdominal pain earlier. That said, he is overall hemodynamically reassuring and not showing overt bleeding. Already on a twice daily PPIwill add an H2 for additional acid/mucosal suppression. Follow. If it is clear that it is GI bleeding, will need to ask GI to see him given the risk of esophageal varices, consider initiating ceftriaxone given risk of variceal bleed and bacterial translocation, and at the same time given that this is still more of an undefined anemiafollowing closely. Given his raw hemoglobin values as well as fatiguetransfuse. Acute renal failureseems to be predominantly prerenal. To be seen how much might also be ATN, but fortunately at least his creatinine is improved markedly with IV fluids. Continue fluids, follow. It is reassuring that his creatinine continues to improve even with his hemoglobin having dropped. Alcohol abuse/withdrawalthiamine, folate, Symptom triggered benzodiazepines Elevated lipase/pancreatitis type findings on CTsuspect more chronic pancreatitis based on lab and imaging but no symptoms. Follow closely. DVT proph - heparin SQ Subjective Alexei Adams is a 58 year old male with a PMHx of AUD, osmotic demyelination syndrome (central pontine myelinolysis), prediabetes, asthma, hypothyroidism, HTN, HLD, GERD, Hunter's esophagus, SUZI, allergic rhinitis, anxiety who was admitted on 11/14/23 for concerns of a fall and alcohol withdrawal. Fall -Patient reports falling and striking his head and right shoulder on 11/14/23 -He is unsure if he also fell on 11/13/23 Alcohol Use Disorder with active withdrawal -Patient states that he experienced withdrawal symptoms 1 month ago when he tried to quit drinking -Stress management: cutting grass. Played baseball and football when younger. -He returned to drinking since that time. He states that he doesn't have a reason for starting drinking again. He stopped drinking 2 days prior to admission because he ran out of alcohol. -He had been drinking "4 drinks of rum" per day -He denies a history of alcohol withdrawal seizures. He denies other recreational drug use. -No change in dietary habits, but has been drinking less fluids. Right Shoulder Pain -Patient reports he struck his head as well as his right shoulder during the fall. -Patient endorses continued right shoulder pain, worse with movement -Radiation: Down his hand; no radiation to the scapula. No recent changes in medication, but did not take his home meds for 2 days prior to admission. Primary Care Provider: N/A Overnight events: N/A Pain control: Right shoulder pain not well controlled, would like more voltaren gel and an ice pack Bowel/bladder concerns: None, unsure when his last bowel movement Nutritional Status: Able to eat and drink without difficulty, no nausea or vomiting Other: No chest pain, SOB Patient states that he would want to receive a blood transfusion if necessary. Review of Systems Review of Systems: See HPI, otherwise negative Physical Exam Physical Exam: Constitutional: Minimally drowsy, patient lying in bed uncomfortably with legs handing off the side, no acute distress. HEENT: NCAT, no conjunctival injection, no scleral icterus CV: Slightly tachycardic, regular rhythm, no murmur appreciated, extremities well-perfused, no LE edema Resp: Patient unable to lean forward for respiratory exam secondary right shoulder pain. Lungs sounds slightly diminished in all kent. No wheezes/rales/rhonchi appreciated, no increased work of breathing GI: soft, nondistended, mildly tender to palpation in the epigastric region, BS normoactive MSK: no gross deformities appreciated. Skin: warm, dry, no rash appreciated, Healing laceration present on forehead between eyebrows. Neuro: Minimally drowsy, oriented, no focal neurologic deficit appreciated. Tremor noted in hands bilaterally. Results & Data Results & Data Vital Signs (Past 12 Hours) Vital Signs Temp Pulse Pulse Resp BP Pulse Ox O2 Del Method 11/16/23 08:22 99.3 F 103 H 19 97/75 L 93 Room Air 11/16/23 03:32 98.6 F 99 H 29 H 112/81 90 Room Air 11/16/23 00:00 98.4 F 100 H 23 101/71 90 Room Air 11/15/23 22:08 103 H Laboratory Results Abnormal Lab Results 11/16/23 06:21 WBC 7.41 RBC 2.05 L Hgb 6.8 L* Hct 19.8 L* MCV 96.6 MCH 33.2 MCHC 34.3 RDW Std Deviation 57.3 H RDW Coeff of Joshua 16.3 H Plt Count 156 MPV 10.3 Immature Gran % (Auto) 1.3 Neut % (Auto) 75.4 Lymph % (Auto) 9.6 [place] % (Auto) 12.1 Eos % (Auto) 1.3 Baso % (Auto) 0.3 Neut # (Auto) 5.58 Lymph # (Auto) 0.71 L [place] # (Auto) 0.90 H Eos # (Auto) 0.10 Baso # (Auto) 0.02 Immature Gran # (Auto) 0.10 Dohle Bodies 1+ Polychromasia 1+ Target Cells 1+ Stomatocytes 1+ Sodium 134 L Potassium 3.0 L Chloride 99 Carbon Dioxide 27 Anion Gap 8 BUN 32 H Creatinine 1.98 H D Est Cr Clr Drug Dosing 37.6 Est GFR ( Amer) 41.6 Est GFR (Non-Af Amer) 35.9 BUN/Creatinine Ratio 16.2 Glucose 112 H Calcium 7.9 L Magnesium 1.4 L Total Bilirubin 1.1 H AST 103 H ALT 32 Alkaline Phosphatase 187 H Total Protein 5.8 L Albumin 2.9 L Globulin 2.9 Albumin/Globulin Ratio 1.0 Medications Administered Current Inpatient Medications Albuterol (Albuterol Hfa 8 Gm Inhaler) 1 puffs INH Q4 PRN PRN Reason: Shortness Of Breath Stop: 12/14/23 19:54 Atorvastatin Calcium (Atorvastatin 40 Mg Tab) 40 mg PO QPM NAEEM Stop: 12/14/23 20:59 Last Admin: 11/15/23 21:01 Dose: 40 mg Diclofenac Sodium (Diclofenac Sod 1% Gel 100 Gm Tube) 2 gm EXT QID NAEEM; Protocol Stop: 12/16/23 08:59 Last Admin: 11/16/23 08:36 Dose: 2 gm Ezetimibe (Ezetimibe 10 Mg Tab) 10 mg PO HS [facility] Stop: 12/14/23 20:59 Last Admin: 11/15/23 21:02 Dose: 10 mg Escitalopram Oxalate (Escitalopram Oxalate 20 Mg Tab) 20 mg PO QPM [facility] Stop: 12/14/23 20:59 Last Admin: 11/15/23 21:02 Dose: 20 mg Folic Acid (Folic Acid 1 Mg Tab) 1 mg PO QAM [facility] Stop: 12/15/23 08:59 Last Admin: 11/16/23 08:36 Dose: 1 mg Heparin Sodium (Porcine) (Heparin Sod 5,000 Unit/0.5 Ml Vial) 5,000 units SQ Q12 [facility] Stop: 12/15/23 20:59 Last Admin: 11/16/23 08:36 Dose: 5,000 units Lactated Ringer's (Lr) 1,000 mls @ 100 mls/hr IV .Q10H [facility] Stop: 12/15/23 07:44 Last Admin: 11/16/23 00:25 Dose: 100 mls/hr Lorazepam 1 mg/ Syringe 1 mls @ 2 mls/min IV UD PRN; Protocol PRN Reason: EtOH Withdrawal AWSS Score 6,7 Stop: 12/15/23 14:59 Lorazepam 2 mg/ Syringe 2 mls @ 2 mls/min IV UD PRN; Protocol PRN Reason: EtOH Withdrawal AWSS Score 8,9 Stop: 12/15/23 14:59 Lorazepam 3 mg/ Syringe 3 mls @ 2 mls/min IV ONCE PRN; Protocol PRN Reason: EtOH Withdrawal AWSS Score 10+ Magnesium Sulfate/Dextrose (Magnesium Sulfate / D5w) 1 gm in 100 mls @ 50 mls/hr IV Q2H [facility] Stop: 11/16/23 13:29 Last Admin: 11/16/23 08:34 Dose: 50 mls/hr Levothyroxine Sodium (Levothyroxine Sodium 125 Mcg Tablet) 125 mcg PO DAILYBB [facility] Stop: 12/15/23 06:29 Last Admin: 11/16/23 06:08 Dose: 125 mcg Loperamide HCl (Loperamide Hcl 2 Mg Cap) 2 mg PO Q2H PRN PRN Reason: loose stool Stop: 12/14/23 19:54 Last Admin: 11/14/23 21:05 Dose: 2 mg Lorazepam (Lorazepam 1 Mg Tab) 1 mg PO UD PRN; Protocol PRN Reason: EtOH Withdrawal AWSS Score 6,7 Stop: 12/15/23 14:59 Lorazepam (Lorazepam 1 Mg Tab) 3 mg PO ONCE PRN; Protocol PRN Reason: EtOH Withdrawal AWSS Score 10 & above Lorazepam (Lorazepam 1 Mg Tab) 2 mg PO UD PRN; Protocol PRN Reason: EtOH Withdrawal AWSS Score 8,9 Stop: 12/15/23 14:59 Ondansetron HCl (Ondansetron Inj 2 Mg/Ml 2 Ml Vial) 4 mg IV Q6H PRN PRN Reason: Nausea Stop: 12/14/23 19:54 Last Admin: 11/14/23 21:06 Dose: 4 mg Pantoprazole Sodium (Pantoprazole 40 Mg Tab) 40 mg PO BID [facility] Stop: 12/14/23 20:59 Last Admin: 11/16/23 08:36 Dose: 40 mg Thiamine HCl (Thiamine Hcl 100 Mg Tab) 100 mg PO QAM [facility] Stop: 12/15/23 08:59 Last Admin: 11/16/23 08:36 Dose: 100 mg (5) Alcohol withdrawal Complication of substance-induced condition: uncomplicated Qualified Code(s): F10.930 - Alcohol use, unspecified with withdrawal, uncomplicated
[2023-11-16] MEDS ORDERED: PHENobarbitaL 30 MG TAB PO SCH (12:30)
[2023-11-16 15:06] LABS: Hematocrit (blood only) 19.4 % (42.0-52.0); Hemoglobin 6.4 g/dl (14.0-18.0)
[2023-11-16] MEDS ORDERED: SODIUM CHLORIDE 0.9% 250 ML IV PRN (16:14)
--- NOTE | 2023-11-16 17:15 | Billing Data ---
Date of Service November 16, 2023 Coding Level of Care Code 63491 SUB INP/OBS CARE MIN
[2023-11-16] MEDS: FAMOTIDINE 20MG IV PUSH 20 MG/5 ML SYR IV STA (17:52)
[2023-11-16] MEDS: FAMOTIDINE 20MG IV PUSH 20 MG/5 ML SYR IV SCH (21:15)
[2023-11-16 21:40] LABS: Hematocrit (blood only) 23.4 % (42.0-52.0)
[2023-11-17 05:59] LABS: Hematocrit (blood only) 21.9 % (42.0-52.0); Hemoglobin 7.6 g/dl (14.0-18.0); Mean Corpuscular Hemoglobin 32.3 pg (25.0-34.0); Mean Corpuscular Hgb Conc 34.7 g/dL (32.0-36.0); Mean Corpuscular Volume 93.2 fL (80.0-100.0); Mean Platelet Volume 10.3 fL (9.4-12.4); Nucleated RBC # (auto) 0.02 K/uL (0.00-0.12); Nucleated RBC % (auto) 0.2 %; Platelet Count 165 K/uL (130-400); RDW Standard Deviation 61.6 fL (36.4-46.3); Red Blood Count 2.35 M/uL (4.70-6.10); White Blood Count 8.13 K/ul (4.8-10.8)
[2023-11-17 06:19] LABS: Albumin Globulin Ratio 0.9 (0.9-2); Albumin Level 2.7 gm/dl (3.4-5.0); BUN Creatinine Ratio 13.3 (10-20); Bilirubin,Total 1.7 mg/dl (0.2-1.0); Calcium 7.9 mg/dl (8.6-10.3); Creatinine Clr Calc Pharmacy 49.6 ml/min; Est GFR (African American) 58.2 ml/min; Est GFR (Non-African American) 50.2 ml/min; Globulin 2.9 gm/dl (2.5-4.0); Magnesium 1.4 mg/dl (1.7-2.4); Potassium 2.9 mmol/L (3.5-5.1); Total Protein 5.6 gm/dl (6.0-8.3)
[2023-11-17 06:44] LABS: Basophils # (auto) 0.03 K/uL (0.00-0.20); Basophils % (auto) 0.4 %; Eosinophils # (auto) 0.12 K/uL (0.00-0.50); Eosinophils % (auto) 1.5 %; Immature Granulocytes # (auto) 0.14 K/uL (0.01-0.20); Immature Granulocytes % (auto) 1.7 %; Lymphocytes # (auto) 0.93 K/uL (1.20-3.40); Lymphocytes % (auto) 11.4 %; Monocytes # (auto) 0.88 K/uL (0.11-0.59); Monocytes % (auto) 10.8 %; Neutrophils # (auto) 6.03 K/uL (1.40-6.50); Neutrophils % (auto) 74.2 %; Polychromasia 1+; Stomatocytes 1+
[2023-11-17] MEDS: MAGNESIUM SULFATE / D5W 1 GM/100 ML BAG IV SCH (08:11)
[2023-11-17 08:26] LABS: Phosphorus 1.1 mg/dl (2.5-4.9)
[2023-11-17] MEDS ORDERED: POTASSIUM PHOS 3 MMOL/1 ML INFUSION IV STA (09:09)
[2023-11-17] MEDS: POTASSIUM PHOSPHATE 30 MMOL in SODIUM CHLORIDE 0.9% 500 ML IV ONE (09:35)
[2023-11-17] MEDS: LORazepam 1 MG TAB PO PRN (10:56)
--- NOTE | 2023-11-17 15:44 | Hospitalist Progress Note ---
Date of Service November 17, 2023 Assessment & Plan (1) EARLINE (acute kidney injury): (2) Acute pancreatitis: (3) Central pontine myelinolysis: (4) Fall: (5) Alcohol withdrawal: (6) Hypomagnesemia: (7) Hyperlipidemia: (8) Prediabetes: (9) Right shoulder pain: Plan Normocytic Anemia -Hbg 8.8 on admission. Dropped to 6.8 g/dl on 11/16, was given 1 unit of RBC. Hbg now 7.6 -Typed and screened -Patient states that he would want to receive a blood transfusion if ne cessary (11/16/23) -Clinically, no signs of active bleeding on physical exam, creatinine and BUN improving are clinically reassuring for renal profusion -No obvious signs of distention. Patient not reporting abd pain. -Continue to monitor for sings of bleeding on physical exam -FOBT positive -Concerning for GI bleed and/or malignancy, unclear if upper or lower in origin based on presentation -Consider consulting GI for EDG and/or colonoscopy -Consider SBP prophylaxis if symptoms change or worsen -Consider another transfusion if hemoglobin continues to decline -Trend with CBC Altered mental status -Patient was sitting up, eating, and alert in the morning. He was somnolent in the afternoon and unable to stay awake during the interview. 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) -There many potential contributing factors (anemia, alcohol withdrawal, recent benzodiazepine administration, chronic malnutrition leading to electrolyte abnormalities) - Delirium is less likely, as presentation has been consistent over few days -Continue to monitor for changes in presentation Alcohol Use Disorder - chronic -History of admissions for alcohol withdrawal; he denies alcohol withdrawal seizures -Patient contemplating quitting alcohol -Last drink on 11/12/23, Alcohol level WNL on arrival - Fall precautions - Seizure precautions - AWSS at risk protocol - RASS q4h - Communication order to notify provider for RASS >0 or AWSS >8 - Case management consulted as patient is open to discussing alcohol cessation/rehab - IVF resuscitation - Thiamine and folate supplementation daily Alcohol withdrawal -See AUD for plan Acute renal failure (ARF) -Likely combination of dehydration/prerenal EARLINE, ongoing diarrhea/GI losses, and alcohol use -On arrival: BUN 58, creatinine 5.01 (baseline 1.26) -Current: creatinine 1.50 -Continue fluids -Avoid all nephrotoxic agents -Trend CBC, CMP, mag Hypophosphorous -In the context of AUD and malnutrition -Current: 1.1 -Ordered Potassium Phosphorous 30 mmol IV -Trend BMP Hypomagnesemia -In the context of AUD and malnutrition -1.4 mg/dl -Ordered Magnesium 1 mg 100 ml IV -Trend BMP Hyponatremia -In the context of AUD and malnutrition -History of central pontine myelinolysis, high risk for recurrence due to AUD, liver disease, and hypokalemia -132 on arrival, currently 134 -Continue fluids -Trend BMP Hypokalemia -In the context of AUD and malnutrition -K 2.7 on arrival, potassium 40mEq p.o. given -Currently 3.0, ordered Potassium Phosphorous 30 mmol IV -Trend BMP Acute Pancreatitis -Abdominal tenderness from yesterday has resolved -Lipase 1778 on arrival, 444 on 11/15 -Identified on CT abd/pelvis 11/13: "Interval progression of the acute pancreatitis" -Continue Lactated Ringer, 100 ml/hr Right shoulder pain -Shoulder pain is improving -Shoulder XR on 11/14/23: No fracture or dislocation within the right shoulder. The right clavicle is intact. Mild degenerative changes within the right shoulder. IMPRESSION: No fracture or dislocation within the right shoulder. -Continue Voltaren 1% 2g BID and ice packs as needed Severe Hepatic Steatosis -Identified on CT abd/pelvis 11/13: "Severe hepatic steatosis, unchanged." -Continue to trend total bilirubin, AST, ALT, alk phos Abnormal EKG -Small, but real appearing Q waves present in inferior leads. - Troponin normal -Clinical significance undetermined -Consider echo if patient develops any symptoms -Recommend to follow up with PCP outpatient Diarrhea -Patient denies blood in stool and melena -FOBT positive (see anemia for plan) -PCR stool and C. difficile negative Hypothyroidism - Levothyroxine 125 Mcg -TSH 2.062 -Continue levothyroxine Hypertension - Valsartan 230 mg -Continue valsartan 230 mg PO QAM FEN: low fat diet Code status: full code DVT ppx: Heparin SQ Held home meds: N/A Consults: N/A consider psych consult Case management: Consulted as patient is open to discussing alcohol cessation/rehab Dispo: telemetry Admission and Anticipated Discharge Date Admission Date: November 14, 2023 Supervising Physician Co-Signing Physician Notes I personally examined the patient and verified all mccauley points of history and exam, discussed case, and agree with decision making with Dr Esparza and Yuliana Anderson MS4 Fairly tired. Limited HPI and review of systems, offers no complaints. Vitals noted, in general he is awake easily falls asleep. Does not appear to be in pain/respiratory/physical distress. HEENT normocephalic atraumatic mucous membranes moist. Breathing unlabored no accessory muscle use good effort. Skin without rashes pallor or icterus. Neuro without focal deficits. Anemia Heme positive stools. Fortunately without significant upper GI symptoms, I doubt it is a variceal bleed. At the same time definitely would benefit having an EGD in the near future given that he has longstanding liver disease. Continue acid suppression for now. No clear role for initiating ceftriaxone. Clinically more concerned about a lower GI sourceand long-term definitely feel he should have a colonoscopy to rule out lower GI malignancy. Now status post 1 unit of packed red cells for a hemoglobin of bottomed out about 6.4. He is hemodynamically stable and his hemoglobin is acceptable at this time. 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 Continue to follow closely. escalate thiamine to be safe Acute renal failureseems to be predominantly prerenal. Improving nicely. Alcohol abuse/withdrawalthiamine, folate, Symptom triggered benzodiazepines. Seems to be out of danger as it relates to alcohol withdrawal. Elevated lipase/pancreatitis type findings on CTsuspect more chronic pancreatitis based on lab and imaging but no symptoms. Follow closely. DVT proph - heparin SQ Subjective Alexei Adams is a 58 year old male with a PMHx of AUD, osmotic demyelination syndrome (central pontine myelinolysis), prediabetes, asthma, hypothyroidism, HTN, HLD, GERD, Hunter's esophagus, SUZI, allergic rhinitis, anxiety who was admitted on 11/14/23 for concerns of a fall and alcohol withdrawal. Fall -Patient reports falling and striking his head and right shoulder on 11/14/23 -He is unsure if he also fell on 11/13/23 Alcohol Use Disorder with active withdrawal -Patient states that he experienced withdrawal symptoms 1 month ago when he tried to quit drinking -Stress management: cutting grass. Played baseball and football when younger. -He returned to drinking since that time. He states that he doesn't have a reason for starting drinking again. He stopped drinking 2 days prior to admission because he ran out of alcohol. -He had been drinking "4 drinks of rum" per day -He denies a history of alcohol withdrawal seizures. He denies other recreational drug use. 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 -Patient endorses improving right shoulder pain, worse with movement -Radiation: Down his hand; no radiation to the scapula. No recent changes in medication, but did not take his home meds for 2 days prior to admission. Overnight events: N/A He states that he is feeling okay and has no new symptoms. Patient denies headache, anxiety, chest pain, sob, abdominal pain, melena, hematochezia, hematemesis, nausea, vomiting, visual/auditory hallucination, Review of Systems Review of Systems: See HPI, otherwise negative Physical Exam Physical Exam: Constitutional: Patient sitting up in bed, no acute distress. Wearing inc ontinence briefs. HEENTM: ANTHONY, scleral icterus absent Lungs: non labored respiration CV: No LE edema. Resp: No increased work of breathing MSK: no gross deformities appreciated. Has difficulty repositioning himself in bed and getting out of bed to use the restroom. Skin: Dry, no rash appreciated, healing laceration present on forehead between eyebrows. Neuro: No focal neurologic deficit appreciated. Tremor present in hands bilaterally. Results & Data Results & Data Vital Signs (Past 12 Hours) Vital Signs Temp Pulse Pulse Resp BP BP Pulse Ox 11/17/23 07:45 98.2 F 94 H 24 131/101 H 91 11/17/23 03:12 98.4 F 98 H 25 H 124/89 95 11/17/23 00:00 11/16/23 23:19 97.9 F 111 H 30 H 127/91 90 11/16/23 23:17 105 H 11/16/23 21:49 99.5 F 97 H 25 H 110/79 97 11/16/23 20:21 99.5 F 97 H 25 H 110/79 90 O2 Del Method O2 Del Method 11/17/23 07:45 Room Air 11/17/23 03:12 Room Air 11/17/23 00:00 Room Air 11/16/23 23:19 Room Air 11/16/23 23:17 11/16/23 21:49 11/16/23 20:21 Room Air Laboratory Results Abnormal Lab Results 11/14/23 11/16/23 11/16/23 22:22 14:32 21:19 WBC RBC Hgb 6.4 L* 8.0 L Hct 19.4 L* 23.4 L MCV MCH MCHC RDW Std Deviation RDW Coeff of Joshua Plt Count MPV Immature Gran % (Auto) Neut % (Auto) Lymph % (Auto) Mckean % (Auto) Eos % (Auto) Baso % (Auto) Neut # (Auto) Lymph # (Auto) Mckean # (Auto) Eos # (Auto) Baso # (Auto) Immature Gran # (Auto) Absolute Nucleated RBC Nucleated RBC % (auto) Polychromasia Stomatocytes Sodium Potassium Chloride Carbon Dioxide Anion Gap BUN Creatinine Est Cr Clr Drug Dosing Est GFR ( Amer) Est GFR (Non-Af Amer) BUN/Creatinine Ratio Glucose Calcium Phosphorus Magnesium Total Bilirubin AST ALT Alkaline Phosphatase Total Protein Albumin Globulin Albumin/Globulin Ratio Stool Occult Bld Scrn Blood Type O Positive Antibody Screen NEGATIVE Crossmatch See Detail 11/17/23 11/17/23 05:26 08:40 WBC 8.13 RBC 2.35 L Hgb 7.6 L Hct 21.9 L MCV 93.2 MCH 32.3 MCHC 34.7 RDW Std Deviation 61.6 H RDW Coeff of Joshua 18.0 H Plt Count 165 MPV 10.3 Immature Gran % (Auto) 1.7 Neut % (Auto) 74.2 Lymph % (Auto) 11.4 Mckean % (Auto) 10.8 Eos % (Auto) 1.5 Baso % (Auto) 0.4 Neut # (Auto) 6.03 Lymph # (Auto) 0.93 L Mckean # (Auto) 0.88 H Eos # (Auto) 0.12 Baso # (Auto) 0.03 Immature Gran # (Auto) 0.14 Absolute Nucleated RBC 0.02 Nucleated RBC % (auto) 0.2 Polychromasia 1+ Stomatocytes 1+ Sodium 134 L Potassium 2.9 L Chloride 99 Carbon Dioxide 27 Anion Gap 8 BUN 20 Creatinine 1.50 H D Est Cr Clr Drug Dosing 49.6 Est GFR ( Amer) 58.2 Est GFR (Non-Af Amer) 50.2 BUN/Creatinine Ratio 13.3 Glucose 117 H Calcium 7.9 L Phosphorus 1.1 L* Magnesium 1.4 L Total Bilirubin 1.7 H D AST 173 H ALT 51 Alkaline Phosphatase 202 H Total Protein 5.6 L Albumin 2.7 L Globulin 2.9 Albumin/Globulin Ratio 0.9 Stool Occult Bld Scrn Positive A Blood Type Antibody Screen Crossmatch Medications Administered Current Inpatient Medications Albuterol (Albuterol Hfa 8 Gm Inhaler) 1 puffs INH Q4 PRN PRN Reason: Shortness Of Breath Stop: 12/14/23 19:54 Atorvastatin Calcium (Atorvastatin 40 Mg Tab) 40 mg PO QPM NAEEM Stop: 12/14/23 20:59 Last Admin: 11/16/23 21:09 Dose: 40 mg Diclofenac Sodium (Diclofenac Sod 1% Gel 100 Gm Tube) 2 gm EXT QID NAEEM; Protocol Stop: 12/16/23 08:59 Last Admin: 11/17/23 13:00 Dose: 2 gm Ezetimibe (Ezetimibe 10 Mg Tab) 10 mg PO HS [facility] Stop: 12/14/23 20:59 Last Admin: 11/16/23 21:09 Dose: 10 mg Escitalopram Oxalate (Escitalopram Oxalate 20 Mg Tab) 20 mg PO QPM NAEEM Stop: 12/14/23 20:59 Last Admin: 11/16/23 21:09 Dose: 20 mg Folic Acid (Folic Acid 1 Mg Tab) 1 mg PO QAM NAEEM Stop: 12/15/23 08:59 Last Admin: 11/17/23 08:12 Dose: 1 mg Lactated Ringer's (Lr) 1,000 mls @ 100 mls/hr IV .Q10H NAEEM Stop: 12/15/23 07:44 Last Infusion: 11/17/23 09:40 Dose: 0 mls/hr Lorazepam 1 mg/ Syringe 1 mls @ 2 mls/min IV UD PRN; Protocol PRN Reason: EtOH Withdrawal AWSS Score 6,7 Stop: 12/15/23 14:59 Lorazepam 2 mg/ Syringe 2 mls @ 2 mls/min IV UD PRN; Protocol PRN Reason: EtOH Withdrawal AWSS Score 8,9 Stop: 12/15/23 14:59 Lorazepam 3 mg/ Syringe 3 mls @ 2 mls/min IV ONCE PRN; Protocol PRN Reason: EtOH Withdrawal AWSS Score 10+ Famotidine (Pepcid 20mg Iv Push) 20 mg in 5 mls @ 2.5 mls/min IV BID [facility] Stop: 12/16/23 20:59 Last Admin: 11/17/23 08:12 Dose: 2.5 mls/min Magnesium Sulfate/Dextrose (Magnesium Sulfate / D5w) 1 gm in 100 mls @ 50 mls/hr IV Q2H [facility] Stop: 11/17/23 15:44 Last Admin: 11/17/23 13:00 Dose: 50 mls/hr Potassium Phosphate 30 mmol/ (Sodium Chloride) 510 mls @ 88 mls/hr IV ONE ONE Stop: 11/17/23 15:02 Last Infusion: 11/17/23 14:35 Dose: Infused Levothyroxine Sodium (Levothyroxine Sodium 125 Mcg Tablet) 125 mcg PO DAILYBB [facility] Stop: 12/15/23 06:29 Last Admin: 11/17/23 05:41 Dose: 125 mcg Loperamide HCl (Loperamide Hcl 2 Mg Cap) 2 mg PO Q2H PRN PRN Reason: loose stool Stop: 12/14/23 19:54 Last Admin: 11/14/23 21:05 Dose: 2 mg Lorazepam (Lorazepam 1 Mg Tab) 1 mg PO UD PRN; Protocol PRN Reason: EtOH Withdrawal AWSS Score 6,7 Stop: 12/15/23 14:59 Last Admin: 11/17/23 10:56 Dose: 1 mg Lorazepam (Lorazepam 1 Mg Tab) 3 mg PO ONCE PRN; Protocol PRN Reason: EtOH Withdrawal AWSS Score 10 & above Lorazepam (Lorazepam 1 Mg Tab) 2 mg PO UD PRN; Protocol PRN Reason: EtOH Withdrawal AWSS Score 8,9 Stop: 12/15/23 14:59 Ondansetron HCl (Ondansetron Inj 2 Mg/Ml 2 Ml Vial) 4 mg IV Q6H PRN PRN Reason: Nausea Stop: 12/14/23 19:54 Last Admin: 11/14/23 21:06 Dose: 4 mg Pantoprazole Sodium (Pantoprazole 40 Mg Tab) 40 mg PO BID [facility] Stop: 12/14/23 20:59 Last Admin: 11/17/23 08:12 Dose: 40 mg Thiamine HCl (Thiamine Hcl 100 Mg Tab) 100 mg PO QAM [facility] Stop: 12/15/23 08:59 Last Admin: 11/17/23 08:12 Dose: 100 mg (5) Alcohol withdrawal Complication of substance-induced condition: uncomplicated Qualified Code(s): F10.930 - Alcohol use, unspecified with withdrawal, uncomplicated
--- NOTE | 2023-11-17 16:46 | Electrocardiogram Report ---
Test Reason : Blood Pressure : / mmHG Vent. Rate : 099 BPM Atrial Rate : 099 BPM P-R Int : 138 ms QRS Dur : 088 ms QT Int : 372 ms P-R-T Axes : 017 018 -67 degrees QTc Int : 477 ms Normal sinus rhythm Left ventricular hypertrophy with repolarization abnormality ( R in aVL , Romhilt-Wong ) Cannot rule out Inferior infarct , age undetermined Abnormal ECG When compared with ECG of 17-OCT-2023 16:26, Minimal criteria for Inferior infarct are now Present T wave inversion now evident in Inferior leads Nonspecific T wave abnormality now evident in Lateral leads Confirmed by Roe Bush [id number]) on 11/17/2023 4:46:22 PM Referred By: Confirmed By:Roe Bush
--- NOTE | 2023-11-17 17:42 | Billing Data ---
Date of Service November 17, 2023 Coding Level of Care Code 53945 SUB INP/OBS CARE MIN
--- NOTE | 2023-11-17 17:43 | Billing Data ---
Date of Service November 17, 2023 Coding Level of Care Code 63930 SUB INP/OBS CARE MIN
[2023-11-17] MEDS: THIAMINE HCL 500 MG in SODIUM CHLORIDE 0.9% 50 ML IV SCH (18:25)
[2023-11-18] MEDS ORDERED: PHENobarbitaL 30 MG TAB PO SCH (00:30)
[2023-11-18 07:22] LABS: Basophils # (auto) 0.03 K/uL (0.00-0.20); Basophils % (auto) 0.4 %; Eosinophils # (auto) 0.11 K/uL (0.00-0.50); Eosinophils % (auto) 1.3 %; Hematocrit (blood only) 23.7 % (42.0-52.0); Immature Granulocytes # (auto) 0.09 K/uL (0.01-0.20); Immature Granulocytes % (auto) 1.1 %; Lymphocytes # (auto) 0.76 K/uL (1.20-3.40); Lymphocytes % (auto) 9.1 %; Mean Corpuscular Hemoglobin 32.3 pg (25.0-34.0); Mean Corpuscular Hgb Conc 33.8 g/dL (32.0-36.0); Mean Corpuscular Volume 95.6 fL (80.0-100.0); Mean Platelet Volume 10.6 fL (9.4-12.4); Monocytes # (auto) 1.05 K/uL (0.11-0.59); Monocytes % (auto) 12.5 %; Neutrophils # (auto) 6.33 K/uL (1.40-6.50); Neutrophils % (auto) 75.6 %; Platelet Count 182 K/uL (130-400); Red Blood Count 2.48 M/uL (4.70-6.10); White Blood Count 8.37 K/ul (4.8-10.8)
--- NOTE | 2023-11-18 07:32 | Hospitalist Progress Note ---
Date of Service November 18, 2023 Assessment & Plan (1) EARLINE (acute kidney injury): Plan: Normocytic Anemia -Hbg 8.8 on admission. Dropped to 6.8 g/dl on 11/16, was given 1 unit of RBC. Hbg now 7.6 -Typed and screened -Patient states that he would want to receive a blood transfusion if necessary (11/16/23) -Clinically, no signs of active bleeding on physical exam, creatinine and BUN improving are clinically reassuring for renal profusion -No obvious signs of distention. Patient not reporting abd pain. -Continue to monitor for sings of bleeding on physical exam -FOBT positive -Concerning for GI bleed and/or malignancy, unclear if upper or lower in origin based on presentation -Consider consulting GI for EDG and/or colonoscopy -Consider SBP prophylaxis if symptoms change or worsen -Consider another transfusion if hemoglobin continues to decline -Trend with CBC Altered mental status -Patient was sitting up, eating, and alert in the morning. He was somnolent in the afternoon and unable to stay awake during the interview. 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) -There many potential contributing factors (anemia, alcohol withdrawal, recent benzodiazepine administration, chronic malnutrition leading to electrolyte abnormalities) - Delirium is less likely, as presentation has been consistent over few days -Continue to monitor for changes in presentation Alcohol Use Disorder - chronic -History of admissions for alcohol withdrawal; he denies alcohol withdrawal seizures -Patient contemplating quitting alcohol -Last drink on 11/12/23, Alcohol level WNL on arrival - Fall precautions - Seizure precautions - AWSS at risk protocol - RASS q4h - Communication order to notify provider for RASS >0 or AWSS >8 - Case management consulted as patient is open to discussing alcohol cessation/rehab - IVF resuscitation - Thiamine and folate supplementation daily Alcohol withdrawal -See AUD for plan Acute renal failure (ARF) -Likely combination of dehydration/prerenal EARLINE, ongoing diarrhea/GI losses, and alcohol use -On arrival: BUN 58, creatinine 5.01 (baseline 1.26) -Current: creatinine 1.50 -Continue fluids -Avoid all nephrotoxic agents -Trend CBC, CMP, mag Hypophosphorous -In the context of AUD and malnutrition -Current: 1.1 -Ordered Potassium Phosphorous 30 mmol IV -Trend BMP Hypomagnesemia -In the context of AUD and malnutrition -1.4 mg/dl -Ordered Magnesium 1 mg 100 ml IV -Trend BMP Hyponatremia -In the context of AUD and malnutrition -History of central pontine myelinolysis, high risk for recurrence due to AUD, liver disease, and hypokalemia -132 on arrival, currently 134 -Continue fluids -Trend BMP Hypokalemia -In the context of AUD and malnutrition -K 2.7 on arrival, potassium 40mEq p.o. given -Currently 3.0, ordered Potassium Phosphorous 30 mmol IV -Trend BMP Acute Pancreatitis -Abdominal tenderness from yesterday has resolved -Lipase 1778 on arrival, 444 on 11/15 -Identified on CT abd/pelvis 11/13: "Interval progression of the acute pancreatitis" -Continue Lactated Ringer, 100 ml/hr Right shoulder pain -Shoulder pain is improving -Shoulder XR on 11/14/23: No fracture or dislocation within the right shoulder. The right clavicle is intact. Mild degenerative changes within the right shoulder. IMPRESSION: No fracture or dislocation within the right shoulder. -Continue Voltaren 1% 2g BID and ice packs as needed Severe Hepatic Steatosis -Identified on CT abd/pelvis 11/13: "Severe hepatic steatosis, unchanged." -Continue to trend total bilirubin, AST, ALT, alk phos Abnormal EKG -Small, but real appearing Q waves present in inferior leads. - Troponin normal -Clinical significance undetermined -Consider echo if patient develops any symptoms -Recommend to follow up with PCP outpatient Diarrhea -Patient denies blood in stool and melena -FOBT positive (see anemia for plan) -PCR stool and C. difficile negative Hypothyroidism - Levothyroxine 125 Mcg -TSH 2.062 -Continue levothyroxine Hypertension - Valsartan 230 mg -Continue valsartan 230 mg PO QAM FEN: low fat diet Code status: full code DVT ppx: Heparin SQ Held home meds: N/A Consults: N/A consider psych consult Case management: Consulted as patient is open to discussing alcohol cessation/rehab Dispo: telemetry (2) Acute pancreatitis: (3) Central pontine myelinolysis: (4) Fall: (5) Alcohol withdrawal: (6) Hypomagnesemia: (7) Hyperlipidemia: (8) Prediabetes: (9) Right shoulder pain: Admission and Anticipated Discharge Date Admission Date: November 14, 2023 Supervising Physician Co-Signing Physician Notes I personally examined the patient and verified all mccauley points of history and exam, discussed case, and agree with decision making with Dr Esparza sleeping comfortably. Case discussed with resident physician. No new issues identified. Allowed patient to rest. Vitals noted, sleeping comfortably breathing unlabored. No rashes pallor or icterus. Anemia Heme positive stools. Hemoglobin now stable (did have 1 unit PRBC earlier in hospital stay) Fortunately without significant upper GI symptoms, I doubt it is a variceal bleed. At the same time definitely would benefit having an EGD in the near future given that he has longstanding liver disease. Continue acid suppression for now. No clear role for initiating ceftriaxone. Clinically more concerned about a lower GI sourceand long-term definitely feel he should have a colonoscopy to rule out lower GI malignancy. 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 Continue to follow closely. continue with escalated thiamine to be safe Acute renal failureseems to be predominantly prerenal. essentially resolved. Alcohol abuse/withdrawalthiamine, folate, Symptom triggered benzodiazepines. Seems to be out of danger as it relates to alcohol withdrawal. Elevated lipase/pancreatitis type findings on CTsuspect more chronic pancreatitis based on lab and imaging but no symptoms. Follow closely. DVT proph - heparin SQ Subjective Patient asleep in bed. Did not disturb. Review of Systems Review of Systems: All systems reviewed & are unremarkable except as noted in HPI & below Physical Exam Physical Exam: General: no acute distress, speaking in full sentences Resp: good inspiratory effort, no labored breathing HEENT: conjunctivae appear clear, no audible congestion, no swelling noted face or lips Skin: skin appears dry, normal coloration, no rash visible on exposed skin areas Neuro: Asleep Psych: euthymic affect, pleasant and interactive, logical thought process Results & Data Results & Data Vital Signs (Past 12 Hours) Vital Signs Temp Pulse Resp BP BP Pulse Ox Pulse Ox 11/18/23 03:51 36.8 C 93 H 25 H 148/90 H 90 11/18/23 00:04 36.9 C 97 H 24 149/90 H 92 11/18/23 00:00 92 11/17/23 19:42 37.0 C 100 H 20 143/100 H 93 O2 Del Method O2 Del Method 11/18/23 03:51 Room Air 11/18/23 00:04 Room Air 11/18/23 00:00 Room Air 11/17/23 19:42 Room Air Resident Activity Tracking Resident Involvement: Resident Care Provided Care Provided: Adult Hospital Medicine (5) Alcohol withdrawal Complication of substance-induced condition: uncomplicated Qualified Code(s): F10.930 - Alcohol use, unspecified with withdrawal, uncomplicated
[2023-11-18 07:36] LABS: BUN Creatinine Ratio 12.4 (10-20); Calcium 7.9 mg/dl (8.6-10.3); Creatinine Clr Calc Pharmacy 61.5 ml/min; Est GFR (African American) 75.5 ml/min; Est GFR (Non-African American) 65.1 ml/min
[2023-11-18] MEDS: POTASSIUM CHLORIDE CRTAB 20 MEQ TABCR PO STA (09:31)
[2023-11-18] MEDS: POTASSIUM CHLORIDE 20 MEQ/15 ML UDC PO STA (09:42)
--- NOTE | 2023-11-18 14:18 | Billing Data ---
Date of Service November 18, 2023 Coding Level of Care Code 26768 SUB INP/OBS CARE
--- NOTE | 2023-11-19 06:59 | Hospitalist Progress Note ---
Date of Service November 19, 2023 Assessment & Plan (1) EARLINE (acute kidney injury): Plan: Normocytic Anemia -Hgb 8.8 on admission. Dropped to 6.8 g/dl on 11/16, was given 1 unit of RBC. Hbg now 7.6. Hgb today 8.4 (at baseline). -Type and screen completed. -Clinically, no signs of active bleeding on physical exam, creatinine and BUN improving are clinically reassuring for renal profusion -No obvious signs of distention. Patient not reporting abd pain. -Continue to monitor for sings of bleeding on physical exam -FOBT positive -Concerning for GI bleed and/or malignancy, unclear if upper or lower in origin based on presentation -Consider consulting GI for EGD and/or colonoscopy -Consider SBP prophylaxis if symptoms change or worsen -Consider another transfusion if hemoglobin continues to decline -Trend with CBC Altered mental status -Patient was sitting up, eating, and alert in the morning. He was somnolent in the afternoon and unable to stay awake during the interview. 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) -There many potential contributing factors (anemia, alcohol withdrawal, recent benzodiazepine administration, chronic malnutrition leading to electrolyte abnormalities) - Delirium is less likely, as presentation has been consistent over few days -Continue to monitor for changes in presentation Alcohol Use Disorder - chronic -History of admissions for alcohol withdrawal; he denies alcohol withdrawal seizures -Patient contemplating quitting alcohol -Last drink on 11/12/23, Alcohol level WNL on arrival - Fall precautions - Seizure precautions - AWSS at risk protocol - RASS q4h - Communication order to notify provider for RASS >0 or AWSS >8 - Case management consulted as patient is open to discussing alcohol cessation/rehab - IVF resuscitation - Thiamine and folate supplementation daily Alcohol withdrawal -See AUD for plan Acute renal failure (ARF) resolved -Likely combination of dehydration/prerenal EARLINE, ongoing diarrhea/GI losses, and alcohol use -On arrival: BUN 58, creatinine 5.01 (baseline 1.26). Cr-1.26 on 11/19/2023. -Continue fluids -Avoid all nephrotoxic agents -Trend CBC, CMP, mag Hypophosphatemia -In the context of AUD and malnutrition -Current: 1.1 -Ordered Potassium Phosphorous 30 mmol IV -Trend Hypomagnesemia -In the context of AUD and malnutrition -1.4 mg/dl -Ordered Magnesium 1 mg 100 ml IV -Trend Hyponatremia resolved -In the context of AUD and malnutrition -History of central pontine myelinolysis, high risk for recurrence due to AUD, liver disease, and hypokalemia -132 on arrival, currently 134 -Continue fluids -Trend BMP Hypokalemia resolved -In the context of AUD and malnutrition -K 2.7 on arrival, potassium 40mEq p.o. given -Currently 3.0, ordered Potassium Phosphorous 30 mmol IV -Trend BMP Acute Pancreatitis -Abdominal tenderness from yesterday has resolved -Lipase 1778 on arrival, 444 on 11/15 -Identified on CT abd/pelvis 11/13: "Interval progression of the acute pancreatitis" -Continue Lactated Ringer, 100 ml/hr Right shoulder pain -Shoulder pain is improving -Shoulder XR on 11/14/23: No fracture or dislocation within the right shoulder. The right clavicle is intact. Mild degenerative changes within the right shoulder. IMPRESSION: No fracture or dislocation within the right shoulder. -Continue Voltaren 1% 2g BID and ice packs as needed Severe Hepatic Steatosis -Identified on CT abd/pelvis 11/13: "Severe hepatic steatosis, unchanged." -Continue to trend total bilirubin, AST, ALT, alk phos Abnormal EKG -Small, but real appearing Q waves present in inferior leads. - Troponin normal -Clinical significance undetermined -Consider echo if patient develops any symptoms -Recommend to follow up with PCP outpatient Diarrhea -Patient denies blood in stool and melena -FOBT positive (see anemia for plan) -PCR stool and C. difficile negative Hypothyroidism - Levothyroxine 125 Mcg -TSH 2.062 -Continue levothyroxine Hypertension - Valsartan 230 mg -Continue valsartan 230 mg PO QAM FEN: low fat diet Code status: full code DVT ppx: Heparin SQ Held home meds: N/A Consults: N/A consider psych consult Case management: Consulted as patient is open to discussing alcohol cessation/rehab Dispo: telemetry (2) Acute pancreatitis: (3) Central pontine myelinolysis: (4) Fall: (5) Alcohol withdrawal: (6) Hypomagnesemia: (7) Hyperlipidemia: (8) Prediabetes: (9) Right shoulder pain: Admission and Anticipated Discharge Date Admission Date: November 14, 2023 Supervising Physician Co-Signing Physician Notes I personally examined the patient and verified all mccauley points of history and exam, discussed case, and agree with decision making with Dr Esparza Physically feels okay. Is oriented, but definitely still seems slow mentally. He denies feeling any mental fog. Denies any significant pain. Not really much of any interest in eating today. Message to call his mother at [phone], tried to call, went to [employer] message (HIPAA compliant message). Vitals noted, in general he is awake and alert oriented x 3 although definitely seems to be easily confused and it still fairly hard to gauge his baseline mentation. No distress. Breathing unlabored no accessory muscle use good effort. Skin without rashes pallor or icterus. Neuro without focal deficits. Anemia Heme positive stools. Hemoglobin now stable (did have 1 unit PRBC earlier in hospital stay) Fortunately without significant upper GI symptoms, I doubt it is a variceal bleed. At the same time definitely would benefit having an EGD in the near future given that he has longstanding liver disease. Continue acid suppression for now. No clear role for initiating ceftriaxone (Does not at all seem consistent with variceal bleed). Clinically more concerned about a lower GI sourceand long-term definitely feel he should have a colonoscopy to rule out lower GI malignancy. 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 tried to call his mother at [phone], but it went to voicemail. His other contacts are listed as a friend (uncertain relationship), and her girlfriend (earlier in his hospital stay he related part of his drinking was due to stress and strained relationship with her)therefore I am not sure either of these contact numbers will be helpful in advancing his care; there was report of a son at the bedside earlier in the hospital stay, but was not there whenever I was able to see the patient, and I have no name/contact/etc. Continue to follow closely. continue with escalated thiamine to be safe Acute renal failureseems to be predominantly prerenal. essentially resolved. Alcohol abuse/withdrawalthiamine, folate, Symptom triggered benzodiazepines. Seems to be out of danger as it relates to alcohol withdrawal. Elevated lipase/pancreatitis type findings on CTsuspect more chronic pancreatitis based on lab and imaging but no symptoms. Follow closely. DVT proph - heparin SQ Disporight now capacity seems to wax and wane and is borderline on a good dayas best I can assess, although even this is quite limited by the fact that he is an extremely limited historian. Mentally I do have concerns about him being independent in his current mental status, and physically he seems to be too weak to be home independently as wellcontinue to try to improve or at least discern his baseline mentation, continue PT/OT eval and treat. Subjective Patient ambulating to bedside commode with nursing assistance on arrival. Left to return later. Review of Systems Review of Systems: All systems reviewed & are unremarkable except as noted in HPI & below Physical Exam Physical Exam: General: no acute distress Resp: good inspiratory effort, no labored breathing HEENT: conjunctivae appear clear, no audible congestion, no swelling noted face or lips Skin: skin appears dry, normal coloration, no rash visible on exposed skin areas Neuro: no focal deficits appreciated Results & Data Results & Data Vital Signs (Past 12 Hours) Vital Signs Temp Pulse Resp BP BP Pulse Ox O2 Del Method 11/19/23 03:02 37.1 C 83 19 126/88 92 Room Air 11/18/23 22:02 36.4 C L 101 H 27 H 143/98 H 96 Room Air 11/18/23 19:58 36.1 C L 92 H 20 129/89 96 Room Air Resident Activity Tracking Resident Involvement: Resident Care Provided Care Provided: Adult Hospital Medicine (5) Alcohol withdrawal Complication of substance-induced condition: uncomplicated Qualified Code(s): F10.930 - Alcohol use, unspecified with withdrawal, uncomplicated
[2023-11-19 08:21] LABS: Hematocrit (blood only) 25.6 % (42.0-52.0); Hemoglobin 8.4 g/dl (14.0-18.0); Mean Corpuscular Hemoglobin 32.2 pg (25.0-34.0); Mean Corpuscular Hgb Conc 32.8 g/dL (32.0-36.0); Mean Corpuscular Volume 98.1 fL (80.0-100.0); Mean Platelet Volume 10.4 fL (9.4-12.4); Platelet Count 216 K/uL (130-400); RDW Coefficient of Variation 18.9 % (11.5-14.5); RDW Standard Deviation 67.4 fL (36.4-46.3); Red Blood Count 2.61 M/uL (4.70-6.10); White Blood Count 9.64 K/ul (4.8-10.8)
[2023-11-19 08:40] LABS: BUN Creatinine Ratio 9.5 (10-20); Calcium 8.3 mg/dl (8.6-10.3); Creatinine Clr Calc Pharmacy 64.5 ml/min; Est GFR (African American) 71.9 ml/min; Potassium 3.7 mmol/L (3.5-5.1)
[2023-11-19 10:49] LABS: Magnesium 1.4 mg/dl (1.7-2.4); Phosphorus 1.4 mg/dl (2.5-4.9)
[2023-11-19] MEDS ORDERED: POTASSIUM PHOS 3 MMOL/1 ML INFUSION IV STA (11:02)
[2023-11-19] MEDS: MAGNESIUM SULFATE / D5W 1 GM/100 ML BAG IV SCH (11:26)
[2023-11-19] MEDS: POTASSIUM PHOSPHATE 24 MMOL in SODIUM CHLORIDE 0.9% 500 ML IV ONE (11:29)
--- NOTE | 2023-11-19 16:04 | Billing Data ---
Date of Service November 19, 2023 Coding Level of Care Code 20379 SUB INP/OBS CARE MIN
[2023-11-19] MEDS: NICOTINE 14 MG/24 HR PATCH TD SCH (19:27)
[2023-11-20] MEDS: ALBUTEROL HFA 8 GM INHALER INH PRN (02:30)
[2023-11-20 06:41] LABS: Hematocrit (blood only) 23.2 % (42.0-52.0); Hemoglobin 7.7 g/dl (14.0-18.0); Mean Corpuscular Hemoglobin 32.2 pg (25.0-34.0); Mean Corpuscular Hgb Conc 33.2 g/dL (32.0-36.0); Mean Corpuscular Volume 97.1 fL (80.0-100.0); Mean Platelet Volume 10.7 fL (9.4-12.4); Platelet Count 201 K/uL (130-400); RDW Coefficient of Variation 18.4 % (11.5-14.5); Red Blood Count 2.39 M/uL (4.70-6.10); White Blood Count 8.87 K/ul (4.8-10.8)
[2023-11-20 07:01] LABS: BUN Creatinine Ratio 6.8 (10-20); Calcium 7.9 mg/dl (8.6-10.3); Creatinine Clr Calc Pharmacy 61.6 ml/min; Est GFR (Non-African American) 58.6 ml/min; Magnesium 2.2 mg/dl (1.7-2.4); Phosphorus 2.1 mg/dl (2.5-4.9); Potassium 3.9 mmol/L (3.5-5.1)
--- NOTE | 2023-11-20 07:35 | Hospitalist Progress Note ---
Date of Service November 20, 2023 Assessment & Plan (1) EARLINE (acute kidney injury): (2) Acute pancreatitis: (3) Central pontine myelinolysis: (4) Fall: (5) Alcohol withdrawal: (6) Hypomagnesemia: (7) Hyperlipidemia: (8) Prediabetes: (9) Right shoulder pain: Plan Assessment: Alexei Adams is a 58 year old male with a PMHx of AUD, osmotic demyelination syndrome (central pontine myelinolysis), prediabetes, asthma, hypothyroidism, HTN, HLD, GERD, Hunter's esophagus, SUZI, allergic rhinitis, anxiety who was admitted on 11/14/23 for concerns of a fall and alcohol withdrawal. Normocytic Anemia -Hbg 8.8 on admission. S/P RBC transfusion (1 unit) on 11/15 -Most recent Hbg 7.7 (11/19) -Consider transfusion if hemoglobin continues to decline -FOBT positive on 11/16 -Concerning for GI bleed and/or malignancy, unclear if upper or lower in origin based on presentation -Consider consulting GI for EDG and/or colonoscopy -Consider SBP prophylaxis if symptoms change or worsen -No signs of active bleeding on physical exam. No upper GI symptoms. Clinical concern for lower GI bleed. 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 -Patient is limited historian and often falls asleep during history -Continue to monitor for changes in presentation -Continue with escalated thiamine Alcohol Use Disorder, chronic -History of admissions for alcohol withdrawal; he denies alcohol withdrawal seizures -Last drink on 11/12/23, Alcohol level WNL on arrival - Fall precautions - Seizure precautions - AWSS at risk protocol - RASS q4h - Communication order to notify provider for RASS >0 or AWSS >8 - Case management consulted as patient is open to discussing alcohol cessation/rehab - Continue folic acid 1 mg PO QAM and thiamine IV QAM daily Alcohol withdrawal - resolving -See AUD for plan Hyponatremia -In the context of AUD and malnutrition -History of central pontine myelinolysis, high risk for recurrence due to AUD, liver disease, and hypokalemia -Most recent: 135 (11/19) -Trend BMP Hypophosphorous -In the context of AUD and malnutrition -Most recent: 2.1 (11/19) -Trend BMP Acute Pancreatitis - resolving -No abdominal tenderness on physical exam -Lipase 1778 on arrival, 444 on 11/15. CT abd/pelvis 11/13: "Interval progression of the acute pancreatitis" -Continue to monitor Right shoulder pain - resolving -Shoulder pain is improving -Shoulder XR on 11/14/23: No fracture or dislocation within the right shoulder. The right clavicle is intact. Mild degenerative changes within the right shoulder. IMPRESSION: No fracture or dislocation within the right shoulder. -Continue Voltaren 1% 2g BID and ice packs as needed Severe Hepatic Steatosis, chronic -Identified on CT abd/pelvis 11/13: "Severe hepatic steatosis, unchanged." -Continue to trend total bilirubin, AST, ALT, alk phos Hypomagnesemia - resolved -In the context of AUD and malnutrition -Most recent: 2.2 (11/19) -Ordered Magnesium 1 mg 100 ml IV -Trend BMP Hypokalemia - resolved -In the context of AUD and malnutrition -K 2.7 on arrival, potassium 40mEq p.o. given -Currently 3.0, ordered Potassium Phosphorous 30 mmol IV -Trend BMP Abnormal EKG -Small, but real appearing Q waves present in inferior leads. - Troponin normal -Clinical significance undetermined -Consider echo if patient develops any symptoms -Recommend to follow up with PCP outpatient Diarrhea - resolving -Patient denies blood in stool and melena -FOBT positive (see anemia for plan) -PCR stool and C. difficile negative Hypothyroidism, chronic - Levothyroxine 125 Mcg -TSH 2.062 -Continue levothyroxine Hypertension, chronic - Valsartan 230 mg -Continue valsartan 230 mg PO QAM FEN: low fat diet Code status: full code DVT ppx: Heparin SQ Held home meds: N/A Consults: N/A consider psych consult Case management: Consulted as patient is open to discussing alcohol cessation/rehab, patient may require placement for discharge Dispo: med Admission and Anticipated Discharge Date Admission Date: November 14, 2023 Supervising Physician Co-Signing Physician Notes ATTESTATION I also saw the patient and confirmed mccauley portions of the history and exam. I agree with the impression and plan in the resident documentation, and as summarized below. Upon our exam this morning, patient's brother at bedside. He reports a general decline in overall status of the patient in the last 3-4 months. Patient was living with a significant other up until couple of weeks ago when she moved out. After this, sharper decline in overall functioning leading up to current hospitalization. EXAM 145/92, 94, 20, 36.3 Awake, not very conversational. No acute distress. Calm. Heart slightly tachycardic but regular Lungs clear, nonlabored respirations DATA Labs HgB 7.7 Na 135 P 2.1 IMPRESSION & PLAN Anemia, (+) FOB Altered mental status Alcohol use disorder Hyponatremia Suspect the anemia is multifactorial, chronic disease with myelosuppression secondary to chronic alcohol use, but there may be an element of GI bleed given (+) FOB Monitor CBC; could consider inpatient colonoscopy over outpatient given patient's unlikely outpatient follow-up Discussed with brother, not clear if patient's mentation will return to his previous baseline; sounds as if him living at home was marginal, supported by his significant other but now that she is not there, I am not sure that patient would be self sufficient to return home safely Additional per resident documentation Subjective Alexei Adams is a 58 year old male with a PMHx of AUD, osmotic demyelination syndrome (central pontine myelinolysis), prediabetes, asthma, hypothyroidism, HTN, HLD, GERD, Hunter's esophagus, SUZI, allergic rhinitis, anxiety who was admitted on 11/14/23 for concerns of a fall and alcohol withdrawal. Patient reports falling and striking his head and right shoulder on 11/14/23. He has associated right shoulder pain that is worse with movement and radiates down into his right hand. He is unsure if he also fell on 11/13/23. He states that he was drinking alcohol when he fell. He has a history of alcohol use disorder and has experienced alcohol withdrawal in the past, most recently was 1 month ago. He has returned to use since that time. He states that he doesn't have a reason for starting drinking again, and has been drinking "4 drinks of rum per day." He stopped drinking 2 days prior to admission because he ran out of alcohol. He denies a history of alcohol withdrawal seizures. He denies other recreational drug use. 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 No recent changes in medication, but did not take his home meds for 2 days prior to admission. Patient endorsed confusion, fatigue, and right shoulder pain/tingling. Patient denied fever, chills, night-sweats, body aches, dizziness, lightheadedness, GRANGER, chest pain, SOB, cough, pleuritic CP, abdominal pain, nausea, vomiting, hematemesis, no blood in urine/stool, melena, and change in urinary/bowel. In the ED, vitals were notable for tachycardia and hypotension. Initial lab workup was notable for: hemoglobin 8.8, hematocrit 26.1, sodium of 132, potassium 2.7, chloride 89, BUN 58, creatinine 5.01, magnesium 1.4. total bilirubin 1.8, direct bilirubin 0.8, AST 101, ALT 33, alk phos 183, lipase 1778, procalcitonin 3.85. Urine was positive for 1+ protein, 1+ ketone, 1+ glucose, trace blood, hyaline casts, and granular casts. Ethyl alcohol was <10. CXR, head CT, shoulder XR, and abd/pelvic CT were unremarkable. He received: NSS 1000 mL IV, NSS with 20mEq IV x 1, Potassium supplementation 40mEq p.o., Magnesium 1 g IV, Folic acid 1 mg IV, and Thiamine 100 mg IV. Hospitalist service was then consulted for admission. 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 * Last night, he got 1mg Ativan PO at 00:33 and a second dose of 1mg Ativan PO at 02:00 * He had a "drop in orientation" following administration of the medication * They report episodes of hyperventilation with normal SPO2 * During the day he is AOx3, but at night he is AOx2 Patient was somnolent during H&P - he was unable to stay awake during conversation. Brother was at bedside. He reports that the patient has been experiencing a gradual decline for the past 4-5, as he has had increased incontinence, loss of appetite, and has been drinking more alcohol. Per brother, the patient lives in a home by himself. Review of Systems Review of Systems: See HPI, otherwise negative Physical Exam Physical Exam: Constitutional: Well-appearing, no acute distress. Patient asleep in bed in incontinence briefs. He is restless in sleep and snoring. Breakfast uneaten on tray. HEENT: NCAT. CV: Regular rhythm, no murmur appreciated, extremities well-perfused, no LE edema. Resp: Patient snoring with mouth open. No wheezes/rales/rhonchi appreciated. GI: Soft, nondistended, BS normoactive MSK: no gross deformities appreciated Skin: warm, dry, no rash appreciated Neuro: Unable to stay awake during interview for more than a few seconds. No focal neurologic deficit appreciated Results & Data Results & Data Vital Signs (Past 12 Hours) Vital Signs Temp Pulse Resp BP BP Pulse Ox O2 Del Method 11/20/23 02:33 92 H 16 95 Room Air 11/20/23 02:12 97.7 F 98 H 28 H 154/100 H 95 Room Air 11/20/23 00:23 98.6 F 95 H 18 136/87 94 Room Air Laboratory Results Abnormal Lab Results 11/20/23 06:05 WBC 8.87 RBC 2.39 L Hgb 7.7 L Hct 23.2 L MCV 97.1 MCH 32.2 MCHC 33.2 RDW Std Deviation 65.0 H RDW Coeff of Joshua 18.4 H Plt Count 201 MPV 10.7 Sodium 135 L Potassium 3.9 Chloride 102 Carbon Dioxide 27 Anion Gap 6 BUN 9 Creatinine 1.32 Est Cr Clr Drug Dosing 61.6 Est GFR ( Amer) 68.0 Est GFR (Non-Af Amer) 58.6 BUN/Creatinine Ratio 6.8 L Glucose 99 Calcium 7.9 L Phosphorus 2.1 L Magnesium 2.2 Medications Administered Current Inpatient Medications Albuterol (Albuterol Hfa 8 Gm Inhaler) 1 puffs INH Q4 PRN PRN Reason: Shortness Of Breath Stop: 12/14/23 19:54 Last Admin: 11/20/23 02:30 Dose: 1 puffs Atorvastatin Calcium (Atorvastatin 40 Mg Tab) 40 mg PO QPM NAEEM Stop: 12/14/23 20:59 Last Admin: 11/19/23 20:05 Dose: 40 mg Diclofenac Sodium (Diclofenac Sod 1% Gel 100 Gm Tube) 2 gm EXT QID NAEEM; Protocol Stop: 12/16/23 08:59 Last Admin: 11/20/23 08:53 Dose: 2 gm Ezetimibe (Ezetimibe 10 Mg Tab) 10 mg PO HS [facility] Stop: 12/14/23 20:59 Last Admin: 11/19/23 20:05 Dose: 10 mg Escitalopram Oxalate (Escitalopram Oxalate 20 Mg Tab) 20 mg PO QPM [facility] Stop: 12/14/23 20:59 Last Admin: 11/19/23 20:05 Dose: 20 mg Folic Acid (Folic Acid 1 Mg Tab) 1 mg PO QAM [facility] Stop: 12/15/23 08:59 Last Admin: 11/20/23 08:53 Dose: 1 mg Lorazepam 1 mg/ Syringe 1 mls @ 2 mls/min IV UD PRN; Protocol PRN Reason: EtOH Withdrawal AWSS Score 6,7 Stop: 12/15/23 14:59 Lorazepam 2 mg/ Syringe 2 mls @ 2 mls/min IV UD PRN; Protocol PRN Reason: EtOH Withdrawal AWSS Score 8,9 Stop: 12/15/23 14:59 Lorazepam 3 mg/ Syringe 3 mls @ 2 mls/min IV ONCE PRN; Protocol PRN Reason: EtOH Withdrawal AWSS Score 10+ Thiamine HCl 250 mg/ Sodium (Chloride) 52.5 mls @ 210 mls[place] [place]: 12/20/23 08:59 Last Infusion: 11/20/23 09:48 Dose: Infused Levothyroxine Sodium (Levothyroxine Sodium 125 Mcg Tablet) [facility] Stop: 12/15/23 06:29 Last Admin: 11/20/23 06:23 Dose: 125 mcg Loperamide HCl (Loperamide Hcl 2 Mg Cap) 2 mg PO Q2H PRN PRN Reason: loose stool Stop: 12/14/23 19:54 Last Admin: 11/20/23 00:34 Dose: 2 mg Lorazepam (Lorazepam 1 Mg Tab) 1 mg PO UD PRN; Protocol PRN Reason: EtOH Withdrawal AWSS Score 6,7 Stop: 12/15/23 14:59 Last Admin: 11/20/23 02:25 Dose: 1 mg Lorazepam (Lorazepam 1 Mg Tab) 3 mg PO ONCE PRN; Protocol PRN Reason: EtOH Withdrawal AWSS Score 10 & above Lorazepam (Lorazepam 1 Mg Tab) 2 mg PO UD PRN; Protocol PRN Reason: EtOH Withdrawal AWSS Score 8,9 Stop: 12/15/23 14:59 Miscellaneous (Remove Nicoderm Patch) 1 each N/A DAILY@0859 [facility] Stop: 12/20/23 08:58 Last Admin: 11/20/23 09:48 Dose: 1 each Nicotine (Nicotine 14 Mg/24 Hr Patch) 1 patch TD QAM [facility] Stop: 12/19/23 18:14 Last Admin: 11/20/23 09:48 Dose: 1 patch Ondansetron HCl (Ondansetron Inj 2 Mg/Ml 2 Ml Vial) 4 mg IV Q6H PRN PRN Reason: Nausea Stop: 12/14/23 19:54 Last Admin: 11/14/23 21:06 Dose: 4 mg Pantoprazole Sodium (Pantoprazole 40 Mg Tab) 40 mg PO BID [facility] Stop: 12/14/23 20:59 Last Admin: 11/20/23 08:53 Dose: 40 mg Resident Supervision Co-Signing Physician Notes I personally spoke to and examined the patient and then discussed the findings/assessment and plan with the medical student and attending physician. Pt stable this AM. No new changes. Pt appears uncomfortable this AM on exam. RRR, no murmur noted. Lung CTA. Breathing labored/irregular. Abdominal distended but non tender. AMS/alcohol withdrawal: Concern for alcoholic dementia/Wernicke's. Unsure of what cognitive abilities pt will regain vs. what is his new baseline. Lab work stable. Will continue to monitor for symptomatic improvement- depending on pt's degree of improvement, pt may need placement for some type of assisted living situation (as pt currently lives at home alone). Anemia: suspect multifactorial in the setting of FOBT + and chronic alcohol use. Consider GI consult for inpatient EGD/colonoscopy if worsens. Judy Dong, DO Family Medicine, PGY-2 Resident Activity Tracking Resident Involvement: Resident Care Provided Care Provided: Adult Hospital Medicine (5) Alcohol withdrawal Complication of substance-induced condition: uncomplicated Qualified Code(s): F10.930 - Alcohol use, unspecified with withdrawal, uncomplicated
[2023-11-20] MEDS: THIAMINE HCL 250 MG in SODIUM CHLORIDE 0.9% 50 ML IV SCH (08:59)
[2023-11-21 00:23] LABS: Amobarbital, Urine Conf NEGATIVE ng/mL (<100); Butalbital, Urine NEGATIVE ng/mL (<100); Pentobarbital, Urine Conf NEGATIVE ng/mL (<100); Phenobarbital, Urine 3050 ng/mL (<100); Secobarbital, Urine Conf NEGATIVE ng/mL (<100)
[2023-11-21 07:43] LABS: Hematocrit (blood only) 22.9 % (42.0-52.0); Hemoglobin 7.5 g/dl (14.0-18.0); Mean Corpuscular Hemoglobin 31.9 pg (25.0-34.0); Mean Corpuscular Hgb Conc 32.8 g/dL (32.0-36.0); Mean Corpuscular Volume 97.4 fL (80.0-100.0); Mean Platelet Volume 10.8 fL (9.4-12.4); Platelet Count 200 K/uL (130-400); RDW Coefficient of Variation 18.5 % (11.5-14.5); RDW Standard Deviation 65.8 fL (36.4-46.3); Red Blood Count 2.35 M/uL (4.70-6.10); White Blood Count 9.43 K/ul (4.8-10.8)
[2023-11-21 07:54] LABS: BUN Creatinine Ratio 6.7 (10-20); Calcium 7.8 mg/dl (8.6-10.3); Creatinine Clr Calc Pharmacy 68.3 ml/min; Est GFR (Non-African American) 66.5 ml/min; Potassium 3.3 mmol/L (3.5-5.1)
--- NOTE | 2023-11-21 08:09 | Hospitalist Progress Note ---
Date of Service November 21, 2023 Assessment & Plan (1) EARLINE (acute kidney injury): (2) Acute pancreatitis: (3) Central pontine myelinolysis: (4) Fall: (5) Alcohol withdrawal: (6) Hypomagnesemia: (7) Hyperlipidemia: (8) Prediabetes: (9) Right shoulder pain: Plan Alexei Adams is a 58 year old male with a PMHx of AUD, osmotic demyelination syndrome (central pontine myelinolysis), asthma, hypothyroidism, HTN, HLD, GERD, Hunter's esophagus, and SUZI, who presented following a fall, and was admitted due to concerns of alcohol withdrawal. Normocytic Anemia -Hbg 8.8 on admission. Baseline 10-13. -Hbg has fluctuated between 7.5 and 8.5 since admission. -Positive FOBT. -S/P RBC transfusion (1 unit) on 6.6 * Trend with CBC * Continue to monitor for sings of bleeding on physical exam * Consider transfusion if hemoglobin continues to decline * Consider SBP prophylaxis if symptoms change or worsen Positive FOBT -No signs of active bleeding on physical exam. No upper GI symptoms. Clinical concern for lower GI bleed. -Last Colonoscopy in 2018, path report showed "one fragment of tubular adenoma". Patient was agreeable to GI consult and the potential need for EDG and/or colonoscopy. -Appreciate GI recommendations. Patient declined EDG. * Continue Pantoprazole 40 mg BID. 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 * Continue to monitor for changes in presentation * Continue with escalated thiamine * Case management consulted for potential need of discharge placement Alcohol Use Disorder, chronic -History of admissions for alcohol withdrawal; he denies alcohol withdrawal seizures -Last drink on 11/12/23, Alcohol level WNL on arrival * Fall precautions, Seizure precautions, AWSS at risk protocol * Communication order to notify provider for RASS >0 or AWSS >8 * RASS q4h * Case management consulted as patient is open to discussing alcohol cessation/rehab * Continue folic acid 1 mg PO QAM and thiamine IV QAM daily Alcohol withdrawal - resolving -See AUD Hyponatremia -In the context of AUD and malnutrition -Sodium has fluctuated between 132 and 135 since admission. * Trend BMP Acute Pancreatitis - resolving -No abdominal tenderness on physical exam -Lipase 1778 on arrival, 444 on 11/15. CT abd/pelvis 11/13: "Interval progression of the acute pancreatitis" * Continue to monitor for changes Right shoulder pain - resolving -Shoulder pain is improving -Shoulder XR on 11/14/23: No fracture or dislocation within the right shoulder. The right clavicle is intact. Mild degenerative changes within the right shoulder. IMPRESSION: No fracture or dislocation within the right shoulder. * Continue Voltaren 1% 2g BID and ice packs as needed Severe Hepatic Steatosis, chronic -Identified on CT abd/pelvis 11/13: "Severe hepatic steatosis, unchanged." Hypophosphorous - resolving -In the context of AUD and malnutrition -Trending upward Hypomagnesemia - resolved -In the context of AUD and malnutrition -Mg 1.4 on arrival Hypokalemia - resolved -In the context of AUD and malnutrition -K 2.7 on arrival Abnormal EKG -Small, but real appearing Q waves present in inferior leads. -Troponin wnl -Clinical significance undetermined * Consider echo if patient develops any symptoms * Recommend to follow up with PCP Diarrhea - resolving -Patient denies blood in stool and melena -PCR stool and C. difficile negative Hypothyroidism, chronic - Levothyroxine 125 Mcg -TSH 2.062 * Continue levothyroxine Hypertension, chronic - Valsartan 230 mg * Hold valsartan FEN: low fat diet Code status: full code DVT ppx: SCDs (not wearing) Held home meds: Valsartan Consults: GI Case management: Consulted as patient is open to discussing alcohol cessation/rehab. Patient is not eligible for rehabilitation due to lack of insurance. Dispo: med Admission and Anticipated Discharge Date Admission Date: November 14, 2023 Supervising Physician Co-Signing Physician Notes ATTESTATION I also saw the patient and confirmed mccauley portions of the history and exam. I also personally discussed the case with the GI outplacement consultant. I agree with the impression and plan in the documentation, and as summarized below. EXAM 142/88, 77, 16, 36.9, 95% on room air Awake, not very conversational. No acute distress. Calm. Heart regular rate and rhythm Lungs clear, nonlabored respirations DATA Labs HgB 7.5 Na 135 k 3.3 IMPRESSION & PLAN Anemia, (+) FOB History of tubular adenoma, repeat colonoscopy lost to follow-up hemoglobin Altered mental status Alcohol use disorder Hyponatremia Hemoglobin continues to fall; consult gastroenterology for potential colonoscopy and/or EGD He is already been transfused during this admission; recheck CBC in a.m., consider repeat transfusion if needed. Mentation is somewhat improved today, but still not at baseline; I still question if he could be self-sufficient living by himself at home. Additional per resident documentation Subjective Overnight events: "Completely oriented overnight" but got every 30 minutes to urinate. 96 ml on bladder scan. Patient is awake and alert. He states that he was urinating frequently because he was drinking a lot of water and soda yesterday. He reports that he saw his older brother Pat yesterday. He has no concerns today and is interested in going home. He denies weakness, abdominal pain, nausea, and diarrhea. Review of Systems Review of Systems: See HPI, otherwise negative Physical Exam Physical Exam: Constitutional: No acute distress. Patient in bed in incontinence briefs. HEENT: NCAT. CV: Regular rhythm, no murmur appreciated, extremities well-perfused, no LE edema. Resp: CTAB. No wheezes/rales/rhonchi appreciated. GI: Soft, nondistended, BS normoactive, no tenderness. MSK: no gross deformities appreciated Skin: warm, dry, no rash appreciated Neuro: Alert and oriented to person and place. No focal neurologic deficit appreciated Results & Data Results & Data Vital Signs (Past 12 Hours) Vital Signs Temp Pulse Resp BP Pulse Ox O2 Del Method 11/20/23 20:09 97.9 F 92 H 18 158/99 H 97 Room Air 11/20/23 19:55 Room Air Laboratory Results Abnormal Lab Results 11/14/23 11/21/23 Unknown 06:53 WBC 9.43 RBC 2.35 L Hgb 7.5 L Hct 22.9 L MCV 97.4 MCH 31.9 MCHC 32.8 RDW Std Deviation 65.8 H RDW Coeff of Joshua 18.5 H Plt Count 200 MPV 10.8 Sodium 135 L Potassium 3.3 L Chloride 104 Carbon Dioxide 24 Anion Gap 7 BUN 8 Creatinine 1.19 Est Cr Clr Drug Dosing 68.3 Est GFR ( Amer) 77.0 Est GFR (Non-Af Amer) 66.5 BUN/Creatinine Ratio 6.7 L Glucose 89 Calcium 7.8 L Urine Butalbital NEGATIVE Urine Amobarbital NEGATIVE Urine Pentobarbital NEGATIVE Urine Phenobarbital 3050 H Urine Secobarbital NEGATIVE Drug Screen Comment SEE NOTE Medications Administered Current Inpatient Medications Albuterol (Albuterol Hfa 8 Gm Inhaler) 1 puffs INH Q4 PRN PRN Reason: Shortness Of Breath Stop: 12/14/23 19:54 Last Admin: 11/20/23 02:30 Dose: 1 puffs Atorvastatin Calcium (Atorvastatin 40 Mg Tab) 40 mg PO QPM [facility] Stop: 12/14/23 20:59 Last Admin: 11/20/23 20:08 Dose: 40 mg Diclofenac Sodium (Diclofenac Sod 1% Gel 100 Gm Tube) 2 gm EXT QID [facility]; Protocol Stop: 12/16/23 08:59 Last Admin: 11/21/23 12:15 Dose: Not Given Ezetimibe (Ezetimibe 10 Mg Tab) 10 mg PO [facility] Stop: 12/14/23 20:59 Last Admin: 11/20/23 20:08 Dose: 10 mg Escitalopram Oxalate (Escitalopram Oxalate 20 Mg Tab) 20 mg PO QPM [facility] Stop: 12/14/23 20:59 Last Admin: 11/20/23 20:08 Dose: 20 mg Folic Acid (Folic Acid 1 Mg Tab) 1 mg PO QAM [facility] Stop: 12/15/23 08:59 Last Admin: 11/21/23 08:22 Dose: 1 mg Thiamine HCl 250 mg/ Sodium (Chloride) 52.5 mls @ 210 mls/hr IV QAM [facility] Stop: 12/20/23 08:59 Last Infusion: 11/21/23 08:42 Dose: Infused Levothyroxine Sodium (Levothyroxine Sodium 125 Mcg Tablet) [facility] Stop: 12/15/23 06:29 Last Admin: 11/21/23 05:28 Dose: 125 mcg Loperamide HCl (Loperamide Hcl 2 Mg Cap) 2 mg PO Q2H PRN PRN Reason: loose stool Stop: 12/14/23 19:54 Last Admin: 11/20/23 00:34 Dose: 2 mg Lorazepam (Lorazepam 1 Mg Tab) 1 mg PO UD PRN; Protocol PRN Reason: EtOH Withdrawal AWSS Score 6,7 Stop: 12/15/23 14:59 Last Admin: 11/20/23 02:25 Dose: 1 mg Lorazepam (Lorazepam 1 Mg Tab) 3 mg PO ONCE PRN; Protocol PRN Reason: EtOH Withdrawal AWSS Score 10 & above Lorazepam (Lorazepam 1 Mg Tab) 2 mg PO UD PRN; Protocol PRN Reason: EtOH Withdrawal AWSS Score 8,9 Stop: 12/15/23 14:59 Miscellaneous (Remove Nicoderm Patch) 1 each N/A DAILY@0859 [facility] Stop: 12/20/23 08:58 Last Admin: 11/21/23 08:21 Dose: 1 each Nicotine (Nicotine 14 Mg/24 Hr Patch) 1 patch TD QAM [facility] Stop: 12/19/23 18:14 Last Admin: 11/21/23 08:22 Dose: 1 patch Ondansetron HCl (Ondansetron Inj 2 Mg/Ml 2 Ml Vial) 4 mg IV Q6H PRN PRN Reason: Nausea Stop: 12/14/23 19:54 Last Admin: 11/14/23 21:06 Dose: 4 mg Pantoprazole Sodium (Pantoprazole 40 Mg Tab) 40 mg PO BID [facility] Stop: 12/14/23 20:59 Last Admin: 11/21/23 08:22 Dose: 40 mg Resident Supervision Co-Signing Physician Notes I personally spoke to and examined the patient and then discussed the findings/assessment and plan with the medical student and attending physician. Pt awake and alert this AM. He expressed interest to me about attending alcohol rehab upon discharge. Pt well appearing. Clinically well perfused, non labored breathing. A+Ox4. Alcohol use disorder: Pt stable from a withdrawal standpoint. Interested in alcohol rehab upon discharge. Anemia: multifactorial- components of myelosuppression and blood loss (as FOBT+). GI consulted for EGD but pt refused. Will continue to follow Hgb. Judy Dong, Family Medicine, PGY-2 Resident Activity Tracking Resident Involvement: Resident Care Provided Care Provided: Adult Hospital Medicine (5) Alcohol withdrawal Complication of substance-induced condition: uncomplicated Qualified Code(s): F10.930 - Alcohol use, unspecified with withdrawal, uncomplicated
[2023-11-21] MEDS: POTASSIUM CHLORIDE CRTAB 20 MEQ TABCR PO STA (09:56)
--- NOTE | 2023-11-21 12:27 | Gastrointestinal Consultation ---
Date of Consultation November 21, 2023 Assessment & Plan (1) Acute pancreatitis: (2) Alcohol abuse: (3) Anemia: Plan Patient is a 58 y.o. male with a history of alcohol use disorder admitted after sustaining a fall at home admitted with acute pancreatitis and anemia with heme positive stool. Diff dx: PUD vs esophagitis vs varices vs other. 1. Recommended diagnostic EGD but patient refused testing. 2. I counseled risks of ongoing alcohol use and risk of further liver disease/ decompensation. He states he is interested in ETOH cessation and therefore I recommend inpatient alcohol treatment facility and he is considering. 3. Continue Pantoprazole 40 mg BID. 4. Continue supportive care. Thank you for allowing us to participate in the care of this patient. If you have any questions or concerns, please do not hesitate to contact us. Supervising Physician Co-Signing Physician Notes Agree with KALEN Bell as above Interviewed and examined patient and agree with above Abd: Soft, NT, ND, +BS Continue current therapy and supportive care He will need an EGD for Variceal evaluation and anemia, however, he is adamantly refusing at present History of Present Illness Reason for Consultation: Heme positive stool, anemia Requesting Physician: Dr. Dong Attending Physician: Joshua Iglesias, History of Present Illness Patient is a 58 y.o. male with a history of ETOH use disorder and associated fatty liver with possible early cirrhotic change admitted after sustaining a fall at home. 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 Endorses 1 pint of hard liquor daily on average. Has a history of ETOH seizures as well but no current withdrawal sx. GI is being consulted in regard to worsened anemia and heme positive stool. Hemoglobin has dropped from 8.4 to 7.5. Denies any abdominal pain, nausea or vomiting or overt GIB. Despite the lack of GI symptoms, he did have an elevated lipase on admission and abnormal CT of the pancreas consistent with acute pancreatitis. His diet has been advanced to a low fat diet which he is tolerating well. Patient has been given 1 unit of PRBCs. Allergies Allergy/AdvReac Type Severity Reaction Status Date / Time Sulfa (Sulfonamide Allergy Intermediate HIVES Verified 11/14/23 16:34 Antibiotics) MARGARET Inhibitors AdvReac Intermediate COUGH Verified 11/14/23 16:34 amlodipine AdvReac Intermediate FATIGUE Verified 11/14/23 16:34 clonidine AdvReac Intermediate HEADACHES Verified 11/14/23 16:34 varenicline [From Chantix] AdvReac Intermediate JITTERY/SHA Verified 11/14/23 16:34 [facility] Home Medications Medication Instructions Recorded Confirmed Type ezetimibe 10 mg tablet 10 mg PO HS 07/29/21 11/14/23 History atorvastatin 40 mg tablet 40 mg PO QPM #90 tabs 09/01/22 11/14/23 Rx escitalopram oxalate 20 mg tablet 20 mg PO QPM #90 tabs 06/09/23 11/14/23 Rx levothyroxine 125 mcg tablet 125 mcg PO QAM #30 tabs 08/21/23 11/14/23 Rx omeprazole 40 mg capsule,delayed 40 mg PO BID #60 caps 08/21/23 11/14/23 Rx release albuterol sulfate 90 mcg/actuation 1 puff inhalation Q4 PRN sob 10/17/23 11/14/23 History aerosol inhaler loperamide 2 mg capsule 2 mg PO Q2H PRN loose stool #30 10/20/23 11/14/23 Rx caps phenobarbital 30 mg tablet 30 mg PO Q24H #1 tab 10/20/23 11/14/23 Rx folic acid 1 mg tablet 1 mg PO QAM 11/14/23 11/14/23 History furosemide 40 mg tablet 40 mg PO QAM 11/14/23 11/14/23 History valsartan 320 mg tablet 320 mg PO QAM 11/14/23 11/14/23 History Patient History Medical History Alcohol withdrawal Hypothyroidism GERD (gastroesophageal reflux disease) UTI (urinary tract infection) Thrombocytopenia Acute dehydration Anxiety Hypothyroidism GERD (gastroesophageal reflux disease) Surgical History S/P wrist surgery R WRIST REPAIR OF TORN TENDON Hx of vasectomy History of colonoscopy History of esophagogastroduodenoscopy (EGD) History of appendectomy History of tooth extraction WISDOM TEETH History of tonsillectomy S/P LASIK surgery of both eyes History of lumbar spinal fusion Family History Father Alcohol abuse COPD (chronic obstructive pulmonary disease) Hypertension Reported family history of early sudden deaths Mother Hypertension Hyperlipidemia Brother Hypertension Sister Graves' disease Social History Smoking Status: Current every day smoker Tobacco Type: Cigarettes Cigarettes Per Day: 1 ppd; Second Hand Exposure: No; Do You Dip or Chew Tobacco: No; Tobacco Cessation Education Requested by Patient: No Hx Alcohol Use: Yes Alcohol type: hard liquor Hx Substance Use: No Preferred Language: Italian Visual Impairment: Limited Hearing Ability: Normal Teletype Mechanic Required: No Beliefs That Will Affect Care: None marital status: Current Living Situation: Significant Other Current Living Situation Comment: LIVES WITH GIRLFRIEND current occupational status: employed current occupation: [employer] Other Information That Helps Us Care for You: No Feels Safe at Home: Yes Safety Concerns: Feels Safe At This Time Childhood Exposure to Second-Hand Smoke: No caffeine: Yes Dental Care, Regularly: Yes Physical Activity Frequency: Does not Exercise Seatbelt Use: always Sunscreen Use: No Assistive Devices: Glasses Review of Systems Constitutional: no problem reported Gastrointestinal: as per Subjective / HPI Physical Exam Constitutional: WD/WN, vitals as above Respiratory: normal respiratory effort, lungs clear to auscultation Cardiovascular: RRR, no murmur, no edema Gastrointestinal (Abdomen): Inspection/Auscultation: normal bowel sounds Percussion/Palpation: abdomen soft; abdomen nontender, no guarding, abdomen not rigid and no ascites Musculoskeletal: Extremities: + hand abnormality Neurologic: +tremor Psychiatric: A+Ox3, euthymic affect Results & Data Vital Signs (Past 12 Hours) Vital Signs Temp Pulse Resp BP Pulse Ox O2 Del Method 11/21/23 08:20 36.9 C 77 16 142/88 H 95 Room Air PG Care Time/CCT Total # of Minutes Spent Total Time Spent with Patient: Total time spent is greater than 50% in coordination of care (as documented) at patient's floor/unit and/or counseling patient: Coding Level of Care Code 93156 IN/OBS CONSULT LVL 4,60M Diagnoses Acute pancreatitis K85.90 Alcohol abuse F10.10 Anemia D64.9
--- NOTE | 2023-11-22 07:05 | Hospitalist Progress Note ---
Date of Service November 22, 2023 Assessment & Plan (1) EARLINE (acute kidney injury): (2) Acute pancreatitis: (3) Central pontine myelinolysis: (4) Fall: (5) Alcohol withdrawal: (6) Hypomagnesemia: (7) Hyperlipidemia: (8) Prediabetes: (9) Right shoulder pain: Plan Pt is a 58 yo male with a PMHx of AUD, osmotic demyelination syndrome (central pontine myelinolysis), asthma, hypothyroidism, HTN, HLD, GERD, Hunter's esophagus, and SUZI, who presented following a fall, and was admitted due to concerns of alcohol withdrawal. Anemia - Hbg 8.8 on admission. 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, acute GI blood loss - s/p 1u pRBC transfusion (11/15) - Hgb appropriate after transfusion but then has continued to downtrend- high concern for continued GI bleeding of unknown source - GI consulted for possibility of inpt scopes (EGD to r/o bleeding ulcers, etc; colonoscopy d/t hx of tubular adenoma w/o appropriate f/u); originally pt had deferred scopes but after further discussion is now agreeable: GI re-engaged for scope procedures Altered mental status - resolved; history of osmotic demyelination syndrome - pt originally was limited historian and often fell asleep during history which was 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 - pt's mentation has since clear and he appears to be at baseline now Alcohol use disorder - history of admissions for alcohol withdrawal; pt denies alcohol withdrawal seizures - last drink on 11/12/23; alcohol level neg on arrival - continue fall precautions - continue folate 1 mg, thiamine 100 mg daily - CM consulted to discuss rehab options; pt has applied for MA and has been open to discuss D&A rehab (although he is still opting to go home upon d/c) Alcohol withdrawal- resolved Hyponatremia/hypomagnesemia/hypophosphorous/hypokalemia- resolved - in the context of AUD and malnutrition - trend BMP, Mg, and P for stability Acute pancreatitis - resolved - no abdominal tenderness on physical exam; lipase 1778 on arrival, downtredned to 444 - CTAP 11/13: interval progression of the acute pancreatitis Right shoulder pain - resolved - shoulder XR on 11/13: no fracture or dislocation - continue Voltaren 1% 2g BID and ice packs as needed Severe hepatic steatosis- stable - CTAP 11/13: unchanged severe hepatic steatosis Abnormal EKG - small Q waves present in inferior leads; troponin neg - consider echo if patient develops any symptoms - recommend outpatient follow up with PCP Diarrhea- resolved - pt denies blood in stool - PCR stool and C. difficile negative Hypothyroidism - TSH 2.062 upon admission - continue levothyroxine 125 mcg daily Hypertension - will restart home valsartan 320mg after planned procedures tomorrow FEN: low fat diet Code: full DVT ppx: SCDs (which he is not wearing); no chemical ppx d/t ongoing bleeding Consults: GI Dispo: med/surg Admission and Anticipated Discharge Date Admission Date: November 14, 2023 Supervising Physician Co-Signing Physician Notes ATTESTATION I also saw the patient and confirmed mccauley portions of the history and exam. I agree with the impression and plan in the documentation, and as summarized below. I reviewed with the patient the need for EGD and colonoscopy to locate any potential sites of bleeding, especially with his known history of a tubular adenoma. While he declined yesterday, he has reconsidered; he tells me he is thinking a bit more clearly today and desires to have the test done while he is here. EXAM 139/70, 94, 22, 37 C, 100-pecent on room air Awake, not very conversational. No acute distress. Calm. Heart regular rate and rhythm Lungs clear, nonlabored respirations DATA Labs HgB 7.7 Na 134 IMPRESSION & PLAN Anemia, (+) FOB History of tubular adenoma, repeat colonoscopy lost to follow-up hemoglobin Altered mental status Alcohol use disorder Hyponatremia Hemoglobin stable today Willing to undergo endoscopy; will reach out to gastroenterology Follow daily CBC His overall mentation today seems to be the best it has since admission Additional per resident documentation Subjective Pt alert and oriented this AM. He has no new concerns. He is unsure of why he refused the EGD recommendation made by GI yesterday. Review of Systems Review of Systems: As per HPI Physical Exam Physical Exam: Constitutional: ill appearing, no acute distress HEENT: normocephalic, no conjunctival injection CV: clinically well perfused Respiratory: no increased work of breathing MSK: no gross deformities noted Skin: warm, dry, no rashes Neuro: alert, oriented, no FND noted Results & Data Results & Data Vital Signs (Past 12 Hours) Vital Signs Temp Pulse Resp BP Pulse Ox O2 Del Method 11/21/23 21:21 97.5 F L 98 H 18 152/96 H 100 Room Air 11/21/23 21:20 Room Air Resident Activity Tracking Resident Involvement: Resident Care Provided Care Provided: Adult Hospital Medicine (5) Alcohol withdrawal Complication of substance-induced condition: uncomplicated Qualified Code(s): F10.930 - Alcohol use, unspecified with withdrawal, uncomplicated
[2023-11-22 08:06] LABS: Hematocrit (blood only) 24.1 % (42.0-52.0); Hemoglobin 7.7 g/dl (14.0-18.0); Mean Corpuscular Hemoglobin 31.4 pg (25.0-34.0); Mean Corpuscular Volume 98.4 fL (80.0-100.0); Mean Platelet Volume 11.1 fL (9.4-12.4); Platelet Count 209 K/uL (130-400); RDW Coefficient of Variation 18.2 % (11.5-14.5); RDW Standard Deviation 64.8 fL (36.4-46.3); Red Blood Count 2.45 M/uL (4.70-6.10); White Blood Count 10.14 K/ul (4.8-10.8)
[2023-11-22 08:13] LABS: Calcium 7.9 mg/dl (8.6-10.3); Creatinine Clr Calc Pharmacy 71.9 ml/min; Est GFR (Non-African American) 70.8 ml/min; Potassium 3.8 mmol/L (3.5-5.1)
[2023-11-22] MEDS: LAVAGE SOLUTION 4000ML PO ONE (18:39)
[2023-11-23] MEDS: THIAMINE HCL 100 MG TAB PO SCH (07:36)
--- NOTE | 2023-11-23 08:29 | Anesthesiology Consultation ---
Date of Service November 23, 2023 Assessment & Plan Chart Review Chart Review: Acceptable Risk for Surgery, Patient NOT seen in Pre Admission Testing and data entry associate initiated Consults Requested none Proposed Anesthesia Anesthesia Type: MAC History Surgery Operation Date: 11/23/23 16:30 Proposed Procedures p Colonoscopy EGD Dr. Barry Horton Case, DO Height/Weight Height: 5 ft 7 in Weight: 81.4 kg Allergies Allergy/AdvReac Type Severity Reaction Status Date / Time Sulfa (Sulfonamide Allergy Intermediate HIVES Verified 11/14/23 16:34 Antibiotics) MARGARET Inhibitors AdvReac Intermediate COUGH Verified 11/14/23 16:34 amlodipine AdvReac Intermediate FATIGUE Verified 11/14/23 16:34 clonidine AdvReac Intermediate HEADACHES Verified 11/14/23 16:34 varenicline [From Chantix] AdvReac Intermediate JITTERY/SHA Verified 11/14/23 16:34 KES Medications Home Medications Medication Instructions Recorded Confirmed Last Taken ezetimibe 10 mg tablet 10 mg PO HS 07/29/21 11/14/23 10/16/23 atorvastatin 40 mg tablet 40 mg PO QPM #90 tabs 09/01/22 11/14/23 10/16/23 escitalopram oxalate 20 mg tablet 20 mg PO QPM #90 tabs 06/09/23 11/14/23 10/16/23 levothyroxine 125 mcg tablet 125 mcg PO QAM #30 tabs 08/21/23 11/14/23 10/16/23 omeprazole 40 mg capsule,delayed 40 mg PO BID #60 caps 08/21/23 11/14/23 10/16/23 release albuterol sulfate 90 mcg/actuation 1 puff inhalation Q4 PRN sob 10/17/23 11/14/23 10/16/23 aerosol inhaler loperamide 2 mg capsule 2 mg PO Q2H PRN loose stool #30 10/20/23 11/14/23 Unknown caps phenobarbital 30 mg tablet 30 mg PO Q24H #1 tab 10/20/23 11/14/23 Unknown folic acid 1 mg tablet 1 mg PO QAM 11/14/23 11/14/23 Unknown furosemide 40 mg tablet 40 mg PO QAM 11/14/23 11/14/23 Unknown valsartan 320 mg tablet 320 mg PO QAM 11/14/23 11/14/23 Unknown Active Medications Generic Name Dose Route Start Last Admin Trade Name Freq PRN Reason Stop Dose Admin Albuterol 1 puffs 11/14/23 19:55 11/20/23 02:30 Albuterol Hfa 8 Gm Inhaler INH 12/14/23 19:54 1 puffs Q4 PRN Administration Shortness Of Breath Atorvastatin Calcium 40 mg 11/14/23 21:00 11/22/23 21:30 Atorvastatin 40 Mg Tab PO 12/14/23 20:59 40 mg QPM NAEEM Administration Diclofenac Sodium 2 gm 11/16/23 09:00 11/23/23 07:37 Diclofenac Sod 1% Gel 100 Gm Tube EXT 12/16/23 08:59 2 gm QID NAEEM Administration Protocol Ezetimibe 10 mg 11/14/23 21:00 11/22/23 21:30 Ezetimibe 10 Mg Tab PO 12/14/23 20:59 10 mg HS NAEEM Administration Escitalopram Oxalate 20 mg 11/14/23 21:00 11/22/23 21:30 Escitalopram Oxalate 20 Mg Tab PO 12/14/23 20:59 20 mg QPM NAEEM Administration Folic Acid 1 mg 11/15/23 09:00 11/23/23 07:37 Folic Acid 1 Mg Tab PO 12/15/23 08:59 1 mg QAM NAEEM Administration Levothyroxine Sodium 125 mcg 11/15/23 06:30 11/23/23 05:36 Levothyroxine Sodium 125 Mcg Tablet PO 12/15/23 06:29 125 mcg DAILYBB NAEEM Administration Loperamide HCl 2 mg 11/14/23 19:55 11/20/23 00:34 Loperamide Hcl 2 Mg Cap PO 12/14/23 19:54 2 mg Q2H PRN Administration loose stool Lorazepam 1 mg 11/15/23 15:00 11/20/23 02:25 Lorazepam 1 Mg Tab PO 12/15/23 14:59 1 mg UD PRN Administration EtOH Withdrawal AWSS Score 6,7 Protocol Miscellaneous 1 each 11/20/23 08:59 11/23/23 07:37 Remove Nicoderm Patch N/A 12/20/23 08:58 1 each DAILY@0859 NAEEM Administration Nicotine 1 patch 11/19/23 18:15 11/23/23 07:37 Nicotine 14 Mg/24 Hr Patch TD 12/19/23 18:14 1 patch QAM NAEEM Administration Ondansetron HCl 4 mg 11/14/23 19:55 11/14/23 21:06 Ondansetron Inj 2 Mg/Ml 2 Ml Vial IV 12/14/23 19:54 4 mg Q6H PRN Administration Nausea Pantoprazole Sodium 40 mg 11/14/23 21:00 11/23/23 07:36 Pantoprazole 40 Mg Tab PO 12/14/23 20:59 40 mg BID NAEEM Administration Thiamine HCl 100 mg 11/23/23 09:00 11/23/23 07:36 Thiamine Hcl 100 Mg Tab PO 12/23/23 08:59 100 mg QAM NAEEM Administration Past Medical History Medical History Alcohol withdrawal Hypothyroidism GERD (gastroesophageal reflux disease) UTI (urinary tract infection) Thrombocytopenia Acute dehydration Anxiety Hypothyroidism GERD (gastroesophageal reflux disease) Past Family History Family History Father Alcohol abuse COPD (chronic obstructive pulmonary disease) Hypertension Reported family history of early sudden deaths Mother Hypertension Hyperlipidemia Brother Hypertension Sister Graves' disease Past Surgical History Surgical History S/P wrist surgery R WRIST REPAIR OF TORN TENDON Hx of vasectomy History of colonoscopy History of esophagogastroduodenoscopy (EGD) History of appendectomy History of tooth extraction WISDOM TEETH History of tonsillectomy S/P LASIK surgery of both eyes History of lumbar spinal fusion Past Anesthesia History No Hx of Anesthesia Complications and No Family Hx of Anesthesia Complications History of PONV No Hx of PONV and No Hx of Motion Sickness Social History Smoking Status: Current every day smoker tobacco type: cigarettes Smoking cigarettes per day: 1 ppd Do You Dip or Chew Tobacco: No Hx Alcohol Use: Yes Alcohol type: hard liquor alcohol intake frequency: other Alcohol Intake Frequency Comment: pt states "a couple swigs a day" Hx Substance Use: No substance use type: marijuana Substance Use Type Other:: medical card very occasional Physical Exam Vital Signs Last Vital Signs Temp 36.5 C 11/23/23 07:56 Pulse 80 11/23/23 07:56 Resp 18 11/23/23 07:56 BP 153/105 H 11/23/23 07:56 Pulse Ox 98 11/23/23 07:56 O2 Del Method Room Air 11/23/23 07:56 Testing Laboratory Results 11/22/23 07:26 11/22/23 07:26 Urine Color Yellow 11/14/23 Unknown Urine Appearance Clear (Clear) 11/14/23 Unknown Urine pH 5.5 (4.5-7.5) 11/14/23 Unknown Ur Specific [place] 1.015 (1.000-1.030) 11/14/23 Unknown Urine Protein 1+ (Negative) H 11/14/23 Unknown Urine Glucose (UA) 1+ (Negative) H 11/14/23 Unknown Urine Ketones 1+ (Negative) H 11/14/23 Unknown Urine Nitrite Negative (Negative) 11/14/23 Unknown Ur Leukocyte Esterase Negative (Negative) 11/14/23 Unknown Urine WBC (Auto) 0-5 /hpf (0-5) 11/14/23 Unknown Urine RBC (Auto) 0-2 /hpf (0-2) 11/14/23 Unknown U Hyaline Cast (Auto) 6-10 /lpf (0-2) H 11/14/23 Unknown U Epithel Cells (Auto) 0-2 /hpf (0-2) 11/14/23 Unknown Urine Bacteria (Auto) None Seen (None Seen) 11/14/23 Unknown Blood Type O Positive 11/14/23 22:22 Antibody Screen NEGATIVE 11/14/23 22:22 11/14/23 14:27 Aerobic Blood Culture - Final Blood No growth in Aerobic bottle after 5 days. Anaerobic Blood Culture - Final No growth in Anaerobic bottle after 5 days. 11/14/23 14:10 Aerobic Blood Culture - Final Blood No growth in Aerobic bottle after 5 days. Anaerobic Blood Culture - Final No growth in Anaerobic bottle after 5 days. Electrocardiogram Date: 11/14/23 Test Reason : Blood Pressure : / mmHG Vent. Rate : 099 BPM Atrial Rate : 099 BPM P-R Int : 138 ms QRS Dur : 088 ms QT Int : 372 ms P-R-T Axes : 017 018 -67 degrees QTc Int : 477 ms Normal sinus rhythm Left ventricular hypertrophy with repolarization abnormality ( R in aVL , Romhilt-Wong ) Cannot rule out Inferior infarct , age undetermined Abnormal ECG When compared with ECG of 17-OCT-2023 16:26, Minimal criteria for Inferior infarct are now Present T wave inversion now evident in Inferior leads Nonspecific T wave abnormality now evident in Lateral leads Confirmed by Roe Bush ([id number]) on 11/17/2023 4:46:22 PM Chest X-Ray Date: 11/14/23 XR chest 1V portable HISTORY: Sepsis COMPARISON: Chest 10/17/2023. FINDINGS: There are low lung volumes with mild elevation of the right hemidiaphragm. This remains unchanged the lungs are clear. The heart is normal in size. No pleural effusions. No pneumothorax. No acute fractures identified. IMPRESSION: No significant change compared to the prior study. No acute process. Echocardiogram Date: 08/18/23 EF: 55-60% LV Function: normal RWMA: + none Other Findings: + LVH (severe) and + diastolic dysfunction Valvular Disease: + no significant valvular disease
[2023-11-23 08:39] LABS: Hematocrit (blood only) 24.8 % (42.0-52.0); Hemoglobin 8.1 g/dl (14.0-18.0); Mean Corpuscular Hemoglobin 32.1 pg (25.0-34.0); Mean Corpuscular Hgb Conc 32.7 g/dL (32.0-36.0); Mean Corpuscular Volume 98.4 fL (80.0-100.0); Mean Platelet Volume 10.9 fL (9.4-12.4); Platelet Count 218 K/uL (130-400); RDW Coefficient of Variation 18.2 % (11.5-14.5); RDW Standard Deviation 65.8 fL (36.4-46.3); Red Blood Count 2.52 M/uL (4.70-6.10)
[2023-11-23 09:00] LABS: BUN Creatinine Ratio 6.1 (10-20); Calcium 8.2 mg/dl (8.6-10.3); Creatinine Clr Calc Pharmacy 82.1 ml/min; Est GFR (African American) 96.2 ml/min; Potassium 3.6 mmol/L (3.5-5.1)
--- NOTE | 2023-11-23 09:11 | Hospitalist Progress Note ---
Date of Service November 23, 2023 Assessment & Plan (1) EARLINE (acute kidney injury): (2) Acute pancreatitis: (3) Central pontine myelinolysis: (4) Fall: (5) Alcohol withdrawal: (6) Hypomagnesemia: (7) Hyperlipidemia: (8) Prediabetes: (9) Right shoulder pain: Plan Pt is a 58 yo male with a PMHx of AUD, osmotic demyelination syndrome (central pontine myelinolysis), asthma, hypothyroidism, HTN, HLD, GERD, Hunter's esophagus, and SUZI, who presented following a fall, and was admitted due to concerns of alcohol withdrawal. Anemia - Hbg 8.8 on admission. 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 - pt's mentation has since clear and he appears to be at baseline now Alcohol use disorder - history of admissions for alcohol withdrawal; pt denies alcohol withdrawal seizures - last drink on 11/12/23; alcohol level neg on arrival - continue fall precautions - continue folate 1 mg, thiamine 100 mg daily - CM consulted to discuss rehab options; pt has applied for MA and has been open to discuss D&A rehab (although he is still opting to go home upon d/c); his family is very concerned about his ability to live at home by himself Alcohol withdrawal- resolved Hyponatremia/hypomagnesemia/hypophosphorous/hypokalemia- resolved - in the context of AUD and malnutrition - trend BMP Acute pancreatitis - resolved - no abdominal tenderness on physical exam; lipase 1778 on arrival, downtrended to 444 - CTAP 11/13: interval progression of the acute pancreatitis Right shoulder pain - resolved - shoulder XR on 11/13: no fracture or dislocation - continue Voltaren 1% 2g BID and ice packs as needed Severe hepatic steatosis- stable - CTAP 11/13: unchanged severe hepatic steatosis Abnormal EKG - small Q waves present in inferior leads; troponin neg - consider echo if patient develops any symptoms - recommend outpatient follow up with PCP Diarrhea- resolved - pt denies blood in stool - PCR stool and C. difficile negative Hypothyroidism - TSH 2.062 upon admission - continue levothyroxine 125 mcg daily Hypertension - restart home valsartan 320mg tomorrow FEN: low fat diet Code: full DVT ppx: SCDs (which he is not wearing); no chemical ppx d/t ongoing bleeding Consults: GI Dispo: med/surg Admission and Anticipated Discharge Date Admission Date: November 14, 2023 Supervising Physician Co-Signing Physician Notes ATTESTATION I also saw the patient and confirmed mccauley portions of the history and exam. I agree with the impression and plan in the documentation, and as summarized below. Post EGD/colonoscopy today. EXAM 151/92, 85, 16, 36.4, 96% on room air Heart regular rate and rhythm Lungs clear, nonlabored respirations DATA Labs HgB 8.1 EGD shows findings consistent with both candidiasis and gastritis. Biopsy sent for pathology. Colonoscopy demonstrates polyps, pathology pending. IMPRESSION & PLAN Anemia, stable (+) FOB Esophageal candidiasis/gastritis Colonic polyp, pathology pending Altered mental status, improved I suspect nearing his baseline Alcohol use disorder Hyponatremia Diflucan 200 mg daily x three weeks; will need repeat EGD in 6 weeks Hemoglobin is again stable today; repeat in AM Additional per resident documentation Subjective Pt sleeping this AM. Awakens to talk with me- he is trying to rest his eyes. He confirms he is to have EGD/colonoscopy this AM. No new concerns. Review of Systems Review of Systems: As per HPI Physical Exam Physical Exam: Constitutional: well appearing, no acute distress HEENT: normocephalic, no conjunctival injection CV: clinically well perfused Respiratory: no increased work of breathing MSK: no gross deformities noted Skin: warm, dry, no rashes Neuro: alert, oriented, no FND noted Results & Data Results & Data Vital Signs (Past 12 Hours) Vital Signs Temp Pulse Resp BP Pulse Ox O2 Del Method 11/23/23 07:56 36.5 C 80 18 153/105 H 98 Room Air 11/22/23 23:23 36.8 C 87 18 153/98 H 99 Room Air Resident Activity Tracking Resident Involvement: Resident Care Provided Care Provided: Adult Hospital Medicine (5) Alcohol withdrawal Complication of substance-induced condition: uncomplicated Qualified Code(s): F10.930 - Alcohol use, unspecified with withdrawal, uncomplicated
--- NOTE | 2023-11-23 09:28 | History & Physical Bridge Note ---
Date of Service November 23, 2023 History & Physical Bridge Note I have examined the patient, reviewed the History & Physical and in the interval since the performance of the History & Physical I have noted the following changes of clinical significance: Patient did not complete entire bowel preparation. States he is passing liquid bms without any solid pieces, however. No abdominal pain, n/v or rectal bleeding. Remains NPO at this time. PE: A&Ox3. RRR. Lungs CTA bilaterally. Abdomen soft, nontender. Normal bowel sounds. A/P: Patient is a 58 y.o. male with a history of alcohol use disorder admitted after sustaining a fall at home admitted with acute pancreatitis and anemia with heme positive stool. -NPO. -EGD and colonoscopy with Dr. Reddy today for further evaluation. -Continue Pantoprazole 40 mg BID. -Further recommendations pending results of testing. Supervising Physician Co-Signing Physician Notes Agree with KALEN Bell as above Abd: Soft, NT, ND, +BS Continue current therapy and supportive care Proceed with EGD and colonoscopy now
[2023-11-23] MEDS: SODIUM CHLORIDE 0.9% 500 ML IV SCH (12:35)
[2023-11-23] MEDS: PROPOFOL IV EMULSION 10 MG/ML 20 ML VIAL IV ONE (12:36)
[2023-11-23] MEDS: LIDOCAINE 2% 2 ML VIAL/AMP(20MG/ML) INFIL ONE (12:36)
--- NOTE | 2023-11-23 12:43 | Anesthesiology Progress Note ---
Date of Service November 23, 2023 Anesthesia Post Procedure Vital Signs Vital Signs: Temp Pulse Resp BP Pulse Ox Pulse Ox O2 Del Method 11/23/23 12:32 36.4 C L 85 16 151/92 H 96 Room Air 11/23/23 12:03 36.6 C 80 16 149/92 H 96 Room Air 11/23/23 11:30 88 18 136/98 94 Room Air 11/23/23 11:15 85 18 120/81 93 Oxymask 11/23/23 11:00 101 H 14 123/87 93 Oxymask 11/23/23 09:37 36.2 C L 85 18 146/106 H 99 Room Air 11/23/23 07:56 36.5 C 80 18 153/105 H 98 Room Air 11/22/23 23:23 36.8 C 87 18 153/98 H 99 Room Air 11/22/23 14:29 36.9 C 90 16 165/111 H 99 Room Air 11/22/23 14:00 95 O2 Del Method O2 Flow Rate 11/23/23 12:32 11/23/23 12:03 11/23/23 11:30 11/23/23 11:15 3 11/23/23 11:00 6 11/23/23 09:37 11/23/23 07:56 11/22/23 23:23 11/22/23 14:29 11/22/23 14:00 Room Air Transfer of Care Handoff Completed per policy Notes Mental Status: alert / awake / arousable and participated in evaluation Patient Amnestic to Procedure: Yes Nausea / Vomiting: adequately controlled Pain: adequately controlled Airway Patency, RR, SpO2: stable & adequate BP & HR: stable & adequate Hydration State: stable & adequate Anesthetic Complications: no major complications apparent
--- NOTE | 2023-11-23 12:49 | GI REPORT ---
[facility] Patient: SACHIN MCCALL : 1965 Sex at : Male Age: 58 Years Procedure: Upper GI endoscopy Date: 11/23/2023 Attending Physician: Leroy Reddy DO Referring MD: Joshua Iglesias Indications: - Heme positive stool - Anemia Medications: - Monitored Anesthesia Care Complications: - No immediate complications. Estimated Blood Loss: - Estimated blood loss: none. Procedure: - Prior to the procedure, a History and Physical was performed, and patient medications and allergies were reviewed. The patient's tolerance of previous anesthesia was also reviewed. The risks and benefits of the procedure and the sedation options and risks were discussed with the patient. All questions were answered, and informed consent was obtained. Prior Anticoagulants: The patient has taken no anticoagulant or antiplatelet agents. ASA Grade Assessment: II - A patient with mild systemic disease. After reviewing the risks and benefits, the patient was deemed in satisfactory condition to undergo the procedure. - The egd scope was introduced through the mouth and advanced to the second part of the duodenum. - The upper GI endoscopy was accomplished without difficulty. - The patient tolerated the procedure well. Findings: - Diffuse, white plaques were found in the entire esophagus. Brushings for FARZAD prep were obtained in the entire esophagus. - One benign-appearing, intrinsic severe stenosis was found in the distal esophagus. This stenosis measured 10 mm (inner diameter) x 1 cm (in length). The stenosis was traversed. - Localized mild inflammation characterized by erythema was found in the gastric antrum. Biopsies were taken with a cold forceps for histology. - The examined duodenum was normal. Impression: - Esophageal plaques were found, consistent with candidiasis. Brushings performed. - Benign-appearing esophageal stenosis. - Gastritis, characterized by erythema. Biopsied. - Normal examined duodenum. Recommendation: - Diflucan (fluconazole) 200 mg PO daily for 3 weeks. - Resume previous diet. - Continue present medications. - Await pathology results. - [facility]. - Repeat upper endoscopy in 6 weeks to check healing. Procedure Code(s): - 13517, Esophagogastroduodenoscopy, flexible, transoral; with biopsy, single or multiple Diagnosis Code(s): - R19.5, Other fecal abnormalities - D64.9, Anemia, unspecified - K22.9, Disease of esophagus, unspecified - K22.2, Esophageal obstruction - K29.70, Gastritis, unspecified, without bleeding CPT(R) - 2022 copyright [employer]. All Rights Reserved. The CPT codes, CCI edits and ICD codes generated are intended as suggestions and were generated based on input data. These codes are preliminary and upon pie dough roller review may be revised to meet current compliance and payer requirements. The provider is responsible for the final determination of appropriate codes, and modifiers. Dr. Harper Case This document has been electronically signed. Note Initiated:11/23/2023 Note Completed:11/23/2023 11:06 AM \\[email or web address]\[email or web address]\Data\Provation\Results\LIVE\[id number].[email or web address]
--- NOTE | 2023-11-23 12:49 | GI REPORT ---
[facility] Patient: SACHIN MCCALL : 1965 Sex at : Male Age: 58 Years Procedure: Colonoscopy Date: 11/23/2023 Attending Physician: DO Tamiko Mcgarry MD: Joshua Iglesias Indications: - Heme positive stool Medications: - Monitored Anesthesia Care Complications: - No immediate complications. Estimated Blood Loss: - Estimated blood loss: none. Procedure: - Prior to the procedure, a History and Physical was performed, and patient medications and allergies were reviewed. The patient's tolerance of previous anesthesia was also reviewed. The risks and benefits of the procedure and the sedation options and risks were discussed with the patient. All questions were answered, and informed consent was obtained. Prior Anticoagulants: The patient has taken no anticoagulant or antiplatelet agents. ASA Grade Assessment: II - A patient with mild systemic disease. After reviewing the risks and benefits, the patient was deemed in satisfactory condition to undergo the procedure. - The adult colonoscope was introduced through the anus and advanced to the terminal ileum, with identification of the appendiceal orifice and ileocecal valve. - The colonoscopy was performed without difficulty. - The patient tolerated the procedure well. - The quality of the bowel preparation was fair. - The terminal ileum, the rectum and the ileocecal valve were photographed. Findings: - The perianal and digital rectal examinations were normal. - Five pedunculated and sessile polyps were found in the sigmoid colon and ascending colon. The polyps were 3 to 7 mm in size. These polyps were removed with a cold snare. Resection and retrieval were complete. - Multiple small-mouthed diverticula were found in the sigmoid colon. - Internal hemorrhoids were found during retroflexion. The hemorrhoids were small. Impression: - Preparation of the colon was fair. - Five 3 to 7 mm polyps in the sigmoid colon and in the ascending colon, removed with a cold snare. Resected and retrieved. - Diverticulosis in the sigmoid colon. - Internal hemorrhoids. Recommendation: - [facility]. - Continue present medications. - Advance diet as tolerated. - Repeat colonoscopy date to be determined after pending pathology results are reviewed for surveillance based on pathology results. Procedure Code(s): - 03535, Colonoscopy, flexible; with removal of tumor(s), polyp(s), or other lesion(s) by snare technique Diagnosis Code(s): - R19.5, Other fecal abnormalities - D12.5, Benign neoplasm of sigmoid colon - D12.2, Benign neoplasm of ascending colon - K64.8, Other hemorrhoids - K57.30, Diverticulosis of large intestine without perforation or abscess without bleeding CPT(R) - 2023 copyright [employer]. All Rights Reserved. The CPT codes, CCI edits and ICD codes generated are intended as suggestions and were generated based on input data. These codes are preliminary and upon certified professional coder review may be revised to meet current compliance and payer requirements. The provider is responsible for the final determination of appropriate codes, and modifiers. Dr. Leroy Reddy This document has been electronically signed. Note Initiated:11/23/2023 Note Completed:11/23/2023 11:[address] Leroy Reddy This document has been electronically signed. Note Amended:11/23/2023 11:13 AM \\[email or web address]\[email or web address]\Data\Provation\Results\LIVE\[id number]
--- NOTE | 2023-11-24 08:22 | Hospitalist Progress Note ---
Date of Service November 24, 2023 Assessment & Plan (1) EARLINE (acute kidney injury): (2) Acute pancreatitis: (3) Central pontine myelinolysis: (4) Fall: (5) Alcohol withdrawal: (6) Hypomagnesemia: (7) Hyperlipidemia: (8) Prediabetes: (9) Right shoulder pain: Plan Pt is a 58 yo male with a PMHx of AUD, osmotic demyelination syndrome (central pontine myelinolysis), asthma, hypothyroidism, HTN, HLD, GERD, Hunter's esophagus, and SUZI, who presented following a fall, and was admitted due to concerns of alcohol withdrawal. Anemia - Hbg 8.8 on admission. 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 - pt's mentation has since clear and he appears to be at baseline now Alcohol use disorder - history of admissions for alcohol withdrawal; pt denies alcohol withdrawal seizures - last drink on 11/12/23; alcohol level neg on arrival - continue fall precautions - continue folate 1 mg, thiamine 100 mg daily - CM consulted to discuss rehab options; pt has applied for MA and has been open to discuss D&A rehab (although he is still opting to go home upon d/c); his family is very concerned about his ability to live at home by himself Alcohol withdrawal- resolved Hyponatremia/hypomagnesemia/hypophosphorous/hypokalemia- resolved - in the context of AUD and malnutrition - trend BMP Acute pancreatitis - resolved - no abdominal tenderness on physical exam; lipase 1778 on arrival, downtrended to 444 - CTAP 11/13: interval progression of the acute pancreatitis Right shoulder pain - resolved - shoulder XR on 11/13: no fracture or dislocation - continue Voltaren 1% 2g BID and ice packs as needed Severe hepatic steatosis- stable - CTAP 11/13: unchanged severe hepatic steatosis Abnormal EKG - small Q waves present in inferior leads; troponin neg - consider echo if patient develops any symptoms - recommend outpatient follow up with PCP Diarrhea- resolved - pt denies blood in stool - PCR stool and C. difficile negative Hypothyroidism - TSH 2.062 upon admission - continue levothyroxine 125 mcg daily Hypertension - restart home valsartan 320mg tomorrow FEN: low fat diet Code: full DVT ppx: SCDs (which he is not wearing); no chemical ppx d/t ongoing bleeding Consults: GI Dispo: med/surg Admission and Anticipated Discharge Date Admission Date: November 14, 2023 (5) Alcohol withdrawal Complication of substance-induced condition: uncomplicated Qualified Code(s): F10.930 - Alcohol use, unspecified with withdrawal, uncomplicated
[2023-11-24] MEDS: FLUCONAZOLE 100 MG TAB PO SCH (08:57)
[2023-11-24] MEDS: VALSARTAN 80 MG TAB PO SCH (08:57)
[2023-11-24 10:26] LABS: Basophils # (auto) 0.03 K/uL (0.00-0.20); Basophils % (auto) 0.3 %; Eosinophils % (auto) 1.1 %; Hematocrit (blood only) 23.2 % (42.0-52.0); Hemoglobin 7.5 g/dl (14.0-18.0); Immature Granulocytes % (auto) 1.1 %; Lymphocytes # (auto) 0.94 K/uL (1.20-3.40); Lymphocytes % (auto) 10.8 %; Mean Corpuscular Hemoglobin 31.9 pg (25.0-34.0); Mean Corpuscular Hgb Conc 32.3 g/dL (32.0-36.0); Mean Corpuscular Volume 98.7 fL (80.0-100.0); Mean Platelet Volume 11.1 fL (9.4-12.4); Monocytes # (auto) 0.73 K/uL (0.11-0.59); Monocytes % (auto) 8.4 %; Neutrophils # (auto) 6.81 K/uL (1.40-6.50); Neutrophils % (auto) 78.3 %; Platelet Count 204 K/uL (130-400); RDW Coefficient of Variation 18.2 % (11.5-14.5); RDW Standard Deviation 64.9 fL (36.4-46.3); Red Blood Count 2.35 M/uL (4.70-6.10); White Blood Count 8.71 K/ul (4.8-10.8)
[2023-11-24 10:41] LABS: Albumin Globulin Ratio 0.9 (0.9-2); Albumin Level 2.9 gm/dl (3.4-5.0); BUN Creatinine Ratio 7.1 (10-20); Bilirubin,Total 1.3 mg/dl (0.2-1.0); Calcium 8.1 mg/dl (8.6-10.3); Creatinine Clr Calc Pharmacy 82.1 ml/min; Est GFR (African American) 96.2 ml/min; Globulin 3.1 gm/dl (2.5-4.0); Potassium 3.7 mmol/L (3.5-5.1)
[2023-11-24 10:43] LABS: Polychromasia 1+; Target Cells 1+
--- NOTE | 2023-11-24 19:54 | Discharge Summary ---
Date of Service November 24, 2023 Admission HPI Per Admitting Provider Alexei is a 58-year-old male with PMH of alcohol use disorder, alcohol withdrawal seizures, central pontine myelinolysis, asthma, hypothyroidism, HLD, GERD, Hunter's esophagus, SUZI, allergic rhinitis, anxiety. He presented via EMS for a fall on 11/13. No LOC. Patient reports he struck his head as well as his right shoulder. He is unsure if he fell yesterday, and only vaguely remembers falling today. Patient does have a history of alcohol abuse; reports he is dehydrated and that his last alcohol drink was 2 days ago. He was previously drinking around 4 drinks per day of rum. He has not taking any of his regular medications in the past 2 days; no recent change in medications. No change in dietary habits, but has been drinking less fluids. Patient endorses 10/10 right shoulder pain at present, which she attributes to the fall. The pain radiates down his hand; no radiation to the scapula. It is a constant pain, that is worse with movements, and patient has difficulty lifting the arm. He did not take any pain medicine before coming in. When asked about history of alcohol withdrawal, he denies any history of alcohol withdrawal seizures. When asked why the patient started drinking again, he reports he is unsure why; he does note he is open to speaking with people about alcohol cessation during this admission. No PMH of kidney stones, IN, or DVT/PE to his knowledge. He does endorse tobacco cigarette smoking; <1PPD. He denies recreational drug use. Patient is mildly hypothermic at 36.2 C at time of admission. ED course: NSS 1000 mL IV NSS with 20mEq IV x 1 Potassium supplementation 40mEq p.o. Magnesium 1 g IV Folic acid 1 mg IV Thiamine 100 mg IV ROS: Patient endorses confusion, fatigue, and right shoulder pain/tingling. Patient denies fever, chills, night-sweats, body aches, dizziness, lightheadedness, GRANGER, chest pain, SOB, cough, pleuritic CP, abdominal pain, nausea, vomiting, hematemesis, no blood in urine/stool, melena, and change in urinary/bowel. Per discussion with med rec, patient has not filled certain 30-day medications since August 2023, which could indicate poor compliance with medications over the past several months. Admission Exam Per Admitting Provider General: Lethargic; disheveled; non-toxic appearing; cooperative; SpO2 99% on RA HEENT: Superficial abrasions on the posterior scalp and the bridge of the nose; no scleral icterus; PERRLA; moist mucus membrane; vision and hearing intact Neck: supple; no lymphadenopathy; trachea midline Skin: warm, dry without signs of tenting; no cyanosis; no rashes, bruising, lesions, or erythema noted CV: chest wall NTP; RRR; S1/S2 normal; no murmurs/rubs/gallops; pulses intact and symmetric at radial, DP, and PT Lungs: no acute respiratory distress; symmetrical chest wall expansion; clear breath sounds across all lung kent w/o adventitious sounds; no wheezing ABD: Soft, NTP; BS present; no rebound/guarding; no distention MSK: Right shoulder is NTP, however he endorses pain with passive ROM; no tics or fasciculations; no edema noted in the LEs b/l, nonerythematous Neuro: Patient is alert and oriented to name, , and location; not oriented to month; normal mood and affect; fluent speech; no focal deficits; sensation grossly intact in the LEs b/l Principal Diagnosis Alcohol withdrawal syndrome Discharge Exam General: no acute distress, speaking in full sentences Resp: good inspiratory effort, no labored breathing HEENT: conjunctivae appear clear, no audible congestion, no swelling noted face or lips Skin: skin appears dry, normal coloration, no rash visible on exposed skin areas Neuro: alert and oriented x3, no focal deficits appreciated Psych: euthymic affect, pleasant and interactive, logical thought process Discharge Data Allergies Allergy/AdvReac Type Severity Reaction Status Date / Time Sulfa (Sulfonamide Allergy Intermediate HIVES Verified 11/23/23 09:36 Antibiotics) MARGARET Inhibitors AdvReac Intermediate COUGH Verified 11/23/23 09:36 amlodipine AdvReac Intermediate FATIGUE Verified 11/23/23 09:36 clonidine AdvReac Intermediate HEADACHES Verified 11/23/23 09:36 varenicline [From Chantix] AdvReac Intermediate JITTERY/SHA Verified 11/23/23 09:36 KES Consultations 11/14/23 16:04 ED Decision to Admit Stat 11/21/23 10:59 Consult Gastroenterology Routine Procedures Performed Operation Date: 11/23/23 16:30 Actual Procedures p EGD Biopsy Cytology - Leroy Horton Case, DO s Colonoscopy Polypectomy - Leroy Love. Case, DO Ordered Studies 11/14/23 14:06 CT head/brain wo con Stat 11/14/23 17:04 CT Abd and Pelvis [CT abd pelvis wo con] Stat Hospital Course (1) EARLINE (acute kidney injury): Pt is a 58 yo male with a PMHx of AUD, osmotic demyelination syndrome (central pontine myelinolysis), asthma, hypothyroidism, HTN, HLD, GERD, Hunter's esophagus, and SUZI, who presented following a fall, and was admitted due to concerns of alcohol withdrawal. Anemia - Hbg 8.8 on admission. 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 - pt's mentation has since clear and he appears to be at baseline now Alcohol use disorder - history of admissions for alcohol withdrawal; pt denies alcohol withdrawal seizures - last drink on 11/12/23; alcohol level neg on arrival - continue fall precautions - continue folate 1 mg, thiamine 100 mg daily - CM consulted to discuss rehab options; pt has applied for MA and has been open to discuss D&A rehab (although he is still opting to go home upon d/c); his family is very concerned about his ability to live at home by himself Alcohol withdrawal- resolved Hyponatremia/hypomagnesemia/hypophosphorous/hypokalemia- resolved - in the context of AUD and malnutrition - trend BMP Acute pancreatitis - resolved - no abdominal tenderness on physical exam; lipase 1778 on arrival, downtrended to 444 - CTAP 11/13: interval progression of the acute pancreatitis Right shoulder pain - resolved - shoulder XR on 11/13: no fracture or dislocation - continue Voltaren 1% 2g BID and ice packs as needed Severe hepatic steatosis- stable - CTAP 11/13: unchanged severe hepatic steatosis Abnormal EKG - small Q waves present in inferior leads; troponin neg - consider echo if patient develops any symptoms - recommend outpatient follow up with PCP Diarrhea- resolved - pt denies blood in stool - PCR stool and C. difficile negative Hypothyroidism - TSH 2.062 upon admission - continue levothyroxine 125 mcg daily Hypertension - restart home valsartan 320mg tomorrow (2) Acute pancreatitis: (3) Central pontine myelinolysis: (4) Fall: (5) Alcohol withdrawal: (6) Hypomagnesemia: (7) Hyperlipidemia: (8) Prediabetes: (9) Right shoulder pain: Total Time Total Time Spent Total Time Spent (In Minutes): 36 min Discharge Plan Discharge Items Patient Disposition: Home - Self-Care Reason For Visit: FALLS, ALCOHOL WITHDRAWAL Discharge Diagnosis: Alcoholic withdrawal Alcohol use disorder Activity: Per Instructions section Non-emergency contact: Primary Care Provider Call non-emergency contact if: you have any medication questions and your symptoms worsen Follow-up/Referrals: PCP,NO [Primary Care Provider] - Diet: Regular Addtl Attending Provider Instructions: Dealuis Linda, You came to the hospital after you fell and struck your head. We admitted you to the hospital after the initial evaluation because your labs showed evidence of kidney failure. In addition, you also were exhibiting signs of alcohol withdrawal. Therefore, we admitted you to the hospital for further evaluation and acute management of your conditions. You received medications to help villegas off your withdrawal symptoms, and received fluids to help improve your kidney function. We also obtained daily labs to track your improvement during your clinical stay. You were also found to have anemia, or a low hemoglobin level, so we consulted the gastroenterology service they performed an upper endoscopy and colonoscopy to identify a potential source of bleeding. Fortunately, no bleeding sites were found, and your blood levels stabilized. As you improved clinically, we consulted with case management they inquired about possible locations to which you could be discharged, where you can receive help, and treatment for alcohol use disorder. As you refused these treatment recommendations, and you are medically stable, we feel that you are ready to be safely discharged home. 1. We are sending a medication to your pharmacy called naltrexone. Please take naltrexone 50 mg daily, then follow-up with your primary care physician (PCP), or prescribing physician in a month for continuation or dose adjustment as needed. 2. To treat your oral and esophageal candidiasis (mouth and throat fungus), we are sending a medication to your pharmacy called Diflucan (fluconazole). Please take Diflucan 200 mg daily x 10 days. 3. We are sending a medication to your pharmacy called folic acid, or folate. Please take folic acid 1 mg daily. When you complete this prescription, you may purchase it [id number] and continue taking at the same dose daily. 4. We are sending a medication to the pharmacy called thiamine. Please take thiamine 100 mg daily. As above, upon completion of this prescription, you may purchase it [id number] and continue taking at the same dose daily. 5. We strongly recommend that you make a follow-up appointment with your primary care physician. If you do not have a primary care physician, please contact the hospital and asked to be transferred to the hospital rehabilitation aide/scheduler. They will help you make an appointment with. It is important that you follow-up with a PCP, as they are best suited to oversee your complex and multiple healthcare needs. 6. We also strongly recommend that you begin reducing your alcohol consumption when you are at home. There are many short and long-term consequences of heavy alcohol consumption, including but not limited to, liver damage, encephalopathy (return for any disease of the brain that alters its structure/function), cirrhosis, compromised immunity, memory loss, breathing difficulty, and . If you are unable to curb your drinking on your own, the medication prescribed above (naltrexone) is meant to help reduce your craving for alcohol. In addition, there are treatment facilities that specialize in alcoholic rehabilitation. Regardless of how you attempt to curb your drinking, it is important that you seek help if you are unable to quit on your own. It has been a pleasure to care for you here at [facility]. If you have any questions or concerns about your care, you may contact us at [phone]. Pending Studies at Discharge: No Stand-Alone Forms: My [facility], Smoking Cessation Medications and DC Order Prescriptions: New fluconazole [Diflucan] 100 mg Tablet 200 mg PO QAM 9 Days Qty: 18 0RF thiamine HCl (vitamin B1) 100 mg Tablet 100 mg PO QAM 30 Days Qty: 30 0RF folic acid 1 mg Tablet 1 mg PO QAM 30 Days Qty: 30 0RF naltrexone 50 mg tablet 50 mg PO DAILY Qty: 30 0RF Continued atorvastatin 40 mg tablet 40 mg PO QPM Qty: 90 3RF Hold Instructions: Resume on 09/15/23. Rx Instructions: PER PT "DON'T KNOW WHEN LAST TOOK MEDS". LAST FILLED 07/13/23 FOR 90 DAYS. escitalopram oxalate 20 mg tablet 20 mg PO QPM Qty: 90 1RF Rx Instructions: PER PT "DON'T KNOW WHEN LAST TOOK MEDS". LAST FILLED 06/09/23 FOR 90 DAYS ezetimibe 10 mg tablet 10 mg PO HS Hold Instructions: Resume on 09/15/23. Rx Instructions: PER PT "DON'T KNOW WHEN LAST TOOK MEDS". LAST FILLED 06/28/23 FOR 90 DAYS omeprazole 40 mg capsule,delayed release(DR/EC) 40 mg PO BID Qty: 60 3RF Rx Instructions: PER PT "DON'T KNOW WHEN LAST TOOK MEDS". levothyroxine 125 mcg tablet 125 mcg PO QAM Qty: 30 3RF Rx Instructions: PER PT "DON'T KNOW WHEN LAST TOOK MEDS". LAST FILLED 07/13/23 FOR 90 DAYS furosemide 40 mg tablet 40 mg PO QAM Rx Instructions: PER PT "DON'T KNOW WHEN LAST TOOK MEDS". LAST FILLED 08/21/23 FOR 30 DAYS valsartan 320 mg tablet 320 mg PO QAM Rx Instructions: PER PT "DON'T KNOW WHEN LAST TOOK MEDS". LAST FILLED 08/22/23 FOR 30 DAYS. folic acid 1 mg tablet 1 mg PO QAM Rx Instructions: PER PT "DON'T KNOW WHEN LAST TOOK MEDS". LAST FILLED 08/21/23 FOR 30 DAYS albuterol sulfate 90 mcg/actuation HFA aerosol inhaler 1 puff inhalation Q4 PRN (Reason: sob) Rx Instructions: PER PT "DON'T KNOW WHEN LAST TOOK MEDS". LAST FILLED 07/23/23. phenobarbital 30 mg Tablet 30 mg PO Q24H Qty: 1 0RF Rx Instructions: PER PT "DON'T KNOW WHEN LAST TOOK MEDS". ORDERED 10/20/23, PER PT "NEVER SCIENTIFIC RESEARCH ASSOCIATE FROM PHARMACY". loperamide 2 mg Capsule 2 mg PO Q2H PRN (Reason: loose stool) Qty: 30 0RF Rx Instructions: PER PT "DON'T KNOW WHEN LAST TOOK MEDS". Discharge Orders: Discharge Order (Routine); Ordered 11/24/23 Ordered By: Anne Street/Other Patient Handouts: Alcohol Addiction, Alcoholism: Getting Help Admission Data Admit Date/Time: 11/14/23 16:55 Attending Provider: Erendira Disla Admit Provider: Yoel Babin Primary Care Provider: PCP,NO Other Providers: Yoel Babin; Leroy Reddy Other Interventions: Discharge Summary Assessment (RN) Last Done: 11/24/23 14:35 Discharge Summary Assessment (RN) Last Done: 11/23/23 11:05 Supervising Physician Co-Signing Physician Notes I personally examined the patient and verified mccauley points of history and exam, discussed case, and agree with decision making and plan documented by Dr. Esparza. Discussed concern for alcohol use and return to ED. Patient states he will engage with local AA, he does not have a sponser, but will return to community to find one. Alexei was open to starting naltrexone on discharge to help with cravings and reduce relapse. Advised continued treatment with diflucan, advised follow-up with PCP for continued monitoring of transaminases and avoidance of alcohol use. Patient appears comfortable, lungs clear b/l to auscultation, regular rate and rhythm, no acute distress. He understands the importance of PCP follow-up at [facility] and will schedule in next week. Resident Activity Tracking Resident Involvement: Resident Care Provided Care Provided: Adult Hospital Medicine
--- NOTE | 2023-11-26 13:41 | Coding Query ---
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 Please assist us with the question(s) below: Coding Question(s): 11/17+ 11/18 IM PN Elevated lipase/pancreatitis type findings on CTsuspect more chronic pancreatitis based on lab and imaging but no symptoms. Follow closely. *all other notes from resident--acute pancreatitis Pls clarify the acuity/chronicity of the patient's pancreatitis Physician's Response(s): [ X ] Acute [ ] Chronic [ ] Acute on chronic [ ] Other [ ]Unable to determine Thank you Reina Espinal, CDIP, CCS Principal Diagnosis: "that condition established after study, to be chiefly responsible for occasioning the admission of the patient to the hospital for care." Co-Existing Principal Diagnosis: "when two or more diagnoses equally meet the criteria for principal diagnosis as determined by the circumstances of admission, diagnostic work up, and/or therapy provided, and the Alphabetic Index, Tabular List, or another coding guideline does not provide sequencing direction, any one of the diagnoses may be sequenced first." "When the physician has documented what appears to be a current diagnosis in the body of the record, but has not included the diagnosis in the final diagnostic statement, the physician should be asked whether the diagnosis should be added." (Source Coding [facility] 2 QTR90. p3-4) JOSE M
== END 2023-11-24 16:00 | disposition home or self-care (01) | DRG 682 ==
LOC: ED 13:35 → 2E 16:55 → SUATTDRO 16:55 → 2E 19:30 → 3N 11-19 18:29

== ENCOUNTER 2024-02-01 08:06 | Inpatient (IN) ==
--- NOTE | 2024-02-01 08:18 | Emergency Department Note ---
Impression & Plan Acute exacerbation of chronic obstructive pulmonary disease, Hypomagnesemia, Chest pain, Hypoxia, Hypokalemia, UGIB (upper gastrointestinal bleed), Anemia ED Provider Note NAME: SACHIN MCCALL AGE: 58 SEX: M : 1965 ARRIVES VIA: Ambulance INFORMANT: Patient, EMS ED PROVIDER(S): Wiliam Steinberg DO CHIEF COMPLAINT: Chest pain HPI: The patient is a 58-year-old male who does have a history of tobacco use as well as asthma who presented to the emergency department for an evaluation of chest pain. The patient was noted to have wheezing and trouble breathing prior to arrival. He was treated with a nebulizer treatment as well as Solu-Medrol prior to arrival. The patient states at this time his pain as well as his breathing is improving. The patient denies having any hemoptysis. He does complain of a dry cough. He denies having any fever or lower extremity swelling. ROS: See above HPI for pertinent positives & negatives. A total of 10 systems reviewed and were otherwise negative. PAST MEDICAL HISTORY: See Below PAST SURGICAL HISTORY: See Below FAMILY HISTORY: See Below SOCIAL HISTORY: See Below HOME MEDICATIONS: See Below ALLERGIES: See Below VITALS: See Below PHYSICAL EXAMINATION: GENERAL: Patient is awake alert in no acute distress patient is resting comfortably and showing no signs of anxiety EYES: The conjunctivae are clear. The pupils are round and reactive. EARS, NOSE, MOUTH AND THROAT: The nose is without any evidence of any deformity. Mucous membranes are moist. Tongue is midline. NECK: The neck is nontender and supple. RESPIRATORY: Diminished breath sounds are noted in the right lung field. There were scattered rhonchi noted throughout. Faint rales are noted at the left base. There is no conversational dyspnea or tachypnea. CARDIOVASCULAR: Regular rate and rhythm noted there no murmurs rubs or gallops normal S1 normal S2. GASTROINTESTINAL: The abdomen is soft. Abdomen is nontender. Stool was dark and heme + MUSCULOSKELETAL/EXTREMITIES: There is no evidence of gross deformity full range of motion is noted in the hips and shoulders. SKIN: There is no obvious evidence of any rash. There are no petechiae, pallor or cyanosis noted. NEUROLOGIC: Patient is awake alert and oriented x3 MEDICAL DECISION MAKING: The patient is a 58-year-old male who presented to the emergency department for chest pain and difficulty breathing. The patient has a history of COPD as well as tobacco use. The patient was treated with DuoNeb therapy. He also received a DuoNeb and Solu-Medrol prior to arrival by the EMS personnel. I discussed patient's laboratory and radiographic studies with him. He does appear to have some degree of underlying anemia but he also has signs of a GI bleed at this time. He was treated with Protonix and Pepcid in the emergency department. The patient was significantly proved on my reevaluation. I discussed patient's condition with the on-call [facility]. They have agreed to evaluate the patient in the emergency department for further management and disposition. Triage Nursing notes reviewed. Prior medical records reviewed Vital Signs: reviewed and remarkable for initial hypoxia. Differential diagnosis: Reactive airway disease, pneumonia, pneumothorax, COPD, CHF, infections, cardiac ischemia, pulmonary embolism, musculoskeletal, gastrointestinal, as well as other pathologies. ER treatment provided: See below Diagnostics interpreted by me: ECG: EKG was obtained in the emergency department. My interpretation is normal sinus rhythm at 99 bpm. There was no ectopy. There is no acute ST segment abnormalities noted. This was compared to a tracing from December 20, 2023. No significant changes were noted. Cardiac Monitoring: An order was placed for continuous cardiac monitoring. The monitor shows a rate of 83 bpm with sinus rhythm. Laboratory studies: As stated above and show below. Imaging studies: See below. Radiographic imaging was reviewed by myself Consultation(s): I discussed this case with Dr. Babin who is on-call for the [facility] group. ED COURSE: Procedures: none Critical Care: I have personally spent greater than 45 minutes of critical care time in the direct management of this patient. This includes bedside care, interpretation of diagnostic studies, and testing, discussion with consultants, patient, and family members, and other required patient management activities. This 45 minutes is in excess of all separately billable procedures. Past Med/Surg History Problem List (Updated 02/01/24 @ 10:48 by Wiliam Steinberg DO) Anemia (Acute) UGIB (upper gastrointestinal bleed) (Acute) Hypokalemia (Acute) Hypoxia (Acute) Chest pain (Acute) Hypomagnesemia (Acute) Acute exacerbation of chronic obstructive pulmonary disease (Acute) Right shoulder pain (Acute) EARLINE (acute kidney injury) (Acute) Noncompliance with medication regimen 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 Acute pancreatitis Sepsis Diarrhea (Acute) Abnormal CT of the head (Acute) Weakness (Acute) Hypomagnesemia (Acute) Anemia (Acute) Acute renal failure (ARF) (Acute) Hypomagnesemia Anemia Elevated LFTs Hyperlipidemia Hypertension Acute alcoholic hepatitis (Acute) Benign localized prostatic hyperplasia with lower urinary tract symptoms (LUTS) Prediabetes Presumed- Hgb A1C 6.3 on 10/12/22 Encounter for pre-operative examination Renal insufficiency Dyspnea Left rotator cuff tear Spermatocele Abnormal CT lung screening Coronary artery calcification seen on CAT scan chest CT 03/2020 negative stress test 06/2021 Radial head fracture, closed Alcohol abuse Left-sided chest pain (Acute) Current smoker Adjustment disorder with depressed mood (Acute) Allergic rhinitis (Acute) Barretts esophagus (Acute) Chronic cough (Acute) Colon polyps (Acute) Hiatal hernia (Acute) Inhibited sexual excitement (Acute) Obstructive sleep apnea (Acute) no device Periodic limb movements of sleep (Acute) Small airways disease (Acute) prn inhaler for this > rare res inh use Asthma INHALER DAILY Hyperlipidemia (Chronic) Hypertension (Chronic) Medical History Alcohol withdrawal Hypothyroidism GERD (gastroesophageal reflux disease) UTI (urinary tract infection) Thrombocytopenia Acute dehydration Anxiety Hypothyroidism GERD (gastroesophageal reflux disease) Surgical History S/P wrist surgery R WRIST REPAIR OF TORN TENDON Hx of vasectomy History of colonoscopy History of esophagogastroduodenoscopy (EGD) History of appendectomy History of tooth extraction WISDOM TEETH History of tonsillectomy S/P LASIK surgery of both eyes History of lumbar spinal fusion Family History Father Alcohol abuse COPD (chronic obstructive pulmonary disease) Hypertension Reported family history of early sudden deaths Mother Hypertension Hyperlipidemia Brother Hypertension Sister Graves' disease Social History Smoking Status: Current every day smoker Tobacco Type: Smokeless Tobacco (Dip or Chew) Cigarettes Per Day: 1 ppd; Second Hand Exposure: No; Do You Dip or Chew Tobacco: No; Hx Alcohol Use: Yes Alcohol type: hard liquor Hx Substance Use: No Preferred Language: Georgian Visual Impairment: Limited Hearing Ability: Normal [employer] Project [employer] Required: No Beliefs That Will Affect Care: None marital status: Current Living Situation: Significant Other Current Living Situation Comment: LIVES WITH GIRLFRIEND current occupational status: employed current occupation: [employer] Feels Safe at Home: Yes Childhood Exposure to Second-Hand Smoke: No caffeine: Yes Dental Care, Regularly: Yes Physical Activity Frequency: Does not Exercise Seatbelt Use: always Sunscreen Use: No Assistive Devices: Glasses Allergies Allergies Allergy/AdvReac Type Severity Reaction Status Date / Time Sulfa (Sulfonamide Allergy Intermediate HIVES Verified 12/20/23 12:12 Antibiotics) MARGARET Inhibitors AdvReac Intermediate COUGH Verified 12/20/23 12:12 amlodipine AdvReac Intermediate FATIGUE Verified 12/20/23 12:12 clonidine AdvReac Intermediate HEADACHES Verified 12/20/23 12:12 varenicline [From Chantix] AdvReac Intermediate JITTERY/SHA Verified 12/20/23 12:12 [facility] Home Meds Home Medications Medication Instructions Recorded Confirmed ezetimibe 10 mg tablet 10 mg PO HS 07/29/21 12/20/23 albuterol sulfate 90 mcg/actuation 1 puff inhalation Q4 PRN sob 10/17/23 12/20/23 aerosol inhaler folic acid 1 mg tablet 1 mg PO QAM 11/14/23 12/20/23 furosemide 40 mg tablet 40 mg PO QAM 11/14/23 12/20/23 valsartan 320 mg tablet 320 mg PO QAM 11/14/23 12/20/23 Previous Rx's Medication Instructions Recorded atorvastatin 40 mg tablet 40 mg PO QPM #90 tabs 09/01/22 escitalopram oxalate 20 mg tablet 20 mg PO QPM #90 tabs 06/09/23 levothyroxine 125 mcg tablet 125 mcg PO QAM #30 tabs 08/21/23 omeprazole 40 mg capsule,delayed 40 mg PO BID #60 caps 08/21/23 release loperamide 2 mg capsule 2 mg PO Q2H PRN loose stool #30 10/20/23 caps magnesium oxide 400 mg (241.3 mg 400 mg PO DAILY #7 tabs 12/20/23 magnesium) tablet (MagOx) magnesium oxide 400 mg (241.3 mg 400 mg PO DAILY #7 tabs 12/20/23 magnesium) tablet (MagOx) potassium chloride 20 mEq 20 meq PO DAILY #7 tabs 12/20/23 tablet,extended release potassium chloride 20 mEq 20 meq PO DAILY #7 tabs 12/20/23 tablet,extended release Results & Data (ED) Vital Signs Vital Signs - 24 hr 02/01/24 08:12 02/01/24 08:14 02/01/24 08:18 Temperature Temperature Source Pulse Rate 100 H Pulse Rate [Right Finger] Respiratory Rate Respiratory Effort / Characteristics Non-Labored Respiratory Depth Normal Respiratory Pattern Regular Blood Pressure Blood Pressure [Left Arm] Blood Pressure Mean Blood Pressure Mean [Left Arm] Blood Pressure Position Blood Pressure Position [Left Arm] Pulse Oximetry 74 L Oxygen Delivery Method Nasal Cannula Nasal Cannula Oxygen Flow Rate 4 0 Sepsis Recent Fever Within 48 Hours Sepsis New/Unexplained Change in Mental Status Sepsis Action Taken by Nursing Oxygen Flow Rate - Titration 4 Pulse Oximetry Post Tiitration 100 02/01/24 08:18 02/01/24 08:28 02/01/24 08:28 Temperature 36.6 C Temperature Source Oral Pulse Rate 89 93 H Pulse Rate [Right Finger] Respiratory Rate 15 18 Respiratory Effort / Characteristics Non-Labored Respiratory Depth Respiratory Pattern Blood Pressure 95/64 L Blood Pressure [Left Arm] Blood Pressure Mean 74 Blood Pressure Mean [Left Arm] Blood Pressure Position Lying Blood Pressure Position [Left Arm] Pulse Oximetry 100 100 100 Oxygen Delivery Method Nasal Cannula Room Air Nasal Cannula Oxygen Flow Rate 4 3 4 Sepsis Recent Fever Within 48 Hours No Sepsis New/Unexplained Change in Mental Status No Sepsis Action Taken by Nursing No Action Required Oxygen Flow Rate - Titration 3 Pulse Oximetry Post Tiitration 100 02/01/24 08:31 02/01/24 10:36 Temperature 36.6 C Temperature Source Oral Pulse Rate Pulse Rate [Right Finger] 87 83 Respiratory Rate 18 18 Respiratory Effort / Characteristics Non-Labored Non-Labored Respiratory Depth Respiratory Pattern Blood Pressure Blood Pressure [Left Arm] 118/87 Blood Pressure Mean Blood Pressure Mean [Left Arm] 97 Blood Pressure Position Blood Pressure Position [Left Arm] Lying Pulse Oximetry 100 100 Oxygen Delivery Method Nasal Cannula Room Air Oxygen Flow Rate 3 Sepsis Recent Fever Within 48 Hours Sepsis New/Unexplained Change in Mental Status Sepsis Action Taken by Nursing Oxygen Flow Rate - Titration Pulse Oximetry Post Tiitration Home Medications Current Medication List: was personally reviewed by me Laboratory Data Attestation: I reviewed the patient's lab results. 02/01/24 08:30 02/01/24 08:30 Lab Results 02/01/24 02/01/24 02/01/24 Range/Units 08:23 08:30 09:59 WBC 7.64 (4.8-10.8) K/ul RBC 2.22 L (4.70-6.10) M/uL Hgb 7.1 L (14.0-18.0) g/dl Hct 22.1 L (42.0-52.0) % MCV 99.5 (80.0-100.0) fL MCH 32.0 (25.0-34.0) pg MCHC 32.1 (32.0-36.0) g/dL RDW Std Deviation 71.5 H (36.4-46.3) fL RDW Coeff of Joshua 19.6 H (11.5-14.5) % Plt Count 233 (130-400) K/uL MPV 10.2 (9.4-12.4) fL Immature Gran % (Auto) 1.6 % Neut % (Auto) 80.7 % Lymph % (Auto) 10.6 % Levy % (Auto) 6.9 % Eos % (Auto) 0.1 % Baso % (Auto) 0.1 % Neut # (Auto) 6.16 (1.40-6.50) K/uL Lymph # (Auto) 0.81 L (1.20-3.40) K/uL Levy # (Auto) 0.53 (0.11-0.59) K/uL Eos # (Auto) 0.01 (0.00-0.50) K/uL Baso # (Auto) 0.01 (0.00-0.20) K/uL Immature Gran # (Auto) 0.12 (0.01-0.20) K/uL Absolute Nucleated RBC 0.09 (0.00-0.12) K/uL Nucleated RBC % (auto) 1.2 % Hypochromasia Present PT 12.5 H (9.0-12.0) Seconds INR 1.2 H (0.9-1.1) APTT 25 (21-31) Seconds PTT Ratio 0.9 VBG pH 7.39 (7.36-7.41) VBG pCO2 34 L (38-50) mmHg VBG pO2 < 20 mmHg VBG HCO3 21 mmol/L VBG O2 Saturation < 60.0 % VBG Base Excess -3.6 mEq/L Sodium 132 L (136-145) mmol/L Potassium 2.6 L (3.5-5.1) mmol/L Chloride 93 L (98-107) mmol/L Carbon Dioxide 22 (21-32) mmol/L Anion Gap 17 H (3-11) BUN 9 (6-23) mg/dl Creatinine 0.91 (0.6-1.4) mg/dl Est Cr Clr Drug Dosing 81.7 ml/min Est GFR ( Amer) 106.5 ml/min Est GFR (Non-Af Amer) 91.9 ml/min BUN/Creatinine Ratio 9.9 L (10-20) Glucose 139 H (70-99(Fasting)) mg/dl Lactate (0.4-2.0) mmol/L Calcium 8.4 L (8.6-10.3) mg/dl Magnesium 1.3 L (1.7-2.4) mg/dl Total Bilirubin 1.3 H (0.2-1.0) mg/dl AST 60 H (13-39) U/L ALT 15 (7-52) U/L Alkaline Phosphatase 209 H (34-104) U/L Troponin I High Sens 15.2 (0-20) pg/ml Total Protein 6.5 (6.0-8.3) gm/dl Albumin 3.5 (3.4-5.0) gm/dl Globulin 3.0 (2.5-4.0) gm/dl Albumin/Globulin Ratio 1.2 (0.9-2) SARS-CoV-2 (PCR) NEGATIVE (Negative) Influenza Type A (PCR) Negative (Neg) Influenza Type B (PCR) Negative (Neg) RSV (RT-PCR) Negative (Neg) Crossmatch See Detail 02/01/24 Range/Units 10:18 WBC (4.8-10.8) K/ul RBC (4.70-6.10) M/uL Hgb (14.0-18.0) g/dl Hct (42.0-52.0) % MCV (80.0-100.0) fL MCH (25.0-34.0) pg MCHC (32.0-36.0) g/dL RDW Std Deviation (36.4-46.3) fL RDW Coeff of Joshua (11.5-14.5) % Plt Count (130-400) K/uL MPV (9.4-12.4) fL Immature Gran % (Auto) % Neut % (Auto) % Lymph % (Auto) % Levy % (Auto) % Eos % (Auto) % Baso % (Auto) % Neut # (Auto) (1.40-6.50) K/uL Lymph # (Auto) (1.20-3.40) K/uL Levy # (Auto) (0.11-0.59) K/uL Eos # (Auto) (0.00-0.50) K/uL Baso # (Auto) (0.00-0.20) K/uL Immature Gran # (Auto) (0.01-0.20) K/uL Absolute Nucleated RBC (0.00-0.12) K/uL Nucleated RBC % (auto) % Hypochromasia PT (9.0-12.0) Seconds INR (0.9-1.1) APTT (21-31) Seconds PTT Ratio VBG pH (7.36-7.41) VBG pCO2 (38-50) mmHg VBG pO2 mmHg VBG HCO3 mmol/L VBG O2 Saturation % VBG Base Excess mEq/L Sodium (136-145) mmol/L Potassium (3.5-5.1) mmol/L Chloride (98-107) mmol/L Carbon Dioxide (21-32) mmol/L Anion Gap (3-11) BUN (6-23) mg/dl Creatinine (0.6-1.4) mg/dl Est Cr Clr Drug Dosing ml/min Est GFR ( Amer) ml/min Est GFR (Non-Af Amer) ml/min BUN/Creatinine Ratio (10-20) Glucose (70-99(Fasting)) mg/dl Lactate 2.2 H* (0.4-2.0) mmol/L Calcium (8.6-10.3) mg/dl Magnesium (1.7-2.4) mg/dl Total Bilirubin (0.2-1.0) mg/dl AST (13-39) U/L ALT (7-52) U/L Alkaline Phosphatase (34-104) U/L Troponin I High Sens (0-20) pg/ml Total Protein (6.0-8.3) gm/dl Albumin (3.4-5.0) gm/dl Globulin (2.5-4.0) gm/dl Albumin/Globulin Ratio (0.9-2) SARS-CoV-2 (PCR) (Negative) Influenza Type A (PCR) (Neg) Influenza Type B (PCR) (Neg) RSV (RT-PCR) (Neg) Crossmatch Administered Medications Magnesium Sulfate/Dextrose (Magnesium Sulfate / D5w) 1 gm in 100 mls @ 100 mls/hr IV Q1H NAEEM Stop: 02/01/24 11:33 Last Admin: 02/01/24 10:10 Dose: 100 mls/hr Documented By: MAG Discontinued Medications Albuterol (Albut/Ipratrop 3mg/0.5mg Neb 3 Ml Vial) 3 ml NEB NOW STA; Protocol Stop: 02/01/24 09:24 Last Admin: 02/01/24 09:27 Dose: 3 ml Documented By: MAG Sodium Chloride (Nss) 1,000 mls @ 999 mls/hr IV .Q1H1M ONE Stop: 02/01/24 09:33 Last Infusion: 02/01/24 09:48 Dose: Infused Documented By: Admin: 02/01/24 08:41 Dose: 999 mls/hr Documented By: STEVE Potassium Chloride (K Felice / Wtr) 10 meq in 100 mls @ 100 mls/hr IV ONE ONE Stop: 02/01/24 10:32 Last Admin: 02/01/24 10:07 Dose: 100 mls/hr Documented By: MAG Pantoprazole Sodium 40 mg/ (Syringe) 10 mls @ 5 mls/min IV NOW ONE Stop: 02/01/24 09:41 Last Admin: 02/01/24 10:04 Dose: 5 mls/min Documented By: MAG Famotidine (Pepcid 20mg Iv Push) 20 mg in 5 mls @ 2.5 mls/min IV NOW STA Stop: 02/01/24 09:41 Last Admin: 02/01/24 09:49 Dose: 2.5 mls/min Documented By: MAG Potassium Chloride (Potassium Chloride 10 Meq Tabcr) 20 meq PO NOW STA Stop: 02/01/24 09:34 Last Admin: 02/01/24 09:52 Dose: 20 meq Documented By: MAG Imaging Data Attestation: I personally reviewed and interpreted this imaging study as follows: My Impression: 1 view chest x-ray was obtained in the emergency department. My interpretation is no free air or definite infiltrate, final report below. Radiologist's Impression: Chest X-Ray 02/01/24 08:10 XR chest 1V portable HISTORY: Dyspnea COMPARISON: Chest 11/14/2023. FINDINGS: The lungs are clear. Cardiac silhouette is normal in size. No pleural effusions. No pneumothorax. IMPRESSION: No acute process. ACT 112: Negative or not required by law. Electronically signed by: Low Cuello M.D. 02/01/2024 9:20 AM Discharge Plan Visit Data Chief Complaint: Shortness of Breath/Dyspnea Stated Complaint: SOB/Chest Tightness ED Provider: Wiliam Steinberg Discharge Problem: Acute exacerbation of chronic obstructive pulmonary disease, Hypomagnesemia, Chest pain, Hypoxia, Hypokalemia, UGIB (upper gastrointestinal bleed), Anemia Patient Disposition: Being Evaluated by Hospitalist Forms Stand Alone Forms: My [facility] Prescriptions Prescriptions: No Action atorvastatin 40 mg tablet 40 mg PO QPM Qty: 90 3RF Hold Instructions: Resume on 09/15/23. Rx Instructions: PER PT "DON'T KNOW WHEN LAST TOOK MEDS". LAST FILLED 07/13/23 FOR 90 DAYS. escitalopram oxalate 20 mg tablet 20 mg PO QPM Qty: 90 1RF Rx Instructions: PER PT "DON'T KNOW WHEN LAST TOOK MEDS". LAST FILLED 06/09/23 FOR 90 DAYS ezetimibe 10 mg tablet 10 mg PO HS Hold Instructions: Resume on 09/15/23. Rx Instructions: PER PT "DON'T KNOW WHEN LAST TOOK MEDS". LAST FILLED 06/28/23 FOR 90 DAYS omeprazole 40 mg capsule,delayed release(DR/EC) 40 mg PO BID Qty: 60 3RF Rx Instructions: PER PT "DON'T KNOW WHEN LAST TOOK MEDS". levothyroxine 125 mcg tablet 125 mcg PO QAM Qty: 30 3RF Rx Instructions: PER PT "DON'T KNOW WHEN LAST TOOK MEDS". LAST FILLED 07/13/23 FOR 90 DAYS furosemide 40 mg tablet 40 mg PO QAM Rx Instructions: PER PT "DON'T KNOW WHEN LAST TOOK MEDS". LAST FILLED 08/21/23 FOR 30 DAYS valsartan 320 mg tablet 320 mg PO QAM Rx Instructions: PER PT "DON'T KNOW WHEN LAST TOOK MEDS". LAST FILLED 08/22/23 FOR 30 DAYS. folic acid 1 mg tablet 1 mg PO QAM Rx Instructions: PER PT "DON'T KNOW WHEN LAST TOOK MEDS". LAST FILLED 08/21/23 FOR 30 DAYS albuterol sulfate 90 mcg/actuation HFA aerosol inhaler 1 puff inhalation Q4 PRN (Reason: sob) Rx Instructions: PER PT "DON'T KNOW WHEN LAST TOOK MEDS". LAST FILLED 07/23/23. loperamide 2 mg Capsule 2 mg PO Q2H PRN (Reason: loose stool) Qty: 30 0RF Rx Instructions: PER PT "DON'T KNOW WHEN LAST TOOK MEDS". magnesium oxide [MagOx] 400 mg (241.3 mg magnesium) tablet 400 mg PO DAILY Qty: 7 0RF potassium chloride 20 mEq tablet extended release 20 meq PO DAILY Qty: 7 0RF magnesium oxide [MagOx] 400 mg (241.3 mg magnesium) tablet 400 mg PO DAILY Qty: 7 0RF potassium chloride 20 mEq tablet extended release 20 meq PO DAILY Qty: 7 0RF Referrals Referrals: PCP,NO [Physician] - Discharge Problem: Chest pain Qualifiers: Chest pain type: unspecified Qualified Code(s): R07.9 - Chest pain, unspecified Anemia Qualifiers: Anemia type: unspecified type Qualified Code(s): D64.9 - Anemia, unspecified
[2024-02-01] MEDS: SODIUM CHLORIDE 0.9% 1,000 ML IV ONE (08:41)
[2024-02-01 08:49] LABS: Base Excess VBG -3.6 mEq/L; HCO3 VBG 21 mmol/L; Oxygen Saturation VBG < 60.0 %; PCO2 VBG 34 mmHg (38-50); PO2 VBG < 20 mmHg; pH VBG 7.39 (7.36-7.41)
[2024-02-01 09:03] LABS: Hematocrit (blood only) 22.1 % (42.0-52.0); Hemoglobin 7.1 g/dl (14.0-18.0); Mean Corpuscular Hgb Conc 32.1 g/dL (32.0-36.0); Mean Corpuscular Volume 99.5 fL (80.0-100.0); Mean Platelet Volume 10.2 fL (9.4-12.4); Nucleated RBC # (auto) 0.09 K/uL (0.00-0.12); Nucleated RBC % (auto) 1.2 %; Platelet Count 233 K/uL (130-400); RDW Coefficient of Variation 19.6 % (11.5-14.5); RDW Standard Deviation 71.5 fL (36.4-46.3); Red Blood Count 2.22 M/uL (4.70-6.10); White Blood Count 7.64 K/ul (4.8-10.8)
[2024-02-01 09:11] LABS: Basophils # (auto) 0.01 K/uL (0.00-0.20); Basophils % (auto) 0.1 %; Eosinophils # (auto) 0.01 K/uL (0.00-0.50); Eosinophils % (auto) 0.1 %; Hypochromasia Present; Immature Granulocytes # (auto) 0.12 K/uL (0.01-0.20); Immature Granulocytes % (auto) 1.6 %; Lymphocytes # (auto) 0.81 K/uL (1.20-3.40); Lymphocytes % (auto) 10.6 %; Monocytes # (auto) 0.53 K/uL (0.11-0.59); Monocytes % (auto) 6.9 %; Neutrophils # (auto) 6.16 K/uL (1.40-6.50); Neutrophils % (auto) 80.7 %
[2024-02-01 09:12] LABS: Albumin Globulin Ratio 1.2 (0.9-2); Albumin Level 3.5 gm/dl (3.4-5.0); BUN Creatinine Ratio 9.9 (10-20); Bilirubin,Total 1.3 mg/dl (0.2-1.0); Calcium 8.4 mg/dl (8.6-10.3); Creatinine Clr Calc Pharmacy 81.7 ml/min; Est GFR (African American) 106.5 ml/min; Est GFR (Non-African American) 91.9 ml/min; Magnesium 1.3 mg/dl (1.7-2.4); Potassium 2.6 mmol/L (3.5-5.1); Total Protein 6.5 gm/dl (6.0-8.3)
[2024-02-01 09:16] LABS: Influenza A virus by PCR Negative (Neg); Influenza B virus by PCR Negative (Neg); RSV by PCR Negative (Neg); SARS CoV2 RNA(COVID-19) Ceph NEGATIVE (Negative)
[2024-02-01 09:18] LABS: Troponin I High Sensitivity 15.2 pg/ml (0-20)
--- NOTE | 2024-02-01 09:22 | XRay Report ---
XR chest 1V portable HISTORY: Dyspnea COMPARISON: Chest 11/14/2023. FINDINGS: The lungs are clear. Cardiac silhouette is normal in size. No pleural effusions. No pneumot horax. IMPRESSION: No acute process. ACT 112: Negative or not required by law. Electronically signed by: Low Cuello M.D. 02/01/2024 9:20 AM
[2024-02-01] MEDS: ALBUT/IPRATROP 3MG/0.5MG NEB 3 ML VIAL NEB STA (09:27)
[2024-02-01 09:28] LABS: INR 1.2 (0.9-1.1); Partial Thromboplastin Ratio 0.9; Partial Thromboplastin Time 25 Seconds (21-31); Prothrombin Time 12.5 Seconds (9.0-12.0)
[2024-02-01] MEDS: FAMOTIDINE 20MG IV PUSH 20 MG/5 ML SYR IV STA (09:49)
[2024-02-01] MEDS: POTASSIUM CHLORIDE 10 MEQ TABCR PO STA (09:52)
[2024-02-01] MEDS: PANTOprazole 40 MG in SYRINGE 0 ML IV ONE (10:04)
--- NOTE | 2024-02-01 10:06 | History & Physical Report ---
Date of Service February 01, 2024 Assessment & Plan (1) Asthma exacerbation: Plan: Admit to the PCU on telemetry and pulse oximetry Currently stable on 2 L nasal cannula and in no respiratory distress Presented to the ED via EMS progressive shortness of breath with substernal chest tightness which started approximately 2 to 3 days ago After receiving 125 mg IV Solu-Medrol, DuoNeb treatment and EMS, and an albuterol nebulizer in the ED symptoms have significantly improved but have not yet resolved Suspect this exacerbation is multifactorial including ongoing tobacco abuse, patient ran out of home medications multiple months ago with no recent PCP follow-up Is without fever, chills, productive cough to suggest infection, no sign of pneumonia on chest x-ray, COVID-19/influenza/RSV screen are negative Patient could have some component of COPD due to his lung history of tobacco abuse previous formal testing Will continue with 40 mg IV Solu-Medrol 3 times daily, will start 4 times daily are budesonide and formoterol nebulizer treatments, 4 times daily are DuoNebs Incentive spirometry, flutter therapy, as needed O2 to keep SpO2 between 89- 92% Continue stressed importance of smoking cessation to prevent recurrent exacerbations 0.4 Patient will need refills of his albuterol inhaler and would likely benefit from maintenance inhaler on discharge Bilateral SCDs for DVT prophylaxis Clear liquid diet until evaluated by gastroenterology AM CBC, CMP, mag, PT/INR, fasting lipid panel, hemoglobin A1c (2) Anemia: Plan: Hemoglobin noted to be 7.1 today Long history of anemia multifactorial in nature including iron deficiency, B12/folate deficiency, chronic alcohol abuse Patient's noted multiple days of melanotic stool, is heme positive in the ED today Was typed and screened in the ED, will type and cross and hold 2 units PRBCs for now Blood consent was obtained at the time of the admission GI consult has been placed Status post 40 mg IV pantoprazole in the ED, will continue with 40 mg IV twice daily moving forward Will obtain anemia workup prior to patient receiving any blood products Monitor CBC every 6 hours transfuse for hemoglobin less than 7 or decompensation (3) Hypokalemia: Plan: Potassium of 2.6 Mag noted to be 1.3 Patient had known history of hypokalemia and hypomagnesemia due to chronic alcohol abuse and poor oral intake Was previously on potassium and magnesium supplementation but has not refilled prescriptions in multiple months Does have T wave inversion on EKG today Status post 10 mEq IV KCl and 20M EQ p.o. KCl in the ED along with 1 g IV mag sulfate Will order an additional 3 bags 1 g IV mag sulfate now Patient has difficulty swallowing p.o. potassium supplements, waiting for nurse to confirm when she is left with 1 L NSS bolus ordered in the ED Will either order additional bags of 10 mEq IV KCl or give 20 mEq KCl at maintenance fluids moving forward Continue to monitor on telemetry, will repeat BMP and mag level this evening Monitor electrolytes daily (4) Alcohol abuse: Plan: Patient has a long history of alcohol abuse Reports that he was drinking approximately 1 L of rum daily until he quit, cold turkey, approximately 4 days ago Denies any other alcohol intake since quitting 4 days ago Alcohol level ordered at time of admission is negative Patient is currently without signs of withdrawal at this time but is high risk Will start AWSS at risk protocol with IV Ativan as needed Will give 200 mg IV thiamine, 1 mg p.o. folic acid, and 100 mcg p.o. B12 now Will continue 20 mg IV thiamine 1 mg p.o. folic acid, 100 mcg p.o. B12 for now Follow B12 and folic acid levels ordered at time of admission (5) High anion gap metabolic acidosis: Plan: Anion gap of 17 with bicarb within normal limits Lactate ordered at the time of admission was minimally elevated at 2.2, alcohol level is negative Will obtain salicylate level now Continue IV hydration and will follow repeat BMP this evening (6) Hypothyroidism: Plan: Will obtain TSH with free T4 as needed the time of admission Will restart levothyroxine lab results (7) Hypertension: Plan: Currently stable Has been off valsartan for multiple months Continue to monitor off antihypertensives for now and restart as needed (8) Obstructive sleep apnea: Plan: Does not have a CPAP machine at home Will order at bedtime CPAP to be used while admitted Will consult case management to see if they can coordinate patient getting a CPAP machine prior to discharge (9) Tobacco abuse: Plan: Currently smoking approximately 1/2 pack/day Will order nicotine patch at time of admission Continue to stressed the importance of cessation Plan The patient was discussed with Dr. Babin at the time of the admission History of Present Illness Chief Complaint: SOB Primary Care Provider: JESSEE PCP Alexei is a 58-year-old male with PMH of alcohol use disorder, alcohol withdrawal seizures, central pontine myelinolysis, asthma, hypothyroidism, HLD, GERD, Hunter's esophagus, SUZI, and anxiety who presented to the [facility] ED via EMS on 02/01/2024 with complaints of shortness of breath and chest tightness. Patient arrived to the ED stable on 4 L nasal cannula with mild hypotension of 95/64 but otherwise stable. Labs were significant for hemoglobin of 7.1 (down from 7.5 as of 11/24/2023), hematocrit of 22, MCV of 99, MCHC of 32, INR 1.2, VBG pH of 7.39 with pCO2 of 34 and pO2 less than 20, potassium of 2.6, mag of 1.3, anion gap of 17 with bicarb within normal limits, total bili of 1.3, AST of 60, ALT of 15, alk phos 2 9, with COVID-19, influenza, and RSV negative. Chest x-ray was read as negative for acute findings. ED explained that patient reported recent melanotic stool over the past 3 days, he was found to be heme positive on testing in the ED. Patient reportedly received 125 mg IV Solu-Medrol and DuoNeb treatment by EMS and route. Prior to admission the patient was given albuterol nebulizing treatment, 20 mg IV famotidine, 40 mg IV pantoprazole, 1 g IV mag sulfate, 10 mEq IV KCl, 20M EQ p.o. KCl, and 1 L NSS. Patient was sitting in bed no acute distress at the time of exam, currently stable on 2 L nasal cannula and in no respiratory distress. States that he has been developing progressive shortness of breath and wheezing over the past 2 to 3 days. Still smoking approximately half a pack of cigarettes a day. When asked, he states that he ran out all his home prescription medications "a few months ago" and has not seen his PCP in approximately 8 months. This includes his home albuterol rescue inhaler which he has not had for multiple months. Denies recent fever or chills, has been having a nonproductive cough with substernal chest tightness which has resolved after receiving breathing treatments by EMS and in the ED prior to admission. Denies recent nausea, vom iting, hematemesis, dysuria, hematuria, abdominal pain, diarrhea, lower extremity swelling, and recent trauma. When asked, he confirms that he has been experiencing dark stool for "about 3 days". Denies recent NSAID use such as Advil, Aleve, Motrin. Denies recent use of aspirin. We discussed his recent alcohol consumption. He explains that he recently started a 30-day program for alcohol cessation. His last drink was approximately 4 days ago. Prior to that he was drinking approximately 1 L of rum a day. States that he quit cold turkey approximately 4 days ago but denies any recent withdrawal symptoms. We discussed CODE STATUS he confirms that he is a full code and would want his daughter to make medical decisions for him if he cannot make them himself. Please refer to Dr. Babin's attestation for any changes to the treatment plan Allergies Allergy/AdvReac Type Severity Reaction Status Date / Time Sulfa (Sulfonamide Allergy Intermediate HIVES Verified 02/01/24 11:11 Antibiotics) MARGARET Inhibitors AdvReac Intermediate COUGH Verified 02/01/24 11:11 amlodipine AdvReac Intermediate FATIGUE Verified 02/01/24 11:11 clonidine AdvReac Intermediate HEADACHES Verified 02/01/24 11:11 varenicline [From Chantix] AdvReac Intermediate JITTERY/SHA Verified 02/01/24 11:11 KES Home Medications Medication Instructions Recorded Confirmed Type ezetimibe 10 mg tablet 10 mg PO HS 07/29/21 02/01/24 History atorvastatin 40 mg tablet 40 mg PO QPM #90 tabs 09/01/22 02/01/24 Rx escitalopram oxalate 20 mg tablet 20 mg PO QPM #90 tabs 06/09/23 02/01/24 Rx levothyroxine 125 mcg tablet 125 mcg PO QAM #30 tabs 08/21/23 02/01/24 Rx omeprazole 40 mg capsule,delayed 40 mg PO BID #60 caps 08/21/23 02/01/24 Rx release albuterol sulfate 90 mcg/actuation 1 puff inhalation Q4 PRN sob 10/17/23 02/01/24 History aerosol inhaler loperamide 2 mg capsule 2 mg PO Q2H PRN loose stool #30 10/20/23 02/01/24 Rx caps folic acid 1 mg tablet 1 mg PO QAM 11/14/23 02/01/24 History furosemide 40 mg tablet 40 mg PO QAM 06/04/24 08/22/24 History valsartan 320 mg tablet 320 mg PO QAM 11/14/23 02/01/24 History magnesium oxide 400 mg (241.3 mg 400 mg PO DAILY #7 tabs 12/20/23 02/01/24 Rx magnesium) tablet (MagOx) potassium chloride 20 mEq 20 meq PO DAILY #7 tabs 12/20/23 02/01/24 Rx tablet,extended release Past Med/Surg History Problem List (Updated 02/01/24 @ 11:24 by Carlos Zuleta PA-C) Tobacco abuse High anion gap metabolic acidosis Asthma exacerbation Anemia (Acute) UGIB (upper gastrointestinal bleed) (Acute) Hypokalemia (Acute) Hypoxia (Acute) Chest pain (Acute) Hypomagnesemia (Acute) Acute exacerbation of chronic obstructive pulmonary disease (Acute) Right shoulder pain (Acute) EARLINE (acute kidney injury) (Acute) Noncompliance with medication regimen 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 Acute pancreatitis Sepsis Diarrhea (Acute) Abnormal CT of the head (Acute) Weakness (Acute) Hypomagnesemia (Acute) Anemia (Acute) Acute renal failure (ARF) (Acute) Hypomagnesemia Anemia Elevated LFTs Hyperlipidemia Hypertension Acute alcoholic hepatitis (Acute) Benign localized prostatic hyperplasia with lower urinary tract symptoms (LUTS) Prediabetes Presumed- Hgb A1C 6.3 on 10/12/22 Encounter for pre-operative examination Renal insufficiency Dyspnea Left rotator cuff tear Spermatocele Abnormal CT lung screening Coronary artery calcification seen on CAT scan chest CT 03/2020 negative stress test 06/2021 Radial head fracture, closed Alcohol abuse Left-sided chest pain (Acute) Current smoker Adjustment disorder with depressed mood (Acute) Allergic rhinitis (Acute) Barretts esophagus (Acute) Chronic cough (Acute) Colon polyps (Acute) Hiatal hernia (Acute) Inhibited sexual excitement (Acute) Obstructive sleep apnea (Acute) no device Periodic limb movements of sleep (Acute) Small airways disease (Acute) prn inhaler for this > rare res inh use Asthma INHALER DAILY Hyperlipidemia (Chronic) Hypertension (Chronic) Medical History Alcohol withdrawal Hypothyroidism GERD (gastroesophageal reflux disease) UTI (urinary tract infection) Thrombocytopenia Acute dehydration Anxiety Hypothyroidism GERD (gastroesophageal reflux disease) Surgical History S/P wrist surgery R WRIST REPAIR OF TORN TENDON Hx of vasectomy History of colonoscopy History of esophagogastroduodenoscopy (EGD) History of appendectomy History of tooth extraction WISDOM TEETH History of tonsillectomy S/P LASIK surgery of both eyes History of lumbar spinal fusion Family History Father Alcohol abuse COPD (chronic obstructive pulmonary disease) Hypertension Reported family history of early sudden deaths Mother Hypertension Hyperlipidemia Brother Hypertension Sister Graves' disease Social History Smoking Status: Heavy tobacco smoker Tobacco Type: Cigarettes Cigarettes Per Day: 1 PPD; Second Hand Exposure: No; Do You Dip or Chew Tobacco: No; Tobacco Cessation Education Requested by Patient: No Hx Alcohol Use: Yes Alcohol type: hard liquor Hx Substance Use: No Preferred Language: Frisian Communication Ability: Effective Visual Impairment: Limited Hearing Ability: Normal Insurance Sales Specialist Required: No Beliefs That Will Affect Care: None marital status: Current Living Situation: Alone Current Living Situation Comment: Live at home alone current occupational status: employed current occupation: [employer] Other Information That Helps Us Care for You: No Feels Safe at Home: Yes Safety Concerns: Feels Safe At This Time Childhood Exposure to Second-Hand Smoke: No caffeine: Yes Dental Care, Regularly: Yes Physical Activity Frequency: Does not Exercise Seatbelt Use: always Sunscreen Use: No Assistive Devices: Glasses Physical Exam Physical Exam: Physical Exam: General: In no acute distress, stated age, chronically ill-appearing but nontoxic HEENT: Normocephalic, atraumatic, trace scleral icterus, pupils around round, symmetrical, and reactive to light, dry mucus membranes, trachea midline, no thyromegaly Chest/Pulm: No respiratory distress, symmetrical chest expansion, scattered expiratory wheezes throughout Cardiac: RRR, no murmurs noted Abdomen: Negative for ascites and bruising, normoactive bowel sounds, soft, non-tender to palpation throughout Musculoskeletal: Symmetrical and without signs of acute trauma, upper and lower extremities with full ROM, no atrophy, spasticity, or flaccidity Extremities: Radial, dorsalis pedis, and posterior tibial pulses are intact and symmetrical, no edema noted in the BL LE's Skin: Warm, dry, no rashes , lesions, or scars noted Neuro: Alert and oriented to person, place, month, year, and president, no focal defects, no tremors noted Psych: No acute distress, calm and cooperative during the exam Results & Data Results & Data Vital Signs (Past 12 Hours) Vital Signs Temp Pulse Pulse Resp BP Pulse Ox O2 Del Method 02/01/24 08:31 36.6 C 87 18 100 Nasal Cannula 02/01/24 08:28 100 Nasal Cannula 02/01/24 08:28 93 H 18 100 Room Air 02/01/24 08:18 36.6 C 89 15 95/64 L 100 Nasal Cannula 02/01/24 08:18 100 Nasal Cannula 02/01/24 08:14 100 H 02/01/24 08:12 Nasal Cannula O2 Flow Rate 02/01/24 08:31 3 02/01/24 08:28 4 02/01/24 08:28 3 02/01/24 08:18 4 02/01/24 08:18 4 02/01/24 08:14 02/01/24 08:12 4 Laboratory Results Abnormal lab results 02/01/24 02/01/24 02/01/24 Range/Units 08:30 09:59 10:18 RBC 2.22 L (4.70-6.10) M/uL Hgb 7.1 L (14.0-18.0) g/dl Hct 22.1 L (42.0-52.0) % RDW Std Deviation 71.5 H (36.4-46.3) fL RDW Coeff of Joshua 19.6 H (11.5-14.5) % Lymph # (Auto) 0.81 L (1.20-3.40) K/uL PT 12.5 H (9.0-12.0) Seconds INR 1.2 H (0.9-1.1) VBG pCO2 34 L (38-50) mmHg Sodium 132 L (136-145) mmol/L Potassium 2.6 L (3.5-5.1) mmol/L Chloride 93 L (98-107) mmol/L Anion Gap 17 H (3-11) BUN/Creatinine Ratio 9.9 L (10-20) Glucose 139 H (70-99(Fasting)) mg/dl Lactate 2.2 H* (0.4-2.0) mmol/L Calcium 8.4 L (8.6-10.3) mg/dl Magnesium 1.3 L (1.7-2.4) mg/dl Total Bilirubin 1.3 H (0.2-1.0) mg/dl AST 60 H (13-39) U/L Alkaline Phosphatase 209 H (34-104) U/L Crossmatch See Detail Diagnostic Findings Chest X-Ray 02/01/24 08:10 XR chest 1V portable HISTORY: Dyspnea COMPARISON: Chest 11/14/2023. FINDINGS: The lungs are clear. Cardiac silhouette is normal in size. No pleural effusions. No pneumothorax. IMPRESSION: No acute process. ACT 112: Negative or not required by law. Electronically signed by: Low Cuello M.D. 02/01/2024 9:20 AM ECG Additional Comments: Normal sinus rhythm with T wave inversion noted throughout Code Status & VTE Plan Code Status Full code VTE Prophylaxis Plan VTE Prophylaxis will be ordered: Yes Supervising Physician Co-Signing Physician Notes I personally saw and examined the patient. I verified all mccauley points and agree with Carlos Zuleta PA-C with the following exceptions and/or additions: 58 year old male presents to the ER due to shortness of breath and wheezing that started today. Ran out of medications 2 months ago. Last alcohol drink 2-4 days ago. O/E Chronically ill appearing and dishevelled, HS RRR, no murmurs, Chest CTAB, Abdo SNT, no tremors, no pedal edema A/P Shortness of breath - suspect hypothyroidism and anemia playing a part but given rapid improvement suspect mostly asthma exacerbation Asthma exacerbation - Solu-medrol (reduce to 40mg IV daily given history of candidiasis and suspected GI bleed), duonebs, formoterol/budesonide Alcohol abuse - no current signs of withdrawal throughout the day Hypothyroidism - TSH increased due to not taking his usual levothyroxine therefore will just start at his prior dose Anemia - with current melena and prior esophageal candidiasis with normal current oral mucosa exam, suspected gastrointestinal blood loss but appears near baseline. Transfuse < 7. NPO after midnight. Elevated anion gap - suspect combination of mild lactate and ketonuria, should resolve with improved nutrition PG Care Time/CCT Total # of Minutes Spent Total Time Spent with Patient: Total time spent is greater than 50% in coordination of care (as documented) at patient's floor/unit and/or counseling patient: Coding [place] [address] INT INP/OBS CARE MIN Patient Type Established Medical Decision Making High Complexity Diagnoses Asthma exacerbation J45.901 Anemia D64.9 Anemia type: unspecified type Hypokalemia E87.6 Alcohol abuse F10.10 High anion gap metabolic acidosis E87.29 Hypothyroidism E03.9 Hypertension I10 Obstructive sleep apnea G47.33 Tobacco abuse Z72.0 (2) Anemia Anemia type: unspecified type Qualified Code(s): D64.9 - Anemia, unspecified
[2024-02-01] MEDS: POTASSIUM CHLORIDE / WTR 10 MEQ/100 ML PLCT IV ONE (10:07)
[2024-02-01] MEDS: MAGNESIUM SULFATE / D5W 1 GM/100 ML BAG IV SCH ×2 (10:10→11:52)
[2024-02-01] MEDS ORDERED: LORazepam 1 MG in SYRINGE 0.5 ML IV PRN (10:32)
[2024-02-01] MEDS: POTASSIUM CHLORIDE CRTAB 20 MEQ TABCR PO STA (10:51)
[2024-02-01] MEDS: NICOTINE 14 MG/24 HR PATCH TD ONE (11:05)
[2024-02-01] MEDS: SODIUM CHLORIDE 0.9% 250 ML IV PRN (11:13)
[2024-02-01 11:14] LABS: Folate (Folic Acid),Ser orPlas 2.82 ng/ml (>5.38)
[2024-02-01 11:17] LABS: Iron 167 mcg/dl (35-175); Unsaturated Iron Binding Cap < 55 mcg/dl (155-355)
[2024-02-01] MEDS: BUDESONIDE 0.5 MG/2 ML VIAL (PULMICORT) NEB SCH (11:17)
[2024-02-01] MEDS: ALBUT/IPRATROP 3MG/0.5MG NEB 3 ML VIAL NEB SCH (11:17)
[2024-02-01] MEDS: FORMOTEROL 20 MCG/2 ML VIAL NEB SCH (11:17)
[2024-02-01] MEDS: THIAMINE HCL 200 MG in SODIUM CHLORIDE 0.9% 50 ML IV STA (11:43)
[2024-02-01] MEDS: CYANOCOBALAMIN (B-12) 100 MCG TABLET PO STA (11:51)
[2024-02-01] MEDS: FOLIC ACID 1 MG TAB PO STA (11:51)
[2024-02-01 12:11] LABS: Thyroid Stimulating Hormone 26.983 uIu/ml (0.300-4.500)
[2024-02-01] MEDS: POTASSIUM CHLORIDE 20 MEQ in D5W AND LACTATED RINGERS 1,000 ML IV SCH (12:15)
[2024-02-01 12:46] LABS: T4 Free Thyroxine 0.48 ng/dl (0.61-1.60)
--- NOTE | 2024-02-01 13:01 | Electrocardiogram Report ---
Test Reason : Blood Pressure : */* mmHG Vent. Rate : 99 BPM Atrial Rate : 99 BPM P-R Int : 128 ms QRS Dur : 76 ms QT Int : 390 ms P-R-T Axes : 40 57 72 degrees QTcB Int : 500 ms Poor data quality, interpretation may be adversely affected Normal sinus rhythm Prolonged QT Abnormal ECG When compared with ECG of 20-Dec-2023 10:12, T wave inversion no longer evident in Anterior leads QT has lengthened Confirmed by Rocco Trammell ([id number]) on 02/01/2024 1:00:53 PM Referred By: REFERRED SELF Confirmed By: Rocco Trammell
[2024-02-01] MEDS: LEVOTHYROXINE SODIUM 125 MCG TABLET PO STA (13:09)
[2024-02-01 13:30] LABS: Appearance Urine Clear (Clear); Bacteria Urine Automated None Seen (None Seen); Bilirubin Urine Negative (Negative); Blood Urine Negative (Negative); Color Urine Dark Yellow; Glucose Urine UA Negative (Negative); Ketones Urine 1+ (Negative); Leukocyte Esterase Urine Trace (Negative); Nitrite Urine Negative (Negative); Protein Urine 1+ (Negative); RBC Urine Automated 0-2 /hpf (0-2); Specific Gravity Urine 1.015 (1.000-1.030); Urobilinogen Urine Positive (Negative); pH Urine 6.5 (4.5-7.5)
[2024-02-01] MEDS ORDERED: methylPREDNISolone 40 MG in SYRINGE 0 ML IV SCH (16:00)
[2024-02-01 16:22] LABS: Hemoglobin 6.4 g/dl (14.0-18.0); Mean Corpuscular Hemoglobin 32.2 pg (25.0-34.0); Mean Corpuscular Volume 100.5 fL (80.0-100.0); Mean Platelet Volume 10.1 fL (9.4-12.4); Nucleated RBC # (auto) 0.06 K/uL (0.00-0.12); Nucleated RBC % (auto) 0.8 %; Platelet Count 188 K/uL (130-400); RDW Coefficient of Variation 19.8 % (11.5-14.5); Red Blood Count 1.99 M/uL (4.70-6.10); White Blood Count 7.84 K/ul (4.8-10.8)
[2024-02-01] MEDS ORDERED: SODIUM CHLORIDE 0.9% 250 ML IV PRN (16:26)
[2024-02-01 17:02] LABS: BUN Creatinine Ratio 9.6 (10-20); Calcium 8.1 mg/dl (8.6-10.3); Creatinine Clr Calc Pharmacy 79.1 ml/min; Est GFR (African American) 102.4 ml/min; Est GFR (Non-African American) 88.4 ml/min; Magnesium 2.4 mg/dl (1.7-2.4); Potassium 3.1 mmol/L (3.5-5.1)
[2024-02-01] MEDS: NSS + 20MEQ KCL 20 MEQ/1,000 ML BAG IV SCH (18:39)
[2024-02-01] MEDS: ATORVASTATIN 40 MG TAB PO SCH (20:00)
[2024-02-01] MEDS: PANTOprazole 40 MG in SYRINGE 0 ML IV SCH (21:11)
[2024-02-01 23:48] LABS: Hematocrit (blood only) 21.5 % (42.0-52.0); Hemoglobin 7.1 g/dl (14.0-18.0); Mean Corpuscular Hemoglobin 31.6 pg (25.0-34.0); Mean Corpuscular Volume 95.6 fL (80.0-100.0); Mean Platelet Volume 9.8 fL (9.4-12.4); Nucleated RBC # (auto) 0.08 K/uL (0.00-0.12); Nucleated RBC % (auto) 0.8 %; Platelet Count 165 K/uL (130-400); RDW Coefficient of Variation 18.5 % (11.5-14.5); RDW Standard Deviation 63.9 fL (36.4-46.3); Red Blood Count 2.25 M/uL (4.70-6.10); White Blood Count 9.43 K/ul (4.8-10.8)
[2024-02-02 00:11] LABS: BUN Creatinine Ratio 9.2 (10-20); Calcium 7.8 mg/dl (8.6-10.3); Creatinine Clr Calc Pharmacy 85.5 ml/min; Est GFR (African American) 109.5 ml/min; Est GFR (Non-African American) 94.5 ml/min; Potassium 3.5 mmol/L (3.5-5.1)
[2024-02-02] MEDS ORDERED: SODIUM CHLORIDE 0.9% 250 ML IV PRN (00:38)
[2024-02-02 06:14] LABS: INR 1.2 (0.9-1.1); Prothrombin Time 12.4 Seconds (9.0-12.0)
[2024-02-02] MEDS: LEVOTHYROXINE SODIUM 125 MCG TABLET PO SCH (06:25)
[2024-02-02 06:37] LABS: Bilirubin,Total 1.4 mg/dl (0.2-1.0); Calcium 7.8 mg/dl (8.6-10.3); Magnesium 2.1 mg/dl (1.7-2.4); Potassium 3.5 mmol/L (3.5-5.1)
[2024-02-02 06:43] LABS: Albumin Globulin Ratio 1.3 (0.9-2); BUN Creatinine Ratio 10.7 (10-20); Est GFR (African American) 116.4 ml/min; Est GFR (Non-African American) 100.4 ml/min; Globulin 2.4 gm/dl (2.5-4.0); Total Protein 5.4 gm/dl (6.0-8.3)
[2024-02-02 07:14] LABS: Hematocrit (blood only) 24.2 % (42.0-52.0); Hemoglobin 8.1 g/dl (14.0-18.0); Mean Corpuscular Hgb Conc 33.5 g/dL (32.0-36.0); Mean Corpuscular Volume 89.6 fL (80.0-100.0); Mean Platelet Volume 10.3 fL (9.4-12.4); Nucleated RBC # (auto) 0.08 K/uL (0.00-0.12); Nucleated RBC % (auto) 0.7 %; Platelet Count 168 K/uL (130-400); RDW Coefficient of Variation 20.1 % (11.5-14.5); RDW Standard Deviation 64.7 fL (36.4-46.3); White Blood Count 11.46 K/ul (4.8-10.8)
[2024-02-02] MEDS ORDERED: ALBUT/IPRATROP 3MG/0.5MG NEB 3 ML VIAL NEB PRN (07:38)
[2024-02-02 08:04] LABS: Estimated Average Glucose 114 mg/dl; Hemoglobin A1C 5.6 % (4.5-5.6)
[2024-02-02] MEDS: CYANOCOBALAMIN (B-12) 100 MCG TABLET PO SCH (08:34)
[2024-02-02] MEDS: NICOTINE 14 MG/24 HR PATCH TD SCH (08:34)
[2024-02-02] MEDS: FOLIC ACID 1 MG TAB PO SCH (08:34)
[2024-02-02] MEDS: THIAMINE HCL 200 MG in SODIUM CHLORIDE 0.9% 50 ML IV SCH (08:35)
[2024-02-02] MEDS ORDERED: methylPREDNISolone 125 MG/2 ML VIAL IV SCH (09:00)
[2024-02-02] MEDS ORDERED: methylPREDNISolone 40 MG in SYRINGE 0 ML IV SCH (09:00)
[2024-02-02] MEDS: POTASSIUM CHLORIDE CRTAB 20 MEQ TABCR PO ONE (09:27)
[2024-02-02] MEDS: D5NSS + 20MEQ KCL 20 MEQ/1,000 ML BAG IV SCH (09:27)
[2024-02-02] MEDS: methylPREDNISolone 40 MG in SYRINGE 0 ML IV SCH (10:08)
--- NOTE | 2024-02-02 10:14 | Gastrointestinal Consultation ---
Date of Consultation February 02, 2024 Assessment & Plan (1) Anemia: 58 year old male with history of alcohol use disorder, alcohol withdrawal seizures, ETOH induced pancreatitis, central pontine myelinolysis, asthma, hypothyroidism, HLD, GERD, Hunter's esophagus, allergic rhinitis, anxiety, HTN, SUZI, COPD admitted with COPD exacerbation. GI asked to evaluate for hemepositive stools without black or bloody stools or emesis. No indication for EGD/Colonoscopy at this time. Consider referral for [place] either [facility] [place] [facility] [place] If negative, hematology evaluation for anemia, suspect this is multifactorial. Will need recall EGD for healing per endoscopist. ETOH cessation recommended. IV PPI BID while admitted then oral twice daily. Trend H&H. Monitor and docuemnt GI output. Transfuse PRN. Please contact GI if he develops any s/s of acute GI bleeding. I spent a total of 60 minutes on the date of service in review of patient's record, and previously obtained information in person and appropriate medical visit, discussion and education of plan, with patient and/or caregiver, placing orders for tests/referral/procedures as medically necessary and documentation of pertinent clinical information in patient's medical records for their visit today. Thank you for allowing us to participate in the care of this patient. Please call with any acute changes, questions or concerns. Please see addendum below with additional recommendation from my supervising physician. Supervising Physician Co-Signing Physician Notes I personally saw and examined the patient. I have reviewed the chart and agree with the documentation provided by the CONCRETE WALL GRINDER OPERATOR including discussion about the assessment, treatment and plan. Briefly, 58 year old male with history of alcohol use disorder, alcohol withdrawal seizures, ETOH induced pancreatitis, ce ntral pontine myelinolysis, asthma, hypothyroidism, HLD, GERD, Hunter's esophagus, allergic rhinitis, anxiety, HTN, SUZI, COPD and other below who presented to the ED yesterday with chest pressure and wheezing - GI asked to evaluate for anemia and heme positive stools. He recently underwent EGD/Colonoscopy for evaluation of anemia. s/p EGD and colonoscopy as outlined below. NO active bleeding but persistent anemia. Outpt VCE for pt. We went over rbac and pt agrees with plan. History of Present Illness Reason for Consultation: anemia, heme positive stool Requesting Physician: Collin Attending Physician: Italo Polanco MD History of Present Illness 58 year old male with history of alcohol use disorder, alcohol withdrawal seizures, ETOH induced pancreatitis, central pontine myelinolysis, asthma, hypothyroidism, HLD, GERD, Hunter's esophagus, allergic rhinitis, anxiety, HTN, SUZI, COPD and other below who presented to the ED yesterday with chest pressure and wheezing - GI asked to evaluate for anemia and heme positive stools. He recently underwent EGD/Colonoscopy for evaluation of anemia. Exam showed eso stenosis, sneha, gastritis, diverticulosis, hemorrhoids, tubular adenomas. Suggests from a GI standpoint feeling well. Denies abd pain. No nausea, vomiting. Tolerating oral intake well. Just finished breakfast. Denies black or bloody stools. No report of black or bloody emesis. No fever,chills, CP, SOB. HGB baseline 7-8 S/P 2 units RBC HGB 6.4 --> 8.1 BUN 8 EGD 2023: Esophageal plaques were found, consistent with candidiasis. Brushings performed. - Benign-appearing esophageal stenosis. - Gastritis, characterized by erythema. Biopsied. - Normal examined duodenum. Colonoscopy 2023: - The perianal and digital rectal examinations were normal. - Five pedunculated and sessile polyps were found in the sigmoid colon and ascending colon. The polyps were 3 to 7 mm in size. These polyps were removed with a cold snare. Resection and retrieval were complete. - Multiple small-mouthed diverticula were found in the sigmoid colon. - Internal hemorrhoids were found during retroflexion. The hemorrhoids were small. Allergies Allergy/AdvReac Type Severity Reaction Status Date / Time Sulfa (Sulfonamide Allergy Intermediate HIVES Verified 02/01/24 11:11 Antibiotics) MARGARET Inhibitors AdvReac Intermediate COUGH Verified 02/01/24 11:11 amlodipine AdvReac Intermediate FATIGUE Verified 02/01/24 11:11 clonidine AdvReac Intermediate HEADACHES Verified 02/01/24 11:11 varenicline [From Chantix] AdvReac Intermediate JITTERY/SHA Verified 02/01/24 11:11 [facility] Home Medications Medication Instructions Recorded Confirmed Type ezetimibe 10 mg tablet 10 mg PO HS 07/29/21 02/01/24 History atorvastatin 40 mg tablet 40 mg PO QPM #90 tabs 09/01/22 02/01/24 Rx escitalopram oxalate 20 mg tablet 20 mg PO QPM #90 tabs 06/09/23 02/01/24 Rx levothyroxine 125 mcg tablet 125 mcg PO QAM #30 tabs 08/21/23 02/01/24 Rx omeprazole 40 mg capsule,delayed 40 mg PO BID #60 caps 08/21/23 02/01/24 Rx release albuterol sulfate 90 mcg/actuation 1 puff inhalation Q4 PRN sob 10/17/2301/31 History aerosol inhaler loperamide 2 mg capsule 2 mg PO Q2H PRN loose stool #30 10/20/23 02/01/24 Rx caps folic acid 1 mg tablet 1 mg PO QAM 11/14/23 02/01/24 History furosemide 40 mg tablet 40 mg PO QAM 11/14/23 02/01/24 History valsartan 320 mg tablet 320 mg PO QAM 11/14/23 02/01/24 History magnesium oxide 400 mg (241.3 mg 400 mg PO DAILY #7 tabs 12/20/23 02/01/24 Rx magnesium) tablet (MagOx) potassium chloride 20 mEq 20 meq PO DAILY #7 tabs 12/20/23 02/01/24 Rx tablet,extended release Patient History Medical History Alcohol withdrawal Hypothyroidism GERD (gastroesophageal reflux disease) UTI (urinary tract infection) Thrombocytopenia Acute dehydration Anxiety Hypothyroidism GERD (gastroesophageal reflux disease) Surgical History S/P wrist surgery R WRIST REPAIR OF TORN TENDON Hx of vasectomy History of colonoscopy History of esophagogastroduodenoscopy (EGD) History of appendectomy History of tooth extraction WISDOM TEETH History of tonsillectomy S/P LASIK surgery of both eyes History of lumbar spinal fusion Family History Father Alcohol abuse COPD (chronic obstructive pulmonary disease) Hypertension Reported family history of early sudden deaths Mother Hypertension Hyperlipidemia Brother Hypertension Sister Graves' disease Social History Smoking Status: Heavy tobacco smoker Tobacco Type: Cigarettes Cigarettes Per Day: 1 PPD; Second Hand Exposure: No; Do You Dip or Chew Tobacco: No; Tobacco Cessation Education Requested by Patient: No Hx Alcohol Use: Yes Alcohol type: hard liquor Hx Substance Use: No Preferred Language: Urdu Communication Ability: Effective Visual Impairment: Limited Hearing Ability: Normal Utility Hand Required: No Beliefs That Will Affect Care: None marital status: Current Living Situation: Alone Current Living Situation Comment: Live at home alone current occupational status: employed current occupation: [employer] Other Information That Helps Us Care for You: No Feels Safe at Home: Yes Safety Concerns: Feels Safe At This Time Childhood Exposure to Second-Hand Smoke: No caffeine: Yes Dental Care, Regularly: Yes Physical Activity Frequency: Does not Exercise Seatbelt Use: always Sunscreen Use: No Assistive Devices: None Review of Systems Review of Systems: All other findings negative except as noted in HPI. Physical Exam Constitutional: WD/WN, vitals as above Respiratory: normal respiratory effort, lungs clear to auscultation Cardiovascular: Rate/Rhythm: regular rate and regular rhythm Gastrointestinal (Abdomen): normal bowel sounds, soft, nontender, no hepatosplenomegaly Skin: no rashes, warm and dry Results & Data Vital Signs (Past 12 Hours) Vital Signs Temp Pulse Pulse Resp BP BP Pulse Ox 02/02/24 07:44 36.6 C 80 18 110/73 99 02/02/24 07:17 76 02/02/24 04:01 36.8 C 74 17 125/80 99 02/02/24 03:15 36.8 C 75 17 121/79 100 02/02/24 02:15 36.6 C 80 18 136/80 99 02/02/24 01:45 36.7 C 75 18 125/84 99 02/02/24 01:30 36.6 C 74 16 115/77 98 02/02/24 01:09 36.6 C 72 16 110/73 95 02/01/24 22:37 36.6 C 72 17 104/72 100 O2 Del Method 02/02/24 07:44 Room Air 02/02/24 07:17 02/02/24 04:01 02/02/24 03:15 02/02/24 02:15 02/02/24 01:45 02/02/24 01:30 02/02/24 01:09 02/01/24 22:37 Laboratory Results 02/02/24 02/01/24 02/01/24 Range/Units 05:24 23:30 16:32 WBC 11.46 H 9.43 (4.8-10.8) K/ul RBC 2.70 L 2.25 L (4.70-6.10) M/uL Hgb 8.1 L 7.1 L (14.0-18.0) g/dl Hct 24.2 L 21.5 L (42.0-52.0) % MCV 89.6 D 95.6 (80.0-100.0) fL MCH 30.0 31.6 (25.0-34.0) pg MCHC 33.5 33.0 (32.0-36.0) g/dL RDW Std Deviation 64.7 H 63.9 H (36.4-46.3) fL RDW Coeff of Joshua 20.1 H 18.5 H (11.5-14.5) % Plt Count 168 165 (130-400) K/uL MPV 10.3 9.8 (9.4-12.4) fL Absolute Nucleated RBC 0.08 0.08 (0.00-0.12) K/uL Nucleated RBC % (auto) 0.7 0.8 % PT 12.4 H (9.0-12.0) Seconds INR 1.2 H (0.9-1.1) Sodium 132 L 131 L 129 L (136-145) mmol/L Potassium 3.5 3.5 3.1 L (3.5-5.1) mmol/L Chloride 101 99 96 L (98-107) mmol/L Carbon Dioxide 24 21 19 L (21-32) mmol/L Anion Gap 7 11 14 H (3-11) BUN 8 8 9 (6-23) mg/dl Creatinine 0.75 0.87 0.94 (0.6-1.4) mg/dl Est Cr Clr Drug Dosing 99.0 85.5 79.1 ml/min Est GFR ( Amer) 116.4 109.5 102.4 ml/min Est GFR (Non-Af Amer) 100.4 94.5 88.4 ml/min BUN/Creatinine Ratio 10.7 9.2 L 9.6 L (10-20) Glucose 147 H 138 H 287 H (70-99(Fasting)) mg/dl Estimat Average Glucose 114 mg/dl Hemoglobin A1c 5.6 (4.5-5.6) % Lactate (0.4-2.0) mmol/L Calcium 7.8 L 7.8 L 8.1 L (8.6-10.3) mg/dl Magnesium 2.1 2.4 (1.7-2.4) mg/dl Iron (35-175) mcg/dl TIBC Unsaturated IBC (155-355) mcg/dl Transferrin % Sat Ferritin (8-388) ng/ml Total Bilirubin 1.4 H (0.2-1.0) mg/dl AST 48 H (13-39) U/L ALT 13 (7-52) U/L Alkaline Phosphatase 177 H (34-104) U/L Total Protein 5.4 L (6.0-8.3) gm/dl Albumin 3.0 L (3.4-5.0) gm/dl Globulin 2.4 L (2.5-4.0) gm/dl Albumin/Globulin Ratio 1.3 (0.9-2) Triglycerides 156 H (0-150) mg/dl Cholesterol 185 (0-200) mg/dl LDL Cholesterol, Calc 123 mg/dl VLDL Cholesterol, Calc 31 H (0-30) mg/dl HDL Cholesterol 31 mg/dl Cholesterol/HDL Ratio 6.0 H (0-5) Vitamin B12 (180-914) pg/ml Folate (>5.38) ng/ml TSH (0.300-4.500) uIu/ml Free T4 (0.61-1.60) ng/dl Urine Color Urine Appearance (Clear) Urine pH (4.5-7.5) Ur Specific [place] (1.000-1.030) Urine Protein (Negative) Urine Glucose (UA) (Negative) Urine Ketones (Negative) Urine Blood (Negative) Urine Nitrite (Negative) Urine Bilirubin (Negative) Urine Urobilinogen (Negative) Ur Leukocyte Esterase (Negative) Urine WBC (Auto) (0-5) /hpf Urine RBC (Auto) (0-2) /hpf U Hyaline Cast (Auto) (0-2) /lpf U Epithel Cells (Auto) (0-2) /hpf Urine Bacteria (Auto) (None Seen) Salicylates (3.0-30) mg/dl Ethyl Alcohol mg/dL (<10.0) mg/dl Blood Type Antibody Screen Crossmatch 02/01/24 02/01/24 02/01/24 Range/Units 14:58 12:58 12:04 WBC 7.84 (4.8-10.8) K/ul RBC 1.99 L (4.70-6.10) M/uL Hgb 6.4 L* (14.0-18.0) g/dl Hct 20.0 L* (42.0-52.0) % MCV 100.5 H (80.0-100.0) fL MCH 32.2 (25.0-34.0) pg MCHC 32.0 (32.0-36.0) g/dL RDW Std Deviation 73.0 H (36.4-46.3) fL RDW Coeff of Joshua 19.8 H (11.5-14.5) % Plt Count 188 (130-400) K/uL MPV 10.1 (9.4-12.4) fL Absolute Nucleated RBC 0.06 (0.00-0.12) K/uL Nucleated RBC % (auto) 0.8 % PT (9.0-12.0) Seconds INR (0.9-1.1) Sodium (136-145) mmol/L Potassium (3.5-5.1) mmol/L Chloride (98-107) mmol/L Carbon Dioxide (21-32) mmol/L Anion Gap (3-11) BUN (6-23) mg/dl Creatinine (0.6-1.4) mg/dl Est Cr Clr Drug Dosing ml/min Est GFR ( Amer) ml/min Est GFR (Non-Af Amer) ml/min BUN/Creatinine Ratio (10-20) Glucose (70-99(Fasting)) mg/dl Estimat Average Glucose mg/dl Hemoglobin A1c (4.5-5.6) % Lactate 2.2 H* (0.4-2.0) mmol/L Calcium (8.6-10.3) mg/dl Magnesium (1.7-2.4) mg/dl Iron (35-175) mcg/dl TIBC Unsaturated IBC (155-355) mcg/dl Transferrin % Sat Ferritin (8-388) ng/ml Total Bilirubin (0.2-1.0) mg/dl AST (13-39) U/L ALT (7-52) U/L Alkaline Phosphatase (34-104) U/L Total Protein (6.0-8.3) gm/dl Albumin (3.4-5.0) gm/dl Globulin (2.5-4.0) gm/dl Albumin/Globulin Ratio (0.9-2) Triglycerides (0-150) mg/dl Cholesterol (0-200) mg/dl LDL Cholesterol, Calc mg/dl VLDL Cholesterol, Calc (0-30) mg/dl HDL Cholesterol mg/dl Cholesterol/HDL Ratio (0-5) Vitamin B12 (180-914) pg/ml Folate (>5.38) ng/ml TSH (0.300-4.500) uIu/ml Free T4 (0.61-1.60) ng/dl Urine Color Dark Yellow Urine Appearance Clear (Clear) Urine pH 6.5 (4.5-7.5) Ur Specific [place] 1.015 (1.000-1.030) Urine Protein 1+ H (Negative) Urine Glucose (UA) Negative (Negative) Urine Ketones 1+ H (Negative) Urine Blood Negative (Negative) Urine Nitrite Negative (Negative) Urine Bilirubin Negative (Negative) Urine Urobilinogen Positive H (Negative) Ur Leukocyte Esterase Trace H (Negative) Urine WBC (Auto) 6-10 H (0-5) /hpf Urine RBC (Auto) 0-2 (0-2) /hpf U Hyaline Cast (Auto) 6-10 H (0-2) /lpf U Epithel Cells (Auto) 3-5 H (0-2) /hpf Urine Bacteria (Auto) None Seen (None Seen) Salicylates (3.0-30) mg/dl Ethyl Alcohol mg/dL (<10.0) mg/dl Blood Type Antibody Screen Crossmatch 02/01/24 02/01/24 02/01/24 Range/Units 11:15 10:39 10:18 WBC (4.8-10.8) K/ul RBC (4.70-6.10) M/uL Hgb (14.0-18.0) g/dl Hct (42.0-52.0) % MCV (80.0-100.0) fL MCH (25.0-34.0) pg MCHC (32.0-36.0) g/dL RDW Std Deviation (36.4-46.3) fL RDW Coeff of Joshua (11.5-14.5) % Plt Count (130-400) K/uL MPV (9.4-12.4) fL Absolute Nucleated RBC (0.00-0.12) K/uL Nucleated RBC % (auto) % PT (9.0-12.0) Seconds INR (0.9-1.1) Sodium (136-145) mmol/L Potassium (3.5-5.1) mmol/L Chloride (98-107) mmol/L Carbon Dioxide (21-32) mmol/L Anion Gap (3-11) BUN (6-23) mg/dl Creatinine (0.6-1.4) mg/dl Est Cr Clr Drug Dosing ml/min Est GFR ( Amer) ml/min Est GFR (Non-Af Amer) ml/min BUN/Creatinine Ratio (10-20) Glucose (70-99(Fasting)) mg/dl Estimat Average Glucose mg/dl Hemoglobin A1c (4.5-5.6) % Lactate 2.2 H* (0.4-2.0) mmol/L Calcium (8.6-10.3) mg/dl Magnesium (1.7-2.4) mg/dl Iron 167 (35-175) mcg/dl TIBC TNP Unsaturated IBC < 55 L (155-355) mcg/dl Transferrin % Sat TNP Ferritin 1855.0 H (8-388) ng/ml Total Bilirubin (0.2-1.0) mg/dl AST (13-39) U/L ALT (7-52) U/L Alkaline Phosphatase (34-104) U/L Total Protein (6.0-8.3) gm/dl Albumin (3.4-5.0) gm/dl Globulin (2.5-4.0) gm/dl Albumin/Globulin Ratio (0.9-2) Triglycerides (0-150) mg/dl Cholesterol (0-200) mg/dl LDL Cholesterol, Calc mg/dl VLDL Cholesterol, Calc (0-30) mg/dl HDL Cholesterol mg/dl Cholesterol/HDL Ratio (0-5) Vitamin B12 1040 H (180-914) pg/ml Folate 2.82 L (>5.38) ng/ml TSH 26.983 H (0.300-4.500) uIu/ml Free T4 0.48 L (0.61-1.60) ng/dl Urine Color Urine Appearance (Clear) Urine pH (4.5-7.5) Ur Specific [place] (1.000-1.030) Urine Protein (Negative) Urine Glucose (UA) (Negative) Urine Ketones (Negative) Urine Blood (Negative) Urine Nitrite (Negative) Urine Bilirubin (Negative) Urine Urobilinogen (Negative) Ur Leukocyte Esterase (Negative) Urine WBC (Auto) (0-5) /hpf Urine RBC (Auto) (0-2) /hpf U Hyaline Cast (Auto) (0-2) /lpf U Epithel Cells (Auto) (0-2) /hpf Urine Bacteria (Auto) (None Seen) Salicylates < 3.0 L (3.0-30) mg/dl Ethyl Alcohol mg/dL < 10.0 (<10.0) mg/dl Blood Type Antibody Screen Crossmatch 02/01/24 Range/Units 09:59 WBC (4.8-10.8) K/ul RBC (4.70-6.10) M/uL Hgb (14.0-18.0) g/dl Hct (42.0-52.0) % MCV (80.0-100.0) fL MCH (25.0-34.0) pg MCHC (32.0-36.0) g/dL RDW Std Deviation (36.4-46.3) fL RDW Coeff of Joshua (11.5-14.5) % Plt Count (130-400) K/uL MPV (9.4-12.4) fL Absolute Nucleated RBC (0.00-0.12) K/uL Nucleated RBC % (auto) % PT (9.0-12.0) Seconds INR (0.9-1.1) Sodium (136-145) mmol/L Potassium (3.5-5.1) mmol/L Chloride (98-107) mmol/L Carbon Dioxide (21-32) mmol/L Anion Gap (3-11) BUN (6-23) mg/dl Creatinine (0.6-1.4) mg/dl Est Cr Clr Drug Dosing ml/min Est GFR ( Amer) ml/min Est GFR (Non-Af Amer) ml/min BUN/Creatinine Ratio (10-20) Glucose (70-99(Fasting)) mg/dl Estimat Average Glucose mg/dl Hemoglobin A1c (4.5-5.6) % Lactate (0.4-2.0) mmol/L Calcium (8.6-10.3) mg/dl Magnesium (1.7-2.4) mg/dl Iron (35-175) mcg/dl TIBC Unsaturated IBC (155-355) mcg/dl Transferrin % Sat Ferritin (8-388) ng/ml Total Bilirubin (0.2-1.0) mg/dl AST (13-39) U/L ALT (7-52) U/L Alkaline Phosphatase (34-104) U/L Total Protein (6.0-8.3) gm/dl Albumin (3.4-5.0) gm/dl Globulin (2.5-4.0) gm/dl Albumin/Globulin Ratio (0.9-2) Triglycerides (0-150) mg/dl Cholesterol (0-200) mg/dl LDL Cholesterol, Calc mg/dl VLDL Cholesterol, Calc (0-30) mg/dl HDL Cholesterol mg/dl Cholesterol/HDL Ratio (0-5) Vitamin B12 (180-914) pg/ml Folate (>5.38) ng/ml TSH (0.300-4.500) uIu/ml Free T4 (0.61-1.60) ng/dl Urine Color Urine Appearance (Clear) Urine pH (4.5-7.5) Ur Specific [place] (1.000-1.030) Urine Protein (Negative) Urine Glucose (UA) (Negative) Urine Ketones (Negative) Urine Blood (Negative) Urine Nitrite (Negative) Urine Bilirubin (Negative) Urine Urobilinogen (Negative) Ur Leukocyte Esterase (Negative) Urine WBC (Auto) (0-5) /hpf Urine RBC (Auto) (0-2) /hpf U Hyaline Cast (Auto) (0-2) /lpf U Epithel Cells (Auto) (0-2) /hpf Urine Bacteria (Auto) (None Seen) Salicylates (3.0-30) mg/dl Ethyl Alcohol mg/dL (<10.0) mg/dl Blood Type O Positive Antibody Screen NEGATIVE Crossmatch See Detail PG Care Time/CCT Total # of Minutes Spent Total Time Spent with Patient: Total time spent is greater than 50% in coordination of care (as documented) at patient's floor/unit and/or counseling patient: Coding Level of Care Code 44742 IN/OBS CONSULT LVL 4,60M Diagnoses Anemia D64.9
--- NOTE | 2024-02-02 13:11 | Hospitalist Progress Note ---
Date of Service February 02, 2024 Assessment & Plan (1) Asthma exacerbation: Plan: Improved. Continue steroid therapy and nebulizer treatments. No evidence of underlying pneumonia (2) Anemia: Plan: Appears to be related to chronic GI blood losses and possibly bone marrow suppression from chronic alcohol intake. He received 1 unit packed red blood cells. Hemoglobin is now 8.1. GI consultation appreciated. Outpatient evaluation recommended. (3) Hypokalemia: Plan: Corrected. Potassium level 3.5 today, February 01. (4) Alcohol abuse: Plan: long history of alcohol abuse. Alcohol cessation recommended. Continue vitamin supplementation. No current evidence of DTs (5) Hypothyroidism: Plan: He states he has not missed his thyroid replacement but free T4 is low and TSH is elevated. Levothyroxine dosage has been increased. This will need to be followed as an outpatient. (6) Hypertension: Plan: Has been off valsartan for multiple months. Continue to monitor off antihypertensives for now and restart as needed (7) Tobacco abuse: Plan: Smoking cessation recommended. Will use nicotine patch if he is agreeable Plan Hopeful discharge to home tomorrow, February 02 Admission and Anticipated Discharge Date Admission Date: February 01, 2024 Subjective Alert and oriented. He is feeling better. He states he has been taking his thyroid supplement daily. Dosage has been uptitrated due to low free T4 and elevated TSH. Potassium corrected to 3.5. Magnesium corrected to 2.1. Hemoglobin improved after 1 unit packed red blood cells, currently 8.1. No overt melena or hematochezia. GI consultation has been obtained. They recommend outpatient evaluation. Hopefully the patient can go home tomorrow, February 02 Review of Systems 2 Review of Systems: Constitutionalno fever or chills ENTno blurred vision, no double vision, no epistaxis, no sore throat Respiratoryno cough, no wheezing, no shortness of breath Cardiacno palpitations, no chest pain, no syncope Brinda nausea, vomiting, diarrhea, melena, hematochezia GUno urinary retention, no urinary incontinence, no dysuria, no hematuria Musculoskeletalno joint pain, no muscle tenderness Skinno bruising, no rashes, no pruritus Neurono isolated weakness, no paresthesia, no weakness Psychno depression, no anxiety Physical Exam 2 Physical Exam: General-alert and oriented x3, no fever, no chills HEENT-head atraumatic and normocephalic, pupils equal and reactive to light, extraocular muscles intact Neck-no lymphadenopathy or thyromegaly, trachea midline Chest-clear to auscultation. No rales, wheezing or rhonchi Cardiac-regular rate and rhythm, normal S1 and S2 Abdomen-normal bowel sounds, no hepatosplenomegaly Extremities-no cyanosis, clubbing, or edema Neuro-cranial nerves II through XII intact, motor and sensory function within normal limits, strength symmetrical, no focal deficits Psych-normal affect, normal mood Results & Data Results & Data Vital Signs (Past 12 Hours) Vital Signs Temp Pulse Pulse Resp BP BP Pulse Ox 02/02/24 11:27 36.7 C 74 16 110/69 97 02/02/24 07:44 36.6 C 80 18 110/73 99 02/02/24 07:17 76 02/02/24 04:01 36.8 C 74 17 125/80 99 02/02/24 03:15 36.8 C 75 17 121/79 100 02/02/24 02:15 36.6 C 80 18 136/80 99 02/02/24 01:45 36.7 C 75 18 125/84 99 02/02/24 01:30 36.6 C 74 16 115/77 98 02/02/24 01:09 36.6 C 72 16 110/73 95 O2 Del Method 02/02/24 11:27 Room Air 02/02/24 07:44 Room Air 02/02/24 07:17 02/02/24 04:01 02/02/24 03:15 02/02/24 02:15 02/02/24 01:45 02/02/24 01:30 02/02/24 01:09 Laboratory Results 02/02/24 05:24 02/02/24 05:24 PG Care Time/CCT Total # of Minutes Spent Total Time Spent with Patient: Total time spent is greater than 50% in coordination of care (as documented) at patient's floor/unit and/or counseling patient: Coding Level of Care Code 64182 SUB INP/OBS CARE 3/50MIN Diagnoses Asthma exacerbation J45.901 Anemia D64.9 Anemia type: unspecified type Hypokalemia E87.6 Alcohol abuse F10.10 Hypothyroidism E03.9 Hypertension I10 Tobacco abuse Z72.0 (2) Anemia Anemia type: unspecified type Qualified Code(s): D64.9 - Anemia, unspecified
[2024-02-02] MEDS: COUGH DROP (SUGAR FREE) LOZ 24 LOZ/1 BOX BUCCAL STA (13:29)
[2024-02-02 18:07] LABS: Hematocrit (blood only) 25.9 % (42.0-52.0); Hemoglobin 8.6 g/dl (14.0-18.0)
[2024-02-03 05:57] LABS: Basophils # (auto) 0.01 K/uL (0.00-0.20); Basophils % (auto) 0.1 %; Hematocrit (blood only) 25.9 % (42.0-52.0); Hemoglobin 8.6 g/dl (14.0-18.0); Immature Granulocytes # (auto) 0.25 K/uL (0.01-0.20); Immature Granulocytes % (auto) 2.3 %; Lymphocytes # (auto) 0.97 K/uL (1.20-3.40); Lymphocytes % (auto) 9.1 %; Mean Corpuscular Hemoglobin 30.3 pg (25.0-34.0); Mean Corpuscular Hgb Conc 33.2 g/dL (32.0-36.0); Mean Corpuscular Volume 91.2 fL (80.0-100.0); Monocytes # (auto) 0.88 K/uL (0.11-0.59); Monocytes % (auto) 8.3 %; Neutrophils # (auto) 8.54 K/uL (1.40-6.50); Neutrophils % (auto) 80.2 %; Nucleated RBC # (auto) 0.06 K/uL (0.00-0.12); Nucleated RBC % (auto) 0.6 %; Platelet Count 167 K/uL (130-400); RDW Coefficient of Variation 22.1 % (11.5-14.5); RDW Standard Deviation 73.4 fL (36.4-46.3); Red Blood Count 2.84 M/uL (4.70-6.10); White Blood Count 10.65 K/ul (4.8-10.8)
[2024-02-03] MEDS: LEVOTHYROXINE SODIUM 200 MCG TABLET PO SCH (06:06)
[2024-02-03 06:12] LABS: Albumin Globulin Ratio 1.2 (0.9-2); Albumin Level 2.8 gm/dl (3.4-5.0); BUN Creatinine Ratio 10.5 (10-20); Calcium 7.9 mg/dl (8.6-10.3); Creatinine Clr Calc Pharmacy 97.7 ml/min; Est GFR (African American) 115.7 ml/min; Est GFR (Non-African American) 99.9 ml/min; Globulin 2.4 gm/dl (2.5-4.0); Potassium 3.8 mmol/L (3.5-5.1); Total Protein 5.2 gm/dl (6.0-8.3)
[2024-02-03 06:54] LABS: Anisocytosis Present; Polychromasia 3+; Toxic Vacuolation 1+
[2024-02-03 07:55] VITALS: RESP 16; O2SAT 99
--- NOTE | 2024-02-03 08:50 | CT Scan Report ---
CT SCAN OF THE BRAIN WITHOUT IV CONTRAST CLINICAL HISTORY: Fall. Head injury. COMPARISON STUDY: CT of the brain dated 11/14/2023. TECHNIQUE: Unenhanced axial CT scan of the brain is performed from the vertex to the skull base. A do se lowering technique was utilized adhering to the principles of ALARA. CT DOSE: 625.8 mGy.cm FINDINGS: Brain parenchyma: There is age-related involutional change noting mild subcortical and periventricula r microangiopathic disease. There is no hemorrhage, mass effect, or evidence of acute territorial isc hemia by CT criteria. A focus of pontine encephalomalacia is unchanged. Dunaway-white matter differentia tion is preserved. No extra-axial fluid collection is seen. Ventricles, sulci, cisterns: Prominent secondary to involutional change. Intracranial vasculature: There is atherosclerotic calcification of the cavernous carotid and vertebr al arteries. Calvarium: Unremarkable. Sinuses and mastoids: There is trace mucosal thickening within the maxillary antra. The remaining par anasal sinuses are clear. The mastoid air cells are well pneumatized. Orbits: The bony orbits are grossly intact. IMPRESSION: There is no hemorrhage, mass effect, or evidence of acute territorial ischemia by CT brittany araujo. ACT 112: Negative or not required by law. Electronically signed by: Nicholas Patino M.D. 02/03/2024 8:49 AM
[2024-02-03] MEDS: PANTOprazole 40 MG TAB PO SCH (09:25)
[2024-02-03 11:20] VITALS: BP 131/83; PULSE 77; TEMP 97.5
--- NOTE | 2024-02-03 11:21 | Hospitalist Progress Note ---
Date of Service February 03, 2024 Assessment & Plan (1) Asthma exacerbation: Plan: Now resolved. Treated while hospitalized with steroid therapy and nebulizer treatments. No evidence of underlying pneumonia (2) Anemia: Plan: Appears to be related to chronic GI blood losses and possibly bone marrow suppression from chronic alcohol intake. He received 1 unit packed red blood cells. Hemoglobin is now stable. GI consultation appreciated. Outpatient evaluation recommended. (3) Hypokalemia: Plan: Corrected. Potassium level 3.8 todayFebruary 02 (4) Alcohol abuse: Plan: long history of alcohol abuse. Alcohol cessation recommended. Continue vitamin supplementation. No current evidence of DTs (5) Hypothyroidism: Plan: He states he has not missed his thyroid replacement but free T4 is low and TSH is elevated. Levothyroxine dosage has been increased. This will need to be followed as an outpatient. (6) Hypertension: Plan: Has been off valsartan for multiple months. Continue to monitor off antihypertensives for now and restart as needed (7) Tobacco abuse: Plan: Smoking cessation recommended. Will use nicotine patch if he is agreeable (8) Closed head injury without loss of consciousness: Plan: The patient slipped and fell in his room. Head CT scan is negative for any significant findings. No loss of consciousness or evidence of concussion. Plan Home todayFebruary 02 Admission and Anticipated Discharge Date Admission Date: February 01, 2024 Subjective The patient slipped and fell on his floor striking his head. Fortunately there was no severe injury and head CT scan reveals no significant pathology. Hemoglobin is stable at 8.6. Potassium corrected to 3.8. Magnesium corrected to 2.1. Levothyroxine dose has been increased. He is medically stable for discharge to home todayFebruary 02 Review of Systems 2 Review of Systems: Constitutionalno fever or chills ENTno blurred vision, no double vision, no epistaxis, no sore throat Respiratoryno cough, no wheezing, no shortness of breath Cardiacno palpitations, no chest pain, no syncope Brinda nausea, vomiting, diarrhea, melena, hematochezia GUno urinary retention, no urinary incontinence, no dysuria, no hematuria Musculoskeletalno joint pain, no muscle tenderness Skinno bruising, no rashes, no pruritus Neurono isolated weakness, no paresthesia, no weakness Psychno depression, no anxiety Physical Exam 2 Physical Exam: General-alert and oriented x3, no fever, no chills HEENT-head atraumatic and normocephalic, pupils equal and reactive to light, extraocular muscles intact Neck-no lymphadenopathy or thyromegaly, trachea midline Chest-clear to auscultation. No rales, wheezing or rhonchi Cardiac-regular rate and rhythm, normal S1 and S2 Abdomen-normal bowel sounds, no hepatosplenomegaly Extremities-no cyanosis, clubbing, or edema Neuro-cranial nerves II through XII intact, motor and sensory function within normal limits, strength symmetrical, no focal deficits Psych-normal affect, normal mood Results & Data Results & Data Vital Signs (Past 12 Hours) Vital Signs Temp Pulse Pulse Resp BP Pulse Ox O2 Del Method 02/03/24 07:54 36.5 C 72 16 123/75 99 Room Air 02/03/24 07:39 60 02/03/24 03:50 36.7 C 79 18 128/77 96 Room Air 02/02/24 23:34 36.8 C 78 18 128/80 97 Room Air Laboratory Results 02/03/24 05:22 02/03/24 05:22 PG Care Time/CCT Total # of Minutes Spent Total Time Spent with Patient: Total time spent is greater than 50% in coordination of care (as documented) at patient's floor/unit and/or counseling patient: Coding Level of Care Code 88225 SUB INP/OBS CARE 3/50MIN Diagnoses Asthma exacerbation J45.901 Anemia D64.9 Anemia type: unspecified type Hypokalemia E87.6 Alcohol abuse F10.10 Hypothyroidism E03.9 Hypertension I10 Tobacco abuse Z72.0 Closed head injury without loss of consciousness S09.90XA (2) Anemia Anemia type: unspecified type Qualified Code(s): D64.9 - Anemia, unspecified
--- NOTE | 2024-02-03 11:26 | Discharge Summary ---
Discharge Summary Date of Service February 03, 2024 Principal Dx & Hospital Course #1 = Principal Diagnosis (1) Asthma exacerbation: Now resolved. Treated while hospitalized with steroid therapy and nebulizer treatments. No evidence of underlying pneumonia (2) Anemia: Appears to be related to chronic GI blood losses and possibly bone marrow suppression from chronic alcohol intake. He received 1 unit packed red blood cells. Hemoglobin is now stable. GI consultation appreciated. Outpatient evaluation recommended. (3) Hypokalemia: Corrected. Potassium level 3.8 todayFebruary 02 (4) Alcohol abuse: long history of alcohol abuse. Alcohol cessation recommended. Continue vitamin supplementation. No current evidence of DTs (5) Hypothyroidism: He states he has not missed his thyroid replacement but free T4 is low and TSH is elevated. Levothyroxine dosage has been increased. This will need to be followed as an outpatient. (6) Hypertension: Has been off valsartan for multiple months. Continue to monitor off antihypertensives for now and restart as needed (7) Tobacco abuse: Smoking cessation recommended. Will use nicotine patch if he is agreeable (8) Closed head injury without loss of consciousness: The patient slipped and fell in his room. Head CT scan is negative for any significant findings. No loss of consciousness or evidence of concussion. Plan Home todayFebruary 02 Admission HPI Per Admitting Provider Alexei is a 58-year-old male with PMH of alcohol use disorder, alcohol withdrawal seizures, central pontine myelinolysis, asthma, hypothyroidism, HLD, GERD, Hunter's esophagus, SUZI, and anxiety who presented to the [facility] ED via EMS on 02/01/2024 with complaints of shortness of breath and chest tightness. Patient arrived to the ED stable on 4 L nasal cannula with mild hypotension of 95/64 but otherwise stable. Labs were significant for hemoglobin of 7.1 (down from 7.5 as of 11/24/2023), hematocrit of 22, MCV of 99, MCHC of 32, INR 1.2, VBG pH of 7.39 with pCO2 of 34 and pO2 less than 20, potassium of 2.6, mag of 1.3, anion gap of 17 with bicarb within normal limits, total bili of 1.3, AST of 60, ALT of 15, alk phos 2 9, with COVID-19, influenza, and RSV negative. Chest x-ray was read as negative for acute findings. ED explained that patient reported recent melanotic stool over the past 3 days, he was found to be heme positive on testing in the ED. Patient reportedly received 125 mg IV Solu-Medrol and DuoNeb treatment by EMS and route. Prior to admission the patient was given albuterol nebulizing treatment, 20 mg IV famotidine, 40 mg IV pantoprazole, 1 g IV mag sulfate, 10 mEq IV KCl, 20M EQ p.o. KCl, and 1 L NSS. Patient was sitting in bed no acute distress at the time of exam, currently stable on 2 L nasal cannula and in no respiratory distress. States that he has been developing progressive shortness of breath and wheezing over the past 2 to 3 days. Still smoking approximately half a pack of cigarettes a day. When asked, he states that he ran out all his home prescription medications "a few months ago" and has not seen his PCP in approximately 8 months. This includes his home albuterol rescue inhaler which he has not had for multiple months. Denies recent fever or chills, has been having a nonproductive cough with substernal chest tightness which has resolved after receiving breathing treatments by EMS and in the ED prior to admission. Denies recent nausea, vomiting, hematemesis, dysuria, hematuria, abdominal pain, diarrhea, lower extremity swelling, and recent trauma. When asked, he confirms that he has been experiencing dark stool for "about 3 days". Denies recent NSAID use such as Advil, Aleve, Motrin. Denies recent use of aspirin. We discussed his recent alcohol consumption. He explains that he recently started a 30-day program for alcohol cessation. His last drink was approximately 4 days ago. Prior to that he was drinking approximately 1 L of rum a day. States that he quit cold turkey approximately 4 days ago but denies any recent withdrawal symptoms. We discussed CODE STATUS he confirms that he is a full code and would want his daughter to make medical decisions for him if he cannot make them himself. Please refer to Dr. Babin's attestation for any changes to the treatment plan Discharge Exam General-alert and oriented x3, no fever, no chills HEENT-head atraumatic and normocephalic, pupils equal and reactive to light, extraocular muscles intact Neck-no lymphadenopathy or thyromegaly, trachea midline Chest-clear to auscultation. No rales, wheezing or rhonchi Cardiac-regular rate and rhythm, normal S1 and S2 Abdomen-normal bowel sounds, no hepatosplenomegaly Extremities-no cyanosis, clubbing, or edema Neuro-cranial nerves II through XII intact, motor and sensory function within normal limits, strength symmetrical, no focal deficits Psych-normal affect, normal mood Discharge Plan Discharge Items Patient Disposition: Home - Self-Care Reason For Visit: SOB, CHEST TIGHTNESS, HYPOXIA, HYPOKALEMIA Discharge Diagnosis: Acute exacerbation asthma, fecal occult blood positivity with anemia, hypokalemia, hypomagnesemia, elevated TSH with low free T4 level, closed head injury without loss of consciousness or concussion Activity: Resume your previous activity Non-emergency contact: Primary Care Provider Call non-emergency contact if: you have any medication questions and your symptoms worsen Follow-up/Referrals: Sharyn Chi DO [Primary Care Provider] - Diet: Regular Addtl Attending Provider Instructions: Alcohol cessation is highly recommended. Thyroid dosage has been increased. Omeprazole has been switched to Protonix (pantoprazole) for stomach acid suppression. Pending Studies at Discharge: No Stand-Alone Forms: My [facility], Smoking Cessation Medications and DC Order Prescriptions: New cyanocobalamin (vitamin B-12) [Vitamin B-12] 100 mcg Tablet 100 mcg PO QAM Qty: 30 0RF pantoprazole 40 mg Tablet,Delayed Release (Dr/Ec) 40 mg PO QAM Qty: 30 0RF folic acid 1 mg Tablet 1 mg PO QAM Qty: 30 0RF levothyroxine [Synthroid] 200 mcg Tablet 200 mcg PO DAILYBB Qty: 30 0RF Continued atorvastatin 40 mg tablet 40 mg PO QPM Qty: 90 3RF Hold Instructions: Resume on 09/15/23. escitalopram oxalate 20 mg tablet 20 mg PO QPM Qty: 90 1RF ezetimibe 10 mg tablet 10 mg PO HS Hold Instructions: Resume on 09/15/23. furosemide 40 mg tablet 40 mg PO QAM valsartan 320 mg tablet 320 mg PO QAM folic acid 1 mg tablet 1 mg PO QAM albuterol sulfate 90 mcg/actuation HFA aerosol inhaler 1 puff inhalation Q4 PRN (Reason: sob) loperamide 2 mg Capsule 2 mg PO Q2H PRN (Reason: loose stool) Qty: 30 0RF magnesium oxide [MagOx] 400 mg (241.3 mg magnesium) tablet 400 mg PO DAILY Qty: 7 0RF potassium chloride 20 mEq tablet extended release 20 meq PO DAILY Qty: 7 0RF Discontinued omeprazole 40 mg capsule,delayed release(DR/EC) 40 mg PO BID Qty: 60 3RF levothyroxine 125 mcg tablet 125 mcg PO QAM Qty: 30 3RF Discharge Orders: Discharge Order (Routine); Ordered 02/03/24 Ordered By: Italo Polanco Admission Data Admit Date/Time: 02/01/24 10:11 Attending Provider: Italo Polanco Admit Provider: Yoel Babin Primary Care Provider: Sharyn Chi Other Providers[facility]; [facility] Consultations 02/01/24 10:09 ED Decision to Admit Stat 02/01/24 10:39 Consult Gastroenterology Routine Diagnostic Imagining Performed 02/03/24 08:[address] [CT head/brain wo con] Stat Pending Results Patient Have Any Pending Studies at Discharge: No Discharge Instructions Given to Patient (Per Discharging Provider) Alcohol cessation is highly recommended. Thyroid dosage has been increased. Omeprazole has been switched to Protonix (pantoprazole) for stomach acid suppression. Total Time Total Time Spent Total Time Spent (In Minutes): 45 minutes Coding Level of Care Code 49132 INP/OBS DISCH >30 MIN Diagnoses Asthma exacerbation J45.901 Anemia D64.9 Anemia type: unspecified type Hypokalemia E87.6 Alcohol abuse F10.10 Hypothyroidism E03.9 Hypertension I10 Tobacco abuse Z72.0 Closed head injury without loss of consciousness S09.90XA
--- NOTE | 2024-02-05 20:24 | Coding Query ---
ANEMIA To promote full compliance with coding requirements relating to patient care, physician participation is requested in all cases of pediatric critical care nurse uncertainty. Please assist us with the question(s) below: Coding Question(s): The record reflects the following clinical findings: EMR makes following statement in regards to the patient's presenting anemia: Anemia: Plan: Hemoglobin noted to be 7.1 today Long history of anemia multifactorial in nature including iron deficiency, B12/folate deficiency, chronic alcohol abuse Patient's noted multiple days of melanotic stool, is heme positive in the ED today Was typed and screened in the ED, will type and cross and hold 2 units PRBCs for now Blood consent was obtained at the time of the admission GI consult has been placed Status post 40 mg IV pantoprazole in the ED, will continue with 40 mg IV twice daily moving forward Will obtain anemia workup prior to patient receiving any blood products Monitor CBC every 6 hours transfuse for hemoglobin less than 7 or decompensation The medical record reflects the following clinical evidence: Clinical Indicators: As above. Risk Factor(s): Heme positive stools, multiple day history of melanotic stools, Treatment: As above If these findings are indicative of anemia, please specify the known or suspected type by placing an "X" within the parenthesis (x). If other, please document type. Examples are: ( ) Acute blood loss anemia ( ) Acute Postoperative blood loss anemia ( ) Anemia, unspecified or other ( x) Other: (please specify) chronic GI blood loss and bone marrow suppression from alcohol ____Possible GI bleed _x___Other explanation of clinical findings ____Unable to determine (no explanation for clinical findings) Thank you Mary SALGUERO
== END 2024-02-03 14:04 | disposition home or self-care (01) | DRG 202 ==
LOC: ED 08:06 → SUATTDRO 10:11 → EDINP 10:11 → 4W 15:33

== ENCOUNTER 2024-12-16 19:19 | Inpatient (IN) ==
--- NOTE | 2024-12-16 20:01 | Emergency Department Note ---
Impression & Plan CHI (closed head injury), Contusion of scalp, GI bleed, Alcohol abuse, Hypomagnesemia, Hypokalemia, Anemia, Elevated lipase, EARLINE (acute kidney injury) ED Provider Note ED Provider Note NAME: SACHIN MCCALL AGE:59 SEX: Male : 1965 ARRIVES VIA: EMS INFORMANT: Patient ED PROVIDER(s): Melissa Hong DO CHIEF COMPLAINT: head injury HPI: This is a 59-year-old male who presents emergency department due to concern for head injury. Patient states he fell yesterday and struck his head on the fireplace. He cannot recall how he fell or why he fell or if he passed out. Patient states he does have a headache, denies dizziness, vision changes, or vomiting. Patient states he does consume alcohol but has not had any in 2 days. He states states he typically drinks hard liquor and denies any history of alcohol withdrawal. He denies chest pain, shortness of breath, abdominal pain. PAST MEDICAL HISTORY:See Below PAST SURGICAL HISTORY:See Below FAMILY HISTORY:See Below SOCIAL HISTORY:See Below HOME MEDICATIONS:See Below ALLERGIES:See Below VITALS:See Below PHYSICAL EXAMINATION: GENERAL: alert, unwell appearing, well nourished, no distress, non-toxic, covered in urine and feces on arrival HEAD: nc, contusion/edema noted right occiptal region with overlying matted hair, no evidence of facial trauma EYE EXAM: normal conjunctiva, PERRL and EOM's grossly intact OROPHARYNX: no exudate, no erythema, lips, buccal mucosa, and tongue normal and mucous membranes are dry NECK: supple, no nuchal rigidity, no adenopathy, non-tender, FROM LUNGS: Clear to auscultation. Normal chest wall mechanics, no w/r/r HEART: no murmurs, S1 normal and S2 normal CHEST WALL: no crepitus, no step off, no evidence of trauma ABDOMEN: abdomen soft, non-tender, normo-active bowel sounds, no masses, no rebound or guarding. PELVIS: stable to compression, nontender with palpation BACK: Back is symmetrical on inspection and there is no deformity, no midline tenderness, no CVA tenderness. SKIN: no rashes, petechiae, orbruising UPPER EXTREMITIES: upper extremities are grossly normal. FROM, nml pulses b/l. No evidence of trauma or deformity. LOWER EXTREMITIES: No pitting edema. FROM, nml pulses b/l. No evidence of trauma or deformity. NEURO EXAM: Normal sensorium, cranial nerves II-XII grossly intact, normal speech, no facial droop,nogross weakness of arms, no gross weakness of legs. Gross sensation intact. Vital Signs: reviewed and remarkable Differential Diagnosis: ICH, CHI, fracture, contusion, sprain, strain, laceration, abrasions, hemoperitoneum, occult spine injury, acute ligamentous injury, retroperitoneal bleeding, as well as others were considered MEDICAL DECISION MAKING: THis is a 59 yo male who presents with concern for a chi that he states happened yesterday. Patient dishoveled, foul smelling, and covered in urine/feces. He was tachycardic but other VS stable. Stool noted to be melenotic and heme positive at bedside on guaiac testing. Labs drawn and sent, IV established, EKG and CXR performed and interpreted at bedside, and patient placed on telemetry. He was started on IVF and protonix bolus/drip. We discussed his worsening anemia and GI bleed. He denies any prior his of GI bleed but states he has previously needed blood transfusions. Transfusion consent form signed and transfusion ordered additionally. He was given IV thiamine, IV folic acid, and IV magnesium additionally. Patient continued to deny any concern for alcohol withdrawal but was persistently tachycardic. Minimal alcohol on testing at bedside. Patient initially sent for CT head/cspine which were negative, he was sent back for abd/pelvis after elevated lft's and lipase noted on labs. I suspect these are from his alcohol abuse and dehydration as they have previously been this elevated also. Case discussed with hospitalist team for further evaluation. We did discuss elevated risk of significant alcohol withdrawal. Given hx and GI bleed, octreotide also added after discussion with team. Consultation(s): 2345: Discussed with Dr. Carcamo, the hospitalist team, for additional evaluation and management. ER Treatment Provided: See below Diagnostics Interpreted By Me: -ECG: Sinus tachycardia 108, normal axis, normal intervals, no acute ST/T wave changes -Cardiac Monitoring: An order was placed for continuous cardiac monitoring. The monitor shows a rate of 102 with sinus tachycardia rhythm. -Laboratory studies: As stated above and show below. -Imaging studies: CT head: no ich Triage Nursing Note Reviewed Prior/Outside Records Reviewed Critical Care: Critical care of 58 min performed to assess and manage high likelihood of life-threatening anemia and GI bleed, involving labs and imaging performed with assessment to evaluate trauma, anemia, GI bleed diagnosis with frequent reassessment. This time includes bedside time, treatment discussions with patient/family/consultants, documentation time and excludes procedure time. Past Med/Surg History Problem List (Updated 12/18/24 @ 23:19 by Melissa Hong, DO) Anemia (Acute) Mucosal abnormality of duodenum Elevated lipase (Acute) Electrolyte imbalance Cirrhosis Acute blood loss anemia Alcohol abuse (Acute) GI bleed (Acute) Contusion of scalp (Acute) CHI (closed head injury) (Acute) Closed head injury without loss of consciousness Asthma exacerbation Hypokalemia (Acute) Hypomagnesemia (Acute) Right shoulder pain (Acute) EARLINE (acute kidney injury) (Acute) Noncompliance with medication regimen 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 Acute pancreatitis Sepsis Diarrhea (Acute) Abnormal CT of the head (Acute) Weakness (Acute) Hypomagnesemia (Acute) Anemia (Acute) Acute renal failure (ARF) (Acute) Hypomagnesemia Elevated LFTs Hyperlipidemia Acute alcoholic hepatitis (Acute) Benign localized prostatic hyperplasia with lower urinary tract symptoms (LUTS) Prediabetes Presumed- Hgb A1C 6.3 on 10/12/22 Encounter for pre-operative examination Renal insufficiency Dyspnea Left rotator cuff tear Spermatocele Abnormal CT lung screening Coronary artery calcification seen on CAT scan chest CT 03/2020 negative stress test 06/2021 Radial head fracture, closed Left-sided chest pain (Acute) Current smoker Adjustment disorder with depressed mood (Acute) Allergic rhinitis (Acute) Barretts esophagus (Acute) Chronic cough (Acute) Colon polyps (Acute) Hiatal hernia (Acute) Inhibited sexual excitement (Acute) Periodic limb movements of sleep (Acute) Small airways disease (Acute) prn inhaler for this > rare res inh use Asthma INHALER DAILY Hyperlipidemia (Chronic) Hypertension (Chronic) Medical History Tobacco abuse Anemia Alcohol abuse Obstructive sleep apnea no device Hypertension Alcohol withdrawal Hypothyroidism GERD (gastroesophageal reflux disease) UTI (urinary tract infection) Thrombocytopenia Acute dehydration Anxiety Hypothyroidism GERD (gastroesophageal reflux disease) Surgical History S/P wrist surgery R WRIST REPAIR OF TORN TENDON Hx of vasectomy History of colonoscopy History of esophagogastroduodenoscopy (EGD) History of appendectomy History of tooth extraction WISDOM TEETH History of tonsillectomy S/P LASIK surgery of both eyes History of lumbar spinal fusion Family History Father Alcohol abuse COPD (chronic obstructive pulmonary disease) Hypertension Reported family history of early sudden deaths Mother Hypertension Hyperlipidemia Brother Hypertension Sister Graves' disease Social History Smoking Status: Heavy tobacco smoker Tobacco Type: Cigarettes Age Started Using Tobacco: 17; packs per day: 1; Cigarettes Per Day: 1 PPD; Second Hand Exposure: No; Do You Dip or Chew Tobacco: No; Hx Alcohol Use: Yes Alcohol type: hard liquor Hx Substance Use: No Preferred Language: Romansh Communication Ability: Effective Visual Impairment: Limited Hearing Ability: Normal Certified Adaptive Physical Educator Required: No Beliefs That Will Affect Care: None marital status: Current Living Situation: Alone Current Living Situation Comment: Live at home alone current occupational status: employed current occupation: [employer] Feels Safe at Home: Yes Childhood Exposure to Second-Hand Smoke: No caffeine: Yes Dental Care, Regularly: Yes Physical Activity Frequency: Does not Exercise Seatbelt Use: always Sunscreen Use: No Assistive Devices: Cane and Walker Allergies Allergies Allergy/AdvReac Type Severity Reaction Status Date / Time Sulfa (Sulfonamide Allergy Intermediate HIVES Verified 12/17/24 14:12 Antibiotics) MARGARET Inhibitors AdvReac Intermediate COUGH Verified 12/17/24 14:12 amlodipine AdvReac Intermediate FATIGUE Verified 12/17/24 14:12 clonidine AdvReac Intermediate HEADACHES Verified 12/17/24 14:12 varenicline [From Chantix] AdvReac Intermediate JITTERY/SHA Verified 12/17/24 14:12 [facility] Home Meds Home Medications Medication Instructions Recorded Confirmed albuterol sulfate 90 mcg/actuation 0 puff inhalation UD PRN sob 10/17/23 12/17/24 aerosol inhaler hydroxyzine pamoate 25 mg capsule 25 mg PO Q6H PRN itching 03/21/24 04/04/24 atorvastatin 40 mg tablet 40 mg PO DAILY 12/17/24 12/17/24 escitalopram oxalate 20 mg tablet 20 mg PO DAILY 12/17/24 12/17/24 valsartan 320 1 tab PO DAILY 12/17/24 12/17/24 mg-hydrochlorothiazide 12.5 mg tablet Previous Rx's Medication Instructions Recorded cyanocobalamin (vitamin B-12) 100 100 mcg PO QAM #30 tabs 02/03/24 mcg tablet (Vitamin B-12) levothyroxine 200 mcg tablet 200 mcg PO DAILYBB #30 tabs 02/03/24 (Synthroid) pantoprazole 40 mg tablet,delayed 40 mg PO QAM #30 tabs 02/03/24 release pantoprazole 40 mg tablet,delayed 40 mg PO BID #60 tabs 12/18/24 release potassium chloride 20 mEq 20 meq PO DAILY #30 tabs 12/18/24 tablet,extended release(part/cryst) sucralfate 100 mg/mL oral 1 g (10 mL) PO QID #480 mL 12/18/24 suspension Results & Data (ED) Vital Signs Vital Signs - 24 hr 12/16/24 19:15 12/16/24 19:15 12/16/24 19:15 Temperature 37.2 C 37.2 C 37.2 C Temperature Source Oral Oral Oral Pulse Rate 108 H Pulse Rate [Finger] 108 H 108 H Pulse Rhythm [Finger] Pulse Strength [Finger] Respiratory Rate 16 16 16 Respiratory Effort / Characteristics Spontaneous Spontaneous Spontaneous Respiratory Depth Blood Pressure 130/80 Blood Pressure [Left Arm] 130/80 130/80 Blood Pressure Mean 96 Blood Pressure Mean [Left Arm] 96 96 Blood Pressure Position Lying Blood Pressure Position [Left Arm] Sitting Lying Pulse Oximetry 98 99 99 Oxygen Delivery Method Room Air Room Air Room Air Sepsis Recent Fever Within 48 Hours No Sepsis New/Unexplained Change in Mental Status N/A Sepsis Action Taken by Nursing No Action Required 12/16/24 19:26 12/16/24 21:04 12/16/24 21:44 Temperature Temperature Source Pulse Rate 112 H Pulse Rate [Finger] 113 H 121 H Pulse Rhythm [Finger] Regular Pulse Strength [Finger] Normal Respiratory Rate 20 20 Respiratory Effort / Characteristics Non-Labored Spontaneous Respiratory Depth Normal Blood Pressure Blood Pressure [Left Arm] 139/75 122/68 Blood Pressure Mean Blood Pressure Mean [Left Arm] 96 86 Blood Pressure Position Blood Pressure Position [Left Arm] Pulse Oximetry 100 100 Oxygen Delivery Method Room Air Room Air Sepsis Recent Fever Within 48 Hours Sepsis New/Unexplained Change in Mental Status Sepsis Action Taken by Nursing 12/16/24 22:22 12/16/24 22:38 12/16/24 22:55 Temperature 36.9 C 36.9 C Temperature Source Oral Oral Pulse Rate 105 H 107 H Pulse Rate [Finger] 110 H Pulse Rhythm [Finger] Pulse Strength [Finger] Respiratory Rate 18 20 26 H Respiratory Effort / Characteristics Spontaneous Respiratory Depth Normal Blood Pressure 141/83 H 133/72 Blood Pressure [Left Arm] 130/74 Blood Pressure Mean 102 92 Blood Pressure Mean [Left Arm] 92 Blood Pressure Position Lying Blood Pressure Position [Left Arm] Pulse Oximetry 100 100 100 Oxygen Delivery Method Room Air Sepsis Recent Fever Within 48 Hours Sepsis New/Unexplained Change in Mental Status Sepsis Action Taken by Nursing 12/16/24 23:00 12/16/24 23:10 12/16/24 23:20 Temperature 36.8 C 36.8 C Temperature Source Oral Oral Pulse Rate 103 H 104 H Pulse Rate [Finger] 103 H Pulse Rhythm [Finger] Pulse Strength [Finger] Respiratory Rate 18 18 Respiratory Effort / Characteristics Respiratory Depth Normal Blood Pressure 141/73 H Blood Pressure [Left Arm] 141/73 H Blood Pressure Mean 95 Blood Pressure Mean [Left Arm] 95 Blood Pressure Position Blood Pressure Position [Left Arm] Pulse Oximetry 98 100 Oxygen Delivery Method Room Air Sepsis Recent Fever Within 48 Hours Sepsis New/Unexplained Change in Mental Status Sepsis Action Taken by Nursing Laboratory Data 12/18/24 05:48 12/18/24 05:48 Lab Results 12/16/24 12/16/24 12/16/24 Range/Units 19:35 19:41 22:32 WBC 6.42 (4.8-10.8) K/ul RBC 2.35 L (4.70-6.10) M/uL Hgb 6.6 L* (14.0-18.0) g/dl POC Hgb 7.8 L (14.0-18.0) g/dl Hct 20.4 L* (42.0-52.0) % POC Hct 23 L (42-52) % MCV 86.8 (80.0-100.0) fL MCH 28.1 (25.0-34.0) pg MCHC 32.4 (32.0-36.0) g/dL RDW Std Deviation 61.1 H (36.4-46.3) fL RDW Coeff of Joshua 19.8 H (11.5-14.5) % Plt Count 57 L (130-400) K/uL MPV 11.0 (9.4-12.4) fL Immature Gran % (Auto) 0.6 % Neut % (Auto) 74.1 % Lymph % (Auto) 9.8 % [place] % (Auto) 15.3 % Eos % (Auto) 0.0 % Baso % (Auto) 0.2 % Neut # (Auto) 4.76 (1.40-6.50) K/uL Lymph # (Auto) 0.63 L (1.20-3.40) K/uL [place] # (Auto) 0.98 H (0.11-0.59) K/uL Eos # (Auto) 0.00 (0.00-0.50) K/uL Baso # (Auto) 0.01 (0.00-0.20) K/uL Immature Gran # (Auto) 0.04 (0.01-0.20) K/uL Absolute Nucleated RBC 0.03 (0.00-0.12) K/uL Nucleated RBC % (auto) 0.5 % RBC Morphology Unremarkable PT 13.1 H (9.0-12.0) Seconds INR 1.2 H (0.9-1.1) VBG pH 7.31 L (7.36-7.41) VBG pCO2 17 L (38-50) mmHg VBG pO2 35 mmHg VBG HCO3 9 mmol/L VBG O2 Saturation < 60.0 % VBG Base Excess -15.1 mEq/L POC Sodium 133 L (135-144) mmol/L Sodium 134 L (136-145) mmol/L POC Potassium 3.1 L (3.3-5.0) mmol/L Potassium 3.2 L (3.5-5.1) mmol/L POC Chloride 98 L (101-112) mmol/L Chloride 93 L (98-107) mmol/L Carbon Dioxide 9 L* (21-32) mmol/L POC Total CO2 10 L (24-31) mmol/L Anion Gap 32 H (3-11) POC Anion Gap 29.0 H (16-25) mmol/L POC BUN 8 (7-18) mg/dl BUN 10 (6-23) mg/dl Creatinine 1.73 H (0.6-1.4) mg/dl POC Creatinine 2.0 H (0.6-1.3) mg/dl Est Cr Clr Drug Dosing 42.5 ml/min eGFR 44.63 BUN/Creatinine Ratio 5.8 L (10-20) Glucose 107 H (70-99(Fasting)) mg/dl POC Glucose (other) 107 H (70-99) mg/dl Calcium 8.3 L (8.6-10.3) mg/dl POC Ioniz Calcium Yolanda 0.99 L (1.12-1.32) mmol/l Magnesium 1.4 L (1.7-2.4) mg/dl Total Bilirubin 1.5 H (0.2-1.0) mg/dl AST 433 H (13-39) U/L ALT 142 H (7-52) U/L Alkaline Phosphatase 150 H (34-104) U/L Troponin I High Sens 16.9 (0-20) pg/ml Total Protein 7.6 (6.0-8.3) gm/dl Albumin 4.0 (3.4-5.0) gm/dl Globulin 3.6 (2.5-4.0) gm/dl Albumin/Globulin Ratio 1.1 (0.9-2) Lipase 1472 H (11-82) U/L TSH 29.962 H (0.300-4.500) uIu/ml Free T4 0.55 L (0.61-1.60) ng/dl Ethyl Alcohol mg/dL 65.1 H (<10.0) mg/dl Blood Type O Positive Antibody Screen NEGATIVE Crossmatch See Detail 12/16/24 Range/Units 23:25 WBC (4.8-10.8) K/ul RBC (4.70-6.10) M/uL Hgb (14.0-18.0) g/dl POC Hgb (14.0-18.0) g/dl Hct (42.0-52.0) % POC Hct (42-52) % MCV (80.0-100.0) fL MCH (25.0-34.0) pg MCHC (32.0-36.0) g/dL RDW Std Deviation (36.4-46.3) fL RDW Coeff of Joshua (11.5-14.5) % Plt Count (130-400) K/uL MPV (9.4-12.4) fL Immature Gran % (Auto) % Neut % (Auto) % Lymph % (Auto) % [place] % (Auto) % Eos % (Auto) % Baso % (Auto) % Neut # (Auto) (1.40-6.50) K/uL Lymph # (Auto) (1.20-3.40) K/uL [place] # (Auto) (0.11-0.59) K/uL Eos # (Auto) (0.00-0.50) K/uL Baso # (Auto) (0.00-0.20) K/uL Immature Gran # (Auto) (0.01-0.20) K/uL Absolute Nucleated RBC (0.00-0.12) K/uL Nucleated RBC % (auto) % RBC Morphology PT (9.0-12.0) Seconds INR (0.9-1.1) VBG pH (7.36-7.41) VBG pCO2 (38-50) mmHg VBG pO2 mmHg VBG HCO3 mmol/L VBG O2 Saturation % VBG Base Excess mEq/L POC Sodium (135-144) mmol/L Sodium 133 L (136-145) mmol/L POC Potassium (3.3-5.0) mmol/L Potassium 3.2 L (3.5-5.1) mmol/L POC Chloride (101-112) mmol/L Chloride 96 L (98-107) mmol/L Carbon Dioxide 9 L* (21-32) mmol/L POC Total CO2 (24-31) mmol/L Anion Gap 28 H (3-11) POC Anion Gap (16-25) mmol/L POC BUN (7-18) mg/dl BUN 9 (6-23) mg/dl Creatinine 1.45 H (0.6-1.4) mg/dl POC Creatinine (0.6-1.3) mg/dl Est Cr Clr Drug Dosing 50.7 ml/min eGFR 55.17 BUN/Creatinine Ratio 6.2 L (10-20) Glucose 97 (70-99(Fasting)) mg/dl POC Glucose (other) (70-99) mg/dl Calcium 7.6 L (8.6-10.3) mg/dl POC Ioniz Calcium Yolanda (1.12-1.32) mmol/l Magnesium (1.7-2.4) mg/dl Total Bilirubin (0.2-1.0) mg/dl AST (13-39) U/L ALT (7-52) U/L Alkaline Phosphatase (34-104) U/L Troponin I High Sens (0-20) pg/ml Total Protein (6.0-8.3) gm/dl Albumin (3.4-5.0) gm/dl Globulin (2.5-4.0) gm/dl Albumin/Globulin Ratio (0.9-2) Lipase (11-82) U/L TSH (0.300-4.500) uIu/ml Free T4 (0.61-1.60) ng/dl Ethyl Alcohol mg/dL (<10.0) mg/dl Blood Type Antibody Screen Crossmatch Administered Medications Discontinued Medications Escitalopram Oxalate (Escitalopram Oxalate 20 Mg Tab) 20 mg PO DAILY NAEEM Stop: 01/16/25 08:59 Last Admin: 12/18/24 08:21 Dose: 20 mg Documented By: Admin: 12/17/24 09:44 Dose: 20 mg Documented By: ANTONIO Sodium Chloride (Nss) 1,000 mls @ 999 mls/hr IV .Q1H1M ONE Stop: 12/16/24 20:51 Last Infusion: 12/16/24 22:33 Dose: Infused Documented By: Admin: 12/16/24 20:40 Dose: 999 mls/hr Documented By: GIOVANNI Pantoprazole Sodium 40 mg/ (Dextrose) 100 mls @ 20 mls/hr IV Q5H NAEEM Stop: 01/15/25 20:14 Last Infusion: 12/17/24 17:12 Dose: Infused Documented By: Admin: 12/17/24 12:45 Dose: 8 mg/hr, 20 mls/hr Documented By: Infusion: 12/17/24 12:45 Dose: Infused Documented By: Admin: 12/17/24 09:41 Dose: 8 mg/hr, 20 mls/hr Documented By: Infusion: 12/17/24 08:41 Dose: Infused Documented By: Admin: 12/17/24 03:41 Dose: 8 mg/hr, 20 mls/hr Documented By: Infusion: 12/17/24 02:10 Dose: Infused Documented By: Infusion: 12/16/24 21:10 Dose: 8 mg/hr, 20 mls/hr Documented By: Infusion: 12/16/24 20:48 Dose: 0 mg/hr, 0 mls/hr Documented By: Admin: 12/16/24 20:43 Dose: 8 mg/hr, 20 mls/hr Documented By: GIOVANNI Pantoprazole Sodium 80 mg/ (Dextrose) 120 mls @ 480 mls/hr IV NOW ONE Stop: 12/16/24 20:05 Last Infusion: 12/16/24 21:03 Dose: Infused Documented By: Admin: 12/16/24 20:47 Dose: 480 mls/hr Documented By: GIOVANNI Thiamine HCl 500 mg/ Sodium (Chloride) 55 mls @ 210 mls/hr IV NOW STA Stop: 12/16/24 20:06 Last Infusion: 12/16/24 21:03 Dose: Infused Documented By: Admin: 12/16/24 20:40 Dose: 210 mls/hr Documented By: GIOVANNI Folic Acid 1 mg/ Syringe 10 mls @ 5 mls/min IV NOW STA Stop: 12/16/24 19:52 Last Admin: 12/16/24 20:39 Dose: 5 mls/min Documented By: GIOVANNI Magnesium Sulfate/Dextrose (Magnesium Sulfate / D5w) 1 gm in 100 mls @ 100 mls/hr IV NOW STA Stop: 12/16/24 21:39 Last Infusion: 12/16/24 22:33 Dose: Infused Documented By: Admin: 12/16/24 21:08 Dose: 100 mls/hr Documented By: GIOVANNI Lactated Ringer's (Lr) 1,000 mls @ 999 mls/hr IV .Q1H1M ONE Stop: 12/16/24 21:41 Last Infusion: 12/16/24 23:47 Dose: Infused Documented By: Admin: 12/16/24 21:09 Dose: 999 mls/hr Documented By: GIOVANNI Lactated Ringer's (Lr) 1,000 mls @ 250 mls/hr IV .Q4H NAEEM Stop: 12/19/24 23:29 Last Infusion: 12/17/24 03:40 Dose: Infused Documented By: Admin: 12/17/24 00:43 Dose: 250 mls/hr Documented By: GABI Octreotide Acetate 50 mcg/ (Syringe) 10 mls @ 3 mls/min IV ONE STA Stop: 12/16/24 23:45 Last Admin: 12/17/24 01:06 Dose: 3 mls/min Documented By: GABI Octreotide Acetate 500 mcg/ (Sodium Chloride) 100.5 mls @ 10.05 mls/hr IV .Q10H NAEEM Stop: 01/15/25 23:44 Last Infusion: 12/17/24 17:12 Dose: Infused Documented By: Admin: 12/17/24 09:51 Dose: 50 mcg/hr, 10.1 mls/hr Documented By: Infusion: 12/17/24 09:51 Dose: Infused Documented By: Admin: 12/17/24 01:08 Dose: 50 mcg/hr, 10.1 mls/hr Documented By: GABI Lactated Ringer's (Lr) 1,000 mls @ 60 mls/hr IV .[id number] NAEEM Stop: 12/18/24 04:45 Last Infusion: 12/17/24 21:19 Dose: Infused Documented By: Admin: 12/17/24 15:52 Dose: 200 mls/hr Documented By: Infusion: 12/17/24 14:40 Dose: Infused Documented By: Admin: 12/17/24 09:40 Dose: 200 mls/hr Documented By: Infusion: 12/17/24 09:40 Dose: Infused Documented By: Infusion: 12/17/24 06:49 Dose: 200 mls/hr Documented By: Infusion: 12/17/24 04:15 Dose: 0 mls/hr Documented By: Admin: 12/17/24 03:41 Dose: 200 mls/hr Documented By: ABRAHAM Magnesium Sulfate/Dextrose (Magnesium Sulfate / D5w) 1 gm in 100 mls @ 50 mls/hr IV Q2H NAEEM Stop: 12/17/24 06:49 Last Infusion: 12/17/24 10:31 Dose: Infused Documented By: Admin: 12/17/24 07:52 Dose: 50 mls/hr Documented By: Infusion: 12/17/24 07:52 Dose: Infused Documented By: Admin: 12/17/24 05:52 Dose: 50 mls/hr Documented By: Infusion: 12/17/24 05:41 Dose: Infused Documented By: Admin: 12/17/24 03:41 Dose: 50 mls/hr Documented By: ARBAHAM Thiamine HCl 100 mg/ Syringe 10 mls @ 2 mls/min IV QAM NAEEM Stop: 01/16/25 08:59 Last Admin: 12/18/24 08:20 Dose: 2 mls/min Documented By: Admin: 12/17/24 09:41 Dose: 2 mls/min Documented By: ANTONIO Folic Acid 1 mg/ Syringe 10 mls @ 5 mls/min IV QAM [facility] Stop: 01/16/25 08:59 Last Admin: 12/18/24 08:20 Dose: 5 mls/min Documented By: Admin: 12/17/24 09:41 Dose: 5 mls/min Documented By: ANTONIO Calcium Gluconate () 1,000 mg in 60 mls @ 240 mls/hr IV Q15M [facility] Stop: 12/17/24 01:19 Last Infusion: 12/17/24 04:55 Dose: Infused Documented By: Admin: 12/17/24 04:42 Dose: 240 mls/hr Documented By: Infusion: 12/17/24 04:40 Dose: Infused Documented By: Admin: 12/17/24 04:25 Dose: 240 mls/hr Documented By: ABRAHAM Magnesium Sulfate/Dextrose (Magnesium Sulfate / D5w) 1 gm in 100 mls @ 50 mls/hr IV Q2H [facility] Stop: 12/17/24 10:59 Last Infusion: 12/17/24 11:52 Dose: Infused Documented By: Admin: 12/17/24 09:44 Dose: 50 mls/hr Documented By: Infusion: 12/17/24 09:44 Dose: Infused Documented By: Admin: 12/17/24 09:43 Dose: 50 mls/hr Documented By: ANTONIO Potassium Phosphate 15 mmol/ (Sodium Chloride) 255 mls @ 88 mls/hr IV ONE ONE Stop: 12/17/24 10:08 Last Infusion: 12/17/24 10:31 Dose: Infused Documented By: Admin: 12/17/24 09:39 Dose: 88 mls/hr Documented By: ANTONIO Sodium Chloride (Nss) 500 mls @ 15 mls/hr IV .Q24H [facility] Stop: 12/18/24 14:29 Last Infusion: 12/17/24 15:53 Dose: Infused Documented By: Admin: 12/17/24 15:52 Dose: Not Given Documented By: Admin: 12/17/24 14:23 Dose: 15 mls/hr Documented By: Potassium Chloride (K Felice / Wtr) 10 meq in 100 mls @ 100 mls/hr IV Q1H NAEEM Stop: 12/18/24 09:14 Last Infusion: 12/18/24 10:58 Dose: Infused Documented By: Admin: 12/18/24 09:49 Dose: 100 mls/hr Documented By: Infusion: 12/18/24 09:49 Dose: Infused Documented By: Admin: 12/18/24 09:49 Dose: 100 mls/hr Documented By: ANTONIO Ioversol (Optiray 320 100ml) 95 ml IV ONCE ONE Stop: 12/16/24 21:32 Last Admin: 12/16/24 21:32 Dose: 95 ml Documented By: YOANNA Levothyroxine Sodium (Levothyroxine Sodium 200 Mcg Tablet) 200 mcg PO DAILYBB [facility] Stop: 01/16/25 06:29 Last Admin: 12/18/24 05:35 Dose: 200 mcg Documented By: Admin: 12/17/24 05:30 Dose: 200 mcg Documented By: ABRAHAM Lidocaine HCl (Lidocaine 2% 2 Ml Vial/Amp(20mg/Ml)) Confirm Administered Dose 80 mg INFIL .STK-MED ONE Stop: 12/17/24 14:30 Last Admin: 12/17/24 15:26 Dose: Not Given Documented By: ANTONIO Miscellaneous (Stat Iv/Im) 1 each N/A NOW STA Stop: 12/16/24 23:43 Last Admin: 12/17/24 03:40 Dose: Not Given Documented By: ABRAHAM Miscellaneous (Remove Nicoderm Patch) 1 each N/A DAILY@0859 [facility] Stop: 01/17/25 08:58 Last Admin: 12/18/24 08:21 Dose: 1 each Documented By: ANTONIO Nicotine (Nicotine 14 Mg/24 Hr Patch) 1 patch TD QAM NAEEM Stop: 01/16/25 08:59 Last Admin: 12/18/24 08:21 Dose: 1 patch Documented By: Admin: 12/17/24 09:44 Dose: 1 patch Documented By: ANTONIO Pantoprazole Sodium (Pantoprazole Bolus/Drip) 1 each IV NOW STA Stop: 12/16/24 19:52 Last Admin: 12/16/24 20:46 Dose: Not Given Documented By: GIOVANNI Pantoprazole Sodium (Pantoprazole 40 Mg Tab) 40 mg PO BID NAEEM Stop: 01/16/25 20:59 Last Admin: 12/18/24 08:22 Dose: 40 mg Documented By: Admin: 12/17/24 20:07 Dose: 40 mg Documented By: ABRAHAM Potassium Chloride (Potassium Chloride Crtab 20 Meq Tabcr) 60 meq PO NOW STA Stop: 12/17/24 00:51 Last Admin: 12/17/24 04:25 Dose: 60 meq Documented By: ABRAHAM Potassium Chloride (Potassium Chloride Crtab 20 Meq Tabcr) 20 meq PO BID NAEEM Stop: 01/17/25 08:59 Last Admin: 12/18/24 08:25 Dose: 20 meq Documented By: ANTONIO Propofol (Propofol Iv Emulsion 10 Mg/Ml 20 Ml Vial) Confirm Administered Dose 400 mg IV .STK-MED ONE Stop: 12/17/24 14:30 Last Admin: 12/17/24 15:26 Dose: Not Given Documented By: ANTONIO Sucralfate (Sucralfate 1 Gm/10 Ml Udc) 1 gm PO QID NAEEM Stop: 01/16/25 16:59 Last Admin: 12/18/24 08:21 Dose: 1 gm Documented By: Admin: 12/17/24 20:07 Dose: 1 gm Documented By: Admin: 12/17/24 17:15 Dose: 1 gm Documented By: ANTONIO Imaging Data Radiologist's Impression: Cervical Spine CT 12/16/24 19:51 Exam(s): CT C SPINE EXAM: CT Cervical Spine Without Intravenous Contrast CLINICAL HISTORY: Reason for exam: trauma. TECHNIQUE: Axial computed tomography images of the cervical spine without intravenous contrast. CTDI is 24.21 mGy and DLP is 457.22 mGy-cm. Automated exposure control was utilized for the study. A dose lowering technique was utilized adhering to the principles of ALARA. COMPARISON: No relevant prior studies available. FINDINGS: Vertebrae: C3/4 grade 1 spondylolisthesis. Mild bilateral C3/4 neural foraminal narrowing identified. No acute fracture. Discs/spinal canal/neural foramina: Moderately advanced multilevel degenerative disc disease changes seen in the cervical spine. Soft tissues: Unremarkable. IMPRESSION: No acute fracture or dislocation Electronically signed by: Julien Smith MD 12/16/24 22:46 PM Chest X-Ray 12/16/24 19:51 Exam(s): XR CXR 1 VIEW EXAM: XR Chest, 1 View CLINICAL HISTORY: Reason for exam: dizziness. TECHNIQUE: Frontal view of the chest. COMPARISON: No relevant prior studies available. FINDINGS: Lungs: Unremarkable. No consolidation. Pleural space: Unremarkable. No pneumothorax. Heart: Unremarkable. No cardiomegaly. Mediastinum: Unremarkable. Normal mediastinal contour. Bones/joints: Unremarkable. No acute fracture. IMPRESSION: Normal chest x-ray. Electronically signed by: Julien Smith MD 12/16/24 22:[address] 12/16/24 19:51 Exam(s): CT HEAD Without Contrast EXAM: CT Head Without Intravenous Contrast CLINICAL HISTORY: Reason for exam: trauma. TECHNIQUE: Axial computed tomography images of the head/brain without intravenous contrast. CTDI is 38.1 mGy and DLP is 624.41 mGy-cm. Automated exposure control was utilized for the study. A dose lowering technique was utilized adhering to the principles of ALARA. COMPARISON: No relevant prior studies available. FINDINGS: Brain: Chronic periventricular ischemic demyelination changes seen due to small vessel disease. No hemorrhage. Ventricles: Unremarkable. No ventriculomegaly. Bones/joints: Unremarkable. No acute fracture. Soft tissues: There is scalp hematoma seen over the right parietal bone. Sinuses: Unremarkable as visualized. No acute sinusitis. Mastoid air cells: Unremarkable as visualized. No mastoid effusion. IMPRESSION: No acute findings in the head/brain. Electronically signed by: Julien Smith MD 12/16/24 22:37 PM Abdomen/Pelvis CT 12/16/24 20:55 Exam(s): CT ABDOMEN + PELVIS With Contrast IV Amt: 95ml EXAM: CT Abdomen and Pelvis With Intravenous Contrast CLINICAL HISTORY: Reason for exam: abn lft's/lipase. TECHNIQUE: Axial computed tomography images of the abdomen and pelvis with intravenous contrast. CTDI is 16.81 mGy and DLP is 895.82 mGy-cm. Automated exposure control was utilized for the study. A dose lowering technique was utilized adhering to the principles of ALARA. CONTRAST: Patient received 95ml of IV contrast COMPARISON: No relevant prior studies available. FINDINGS: Lung bases: Unremarkable. No mass. No consolidation. Mediastinum: Small hiatus hernia. ABDOMEN: Liver: Fatty liver. There is fatty infiltration of the liver. There is lobulation of the liver outline, suggestive of cirrhosis. Gallbladder and bile ducts: Unremarkable. No calcified stones. No ductal dilation. Pancreas: Unremarkable. No mass. No ductal dilation. Spleen: Unremarkable. No splenomegaly. Adrenals: Unremarkable. No mass. Kidneys and ureters: Unremarkable. No solid mass. No hydronephrosis. Stomach and bowel: There is mild colonic wall thickening more so on the right side. There is mild sigmoid colonic diverticulosis. No obstruction. PELVIS: Appendix: No findings to suggest acute appendicitis. Bladder: Unremarkable. No mass. Reproductive: Unremarkable as visualized. ABDOMEN and PELVIS: Intraperitoneal space: Unremarkable. No free air. No significant fluid collection. Bones/joints: No acute fracture. No dislocation. There is L5/S1 grade 1 spondylolisthesis with posterior spinal fusion repair of severe multilevel degenerative disc disease changes seen in the lumbar spine. Vasculature: Recanalization of the lumbrical vein is seen. No abdominal aortic aneurysm. Lymph nodes: Unremarkable. No enlarged lymph nodes. IMPRESSION: 1. Fatty liver and cirrhosis with portal hypertension 2. Diffuse colonic wall thickening which could be from portal colopathy Electronically signed by: Julien Smith MD 12/16/24 22:49 PM Discharge Plan Visit Data Chief Complaint: Fall Stated Complaint: FALL, HIT HEAD, BLEEDING, +ETOH ED Provider: Melissa Hong Discharge Problem: CHI (closed head injury), Contusion of scalp, GI bleed, Alcohol abuse, Hypomagnesemia, Hypokalemia, Anemia, Elevated lipase, EARLINE (acute kidney injury) Patient Disposition: Admitted As Inpatient Condition: Critical Discharge Instructions Interventions: ED Discharge Assessment Last Done: 12/17/24 02:49
[2024-12-16 20:21] LABS: Hematocrit (blood only) 20.4 % (42.0-52.0); Hemoglobin 6.6 g/dl (14.0-18.0); Mean Corpuscular Hemoglobin 28.1 pg (25.0-34.0); Mean Corpuscular Volume 86.8 fL (80.0-100.0); Platelet Count 57 K/uL (130-400); RDW Standard Deviation 61.1 fL (36.4-46.3); Red Blood Count 2.35 M/uL (4.70-6.10); White Blood Count 6.42 K/ul (4.8-10.8)
[2024-12-16 20:28] LABS: Alanine Aminotransferase 142.0 U/L (7-52); Albumin Globulin Ratio 1.1 (0.9-2); Alkaline Phosphatase 150.0 U/L (34-104); Anion Gap 32.0 (3-11); Bilirubin,Total 1.5 mg/dl (0.2-1.0); Blood Urea Nitrogen 10.0 mg/dl (6-23); Calcium 8.3 mg/dl (8.6-10.3); Carbon Dioxide 9.0 mmol/L (21-32); Chloride 93.0 mmol/L (98-107); Creatinine Clr Calc Pharmacy 42.5 ml/min; Globulin 3.6 gm/dl (2.5-4.0); Glucose 107.0 mg/dl (70-99(Fasting)); Magnesium 1.4 mg/dl (1.7-2.4); Potassium 3.2 mmol/L (3.5-5.1); Sodium 134.0 mmol/L (136-145); Total Protein 7.6 gm/dl (6.0-8.3)
[2024-12-16 20:36] LABS: INR 1.2 (0.9-1.1); Prothrombin Time 13.1 Seconds (9.0-12.0)
[2024-12-16] MEDS: FOLIC ACID 1 MG in SYRINGE 9.8 ML IV STA (20:39)
[2024-12-16] MEDS: THIAMINE HCL 500 MG in SODIUM CHLORIDE 0.9% 50 ML IV STA (20:40)
[2024-12-16] MEDS: SODIUM CHLORIDE 0.9% 1,000 ML IV ONE (20:40)
[2024-12-16] MEDS ORDERED: diazePAM 5 MG/ML 10ML VIAL IV PRN (20:40)
[2024-12-16] MEDS: PANTOprazole 40 MG in DEXTROSE 5% MINI-B 100 ML IV SCH (20:43)
[2024-12-16] MEDS: PANTOPRAZOLE BOLUS/DRIP IV STA (20:46)
[2024-12-16 20:52] LABS: Lipase 1472.0 U/L (11-82); Thyroid Stimulating Hormone 29.962 uIu/ml (0.300-4.500)
[2024-12-16] MEDS ORDERED: SODIUM CHLORIDE 0.9% 100 ML IV PRN (21:07)
[2024-12-16] MEDS: MAGNESIUM SULFATE / D5W 1 GM/100 ML BAG IV STA (21:08)
[2024-12-16] MEDS: LACTATED RINGER'S 1,000 ML IV ONE (21:09)
[2024-12-16] MEDS: OPTIRAY 320 100ml IV ONE (21:32)
--- NOTE | 2024-12-16 22:35 | XRay Report ---
Exam(s): XR CXR 1 VIEW EXAM: XR Chest, 1 View CLINICAL HISTORY: Reason for exam: dizziness. TECHNIQUE: Frontal view of the chest. COMPARISON: No relevant prior studies available. FINDINGS: Lungs: Unremarkable. No consolidation. Pleural space: Unremarkable. No pneumothorax. Heart: Unremarkable. No cardiomegaly. Mediastinum: Unremarkable. Normal mediastinal contour. Bones/joints: Unremarkable. No acute fracture. IMPRESSION: Normal chest x-ray. Electronically signed by: Julien Smith MD 12/16/24 22:34 PM
--- NOTE | 2024-12-16 22:38 | CT Scan Report ---
Exam(s): CT HEAD Without Contrast EXAM: CT Head Without Intravenous Contrast CLINICAL HISTORY: Reason for exam: trauma. TECHNIQUE: Axial computed tomography images of the head/brain without intravenous contrast. CTDI is 38.1 mGy and DLP is 624.41 mGy-cm. Automated exposure control was utilized for the study. A dose lowering technique was utilized adhering to the principles of ALARA. COMPARISON: No relevant prior studies available. FINDINGS: Brain: Chronic periventricular ischemic demyelination changes seen due to small vessel disease. No hemorrhage. Ventricles: Unremarkable. No ventriculomegaly. Bones/joints: Unremarkable. No acute fracture. Soft tissues: There is scalp hematoma seen over the right parietal bone. Sinuses: Unremarkable as visualized. No acute sinusitis. Mastoid air cells: Unremarkable as visualized. No mastoid effusion. IMPRESSION: No acute findings in the head/brain. Electronically signed by: Julien Smith MD 12/16/24 22:37 PM
[2024-12-16 22:40] LABS: Immature Granulocytes # (auto) 0.04 K/uL (0.01-0.20); Immature Granulocytes % (auto) 0.6 %; RBC Morphology Unremarkable
--- NOTE | 2024-12-16 22:47 | CT Scan Report ---
Exam(s): CT C SPINE EXAM: CT Cervical Spine Without Intravenous Contrast CLINICAL HISTORY: Reason for exam: trauma. TECHNIQUE: Axial computed tomography images of the cervical spine without intravenous contrast. CTDI is 24.21 mGy and DLP is 457.22 mGy-cm. Automated exposure control was utilized for the study. A dose lowering technique was utilized adhering to the principles of ALARA. COMPARISON: No relevant prior studies available. FINDINGS: Vertebrae: C3/4 grade 1 spondylolisthesis. Mild bilateral C3/4 neural foraminal narrowing identified. No acute fracture. Discs/spinal canal/neural foramina: Moderately advanced multilevel degenerative disc disease changes seen in the cervical spine. Soft tissues: Unremarkable. IMPRESSION: No acute fracture or dislocation Electronically signed by: Julien Smith MD 12/16/24 22:46 PM
--- NOTE | 2024-12-16 22:50 | CT Scan Report ---
Exam(s): CT ABDOMEN + PELVIS With Contrast IV Amt: 95ml EXAM: CT Abdomen and Pelvis With Intravenous Contrast CLINICAL HISTORY: Reason for exam: abn lft's/lipase. TECHNIQUE: Axial computed tomography images of the abdomen and pelvis with intravenous contrast. CTDI is 16.81 mGy and DLP is 895.82 mGy-cm. Automated exposure control was utilized for the study. A dose lowering technique was utilized adhering to the principles of ALARA. CONTRAST: Patient received 95ml of IV contrast COMPARISON: No relevant prior studies available. FINDINGS: Lung bases: Unremarkable. No mass. No consolidation. Mediastinum: Small hiatus hernia. ABDOMEN: Liver: Fatty liver. There is fatty infiltration of the liver. There is lobulation of the liver outline, suggestive of cirrhosis. Gallbladder and bile ducts: Unremarkable. No calcified stones. No ductal dilation. Pancreas: Unremarkable. No mass. No ductal dilation. Spleen: Unremarkable. No splenomegaly. Adrenals: Unremarkable. No mass. Kidneys and ureters: Unremarkable. No solid mass. No hydronephrosis. Stomach and bowel: There is mild colonic wall thickening more so on the right side. There is mild sigmoid colonic diverticulosis. No obstruction. PELVIS: Appendix: No findings to suggest acute appendicitis. Bladder: Unremarkable. No mass. Reproductive: Unremarkable as visualized. ABDOMEN and PELVIS: Intraperitoneal space: Unremarkable. No free air. No significant fluid collection. Bones/joints: No acute fracture. No dislocation. There is L5/S1 grade 1 spondylolisthesis with posterior spinal fusion repair of severe multilevel degenerative disc disease changes seen in the lumbar spine. Vasculature: Recanalization of the lumbrical vein is seen. No abdominal aortic aneurysm. Lymph nodes: Unremarkable. No enlarged lymph nodes. IMPRESSION: 1. Fatty liver and cirrhosis with portal hypertension 2. Diffuse colonic wall thickening which could be from portal colopathy Electronically signed by: Julien Smith MD 12/16/24 22:49 PM
[2024-12-16 23:20] LABS: Base Excess VBG -15.1 mEq/L; HCO3 VBG 9 mmol/L; Oxygen Saturation VBG < 60.0 %; PCO2 VBG 17 mmHg (38-50); PO2 VBG 35 mmHg; pH VBG 7.31 (7.36-7.41)
[2024-12-17 00:19] LABS: Anion Gap 28.0 (3-11); Blood Urea Nitrogen 9.0 mg/dl (6-23); Calcium 7.6 mg/dl (8.6-10.3); Carbon Dioxide 9.0 mmol/L (21-32); Chloride 96.0 mmol/L (98-107); Creatinine Clr Calc Pharmacy 50.7 ml/min; Glucose 97.0 mg/dl (70-99(Fasting)); Potassium 3.2 mmol/L (3.5-5.1); Sodium 133.0 mmol/L (136-145)
--- NOTE | 2024-12-17 00:41 | History & Physical Report ---
Date of Service December 17, 2024 Assessment & Plan (1) GI bleed: (2) Acute blood loss anemia: (3) Alcohol abuse: (4) CHI (closed head injury): (5) Hypothyroidism: Plan 59-year-old male with history of hypertension, hyperlipidemia, GERD, hypothyroidism, alcoholism presenting after an unwitnessed fall at home resulting in posterior head trauma. Patient with 2 days of diarrhea, Heme positive stools in the ER, anemia #GI bleed/acute blood loss anemiapatient is a poor historian. Does report 2 or more days of diarrhea. Upon arrival to the ER was found with what appeared to be bloody stool caked to his legs. Heme positive stool in the ER. Patient with normochromic/normocytic anemia with Hgb = 6.6, HCT = 20.4 of note, baseline hemoglobin is low seems to be 78. Possibly secondary to bone marrow suppression from chronic alcohol use, possible ongoing bleed. Patient with history of GERD. Does have fatty liver with cirrhosis and portal hypertension noted on CT of his abdomen. Admit to PCU Maintain n.p.o. status Maintain 2 large-bore IVs Transfuse 1 unit PRBCs Repeat hemoglobin after transfusionadditional PRBCs for ongoing bleed, symptomatic anemia, hemoglobin less than 7 Continue Protonix drip Continue octreotide drip GI consultation appreciated #Alcohol abusepatient does not clearly state how many drinks per day he consumes. Does report drinking rum, estimated approximately 11-1/2 drinks per day (based on purchasing 2 handles of liquor per week). Presently not showing any signs of alcohol withdrawal despite sinus tachycardia. Denies history of withdrawal, seizures or DTs. PAWSS score = 3. patient has received thiamine folic acid in the ER Continue AWSS with Ativan as needed - if patient is requiring large doses of Ativan will change to phenobarbital therapy per protocol Continue thiamine and folic acid daily Check UDS #Closed head injurypatient with unwitnessed ground-level fall in his home reporting striking his posterior head. Denies loss of consciousness. Denies current complaints consistent with concussion. CT of the head is unremarkable as is CT of the C-spine. Patient is not on any blood thinners or antiplatelet agents. Maintain fall precautions Neurochecks with GCS every 4 hours Check CK total, unknown downtime #Elevated lipase = 1472. Patient denies abdominal pain. No inflammation in or around the pancreas noted on CT of the abdomen Maintain n.p.o. status Aggressive IV fluidsLR 200 mL's per hour x 3 L ordered No pain at this time, will avoid opiates given patient's need for be nzodiazepines for alcohol withdrawal Zofran as needed for nausea #Hypothyroidismpatient with history of the same. Was previously on Synthroid 200 mcg p.o. daily. Likely is not taking his medications given his elevated TSH and decreased free T4 Will resume patient's home medication Synthroid 200 mcg p.o. daily before breakfast #Electrolyte abnormalitiespatient with low calcium, ionized = 0.99, hypomagnesemia with magnesium = 1.4, potassium = 3.2 Calcium gluconate 1 g IV x 2 bags ordered 20 cm x 3 g ordered Potassium chloride 60 mEq p.o. ordered Repeat labs in the morning History of Present Illness Chief Complaint: Upper GI bleed, Alcohol withdrawal, elevated lipase Primary Care Provider: NO PCP Alexei Adams is a 59-year-old male with history of hypertension, hypo thyroidism, GERD and alcohol use presenting with anemia. Patient provides history but is not clear on some of the details. Additional information obtained through discussion with the ER staff as well as triage notes. He reports tripping in his living room yesterday and hitting the back of his head on a slate fireplace. He denies loss of consciousness. He was able to get up and laid on the couch for an unknown amount of time. Patient was brought in by ambulance this evening. Unable to provide detailed history of when he fell. He was found to have a "dark jellylike stool down both legs, strong odor of urine and dried blood on face and chest". He did report 2 days of diarrhea as well as dizziness. Patient presently denies nausea, vomiting, abdominal pain, chest pain, cough, shortness of breath. Denies blurry vision, loss of vision, headache, neck pain, tinnitus. Patient with history of heavy alcohol use. Does not know how much alcohol he drinks per day. States that he drinks [employer] Ismael mishra. He buys handles (1.75 L) and drinks approximately 2 of these per week. if accurate, each handle = 40 drinks which = 80 drinks per week which = approximately 11.5 drinks per day. Patient denies drinking beer or wine. No use of benzodiazepines or other substances. He denies history of alcohol withdrawal, seizures or blackouts. He has been to rehab in the past but unfortunately continues to drink. His last drink was "a couple of days ago". At present he is denying irritability, agitation or confusion. No history of seizures. ER course: Heme POSITIVE stools per ER attending Normal saline x 1 L LR x 1 L bolus now at 250 mL/h 1 unit PRBCs currently infusing Thiamine 500 mg IV Folic acid 1 mg IV Protonix bolus and drip Octreotide bolus and drip Magnesium 1 g IV Allergies Allergy/AdvReac Type Severity Reaction Status Date / Time Sulfa (Sulfonamide Allergy Intermediate HIVES Verified 04/04/24 14:46 Antibiotics) MARGARET Inhibitors AdvReac Intermediate COUGH Verified 04/04/24 14:46 amlodipine AdvReac Intermediate FATIGUE Verified 04/04/24 14:46 clonidine AdvReac Intermediate HEADACHES Verified 04/04/24 14:46 varenicline [From Chantix] AdvReac Intermediate JITTERY/SHA Verified 04/04/24 14:46 KES Home Medications Medication Instructions Recorded Confirmed Type albuterol sulfate 90 mcg/actuation 0 puff inhalation UD PRN sob 10/17/23 12/17/24 History aerosol inhaler cyanocobalamin (vitamin B-12) 100 100 mcg PO QAM #30 tabs 02/03/24 04/04/24 Rx mcg tablet (Vitamin B-12) levothyroxine 200 mcg tablet 200 mcg PO DAILYBB #30 tabs 02/03/24 04/04/24 Rx (Synthroid) pantoprazole 40 mg tablet,delayed 40 mg PO QAM #30 tabs 02/03/24 04/04/24 Rx release hydroxyzine pamoate 25 mg capsule 25 mg PO Q6H PRN itching 03/21/24 04/04/24 History atorvastatin 40 mg tablet 40 mg PO DAILY 12/17/24 12/17/24 History escitalopram oxalate 20 mg tablet 20 mg PO DAILY 12/17/24 12/17/24 History valsartan 320 1 tab PO DAILY 12/17/24 12/17/24 History mg-hydrochlorothiazide 12.5 mg tablet Past Med/Surg History Problem List (Updated 12/17/24 @ 01:21 by Jennifer Carcamo DO) Acute blood loss anemia Alcohol abuse (Acute) GI bleed (Acute) Contusion of scalp (Acute) CHI (closed head injury) (Acute) Closed head injury without loss of consciousness Asthma exacerbation Hypokalemia (Acute) Hypomagnesemia (Acute) Right shoulder pain (Acute) EARLINE (acute kidney injury) (Acute) Noncompliance with medication regimen 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 Acute pancreatitis Sepsis Diarrhea (Acute) Abnormal CT of the head (Acute) Weakness (Acute) Hypomagnesemia (Acute) Anemia (Acute) Acute renal failure (ARF) (Acute) Hypomagnesemia Elevated LFTs Hyperlipidemia Acute alcoholic hepatitis (Acute) Benign localized prostatic hyperplasia with lower urinary tract symptoms (LUTS) Prediabetes Presumed- Hgb A1C 6.3 on 10/12/22 Encounter for pre-operative examination Renal insufficiency Dyspnea Left rotator cuff tear Spermatocele Abnormal CT lung screening Coronary artery calcification seen on CAT scan chest CT 03/2020 negative stress test 06/2021 Radial head fracture, closed Left-sided chest pain (Acute) Current smoker Adjustment disorder with depressed mood (Acute) Allergic rhinitis (Acute) Barretts esophagus (Acute) Chronic cough (Acute) Colon polyps (Acute) Hiatal hernia (Acute) Inhibited sexual excitement (Acute) Periodic limb movements of sleep (Acute) Small airways disease (Acute) prn inhaler for this > rare res inh use Asthma INHALER DAILY Hyperlipidemia (Chronic) Hypertension (Chronic) Medical History Tobacco abuse Anemia Alcohol abuse Obstructive sleep apnea no device Hypertension Alcohol withdrawal Hypothyroidism GERD (gastroesophageal reflux disease) UTI (urinary tract infection) Thrombocytopenia Acute dehydration Anxiety Hypothyroidism GERD (gastroesophageal reflux disease) Surgical History S/P wrist surgery R WRIST REPAIR OF TORN TENDON Hx of vasectomy History of colonoscopy History of esophagogastroduodenoscopy (EGD) History of appendectomy History of tooth extraction WISDOM TEETH History of tonsillectomy S/P LASIK surgery of both eyes History of lumbar spinal fusion Family History Father Alcohol abuse COPD (chronic obstructive pulmonary disease) Hypertension Reported family history of early sudden deaths Mother Hypertension Hyperlipidemia Brother Hypertension Sister Graves' disease Social History Smoking Status: Current every day smoker Tobacco Type: Cigarettes Age Started Using Tobacco: 17; packs per day: 1; Cigarettes Per Day: 1 PPD; Second Hand Exposure: No; Do You Dip or Chew Tobacco: No; Hx Alcohol Use: Yes Alcohol type: hard liquor Hx Substance Use: No Preferred Language: Vietnamese Communication Ability: Effective Visual Impairment: Limited Hearing Ability: Normal Impersonator Character Required: No Beliefs That Will Affect Care: None marital status: Current Living Situation: Alone Current Living Situation Comment: Live at home alone current occupational status: employed current occupation: [employer] Feels Safe at Home: Yes Childhood Exposure to Second-Hand Smoke: No caffeine: Yes Dental Care, Regularly: Yes Physical Activity Frequency: Does not Exercise Seatbelt Use: always Sunscreen Use: No Assistive Devices: None Review of Systems Review of Systems: All systems reviewed & are unremarkable except as noted in HPI & below Physical Exam Physical Exam: General: patient Nontoxic in appearance, able to answer questions appropriately and follow commands, no tremors Skin: warm, dry, intact, no rashes or lesions HEENT: contusion noted on posterior scalp with some dried blood, no active bleeding or visible laceration, PERRL, EOMI, anicteric sclera, conjunctiva without injection, external ear normal to inspection and nontender, nares patent, dry mucus membranes, dentition intact, no oropharyngeal lesions, neck supple, trachea midline, no LAD, no thyromegaly, no JVD Heart: +S1/S2, regular, tachycardic, no m/r/g Lungs: equal air entry bilaterally, no rales/rhonchi/wheezes Abd: +BS, soft, NT/ND, no masses/organomegaly/ascites Ext: warm, 2+ pulses in UE/LE bilaterally, no clubbing/cyanosis or edema Neuro: nonfocal, patient AA&O x 4, speech intact, no facial droop, moving all extremities on command with equal strength 5/5 Results & Data Results & Data Vital Signs (Past 12 Hours) Vital Signs Temp Pulse Pulse Resp BP BP Pulse Ox 12/17/24 00:32 37.0 C 103 H 20 124/63 99 12/17/24 00:00 37.0 C 105 H 18 125/72 99 12/16/24 23:40 36.8 C 105 H 18 124/89 97 12/16/24 23:20 104 H 12/16/24 23:10 36.8 C 103 H 18 141/73 H 100 12/16/24 23:00 36.8 C 103 H 18 141/73 H 98 12/16/24 22:55 36.9 C 107 H 26 H 133/72 100 12/16/24 22:38 36.9 C 105 H 20 141/83 H 100 12/16/24 22:22 110 H 18 130/74 100 12/16/24 21:44 121 H 20 122/68 100 12/16/24 21:04 113 H 20 139/75 100 12/16/24 19:26 112 H 12/16/24 19:15 37.2 C 108 H 16 130/80 99 12/16/24 19:15 37.2 C 108 H 16 130/80 99 12/16/24 19:15 37.2 C 108 H 16 130/80 98 O2 Del Method 12/17/24 00:32 12/17/24 00:00 Room Air 12/16/24 23:40 12/16/24 23:20 12/16/24 23:10 12/16/24 23:00 Room Air 12/16/24 22:55 12/16/24 22:38 12/16/24 22:22 Room Air 12/16/24 21:44 Room Air 12/16/24 21:04 Room Air 12/16/24 19:26 12/16/24 19:15 Room Air 12/16/24 19:15 Room Air 12/16/24 19:15 Room Air Laboratory Results Laboratory Results WBC 6.42 K/ul (4.8-10.8) 12/16/24 19:35 RBC 2.35 M/uL (4.70-6.10) L 12/16/24 19:35 Hgb 6.6 g/dl (14.0-18.0) L* 12/16/24 19:35 POC Hgb 7.8 g/dl (14.0-18.0) L 12/16/24 19:41 Hct 20.4 % (42.0-52.0) L* 12/16/24 19:35 POC Hct 23 % (42-52) L 12/16/24 19:41 MCV 86.8 fL (80.0-100.0) 12/16/24 19:35 MCH 28.1 pg (25.0-34.0) 12/16/24 19:35 MCHC 32.4 g/dL (32.0-36.0) 12/16/24 19:35 RDW Std Deviation 61.1 fL (36.4-46.3) H 12/16/24 19:35 RDW Coeff of Joshua 19.8 % (11.5-14.5) H 12/16/24 19:35 Plt Count 57 K/uL (130-400) L 12/16/24 19:35 MPV 11.0 fL (9.4-12.4) 12/16/24 19:35 Immature Gran % (Auto) 0.6 % 12/16/24 19:35 Neut % (Auto) 74.1 % 12/16/24 19:35 Lymph % (Auto) 9.8 % 12/16/24 19:35 [place] % (Auto) 15.3 % 12/16/24 19:35 Eos % (Auto) 0.0 % 12/16/24 19:35 Baso % (Auto) 0.2 % 12/16/24 19:35 Neut # (Auto) 4.76 K/uL (1.40-6.50) 12/16/24 19:35 Lymph # (Auto) 0.63 K/uL (1.20-3.40) L 12/16/24 19:35 [place] # (Auto) 0.98 K/uL (0.11-0.59) H 12/16/24 19:35 Eos # (Auto) 0.00 K/uL (0.00-0.50) 12/16/24 19:35 Baso # (Auto) 0.01 K/uL (0.00-0.20) 12/16/24 19:35 Immature Gran # (Auto) 0.04 K/uL (0.01-0.20) 12/16/24 19:35 Absolute Nucleated RBC 0.03 K/uL (0.00-0.12) 12/16/24 19:35 Nucleated RBC % (auto) 0.5 % 12/16/24 19:35 RBC Morphology Unremarkable 12/16/24 19:35 PT 13.1 Seconds (9.0-12.0) H 12/16/24 19:35 INR 1.2 (0.9-1.1) H 12/16/24 19:35 VBG pH 7.31 (7.36-7.41) L 12/16/24 22:32 VBG pCO2 17 mmHg (38-50) L 12/16/24 22:32 VBG pO2 35 mmHg 12/16/24 22:32 VBG HCO3 9 mmol/L 12/16/24 22:32 VBG O2 Saturation < 60.0 % 12/16/24 22:32 VBG Base Excess -15.1 mEq/L 12/16/24 22:32 POC Sodium 133 mmol/L (135-144) L 12/16/24 19:41 Sodium 133 mmol/L (136-145) L 12/16/24 23:25 POC Potassium 3.1 mmol/L (3.3-5.0) L 12/16/24 19:41 Potassium 3.2 mmol/L (3.5-5.1) L 12/16/24 23:25 POC Chloride 98 mmol/L (101-112) L 12/16/24 19:41 Chloride 96 mmol/L (98-107) L 12/16/24 23:25 Carbon Dioxide 9 mmol/L (21-32) L* 12/16/24 23:25 POC Total CO2 10 mmol/L (24-31) L 12/16/24 19:41 Anion Gap 28 (3-11) H 12/16/24 23:25 POC Anion Gap 29.0 mmol/L (16-25) H 12/16/24 19:41 POC BUN 8 mg/dl (7-18) 12/16/24 19:41 BUN 9 mg/dl (6-23) 12/16/24 23:25 Creatinine 1.45 mg/dl (0.6-1.4) H 12/16/24 23:25 POC Creatinine 2.0 mg/dl (0.6-1.3) H 12/16/24 19:41 Est Cr Clr Drug Dosing 50.7 ml/min 12/16/24 23:25 eGFR 55.17 12/16/24 23:25 BUN/Creatinine Ratio 6.2 (10-20) L 12/16/24 23:25 Glucose 97 mg/dl (70-99(Fasting)) 12/16/24 23:25 POC Glucose (other) 107 mg/dl (70-99) H 12/16/24 19:41 Calcium 7.6 mg/dl (8.6-10.3) L 12/16/24 23:25 POC Ioniz Calcium Yolanda 0.99 mmol/l (1.12-1.32) L 12/16/24 19:41 Magnesium 1.4 mg/dl (1.7-2.4) L 12/16/24 19:35 Total Bilirubin 1.5 mg/dl (0.2-1.0) H 12/16/24 19:35 AST 433 U/L (13-39) H 12/16/24 19:35 ALT 142 U/L (7-52) H 12/16/24 19:35 Alkaline Phosphatase 150 U/L (34-104) H 12/16/24 19:35 Troponin I High Sens 16.9 pg/ml (0-20) 12/16/24 19:35 Total Protein 7.6 gm/dl (6.0-8.3) 12/16/24 19:35 Albumin 4.0 gm/dl (3.4-5.0) 12/16/24 19:35 Globulin 3.6 gm/dl (2.5-4.0) 12/16/24 19:35 Albumin/Globulin Ratio 1.1 (0.9-2) 12/16/24 19:35 Lipase 1472 U/L (11-82) H 12/16/24 19:35 TSH 29.962 uIu/ml (0.300-4.500) H 12/16/24 19:35 Free T4 0.55 ng/dl (0.61-1.60) L 12/16/24 19:35 Ethyl Alcohol mg/dL 65.1 mg/dl (<10.0) H 12/16/24 19:35 Blood Type O Positive 12/16/24 19:35 Antibody Screen NEGATIVE 12/16/24 19:35 Crossmatch See Detail 12/16/24 19:[address] 12/16/24 19:51 Exam(s): CT C SPINE EXAM: CT Cervical Spine Without Intravenous Contrast CLINICAL HISTORY: Reason for exam: trauma. TECHNIQUE: Axial computed tomography images of the cervical spine without intravenous contrast. CTDI is 24.21 mGy and DLP is 457.22 mGy-cm. Automated exposure control was utilized for the study. A dose lowering technique was utilized adhering to the principles of ALARA. COMPARISON: No relevant prior studies available. FINDINGS: Vertebrae: C3/4 grade 1 spondylolisthesis. Mild bilateral C3/4 neural foraminal narrowing identified. No acute fracture. Discs/spinal canal/neural foramina: Moderately advanced multilevel degenerative disc disease changes seen in the cervical spine. Soft tissues: Unremarkable. IMPRESSION: No acute fracture or dislocation Electronically signed by: Julien Smith MD 12/16/24 22:46 PM Chest X-Ray 12/16/24 19:51 Exam(s): XR CXR 1 VIEW EXAM: XR Chest, 1 View CLINICAL HISTORY: Reason for exam: dizziness. TECHNIQUE: Frontal view of the chest. COMPARISON: No relevant prior studies available. FINDINGS: Lungs: Unremarkable. No consolidation. Pleural space: Unremarkable. No pneumothorax. Heart: Unremarkable. No cardiomegaly. Mediastinum: Unremarkable. Normal mediastinal contour. Bones/joints: Unremarkable. No acute fracture. IMPRESSION: Normal chest x-ray. Electronically signed by: Julien Smith MD 12/16/24 22:[address] 12/16/24 19:51 Exam(s): CT HEAD Without Contrast EXAM: CT Head Without Intravenous Contrast CLINICAL HISTORY: Reason for exam: trauma. TECHNIQUE: Axial computed tomography images of the head/brain without intravenous contrast. CTDI is 38.1 mGy and DLP is 624.41 mGy-cm. Automated exposure control was utilized for the study. A dose lowering technique was utilized adhering to the principles of ALARA. COMPARISON: No relevant prior studies available. FINDINGS: Brain: Chronic periventricular ischemic demyelination changes seen due to small vessel disease. No hemorrhage. Ventricles: Unremarkable. No ventriculomegaly. Bones/joints: Unremarkable. No acute fracture. Soft tissues: There is scalp hematoma seen over the right parietal bone. Sinuses: Unremarkable as visualized. No acute sinusitis. Mastoid air cells: Unremarkable as visualized. No mastoid effusion. IMPRESSION: No acute findings in the head/brain. Electronically signed by: Julien Smith MD 12/16/24 22:37 PM Abdomen/Pelvis CT 12/16/24 20:55 Exam(s): CT ABDOMEN + PELVIS With Contrast IV Amt: 95ml EXAM: CT Abdomen and Pelvis With Intravenous Contrast CLINICAL HISTORY: Reason for exam: abn lft's/lipase. TECHNIQUE: Axial computed tomography images of the abdomen and pelvis with intravenous contrast. CTDI is 16.81 mGy and DLP is 895.82 mGy-cm. Automated exposure control was utilized for the study. A dose lowering technique was utilized adhering to the principles of ALARA. CONTRAST: Patient received 95ml of IV contrast COMPARISON: No relevant prior studies available. FINDINGS: Lung bases: Unremarkable. No mass. No consolidation. Mediastinum: Small hiatus hernia. ABDOMEN: Liver: Fatty liver. There is fatty infiltration of the liver. There is lobulation of the liver outline, suggestive of cirrhosis. Gallbladder and bile ducts: Unremarkable. No calcified stones. No ductal dilation. Pancreas: Unremarkable. No mass. No ductal dilation. Spleen: Unremarkable. No splenomegaly. Adrenals: Unremarkable. No mass. Kidneys and ureters: Unremarkable. No solid mass. No hydronephrosis. Stomach and bowel: There is mild colonic wall thickening more so on the right side. There is mild sigmoid colonic diverticulosis. No obstruction. PELVIS: Appendix: No findings to suggest acute appendicitis. Bladder: Unremarkable. No mass. Reproductive: Unremarkable as visualized. ABDOMEN and PELVIS: Intraperitoneal space: Unremarkable. No free air. No significant fluid collection. Bones/joints: No acute fracture. No dislocation. There is L5/S1 grade 1 spondylolisthesis with posterior spinal fusion repair of severe multilevel degenerative disc disease changes seen in the lumbar spine. Vasculature: Recanalization of the lumbrical vein is seen. No abdominal aortic aneurysm. Lymph nodes: Unremarkable. No enlarged lymph nodes. IMPRESSION: 1. Fatty liver and cirrhosis with portal hypertension 2. Diffuse colonic wall thickening which could be from portal colopathy Electronically signed by: Julien Smith MD 12/16/24 22:49 PM PG Care Time/CCT Total # of Minutes Spent Total Time Spent with Patient: Total time spent is greater than 50% in coordination of care (as documented) at patient's floor/unit and/or counseling patient: Coding Level of Care Code 54323 INT INP/OBS CARE 3/75MIN Diagnoses GI bleed K92.2 Acute blood loss anemia D62 Alcohol abuse F10.10 CHI (closed head injury) S09.90XA Hypothyroidism E03.9
[2024-12-17] MEDS: LACTATED RINGER'S 1,000 ML IV SCH ×2 (00:43→03:41)
[2024-12-17] MEDS ORDERED: Ativan IV Alcohol Withdrawal--Active Protocol IV PRN (00:50)
[2024-12-17] MEDS ORDERED: ONDANSETRON INJ 2 MG/ML 2 ML VIAL IV PRN (00:50)
[2024-12-17] MEDS ORDERED: ACETAMINOPHEN 325 MG TAB PO PRN (00:50)
[2024-12-17] MEDS: OCTREOTIDE ACETATE 50 MCG in SYRINGE 9.5 ML IV STA (01:06)
[2024-12-17] MEDS: OCTREOTIDE ACETATE 500 MCG in SODIUM CHLORIDE 0.9% 100 ML IV SCH (01:08)
[2024-12-17 03:26] LABS: Hematocrit (blood only) 21.5 % (42.0-52.0); Hemoglobin 6.9 g/dl (14.0-18.0); Mean Corpuscular Hemoglobin 28.0 pg (25.0-34.0); Mean Corpuscular Volume 87.4 fL (80.0-100.0); Platelet Count 32 K/uL (130-400); RDW Standard Deviation 61.1 fL (36.4-46.3); Red Blood Count 2.46 M/uL (4.70-6.10); White Blood Count 4.56 K/ul (4.8-10.8)
[2024-12-17] MEDS ORDERED: SODIUM CHLORIDE 0.9% 100 ML IV PRN ×3 (03:26→07:45)
[2024-12-17 03:34] LABS: Alanine Aminotransferase 178.0 U/L (7-52); Alkaline Phosphatase 134.0 U/L (34-104); Anion Gap 22.0 (3-11); Bilirubin,Total 1.8 mg/dl (0.2-1.0); Blood Urea Nitrogen 10.0 mg/dl (6-23); Calcium 7.8 mg/dl (8.6-10.3); Carbon Dioxide 14.0 mmol/L (21-32); Chloride 97.0 mmol/L (98-107); Creatine Kinase 110.0 U/L (30-223); Creatinine Clr Calc Pharmacy 51.4 ml/min; Glucose 100.0 mg/dl (70-99(Fasting)); Magnesium 1.5 mg/dl (1.7-2.4); Potassium 3.4 mmol/L (3.5-5.1); Sodium 133.0 mmol/L (136-145); Total Protein 6.7 gm/dl (6.0-8.3)
[2024-12-17] MEDS: STAT IV/IM STA (03:40)
[2024-12-17] MEDS: MAGNESIUM SULFATE / D5W 1 GM/100 ML BAG IV SCH ×2 (03:41→09:43)
[2024-12-17] MEDS: CALCIUM GLUCONATE 1,000 MG/60 ML BAG IV SCH (04:25)
[2024-12-17] MEDS: POTASSIUM CHLORIDE CRTAB 20 MEQ TABCR PO STA (04:25)
[2024-12-17] MEDS: LEVOTHYROXINE SODIUM 200 MCG TABLET PO SCH (05:30)
[2024-12-17] MEDS ORDERED: POTASSIUM PHOS 3 MMOL/1 ML INFUSION IV STA (07:00)
[2024-12-17] MEDS: POTASSIUM PHOSPHATE 15 MMOL in SODIUM CHLORIDE 0.9% 250 ML IV ONE (09:39)
[2024-12-17] MEDS: THIAMINE HCL 100 MG in SYRINGE 9 ML IV SCH (09:41)
[2024-12-17] MEDS: FOLIC ACID 1 MG in SYRINGE 9.8 ML IV SCH (09:41)
[2024-12-17] MEDS: NICOTINE 14 MG/24 HR PATCH TD SCH (09:44)
[2024-12-17] MEDS: ESCITALOPRAM OXALATE 20 MG TAB PO SCH (09:44)
--- NOTE | 2024-12-17 10:21 | Gastrointestinal Consultation ---
Date of Consultation December 17, 2024 Assessment & Plan (1) Acute blood loss anemia: -Patient currently receiving 3rd unit PRBCs and awaiting repeat H/H -Continue to monitor H/H -Continue IV Protonix gtt -Keep NPO and proceed with EGD today as long as he continues to have no signs of withdrawal and is deemed appropriate by anesthesia. (2) Cirrhosis: (3) Elevated LFTs: Plan As for liver abnormalities, this appears to be a new diagnosis of cirrhosis with a MELD of 17. He will need outpatient hepatology evaluation, but for now will obtain infectious hepatitis and autoimmune liver serologies to rule out overlapping features other than known alcohol abuse. No indication for corticosteroids at the present time. Continue with alcohol withdrawal protocol. When taking po, limit sodium to 2 gm daily. Continue folate/thiamine supplementation. Would ask that case management discuss rehab options for alcohol cessation with the patient. Continue to monitor LFTs. Supervising Physician Co-Signing Physician Notes I saw and examined this patient with our nurse practitioner and agree with her assessment and plan. Patient presents with likely upper GI bleed in the setting of known alcoholism and cirrhosis. Differential diagnosis includes esophageal varices, portal gastropathy, peptic ulcer disease and alcoholic gastritis. Medically superimposed alcoholic hepatitis as well with abnormal liver enzymes. Endoscopy approximately year ago did not show any esophageal varices. Continue to transfuse IV PPI and octreotide. Recommend prophylactic antibiotics as well. Will proceed with urgent endoscopy. History of Present Illness Reason for Consultation: UGI bleed Attending Physician: Italo Polanco MD History of Present Illness Patient is a 59 yo male with PMH of fatty liver disease, Hunter's Esophagus, asthma, HLD, HTN, & alcoholism who presented to the ED after sustaining a fall and hitting his head. Per documentation, it appears that he was covered in dark stools. H/H currently 6.9/21.5. He has a history of hepatic steatosis noted as recently as November [address] scan this admission noted cirrhosis & portal hypertension. He denies being told he has cirrhosis previously. He has given conflicting answers regarding his alcohol consumption, initially noting consumption of 2 handles of rum per week, but tells me this morning he only has 2 drinks per week (small glass). MCV is within normal limits. Platelet count 32,000. His H/H is 6.9/21.5. He has received 2 units of PRBCs since that time and is about to receive his 3rd unit at the time of my evaluation. He denies his tory of known varices. Last EGD in 2023 showed esophageal sneha, esophageal stricture, & gastritis. Colonoscopy in November 2023 with fair prep and 5 polyps. From a liver standpoint, His AST is 608, ALT 178, T bili 1.8, INR 1.2. Platelets 32,000. CT without biliary findings. MELD 17.No jaundice. Patient denies abdominal pain, heartburn, reflux, or noticing melena or hematochezia himself at home. No current signs of alcohol withdrawal. DF 5. Allergies Allergy/AdvReac Type Severity Reaction Status Date / Time Sulfa (Sulfonamide Allergy Intermediate HIVES Verified 04/04/24 14:46 Antibiotics) MARGARET Inhibitors AdvReac Intermediate COUGH Verified 04/04/24 14:46 amlodipine AdvReac Intermediate FATIGUE Verified 04/04/24 14:46 clonidine AdvReac Intermediate HEADACHES Verified 04/04/24 14:46 [email or web address] [From Chantix] AdvReac Intermediate JITTERY/SHA Verified 04/04/24 14:46 KES Home Medications Medication Instructions Recorded Confirmed Type albuterol sulfate 90 mcg/actuation 0 puff inhalation UD PRN sob 10/17/23 12/17/24 History aerosol inhaler cyanocobalamin (vitamin B-12) 100 100 mcg PO QAM #30 tabs 02/03/24 04/04/24 Rx mcg tablet (Vitamin B-12) levothyroxine 200 mcg tablet 200 mcg PO DAILYBB #30 tabs 02/03/24 04/04/24 Rx (Synthroid) pantoprazole 40 mg tablet,delayed 40 mg PO QAM #30 tabs 02/03/24 04/04/24 Rx release hydroxyzine pamoate 25 mg capsule 25 mg PO Q6H PRN itching 03/21/24 04/04/24 History atorvastatin 40 mg tablet 40 mg PO DAILY 12/17/24 12/17/24 History escitalopram oxalate 20 mg tablet 20 mg PO DAILY 12/17/24 12/17/24 History valsartan 320 1 tab PO DAILY 12/17/24 12/17/24 History mg-hydrochlorothiazide 12.5 mg tablet Patient History Medical History Tobacco abuse Anemia Alcohol abuse Obstructive sleep apnea no device Hypertension Alcohol withdrawal Hypothyroidism GERD (gastroesophageal reflux disease) UTI (urinary tract infection) Thrombocytopenia Acute dehydration Anxiety Hypothyroidism GERD (gastroesophageal reflux disease) Surgical History S/P wrist surgery R WRIST REPAIR OF TORN TENDON Hx of vasectomy History of colonoscopy History of esophagogastroduodenoscopy (EGD) History of appendectomy History of tooth extraction WISDOM TEETH History of tonsillectomy S/P LASIK surgery of both eyes History of lumbar spinal fusion Family History Father Alcohol abuse COPD (chronic obstructive pulmonary disease) Hypertension Reported family history of early sudden deaths Mother Hypertension Hyperlipidemia Brother Hypertension Sister Graves' disease Social History Smoking Status: Heavy tobacco smoker Tobacco Type: Cigarettes Age Started Using Tobacco: 17; packs per day: 1; Cigarettes Per Day: 1 PPD; Second Hand Exposure: No; Do You Dip or Chew Tobacco: No; Tobacco Cessation Education Requested by Patient: No Hx Alcohol Use: Yes Alcohol type: hard liquor Hx Substance Use: No Preferred Language: Mongolian Communication Ability: Effective Visual Impairment: Limited Hearing Ability: Normal 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 Beliefs That Will Affect Care: None marital status: Current Living Situation: Alone Current Living Situation Comment: Live at home alone current occupational status: employed current occupation: [employer]ika [employer] Other Information That Helps Us Care for You: No Feels Safe at Home: Yes Safety Concerns: Feels Safe At This Time Childhood Exposure to Second-Hand Smoke: No caffeine: Yes Dental Care, Regularly: Yes Physical Activity Frequency: Does not Exercise Seatbelt Use: always Sunscreen Use: No Assistive Devices: None Review of Systems Constitutional: no fever and no chills Respiratory: no cough and no dyspnea Gastrointestinal: + problem reported (staff reporting dark stool on patient when he presented); no abdominal pain, no heartburn, no coffee ground emesis, no change in bowel habits and no melena Physical Exam Constitutional: well developed Respiratory: normal respiratory effort Cardiovascular: Rate/Rhythm: regular rate Gastrointestinal (Abdomen): normal bowel sounds, soft, nontender, no hepatosplenomegaly Psychiatric: Orientation: alert and oriented x 3 Results & Data Vital Signs (Past 12 Hours) Vital Signs Temp Pulse Pulse Resp BP BP Pulse Ox 12/17/24 08:35 36.9 C 78 25 H 118/68 98 12/17/24 06:46 36.9 C 94 H 16 135/78 99 12/17/24 06:20 36.5 C 95 H 16 129/72 98 12/17/24 05:50 37.2 C 90 16 141/77 H 12/17/24 05:20 37.2 C 93 H 16 121/70 94 12/17/24 05:10 12/17/24 05:05 37.3 C 95 H 16 118/85 98 12/17/24 04:50 37.2 C 96 H 20 121/69 97 12/17/24 04:35 37 C 90 20 137/80 99 12/17/24 04:20 37.1 C 92 H 18 129/78 97 12/17/24 03:40 36.7 C 96 H 22 109/71 98 12/17/24 03:40 36.7 C 98 H 22 109/71 96 12/17/24 03:22 102 H 12/17/24 02:00 36.9 C 96 H 28 H 112/66 98 12/17/24 02:00 36.9 C 98 H 28 H 112/66 99 12/17/24 01:26 96 H 12/17/24 01:00 95 H 20 131/67 99 12/17/24 00:50 101 H 20 131/67 99 12/17/24 00:50 99 H 20 98 12/17/24 00:32 37.0 C 103 H 20 124/63 99 12/17/24 00:00 37.0 C 105 H 18 125/72 99 12/16/24 23:40 36.8 C 105 H 18 124/89 97 12/16/24 23:20 104 H 12/16/24 23:10 36.8 C 103 H 18 141/73 H 100 12/16/24 23:00 36.8 C 103 H 18 141/73 H 98 12/16/24 22:55 36.9 C 107 H 26 H 133/72 100 12/16/24 22:38 36.9 C 105 H 20 141/83 H 100 12/16/24 22:22 110 H 18 130/74 100 O2 Del Method 12/17/24 08:35 Room Air 12/17/24 06:46 12/17/24 06:20 12/17/24 05:50 12/17/24 05:20 12/17/24 05:10 Room Air 12/17/24 05:05 12/17/24 04:50 12/17/24 04:35 12/17/24 04:20 12/17/24 03:40 12/17/24 03:40 Room Air 12/17/24 03:22 12/17/24 02:00 Room Air 12/17/24 02:00 Room Air 12/17/24 01:26 12/17/24 01:00 Room Air 12/17/24 00:50 Room Air 12/17/24 00:50 Room Air 12/17/24 00:32 12/17/24 00:00 Room Air 12/16/24 23:40 12/16/24 23:20 12/16/24 23:10 12/16/24 23:00 Room Air 12/16/24 22:55 12/16/24 22:38 12/16/24 22:22 Room Air PG Care Time/CCT Total # of Minutes Spent Total Time Spent with Patient: Total time spent is greater than 50% in coordination of care (as documented) at patient's floor/unit and/or counseling patient: Coding Level of Care Code 78048 IN/OBS CONSULT LVL 4,60M Diagnoses Acute blood loss anemia D62 Cirrhosis K74.60 Elevated LFTs R79.89
[2024-12-17 11:39] LABS: Appearance Urine Cloudy (Clear); Bacteria Urine Automated None Seen (None Seen); Epithelial Cell Urine Auto 0-2 /hpf (0-2); Glucose Urine UA Negative (Negative); RBC Urine Automated 0-2 /hpf (0-2); WBC Urine Automated 0-5 /hpf (0-5)
[2024-12-17 12:04] LABS: Amphetamines+Metham, Urine Neg (Neg); MDMA (Ecstacy), Urine Neg (Neg); Marijuana, Urine Neg (Neg)
[2024-12-17 13:50] LABS: Hematocrit (blood only) 28.5 % (42.0-52.0); Hemoglobin 9.6 g/dl (14.0-18.0); Mean Corpuscular Hemoglobin 28.7 pg (25.0-34.0); Mean Corpuscular Volume 85.1 fL (80.0-100.0); Platelet Count 36 K/uL (130-400); RDW Standard Deviation 54.1 fL (36.4-46.3); Red Blood Count 3.35 M/uL (4.70-6.10); White Blood Count 4.72 K/ul (4.8-10.8)
[2024-12-17 14:06] LABS: Hep B Surface Ag with confirm Negative (Negative)
[2024-12-17 14:12] LABS: Hep C Ab Rflx HepCQuant RNA Negative (Negative)
[2024-12-17] MEDS: SODIUM CHLORIDE 0.9% 500 ML IV SCH (14:23)
[2024-12-17 14:24] LABS: Immature Granulocytes # (auto) 0.03 K/uL (0.01-0.20); Immature Granulocytes % (auto) 0.6 %; Ovalocytes 1+; Polychromasia 1+; Stomatocytes 1+
--- NOTE | 2024-12-17 14:32 | Anesthesiology Consultation ---
Date of Service December 17, 2024 Assessment & Plan ASA ASA4 Proposed Anesthesia Anesthesia Type: MAC Risk / Benefits Reviewed With: PT / POA / Parent / Guardian, Accepts Plan and Informed Consent Obtained History Surgery Operation Date: 12/17/24 17:55 Proposed Procedures p Esophagogastroduodenoscopy Dr. Jasmina Freedman MD Height/Weight Height: 5 ft 7 in Weight: 71.8 kg Allergies Allergy/AdvReac Type Severity Reaction Status Date / Time Sulfa (Sulfonamide Allergy Intermediate HIVES Verified 12/17/24 14:12 Antibiotics) MARGARET Inhibitors AdvReac Intermediate COUGH Verified 12/17/24 14:12 amlodipine AdvReac Intermediate FATIGUE Verified 12/17/24 14:12 clonidine AdvReac Intermediate HEADACHES Verified 12/17/24 14:12 [email or web address] [From Chantix] AdvReac Intermediate JITTERY/SHA Verified 12/17/24 14:12 KES Medications Home Medications Medication Instructions Recorded Confirmed Last Taken albuterol sulfate 90 mcg/actuation 0 puff inhalation UD PRN sob 10/17/23 12/17/24 10/16/23 aerosol inhaler cyanocobalamin (vitamin B-12) 100 100 mcg PO QAM #30 tabs 02/03/24 04/04/24 Unknown mcg tablet (Vitamin B-12) levothyroxine 200 mcg tablet 200 mcg PO DAILYBB #30 tabs 02/03/24 04/04/24 Unknown (Synthroid) pantoprazole 40 mg tablet,delayed 40 mg PO QAM #30 tabs 02/03/24 04/04/24 Unknown release hydroxyzine pamoate 25 mg capsule 25 mg PO Q6H PRN itching 03/21/24 04/04/24 Unknown atorvastatin 40 mg tablet 40 mg PO DAILY 12/17/24 12/17/24 Unknown escitalopram oxalate 20 mg tablet 20 mg PO DAILY 12/17/24 12/17/24 Unknown valsartan 320 1 tab PO DAILY 12/17/24 12/17/24 Unknown mg-hydrochlorothiazide 12.5 mg tablet Active Medications Generic Name Dose Route Start Last Admin Trade Name Freq PRN Reason Stop Dose Admin Escitalopram Oxalate 20 mg 12/17/24 09:00 12/17/24 09:44 Escitalopram Oxalate 20 Mg Tab PO 01/16/25 08:59 20 mg DAILY NAEEM Administration Pantoprazole Sodium 40 mg/ 100 mls @ 20 mls/hr 12/16/24 20:15 12/17/24 12:45 Dextrose IV 01/15/25 20:14 8 mg/hr Q5H NAEEM 20 mls/hr Administration 8 MG/HR Octreotide Acetate 500 mcg/ 100.5 mls @ 10.05 mls/hr 12/16/24 23:45 12/17/24 09:51 Sodium Chloride IV 01/15/25 23:44 50 mcg/hr .Q10H NAEEM 10.1 mls/hr Administration 50 MCG/HR Lactated Ringer's 1,000 mls @ 100 mls/hr 12/17/24 00:50 12/17/24 09:40 Lr IV 12/17/24 23:50 200 mls/hr .Q10H NAEEM Administration Thiamine HCl 100 mg/ Syringe 10 mls @ 2 mls/min 12/17/24 09:00 12/17/24 09:41 IV 01/16/25 08:59 2 mls/min QAM NAEEM Administration Folic Acid 1 mg/ Syringe 10 mls @ 5 mls/min 12/17/24 09:00 12/17/24 09:41 IV 01/16/25 08:59 5 mls/min QAM NAEEM Administration Sodium Chloride 500 mls @ 15 mls/hr 12/17/24 14:30 12/17/24 14:23 Nss IV 12/18/24 14:29 15 mls/hr .Q24H NAEEM Administration Levothyroxine Sodium 200 mcg 12/17/24 06:30 12/17/24 05:30 Levothyroxine Sodium 200 Mcg Tablet PO 01/16/25 06:29 200 mcg DAILYBB NAEEM Administration Nicotine 1 patch 12/17/24 09:00 12/17/24 09:44 Nicotine 14 Mg/24 Hr Patch TD 01/16/25 08:59 1 patch QAM NAEEM Administration NPO Date Last Intake of Fluids: 12/17/24 Time Last Intake of Fluids: 00:00 Date Last Intake of Solids: 12/17/24 Time Last Intake of Solids: 00:00 Past Medical History Medical History Tobacco abuse Anemia Alcohol abuse Obstructive sleep apnea no device Hypertension Alcohol withdrawal Hypothyroidism GERD (gastroesophageal reflux disease) UTI (urinary tract infection) Thrombocytopenia Acute dehydration Anxiety Hypothyroidism GERD (gastroesophageal reflux disease) Exercise / Class Metabolic Activity IV < 2 Limit ADL/Bedbound Past Family History Family History Father Alcohol abuse COPD (chronic obstructive pulmonary disease) Hypertension Reported family history of early sudden deaths Mother Hypertension Hyperlipidemia Brother Hypertension Sister Graves' disease Past Surgical History Surgical History S/P wrist surgery R WRIST REPAIR OF TORN TENDON Hx of vasectomy History of colonoscopy History of esophagogastroduodenoscopy (EGD) History of appendectomy History of tooth extraction WISDOM TEETH History of tonsillectomy S/P LASIK surgery of both eyes History of lumbar spinal fusion Past Anesthesia History No Hx of Anesthesia Complications and No Family Hx of Anesthesia Complications History of PONV No Hx of PONV and No Hx of Motion Sickness Social History Smoking Status: Heavy tobacco smoker tobacco type: cigarettes Smoking cigarettes per day: 1 PPD Do You Dip or Chew Tobacco: No Hx Alcohol Use: Yes Alcohol type: hard liquor alcohol intake frequency: 3 or more drinks per day Hx Substance Use: No substance use type: does not use Substance Use Type Other:: medical card very occasional Physical Exam Vital Signs Last Vital Signs Temp 36.5 C 12/17/24 14:13 Pulse 77 12/17/24 14:13 Resp 18 12/17/24 14:13 BP 134/80 12/17/24 14:13 Pulse Ox 97 12/17/24 14:13 O2 Del Method Room Air 12/17/24 14:21 Constitutional no acute distress ENMT Mouth: + poor dentition; no TMJ abnormality Thyromental Distance: > or= 3.5 Finger Breadths Mallampati Class: III Neck + limited neck extension Respiratory normal respiratory effort Auscultation: lungs clear to auscultation bilaterally Musculoskeletal Spine: + limited cervical ROM Psychiatric Orientation: alert and oriented x 3 Testing Laboratory Results 12/17/24 13:06 12/17/24 02:53 PT 13.1 Seconds (9.0-12.0) H 12/16/24 19:35 INR 1.2 (0.9-1.1) H 12/16/24 19:35 Urine Color Yellow 12/17/24 11:20 Urine Appearance Cloudy (Clear) A 12/17/24 11:20 Urine pH 6.5 (4.5-7.5) 12/17/24 11:20 Ur Specific [place] 1.025 (1.000-1.030) 12/17/24 11:20 Urine Protein 2+ (Negative) H 12/17/24 11:20 Urine Glucose (UA) Negative (Negative) 12/17/24 11:20 Urine Ketones 2+ (Negative) H 12/17/24 11:20 Urine Nitrite Negative (Negative) 12/17/24 11:20 Ur Leukocyte Esterase Negative (Negative) 12/17/24 11:20 Urine WBC (Auto) 0-5 /hpf (0-5) 12/17/24 11:20 Urine RBC (Auto) 0-2 /hpf (0-2) 12/17/24 11:20 U Hyaline Cast (Auto) 11-20 /lpf (0-2) H 12/17/24 11:20 U Epithel Cells (Auto) 0-2 /hpf (0-2) 12/17/24 11:20 Urine Bacteria (Auto) None Seen (None Seen) 12/17/24 11:20 Blood Type O Positive 12/16/24 19:35 Antibody Screen NEGATIVE 12/16/24 19:35 Electrocardiogram Date: 12/16/24 Findings: + ST @ Chest X-Ray Date: 12/16/24 Findings: + NAD Echocardiogram Date: 08/18/23 EF: 55 LV Function: normal RWMA: + none Valvular Disease: + no significant valvular disease
--- NOTE | 2024-12-17 15:02 | GI REPORT ---
[facility] Patient: STEFANY STEPHENSON : 1965 Sex at : Male Age: 59 Years Procedure: Upper GI endoscopy Date: 12/17/2024 Attending Physician: Yuri Freedman MD Referring MD: Referred Self Indications: - Suspected upper gastrointestinal bleeding Medications: - Monitored Anesthesia Care Complications: - No immediate complications. Procedure: - Prior to the procedure, a History and Physical was performed, and patient medications and allergies were reviewed. The patient's tolerance of previous anesthesia was also reviewed. The risks and benefits of the procedure and the sedation options and risks were discussed with the patient. All questions were answered, and informed consent was obtained. [Anticoagulant Agents] [Days Prior to Procedure]. [ASA Grade]. After reviewing the risks and benefits, the patient was deemed in satisfactory condition to undergo the procedure. - The egd scope was introduced through the mouth and advanced to the second part of the duodenum. - The upper GI endoscopy was accomplished without difficulty. - The patient tolerated the procedure well. Findings: - Superficial mucosal tear found in the lower third of the esophagus. No bleeding. - Moderate portal hypertensive gastropathy was found in the entire examined stomach. - A large submucosal mass with superficial ulceration with no bleeding and no stigmata was found in the proximal second portion of the duodenum. Impression: - Mucosal tear in the lower esophagus. - Portal hypertensive gastropathy. - Duodenal mass. Needs EUS to determine etiology of mass. Recommend transfer to tertiary care hospital. - No specimens collected. Recommendation: - Resume previous diet. - Patient has a contact number available for emergencies. The signs and symptoms of potential delayed complications were discussed with the patient. Return to normal activities tomorrow. Written discharge instructions were provided to the patient. Procedure Code(s): - 41816, Esophagogastroduodenoscopy, flexible, transoral; diagnostic, including collection of specimen(s) by brushing or washing, when performed (separate procedure) Diagnosis Code(s): - K22.89, Other specified disease of esophagus - K76.6, Portal hypertension - K31.89, Other diseases of stomach and duodenum CPT(R) - 202 copyright [employer]. All Rights Reserved. The CPT codes, CCI edits and ICD codes generated are intended as suggestions and were generated based on input data. These codes are preliminary and upon loft worker apprentice review may be revised to meet current compliance and payer requirements. The provider is responsible for the final determination of appropriate codes, and modifiers. Yuri Freedman MD This document has been electronically signed. Note Initiated:12/17/2024 Note Completed:12/17/2024 3:02 PM [id number]
--- NOTE | 2024-12-17 15:05 | Anesthesiology Progress Note ---
Date of Service December 17, 2024 Anesthesia Post Procedure Vital Signs Vital Signs: Temp Pulse Pulse Resp BP BP Pulse Ox 12/17/24 14:32 74 12/17/24 14:21 12/17/24 14:13 36.5 C 77 18 134/80 97 12/17/24 13:43 36.9 C 78 18 134/86 95 12/17/24 13:29 36.7 C 79 16 132/85 94 12/17/24 11:38 36.8 C 75 24 124/72 99 12/17/24 11:02 36.7 C 77 18 137/88 98 12/17/24 10:40 36.7 C 80 20 141/86 H 96 12/17/24 10:39 36.7 C 82 20 142/101 H 98 12/17/24 10:20 36.7 C 79 16 115/81 98 12/17/24 08:35 36.9 C 78 25 H 118/68 98 12/17/24 08:00 83 12/17/24 06:46 36.9 C 94 H 16 135/78 99 12/17/24 06:20 36.5 C 95 H 16 129/72 98 12/17/24 05:50 37.2 C 90 16 141/77 H 12/17/24 05:20 37.2 C 93 H 16 121/70 94 12/17/24 05:10 12/17/24 05:05 37.3 C 95 H 16 118/85 98 12/17/24 04:50 37.2 C 96 H 20 121/69 97 12/17/24 04:35 37 C 90 20 137/80 99 12/17/24 04:20 37.1 C 92 H 18 129/78 97 12/17/24 03:40 36.7 C 96 H 22 109/71 98 12/17/24 03:40 36.7 C 98 H 22 109/71 96 12/17/24 03:22 102 H 12/17/24 02:00 36.9 C 96 H 28 H 112/66 98 12/17/24 02:00 36.9 C 98 H 28 H 112/66 99 12/17/24 01:26 96 H 12/17/24 01:00 95 H 20 131/67 99 12/17/24 00:50 101 H 20 131/67 99 12/17/24 00:50 99 H 20 98 12/17/24 00:32 37.0 C 103 H 20 124/63 99 12/17/24 00:00 37.0 C 105 H 18 125/72 99 12/16/24 23:40 36.8 C 105 H 18 124/89 97 12/16/24 23:20 104 H 12/16/24 23:10 36.8 C 103 H 18 141/73 H 100 12/16/24 23:00 36.8 C 103 H 18 141/73 H 98 12/16/24 22:55 36.9 C 107 H 26 H 133/72 100 12/16/24 22:38 36.9 C 105 H 20 141/83 H 100 12/16/24 22:22 110 H 18 130/74 100 12/16/24 21:44 121 H 20 122/68 100 12/16/24 21:04 113 H 20 139/75 100 12/16/24 19:26 112 H 12/16/24 19:15 37.2 C 108 H 16 130/80 99 12/16/24 19:15 37.2 C 108 H 16 130/80 99 12/16/24 19:15 37.2 C 108 H 16 130/80 98 O2 Del Method 12/17/24 14:32 12/17/24 14:21 Room Air 12/17/24 14:13 Room Air 12/17/24 13:43 12/17/24 13:29 12/17/24 11:38 Room Air 12/17/24 11:02 Room Air 12/17/24 10:40 12/17/24 10:39 12/17/24 10:20 12/17/24 08:35 Room Air 12/17/24 08:00 12/17/24 06:46 12/17/24 06:20 12/17/24 05:50 12/17/24 05:20 12/17/24 05:10 Room Air 12/17/24 05:05 12/17/24 04:50 12/17/24 04:35 12/17/24 04:20 12/17/24 03:40 12/17/24 03:40 Room Air 12/17/24 03:22 12/17/24 02:00 Room Air 12/17/24 02:00 Room Air 12/17/24 01:26 12/17/24 01:00 Room Air 12/17/24 00:50 Room Air 12/17/24 00:50 Room Air 12/17/24 00:32 12/17/24 00:00 Room Air 12/16/24 23:40 12/16/24 23:20 12/16/24 23:10 12/16/24 23:00 Room Air 12/16/24 22:55 12/16/24 22:38 12/16/24 22:22 Room Air 12/16/24 21:44 Room Air 12/16/24 21:04 Room Air 12/16/24 19:26 12/16/24 19:15 Room Air 12/16/24 19:15 Room Air 12/16/24 19:15 Room Air Transfer of Care Handoff Completed per policy Notes Mental Status: alert / awake / arousable Patient Amnestic to Procedure: Yes Nausea / Vomiting: adequately controlled Pain: adequately controlled Airway Patency, RR, SpO2: stable & adequate BP & HR: stable & adequate Hydration State: stable & adequate Anesthetic Complications: no major complications apparent and Pt Satisfied with anesthetic care
[2024-12-17] MEDS: PROPOFOL IV EMULSION 10 MG/ML 20 ML VIAL IV ONE (15:26)
[2024-12-17] MEDS: LIDOCAINE 2% 2 ML VIAL/AMP(20MG/ML) INFIL ONE (15:26)
--- NOTE | 2024-12-17 16:34 | Hospitalist Progress Note ---
Date of Service December 17, 2024 Assessment & Plan (1) GI bleed: Plan: Suspected upper bleeding source. He has received several units of packed red blood cells this admission. Most recent hemoglobin 9.6 with serial H and H ordered. Appreciate gastroenterology consultation and recommendations. EGD done today, December 17, reveals evidence of nonbleeding lower esophageal mucosal tear, portal hypertensive gastropathy, and a submucosal duodenal mass that will need further assessment. Protonix drip has been switched to oral dosing along with Carafate suspension. Octreotide drip has been discontinued. (2) Acute blood loss anemia: Plan: He has received several units of blood this admission. He presented with hemoglobin 6.6. Hemoglobin is now 9.6. Serial CBC ordered (3) Alcohol abuse: Plan: The patient suffered a fall with closed head injury which prompted this ER visit and subsequent admission. Head CT scan was negative. Supportive care. (4) CHI (closed head injury): Plan: Suffered when he fell prior to coming to the ER. Head CT scan negative. (5) Hypothyroidism: Plan: It is suspected he was not taking his Synthroid as directed. TSH was 29 on admission with low free T4 levels. Oral Synthroid therapy has been restarted (6) Electrolyte imbalance: Plan: Low potassium, magnesium, calcium levels on admission are being treated. Serial labs (7) Elevated lipase: Plan: Presumed from excessive alcohol intake. No overt pancreatitis. Serial labs Plan To be determined by clinical course. Gastroenterology has recommended transfer to a tertiary care center Admission and Anticipated Discharge Date Admission Date: December 17, 2024 Subjective Alert and oriented. No distress. The patient's mother is at his bedside. He was transfused 1 unit packed red blood cells for hemoglobin 6.9 and repeat hemoglobin 9.6. He also received platelet transfusion for platelet count of 32,000 with improvement to 36,000. GI consultation and recommendations appreciated. EGD today revealed evidence of a mucosal tear in the lower esophagus with evidence of portal hypertensive gastropathy and also a submucosal duodenal mass that will need further evaluation at a later date. Gastroenterology has recommended transfer to a tertiary care center. Protonix drip has been switched to oral dosing along with Carafate suspension. Octreotide drip has been discontinued. Synthroid replacement therapy has been restarted since it is believed he was not taking his medication as directed. Review of Systems 2 Review of Systems: Constitutionalno fever or chills ENTno blurred vision, no double vision, no epistaxis, no sore throat Respiratoryno cough, no wheezing, no shortness of breath Cardiacno palpitations, no chest pain, no syncope Brinda nausea, vomiting, diarrhea, melena, hematochezia GUno urinary retention, no urinary incontinence, no dysuria, no hematuria Musculoskeletalno joint pain, no muscle tenderness Skinno bruising, no rashes, no pruritus Neurono isolated weakness, no paresthesia, no weakness Psychno depression, no anxiety Physical Exam 2 Physical Exam: General-alert and oriented x3, no fever, no chills HEENT-head atraumatic and normocephalic, pupils equal and reactive to light, extraocular muscles intact Neck-no lymphadenopathy or thyromegaly, trachea midline Chest-clear to auscultation. No rales, wheezing or rhonchi Cardiac-regular rate and rhythm, normal S1 and S2 Abdomen-normal bowel sounds, no hepatosplenomegaly Extremities-no cyanosis, clubbing, or edema Neuro-cranial nerves II through XII intact, motor and sensory function within normal limits, strength symmetrical, no focal deficits Psych-normal affect, normal mood Results & Data Results & Data Vital Signs (Past 12 Hours) Vital Signs Temp Pulse Pulse Resp BP BP Pulse Ox 12/17/24 16:20 36.6 C 74 15 134/79 96 12/17/24 15:33 80 18 132/80 98 12/17/24 15:18 73 18 136/80 97 12/17/24 15:03 72 18 127/80 98 12/17/24 14:32 74 12/17/24 14:21 12/17/24 14:13 36.5 C 77 18 134/80 97 12/17/24 13:43 36.9 C 78 18 134/86 95 12/17/24 13:29 36.7 C 79 16 132/85 94 12/17/24 11:38 36.8 C 75 24 124/72 99 12/17/24 11:02 36.7 C 77 18 137/88 98 12/17/24 10:40 36.7 C 80 20 141/86 H 96 12/17/24 10:39 36.7 C 82 20 142/101 H 98 12/17/24 10:20 36.7 C 79 16 115/81 98 12/17/24 08:35 36.9 C 78 25 H 118/68 98 12/17/24 08:00 83 12/17/24 06:46 36.9 C 94 H 16 135/78 99 12/17/24 06:20 36.5 C 95 H 16 129/72 98 12/17/24 05:50 37.2 C 90 16 141/77 H 12/17/24 05:20 37.2 C 93 H 16 121/70 94 12/17/24 05:10 12/17/24 05:05 37.3 C 95 H 16 118/85 98 12/17/24 04:50 37.2 C 96 H 20 121/69 97 12/17/24 04:35 37 C 90 20 137/80 99 O2 Del Method 12/17/24 16:20 Room Air 12/17/24 15:33 Room Air 12/17/24 15:18 Room Air 12/17/24 15:03 Room Air 12/17/24 14:32 12/17/24 14:21 Room Air 12/17/24 14:13 Room Air 12/17/24 13:43 12/17/24 13:29 12/17/24 11:38 Room Air 12/17/24 11:02 Room Air 12/17/24 10:40 12/17/24 10:39 12/17/24 10:20 12/17/24 08:35 Room Air 12/17/24 08:00 12/17/24 06:46 12/17/24 06:20 12/17/24 05:50 12/17/24 05:20 12/17/24 05:10 Room Air 12/17/24 05:05 12/17/24 04:50 12/17/24 04:35 Laboratory Results 12/17/24 13:06 12/17/24 02:53 PG Care Time/CCT Total # of Minutes Spent Total Time Spent with Patient: Total time spent is greater than 50% in coordination of care (as documented) at patient's floor/unit and/or counseling patient: Coding Level of Care Code 68271 SUB INP/OBS CARE 3/50MIN Diagnoses GI bleed K92.2 Acute blood loss anemia D62 Alcohol abuse F10.10 CHI (closed head injury) S09.90XA Hypothyroidism E03.9 Electrolyte imbalance E87.8 Elevated lipase R74.8
[2024-12-17] MEDS: SUCRALFATE 1 GM/10 ML UDC PO SCH (17:15)
--- NOTE | 2024-12-17 17:47 | Electrocardiogram Report ---
Test Reason : Blood Pressure : */* mmHG Vent. Rate : 108 BPM Atrial Rate : 108 BPM P-R Int : 136 ms QRS Dur : 76 ms QT Int : 328 ms P-R-T Axes : 58 64 74 degrees QTcB Int : 439 ms Sinus tachycardia Otherwise normal ECG When compared with ECG of 01-Feb-2024 08:10, QT has shortened Confirmed by Emery Rogel ([id number]) on 12/17/2024 5:47:12 PM Referred By: REFERRED SELF Confirmed By: Emery Rogel
[2024-12-17 19:09] LABS: Hematocrit (blood only) 28.4 % (42.0-52.0); Hemoglobin 9.6 g/dl (14.0-18.0); Immature Granulocytes # (auto) 0.04 K/uL (0.01-0.20); Immature Granulocytes % (auto) 0.9 %; Mean Corpuscular Hemoglobin 28.6 pg (25.0-34.0); Mean Corpuscular Volume 84.5 fL (80.0-100.0); Platelet Count 36 K/uL (130-400); RDW Standard Deviation 53.5 fL (36.4-46.3); Red Blood Count 3.36 M/uL (4.70-6.10); White Blood Count 4.60 K/ul (4.8-10.8)
[2024-12-18 01:04] LABS: Hematocrit (blood only) 26.9 % (42.0-52.0); Hemoglobin 9.1 g/dl (14.0-18.0); Immature Granulocytes # (auto) 0.03 K/uL (0.01-0.20); Immature Granulocytes % (auto) 0.7 %; Mean Corpuscular Hemoglobin 28.5 pg (25.0-34.0); Mean Corpuscular Volume 84.3 fL (80.0-100.0); Platelet Count 41 K/uL (130-400); RDW Standard Deviation 53.1 fL (36.4-46.3); Red Blood Count 3.19 M/uL (4.70-6.10); White Blood Count 4.41 K/ul (4.8-10.8)
[2024-12-18 06:22] LABS: Hematocrit (blood only) 25.2 % (42.0-52.0); Hemoglobin 8.8 g/dl (14.0-18.0); Immature Granulocytes # (auto) 0.04 K/uL (0.01-0.20); Immature Granulocytes % (auto) 0.9 %; Mean Corpuscular Hemoglobin 29.2 pg (25.0-34.0); Mean Corpuscular Volume 83.7 fL (80.0-100.0); Platelet Count 40 K/uL (130-400); RDW Standard Deviation 51.9 fL (36.4-46.3); Red Blood Count 3.01 M/uL (4.70-6.10); White Blood Count 4.30 K/ul (4.8-10.8)
[2024-12-18 06:57] LABS: Alanine Aminotransferase 109.0 U/L (7-52); Albumin Globulin Ratio 1.2 (0.9-2); Alkaline Phosphatase 120.0 U/L (34-104); Anion Gap 11.0 (3-11); Bilirubin,Total 2.2 mg/dl (0.2-1.0); Blood Urea Nitrogen 5.0 mg/dl (6-23); Calcium 8.0 mg/dl (8.6-10.3); Carbon Dioxide 25.0 mmol/L (21-32); Chloride 99.0 mmol/L (98-107); Creatinine Clr Calc Pharmacy 77.3 ml/min; Globulin 2.7 gm/dl (2.5-4.0); Glucose 118.0 mg/dl (70-99(Fasting)); Potassium 2.7 mmol/L (3.5-5.1); Sodium 135.0 mmol/L (136-145); Total Protein 6.0 gm/dl (6.0-8.3)
[2024-12-18 08:04] VITALS: BP 121/68; RESP 20; TEMP 98.1; O2SAT 99
[2024-12-18] MEDS: REMOVE NICODERM PATCH SCH (08:21)
[2024-12-18] MEDS: POTASSIUM CHLORIDE CRTAB 20 MEQ TABCR PO SCH (08:25)
[2024-12-18] MEDS: POTASSIUM CHLORIDE / WTR 10 MEQ/100 ML PLCT IV SCH (09:49)
--- NOTE | 2024-12-18 11:42 | Gastroenterology Progress Note ---
Date of Service December 18, 2024 Assessment & Plan (1) Mucosal abnormality of duodenum: Plan: Dr. Freedman reviewed the EGD and CT scan with 2 of our radiologists after this patient's procedure. It was felt that the mass was a duodenal hematoma and we would advise short term CT follow-up within 4-6 weeks. If no resolution, then could consider EUS as an outpatient. Given the new information of a duodenal hematoma, we do not feel he warrants tertiary transfer at this time. (2) Cirrhosis: Plan: Continue recommendations as outlined on 12/17/24. Will need hepatology evaluation. Alcohol rehab info provided. Admission and Anticipated Discharge Date Admission Date: December 17, 2024 Supervising Physician Co-Signing Physician Notes I saw and examined this patient with our nurse practitioner and agree with her assessment and plan. Patient discharged prior to my being able to see him today. Agree with plan of physician materials assistant for outpatient follow-up to include repeat imaging and office visit. Subjective Patient is a 59 yo male who underwent an EGD on 12/17/24. Initial impression on EGD was a duodenal mass and an EUS was recommended. This was not apparent on his last EGD in 2023. Patient's LFTs are decreasing today. He has been provided with alcohol cessation options. He is eager to be discharged. Review of Systems Gastrointestinal: no abdominal pain, no blood in stools and no melena Physical Exam Constitutional: well developed; no acute distress Psychiatric: Orientation: alert and oriented x 3 Results & Data Results & Data Vital Signs (Past 12 Hours) Vital Signs Temp Pulse Pulse Resp BP Pulse Ox O2 Del Method 12/18/24 10:50 71 12/18/24 08:03 36.7 C 68 20 121/68 99 Room Air 12/18/24 03:44 36.6 C 70 18 125/72 97 Room Air PG Care Time/CCT Total # of Minutes Spent Total Time Spent with Patient: Total time spent is greater than 50% in coordination of care (as documented) at patient's floor/unit and/or counseling patient: Coding Level of Care Code 20437 SUB INP/OBS CARE 2/35MIN Diagnoses Mucosal abnormality of duodenum K31.9 Cirrhosis K74.60
[2024-12-18 11:54] VITALS: PULSE 68
--- NOTE | 2024-12-18 12:24 | Discharge Summary ---
Discharge Summary Date of Service December 18, 2024 Principal Dx & Hospital Course #1 = Principal Diagnosis (1) GI bleed: Suspected upper bleeding source. He has received several units of packed red blood cells this admission. Hemoglobin appears to have stabilized. Appreciate gastroenterology consultation and recommendations. EGD done on December 17 reveals evidence of nonbleeding lower esophageal mucosal tear, portal hypertensive gastropathy, and a submucosal duodenal mass that probably is a hematoma. Protonix drip has been switched to oral dosing along with Carafate suspension. Octreotide drip has been discontinued. (2) Acute blood loss anemia: He has received several units of blood this admission. He presented with hemoglobin 6.6. Hemoglobin has now stabilized. (3) Alcohol abuse: The patient suffered a fall with closed head injury which prompted this ER visit and subsequent admission. Head CT scan was negative. Supportive care. (4) CHI (closed head injury): Suffered when he fell prior to coming to the ER. Head CT scan negative. (5) Hypothyroidism: It is suspected he was not taking his Synthroid as directed. TSH was 29 on admission with low free T4 levels. Oral Synthroid therapy has been restarted (6) Electrolyte imbalance: Low potassium, magnesium, calcium levels on admission were all treated while hos pitalized. Serial labs (7) Elevated lipase: Presumed from excessive alcohol intake. No overt pancreatitis. Serial labs Plan The patient is adamant about going home today, December 18. He has specifically asked us not to contact his mother as he will call her himself when he gets home. Admission HPI Per Admitting Provider Alexei Adams is a 59-year-old male with history of hypertension, hypothyroidism, GERD and alcohol use presenting with anemia. Patient provides history but is not clear on some of the details. Additional information obtained through discussion with the ER staff as well as triage notes. He reports tripping in his living room yesterday and hitting the back of his head on a slate fireplace. He denies loss of consciousness. He was able to get up and laid on the couch for an unknown amount of time. Patient was brought in by ambulance this evening. Unable to provide detailed history of when he fell. He was found to have a "dark jellylike stool down both legs, strong odor of urine and dried blood on face and chest". He did report 2 days of diarrhea as well as dizziness. Patient presently denies nausea, vomiting, abdominal pain, chest pain, cough, shortness of breath. Denies blurry vision, loss of vision, headache, neck pain, tinnitus. Patient with history of heavy alcohol use. Does not know how much alcohol he drinks per day. States that he drinks [employer] mishra. He buys handles (1 .75 L) and drinks approximately 2 of these per week. if accurate, each handle = 40 drinks which = 80 drinks per week which = approximately 11.5 drinks per day. Patient denies drinking beer or wine. No use of benzodiazepines or other substances. He denies history of alcohol withdrawal, seizures or blackouts. He has been to rehab in the past but unfortunately continues to drink. His last drink was "a couple of days ago". At present he is denying irritability, agitation or confusion. No history of seizures. ER course: Heme POSITIVE stools per ER attending Normal saline x 1 L LR x 1 L bolus now at 250 mL/h 1 unit PRBCs currently infusing Thiamine 500 mg IV Folic acid 1 mg IV Protonix bolus and drip Octreotide bolus and drip Magnesium 1 g IV Discharge Exam General-alert and oriented x3, no fever, no chills HEENT-head atraumatic and normocephalic, pupils equal and reactive to light, extraocular muscles intact Neck-no lymphadenopathy or thyromegaly, trachea midline Chest-clear to auscultation. No rales, wheezing or rhonchi Cardiac-regular rate and rhythm, normal S1 and S2 Abdomen-normal bowel sounds, no hepatosplenomegaly Extremities-no cyanosis, clubbing, or edema Neuro-cranial nerves II through XII intact, motor and sensory function within normal limits, strength symmetrical, no focal deficits Psych-normal affect, normal mood Discharge Plan Discharge Items Patient Disposition: Home - Self-Care Reason For Visit: UGIB,PANCREATITIS,ETOH Discharge Diagnosis: GI bleed, acute blood loss anemia, mechanical fall with closed head injury, hypocalcemia, hypomagnesemia, hypokalemia, hypophosphatemia, acute kidney injury, duodenal wall hematoma Activity: Resume your previous activity Non-emergency contact: Primary Care Provider Call non-emergency contact if: your symptoms worsen Follow-up/Referrals: PCP,NO [Primary Care Provider] - Diet: Regular Addtl Attending Provider Instructions: Continue Protonix 40 mg twice daily to suppress stomach acid. Take Carafate suspension 4 times daily on an empty stomach for 2 weeks. Continue potassium daily to prevent low potassium levels. All other medications remain the same. Pending Studies at Discharge: No Stand-Alone Forms: My [facility] [employer] - A First [employer] Its Kind Flip Flop, Smoking Cessation Medications and DC Order Prescriptions: New sucralfate 100 mg/mL Suspension 1 g PO QID Qty: 480 0RF potassium chloride 20 mEq Tablet,Er Particles/Crystals 20 meq PO DAILY Qty: 30 0RF pantoprazole 40 mg Tablet,Delayed Release (Dr/Ec) 40 mg PO BID Qty: 60 0RF Continued hydroxyzine pamoate 25 mg capsule 25 mg PO Q6H PRN (Reason: itching) Patient Comments: [facility] 03/18/24 albuterol sulfate 90 mcg/actuation HFA aerosol inhaler 0 puff inhalation UD PRN (Reason: sob) cyanocobalamin (vitamin B-12) [Vitamin B-12] 100 mcg Tablet 100 mcg PO QAM Qty: 30 0RF pantoprazole 40 mg Tablet,Delayed Release (Dr/Ec) 40 mg PO QAM Qty: 30 0RF levothyroxine [Synthroid] 200 mcg Tablet 200 mcg PO DAILYBB Qty: 30 0RF atorvastatin 40 mg tablet 40 mg PO DAILY escitalopram oxalate 20 mg tablet 20 mg PO DAILY valsartan-hydrochlorothiazide 320-12.5 mg tablet 1 tab PO DAILY Discharge Orders: Discharge Order (Routine); Ordered 12/18/24 Ordered By: Italo Polanco Admission Data Admit Date/Time: 12/17/24 00:40 Attending Provider: Italo Polanco Admit Provider: Jennifer Carcamo Primary Care Provider: PCP,NO Other Providers: Jennifer Carcamo; Yuri Freedman I Other Interventions: Discharge Summary Assessment (RN) Last Done: 12/18/24 11:52 Hospital Stay Data Consultations 12/16/24 23:44 ED Decision to Admit Stat 12/17/24 00:40 Consult Gastroenterology Routine Procedures Performed Operation Date: 12/17/24 17:55 Actual Procedures p Esophagogastroduodenoscopy - Yuri Freedman MD Diagnostic Imagining Performed 12/16/24 19:51 CT cervical spine wo con Stat CT head/brain wo con Stat 12/16/24 20:55 CT abd pelvis IV con only Stat Pending Results Patient Have Any Pending Studies at Discharge: No Discharge Instructions Given to Patient (Per Discharging Provider) Continue Protonix 40 mg twice daily to suppress stomach acid. Take Carafate suspension 4 times daily on an empty stomach for 2 weeks. Continue potassium daily to prevent low potassium levels. All other medications remain the same. Total Time Total Time Spent Total Time Spent (In Minutes): 50-minute Coding Level of Care Code 58808 INP/OBS DISCH >30 MIN Diagnoses GI bleed K92.2 Acute blood loss anemia D62 Alcohol abuse F10.10 CHI (closed head injury) S09.90XA Hypothyroidism E03.9 Electrolyte imbalance E87.8 Elevated lipase R74.8
== END 2024-12-18 13:30 | disposition home or self-care (01) | DRG 378 ==
LOC: ED 19:19 → SUATTDRO 12-17 00:40 → EDINP 12-17 00:40 → 2E 12-17 02:49

== ENCOUNTER 2025-01-15 17:21 | Inpatient (IN) ==
[2025-01-15] MEDS: SODIUM CHLORIDE 0.9% 1,000 ML IV SCH (17:50)
[2025-01-15 17:51] LABS: Hematocrit (blood only) 34.4 % (42.0-52.0); Hemoglobin 11.5 g/dl (14.0-18.0); Immature Granulocytes # (auto) 0.04 K/uL (0.01-0.20); Immature Granulocytes % (auto) 0.5 %; Mean Corpuscular Hemoglobin 29.4 pg (25.0-34.0); Mean Corpuscular Volume 88.0 fL (80.0-100.0); Platelet Count 148 K/uL (130-400); RDW Standard Deviation 73.9 fL (36.4-46.3); Red Blood Count 3.91 M/uL (4.70-6.10); White Blood Count 8.16 K/ul (4.8-10.8)
--- NOTE | 2025-01-15 17:51 | Emergency Department Note ---
Impression & Plan Hypokalemia, Hypomagnesemia, Alcohol abuse ED Provider Note NAME: SACHIN MCCALL AGE: 59 SEX: M : 1965 ARRIVES VIA: Ambulance INFORMANT: Patient, ED PROVIDER(S): Jim Georges MD CHIEF COMPLAINT: Welfare check HPI: This is a 59-year-old male presenting for welfare check. Patient was reported as a welfare check by family as patient had not been heard from. Reportedly EMS arrived and patient was hard to wake up/arouse for patient does state he family reported that patient was difficult to arouse today. EMS was alerted and upon arrival noticed patient standing eating fruit. He was unsteady on his feet reportedly. Patient was not oriented to month or year at that time. Patient has a longstanding history of alcoholism. He states he last night last night. Drinks Captvenkat Guevara, "couple cups a day ". Nursing staff told that when they arrived, patient was covered in feces and urine down to his legs. Patient cannot explain why this happened. ROS: See above HPI for pertinent positives & negatives. A total of 10 systems reviewed and were otherwise negative. PAST MEDICAL HISTORY: See Below PAST SURGICAL HISTORY: See Below FAMILY HISTORY: See Below SOCIAL HISTORY: See Below HOME MEDICATIONS: See Below ALLERGIES: See Below VITALS: See Below PHYSICAL EXAMINATION: General: Disheveled, resting comfortably without acute distress Head: Normocephalic and atraumatic Eyes: Normal inspection, extraocular muscles intact Ear, nose, throat: Normal external exam Neck: Normal range of motion Respiratory: lungs clear to auscultation bilaterally Cardiovascular: Regular rate/rhythm, no murmur GI: Distended abdomen, soft, nontender, no guarding or rebound Extremities: nontender, moves all extremities Neuro: The patient awake and alert, not oriented, tremulous Skin: Warm, dry, and intact MEDICAL DECISION MAKING: This is a 59-year-old male presents for confusion/welfare check. Will do screening blood work to assess for dehydration. Consider alcohol withdrawal, Warnicke's encephalopathy, Deconditioning -Blood work is reviewed showing hemoglobin 11.5. Potassium critically low at 2.2, anion gap of 16, likely dehydration versus alcoholic ketosis. Anion mildly low as well as 1.6. AST 153. TSH significant elevated 81 with a T4 low at 0.42. - Alcohol elevated at 125 currently no signs of alcohol withdrawal -Chest Xray independently interpreted by me showing no pneumothorax, focal opacity, or pleural effusions. -This time we will admit the patient for critical potassium, gait stability, deconditioning Differential diagnosis: Alcohol withdrawal, alcohol intoxication, Warnicke Independent History obtained from: EMS Diagnostics interpreted by me: ECG: ECG independently interpreted by me with normal sinus rhythm, rate of 76, normal [place], normal QRS, normal QTc, no ST segment elevations consistent with STEMI criteria Cardiac Monitoring: An order was placed for continuous cardiac monitoring. The monitor shows a rate of 83 with sinus rhythm. Past Med/Surg History Problem List (Updated 01/16/25 @ 00:59 by Jim Georges MD) Anemia (Acute) Mucosal abnormality of duodenum Elevated lipase (Acute) Electrolyte imbalance Cirrhosis Acute blood loss anemia Alcohol abuse (Acute) GI bleed (Acute) Contusion of scalp (Acute) CHI (closed head injury) (Acute) Closed head injury without loss of consciousness Asthma exacerbation Hypokalemia (Acute) Hypomagnesemia (Acute) Right shoulder pain (Acute) EARLINE (acute kidney injury) (Acute) Noncompliance with medication regimen 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 Acute pancreatitis Sepsis Diarrhea (Acute) Abnormal CT of the head (Acute) Weakness (Acute) Hypomagnesemia (Acute) Anemia (Acute) Acute renal failure (ARF) (Acute) Hypomagnesemia Elevated LFTs Hyperlipidemia Acute alcoholic hepatitis (Acute) Benign localized prostatic hyperplasia with lower urinary tract symptoms (LUTS) Prediabetes Presumed- Hgb A1C 6.3 on 10/12/22 Encounter for pre-operative examination Renal insufficiency Dyspnea Left rotator cuff tear Spermatocele Abnormal CT lung screening Coronary artery calcification seen on CAT scan chest CT 03/2020 negative stress test 06/2021 Radial head fracture, closed Left-sided chest pain (Acute) Current smoker Adjustment disorder with depressed mood (Acute) Allergic rhinitis (Acute) Barretts esophagus (Acute) Chronic cough (Acute) Colon polyps (Acute) Hiatal hernia (Acute) Inhibited sexual excitement (Acute) Periodic limb movements of sleep (Acute) Small airways disease (Acute) prn inhaler for this > rare res inh use Asthma INHALER DAILY Hyperlipidemia (Chronic) Hypertension (Chronic) Medical History Tobacco abuse Anemia Alcohol abuse Obstructive sleep apnea no device Hypertension Alcohol withdrawal Hypothyroidism GERD (gastroesophageal reflux disease) UTI (urinary tract infection) Thrombocytopenia Acute dehydration Anxiety Hypothyroidism GERD (gastroesophageal reflux disease) Surgical History S/P wrist surgery R WRIST REPAIR OF TORN TENDON Hx of vasectomy History of colonoscopy History of esophagogastroduodenoscopy (EGD) History of appendectomy History of tooth extraction WISDOM TEETH History of tonsillectomy S/P LASIK surgery of both eyes History of lumbar spinal fusion Family History Father Alcohol abuse COPD (chronic obstructive pulmonary disease) Hypertension Reported family history of early sudden deaths Mother Hypertension Hyperlipidemia Brother Hypertension Sister Graves' disease Social History Smoking Status: Current every day smoker Tobacco Type: Cigarettes Age Started Using Tobacco: 17; packs per day: 1; Cigarettes Per Day: 1 PPD; Second Hand Exposure: No; Do You Dip or Chew Tobacco: No; Hx Alcohol Use: Yes Alcohol type: hard liquor Hx Substance Use: No Preferred Language: Ukrainian Communication Ability: Effective Visual Impairment: Limited Hearing Ability: Normal Residential Housekeeper Required: No Beliefs That Will Affect Care: None marital status: Current Living Situation: Alone Current Living Situation Comment: Live at home alone current occupational status: employed current occupation: [employer] Feels Safe at Home: Yes Childhood Exposure to Second-Hand Smoke: No caffeine: Yes Dental Care, Regularly: Yes Physical Activity Frequency: Does not Exercise Seatbelt Use: always Sunscreen Use: No Assistive Devices: Cane and Walker Allergies Allergies Allergy/AdvReac Type Severity Reaction Status Date / Time Sulfa (Sulfonamide Allergy Intermediate HIVES Verified 12/17/24 14:12 Antibiotics) MARGARET Inhibitors AdvReac Intermediate COUGH Verified 12/17/24 14:12 amlodipine AdvReac Intermediate FATIGUE Verified 12/17/24 14:12 clonidine AdvReac Intermediate HEADACHES Verified 12/17/24 14:12 varenicline [From Chantix] AdvReac Intermediate JITTERY/SHA Verified 12/17/24 14:12 KES Home Meds Home Medications Medication Instructions Recorded Confirmed albuterol sulfate 90 mcg/actuation 2 puff inhalation UD PRN sob 10/17/23 01/15/25 aerosol inhaler hydroxyzine pamoate 25 mg capsule 25 mg PO Q6H PRN itching 03/21/24 01/15/25 atorvastatin 40 mg tablet 40 mg PO QAM 12/17/24 01/15/25 escitalopram oxalate 20 mg tablet 20 mg PO QAM 12/17/24 01/15/25 valsartan 320 1 tab PO QAM 12/17/24 01/15/25 mg-hydrochlorothiazide 12.5 mg tablet potassium chloride 20 mEq 20 meq PO QAM 01/15/25 01/15/25 tablet,extended release(part/cryst) Previous Rx's Medication Instructions Recorded cyanocobalamin (vitamin B-12) 100 100 mcg PO QAM #30 tabs 02/03/24 mcg tablet (Vitamin B-12) pantoprazole 40 mg tablet,delayed 40 mg PO BID #60 tabs 12/18/24 release sucralfate 100 mg/mL oral 1 g (10 mL) PO QID #480 mL 12/18/24 suspension Results & Data (ED) Vital Signs Vital Signs - 24 hr 01/15/25 17:26 01/15/25 17:27 01/15/25 17:30 Temperature 36.7 C Temperature Source Oral Pulse Rate 74 Pulse Rate from SpO2 Sensor Pulse Rhythm Regular Pulse Strength Normal Respiratory Rate 12 Respiratory Effort / Characteristics Non-Labored Spontaneous Respiratory Depth Normal Respiratory Pattern Regular Blood Pressure 106/71 106/71 111/78 Blood Pressure Mean 80 82 83 Blood Pressure Position Sitting Pulse Oximetry 96 Oxygen Delivery Method Room Air Sepsis Recent Fever Within 48 Hours No Sepsis New/Unexplained Change in Mental Status N/A Sepsis Action Taken by Nursing No Action Required 01/15/25 17:31 01/15/25 17:37 01/15/25 17:39 Temperature Temperature Source Pulse Rate 82 89 Pulse Rate from SpO2 Sensor 80 Pulse Rhythm Pulse Strength Respiratory Rate 13 Respiratory Effort / Characteristics Respiratory Depth Respiratory Pattern Blood Pressure Blood Pressure Mean Blood Pressure Position Pulse Oximetry 98 Oxygen Delivery Method Room Air Room Air Sepsis Recent Fever Within 48 Hours Sepsis New/Unexplained Change in Mental Status Sepsis Action Taken by Nursing 01/15/25 17:48 01/15/25 18:21 01/15/25 18:45 Temperature Temperature Source Pulse Rate 75 79 Pulse Rate from SpO2 Sensor 82 Pulse Rhythm Pulse Strength Respiratory Rate 12 14 Respiratory Effort / Characteristics Respiratory Depth Respiratory Pattern Blood Pressure Blood Pressure Mean Blood Pressure Position Pulse Oximetry 95 97 Oxygen Delivery Method Room Air Sepsis Recent Fever Within 48 Hours Sepsis New/Unexplained Change in Mental Status Sepsis Action Taken by Nursing 01/15/25 19:00 01/15/25 19:00 01/15/25 19:00 Temperature Temperature Source Pulse Rate Pulse Rate from SpO2 Sensor Pulse Rhythm Pulse Strength Respiratory Rate Respiratory Effort / Characteristics Respiratory Depth Respiratory Pattern Blood Pressure 117/81 117/81 117/81 Blood Pressure Mean 87 87 87 Blood Pressure Position Pulse Oximetry Oxygen Delivery Method Sepsis Recent Fever Within 48 Hours Sepsis New/Unexplained Change in Mental Status Sepsis Action Taken by Nursing 01/15/25 19:03 01/15/25 19:15 01/15/25 19:32 Temperature Temperature Source Pulse Rate 82 78 Pulse Rate from SpO2 Sensor 82 78 Pulse Rhythm Pulse Strength Respiratory Rate 16 14 Respiratory Effort / Characteristics Respiratory Depth Respiratory Pattern Blood Pressure 113/73 Blood Pressure Mean 78 Blood Pressure Position Pulse Oximetry 96 99 Oxygen Delivery Method Sepsis Recent Fever Within 48 Hours Sepsis New/Unexplained Change in Mental Status Sepsis Action Taken by Nursing Laboratory Data 01/15/25 17:38 01/15/25 17:38 Lab Results 01/15/25 01/15/25 01/15/25 Range/Units 17:33 17:38 19:15 WBC 8.16 (4.8-10.8) K/ul RBC 3.91 L (4.70-6.10) M/uL Hgb 11.5 L (14.0-18.0) g/dl Hct 34.4 L (42.0-52.0) % MCV 88.0 (80.0-100.0) fL MCH 29.4 (25.0-34.0) pg MCHC 33.4 (32.0-36.0) g/dL RDW Std Deviation 73.9 H (36.4-46.3) fL RDW Coeff of Joshua 23.5 H (11.5-14.5) % Plt Count 148 (130-400) K/uL MPV 10.1 (9.4-12.4) fL Immature Gran % (Auto) 0.5 % Neut % (Auto) 69.8 % Lymph % (Auto) 20.2 % [place] % (Auto) 7.5 % Eos % (Auto) 1.1 % Baso % (Auto) 0.9 % Neut # (Auto) 5.70 (1.40-6.50) K/uL Lymph # (Auto) 1.65 (1.20-3.40) K/uL [place] # (Auto) 0.61 H (0.11-0.59) K/uL Eos # (Auto) 0.09 (0.00-0.50) K/uL Baso # (Auto) 0.07 (0.00-0.20) K/uL Immature Gran # (Auto) 0.04 (0.01-0.20) K/uL Polychromasia 1+ Anisocytosis Present PT 12.3 H (9.0-12.0) Seconds INR 1.1 (0.9-1.1) Sodium 134 L (136-145) mmol/L Potassium 2.2 L* (3.5-5.1) mmol/L Chloride 92 L (98-107) mmol/L Carbon Dioxide 26 (21-32) mmol/L Anion Gap 16 H (3-11) BUN 3 L (6-23) mg/dl Creatinine 0.99 (0.6-1.4) mg/dl Est Cr Clr Drug Dosing 68.2 ml/min eGFR 87.21 BUN/Creatinine Ratio 3.0 L (10-20) Glucose 134 H (70-99(Fasting)) mg/dl POC Glucose 134 H (70-99) mg/dl Calcium 9.2 (8.6-10.3) mg/dl Magnesium 1.6 L (1.7-2.4) mg/dl Total Bilirubin 2.2 H (0.2-1.0) mg/dl AST 153 H (13-39) U/L ALT 33 (7-52) U/L Alkaline Phosphatase 255 H (34-104) U/L Total Creatine Kinase 33 (30-223) U/L Total Protein 8.0 (6.0-8.3) gm/dl Albumin 4.1 (3.4-5.0) gm/dl Globulin 3.9 (2.5-4.0) gm/dl Albumin/Globulin Ratio 1.1 (0.9-2) TSH 81.268 H (0.300-4.500) uIu/ml Free T4 0.42 L (0.61-1.60) ng/dl Urine Color Yellow Urine Appearance Clear (Clear) Urine pH 7.5 (4.5-7.5) Ur Specific [place] 1.004 (1.000-1.030) Urine Protein Trace H (Negative) Urine Glucose (UA) Negative (Negative) Urine Ketones Trace H (Negative) Urine Blood Negative (Negative) Urine Nitrite Negative (Negative) Urine Bilirubin Negative (Negative) Urine Urobilinogen Negative (Negative) Ur Leukocyte Esterase Negative (Negative) Urine WBC (Auto) 0-5 (0-5) /hpf Urine RBC (Auto) 0-2 (0-2) /hpf U Hyaline Cast (Auto) 0-2 (0-2) /lpf U Epithel Cells (Auto) 0-2 (0-2) /hpf Urine Bacteria (Auto) None Seen (None Seen) Urine Comment Ethyl Alcohol mg/dL 125.3 H (<10.0) mg/dl Administered Medications Lactated Ringer's (Lr) 1,000 mls @ 125 mls/hr IV .Q8H NAEEM Stop: 01/16/25 05:39 Last Admin: 01/15/25 21:58 Dose: 125 mls/hr Documented By: YULISA Magnesium Sulfate/Dextrose (Magnesium Sulfate / D5w) 1 gm in 100 mls @ 50 mls/hr IV Q2H NAEEM Stop: 01/16/25 01:39 Last Infusion: 01/16/25 00:33 Dose: Infused Documented By: Admin: 01/15/25 22:29 Dose: 50 mls/hr Documented By: AES Pantoprazole Sodium (Pantoprazole 40 Mg Tab) 40 mg PO BID NAEEM Stop: 02/14/25 21:59 Last Admin: 01/15/25 22:30 Dose: 40 mg Documented By: AES Discontinued Medications Folic Acid (Folic Acid 1 Mg Tab) 1 mg PO NOW ONE Stop: 01/15/25 18:21 Last Admin: 01/15/25 18:50 Dose: 1 mg Documented By: MARIO Sodium Chloride (Nss) 1,000 mls @ 999 mls/hr IV .Q1H1M NAEEM Stop: 01/15/25 18:45 Last Infusion: 01/15/25 19:03 Dose: Infused Documented By: Admin: 01/15/25 17:50 Dose: 999 mls/hr Documented By: KYRA Potassium Chloride (K Felice / Wtr) 10 meq in 100 mls @ 100 mls/hr IV Q1H NAEEM Stop: 01/15/25 22:29 Last Infusion: 01/16/25 00:01 Dose: Infused Documented By: Admin: 01/15/25 22:52 Dose: 100 mls/hr Documented By: Infusion: 01/15/25 22:52 Dose: Infused Documented By: Admin: 01/15/25 20:51 Dose: 100 mls/hr Documented By: Infusion: 01/15/25 20:42 Dose: Infused Documented By: Admin: 01/15/25 19:36 Dose: 100 mls/hr Documented By: Infusion: 01/15/25 19:36 Dose: Infused Documented By: Admin: 01/15/25 18:36 Dose: 100 mls/hr Documented By: KYRA Potassium Chloride (Potassium Chloride Crtab 20 Meq Tabcr) 40 meq PO NOW STA Stop: 01/15/25 18:21 Last Admin: 01/15/25 18:36 Dose: 40 meq Documented By: KYRA Potassium Chloride (Potassium Chloride 10 Meq Tabcr) 60 meq PO NOW STA Stop: 01/15/25 21:53 Last Admin: 01/15/25 22:29 Dose: 60 meq Documented By: YULISA Thiamine HCl (Thiamine Hcl 100 Mg Tab) 100 mg PO NOW ONE Stop: 01/15/25 18:21 Last Admin: 01/15/25 18:50 Dose: 100 mg Documented By: MARIO Imaging Data Radiologist's Impression: Chest X-Ray 01/15/25 17:40 Clinical History: Weakness Technique: 2 frontal views of the chest were obtained Findings: There are no confluent pulmonary infiltrates. The heart size is within normal limits. No pleural effusion or definite pneumothorax is seen. An interface in the right lung apex may be due to an overlying soft tissue line. There is no definite pulmonary nodule. No fracture is noted. No foreign body is seen Impression: No active disease Electronically signed by John Olmedo 01-15-2025 6:35 PM Discharge Plan Visit Data Chief Complaint: Lethargic Stated Complaint: LETHARGIC, CONFUSED ED Provider: Jim Georges Discharge Problem: Hypokalemia, Hypomagnesemia, Alcohol abuse Patient Disposition: Admitted As Inpatient Condition: Fair Discharge Instructions Interventions: ED Discharge Assessment Last Done: 01/15/25 21:20
[2025-01-15 18:10] LABS: Anisocytosis Present; Polychromasia 1+
[2025-01-15 18:16] LABS: Alanine Aminotransferase 33.0 U/L (7-52); Albumin Globulin Ratio 1.1 (0.9-2); Alkaline Phosphatase 255.0 U/L (34-104); Anion Gap 16.0 (3-11); Bilirubin,Total 2.2 mg/dl (0.2-1.0); Blood Urea Nitrogen 3.0 mg/dl (6-23); Calcium 9.2 mg/dl (8.6-10.3); Carbon Dioxide 26.0 mmol/L (21-32); Chloride 92.0 mmol/L (98-107); Creatine Kinase 33.0 U/L (30-223); Creatinine Clr Calc Pharmacy 68.2 ml/min; Globulin 3.9 gm/dl (2.5-4.0); Glucose 134.0 mg/dl (70-99(Fasting)); Magnesium 1.6 mg/dl (1.7-2.4); Potassium 2.2 mmol/L (3.5-5.1); Sodium 134.0 mmol/L (136-145); Total Protein 8.0 gm/dl (6.0-8.3)
[2025-01-15 18:20] LABS: INR 1.1 (0.9-1.1); Prothrombin Time 12.3 Seconds (9.0-12.0)
--- NOTE | 2025-01-15 18:35 | XRay Report ---
Clinical History: Weakness Technique: 2 frontal views of the chest were obtained Findings: There are no confluent pulmonary infiltrates. The heart size is within normal limits. No pleural effusion or definite pneumothorax is seen. An interface in the right lung apex may be due to an overlying soft tissue line. There is no definite pulmonary nodule. No fracture is noted. No foreign body is seen Impression: No active disease Electronically signed by John Olmedo 01-15-2025 6:35 PM
[2025-01-15] MEDS: POTASSIUM CHLORIDE / WTR 10 MEQ/100 ML PLCT IV SCH (18:36)
[2025-01-15] MEDS: POTASSIUM CHLORIDE CRTAB 20 MEQ TABCR PO STA (18:36)
[2025-01-15] MEDS: FOLIC ACID 1 MG TAB PO ONE (18:50)
[2025-01-15] MEDS: THIAMINE HCL 100 MG TAB PO ONE (18:50)
[2025-01-15 19:02] LABS: Thyroid Stimulating Hormone 81.268 uIu/ml (0.300-4.500)
[2025-01-15 19:25] LABS: Appearance Urine Clear (Clear); Bacteria Urine Automated None Seen (None Seen); Cast Urine Automated 0-2 /lpf (0-2); Epithelial Cell Urine Auto 0-2 /hpf (0-2); Glucose Urine UA Negative (Negative); RBC Urine Automated 0-2 /hpf (0-2); WBC Urine Automated 0-5 /hpf (0-5)
--- NOTE | 2025-01-15 19:44 | History & Physical Report ---
Date of Service January 15, 2025 Assessment & Plan (1) Electrolyte imbalance: (2) Alcohol abuse: (3) Hyperlipidemia: (4) Hypertension: Plan 59yo male with history of HTN, HLP, GERD and daily EtOH use presenting after a well check initiated by his mother and girlfriend. Patient with some disorientation. Electrolyte abnormality noted with hypokalemia and hypomagnesemia #Hypokalemia - K=2.2. Patient has been given 70mEq thus far -Will give additional 60mEq now -Continue daily supplementation of 20mEq -Telemetry monitoring -Repeat chemistry in AM -LR at 125mL/hr x 1L #Hypomagnesemia - Mg=1.6 -2gm IV Mag ordered #EtOH use daily - patient drinks approximately 5 drinks per day. He denies withdrawal symptoms. No evidence of active withdrawal at present. Low risk on PAWSS -Ativan PRN CIWA score -Thiamine 100mg po daily -Folate 1mg po daily #Hypertension - blood pressure is borderline low -Hold HCTZ and Valsartan for now -Continue to monitor #Hyperlipidemia -Continue Atorvastatin #GERD -Sucralfate 1gm po qACHS -Protonix 40mg po BID #Anxiety/Mental health -Continue Escitalopram -Hydroxyzine PRN History of Present Illness Chief Complaint: confusion Primary Care Provider: NO PCP Alexei Adams is a 59yo male with history of HTN, GERD, daily EtOH use presenting with reported confusion. Patient lives at home alone. Apparently h is mother and girlfriend were unable to get in touch with him so they contacted the police to perform a wellfare check. Familyl reports that he has been very sleepy and difficult to arouse of late. When EMS arrived at his home the patient was reportedly standing up eating fruit but was unsteady on his feet. He was not oriented to month or year but was oriented to self, location and situation. Patient denies any complaints. He is frustrated that his mother called a wellfare check and states that he is fine. He recalls EMS coming into the home today and states that he was simply sitting on his couch watching TV. Patient drinks EtOH daily - states that he will drink approximately 1 handle of Captain Ismael mishra in a week (40 shots/handle over 7 days appx 6 drinks/day). Last drink was last evening 01/14/25 around 21:00. Patient denies history of withdrawal symptoms or seizures. No blackouts. No co-ingestion with benzos or other agents. In the ER patient is afebrile, HD stable ER Course: NSS x 1L KCl 40mEq PO + 30mEq IV = 70mEq Thiamine 100mg PO Folic acid 1mg PO Allergies Allergy/AdvReac Type Severity Reaction Status Date / Time Sulfa (Sulfonamide Allergy Intermediate HIVES Verified 12/17/24 14:12 Antibiotics) MARGARET Inhibitors AdvReac Intermediate COUGH Verified 12/17/24 14:12 amlodipine AdvReac Intermediate FATIGUE Verified 12/17/24 14:12 clonidine AdvReac Intermediate HEADACHES Verified 12/17/24 14:12 varenicline [From Chantix] AdvReac Intermediate JITTERY/SHA Verified 12/17/24 14:12 KES Home Medications Medication Instructions Recorded Confirmed Type albuterol sulfate 90 mcg/actuation 2 puff inhalation UD PRN sob 10/17/23 01/15/25 History aerosol inhaler cyanocobalamin (vitamin B-12) 100 100 mcg PO QAM #30 tabs 02/03/24 01/15/25 Rx mcg tablet (Vitamin B-12) hydroxyzine pamoate 25 mg capsule 25 mg PO Q6H PRN itching 03/21/24 01/15/25 History atorvastatin 40 mg tablet 40 mg PO QAM 12/17/24 01/15/25 History escitalopram oxalate 20 mg tablet 20 mg PO QAM 12/17/24 01/15/25 History valsartan 320 1 tab PO QAM 12/17/24 01/15/25 History mg-hydrochlorothiazide 12.5 mg tablet pantoprazole 40 mg tablet,delayed 40 mg PO BID #60 tabs 12/18/24 01/15/25 Rx release sucralfate 100 mg/mL oral 1 g (10 mL) PO QID #480 mL 12/18/24 01/15/25 Rx suspension potassium chloride 20 mEq 20 meq PO QAM 01/15/25 01/15/25 History tablet,extended release(part/cryst) Past Med/Surg History Problem List Anemia (Acute) Mucosal abnormality of duodenum Elevated lipase (Acute) Electrolyte imbalance Cirrhosis Acute blood loss anemia Alcohol abuse (Acute) GI bleed (Acute) Contusion of scalp (Acute) CHI (closed head injury) (Acute) Closed head injury without loss of consciousness Asthma exacerbation Hypokalemia (Acute) Hypomagnesemia (Acute) Right shoulder pain (Acute) EARLINE (acute kidney injury) (Acute) Noncompliance with medication regimen 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 Acute pancreatitis Sepsis Diarrhea (Acute) Abnormal CT of the head (Acute) Weakness (Acute) Hypomagnesemia (Acute) Anemia (Acute) Acute renal failure (ARF) (Acute) Hypomagnesemia Elevated LFTs Hyperlipidemia Acute alcoholic hepatitis (Acute) Benign localized prostatic hyperplasia with lower urinary tract symptoms (LUTS) Prediabetes Presumed- Hgb A1C 6.3 on 10/12/22 Encounter for pre-operative examination Renal insufficiency Dyspnea Left rotator cuff tear Spermatocele Abnormal CT lung screening Coronary artery calcification seen on CAT scan chest CT 03/2020 negative stress test 06/2021 Radial head fracture, closed Left-sided chest pain (Acute) Current smoker Adjustment disorder with depressed mood (Acute) Allergic rhinitis (Acute) Barretts esophagus (Acute) Chronic cough (Acute) Colon polyps (Acute) Hiatal hernia (Acute) Inhibited sexual excitement (Acute) Periodic limb movements of sleep (Acute) Small airways disease (Acute) prn inhaler for this > rare res inh use Asthma INHALER DAILY Hyperlipidemia (Chronic) Hypertension (Chronic) Medical History Tobacco abuse Anemia Alcohol abuse Obstructive sleep apnea no device Hypertension Alcohol withdrawal Hypothyroidism GERD (gastroesophageal reflux disease) UTI (urinary tract infection) Thrombocytopenia Acute dehydration Anxiety Hypothyroidism GERD (gastroesophageal reflux disease) Surgical History S/P wrist surgery R WRIST REPAIR OF TORN TENDON Hx of vasectomy History of colonoscopy History of esophagogastroduodenoscopy (EGD) History of appendectomy History of tooth extraction WISDOM TEETH History of tonsillectomy S/P LASIK surgery of both eyes History of lumbar spinal fusion Family History Father Alcohol abuse COPD (chronic obstructive pulmonary disease) Hypertension Reported family history of early sudden deaths Mother Hypertension Hyperlipidemia Brother Hypertension Sister Graves' disease Social History Smoking Status: Current every day smoker Tobacco Type: Cigarettes Age Started Using Tobacco: 17; packs per day: 1; Cigarettes Per Day: 1 PPD; Second Hand Exposure: No; Do You Dip or Chew Tobacco: No; Hx Alcohol Use: Yes Alcohol type: hard liquor Hx Substance Use: No Preferred Language: Estonian Communication Ability: Effective Visual Impairment: Limited Hearing Ability: Normal Filters Assembler Required: No Beliefs That Will Affect Care: None marital status: Current Living Situation: Alone Current Living Situation Comment: Live at home alone current occupational status: employed current occupation: [employer] Feels Safe at Home: Yes Childhood Exposure to Second-Hand Smoke: No caffeine: Yes Dental Care, Regularly: Yes Physical Activity Frequency: Does not Exercise Seatbelt Use: always Sunscreen Use: No Assistive Devices: Cane and Walker Review of Systems Review of Systems: All systems reviewed & are unremarkable except as noted in HPI & below Physical Exam Physical Exam: General: patient resting comfortably, NAD, non-toxic in appearance, AA&O x 3 Skin: warm, dry, intact, no rashes or lesions HEENT: NC/AT, PERRL, EOMI, anicteric sclera, conjunctiva without injection, external ear normal to inspection and nontender, nares patent, moist mucus membranes, dentition intact, no oropharyngeal lesions, neck supple, trachea midline, no LAD, no thyromegaly, no JVD Heart: +S1/S2, regular, no m/r/g Lungs: equal air entry bilaterally, no rales/rhonchi/wheezes Abd: +BS, soft, NT/ND, no masses/organomegaly/ascites Ext: warm, 2+ pulses in UE/LE bilaterally, no clubbing/cyanosis or edema Neuro: nonfocal, patient AA&O x 4, speech intact, no facial droop, moving all extremities on command with equal strength 5/5 Results & Data Results & Data Vital Signs (Past 12 Hours) Vital Signs Temp Pulse Resp BP Pulse Ox O2 Del Method 01/15/25 19:32 113/73 01/15/25 19:15 78 14 99 01/15/25 19:03 82 16 96 01/15/25 19:00 117/81 01/15/25 19:00 117/81 01/15/25 19:00 117/81 01/15/25 18:45 79 14 97 01/15/25 18:21 75 12 01/15/25 17:48 95 Room Air 01/15/25 17:39 89 13 98 Room Air 01/15/25 17:37 Room Air 01/15/25 17:31 82 01/15/25 17:30 111/78 01/15/25 17:27 36.7 C 74 12 106/71 96 Room Air 01/15/25 17:26 106/71 Laboratory Results Laboratory Results WBC 8.16 K/ul (4.8-10.8) 01/15/25 17:38 RBC 3.91 M/uL (4.70-6.10) L 01/15/25 17:38 Hgb 11.5 g/dl (14.0-18.0) L 01/15/25 17:38 Hct 34.4 % (42.0-52.0) L 01/15/25 17:38 MCV 88.0 fL (80.0-100.0) 01/15/25 17:38 MCH 29.4 pg (25.0-34.0) 01/15/25 17:38 MCHC 33.4 g/dL (32.0-36.0) 01/15/25 17:38 RDW Std Deviation 73.9 fL (36.4-46.3) H 01/15/25 17:38 RDW Coeff of Joshua 23.5 % (11.5-14.5) H 01/15/25 17:38 Plt Count 148 K/uL (130-400) 01/15/25 17:38 MPV 10.1 fL (9.4-12.4) 01/15/25 17:38 Immature Gran % (Auto) 0.5 % 01/15/25 17:38 Neut % (Auto) 69.8 % 01/15/25 17:38 Lymph % (Auto) 20.2 % 01/15/25 17:38 [place] % (Auto) 7.5 % 01/15/25 17:38 Eos % (Auto) 1.1 % 01/15/25 17:38 Baso % (Auto) 0.9 % 01/15/25 17:38 Neut # (Auto) 5.70 K/uL (1.40-6.50) 01/15/25 17:38 Lymph # (Auto) 1.65 K/uL (1.20-3.40) 01/15/25 17:38 [place] # (Auto) 0.61 K/uL (0.11-0.59) H 01/15/25 17:38 Eos # (Auto) 0.09 K/uL (0.00-0.50) 01/15/25 17:38 Baso # (Auto) 0.07 K/uL (0.00-0.20) 01/15/25 17:38 Immature Gran # (Auto) 0.04 K/uL (0.01-0.20) 01/15/25 17:38 Polychromasia 1+ 01/15/25 17:38 Anisocytosis Present 01/15/25 17:38 PT 12.3 Seconds (9.0-12.0) H 01/15/25 17:38 INR 1.1 (0.9-1.1) 01/15/25 17:38 Sodium 134 mmol/L (136-145) L 01/15/25 17:38 Potassium 2.2 mmol/L (3.5-5.1) L* 01/15/25 17:38 Chloride 92 mmol/L (98-107) L 01/15/25 17:38 Carbon Dioxide 26 mmol/L (21-32) 01/15/25 17:38 Anion Gap 16 (3-11) H 01/15/25 17:38 BUN 3 mg/dl (6-23) L 01/15/25 17:38 Creatinine 0.99 mg/dl (0.6-1.4) 01/15/25 17:38 Est Cr Clr Drug Dosing 68.2 ml/min 01/15/25 17:38 eGFR 87.21 01/15/25 17:38 BUN/Creatinine Ratio 3.0 (10-20) L 01/15/25 17:38 Glucose 134 mg/dl (70-99(Fasting)) H 01/15/25 17:38 POC Glucose 134 mg/dl (70-99) H 01/15/25 17:33 Calcium 9.2 mg/dl (8.6-10.3) 01/15/25 17:38 Magnesium 1.6 mg/dl (1.7-2.4) L 01/15/25 17:38 Total Bilirubin 2.2 mg/dl (0.2-1.0) H 01/15/25 17:38 AST 153 U/L (13-39) H 01/15/25 17:38 ALT 33 U/L (7-52) 01/15/25 17:38 Alkaline Phosphatase 255 U/L (34-104) H 01/15/25 17:38 Total Creatine Kinase 33 U/L (30-223) 01/15/25 17:38 Total Protein 8.0 gm/dl (6.0-8.3) 01/15/25 17:38 Albumin 4.1 gm/dl (3.4-5.0) 01/15/25 17:38 Globulin 3.9 gm/dl (2.5-4.0) 01/15/25 17:38 Albumin/Globulin Ratio 1.1 (0.9-2) 01/15/25 17:38 TSH 81.268 uIu/ml (0.300-4.500) H 01/15/25 17:38 Free T4 0.42 ng/dl (0.61-1.60) L 01/15/25 17:38 Urine Color Yellow 01/15/25 19:15 Urine Appearance Clear (Clear) 01/15/25 19:15 Urine pH 7.5 (4.5-7.5) 01/15/25 19:15 Ur Specific [place] 1.004 (1.000-1.030) 01/15/25 19:15 Urine Protein Trace (Negative) H 01/15/25 19:15 Urine Glucose (UA) Negative (Negative) 01/15/25 19:15 Urine Ketones Trace (Negative) H 01/15/25 19:15 Urine Blood Negative (Negative) 01/15/25 19:15 Urine Nitrite Negative (Negative) 01/15/25 19:15 Urine Bilirubin Negative (Negative) 01/15/25 19:15 Urine Urobilinogen Negative (Negative) 01/15/25 19:15 Ur Leukocyte Esterase Negative (Negative) 01/15/25 19:15 Urine WBC (Auto) 0-5 /hpf (0-5) 01/15/25 19:15 Urine RBC (Auto) 0-2 /hpf (0-2) 01/15/25 19:15 U Hyaline Cast (Auto) 0-2 /lpf (0-2) 01/15/25 19:15 U Epithel Cells (Auto) 0-2 /hpf (0-2) 01/15/25 19:15 Urine Bacteria (Auto) None Seen (None Seen) 01/15/25 19:15 Urine Comment 01/15/25 19:15 Ethyl Alcohol mg/dL 125.3 mg/dl (<10.0) H 01/15/25 17:38 Impressions Chest X-Ray 01/15/25 17:40 Clinical History: Weakness Technique: 2 frontal views of the chest were obtained Findings: There are no confluent pulmonary infiltrates. The heart size is within normal limits. No pleural effusion or definite pneumothorax is seen. An interface in the right lung apex may be due to an overlying soft tissue line. There is no definite pulmonary nodule. No fracture is noted. No foreign body is seen Impression: No active disease Electronically signed by John Olmedo 01-15-2025 6:35 PM PG Care Time/CCT Total # of Minutes Spent Total Time Spent with Patient: Total time spent is greater than 50% in coordination of care (as documented) at patient's floor/unit and/or counseling patient: Coding Level of Care Code 29697 INT INP/OBS CARE 3/75MIN Diagnoses Electrolyte imbalance E87.8 Alcohol abuse F10.10 Hyperlipidemia E78.5 Hypertension I10
[2025-01-15] MEDS ORDERED: DOCUSATE SODIUM 100 MG CAP PO PRN (21:40)
[2025-01-15] MEDS ORDERED: ONDANSETRON INJ 2 MG/ML 2 ML VIAL IV PRN (21:40)
[2025-01-15] MEDS ORDERED: ALBUTEROL HFA 8 GM INHALER INH PRN (21:50)
[2025-01-15] MEDS: LACTATED RINGER'S 1,000 ML IV SCH (21:58)
[2025-01-15] MEDS: POTASSIUM CHLORIDE 10 MEQ TABCR PO STA (22:29)
[2025-01-15] MEDS: MAGNESIUM SULFATE / D5W 1 GM/100 ML BAG IV SCH (22:29)
[2025-01-16] MEDS: LEVOTHYROXINE SODIUM 200 MCG TABLET PO SCH (05:42)
[2025-01-16 08:16] LABS: Hematocrit (blood only) 28.3 % (42.0-52.0); Hemoglobin 9.3 g/dl (14.0-18.0); Mean Corpuscular Hemoglobin 29.2 pg (25.0-34.0); Mean Corpuscular Volume 88.7 fL (80.0-100.0); Platelet Count 110 K/uL (130-400); RDW Standard Deviation 75.0 fL (36.4-46.3); Red Blood Count 3.19 M/uL (4.70-6.10); White Blood Count 8.38 K/ul (4.8-10.8)
[2025-01-16 08:49] LABS: Alanine Aminotransferase 28.0 U/L (7-52); Alkaline Phosphatase 228.0 U/L (34-104); Anion Gap 9.0 (3-11); Bilirubin,Total 2.1 mg/dl (0.2-1.0); Blood Urea Nitrogen 3.0 mg/dl (6-23); Calcium 8.5 mg/dl (8.6-10.3); Carbon Dioxide 26.0 mmol/L (21-32); Chloride 99.0 mmol/L (98-107); Creatinine Clr Calc Pharmacy 69.1 ml/min; Glucose 135.0 mg/dl (70-99(Fasting)); Magnesium 1.8 mg/dl (1.7-2.4); Potassium 2.8 mmol/L (3.5-5.1); Sodium 134.0 mmol/L (136-145); Total Protein 6.6 gm/dl (6.0-8.3)
[2025-01-16] MEDS ORDERED: POTASSIUM CHLORIDE CRTAB 20 MEQ TABCR PO SCH (09:00)
[2025-01-16] MEDS ORDERED: hydroCHLOROthiazide 25 MG TAB PO SCH (09:00)
[2025-01-16] MEDS ORDERED: VALSARTAN 80 MG TAB PO SCH (09:00)
[2025-01-16] MEDS: SUCRALFATE 1 GM/10 ML UDC PO SCH (09:12)
[2025-01-16] MEDS: ATORVASTATIN 40 MG TAB PO SCH (09:13)
[2025-01-16] MEDS: ESCITALOPRAM OXALATE 20 MG TAB PO SCH (09:13)
[2025-01-16] MEDS: MULTIVITAMIN TAB PO SCH (09:13)
[2025-01-16] MEDS: THIAMINE HCL 100 MG TAB PO SCH (09:13)
[2025-01-16] MEDS: FOLIC ACID 1 MG TAB PO SCH (09:14)
[2025-01-16] MEDS: POTASSIUM CHLORIDE CRTAB 20 MEQ TABCR PO SCH ×2 (09:16→21:07)
--- NOTE | 2025-01-16 11:01 | Hospitalist Progress Note ---
Date of Service January 16, 2025 Assessment & Plan (1) Metabolic encephalopathy: Plan: He appears to have combined metabolic and toxic encephalopathy on admission from severe electrolyte disturbance and alcohol intoxication. Now resolved. (2) Transaminitis: Plan: Present on admission. Alcohol etiology. Now downtrending. Statin has been discontinued. Serial labs (3) Electrolyte imbalance: Plan: Hypomagnesemia and hypokalemia present on admission. Parenteral and oral replacement ordered. Serial labs (4) Alcohol abuse: Plan: Continued. Alcohol level was 125 on admission. Alcohol intake cessation highly recommended (5) Hypertension: Plan: Stable. Hydrochlorothiazide has been discontinued since this is obviously contributing to his hypokalemia (6) Hypomagnesemia: Plan: Present on admission. Corrected with parenteral replacement. Serial lab (7) Hypokalemia: Plan: Present on admission. Improving with oral and parenteral replacement therapy. Serial labs (8) Primary hypothyroidism: Plan: TSH is markedly elevated and free T4 markedly low. It appears he has not been taking his levothyroxine at home as directed. His paper slitter will check to see if he even has the medication at home. It has been restarted here while hospitalized. Plan Hopeful discharge to home tomorrow, January 17 Admission and Anticipated Discharge Date Admission Date: January 15, 2025 Subjective Alert and wants to go home. I told him he would probably be discharged tomorrow. Potassium remains low at 2.8. Magnesium corrected to 1.8. Continue intravenous potassium riders and oral potassium increased to twice daily dosing. Physical therapy evaluation ordered. Will repeat comprehensive metabolic profile again tomorrow, January 17. Liver function enzymes were elevated on admission and are trending downward. Alcohol level 125 on admission. Translation Director will check to see if he has levothyroxine at home. His TSH was markedly elevated and free T4 quite low indicating that he has not been taking it at home. It has been resumed here while hospitalized. Review of Systems 2 Review of Systems: Constitutionalno fever or chills ENTno blurred vision, no double vision, no epistaxis, no sore throat Respiratoryno cough, no wheezing, no shortness of breath Cardiacno palpitations, no chest pain, no syncope Brinda nausea, vomiting, diarrhea, melena, hematochezia GUno urinary retention, no urinary incontinence, no dysuria, no hematuria Musculoskeletalno joint pain, no muscle tenderness Skinno bruising, no rashes, no pruritus Neurono isolated weakness, no paresthesia, no weakness Psychno depression, no anxiety Physical Exam 2 Physical Exam: General-alert and oriented x3, no fever, no chills HEENT-head atraumatic and normocephalic, pupils equal and reactive to light, extraocular muscles intact Neck-no lymphadenopathy or thyromegaly, trachea midline Chest-clear to auscultation. No rales, wheezing or rhonchi Cardiac-regular rate and rhythm, normal S1 and S2 Abdomen-normal bowel sounds, no hepatosplenomegaly Extremities-no cyanosis, clubbing, or edema Neuro-cranial nerves II through XII intact, motor and sensory function within normal limits, strength symmetrical, no focal deficits Psych-normal affect, normal mood Results & Data Results & Data Vital Signs (Past 12 Hours) Vital Signs Temp Pulse Pulse Resp BP Pulse Ox O2 Del Method 01/16/25 07:43 36.7 C 77 16 123/76 92 Room Air 01/16/25 04:12 36.8 C 78 18 97/64 L 95 Room Air 01/16/25 04:10 80 Laboratory Results 01/16/25 07:43 01/16/25 07:43 PG Care Time/CCT Total # of Minutes Spent Total Time Spent with Patient: Total time spent is greater than 50% in coordination of care (as documented) at patient's floor/unit and/or counseling patient: Coding Level of Care Code 70120 SUB INP/OBS CARE 3/50MIN Diagnoses Metabolic encephalopathy G93.41 Transaminitis R74.01 Electrolyte imbalance E87.8 Alcohol abuse F10.10 Hypertension I10 Hypomagnesemia E83.42 Hypokalemia E87.6 Primary hypothyroidism E03.9
[2025-01-16] MEDS: POTASSIUM CHLORIDE / WTR 10 MEQ/100 ML PLCT IV SCH (12:52)
--- NOTE | 2025-01-16 17:56 | Electrocardiogram Report ---
Test Reason : Blood Pressure : */* mmHG Vent. Rate : 76 BPM Atrial Rate : 76 BPM P-R Int : 174 ms QRS Dur : 86 ms QT Int : 404 ms P-R-T Axes : -19 -11 3 degrees QTcB Int : 454 ms Normal sinus rhythm Possible Inferior infarct , age undetermined Abnormal ECG When compared with ECG of 16-Dec-2024 19:29, Nonspecific T wave abnormality now evident in Inferior leads Confirmed by Emery Rogel ([id number]) on 01/16/2025 5:55:28 PM Referred By: REFERRED SELF Confirmed By: Emery Rogel
[2025-01-16 23:36] VITALS: RESP 18; TEMP 98.1
[2025-01-17 05:01] LABS: Alanine Aminotransferase 30.0 U/L (7-52); Albumin Globulin Ratio 1.0 (0.9-2); Alkaline Phosphatase 238.0 U/L (34-104); Anion Gap 10.0 (3-11); Bilirubin,Total 1.8 mg/dl (0.2-1.0); Blood Urea Nitrogen 3.0 mg/dl (6-23); Calcium 8.6 mg/dl (8.6-10.3); Carbon Dioxide 25.0 mmol/L (21-32); Chloride 102.0 mmol/L (98-107); Creatinine Clr Calc Pharmacy 74.4 ml/min; Globulin 3.2 gm/dl (2.5-4.0); Glucose 123.0 mg/dl (70-99(Fasting)); Potassium 3.0 mmol/L (3.5-5.1); Sodium 137.0 mmol/L (136-145); Total Protein 6.5 gm/dl (6.0-8.3)
[2025-01-17 08:15] VITALS: BP 134/85; PULSE 71; O2SAT 99
[2025-01-17] MEDS: POTASSIUM CHLORIDE / WTR 10 MEQ/100 ML PLCT IV ONE (09:03)
[2025-01-17] MEDS: VALSARTAN 80 MG TAB PO SCH (09:03)
[2025-01-17] MEDS: POTASSIUM CHLORIDE CRTAB 20 MEQ TABCR PO STA (09:25)
--- NOTE | 2025-01-17 09:32 | Discharge Summary ---
Discharge Summary Date of Service January 17, 2025 Principal Dx & Hospital Course #1 = Principal Diagnosis (1) Metabolic encephalopathy: He appears to have combined metabolic and toxic encephalopathy on admission from severe electrolyte disturbance and alcohol intoxication. Now resolved. (2) Transaminitis: Present on admission. Alcohol etiology. Now downtrending. Statin has been discontinued while hospitalized. Serial labs (3) Electrolyte imbalance: Hypomagnesemia and hypokalemia present on admission. Parenteral and oral replacement ordered. Potassium improved to 3.0 but still remains low today, January 17. Attempted IV potassium replacement was stopped due to burning. Additional oral potassium was administered. He will continue oral potassium intake at discharge serial labs (4) Alcohol abuse: Continued. Alcohol level was 125 on admission. Alcohol intake cessation highly recommended (5) Hypertension: Stable. Hydrochlorothiazide has been discontinued since this is obviously contributing to his hypokalemia. He will remain on valsartan however (6) Hypomagnesemia: Present on admission. Corrected with parenteral replacement. Serial lab (7) Hypokalemia: Present on admission. Improved with oral and parenteral replacement therapy. Serial labs (8) Primary hypothyroidism: TSH is markedly elevated and free T4 markedly low. He was instructed to continue thyroid replacement therapy at discharge. A prescription has been sent to his pharmacy. Plan Home today, January 17. The nurse navigator has arranged a follow-up visit with a physician/PA in 1 week Admission HPI Per Admitting Provider Alexei Adams is a 59yo male with history of HTN, GERD, daily EtOH use presenting with reported confusion. Patient lives at home alone. Apparently his mother and girlfriend were unable to get in touch with him so they contacted the police to perform a wellfare check. Familyl reports that he has been very sleepy and difficult to arouse of late. When EMS arrived at his home the patient was reportedly standing up eating fruit but was unsteady on his feet. He was not oriented to month or year but was oriented to self, location and situation. Patient denies any complaints. He is frustrated that his mother called a wellfare check and states that he is fine. He recalls EMS coming into the home today and states that he was simply sitting on his couch watching TV. Patient drinks EtOH daily - states that he will drink approximately 1 handle of Captain Ismael mishra in a week (40 shots/handle over 7 days appx 6 drinks/day). Last drink was last evening 01/14/25 around 21:00. Patient denies history of withdrawal symptoms or seizures. No blackouts. No co-ingestion with benzos or other agents. In the ER patient is afebrile, HD stable ER Course: NSS x 1L KCl 40mEq PO + 30mEq IV = 70mEq Thiamine 100mg PO Folic acid 1mg PO Discharge Exam General-alert and oriented x3, no fever, no chills HEENT-head atraumatic and normocephalic, pupils equal and reactive to light, extraocular muscles intact Neck-no lymphadenopathy or thyromegaly, trachea midline Chest-clear to auscultation. No rales, wheezing or rhonchi Cardiac-regular rate and rhythm, normal S1 and S2 Abdomen-normal bowel sounds, no hepatosplenomegaly Extremities-no cyanosis, clubbing, or edema Neuro-cranial nerves II through XII intact, motor and sensory function within normal limits, strength symmetrical, no focal deficits Psych-normal affect, normal mood Discharge Plan Discharge Items Patient Disposition: Home - Self-Care Reason For Visit: HYPOKALEMIA Discharge Diagnosis: Metabolic encephalopathy, hypokalemia, hypomagnesemia, alcohol intoxication, transaminitis, hypothyroidism due to suspected medication noncompliance Condition on Discharge: Good Activity: Resume your previous activity Non-emergency contact: Primary Care Provider Call non-emergency contact if: your symptoms worsen Follow-up/Referrals: Sarah Moyer PA-C [Physician Coding Machine Operator] - 01/23/25 2:30 pm (If unable to keep this appointment please call to cancel or reschedule) Diet: Regular Addtl Attending Provider Instructions: Cessation of alcohol intake is highly recommended. Stop hydrochlorothiazide (water pill) portion of the valsartanHCT. A prescription for only valsartan has been sent to your pharmacy. Take thyroid medication on a daily basis as directed. Take potassium on a daily basis to prevent low potassium levels. Prescriptions have been sent to your pharmacy. Keeping your follow-up visit with your primary care provider is highly recommended. Pending Studies at Discharge: No Stand-Alone Forms: My [place] [employer] Communication, Smoking Cessation Medications and DC Order Prescriptions: New levothyroxine [Synthroid] 200 mcg Tablet 200 mcg PO DAILYBB Qty: 30 0RF valsartan 80 mg tablet 80 mg PO DAILY Qty: 30 0RF Continued hydroxyzine pamoate 25 mg capsule 25 mg PO Q6H PRN (Reason: itching) Patient Comments: CONFIRMED W/ PT AND ON [facility] MED LIST 03/18/24 potassium chloride 20 mEq tablet,ER particles/crystals 20 meq PO QAM albuterol sulfate 90 mcg/actuation HFA aerosol inhaler 2 puff inhalation UD PRN (Reason: sob) cyanocobalamin (vitamin B-12) [Vitamin B-12] 100 mcg Tablet 100 mcg PO QAM Qty: 30 0RF atorvastatin 40 mg tablet 40 mg PO QAM escitalopram oxalate 20 mg tablet 20 mg PO QAM sucralfate 100 mg/mL Suspension 1 g PO QID Qty: 480 0RF pantoprazole 40 mg Tablet,Delayed Release (Dr/Ec) 40 mg PO BID Qty: 60 0RF Discontinued valsartan-hydrochlorothiazide 320-12.5 mg tablet 1 tab PO QAM Discharge Orders: Discharge Order (Routine); Ordered 01/17/25 Ordered By: Italo Polanco Admission Data Admit Date/Time: 01/15/25 19:43 Attending Provider: Italo Polanco Admit Provider: Jennifer Carcamo Primary Care Provider: PCP,NO Other Providers: Jennifer Carcamo Other Interventions: Discharge Summary Assessment (RN) Last Done: 01/17/25 09:15 Hospital Stay Data Consultations 01/15/25 19:07 ED Decision to Admit Stat Pending Results Patient Have Any Pending Studies at Discharge: No Discharge Instructions Given to Patient (Per Discharging Provider) Cessation of alcohol intake is highly recommended. Stop hydrochlorothiazide (water pill) portion of the valsartanHCT. A prescription for only valsartan has been sent to your pharmacy. Take thyroid medication on a daily basis as directed. Take potassium on a daily basis to prevent low potassium levels. Prescriptions have been sent to your pharmacy. Keeping your follow-up visit with your primary care provider is highly recommended. Total Time Total Time Spent Total Time Spent (In Minutes): 45 minutes Coding Level of Care Code 36619 INP/OBS DISCH >30 MIN Diagnoses Metabolic encephalopathy G93.41 Transaminitis R74.01 Electrolyte imbalance E87.8 Alcohol abuse F10.10 Hypertension I10 Hypomagnesemia E83.42 Hypokalemia E87.6 Primary hypothyroidism E03.9
== END 2025-01-17 10:35 | disposition home or self-care (01) | DRG 72 ==
LOC: ED 17:21 → SUATTDRO 19:43 → 2N 19:43